=== PATIENT | male | born 1960 | race Caucasian/White ===

== ENCOUNTER 2020-05-08 10:50 | Outpatient (REF) | payer MEDICAID, SELFPAY | END 2020-05-08 10:51 | disposition home or self-care (01) | LOC: HO.LAB 10:50 | PROVIDERS: PCP Internal Medicine; Visit Provider Internal Medicine | DX: Z20.828 Contact with and (suspected) exposure to other viral communicable diseases (principal) | CPT/HCPCS: C9803; U0003 ==

== ENCOUNTER → 2020-11-16 08:55 | Outpatient (REF) | payer MEDICAID, SELFPAY ==
--- NOTE | 2020-11-16 | ECG_ITS ---
Test Reason : QT PROLONG Blood Pressure : / mmHG Vent. Rate : 056 BPM Atrial Rate : 056 BPM P-R Int : 180 ms QRS Dur : 080 ms QT Int : 474 ms P-R-T Axes : -20 -03 027 degrees QTc Int : 457 ms Sinus bradycardia Otherwise normal ECG When compared with ECG of 14-NOV-2015 06:48, No significant change was found Referred By: Steff Rebollar Electronically Signed By:DAVID HOWELL MD
== END ==
LOC: HO.CARD 08:55
PROVIDERS: PCP Internal Medicine; Visit Provider Family Medicine
DX: R94.31 Abnormal electrocardiogram [ECG] [EKG] (principal); Z79.899 Other long term (current) drug therapy
CPT/HCPCS: 93005

== ENCOUNTER 2021-01-09 15:49 | Emergency (ER) | payer MEDICAID, SELFPAY ==
--- NOTE | 2021-01-09 | ECG_ITS ---
Test Reason : CHEST PAIN Blood Pressure : / mmHG Vent. Rate : 064 BPM Atrial Rate : 064 BPM P-R Int : 178 ms QRS Dur : 086 ms QT Int : 418 ms P-R-T Axes : 035 -23 014 degrees QTc Int : 431 ms Normal sinus rhythm Moderate voltage criteria for LVH, may be normal variant Borderline ECG When compared with ECG of 16-NOV-2020 09:18, No significant change was found Referred By: Generic ED Physician Electronically Signed By:Andrea Nina
[2021-01-09 16:26] VITALS: BP 118/77; PULSE 67; RESP 22; TEMP 37.1; O2SAT 94; BMI 38.9
== END 2021-01-09 21:20 | disposition left against medical advice (07) ==
LOC: HO.ED 21:19
PROVIDERS: Emergency Provider Emergency Medicine; PCP Internal Medicine
DX: R07.9 Chest pain, unspecified (principal)
CPT/HCPCS: 93005; 99283

== ENCOUNTER → 2021-04-04 10:28 | Outpatient (REF) | payer MEDICAID, SELFPAY | LOC: HO.CARD 10:28 | PROVIDERS: Visit Provider Internal Medicine | DX: Z13.89 Encounter for screening for other disorder (principal) ==

== ENCOUNTER → 2021-05-09 08:16 | Outpatient (REF) | payer MEDICAID, SELFPAY ==
--- NOTE | 2021-05-09 08:30 | CA_ITS ---
Transthoracic Echocardiogram Patient (Last, First, Middle): Isael Britton A Gender: Male Date of : 1960 Age: 60 Procedure Date: 05/09/2021 Procedure Type: Transthoracic Echocardiogram Location: OP Height: 167.64 cm Weight: 100.7 kg BSA: 2.09 m2 Heart Rate: bpm BP: 145 / 90 mmHg Sr. Merchandise Planner: KARLO Referring MD: Nelly Bach MD Symptoms: E11.66 DM, I27.20 PUL HTN, I50.32 CHRONIC CHF Study Quality: Fair/Contrast ECG Rhythm: Sinus Conclusions: - The left ventricular systolic function is normal. The calculated ejection fraction is 66% by biplane method. - No obvious valvular pathology seen on this study. - The inferior vena cava is mildly dilated and collapses less than 50% with inspiration. Findings Procedure Information Contrast agent, definity, is being given per protocol without apparent complications. Left Ventricle Normal left ventricular cavity size. There is mildly increased left ventricular wall thickness. The left ventricular systolic function is normal. The calculated ejection fraction is 66% by biplane method. There is no evidence of regional wall motion abnormalities. Diastolic function is normal for age. Right Ventricle Normal right ventricular cavity size and systolic function. Atria Both atria are normal in size. Aortic Valve The aortic valve was not well visualized. There is no aortic valve stenosis. There is no aortic valve regurgitation. Mitral Valve The mitral valve appears normal. There is no mitral valve regurgitation. There is no mitral valve stenosis. Pulmonic Valve The pulmonic valve was not well visualized. Tricuspid Valve There is trace tricuspid valve regurgitation. The pulmonary artery systolic pressure is normal. Great Vessels The aortic annulus, sinuses of valsalva, and asc aorta are normal in size. Venous The inferior vena cava is mildly dilated and collapses less than 50% with inspiration. Pericardium/Pleural There is no evidence of pericardial effusion. Prior Study Comparison No significant change compared to prior study dated: 09/05/2014. IVC not described in prior study. Recommendations, Care & Conclusions No obvious valvular pathology seen on this study. Measurements 2D Linear Measurements IVSd: 1.07 0.6-0.9/0.6-1.0 cm LVIDd: 5.16 3.9-5.3/4.2-5.9 cm LVIDd Index: 2.47 2.4-3.2/2.2-3.1 cm/m2 LVIDs: 3.81 2.0-3.6 cm LVPWd: 1.06 0.7-1.1 cm Ao Root: 3.50 2.1-3.5 cm LV Mass: 260.03 67-162/88-224 g LV Mass Index: 124.42 43-95/49-115 g/m2 LVOT Diam: 2.30 3.0+(-)1.3 cm 2D Systolic Function EF 4C: 63.20 >55% EF 2C: 65.50 >55% EF BiP: 65.70 >55% Mitral Valve MV Pk E: 0.72 MV PK A: 1.02 MV Decel Time: 315.00 E/A: 0.70 E'Lateral: 8.70 E'Medial: 6.31 E/E' Med: 11.30 E/E' Lat: 8.20 PHT: 92.00 MVA PHT: 2.39 Decel [place]: 2.27 Aortic Valve AoV Pk Javi: 1.79 AoV Mn Javi: 1.14 AoV VTI: 0.34 AoV Pk Grad: 13.00 Aov Mn Grad: 6.00 FREDRICK Cont.VTI: 2.59 LVOT LVOT Pk Javi: 0.97 LVOT Mn Javi: 0.66 LVOT VTI: 0.21 LVOT Pk Grad: 4.00 LVOT Mn Grad: 2.00 LVOT Diam: 2.30 LVOT Area: 4.15 Diastolic Function MV Pk E: 0.72 MV Pk A: 1.02 E/A: 0.70 E'Medial: 6.31 E/E' Med: 11.30 E' Laterial: 8.70 E/E' Lat: 8.20 Right Ventricle TAPSE (mm): 2.72 TVS' Javi: 19.40 Tricuspid Valve TR Pk Javi: 2.08 TR Pk Grad: 17.00 RA Press: 15.00 RVSP: 32.00 Great Vessels Aorta Ao Root-2D: 3.50 2.0-3.7 cm Ao Asc: 3.20 2.1-3.4 cm Updated in Other Vendor System with Status of Final Camilo Cano MD electronically signed on 05/10/2021 11:30:06 AM with status of Final
== END ==
LOC: HO.CARD 08:16
PROVIDERS: Visit Provider Internal Medicine
DX: I50.32 Chronic diastolic (congestive) heart failure (principal); I27.20 Pulmonary hypertension, unspecified
CPT/HCPCS: 93306; Q9957

== ENCOUNTER 2021-06-18 14:39 | Outpatient (REF) | payer MEDICAID, SELFPAY ==
[2021-06-19 14:29] LABS: H Pylori Breath Test Negative (Negative)
== END 2021-06-18 14:40 | disposition home or self-care (01) ==
LOC: HO.LNP 14:39
PROVIDERS: PCP Internal Medicine; Referring Provider Internal Medicine; Visit Provider Nurse Practitioner Family
DX: K59.04 Chronic idiopathic constipation (principal); R14.0 Abdominal distension (gaseous); K58.1 Irritable bowel syndrome with constipation; K21.9 Gastro-esophageal reflux disease without esophagitis
CPT/HCPCS: 83013; 99202

== ENCOUNTER 2021-06-19 10:32 | Outpatient (REF) | payer MEDICAID, SELFPAY ==
[2021-06-19 11:15] LABS: Hemoglobin 13.3 g/dl (14.0-18.0); Mean Corpuscular HGB Conc 30.9 g/dl (31.0-36.0); Mean Corpuscular Volume 93.9 fL (80.0-98.0); Mean Platelet Volume 9.3 fL (9.4-12.4); Platelet Count 169 X10*3/uL (160-400); Red Blood Count 4.58 X10*6/uL (4.60-5.80); Red Cell Distribution Width 14.6 % (11.0-16.0); White Blood Count 8.9 X10*3/uL (4.8-10.8)
[2021-06-19 11:43] LABS: Alanine Aminotransferase 24 U/L (0-40); Alkaline Phosphatase 122 U/L (39-117); Anion Gap 13 (12-20); Aspartate Amino Transferase 33 U/L (5-37); Bilirubin Total 0.8 mg/dL (0.0-1.0); Blood Urea Nitrogen 21 mg/dL (9-16); Calcium 9.9 mg/dL (8.4-10.2); Carbon Dioxide 30 mmol/L (22-29); Chloride 101 mmol/L (96-108); Estimated Glomerular Filt Rate 54; Glucose Random 141 mg/dL (60-115); Potassium 5.3 mmol/L (3.3-5.1); Sodium 139 mmol/L (135-145); Total Protein 8.2 g/dL (6.5-8.0)
[2021-06-19 12:06] LABS: TSH reflex Free T4 0.72 uIU/mL (0.32-4.0)
[2021-06-19 12:20] LABS: Folate > 20.0 ng/mL (> or = 4.0); Vitamin B12 353 pg/mL (200-900)
[2021-06-22 06:51] LABS: Transglutaminase Ab IgG <1.0 U/mL; Transglutaminase IgA <1.0 U/mL
== END 2021-06-19 10:33 | disposition home or self-care (01) ==
LOC: HO.LAB 10:32
PROVIDERS: PCP Internal Medicine; Visit Provider Nurse Practitioner Family
DX: Z12.11 Encounter for screening for malignant neoplasm of colon (principal); R10.11 Right upper quadrant pain; R19.7 Diarrhea, unspecified; R14.0 Abdominal distension (gaseous)
CPT/HCPCS: 36415; 80053; 82607; 82746; 84443; 85027; 86364

== ENCOUNTER → 2021-07-24 07:52 | Outpatient (BNVA) | payer MEDICAID, SELFPAY | PROVIDERS: PCP Internal Medicine; Referring Provider Internal Medicine; Visit Provider Nurse Practitioner Family | DX: K59.04 Chronic idiopathic constipation (principal); K21.9 Gastro-esophageal reflux disease without esophagitis; K58.1 Irritable bowel syndrome with constipation; R14.0 Abdominal distension (gaseous); R06.02 Shortness of breath; I50.9 Heart failure, unspecified | CPT/HCPCS: 99212 ==

== ENCOUNTER → 2021-08-17 13:36 | Outpatient (BNVA) | payer MEDICAID, SELFPAY | PROVIDERS: PCP Internal Medicine; Visit Provider Hospitalist | DX: G47.33 Obstructive sleep apnea (adult) (pediatric) (principal); R06.00 Dyspnea, unspecified | CPT/HCPCS: 99202 ==

== ENCOUNTER 2021-09-28 11:17 | Inpatient (IN) | payer MEDICAID, SELFPAY ==
[2021-09-28] VITALS (10 sets, daily range): BP systolic 81–123; BP diastolic 47–73; PULSE 47–76; RESP 16–24; TEMP 35.6–38.4; O2SAT 87–95; BMI 41.6
--- NOTE | 2021-09-28 | ECG_ITS ---
Test Reason : Bradycardia Blood Pressure : / mmHG Vent. Rate : 045 BPM Atrial Rate : 045 BPM P-R Int : 236 ms QRS Dur : 094 ms QT Int : 498 ms P-R-T Axes : -21 -04 -04 degrees QTc Int : 430 ms Sinus bradycardia with 1st degree A-V block Otherwise normal ECG When compared to the previous EKG of Vent. rate has decreased Referred By: Gallo Polo Electronically Signed By:DAVID HOWELL MD
--- NOTE | ~2021-09-28 | XR_ITS ---
EXAMINATION: XR CHEST CLINICAL INFORMATION: Severe hypoxemia. Post cardiac arrest. COMPARISON: Previous chest x-ray most recent from yesterday and chest CT 09/28/2021 TECHNIQUE: Frontal view of the chest was obtained. FINDINGS: The endotracheal tube tip is 0.5 cm above the jian and should be pulled back several centimeters. There is a nasogastric tube that projects over the stomach. The tip is not seen. There is a right jugular line with tip projecting over the SVC. Cardiac silhouette is enlarged but stable. The mediastinum appears prominent but stable. When compared with previous CT scan this may be related to lymphadenopathy. The lung volumes are low. There is increasing bilateral airspace disease. There are increasing bilateral pleural effusions. No pneumothorax. XR/XR chest 1V IMPRESSION: Endotracheal tube 0.5 cm above the jian and should be pulled back several centimeters. Nasogastric tube projects over stomach, tip not seen. Low lung volumes. Increasing bilateral airspace disease and bilateral pleural effusions. Findings will be communicated by the [place] work flow room service food server.
--- NOTE | ~2021-09-28 | NM_ITS ---
EXAMINATION: NM LUNG IMAGE PERFUSION CLINICAL INFORMATION: Status post cardiac arrest. Suspected PE. COMPARISON: Chest radiograph done on 09/29/2021. TECHNIQUE: Perfusion only serial gamma scintillation camera images were obtained over the chest in 8 projections, following injecting 4.0 mCi Tc-99m MAA intravenously. The ventilation part of the study could not be obtained (patient was vented in ICU)). FINDINGS: Symmetric radiotracer distribution is noted throughout both lung dubose without evidence of any segmental or large perfusion defect on either side. NM/AR pul perfusion IMPRESSION: Based on the perfusion only modified PIOPED II criteria, pulmonary thromboembolism is considered absent.
--- NOTE | ~2021-09-28 | XR_ITS ---
EXAMINATION: XR CHEST CLINICAL INFORMATION: Respiratory failure COMPARISON: 09/28/2021 TECHNIQUE: Frontal view of the chest was obtained. FINDINGS: The endotracheal tube terminates 0.5 cm above the jian. Enteric tube extends into the stomach. Right internal jugular central venous catheter terminates near the cavoatrial junction. Lung volumes are low. Increased airspace opacity of the right mid to lower lung. Increasing left basilar opacity as well. No pneumothorax. The cardiomediastinal silhouette remains prominent, with a calcified aorta. XR/XR chest 1V IMPRESSION: Endotracheal tube terminates 0.5 cm above the jian. Suggest retraction. Worsening bilateral lung opacities. This critical result was discussed with ADAN Shaw, by telephone at 09/29/2021 3:36 AM and it was ascertained that the content and urgency of the report was understood at the time of direct communication.
--- NOTE | ~2021-09-28 | CT_ITS ---
EXAMINATION: CT CHEST WITHOUT CONTRAST CLINICAL INFORMATION: Cough, shortness of breath, hypoxia. COMPARISON: Chest radiographs dated 09/28/2021 and 11/24/2019. Chest CT scan dated 09/14/2014. TECHNIQUE: Multidetector volumetric CT imaging of the chest was done. Axial MIP volume rendering provided. Sagittal and coronal reformatted images were obtained. This CT examination was performed using dose optimization techniques as appropriate, variously including the following: *Automated exposure control *Adjustment of mA and/or kV according to patient size (this includes techniques or standardized protocols for targeted exams where dose is matched to indication/reason for exam; i.e. extremities or head) *Use of iterative reconstruction technique DLP: 408 mGy-cm FINDINGS: LUNGS/PLEURA/AIRWAYS: Mild respiratory motion artifact limits evaluation. Consolidation is seen posteriorly in the right lower lobe extending to the superior segment with air bronchograms. Linear opacities are seen to a lesser extent in the right middle lobe and left lower lobe. No suspicious pulmonary nodules. No pleural effusions. The airways are patent. MEDIASTINUM: The visualized thyroid gland is unremarkable. Mild atherosclerosis in the thoracic aorta without significant dilatation. Minimal coronary artery calcifications. No pericardial effusion. UPPER ABDOMEN: Hepatic enlargement with surface nodularity as well as upper extremity caudate lobe. Mildly enlarged gastrohepatic and peripancreatic lymph nodes without significant change. Mild interval enlargement of right paratracheal lymph nodes. A inside sales account representative right paratracheal lymph node measures 1.5 cm in short axis (previously 1.2 cm), image 10, series 3. A second nodule measures 1.2 cm (previously 0.9 cm), image 13, series 3). MUSCULOSKELETAL: Unremarkable. SOFT TISSUES: Moderate bilateral gynecomastia. CT/CT chest wo con IMPRESSION: 1. Bilateral consolidation, significantly most pronounced in the right lower lobe suggesting atelectasis and/or infiltrates. This is much more pronounced compared to radiographs from today. Short-term follow-up with PA and lateral views of the chest are recommended as clinically indicated to assess for change. 2. Mild interval enlargement of previously seen enlarged right paratracheal lymph nodes are nonspecific, but may be reactive to this process. 3. Hepatomegaly and cirrhosis with increased caudate lobe hypertrophy. Mildly enlarged gastrohepatic lymph nodes have not significant change. 4. Moderate bilateral gynecomastia was not seen previously.
--- NOTE | ~2021-09-28 | US_ITS ---
EXAMINATION: US VENOUS ULTRASOUND WITH DOPPLER LOWER EXTREMITY, BILATERAL CLINICAL INFORMATION: Evaluate for DVT COMPARISON: Ultrasound August 2014 TECHNIQUE: Ultrasound of the deep veins is performed from the hip to the calf with compression sonography and color and pulse Doppler assessment. Spectral analysis with color-flow imaging is performed. FINDINGS: RIGHT: There is normal venous compression and respiratory variation and augmented flow. The visualized common femoral vein, superficial femoral vein, profunda femoral vein, popliteal vein, and the trifurcation region shows no evidence of deep venous thrombosis. There is no significant popliteal fossa cyst. LEFT: There is normal venous compression and respiratory variation and augmented flow. The visualized common femoral vein, superficial femoral vein, profunda femoral vein, popliteal vein, and the trifurcation region shows no evidence of deep venous thrombosis. There is no significant popliteal fossa cyst. If the patient's symptoms persist, followup ultrasound in 5 days 7 days might be of value to exclude proximal propagation from a non-visualized calf vein. US/US venous duplex LE BI IMPRESSION: No DVT demonstrated in the right and left lower extremity.
--- NOTE | ~2021-09-28 | XR_ITS ---
EXAMINATION: XR CHEST CLINICAL INFORMATION: Hypoxia COMPARISON: Chest 09/26/2021 TECHNIQUE: Frontal view of the chest was obtained. FINDINGS: The lungs are hypoexpanded with bilateral small pleural effusions and bibasilar patchy opacities likely atelectasis and/or consolidation. Heart size enlarged. Pulmonary vascularity is prominent but no congestion seen. Position of right jugular central line and enteric tube are in suspicious for acute position. Tip of endotracheal tube has been advanced and now measures 2.3 cm above the jian XR/XR chest 1V IMPRESSION: Cardiomegaly without congestion. Bilateral pleural effusions with bibasilar atelectasis.
--- NOTE | ~2021-09-28 | CT_ITS ---
EXAMINATION: CT CHEST WITHOUT CONTRAST CLINICAL INFORMATION: Severe hypoxemia after cardiac arrest COMPARISON: Previous chest x-rays most recent from yesterday and chest CT 09/28/2021 TECHNIQUE: Multidetector volumetric CT imaging of the chest was done. Axial MIP volume rendering provided. Sagittal and coronal reformatted images were obtained. This CT examination was performed using dose optimization techniques as appropriate, variously including the following: *Automated exposure control *Adjustment of mA and/or kV according to patient size (this includes techniques or standardized protocols for targeted exams where dose is matched to indication/reason for exam; i.e. extremities or head) *Use of iterative reconstruction technique DLP: 318 mGy-cm FINDINGS: REPLENISHMENT BUYER: LUNGS: There is an endotracheal tube with tip 6 cm above the jian. The lung volumes are low. There is dense bilateral lower lobe consolidation and air bronchograms suggestive of pneumonia. This appears increased from 09/28/2021 exam. There is patchy airspace disease seen in the bilateral upper and right middle lobes that is new and is suggestive of pneumonia as well. MEDIASTINUM: The heart is enlarged. There is no pericardial effusion. There are prominent mediastinal lymph nodes similar to recent exam. There is a nasogastric tube with tip in the stomach. There is a right jugular line with tip in the distal SVC. PLEURA: There are small bilateral pleural effusions. There is no pneumothorax. AXILLA: There is bilateral symmetric gynecomastia. No enlarged axillary lymph nodes. UPPER ABDOMEN: The liver appears cirrhotic. There is no ascites. OSSEOUS STRUCTURES: There are degenerative changes of the spine. No rib or sternal fracture is seen. There are degenerative changes at the sternomanubrial joint. CT/CT chest wo con IMPRESSION: Worsening bilateral multilobar pneumonia greatest in the bilateral lower lobes. Small bilateral pleural effusions. Enlarged heart. Stable mediastinal lymphadenopathy. Cirrhotic-appearing liver. Fleischner guidelines were followed.
--- NOTE | ~2021-09-28 | US_ITS ---
EXAMINATION: US ABDOMEN COMPLETE CLINICAL INFORMATION: Abdominal distention and nausea. Evaluate for hepatomegaly and ascites. COMPARISON: Previous CT of the abdomen and pelvis November [address] from earlier the same day TECHNIQUE: Real-time imaging of the abdominal viscera. FINDINGS: PANCREAS: Not well visualized ABDOMINAL AORTA: Not well visualized INFERIOR VENA CAVA: Not well visualized LIVER: Not well visualized. The liver is echogenic. The liver contour is slightly irregular suggestive of mild cirrhotic change. No biliary duct dilatation or liver lesion is seen. GALLBLADDER: Not visualized. COMMON BILE DUCT: Not visualized.. RIGHT KIDNEY: Normal. The kidney measures 10.3 cm in maximum dimension. LEFT KIDNEY: Normal. The kidney measures 11.5 cm in maximum dimension. SPLEEN: Normal. The spleen measures 9.5 cm in maximum dimension. FREE FLUID: None. US/US abdomen complete IMPRESSION: Very limited exam. No ascites. Echogenic liver and changes of mild cirrhosis.
--- NOTE | ~2021-09-28 | XR_ITS ---
EXAMINATION: XR CHEST CLINICAL INFORMATION: Shortness of breath. Respiratory distress. COMPARISON: Chest radiograph dated from 10/11/2021. TECHNIQUE: AP view of the chest was obtained. FINDINGS: Stable prominence of the cardiomediastinal silhouette. Similar to slightly increased bibasilar airspace opacities and bilateral pleural effusions which are somewhat suboptimally assessed in the setting of low lung volumes. No pneumothorax. No acute osseous abnormalities. XR/XR chest 1V IMPRESSION: Similar to slightly increased bibasilar airspace opacities and bilateral pleural effusions when compared to 10/11/2021.
--- NOTE | ~2021-09-28 | XR_ITS ---
EXAMINATION: XR CHEST CLINICAL INFORMATION: Chest pain. COMPARISON: 11/24/2019 chest radiographs. TECHNIQUE: Frontal view of the chest was obtained. FINDINGS: Pleural thickening is again seen bilaterally most pronounced inferiorly. There is mild prominence of the pulmonary vasculature and cardiac silhouette. The mediastinal structures are unremarkable. XR/XR chest 1V IMPRESSION: Pleural thickening versus small bilateral pleural effusions are similar to the 2019 study likely representing chronic changes. Mild congestion cannot be excluded.
--- NOTE | ~2021-09-28 | XR_ITS ---
EXAMINATION: XR CHEST CLINICAL INFORMATION: Intubated. Previous severe hypoxemia after cardiac arrest. COMPARISON: CT chest 10/01/2021. Chest radiograph 09/30/2021. TECHNIQUE: Frontal view of the chest was obtained. FINDINGS: An endotracheal tube terminates 4 cm superior to the jian. A right internal jugular catheter terminates in the region of the cavoatrial junction. Enteric tube terminates in projection with the stomach. Low lung volumes are present with the fifth anterior rib segments terminating projection with the lung bases. Mild blunting of left right costophrenic sulci. No pneumothoraces. Mild bibasilar airspace type opacities with findings most pronounced the left lung base with obscuration of the left hemidiaphragmatic margin. XR/XR chest 1V IMPRESSION: *Endotracheal tube terminating 4 cm superior to the jian. *Enteric tube terminating within the stomach. *Right internal jugular catheter terminating at the cavoatrial junction. *Small bilateral pleural effusions. *Mild bibasilar atelectasis and/or consolidation. Pulmonary aeration is markedly improved compared with 09/30/2021 9:01 AM chest radiograph.
--- NOTE | ~2021-09-28 | XR_ITS ---
EXAMINATION: XR CHEST CLINICAL INFORMATION: Cough COMPARISON: 10/07/2021 TECHNIQUE: Frontal view of the chest was obtained. FINDINGS: The lungs are hypoinflated. Small bilateral pleural effusions are redemonstrated along with retrocardiac left basilar opacity. No appreciable pneumothorax. Prominent cardiac silhouette is similar to prior. No acute osseous findings are seen. XR/XR chest 1V IMPRESSION: Persistent small pleural effusions and retrocardiac opacity, similar to 10/07/2021.
--- NOTE | ~2021-09-28 | US_ITS ---
EXAMINATION: US VENOUS ULTRASOUND WITH DOPPLER LOWER EXTREMITY, BILATERAL CLINICAL INFORMATION: Fevers COMPARISON: Ultrasound venous Doppler lower extremity bilateral from 09/29/2021 TECHNIQUE: Ultrasound of the deep veins is performed from the hip to the calf with compression sonography and color and pulse Doppler assessment. Spectral analysis with color-flow imaging is performed. Technical limitations secondary to patient intubated in the ICU. FINDINGS: RIGHT: There is normal venous compression and respiratory variation and augmented flow. The visualized common femoral vein, superficial femoral vein, profunda femoral vein, popliteal vein, and the trifurcation region shows no evidence of deep venous thrombosis. There is no significant popliteal fossa cyst. LEFT: There is normal venous compression and respiratory variation and augmented flow. The visualized common femoral vein, superficial femoral vein, profunda femoral vein, popliteal vein, and the trifurcation region shows no evidence of deep venous thrombosis. Left peroneal vein not well visualized. There is no significant popliteal fossa cyst. Left groin lymph node noted measuring 1.0 x 0.6 x 0.8 cm. If the patient's symptoms persist, followup ultrasound in 5 days 7 days might be of value to exclude proximal propagation from a non-visualized calf vein. US/US venous duplex LE BI IMPRESSION: 1. No DVT demonstrated in the bilateral lower extremity. 2. Left peroneal vein not well visualized, limiting evaluation at this level. 3. Left groin lymph node noted measuring 1.0 x 0.6 x 0.8 cm.
--- NOTE | ~2021-09-28 | CT_ITS ---
EXAMINATION: CT HEAD WITHOUT CONTRAST CLINICAL INFORMATION: Coma status post cardiac arrest COMPARISON: Head CT 08/22/2009 TECHNIQUE: Contiguous axial imaging was performed from the skull base to vertex without intravenous administration of contrast. This CT examination was performed using dose optimization techniques as appropriate, variously including the following: *Automated exposure control *Adjustment of mA and/or kV according to patient size (this includes techniques or standardized protocols for targeted exams where dose is matched to indication/reason for exam; i.e. extremities or head) *Use of iterative reconstruction technique DLP: 1016 mGy-cm FINDINGS: There is no evidence of acute intracranial hemorrhage or territorial infarction. No abnormal mass effect or midline shift is appreciated. Menjivar-white differentiation is well preserved. No extra-axial fluid collections. The ventricular system and cortical sulci are normal in size. There are subtle areas of low density in the periventricular and subcortical white matter, most consistent with sequelae of microvascular ischemic change. Bilateral basal ganglia calcifications noted, asymmetrically more prominent on the right. The osseous structures and soft tissues are normal. There are calcifications of the cavernous internal carotid arteries. The visualized paranasal sinuses and mastoid air cells are well aerated. CT/CT head/brain wo con IMPRESSION: Chronic microvascular ischemic changes with no CT evidence of acute intracranial abnormality.
--- NOTE | 2021-09-28 11:33 | ECG_ITS ---
Test Reason : dyspnea Blood Pressure : / mmHG Vent. Rate : 074 BPM Atrial Rate : 074 BPM P-R Int : 224 ms QRS Dur : 082 ms QT Int : 398 ms P-R-T Axes : 007 -10 014 degrees QTc Int : 441 ms Sinus rhythm with 1st degree A-V block Otherwise normal ECG When compared with ECG of 09-JAN-2021 16:37, MI interval has increased Nonspecific T wave abnormality now evident in Lateral leads Referred By: Generic ED Physician Electronically Signed By:DAVID HOWELL MD
--- NOTE | 2021-09-28 11:46 | PC.NURSE ---
Pt comes in via EMS from [facility] with c/o Nausea and cough x 1 week with fevers at home. Pt was covid and flu negative per EMS, on 4L NC and O2 sat in the mid 90's at this time. Pt is NSR on monitor, febrile, lungs diminished in the bases, IV established by EMS. Call castillo within reach, awaiting MD rico, will continue to monitor.
[2021-09-28 11:58] LABS: Hematocrit 35.8 % (42.0-52.0); Hemoglobin 11.7 g/dl (14.0-18.0); Mean Corpuscular HGB Conc 32.7 g/dl (31.0-36.0); Mean Corpuscular Hemoglobin 30.2 pg (27.0-33.0); Mean Corpuscular Volume 92.3 fL (80.0-98.0); Mean Platelet Volume 9.6 fL (9.4-12.4); Platelet Count 201 X10*3/uL (160-400); Red Blood Count 3.88 X10*6/uL (4.60-5.80); Red Cell Distribution Width 14.7 % (11.0-16.0)
[2021-09-28 12:06] LABS: White Blood Count 30.8 X10*3/uL (4.8-10.8)
[2021-09-28 12:08] LABS: Anion Gap 13 (12-20); Blood Urea Nitrogen 31 mg/dL (9-16); Calcium 9.7 mg/dL (8.4-10.2); Carbon Dioxide 29 mmol/L (22-29); Chloride 95 mmol/L (96-108); Creatinine Clr Calc Pharmacy 51.1; Estimated Glomerular Filt Rate 42; Glucose Random 160 mg/dL (60-115); Potassium 4.9 mmol/L (3.3-5.1); Sodium 132 mmol/L (135-145)
[2021-09-28 12:15] LABS: B Type Natriuretic Peptide 1289 pg/mL (<100); Troponin-I High Sensitivity 13.7 ng/L (<3.5-35.0)
[2021-09-28 12:19] LABS: Band Neutrophils Percent 25 % (3-5); Lymphocytes Absolute Manual 0.3 X10*3/uL (1.2-4.9); Lymphocytes Percent Manual 1 % (20-40); Metamyelocytes Absolute 1.2 X10*3/uL; Metamyelocytes Percent 4 %; Monocytes Absolute Manual 1.8 X10*3/uL (0.1-1.2); Monocytes Percent Manual 6 % (2-11); Neutrophils Absolute Manual 27.4 X10*3/uL (2.0-8.3); Neutrophils Percent Manual 64 % (45-73)
[2021-09-28 12:20] LABS: Toxic Vacuolation PRESENT
[2021-09-28 12:21] LABS: Platelet Estimate NORMAL (NORMAL); Platelet Morphology Comment NORMAL; RBC Morphology NORMAL
[2021-09-28] MEDS: Acetaminophen 325 MG TABLET 975 MG PO (12:53)
[2021-09-28] MEDS: cefTRIAXone sodium 1 GM in 0.9 % Sodium Chloride 50 ML IV (12:55)
[2021-09-28 13:04] LABS: Alanine Aminotransferase 18 U/L (0-40); Albumin Level 3.3 g/dL (3.5-5.0); Alkaline Phosphatase 93 U/L (39-117); Aspartate Amino Transferase 21 U/L (5-37); Bilirubin Direct 1.6 mg/dL (0.0-0.5); Bilirubin Total 2.6 mg/dL (0.0-1.0)
[2021-09-28 13:31] LABS: Lactic Acid 2.8 mmol/L (0.5-2.0)
[2021-09-28 13:33] LABS: IDNOW Serial# 55D5AD1C
[2021-09-28 13:34] LABS: COVID-19 Test Negative (Negative)
--- NOTE | 2021-09-28 13:44 | PHA.MEDREC ---
Pharmacy Consult ? Medication Reconciliation Pharmacy has completed the medication reconciliation.
[2021-09-28 13:45] LABS: IDNOW Serial# 16C4AD1C; Influenza A Negative (Negative); Influenza B2 Negative (Negative)
[2021-09-28] MEDS: Albuterol/Iprat 2.5/0.5MG 3 ML AMPUL.NEB INHALE (14:03)
[2021-09-28] MEDS: methylPREDNISolone Sod Succ 125 MG/2 ML VIAL 80 MG IVPUSH (14:12)
--- NOTE | 2021-09-28 15:00 | ED.SOB ---
HPI - SOB/Dyspnea General Chief Complaint: Dyspnea Stated Complaint: nausea Time Seen by Provider: 09/28/21 12:18 Source: patient Mode of arrival: EMS Limitations: language barrier ( Lithuanian-speaking medical insurance clerk utilized) History of Present Illness HPI Narrative: patient presents to the emergency department, from his primary care office at [facility] reporting cough and shortness of breath for 1 week that has become progressively worse. In addition he has been having chest pain for 2 days described as sub sternal, worse with deep inspiration or cough. Associated nausea but no vomiting. Denies known fever, chills, nasal congestion, vomiting, abdominal pain, dysuria, diarrhea, constipation, lower extremity edema, weakness, falls. Upon EMS arrival was noted to be hypoxic with room air saturation in the high 80s, O2 saturation on 4 L between 92 and 94%. Related Data Home Medications Medication Instructions Recorded Confirmed folic acid 1 mg tablet 1 mg PO DAILY 06/18/21 09/28/21 lisinopril 20 mg tablet 20 mg PO DAILY 06/18/21 09/28/21 metformin 850 mg tablet 850 mg PO BIDWM 06/18/21 09/28/21 spironolactone 50 mg tablet 50 mg PO DAILY 06/18/21 09/28/21 thiamine HCl (vitamin B1) 100 mg 100 mg PO DAILY 06/18/21 09/28/21 tablet carvedilol 3.125 mg tablet 1 tab PO BID 09/28/21 09/28/21 furosemide 20 mg tablet 1 tab PO DAILY 09/28/21 09/28/21 omeprazole 40 mg capsule,delayed 40 mg PO DAILY@0630 09/28/21 09/28/21 release prazosin 1 mg capsule 1 cap PO BEDTIME PRN 09/28/21 09/28/21 Previous Rx's Medication Instructions Recorded methylcellulose (laxative) 500 mg 500 mg PO DAILY #30 tab 07/24/21 tablet (Citrucel) sennosides 8.6 mg tablet (Natural 17.2 mg PO BEDTIME #60 tab 07/24/21 Senna Laxative) simethicone 180 mg capsule (Gas 180 mg PO BID PRN #60 cap 07/24/21 Relief (simethicone)) ipratropium 20 mcg-albuterol 100 1 puff INHALATION QID 30 Days #4 g 08/17/21 mcg/actuation mist for inhalation (Combivent Respimat) Allergies Allergy/AdvReac Type Severity Reaction Status Date / Time aspirin [ASPIRIN] Allergy Unknown RASH Unverified 08/17/21 13:44 ibuprofen Allergy Unknown nausea and Verified 08/17/21 13:44 vomiting Review of Systems Review of Systems: Constitutional : Positive fever, No Chills, no weight loss ENT/Mouth : No sore throat, No Rhinorrhea, No Swallowing Difficulty Eyes: No Eye Pain, No Swelling, No Redness Cardiovascular : positive Chest Pain, positive SOB, positive Orthopnea, no Edema Respiratory : positive Cough, positive Sputum, positive Wheezing, positive dyspnea Gastrointestinal : positive Nausea, No Vomiting, No Diarrhea, No abdominal Pain, No Hematochezia, No Melena Genitourinary : No Dysuria, No Urinary Frequency, No Hematuria Musculoskeletal : No joint pain, No Myalgias Skin : No Skin Lesions, No rash Neuro : No Weakness, No Numbness, No Dizziness, No Headache Psych : No Anxiety/Panic, No Depression Heme/Lymph: No Bruising, No Lymphadenopathy Endocrine : No Polyuria, No Polydipsia Yes all other systems are reviewed and are negative FORMERLY [facility], [facility] Past Medical History Attestation statement: The following information was validated with the patient. Source: old records reviewed Medical History (Updated 09/28/21 @ 15:54 by Shania Navarro MD) Chronic kidney disease Congestive heart failure Diabetes DARRIAN (obstructive sleep apnea) Family History Family History Mother Cancer Diabetes Social History Social History Household Members: None Housing: House Do you presently have visiting nurse or other home services: No Patient Tobacco Use Status: Never used Tobacco e-Cigarette/Vaping Use: Never Used Use of substances other than those prescribed or required for medical reasons: No Currently Displaying Signs/Symptoms of Drug Intoxication Withdrawal: No Any prior treatment program specific to substance use: Yes Have you been hit, kicked, punched, or otherwise hurt by someone within the past year? If so, by whom?: No Do you feel safe in your current relationship?: No Is there a partner from a previous relationship who is making you feel unsafe now?: No Are you made to feel afraid or neglected: No Advance Directives: No Advance Directives Information Provided: Yes Advance Directives on File: No Do you have thoughts of harming others: None Do you have a plan to hurt others: No Plan Physical Exam Vital Signs: Vital Signs: Last Vital Signs Temp 98.0 F 09/28/21 19:06 Pulse 57 09/28/21 19:06 Resp 20 09/28/21 19:06 BP 101/59 L 09/28/21 19:06 Pulse Ox 90 L 09/28/21 19:06 Oxygen Flow Rate 4 09/28/21 11:25 BMI result Body Mass Index 41.6 Vital signs have been reviewed and appeared to be correct. Blood pressure low normal 101/60.? Heart rate normal.? tachypnea. initially febrile 101.2? initial hypoxia with O2 saturation high 80s improved on nasal cannula to 92% at 4 L Appearance: Alert.?Oriented to person, place and time. No acute distress.?Normal affect. Eyes: Pupils equal, round and reactive to light.?EOMi ENT: Pharynx normal.?? Neck: Normal inspection.? Neck supple.?? CVS: Heart sounds normal. Normal heart rate and rhythm.? Pulses normal.?? Respiratory: notable increased work of breathing. Congested cough. Right lower lobe with expiratory wheezing, left lower lobe with rales. Upper lobes coarse throughout. Abdomen: Soft, Semi firm, distended. Normoactive bowel sounds. No pulsatile mass.?? Skin: Skin warm and dry.? Normal skin color.? Normal skin turgor.?? Extremities: nonpitting lower extremity edema.? No calf ttp? Neuro: Moves all extremities spontaneously. Sensation intact bilaterally. CN II-XII intact. No focal neuro deficits. Ambulates with normal steady gait. Course Course Course Narrative: 1230: first contact with patient patient is a 61-year-old male with a past medical history of congestive heart failure recent echocardiogram May 2022 1 revealing ejection fraction of 66%, CKD, diabetes managed on metformin, DARRIAN, irritable bowel syndrome, GERD who presents to the emergency department for evaluation cough and shortness of breath. He is ill-appearing, toxic, febrile, with increased work of breathing. Protocol labs obtained imcluding CBC reveals significant leukocytosis with WBC 30.8 with left shift, CMP revealing acute kidney injury BUN 31 creatinine 1.69, with mild hyponatremia 132. EKG reveals sinus rhythm with first-degree AV block no acute concern for ischemia, and troponin 13.7. BNP is elevated 1289. At this time patient meeting sirs criteria, concern for sepsis secondary to respiratory infection, blood cultures and lactic acid ordered at this time, ceftriaxone 1 g IV ordered, normal saline 30 mg/kg fluid bolus ordered at ideal body weight, tylenol for fever, patient to remain on O2 via nasal cannula at this time. Will obtain Chest x-ray to evaluate for consolidation/ infiltrate/ mass/ pulmonary congestion in addition to urinalysis to evaluate for infection. Reevaluation(s) Reevaluation #1: initial lactic acid 2.8. Chest x-ray revealing pleural thickening versus small bilateral pleural effusions similar to prior 2020 study, mild congestion cannot be excluded. Given patient's presentation, persistent increased work of breathing will obtained CT chest to further evaluate. Continue to have high suspicion for pneumonia at this time, will add doxycycline for additional coverage, Solu-Medrol IV ordered, addition to DuoNeb updraft. COVID- 19 and influenza testing were negative. Time: 13:00 Reevaluation #2: CT of the chest reveals bilateral consolidations significantly most pronounced in the right lower lobe. Hepatomegaly and cirrhosis with increased caudate lobe hypertrophy, will obtain ultrasound of the abdomen to further evaluate for ascites. Spoke with Dr Navarro, on hospital service, who accepts patient for admission to medicine, Patient is agreeable with this plan. Time: 14:45 MDM - SOB/Dyspnea Medical Records Attestation: I reviewed the patient's medical records. Lab Data Attestation: I reviewed the patient's lab results. Result diagrams: 09/28/21 11:46 09/28/21 11:46 Labs: Lab Results 09/28/21 09/28/21 09/28/21 Range/Units 11:46 11:46 11:46 WBC 30.8 H* (4.8-10.8) X10*3/uL RBC 3.88 L (4.60-5.80) X10*6/uL Hgb 11.7 L (14.0-18.0) g/dl Hct 35.8 L (42.0-52.0) % MCV 92.3 (80.0-98.0) fL MCH 30.2 (27.0-33.0) pg MCHC 32.7 (31.0-36.0) g/dl RDW 14.7 (11.0-16.0) % Plt Count 201 (160-400) X10*3/uL MPV 9.6 (9.4-12.4) fL Immature Gran % (Auto) Cancelled Neut % (Auto) Cancelled Lymph % (Auto) Cancelled [place] % (Auto) Cancelled Eos % (Auto) Cancelled Baso % (Auto) Cancelled Lymph # (Auto) Cancelled [place] # (Auto) Cancelled Eos # (Auto) Cancelled Baso # (Auto) Cancelled Abs Immat Gran (auto) Cancelled Absolute Neuts (auto) Cancelled Absolute Nucleated RBC 0.000 (0.0-0.012) X10*3/uL Nucleated RBC % (auto) 0.0 (0.0-0.2) /100WBC Neutrophils % (Manual) 64 (45-73) % Band Neutrophils % 25 H (3-5) % Lymphocytes % (Manual) 1 L (20-40) % Monocytes % (Manual) 6 (2-11) % Metamyelocytes % 4 % Abs Neuts (Manual) 27.4 H (2.0-8.3) X10*3/uL Lymphocytes # (Manual) 0.3 L (1.2-4.9) X10*3/uL Monocytes # (Manual) 1.8 H (0.1-1.2) X10*3/uL Metamyelocytes # 1.2 X10*3/uL Toxic Vacuolation PRESENT Platelet Estimate NORMAL (NORMAL) Plt Morphology Comment NORMAL RBC Morphology NORMAL Sodium 132 L (135-145) mmol/L Potassium 4.9 (3.3-5.1) mmol/L Chloride 95 L (96-108) mmol/L Carbon Dioxide 29 (22-29) mmol/L Anion Gap 13 (12-20) BUN 31 H (9-16) mg/dL Creatinine 1.69 H (0.5-1.4) mg/dL Estim Creat Clear Calc 51.1 Estimated GFR 42 Random Glucose 160 H (60-115) mg/dL Lactic Acid (0.5-2.0) mmol/L Calcium 9.7 (8.4-10.2) mg/dL Total Bilirubin 2.6 H (0.0-1.0) mg/dL Direct Bilirubin 1.6 H (0.0-0.5) mg/dL AST 21 (5-37) U/L ALT 18 (0-40) U/L Alkaline Phosphatase 93 D (39-117) U/L Troponin I High Sens 13.7 (<3.5-35.0) ng/L B-Natriuretic Peptide 1289 H (<100) pg/mL Total Protein 7.0 (6.5-8.0) g/dL Albumin 3.3 L (3.5-5.0) g/dL COVID-19 (SHERITA) (Negative) COVID-19 Clin Com Influenza Type A (HIEN) (Negative) Influenza Type B (HIEN) (Negative) Influenza A & B Note 09/28/21 09/28/21 09/28/21 Range/Units 13:00 13:00 13:00 WBC (4.8-10.8) X10*3/uL RBC (4.60-5.80) X10*6/uL Hgb (14.0-18.0) g/dl Hct (42.0-52.0) % MCV (80.0-98.0) fL MCH (27.0-33.0) pg MCHC (31.0-36.0) g/dl RDW (11.0-16.0) % Plt Count (160-400) X10*3/uL MPV (9.4-12.4) fL Immature Gran % (Auto) Neut % (Auto) Lymph % (Auto) [place] % (Auto) Eos % (Auto) Baso % (Auto) Lymph # (Auto) [place] # (Auto) Eos # (Auto) Baso # (Auto) Abs Immat Gran (auto) Absolute Neuts (auto) Absolute Nucleated RBC (0.0-0.012) X10*3/uL Nucleated RBC % (auto) (0.0-0.2) /100WBC Neutrophils % (Manual) (45-73) % Band Neutrophils % (3-5) % Lymphocytes % (Manual) (20-40) % Monocytes % (Manual) (2-11) % Metamyelocytes % % Abs Neuts (Manual) (2.0-8.3) X10*3/uL Lymphocytes # (Manual) (1.2-4.9) X10*3/uL Monocytes # (Manual) (0.1-1.2) X10*3/uL Metamyelocytes # X10*3/uL Toxic Vacuolation Platelet Estimate (NORMAL) Plt Morphology Comment RBC Morphology Sodium (135-145) mmol/L Potassium (3.3-5.1) mmol/L Chloride (96-108) mmol/L Carbon Dioxide (22-29) mmol/L Anion Gap (12-20) BUN (9-16) mg/dL Creatinine (0.5-1.4) mg/dL Estim Creat Clear Calc Estimated GFR Random Glucose (60-115) mg/dL Lactic Acid 2.8 H* (0.5-2.0) mmol/L Calcium (8.4-10.2) mg/dL Total Bilirubin (0.0-1.0) mg/dL Direct Bilirubin (0.0-0.5) mg/dL AST (5-37) U/L ALT (0-40) U/L Alkaline Phosphatase (39-117) U/L Troponin I High Sens (<3.5-35.0) ng/L B-Natriuretic Peptide (<100) pg/mL Total Protein (6.5-8.0) g/dL Albumin (3.5-5.0) g/dL COVID-19 (SHERITA) Negative (Negative) COVID-19 Clin Com See Note Influenza Type A (HIEN) Negative (Negative) Influenza Type B (HIEN) Negative (Negative) Influenza A & B Note See Note Imaging Data CT scan - chest: Radiologist's impression: CT/CT chest wo con IMPRESSION: 1. Bilateral consolidation, significantly most pronounced in the right lower lobe suggesting atelectasis and/or infiltrates. This is much more pronounced compared to radiographs from today. Short-term follow-up with PA and lateral views of the chest are recommended as clinically indicated to assess for change. 2. Mild interval enlargement of previously seen enlarged right paratracheal lymph nodes are nonspecific, but may be reactive to this process. 3. Hepatomegaly and cirrhosis with increased caudate lobe hypertrophy. Mildly enlarged gastrohepatic lymph nodes have not significant change. 4. Moderate bilateral gynecomastia was not seen previously. Chest x-ray: Radiologist's impression: XR/XR chest 1V IMPRESSION: Pleural thickening versus small bilateral pleural effusions are similar to the 2020 study likely representing chronic changes. Mild congestion cannot be excluded. ECG Data Attestation: I personally reviewed and interpreted this ECG as follows: ECG interpretation date: 09/28/21 Prior ECG tracings: available for review Interpretation: Rate: 74 Rhythm:? sinus rhythm with 1st degree AV block [place]:? Normal P waves.? prolonged ABDIRIZAK, 224 Normal QRS complex.?? ST T wave :?? no ST elevation, no ST depression, qTC: 441 prior studies:? January 2021 The study has been interpreted contemporaneously by me. Critical Care Time Critical Care Time Critical Care Time: Yes Total Critical Care Time: 45 Attestation: I personally attest to this time spent taking care of the patient Discharge Plan Discharge Clinical Impression: Community acquired pneumonia, Sepsis Patient Disposition: Admitted As Inpatient Interventions: Admission Worksheet (ED) Last Done: 09/28/21 16:42 Discharge Date/Time: 09/28/21 16:43
[2021-09-28 15:10] LABS: Reflex Lactate? Lactic Acid Added
[2021-09-28] MEDS: Azithromycin 500 MG in 0.9 % Sodium Chloride 250 ML 125 MG IV (15:38)
--- NOTE | 2021-09-28 15:42 | PM.IMHP ---
History of Present Illness Date of Service: 09/28/21 Chief Complaint: abdominal bloating, coughing a 61 years old male with PMH of diabetes, HTN, morbid obesity among others who presents to the hospital with shortness of breath, cough and abdominal bloating for 1 week.His difficulty breathing has been associated with subjective fever, chills, coughing and shortness of breath with exertion. Reported chest tightness specially after coughing episodes. Denies any nausea, vomiting, change in bowel habit, urinary symptoms. The patient reported that he has been having abdominal bloating and discomfort for the last few months that was evaluated by Gastroenterology previously as reported shortness of breath that was also evaluated by pulmonology with a plan to do Pulmonary function test next week. In the emergency he was found septic with a vitals of pneumonia will chest images. Noted to have an evidence of cirrhosis that he reports being unaware of but his medication list suggest he is on some medications for cirrhosis. Admitted for further evaluation and treatment. Review of Systems Review of Systems: No fever, chills or weakness No chest pain, palpitation No shortness of breath or coughing No abdominal pain, nausea or vomiting No urinary symptoms No any rash or wounds [facility] Medical History (Updated 09/28/21 @ 15:54 by Shania Navarro MD) Chronic kidney disease Congestive heart failure Diabetes DARRIAN (obstructive sleep apnea) Family History Mother Cancer Diabetes Social History Patient Tobacco Use Status: Never used Tobacco Advance Directives: No Advance Directives Information Provided: Yes Meds Allergies Allergy/AdvReac Type Severity Reaction Status Date / Time aspirin [ASPIRIN] Allergy Unknown RASH Unverified 08/17/21 13:44 ibuprofen Allergy Unknown nausea and Verified 08/17/21 13:44 vomiting Active Medications: Current Medications Albuterol/Ipratropium (Albuterol/Iprat 2.5/0.5mg 3 Ml Ampul.Neb) 3 ml INHALE RQ6H PRN PRN Reason: Shortness of Breath/Wheezing Carvedilol (Carvedilol 3.125 Mg Tablet) 3.125 mg PO BID THAI; Protocol Folic Acid (Folic Acid 1 Mg Tablet) 1 mg PO DAILY THAI Furosemide (Furosemide 20 Mg Tablet) 20 mg PO DAILY THAI; Protocol Azithromycin 500 mg/ Sodium (Chloride) 250 mls @ 125 mls/hr IV Q24H THAI Last Admin: 09/28/21 15:38 Dose: 125 mls/hr Documented by: Piperacillin Sod/Tazobactam (Sod 3.375 gm/ Sodium Chloride) 50 mls @ 100 mls/hr IV Q6H [facility] Insulin Human Lispro (Insulin Lispro 100 Unit/Ml 3 Ml Vial) 0 unit SUBCUT QIDACHS THAI; Protocol Lactulose (Lactulose 20 Gm/30 Ml Solution) 20 gm PO DAILY [facility] Lisinopril (Lisinopril 20 Mg Tablet) 20 mg PO DAILY THAI; Protocol Omeprazole (Omeprazole 40 Mg Capsule.Dr) 40 mg PO DAILY@0630 [facility] Ondansetron HCl (Ondansetron Hcl 4 Mg/2 Ml Vial) 4 mg IVPUSH Q8H PRN PRN Reason: Nausea and Vomiting Pharmacy Consult (Consult Rx Perform Med Rec) 1 each MISCELLANE ONCE PRN PRN Reason: Consult order Pharmacy Consult (Consult Rx Etoh Phenob Po Dose) 1 each MISCELLANE ONCE PRN; Protocol PRN Reason: Consult order Prazosin HCl (Prazosin Hcl 1 Mg Capsule) 1 mg PO BEDTIME PRN; Protocol PRN Reason: nightmares Senna (Sennosides 8.6 Mg Tablet) 17.2 mg PO BEDTIME [facility] Simethicone (Simethicone 80 Mg Tab.Chew) 80 mg PO QIDWMHS [facility] Sodium Chloride (0.9 % Sodium Chloride Flush 3 Ml Syringe) 3 ml IVFLUSH QSHIFT [facility] Spironolactone (Spironolactone 25 Mg Tablet) 50 mg PO DAILY [facility]; Protocol Thiamine HCl (Thiamine Hcl 100 Mg Tablet) 100 mg PO DAILY [facility] Home Medications Medication Instructions Recorded Confirmed Last Taken Type folic acid 1 mg tablet 1 mg PO DAILY 06/18/21 09/28/21 Unknown History lisinopril 20 mg tablet 20 mg PO DAILY 06/18/21 09/28/21 Unknown History metformin 850 mg tablet 850 mg PO BIDWM 06/18/21 09/28/21 Unknown History spironolactone 50 mg tablet 50 mg PO DAILY 06/18/21 09/28/21 Unknown History thiamine HCl (vitamin B1) 100 mg 100 mg PO DAILY 06/18/21 09/28/21 Unknown History tablet carvedilol 3.125 mg tablet 1 tab PO BID 09/28/21 09/28/21 Unknown History furosemide 20 mg tablet 1 tab PO DAILY 09/28/21 09/28/21 Unknown History omeprazole 40 mg capsule,delayed 40 mg PO DAILY@0630 09/28/21 09/28/21 Unknown History release prazosin 1 mg capsule 1 cap PO BEDTIME PRN 09/28/21 09/28/21 Unknown History Physical Exam Vital Signs and Narrative: Vital Signs: Last Vital Signs Temp 98.6 F 09/28/21 14:13 Pulse 62 09/28/21 14:13 Resp 24 H 09/28/21 14:13 BP 101/60 09/28/21 14:13 Pulse Ox 92 09/28/21 13:27 Oxygen Flow Rate 4 09/28/21 11:25 BMI result Body Mass Index 41.6 Const: Other: Constitutional : Alert, oriented, not in distress Blood looks uncomfortable Neck : Normal inspection, Supple Cardiovascular : RRR, no JVP, Trace bilateral lower extremity edema Respiratory : decreased bilateral air entry mainly in the right-side with associated coarse crackles, no wheezes or rhonchi Gastrointestinal: soft, lax, Normal bowel sounds, Non tender, distended with no clear ascites Skin : Warm, Dry with associated bilateral Gynecomastia Neurological : Alert & oriented to self and place but seems unsure about answers, No focal deficit Results Labs CBC and Chem 7: 09/28/21 11:46 09/28/21 11:46 Labs: Laboratory Results - last 24 hr 09/28/21 09/28/21 09/28/21 11:46 11:46 11:46 MCV 92.3 MCH 30.2 MCHC 32.7 RDW 14.7 Plt Count 201 MPV 9.6 Immature Gran % (Auto) Cancelled Neut % (Auto) Cancelled Lymph % (Auto) Cancelled [place] % (Auto) Cancelled Eos % (Auto) Cancelled Baso % (Auto) Cancelled Lymph # (Auto) Cancelled [place] # (Auto) Cancelled Eos # (Auto) Cancelled Baso # (Auto) Cancelled Abs Immat Gran (auto) Cancelled Absolute Neuts (auto) Cancelled Absolute Nucleated RBC 0.000 Nucleated RBC % (auto) 0.0 Neutrophils % (Manual) 64 Band Neutrophils % 25 H Lymphocytes % (Manual) 1 L Monocytes % (Manual) 6 Metamyelocytes % 4 Abs Neuts (Manual) 27.4 H Lymphocytes # (Manual) 0.3 L Monocytes # (Manual) 1.8 H Metamyelocytes # 1.2 Toxic Vacuolation PRESENT Platelet Estimate NORMAL Plt Morphology Comment NORMAL RBC Morphology NORMAL Anion Gap 13 Estim Creat Clear Calc 51.1 Estimated GFR 42 Random Glucose 160 H Lactic Acid Calcium 9.7 Total Bilirubin 2.6 H Direct Bilirubin 1.6 H AST 21 ALT 18 Alkaline Phosphatase 93 D Troponin I High Sens 13.7 B-Natriuretic Peptide 1289 H Total Protein 7.0 Albumin 3.3 L COVID-19 (SHERITA) COVID-19 Clin Com Influenza Type A (HIEN) Influenza Type B (HIEN) Influenza A & B Note 09/28/21 09/28/21 09/28/21 13:00 13:00 13:00 MCV MCH MCHC RDW Plt Count MPV Immature Gran % (Auto) Neut % (Auto) Lymph % (Auto) [place] % (Auto) Eos % (Auto) Baso % (Auto) Lymph # (Auto) [place] # (Auto) Eos # (Auto) Baso # (Auto) Abs Immat Gran (auto) Absolute Neuts (auto) Absolute Nucleated RBC Nucleated RBC % (auto) Neutrophils % (Manual) Band Neutrophils % Lymphocytes % (Manual) Monocytes % (Manual) Metamyelocytes % Abs Neuts (Manual) Lymphocytes # (Manual) Monocytes # (Manual) Metamyelocytes # Toxic Vacuolation Platelet Estimate Plt Morphology Comment RBC Morphology Anion Gap Estim Creat Clear Calc Estimated GFR Random Glucose Lactic Acid 2.8 H* Calcium Total Bilirubin Direct Bilirubin AST ALT Alkaline Phosphatase Troponin I High Sens B-Natriuretic Peptide Total Protein Albumin COVID-19 (SHERITA) Negative COVID-19 Clin Com See Note Influenza Type A (HIEN) Negative Influenza Type B (HIEN) Negative Influenza A & B Note See Note Imaging Radiologist's Impressions: Impressions Chest X-Ray 09/28/21 12:00 IMPRESSION: Pleural thickening versus small bilateral pleural effusions are similar to the 2019 study likely representing chronic changes. Mild congestion cannot be excluded. Chest CT 09/28/21 13:42 IMPRESSION: 1. Bilateral consolidation, significantly most pronounced in the right lower lobe suggesting atelectasis and/or infiltrates. This is much more pronounced compared to radiographs from today. Short-term follow-up with PA and lateral views of the chest are recommended as clinically indicated to assess for change. 2. Mild interval enlargement of previously seen enlarged right paratracheal lymph nodes are nonspecific, but may be reactive to this process. 3. Hepatomegaly and cirrhosis with increased caudate lobe hypertrophy. Mildly enlarged gastrohepatic lymph nodes have not significant change. 4. Moderate bilateral gynecomastia was not seen previously. Assessment and Plan (1) Community acquired pneumonia: Status: Acute (2) Sepsis: Status: Acute (3) Lactic acidosis: Status: Acute (4) Hyponatremia: Status: Acute (5) Liver cirrhosis: Status: Acute (6) CKD (chronic kidney disease) stage 3, GFR 30-59 ml/min: Status: Acute Plan a 61 years old male with PMH of diabetes, HTN, morbid obesity among others who presents to the hospital with shortness of breath, cough and abdominal bloating for 1 week. sepsis secondary to aspiration pneumonia Seems more on the right side involvement per images Pending cultures Start IV Zosyn and azithromycin Wean oxygen as tolerated Lactic acidosis LA of 2.8, received bolus of fluid To repeat Per protocol worsening CKD stage 3 Creatinine of 1.6 Likely secondary to diabetes, cirrhosis Hold nephrotoxic medications Monitor BMP Liver cirrhosis Patient report being unaware of diagnosis but he is all medications to treated Try to get information from PCP Check hepatitis profile and INR continue Aldactone alcohol abuse High risk for withdrawal Start CIWA Start phenobarbital protocol Continue thiamine and folic acid Type 2 diabetes SSI diabetic diet DVT PPX SCDs for now Quality Stroke Does the patient have a stroke diagnosis?: No VTE Prior VTE?: No VTE Risk Level:: Medical - moderate - high VTE Device Contraindication: N/A - Device Ordered VTE Drug Contraindication: Treatment Not Indicated
--- NOTE | 2021-09-28 16:05 | PC.NURSE ---
Medicated as per MAR orders, CIWA 5 at this time. US at bedside. Will continue to monitor.
[2021-09-28 16:30] LABS: INTERNATIONAL NORM RATIO 1.4 (0.9-1.1)
[2021-09-28 16:39] LABS: ~Lactic Acid-LAB USE ONLY 2.1 mmol/L (0.5-2.0)
[2021-09-28 17:43] LABS: Glucose, Whole Blood 111 mg/dL (60-115)
[2021-09-28 18:21] LABS: Reflex Lactate? 2 Y
[2021-09-28] MEDS: Piperacillin Sodium/Tazobactam 3.375 GM in 0.9 % Sodium Chloride 50 ML IV ×2 (18:22→22:48)
[2021-09-28] MEDS: Simethicone 80 MG TAB.CHEW PO ×2 (18:33→20:32)
[2021-09-28 18:58] LABS: ~Lactic Acid-LAB USE ONLY 2.5 mmol/L (0.5-2.0)
[2021-09-28 20:09] LABS: Glucose, Whole Blood 140 mg/dL (60-115)
--- NOTE | 2021-09-28 20:19 | PM.EVENT ---
Event Note Date of Service: 09/28/21 Event Note: pt has worsening lactic acidosis i am aware of his elevated BNP but has sepsis therefore will start him on fluids and monitor resp status
[2021-09-28] MEDS: Lactated Ringers 1,000 ML 80 ML IVCONT (20:30)
[2021-09-28] MEDS: carvediloL 3.125 MG TABLET PO (20:31)
[2021-09-28] MEDS: 0.9 % Sodium Chloride Flush 3 ML SYRINGE IVFLUSH (20:31)
[2021-09-28] MEDS: Sennosides 8.6 MG TABLET 17.2 MG PO (20:32)
[2021-09-29] VITALS (36 sets, daily range): BP systolic 79–142; BP diastolic 49–88; PULSE 47–92; RESP 18–22; TEMP 33–36.9; O2SAT 87–96; BMI 41.5
--- NOTE | 2021-09-29 | ECG_ITS ---
Test Reason : RHYTHM CHANGE Blood Pressure : / mmHG Vent. Rate : 068 BPM Atrial Rate : 068 BPM P-R Int : 176 ms QRS Dur : 090 ms QT Int : 398 ms P-R-T Axes : 039 -02 068 degrees QTc Int : 423 ms Normal sinus rhythm Normal ECG When compared with ECG of 28-SEP-2021 23:02, ME interval has decreased Vent. rate has increased BY 23 BPM Nonspecific T wave abnormality, worse in Lateral leads Referred By: Wesley Busby Electronically Signed By:DAVID HOWELL MD
[2021-09-29 00:21] LABS: Thyroid Stimulating Hormone 0.82 uIU/mL (0.32-4.0)
[2021-09-29 02:09] LABS: Glucose, Whole Blood 169 mg/dL (60-115)
[2021-09-29] MEDS: propofoL 1,000 MG/100 ML VIAL 19.19 MG IVCONT (02:25)
[2021-09-29] MEDS: Furosemide 40 MG/4 ML VIAL IVPUSH (02:30)
[2021-09-29] MEDS: Rocuronium Bromide 50 MG/5 ML VIAL 30 MG IVPUSH (02:30)
--- NOTE | 2021-09-29 02:33 | PM.EVENT ---
Event Note Date of Service: 09/29/21 Event Note: Benito alvarado was called on the patient around 01:50 after he became bradycardic and went into cardiac arrest. Multiple round of epi, sodium bicarb, as well as calcium gluconate were administered with CPR. Patient was intubated, and Blake was achieved at around 02:10. Throughout the cardiac arrest patient was in asystole. Around 23:00 patient was noted to be bradycardic, an EKG was obtained which showed sinus bradycardia with first-degree AV block. Patient at the time was lethargic but arousable, EKG now shows left bundle branch block. Patient has been transferred to the ICU for further management.
[2021-09-29 02:39] LABS: VBG Base Excess -7.6 mmol/L; VBG HCO3 23 mmol/L (22-26); VBG pCO2 74 mmHg; VBG pO2 58 mmHg
[2021-09-29 02:46] LABS: Hematocrit 41.4 % (42.0-52.0); Hemoglobin 12.6 g/dl (14.0-18.0); Mean Corpuscular HGB Conc 30.4 g/dl (31.0-36.0); Mean Corpuscular Hemoglobin 29.7 pg (27.0-33.0); Mean Corpuscular Volume 97.6 fL (80.0-98.0); Mean Platelet Volume 10.1 fL (9.4-12.4); Platelet Count 215 X10*3/uL (160-400); Red Blood Count 4.24 X10*6/uL (4.60-5.80)
[2021-09-29] MEDS: Heparin Sodium,Porcine/1/2NS 25,000 UNIT/250 ML IV.SOLN 14.92 UNIT IVCONT (02:46)
[2021-09-29 02:47] LABS: White Blood Count 36.6 X10*3/uL (4.8-10.8)
[2021-09-29 03:01] LABS: D Dimer High Sensitivity 10034 NG/ML
[2021-09-29 03:02] LABS: Magnesium 2.7 mg/dL (1.6-2.6)
[2021-09-29 03:07] LABS: B Type Natriuretic Peptide 970 pg/mL (<100)
[2021-09-29] MEDS: Heparin Sodium,Porcine 5,000 UNIT/ML VIAL 8500 UNIT IVPUSH (03:07)
[2021-09-29 03:08] LABS: Alanine Aminotransferase 145 U/L (0-40); Albumin Level 3.1 g/dL (3.5-5.0); Alkaline Phosphatase 95 U/L (39-117); Anion Gap 25 (12-20); Aspartate Amino Transferase 252 U/L (5-37); Bilirubin Total 2.3 mg/dL (0.0-1.0); Blood Urea Nitrogen 57 mg/dL (9-16); Calcium 12.3 mg/dL (8.4-10.2); Carbon Dioxide 20 mmol/L (22-29); Chloride 96 mmol/L (96-108); Creatinine Clr Calc Pharmacy 24.8; Estimated Glomerular Filt Rate 18; Glucose Random 154 mg/dL (60-115); Potassium 5.5 mmol/L (3.3-5.1); Sodium 135 mmol/L (135-145); Total Protein 7.4 g/dL (6.5-8.0)
[2021-09-29 03:09] LABS: Band Neutrophils Percent 7 % (3-5); Lymphocytes Absolute Manual 1.5 X10*3/uL (1.2-4.9); Lymphocytes Percent Manual 4 % (20-40); Macrocytosis 1+ (5-14) /OIF; Monocytes Absolute Manual 0.4 X10*3/uL (0.1-1.2); Monocytes Percent Manual 1 % (2-11); Neutrophils Absolute Manual 34.8 X10*3/uL (2.0-8.3); Neutrophils Percent Manual 88 % (45-73); Platelet Estimate NORMAL (NORMAL); RBC Morphology NOTED
[2021-09-29 03:10] LABS: Dohle Bodies PRESENT; Large Platelet PRESENT; Platelet Morphology Comment NORMAL; Polychromasia 1+ (0-2) /OIF; Toxic Vacuolation PRESENT
[2021-09-29 03:10] LABS: Venous Blood Gas Refer to POC result
--- NOTE | 2021-09-29 03:13 | W.PM.CCCN ---
History of Present Illness Data of Consult Primary Care Provider: Nelly Bach MD [facility] Past Medical History Medical History (Updated 09/28/21 @ 15:54 by Shania Navarro MD) Chronic kidney disease Congestive heart failure Diabetes DARRIAN (obstructive sleep apnea) Family History Family History Mother Cancer Diabetes Social History Social History Household Members: None Housing: House Do you presently have visiting nurse or other home services: No Patient Tobacco Use Status: Never used Tobacco e-Cigarette/Vaping Use: Never Used Use of substances other than those prescribed or required for medical reasons: No Currently Displaying Signs/Symptoms of Drug Intoxication Withdrawal: No Any prior treatment program specific to substance use: Yes Have you been hit, kicked, punched, or otherwise hurt by someone within the past year? If so, by whom?: No Do you feel safe in your current relationship?: No Is there a partner from a previous relationship who is making you feel unsafe now?: No Are you made to feel afraid or neglected: No Advance Directives: No Advance Directives Information Provided: Yes Advance Directives on File: No Do you have thoughts of harming others: None Do you have a plan to hurt others: No Plan Meds Allergies Allergy/AdvReac Type Severity Reaction Status Date / Time aspirin [ASPIRIN] Allergy Unknown RASH Unverified 08/17/21 13:44 ibuprofen Allergy Unknown nausea and Verified 08/17/21 13:44 vomiting Active Medications: Current Medications Albuterol/Ipratropium (Albuterol/Iprat 2.5/0.5mg 3 Ml Ampul.Neb) 3 ml INHALE Q6H PRN PRN Reason: Shortness of Breath/Wheezing Folic Acid (Folic Acid 1 Mg Tablet) 1 mg PO DAILY THAI Heparin Sodium (Porcine) (Heparin Sodium,Porcine 5,000 Unit/Ml Vial) 4,300 unit 40 unit/kg (4300 unit) IVPUSH PROTOCOL BOLUS PRN; Protocol PRN Reason: 40 unit/kg - Heparin Protocol Heparin Sodium (Porcine) (Heparin Sodium,Porcine 5,000 Unit/Ml Vial) 8,500 unit 80 unit/kg (8500 unit) IVPUSH PROTOCOL BOLUS PRN; Protocol PRN Reason: 80 unit/kg - Heparin Protocol Last Admin: 09/29/21 03:07 Dose: 8,500 unit Documented by: Azithromycin 500 mg/ Sodium (Chloride) 250 mls @ 125 mls/hr IV Q24H [facility] Last Infusion: 09/28/21 18:35 Dose: Infused Documented by: Piperacillin Sod/Tazobactam (Sod 3.375 gm/ Sodium Chloride) 50 mls @ 100 mls/hr IV Q6H [facility] Last Infusion: 09/28/21 23:23 Dose: Infused Documented by: Norepinephrine Bitartrate (Levophed) 8 mg in 250 mls @ 0 mls/hr IVCONT .Q0M [facility]; Protocol Last Admin: 09/29/21 03:01 Dose: 0.1 mcg/kg/min, 19.99 mls/hr Documented by: Propofol (Diprivan) 1,000 mg in 100 mls @ 0 mls/hr IVCONT .Q0M [facility]; Protocol Last Titration: 09/29/21 03:04 Dose: 20 mcg/kg/min, 12.79 mls/hr Documented by: Heparin Sodium/Sodium Chloride () 25,000 unit in 250 mls @ 0 mls/hr IVCONT .Q0M [facility]; Protocol Insulin Human Lispro (Insulin Lispro 100 Unit/Ml 3 Ml Vial) 0 unit SUBCUT QIDACHS [facility]; Protocol Last Admin: 09/28/21 20:34 Dose: Not Given Documented by: Omeprazole (Omeprazole 40 Mg Capsule.Dr) 40 mg PO DAILY@0630 THAI Ondansetron HCl (Ondansetron Hcl 4 Mg/2 Ml Vial) 4 mg IVPUSH Q8H PRN PRN Reason: Nausea and Vomiting Pharmacy Consult (Consult Rx Perform Med Rec) 1 each MISCELLANE ONCE PRN PRN Reason: Consult order Pharmacy Consult (Consult Rx Etoh Phenob Po Dose) 1 each MISCELLANE ONCE PRN; Protocol PRN Reason: Consult order Sodium Chloride (0.9 % Sodium Chloride Flush 3 Ml Syringe) 3 ml IVFLUSH QSHIFT [facility] Last Admin: 09/28/21 20:31 Dose: 3 ml Documented by: Thiamine HCl (Thiamine Hcl 100 Mg Tablet) 100 mg OG-TUBE DAILY [facility] Home Medications Medication Instructions Recorded Confirmed Last Taken Type folic acid 1 mg tablet 1 mg PO DAILY 06/18/21 09/28/21 Unknown History lisinopril 20 mg tablet 20 mg PO DAILY 06/18/21 09/28/21 Unknown History metformin 850 mg tablet 850 mg PO BIDWM 06/18/21 09/28/21 Unknown History spironolactone 50 mg tablet 50 mg PO DAILY 06/18/21 09/28/21 Unknown History thiamine HCl (vitamin B1) 100 mg 100 mg PO DAILY 06/18/21 09/28/21 Unknown History tablet carvedilol 3.125 mg tablet 1 tab PO BID 09/28/21 09/28/21 Unknown History furosemide 20 mg tablet 1 tab PO DAILY 09/28/21 09/28/21 Unknown History omeprazole 40 mg capsule,delayed 40 mg PO DAILY@0630 09/28/21 09/28/21 Unknown History release prazosin 1 mg capsule 1 cap PO BEDTIME PRN 09/28/21 09/28/21 Unknown History Physical Exam Vital Signs: Vital Signs: Last Vital Signs Temp 96.0 F L 09/28/21 23:18 Pulse 70 09/29/21 03:02 Resp 22 H 09/29/21 03:02 BP 96/60 09/29/21 03:02 Pulse Ox 93 09/29/21 03:02 Oxygen Flow Rate 4 09/28/21 11:25 BMI result Body Mass Index 41.6 Results Labs CBC & Chem 7: 09/29/21 02:38 09/29/21 02:38 Labs: Short CBC 09/28/21 09/29/21 Range/Units 11:46 02:38 WBC 30.8 H* 36.6 H* (4.8-10.8) X10*3/uL Hgb 11.7 L 12.6 L (14.0-18.0) g/dl Hct 35.8 L 41.4 L (42.0-52.0) % Plt Count 201 215 (160-400) X10*3/uL BMP 09/28/21 09/29/21 11:46 02:38 Sodium 132 L 135 Potassium 4.9 5.5 H Chloride 95 L 96 Carbon Dioxide 29 20 L BUN 31 H 57 H D Creatinine 1.69 H 3.47 H Calcium 9.7 12.3 H D Cardiac Enzymes 09/29/21 Range/Units 02:38 Total Creatine Kinase 86 (38-174) U/L Liver Function 09/28/21 09/29/21 Range/Units 11:46 02:38 Total Bilirubin 2.6 H 2.3 H (0.0-1.0) mg/dL Direct Bilirubin 1.6 H (0.0-0.5) mg/dL AST 21 252 H (5-37) U/L ALT 18 145 H (0-40) U/L Alkaline Phosphatase 93 D 95 (39-117) U/L Albumin 3.3 L 3.1 L (3.5-5.0) g/dL
--- NOTE | 2021-09-29 03:14 | PM.EVENT ---
Event Note Date of Service: 09/29/21 Event Note: Patient who was admitted yesterday afternoon with complaints of abdominal bloating and coughing who has a history of diabetes, hypertension, morbid obesity, obstructive sleep apnea and a alcohol abuse history had been admitted to the floor with a diagnosis of sepsis in the setting of community-acquired pneumonia in treated with Rocephin; Zithromax later switched to Zosyn and Zithromax, at the time he had been given fluids, it was mentioned that nephrotoxins would be removed as he had mild acute kidney injury on chronic kidney disease but Zestril and spironolactone were continued, patient also receive 1 dose of Lasix for was thought the patient may have slight pulmonary congestion. A rapid response was initially called at? 0150 am? it quickly develop into a code blue to which I assisted. ?Reportedly patient had become diaphoretic, bradycardic and subsequently had a cardiac arrest. ?The code was run between the hospitalist and myself; ?on arrival the patient was asystolic and without a pulse; CPR was started, I placed pacer pads and ordered epinephrine, blood sugar was in the 160s, labs were reviewed by me, the patient appeared to have a high white count, acute kidney injury and mild elevation of liver function.? Reportedly patient had gotten phenobarbital due to alcohol withdrawal related symptoms. Code was run affectively, multiple rounds of epinephrine, chest compressions, bicarbonate, calcium gluconate was given until a ROSC was obtained approximately 20 minutes later. ?For a quick period of time, the patient became bradycardic, atropine 1 mg was given, ?An EKG obtained during the code showed a new left bundle branch block but apparently about 30 minutes to an hour before that, the patient had a new Mobitz II on record; with the assistance of emergency physician, the patient was intubated and we transferred the patient to ICU for post Cardiac Arrest Management. Case was discussed in detail with Dr. Busby. He is aware of all the above as well as the plan of care for this patient. Total critical care time during the code and transport 35 minutes ?
[2021-09-29 03:16] LABS: Phosphorus 10.5 mg/dL (2.7-4.5)
[2021-09-29 03:21] LABS: Free T4 (Free Thyroxine) 0.92 ng/dL (0.71-1.85)
[2021-09-29 03:27] LABS: INTERNATIONAL NORM RATIO 1.3 (0.9-1.1); Prothrombin Time 15.3 SEC (9.9-13.0)
--- NOTE | 2021-09-29 03:29 | P.PCNCC_ITS ---
Procedures Date of Service Date of Service: 09/29/21 Central Line Placement A quick time-out was made for clarification and proper patient identification, patient was positioned, landmarks were identified, US used to locate a large compressible IJ. The right neck was widely prepped and draped in a full sterile fashion. Ultrasound was used to locate again the right IJ, the vein was cannulated on the 1st pass with an 18 gauge thin needle, dark nonpulsatile blood return was obtained. The wire was threaded, a small incision was made at its base and dilator inserted. A triple-lumen central venous catheter was advanced into the vein up to the hub without problems, wired was removed. Ports had good blood return and flushed x3. The catheter was secured with 3 sutures at 3 sites, a Biopatch and dry sterile dressing were applied.Post procedure chest x- ray showed the line to be in good position without pneumothorax. No bleeding or complications noted.: Consent for Procedure: Emergent-no informed consent obtained Time out performed: Yes Sterile Technique Used: Yes Patient placed on monitor/pulse ox: Yes prep: mask, gown and gloves Central line prep: Chlorhexidine scrub Ultrasound used for placement: Yes Central line lumen inserted: triple Post procedure: sutured in place, good blood return, all ports aspirated, flushed, capped and sterile dressing applied Post procedure x-ray: tip of catheter in good position and no pneumothorax seen Patient tolerated procedure: well and no complications Complications: none
--- NOTE | 2021-09-29 03:41 | P.CONCC_ITS ---
History of Present Illness Data of Consult Service Date: 09/29/21 Requesting physician: Gerald Martinez Primary Care Provider: Nelly Bach MD HPI Reason for consult: Cardio Pulmonary Arrest HPI:? 61-year-old patient with underlying history of hypertension, hyperlipidemia, diabetes, morbid obesity, obstructive sleep apnea, GERD, constipation, alcohol and cocaine abuse had been admitted to the hospital 09/28/2021 after complaining of abdominal discomfort, of.? Patient was diagnosed with acute sepsis in the setting of community-acquired pneumonia, at the time [place] [address], H&H of 11 and 35 with 25% bandemia.? Electrolytes were normal, renal function showed a creatinine of 1.69 with his baseline is 1.3. ?respectively treated with IV fluids, started on Rocephin and ?Zithromax later switched to Zosyn and Zithromax.? Given the patient started to show signs of withdrawal, the patient was started on phenobarbital. ?At some point last night was communicated to the hospitalist the patient had some bradycardia and an EKG showed Mobitz II. A rapid response was initially called at? 0150 am? it quickly develop into a code blue to which I assisted. ?Reportedly patient had become diaphoretic, bradycardic and subsequently had a cardiac arrest. ?The code was run between the hospitalist and myself; ?on arrival the patient was asystolic and without a pulse; CPR was started, I placed pacer pads and ordered epinephrine, blood sugar was in the 160s, labs were reviewed by me, the patient appeared to have a high white count, acute kidney injury and mild elevation of liver function.? Reportedly patient had gotten phenobarbital due to alcohol withdrawal related symptoms. Code was run affectively, multiple rounds of epinephrine, chest compressions, bicarbonate, calcium gluconate was given until a ROSC was obtained approximately 20 minutes later. ?For a quick period of time the patient became bradycardic, atropine 1 mg was given, ?An EKG obtained during the code showed a new left bundle branch block but apparently about 30 minutes to an hour before that, the patient had a new Mobitz II on record; with the assistance of emergency physician, the patient was intubated and we transferred the patient to ICU for post Cardiac Arrest Management. In the ICU he quickly became hypotensive, was started him on Levophed and kept him sedated with propofol. Watkins catheter was placed shown very little dark urine. ROS:? UNABLE TO OBTAIN PATIENT INTUBATED Past Medical History:? As above Past Surgical History: unknown Family history:? Per chart Mom had Cancer and DM Social History: ?The patient's friend was called Ibis Loza (girlfriend, she lives with him x 5 years). Patient has a son who lives in [place] ([place]) but no contact is known. Also has brothers but will try to get in contact. She is not the HCP and does know who is the HCP. She reports the patient uses cocaine and drinks Rum daily.?? 0425 am Talked to pt's sister Joy Britton who lives in [place] and is aware of the clinical scenario, but she is not the HCP either. Contact number [phone]; a dvises the pts aunt Heavenly Wheeler will come to see the pt. CODE STATUS:? Full code Allergies:? ASA and NSAIDS Home Medications:? see Med Rec PHYSICAL EXAM: VS: blood pressure 79/49? , heart rate ?59 , Temp 96.6 VENT SETTINGS : ?AC 22; 400; 6; 100% ? General:? Sedated on a ventilator ? Skin:? Spider veins; Intact, no lesions, edema, erythema, clubbing or cyanosis.? No ulcers. ? HEENT:? Head is normocephalic, wide neck. ? Cardiac:? Clear S1-S2, no murmurs rubs or gallops. ? Pulmonary:? Coarse lung sounds at the right base with positive rhonchi, fine crackles at the bases. ? Abdomen: ?Large, somewhat hard, positive bowel sounds in all 4 quadrants, unable to determine tenderness.? No caput medusa.? No masses. ? Musculoskeletal: ?No cogwheeling noted on passive range of motion, 1+ pitting edema of the lower extremities L > R to mid tibia ? Neurologic:? As above otherwise unable to assess ? Vascular:? 1+ pulses upper and lower extremities distally. ?3-4 second capillary refill of the fingers and toes bilaterally upper and lower extremities. SIGNIFICANT LABORATORY DATA:? As above, new data will be obtained REVIEW OF IMAGES: ?Chest x-ray shows worsening bilateral infiltrates more on the right base, endotracheal tube appears a little too close to the jian, will pull it back about 1 cm, right central line appears to be in good place as well as the orogastric tube.? Final confirmation from the radiologist's is awaited.? No pneumothorax noted. Abdominal ultrasound IMPRESSION: Very limited exam. No ascites. Echogenic liver and changes of mild cirrhosis. Chest x-ray on admission IMPRESSION: Pleural thickening versus small bilateral pleural effusions are similar to the 2020 study likely representing chronic changes. Mild congestion cannot be excluded. Chest CT without contrast IMPRESSION: 1. Bilateral consolidation, significantly most pronounced in the right lower lobe suggesting atelectasis and/or infiltrates. This is much more pronounced compared to radiographs from today. Short-term follow-up with PA and lateral views of the chest are recommended as clinically indicated to assess for change. 2. Mild interval enlargement of previously seen enlarged right paratracheal lymph nodes are nonspecific, but may be reactive to this process. 3. Hepatomegaly and cirrhosis with increased caudate lobe hypertrophy. Mildly enlarged gastrohepatic lymph nodes have not significant change. 4. Moderate bilateral gynecomastia was not seen previously. EKG REVIEW: ?In comparison to EKG from admission, pulse code EKG shows a new l eft bundle branch block with evidence of right bundle-branch block and wide QRS. ASSESSMENT AND PLAN: 1. Post cardio/respiratory arrest 2. Hypoxic respiratory failure with hypercapnic state 3. Acute Respiratory acidosis 4. Lactic acidosis likely due to above and underlying sepsis 5. Community-acquired pneumonia R lung > left and worsening infiltrates 6. History of alcoholism with evidence of withdrawal on the floor 7. History of cocaine abuse 8. Acute kidney injury 9. Borderline hyperkalemia due to ZANE 10. Elevated D-dimer lightly multifactorial but at this point I cannot rule out the possibility of PE 11. Transaminitis due to alcohol abuse 12. Suspected hepatic encephalopathy with ammonia level of 62 13. Hypoalbuminemia 14. Proteinuria 15. Hyperphosphatemia due to ZANE 16. Leg asymetry and mild edema r/o DVT Patient's transferred to the ICU, I will place a central line, star cooling protocol, aspirin cannot be given for patient has a listed allergy, I will start a heparin drip for it there is suspicion of underlying cardiac insult versus PE, will check full set of laboratories, continue with ventilation with a high respiratory rate, repeat lactic acid, even though the patient got some Lasix initially for there was a concern for pulmonary congestion, I do believe the patient is dry, I will give him fluids 30mg /kg, order sputum cx and gram stain, UA tox, Levophed ; propofol, discontinue nephrotoxins.? Patient would benefit from an echo in the morning as well as a nuclear medicine study to rule out PE.?US lower ext r/o DVT. Lactulose and albumin will be given. ?Will recheck laboratories.? I did speak to patient for friend as described from the social history who will try to contact patient's son or brothers but at this point she does not have their information. GI PROPHYLAXIS:? Omeprazole DVT PROPHYLAXIS:? On heparin drip per ACS protocol Critical care time used for critical evaluation of this patient, diagnosis, treatment and coordination of care, review her records and documentation TOTAL CRITICAL CARE TIME 150 MIN; separate from procedures and any other code assistance. Patient's care was discussed in detail with Dr. Busby.? He is aware of all the above as well as the plan of care for this patient. ? [facility] Past Medical History Medical History (Updated 09/28/21 @ 15:54 by Shania Navarro MD) Chronic kidney disease Congestive heart failure Diabetes DARRIAN (obstructive sleep apnea) Family History Family History Mother Cancer Diabetes Social History Social History Household Members: None Housing: House Do you presently have visiting nurse or other home services: No Patient Tobacco Use Status: Never used Tobacco e-Cigarette/Vaping Use: Never Used Use of substances other than those prescribed or required for medical reasons: No Currently Displaying Signs/Symptoms of Drug Intoxication Withdrawal: No Any prior treatment program specific to substance use: Yes Have you been hit, kicked, punched, or otherwise hurt by someone within the past year? If so, by whom?: No Do you feel safe in your current relationship?: No Is there a partner from a previous relationship who is making you feel unsafe now?: No Are you made to feel afraid or neglected: No Advance Directives: No Advance Directives Information Provided: Yes Advance Directives on File: No Do you have thoughts of harming others: None Do you have a plan to hurt others: No Plan service: No Current occupational status: disabled Meds Allergies Allergy/AdvReac Type Severity Reaction Status Date / Time aspirin [ASPIRIN] Allergy Unknown RASH Unverified 08/17/21 13:44 ibuprofen Allergy Unknown nausea and Verified 08/17/21 13:44 vomiting Active Medications: Current Medications Albuterol/Ipratropium (Albuterol/Iprat 2.5/0.5mg 3 Ml Ampul.Neb) 3 ml INHALE Q6H PRN PRN Reason: Shortness of Breath/Wheezing Folic Acid (Folic Acid 1 Mg Tablet) 1 mg PO DAILY [facility] Heparin Sodium (Porcine) (Heparin Sodium,Porcine 5,000 Unit/Ml Vial) 4,300 unit 40 unit/kg (4300 unit) IVPUSH PROTOCOL BOLUS PRN; Protocol PRN Reason: 40 unit/kg - Heparin Protocol Heparin Sodium (Porcine) (Heparin Sodium,Porcine 5,000 Unit/Ml Vial) 8,500 unit 80 unit/kg (8500 unit) IVPUSH PROTOCOL BOLUS PRN; Protocol PRN Reason: 80 unit/kg - Heparin Protocol Last Admin: 09/29/21 03:07 Dose: 8,500 unit Documented by: Azithromycin 500 mg/ Sodium (Chloride) 250 mls @ 125 mls/hr IV Q24H [facility] Last Infusion: 09/28/21 18:35 Dose: Infused Documented by: Piperacillin Sod/Tazobactam (Sod 3.375 gm/ Sodium Chloride) 50 mls @ 100 mls/hr IV Q6H [facility] Last Infusion: 09/28/21 23:23 Dose: Infused Documented by: Norepinephrine Bitartrate (Levophed) 8 mg in 250 mls @ 0 mls/hr IVCONT .Q0M THAI; Protocol Last Admin: 09/29/21 03:01 Dose: 0.1 mcg/kg/min, 19.99 mls/hr Documented by: Propofol (Diprivan) 1,000 mg in 100 mls @ 0 mls/hr IVCONT .Q0M THAI; Protocol Last Titration: 09/29/21 03:04 Dose: 20 mcg/kg/min, 12.79 mls/hr Documented by: Heparin Sodium/Sodium Chloride () 25,000 unit in 250 mls @ 0 mls/hr IVCONT .Q0M THAI; Protocol Last Admin: 09/29/21 02:46 Dose: 14 units/kg/hr, 14.92 mls/hr Documented by: Insulin Human Lispro (Insulin Lispro 100 Unit/Ml 3 Ml Vial) 0 unit SUBCUT QIDACHS [facility]; Protocol Last Admin: 09/28/21 20:34 Dose: Not Given Documented by: Omeprazole (Omeprazole 40 Mg Capsule.Dr) 40 mg PO DAILY@0630 [facility] Ondansetron HCl (Ondansetron Hcl 4 Mg/2 Ml Vial) 4 mg IVPUSH Q8H PRN PRN Reason: Nausea and Vomiting Pharmacy Consult (Consult Rx Perform Med Rec) 1 each MISCELLANE ONCE PRN PRN Reason: Consult order Pharmacy Consult (Consult Rx Etoh Phenob Po Dose) 1 each MISCELLANE ONCE PRN; Protocol PRN Reason: Consult order Sodium Chloride (0.9 % Sodium Chloride Flush 3 Ml Syringe) [address] [facility] Last Admin: 09/28/21 20:31 Dose: 3 ml Documented by: Thiamine HCl (Thiamine Hcl 100 Mg Tablet) 100 mg OG-TUBE DAILY [facility] Home Medications Medication Instructions Recorded Confirmed Last Taken Type folic acid 1 mg tablet 1 mg PO DAILY 06/18/21 09/28/21 Unknown History lisinopril 20 mg tablet 20 mg PO DAILY 06/18/21 09/28/21 Unknown History metformin 850 mg tablet 850 mg PO BIDWM 06/18/21 09/28/21 Unknown History spironolactone 50 mg tablet 50 mg PO DAILY 06/18/21 09/28/21 Unknown History thiamine HCl (vitamin B1) 100 mg 100 mg PO DAILY 06/18/21 09/28/21 Unknown Histo ry tablet carvedilol 3.125 mg tablet 1 tab PO BID 09/28/21 09/28/21 Unknown History furosemide 20 mg tablet 1 tab PO DAILY 09/28/21 09/28/21 Unknown History omeprazole 40 mg capsule,delayed 40 mg PO DAILY@0630 09/28/21 09/28/21 Unknown History release prazosin 1 mg capsule 1 cap PO BEDTIME PRN 09/28/21 09/28/21 Unknown History Physical Exam Vital Signs: Vital Signs: Last Vital Signs Temp 96.0 F L 09/28/21 23:18 Pulse 70 09/29/21 03:02 Resp 22 H 09/29/21 03:02 BP 96/60 09/29/21 03:02 Pulse Ox 93 09/29/21 03:02 Oxygen Flow Rate 4 09/28/21 11:25 BMI result Body Mass Index 41.6 Results Labs CBC & Chem 7: 09/29/21 05:10 09/29/21 11:50 Labs: Short CBC 09/28/21 09/29/21 Range/Units 11:46 02:38 WBC 30.8 H* 36.6 H* (4.8-10.8) X10*3/uL Hgb 11.7 L 12.6 L (14.0-18.0) g/dl Hct 35.8 L 41.4 L (42.0-52.0) % Plt Count 201 215 (160-400) X10*3/uL BMP 09/28/21 09/29/21 11:46 02:38 Sodium 132 L 135 Potassium 4.9 5.5 H Chloride 95 L 96 Carbon Dioxide 29 20 L BUN 31 H 57 H D Creatinine 1.69 H 3.47 H Calcium 9.7 12.3 H D Cardiac Enzymes 09/29/21 Range/Units 02:38 Total Creatine Kinase 86 (38-174) U/L Liver Function 09/28/21 09/29/21 Range/Units 11:46 02:38 Total Bilirubin 2.6 H 2.3 H (0.0-1.0) mg/dL Direct Bilirubin 1.6 H (0.0-0.5) mg/dL AST 21 252 H (5-37) U/L ALT 18 145 H (0-40) U/L Alkaline Phosphatase 93 D 95 (39-117) U/L Albumin 3.3 L 3.1 L (3.5-5.0) g/dL
[2021-09-29 03:45] LABS: Lactic Acid 9.4 mmol/L (0.5-2.0)
[2021-09-29 03:47] LABS: Ammonia 62 umol/L (13-55)
[2021-09-29 03:54] LABS: Appearance Urine CLEAR; Color Urine ORANGE; Glucose Urine UA NEG (NEG); Leukocyte Esterase Urine NEG (NEG); Nitrite Urine POS (NEG); Specific Gravity - Urine >= 1.030 (1.005-1.025); UACC Culture Trigger YES; Urine Blood NEG (NEG); Urine Ketones 5 MG/DL (NEG); Urine Protein 1+ MG/DL (NEG-TRACE)
[2021-09-29 03:58] LABS: Bacteria Urine 1+ /LPF; Hyaline Casts Urine 0-2 /LPF; Mucus Urine 1+ /LPF; RBC Urine 0 /HPF (0); Squamous Epithelial Cell Urine 1+ /LPF; WBC Urine 0 /HPF (0-4)
[2021-09-29 04:11] LABS: Amphetamine Screen Urine Not Detected (Not Detect); Barbiturates, Urine Not Detected (Not Detect); Benzodiazepines Screen Urine Not Detected (Not Detect); Cannabinoid Screen Urine Not Detected (Not Detect); Cocaine Screen Urine Not Detected (Not Detect); Fentanyl, urine POSITIVE (Not Detect); Opiate Screen Urine POSITIVE (Not Detect); Phencyclidine Screen Urine Not Detected (Not Detect)
[2021-09-29 04:12] LABS: Partial Thromboplastin Time 34.1 SEC (24.1-38.0)
[2021-09-29] MEDS: Piperacillin Sodium/Tazobactam 3.375 GM in 0.9 % Sodium Chloride 50 ML IV ×2 (04:36→10:59)
[2021-09-29 04:44] LABS: Reflex Lactate? Lactic Acid Added
[2021-09-29] MEDS: Albumin Human 25 % 100 ML IV ×2 (05:20→06:29)
[2021-09-29 05:22] LABS: VBG Base Excess -2.5 mmol/L; VBG HCO3 23 mmol/L (22-26); VBG pCO2 46 mmHg; VBG pH 7.31 (7.32-7.43); VBG pO2 51 mmHg
[2021-09-29 05:33] LABS: Hematocrit 34.1 % (42.0-52.0); Hemoglobin 10.8 g/dl (14.0-18.0); Mean Corpuscular HGB Conc 31.7 g/dl (31.0-36.0); Mean Corpuscular Hemoglobin 29.9 pg (27.0-33.0); Mean Corpuscular Volume 94.5 fL (80.0-98.0); Mean Platelet Volume 10.1 fL (9.4-12.4); Platelet Count 189 X10*3/uL (160-400); Red Blood Count 3.61 X10*6/uL (4.60-5.80); Red Cell Distribution Width 14.8 % (11.0-16.0); White Blood Count 26.5 X10*3/uL (4.8-10.8)
[2021-09-29 05:45] LABS: ~Lactic Acid-LAB USE ONLY 4.6 mmol/L (0.5-2.0)
[2021-09-29 05:51] LABS: Anion Gap 18 (12-20); Blood Urea Nitrogen 59 mg/dL (9-16); Calcium 10.3 mg/dL (8.4-10.2); Carbon Dioxide 24 mmol/L (22-29); Chloride 96 mmol/L (96-108); Cholesterol 139 mg/dL; Creatinine Clr Calc Pharmacy 26.7; Estimated Glomerular Filt Rate 20; Glucose Random 180 mg/dL (60-115); HDL Cholesterol 34 mg/dL; LDL Cholesterol Calculated 86 mg/dl; Phosphorus 6.8 mg/dL (2.7-4.5); Potassium 4.6 mmol/L (3.3-5.1); Sodium 133 mmol/L (135-145); Triglycerides 96 mg/dL
--- NOTE | 2021-09-29 05:55 | PC.NURSE ---
RECEIVED FROM [facility] [place] APPROX 02:30 POST CARDIAC ARREST....INTUBATED PRIOR TO TRANSFER.....REMAINS TUBED/VENTED...PROPOFOL DRIP AND RORCURONIUM PER AUG UPON TRANSFER...TLC INSERTED BY ICU PA RIGHT JUGULAR..OG-TUBE INSERTED...CXR DONE AND REVIEWED...#8.0 ETT RETRACTED 2CM TO 25CM AFTER XRAY...MULTIPLE VENT CHANGES BY RT/PA...CURRENTLY AC 18/TV 400/FIO2 80%/PEEP 6CM...SYNCHRONOUS ON VENT..SAO2 92%..REMAINS WITH FROTHY PINK SPUTUM....LR 3197ml PER PA AND ALBUMEN 25 GRAMS X2...LEVOPHED DRIP AND HEPARIN DRIP PER AUG...PTT-HD DUE 9AM...80ml DARK CHARI URINE UPON INSERTION OF HIDALGO DESPITE PRIOR RECEIPT OF LASIX...URINE SLIDE FASTENERS INSPECTOR YELLOW POST IV BOLUS...HYPOTHERMIA PROTOCOL INITIATED...TARGET GOAL 92 DEGREES F PER ICU PA..NSR/S.EFRAIN HR 58-62 BORDERLINE 1ST-DEGREE BLOCK...INCONTINENT BROWN STOOL POST-TRANSFER..COOLING BLANKET MAINTAINED..CURRENT CORE TEMP 93.7 DEGREES AND DECLINING
[2021-09-29 05:56] LABS: Troponin-I High Sensitivity 83.2 ng/L (<3.5-35.0)
[2021-09-29] MEDS: propofoL 1,000 MG/100 ML VIAL 6.4 MG IVCONT ×2 (06:27→17:17)
[2021-09-29 07:29] LABS: Reflex Lactate? 2 Y
[2021-09-29] MEDS: Thiamine HCL 100 MG TABLET OG-TUBE (07:45)
[2021-09-29] MEDS: 0.9 % Sodium Chloride Flush 3 ML SYRINGE IVFLUSH ×2 (07:45→17:09)
[2021-09-29] MEDS: Lactulose 20 GM/30 ML SOLUTION 30 GM PO ×3 (07:45→21:12)
[2021-09-29] MEDS: Folic Acid 1 MG TABLET PO (07:45)
[2021-09-29] MEDS: Atropine Sulfate 1 MG/10 ML SYRINGE IVPUSH (07:50)
[2021-09-29 07:55] LABS: ~Lactic Acid-LAB USE ONLY 2.7 mmol/L (0.5-2.0)
[2021-09-29] MEDS: EPINEPHrine 5 MG in Dextrose 5 % 250 ML 32.59 MG IVCONT (08:20)
[2021-09-29] MEDS: Albuterol/Iprat 2.5/0.5MG 3 ML AMPUL.NEB INHALE ×4 (08:35→20:41)
[2021-09-29] MEDS: Cisatracurium Besylate 20 MG/10 ML VIAL 12 MG IVPUSH (08:45)
[2021-09-29] MEDS: fentaNYL citrate/NS 1,000 MCG/100 ML PLAST..BAG 5 MCG IVCONT (08:50)
--- NOTE | 2021-09-29 09:32 | P.PNCC_ITS ---
Subjective Subjective Date of Service: 09/29/21 Interval History: Mr. Britton was transferred to ICU early this morning after cardiac arrest on IMC. The patient is a 61-year-old male with a past medical history of morbid obesity (5-3?, 106kg), DARRIAN (basline serum bicarb 30), CKD (baseline about 21/1.3), congestive heart failure, diabetes on metformin, irritable bowel syndrome, GERD, alcohol abuse.? Family told me that the patient has also been on methadone maint x 2 years. ECHOCARDIOGRAM 05/09/2021:? Normal LV cavity size w mildly increased wall thickness.? LV systolic function is normal, EF 66% w no RWMA and normal diastolic function.? Normal RV cavity size and systolic function.? No obvious valvular pathology.? IVC was mildly dilated with < 50% insp collapse. The patient lives with his common law of 9 years.? Doesn?t work.? Fully independent, drives.? He?s chronically SOB. The patient was BIBA to the ED yesterday morning from his primary care office at [facility] reporting cough and shortness of breath for one week that had become progressively worse.? In addition he?d been having chest pain for two days described as sub sternal, worse with deep inspiration or cough.? Associated nausea but no vomiting.? Denies fever, chills, nasal congestion, vomiting, abdominal pain, dysuria, diarrhea, constipation, lower extremity edema, weakness, falls.? Upon EMS arrival at the scene, was noted to be hypoxemic with room air Sat high 80s.? On 4 L, SpO2 was 92-94%. In the ED, HR 57, BP 101/59, RR 20, Sat 90% on 4LNC, temp 101.2?.? He was ill appearing and toxic.? Labs notable for white count 30, Hb , BUN/creatinine 31/1.6, sodium 132, K4.9, bicarb 29, gluc 160, tbili 2.6, normal transaminases, alb 3.3 (baseline normal), normal trop, BNP 1289, lactate 2.8. EKG showed sinus rhythm with first-degree AV block with no ischemic changes.? Chest x-ray showed a widened mediastinum and cardiac silhouette, with basilar pleural thickening on both sides.? Noncontrast chest CT showed a right lower lobe consolidation with air bronchograms, and also a small area of consolidation with air bronchograms in the superior left lower lobe.? In the upper abdomen, hepatic enlargement with surface nodularity was noted, suggestive of cirrhosis.? There is also nonspecific right paratracheal lymph node enlargement.? Abdominal ultrasound showed no ascites; the liver was echogenic with changes suggestive of mild cirrhosis. The patient was given ceftriaxone 1 g and 30 cc/kilos of normal saline.? Doxycycline was added after the chest CT.? The patient was admitted to Medicine.? Antibiotics were changed to Zosyn and Zithromax for pneumonia.? The patient was also started on CIWA and phenobarbital protocol because of high risk for ROMARIO.? The lactic acid came down to 2.1, but then at 18:30 was back up to 2 .5.? The patient was seen by Dr. Martinez, and was given more fluids. According to the [employer] vital signs record, in the evening last night, heart rate was 50s-60s, respiratory rate 20, blood pressure 80 1-101 systolic, sat 90% on 4 L nasal cannula. ?At 2318 last night, the patient was noted to be bradycardic, an EKG was obtained which showed sinus bradycardia with first-de gree AV block.? Patient at the time was lethargic but arousable,? sat was recorded as 87% on 4 L nasal cannula. About 0150 this morning, osiris alvarado was called after he became bradycardic and went into cardiac arrest.? First rhythm was asystole.? Had 4 rounds of epinephrine.? ROSC at about 14-16 minutes.? Throughout the cardiac arrest the patient was in asystole.? The patient was transferred to the ICU for further management.? A central line was placed, the patient appeared clinically dry and was given fluids and Levophed.? Therapeutic hypothermia was applied.? There was a new LBBB on EKG.? Heparin was started. On my exam this morning, the patient is unresponsive on propofol at 10ug (given bec the patient was coughing on the ETT and dysynchronus.? He had atropine about half an hour ago for bradycardia, HR 49.? Epinephrine gtt was started at 0.1ug.? HR now 71, BP 140/76.? On AC 18/400/100%/+5, Sat is 94%.? Temp 93.0?.? Pupils are blown after the atropine.? No JVD (he has no neck).? Chest shows diffuse exp wheeze w mildly prolonged exp phase.? Unable to hear heart tones.? Abdomen is obese and fairly firm, but not hard; IAP is 15mm.? No peripheral edema.? Neuro:? No dolls? eyes, no corneals, no gag.? Decorticate posturing to painful stim.? Occ myoclonus. Now making good urine that is water colored. LABORATORY DATA:? Below.? Notably, BUN creatinine this morning were down to 59/3.2 (from 57/3.4 immediately after the cardiac arrest).? Last lactate down to 2.7, from 9.4.? Phosphorus is 6.8.? Troponin was 83.? ABG on the above setting showed 7.33/44/83/-2. IMPRESSION: 1. Morbid obesity with DARRIAN. 2. CKD (baseline about 21/1.3) 3. Reported h/o congestive heart failure, although the echo does not support that. 4. I suspect he has RHF, given his IVC findings. 5. Diabetes on metformin. 6. Admitted with CAP. 7. S/p cardiac arrest, with 14-16 min of asystole w CPR. 8. Anoxic encephalopathy. 9. Deeply comatose at present, with complete loss of cortical fxn, and loss of some brainstem fxn. 10. Acute respiratory failure. 11. ZANE. 12. R/o PE, DVT.? Preliminary looks are negative on both scans. 13. Repeat EKG shows no ischemic changes.? ACS is unlikely.? Most likely cause (statistically) was respiratory. We'll d/c the heparin. I placed an arterial line for hemodynamic and respiratory monitoring (separate procedure). ?Very poor prognosis.? He may well progress to brain .? My suspicion is that a CT scan two days from now will show diffuse cerebral edema. Had multiple discussions with family. I spoke to the family in conference, including the daughter Yoselyn who speaks Albanian, along with the patient's , Ibis and the patient?s Aunt.? I indicated the poor likelihood of survival.? I told Yoselyn that whoever wants to see him before she he dies should come now.? For now we will continue full support.? Yoselyn was not comfortable with ?no CPR? status, therefore the patient will remain a full code.? No need for therapeutic hypothermia.? Will warm him to 96 degrees, and then we will just make sure we keep him normothermic. I wrote Yoselyn a letter to facilitate travel of her family to see the patient. Critical care time (excluding procedures): ?2.5+ hours. Critical Care Time (minutes): 150 Physical Exam Vital Signs: Vital Signs: Last Vital Signs Temp 92.5 F L 09/29/21 09:00 Pulse 74 09/29/21 09:00 Resp 18 09/29/21 09:00 BP 142/71 H 09/29/21 09:13 Pulse Ox 96 09/29/21 09:00 Oxygen Flow Rate 4 09/28/21 11:25 BMI result Body Mass Index 41.5 Objective Data Labs CBC & Chem 7: 09/29/21 05:10 09/29/21 11:50 Labs: Laboratory Results - last 24 hr 09/28/21 09/28/21 09/28/21 11:46 11:46 11:46 WBC 30.8 H* RBC 3.88 L Hgb 11.7 L Hct 35.8 L MCV 92.3 MCH 30.2 MCHC 32.7 RDW 14.7 Plt Count 201 MPV 9.6 Immature Gran % (Auto) Cancelled Neut % (Auto) Cancelled Lymph % (Auto) Cancelled Marion % (Auto) Cancelled Eos % (Auto) Cancelled Baso % (Auto) Cancelled Lymph # (Auto) Cancelled Marion # (Auto) Cancelled Eos # (Auto) Cancelled Baso # (Auto) Cancelled Abs Immat Gran (auto) Cancelled Absolute Neuts (auto) Cancelled Absolute Nucleated RBC 0.000 Nucleated RBC % (auto) 0.0 Neutrophils % (Manual) 64 Band Neutrophils % 25 H Lymphocytes % (Manual) 1 L Monocytes % (Manual) 6 Metamyelocytes % 4 Abs Neuts (Manual) 27.4 H Lymphocytes # (Manual) 0.3 L Monocytes # (Manual) 1.8 H Metamyelocytes # 1.2 Toxic Vacuolation PRESENT Dohle Bodies Platelet Estimate NORMAL Large Platelets Plt Morphology Comment NORMAL RBC Morphology NORMAL Polychromasia Macrocytosis PT INR APTT D-Dimer High Sensitivty VBG pH VBG pCO2 VBG pO2 VBG HCO3 VBG O2 Saturation VBG Base Excess Sodium 132 L Potassium 4.9 Chloride 95 L Carbon Dioxide 29 Anion Gap 13 BUN 31 H Creatinine 1.69 H Estim Creat Clear Calc 51.1 Estimated GFR 42 POC Glucose Random Glucose 160 H Lactic Acid Lactic Acid F/U @ 2Hr Lactic Acid F/U @ 4Hr Calcium 9.7 Phosphorus Magnesium Total Bilirubin 2.6 H Direct Bilirubin 1.6 H AST 21 ALT 18 Alkaline Phosphatase 93 D Ammonia Total Creatine Kinase Troponin I High Sens 13.7 B-Natriuretic Peptide 1289 H Total Protein 7.0 Albumin 3.3 L Triglycerides Cholesterol LDL Cholesterol, Calc HDL Cholesterol TSH Free T4 Urine Color Urine Appearance Urine pH Ur Specific [place] Urine Protein Urine Glucose (UA) Urine Ketones Urine Blood Urine Nitrite Ur Leukocyte Esterase Urine RBC Urine WBC Ur Squamous Epith Cells Urine Bacteria Hyaline Casts Urine Mucus Urine Opiates Screen Urine Fentanyl Screen Ur Barbiturates Screen Ur Phencyclidine Scrn Ur Amphetamines Screen U Benzodiazepines Scrn Urine Cocaine Screen U Marijuana (THC) Screen COVID-19 (SHERITA) COVID-19 Clin Com Influenza Type A (HIEN) Influenza Type B (HIEN) Influenza A & B Note 09/28/21 09/28/21 09/28/21 13:00 13:00 13:00 WBC RBC Hgb Hct MCV MCH MCHC RDW Plt Count MPV Immature Gran % (Auto) Neut % (Auto) Lymph % (Auto) Marion % (Auto) Eos % (Auto) Baso % (Auto) Lymph # (Auto) [place] # (Auto) Eos # (Auto) Baso # (Auto) Abs Immat Gran (auto) Absolute Neuts (auto) Absolute Nucleated RBC Nucleated RBC % (auto) Neutrophils % (Manual) Band Neutrophils % Lymphocytes % (Manual) Monocytes % (Manual) Metamyelocytes % Abs Neuts (Manual) Lymphocytes # (Manual) Monocytes # (Manual) Metamyelocytes # Toxic Vacuolation Dohle Bodies Platelet Estimate Large Platelets Plt Morphology Comment RBC Morphology Polychromasia Macrocytosis PT INR APTT D-Dimer High Sensitivty VBG pH VBG pCO2 VBG pO2 VBG HCO3 VBG O2 Saturation VBG Base Excess Sodium Potassium Chloride Carbon Dioxide Anion Gap BUN Creatinine Estim Creat Clear Calc Estimated GFR POC Glucose Random Glucose Lactic Acid 2.8 H* Lactic Acid F/U @ 2Hr Lactic Acid F/U @ 4Hr Calcium Phosphorus Magnesium Total Bilirubin Direct Bilirubin AST ALT Alkaline Phosphatase Ammonia Total Creatine Kinase Troponin I High Sens B-Natriuretic Peptide Total Protein Albumin Triglycerides Cholesterol LDL Cholesterol, Calc HDL Cholesterol TSH Free T4 Urine Color Urine Appearance Urine pH Ur Specific [place] Urine Protein Urine Glucose (UA) Urine Ketones Urine Blood Urine Nitrite Ur Leukocyte Esterase Urine RBC Urine WBC Ur Squamous Epith Cells Urine Bacteria Hyaline Casts Urine Mucus Urine Opiates Screen Urine Fentanyl Screen Ur Barbiturates Screen Ur Phencyclidine Scrn Ur Amphetamines Screen U Benzodiazepines Scrn Urine Cocaine Screen U Marijuana (THC) Screen COVID-19 (SHERITA) Negative COVID-19 Clin Com See Note Influenza Type A (HIEN) Negative Influenza Type B (HIEN) Negative Influenza A & B Note See Note 09/28/21 09/28/21 09/28/21 16:16 16:16 17:39 WBC RBC Hgb Hct MCV MCH MCHC RDW Plt Count MPV Immature Gran % (Auto) Neut % (Auto) Lymph % (Auto) Marion % (Auto) Eos % (Auto) Baso % (Auto) Lymph # (Auto) Marion # (Auto) Eos # (Auto) Baso # (Auto) Abs Immat Gran (auto) Absolute Neuts (auto) Absolute Nucleated RBC Nucleated RBC % (auto) Neutrophils % (Manual) Band Neutrophils % Lymphocytes % (Manual) Monocytes % (Manual) Metamyelocytes % Abs Neuts (Manual) Lymphocytes # (Manual) Monocytes # (Manual) Metamyelocytes # Toxic Vacuolation Dohle Bodies Platelet Estimate Large Platelets Plt Morphology Comment RBC Morphology Polychromasia Macrocytosis PT 16.0 H INR 1.4 H APTT D-Dimer High Sensitivty VBG pH VBG pCO2 VBG pO2 VBG HCO3 VBG O2 Saturation VBG Base Excess Sodium Potassium Chloride Carbon Dioxide Anion Gap BUN Creatinine Estim Creat Clear Calc Estimated GFR POC Glucose 111 Random Glucose Lactic Acid Lactic Acid F/U @ 2Hr 2.1 H* Lactic Acid F/U @ 4Hr Calcium Phosphorus Magnesium Total Bilirubin Direct Bilirubin AST ALT Alkaline Phosphatase Ammonia Total Creatine Kinase Troponin I High Sens B-Natriuretic Peptide Total Protein Albumin Triglycerides Cholesterol LDL Cholesterol, Calc HDL Cholesterol TSH Free T4 Urine Color Urine Appearance Urine pH Ur Specific [place] Urine Protein Urine Glucose (UA) Urine Ketones Urine Blood Urine Nitrite Ur Leukocyte Esterase Urine RBC Urine WBC Ur Squamous Epith Cells Urine Bacteria Hyaline Casts Urine Mucus Urine Opiates Screen Urine Fentanyl Screen Ur Barbiturates Screen Ur Phencyclidine Scrn Ur Amphetamines Screen U Benzodiazepines Scrn Urine Cocaine Screen U Marijuana (THC) Screen COVID-19 (SHERITA) COVID-19 Clin Com Influenza Type A (HIEN) Influenza Type B (HIEN) Influenza A & B Note 09/28/21 09/28/21 09/28/21 18:30 20:06 23:33 WBC RBC Hgb Hct MCV MCH MCHC RDW Plt Count MPV Immature Gran % (Auto) Neut % (Auto) Lymph % (Auto) Marion % (Auto) Eos % (Auto) Baso % (Auto) Lymph # (Auto) Marion # (Auto) Eos # (Auto) Baso # (Auto) Abs Immat Gran (auto) Absolute Neuts (auto) Absolute Nucleated RBC Nucleated RBC % (auto) Neutrophils % (Manual) Band Neutrophils % Lymphocytes % (Manual) Monocytes % (Manual) Metamyelocytes % Abs Neuts (Manual) Lymphocytes # (Manual) Monocytes # (Manual) Metamyelocytes # Toxic Vacuolation Dohle Bodies Platelet Estimate Large Platelets Plt Morphology Comment RBC Morphology Polychromasia Macrocytosis PT INR APTT D-Dimer High Sensitivty VBG pH VBG pCO2 VBG pO2 VBG HCO3 VBG O2 Saturation VBG Base Excess Sodium Potassium Chloride Carbon Dioxide Anion Gap BUN Creatinine Estim Creat Clear Calc Estimated GFR POC Glucose 140 H Random Glucose Lactic Acid Lactic Acid F/U @ 2Hr Lactic Acid F/U @ 4Hr 2.5 H* Calcium Phosphorus Magnesium Total Bilirubin Direct Bilirubin AST ALT Alkaline Phosphatase Ammonia Total Creatine Kinase Troponin I High Sens B-Natriuretic Peptide Total Protein Albumin Triglycerides Cholesterol LDL Cholesterol, Calc HDL Cholesterol TSH 0.82 Free T4 Urine Color Urine Appearance Urine pH Ur Specific [place] Urine Protein Urine Glucose (UA) Urine Ketones Urine Blood Urine Nitrite Ur Leukocyte Esterase Urine RBC Urine WBC Ur Squamous Epith Cells Urine Bacteria Hyaline Casts Urine Mucus Urine Opiates Screen Urine Fentanyl Screen Ur Barbiturates Screen Ur Phencyclidine Scrn Ur Amphetamines Screen U Benzodiazepines Scrn Urine Cocaine Screen U Marijuana (THC) Screen COVID-19 (SHERITA) COVID-19 Clin Com Influenza Type A (HIEN) Influenza Type B (HIEN) Influenza A & B Note 09/29/21 09/29/21 09/29/21 01:56 02:31 02:38 WBC RBC Hgb Hct MCV MCH MCHC RDW Plt Count MPV Immature Gran % (Auto) Neut % (Auto) Lymph % (Auto) [place] % (Auto) Eos % (Auto) Baso % (Auto) Lymph # (Auto) Marion # (Auto) Eos # (Auto) Baso # (Auto) Abs Immat Gran (auto) Absolute Neuts (auto) Absolute Nucleated RBC Nucleated RBC % (auto) Neutrophils % (Manual) Band Neutrophils % Lymphocytes % (Manual) Monocytes % (Manual) Metamyelocytes % Abs Neuts (Manual) Lymphocytes # (Manual) Monocytes # (Manual) Metamyelocytes # Toxic Vacuolation Dohle Bodies Platelet Estimate Large Platelets Plt Morphology Comment RBC Morphology Polychromasia Macrocytosis PT INR APTT D-Dimer High Sensitivty VBG pH 7.10 L* VBG pCO2 74 VBG pO2 58 VBG HCO3 23 VBG O2 Saturation 70.0 VBG Base Excess -7.6 Sodium Potassium Chloride Carbon Dioxide Anion Gap BUN Creatinine Estim Creat Clear Calc Estimated GFR POC Glucose 169 H Random Glucose Lactic Acid Lactic Acid F/U @ 2Hr Lactic Acid F/U @ 4Hr Calcium Phosphorus Magnesium Total Bilirubin Direct Bilirubin AST ALT Alkaline Phosphatase Ammonia Total Creatine Kinase Troponin I High Sens B-Natriuretic Peptide 970 H Total Protein Albumin Triglycerides Cholesterol LDL Cholesterol, Calc HDL Cholesterol TSH Free T4 Urine Color Urine Appearance Urine pH Ur Specific [place] Urine Protein Urine Glucose (UA) Urine Ketones Urine Blood Urine Nitrite Ur Leukocyte Esterase Urine RBC Urine WBC Ur Squamous Epith Cells Urine Bacteria Hyaline Casts Urine Mucus Urine Opiates Screen Urine Fentanyl Screen Ur Barbiturates Screen Ur Phencyclidine Scrn Ur Amphetamines Screen U Benzodiazepines Scrn Urine Cocaine Screen U Marijuana (THC) Screen COVID-19 (SHERITA) COVID-19 Clin Com Influenza Type A (HIEN) Influenza Type B (HIEN) Influenza A & B Note 09/29/21 09/29/21 09/29/21 02:38 02:38 02:38 WBC 36.6 H* RBC 4.24 L Hgb 12.6 L Hct 41.4 L MCV 97.6 D MCH 29.7 MCHC 30.4 L RDW 15.0 Plt Count 215 MPV 10.1 Immature Gran % (Auto) Cancelled Neut % (Auto) Cancelled Lymph % (Auto) Cancelled [place] % (Auto) Cancelled Eos % (Auto) Cancelled Baso % (Auto) Cancelled Lymph # (Auto) Cancelled [place] # (Auto) Cancelled Eos # (Auto) Cancelled Baso # (Auto) Cancelled Abs Immat Gran (auto) Cancelled Absolute Neuts (auto) Cancelled Absolute Nucleated RBC 0.000 Nucleated RBC % (auto) 0.0 Neutrophils % (Manual) 88 H Band Neutrophils % 7 H Lymphocytes % (Manual) 4 L Monocytes % (Manual) 1 L Metamyelocytes % Abs Neuts (Manual) 34.8 H Lymphocytes # (Manual) 1.5 Monocytes # (Manual) 0.4 Metamyelocytes # Toxic Vacuolation PRESENT Dohle Bodies PRESENT Platelet Estimate NORMAL Large Platelets PRESENT Plt Morphology Comment NORMAL RBC Morphology NOTED Polychromasia 1+ (0-2) Macrocytosis 1+ (5-14) PT INR APTT D-Dimer High Sensitivty VBG pH VBG pCO2 VBG pO2 VBG HCO3 VBG O2 Saturation VBG Base Excess Sodium 135 Potassium 5.5 H Chloride 96 Carbon Dioxide 20 L Anion Gap 25 H BUN 57 H D Creatinine 3.47 H Estim Creat Clear Calc 24.8 Estimated GFR 18 POC Glucose Random Glucose 154 H Lactic Acid Lactic Acid F/U @ 2Hr Lactic Acid F/U @ 4Hr Calcium 12.3 H D Phosphorus Magnesium Total Bilirubin 2.3 H Direct Bilirubin AST 252 H ALT 145 H Alkaline Phosphatase 95 Ammonia Total Creatine Kinase 86 Troponin I High Sens 13.0 B-Natriuretic Peptide Total Protein 7.4 Albumin 3.1 L Triglycerides Cholesterol LDL Cholesterol, Calc HDL Cholesterol TSH Free T4 Urine Color Urine Appearance Urine pH Ur Specific [place] Urine Protein Urine Glucose (UA) Urine Ketones Urine Blood Urine Nitrite Ur Leukocyte Esterase Urine RBC Urine WBC Ur Squamous Epith Cells Urine Bacteria Hyaline Casts Urine Mucus Urine Opiates Screen Urine Fentanyl Screen Ur Barbiturates Screen Ur Phencyclidine Scrn Ur Amphetamines Screen U Benzodiazepines Scrn Urine Cocaine Screen U Marijuana (THC) Screen COVID-19 (SHERITA) COVID-19 Clin Com Influenza Type A (HIEN) Influenza Type B (HIEN) Influenza A & B Note 09/29/21 09/29/21 09/29/21 02:38 02:38 02:39 WBC RBC Hgb Hct MCV MCH MCHC RDW Plt Count MPV Immature Gran % (Auto) Neut % (Auto) Lymph % (Auto) [place] % (Auto) Eos % (Auto) Baso % (Auto) Lymph # (Auto) Marion # (Auto) Eos # (Auto) Baso # (Auto) Abs Immat Gran (auto) Absolute Neuts (auto) Absolute Nucleated RBC Nucleated RBC % (auto) Neutrophils % (Manual) Band Neutrophils % Lymphocytes % (Manual) Monocytes % (Manual) Metamyelocytes % Abs Neuts (Manual) Lymphocytes # (Manual) Monocytes # (Manual) Metamyelocytes # Toxic Vacuolation Dohle Bodies Platelet Estimate Large Platelets Plt Morphology Comment RBC Morphology Polychromasia Macrocytosis PT 15.3 H INR 1.3 H APTT 34.1 D-Dimer High Sensitivty 59381 VBG pH VBG pCO2 VBG pO2 VBG HCO3 VBG O2 Saturation VBG Base Excess Sodium Potassium Chloride Carbon Dioxide Anion Gap BUN Creatinine Estim Creat Clear Calc Estimated GFR POC Glucose Random Glucose Lactic Acid 9.4 H* Lactic Acid F/U @ 2Hr Lactic Acid F/U @ 4Hr Calcium Phosphorus 10.5 H Magnesium 2.7 H Total Bilirubin Direct Bilirubin AST ALT Alkaline Phosphatase Ammonia Total Creatine Kinase Troponin I High Sens B-Natriuretic Peptide Total Protein Albumin Triglycerides Cholesterol LDL Cholesterol, Calc HDL Cholesterol TSH Free T4 0.92 Urine Color Urine Appearance Urine pH Ur Specific [place] Urine Protein Urine Glucose (UA) Urine Ketones Urine Blood Urine Nitrite Ur Leukocyte Esterase Urine RBC Urine WBC Ur Squamous Epith Cells Urine Bacteria Hyaline Casts Urine Mucus Urine Opiates Screen Urine Fentanyl Screen Ur Barbiturates Screen Ur Phencyclidine Scrn Ur Amphetamines Screen U Benzodiazepines Scrn Urine Cocaine Screen U Marijuana (THC) Screen COVID-19 (SHERITA) COVID-19 Clin Com Influenza Type A (HIEN) Influenza Type B (HIEN) Influenza A & B Note 09/29/21 09/29/21 09/29/21 03:24 03:28 03:34 WBC RBC Hgb Hct MCV MCH MCHC RDW Plt Count MPV Immature Gran % (Auto) Neut % (Auto) Lymph % (Auto) [place] % (Auto) Eos % (Auto) Baso % (Auto) Lymph # (Auto) Marion # (Auto) Eos # (Auto) Baso # (Auto) Abs Immat Gran (auto) Absolute Neuts (auto) Absolute Nucleated RBC Nucleated RBC % (auto) Neutrophils % (Manual) Band Neutrophils % Lymphocytes % (Manual) Monocytes % (Manual) Metamyelocytes % Abs Neuts (Manual) Lymphocytes # (Manual) Monocytes # (Manual) Metamyelocytes # Toxic Vacuolation Dohle Bodies Platelet Estimate Large Platelets Plt Morphology Comment RBC Morphology Polychromasia Macrocytosis PT INR APTT D-Dimer High Sensitivty VBG pH VBG pCO2 VBG pO2 VBG HCO3 VBG O2 Saturation VBG Base Excess Sodium Potassium Chloride Carbon Dioxide Anion Gap BUN Creatinine Estim Creat Clear Calc Estimated GFR POC Glucose Random Glucose Lactic Acid Lactic Acid F/U @ 2Hr Lactic Acid F/U @ 4Hr Calcium Phosphorus Magnesium Total Bilirubin Direct Bilirubin AST ALT Alkaline Phosphatase Ammonia 62 H Total Creatine Kinase Troponin I High Sens B-Natriuretic Peptide Total Protein Albumin Triglycerides Cholesterol LDL Cholesterol, Calc HDL Cholesterol TSH Free T4 Urine Color ORANGE A Urine Appearance CLEAR Urine pH 6.0 Ur Specific [place] >= 1.030 H Urine Protein 1+ H Urine Glucose (UA) NEG Urine Ketones 5 Urine Blood NEG Urine Nitrite POS H Ur Leukocyte Esterase NEG Urine RBC 0 Urine WBC 0 Ur Squamous Epith Cells 1+ Urine Bacteria 1+ Hyaline Casts 0-2 Urine Mucus 1+ Urine Opiates Screen POSITIVE H Urine Fentanyl Screen POSITIVE H Ur Barbiturates Screen Not Detected Ur Phencyclidine Scrn Not Detected Ur Amphetamines Screen Not Detected U Benzodiazepines Scrn Not Detected Urine Cocaine Screen Not Detected U Marijuana (THC) Screen Not Detected COVID-19 (SHERITA) COVID-19 Clin Com Influenza Type A (HIEN) Influenza Type B (HIEN) Influenza A & B Note 09/29/21 09/29/21 09/29/21 05:10 05:10 05:10 WBC 26.5 H RBC 3.61 L Hgb 10.8 L Hct 34.1 L MCV 94.5 MCH 29.9 MCHC 31.7 RDW 14.8 Plt Count 189 MPV 10.1 Immature Gran % (Auto) Neut % (Auto) Lymph % (Auto) [place] % (Auto) Eos % (Auto) Baso % (Auto) Lymph # (Auto) [place] # (Auto) Eos # (Auto) Baso # (Auto) Abs Immat Gran (auto) Absolute Neuts (auto) Absolute Nucleated RBC 0.000 Nucleated RBC % (auto) 0.0 Neutrophils % (Manual) Band Neutrophils % Lymphocytes % (Manual) Monocytes % (Manual) Metamyelocytes % Abs Neuts (Manual) Lymphocytes # (Manual) Monocytes # (Manual) Metamyelocytes # Toxic Vacuolation Dohle Bodies Platelet Estimate Large Platelets Plt Morphology Comment RBC Morphology Polychromasia Macrocytosis PT INR APTT D-Dimer High Sensitivty VBG pH VBG pCO2 VBG pO2 VBG HCO3 VBG O2 Saturation VBG Base Excess Sodium 133 L Potassium 4.6 Chloride 96 Carbon Dioxide 24 Anion Gap 18 BUN 59 H Creatinine 3.23 H Estim Creat Clear Calc 26.7 Estimated GFR 20 POC Glucose Random Glucose 180 H Lactic Acid Lactic Acid F/U @ 2Hr Lactic Acid F/U @ 4Hr Calcium 10.3 H D Phosphorus 6.8 H Magnesium Total Bilirubin Direct Bilirubin AST ALT Alkaline Phosphatase Ammonia Total Creatine Kinase Troponin I High Sens 83.2 H D B-Natriuretic Peptide Total Protein Albumin Triglycerides 96 Cholesterol 139 LDL Cholesterol, Calc 86 HDL Cholesterol 34 TSH Free T4 Urine Color Urine Appearance Urine pH Ur Specific [place] Urine Protein Urine Glucose (UA) Urine Ketones Urine Blood Urine Nitrite Ur Leukocyte Esterase Urine RBC Urine WBC Ur Squamous Epith Cells Urine Bacteria Hyaline Casts Urine Mucus Urine Opiates Screen Urine Fentanyl Screen Ur Barbiturates Screen Ur Phencyclidine Scrn Ur Amphetamines Screen U Benzodiazepines Scrn Urine Cocaine Screen U Marijuana (THC) Screen COVID-19 (SHERITA) COVID-19 Clin Com Influenza Type A (HIEN) Influenza Type B (HIEN) Influenza A & B Note 09/29/21 09/29/21 09/29/21 05:10 05:13 07:35 WBC RBC Hgb Hct MCV MCH MCHC RDW Plt Count MPV Immature Gran % (Auto) Neut % (Auto) Lymph % (Auto) [place] % (Auto) Eos % (Auto) Baso % (Auto) Lymph # (Auto) [place] # (Auto) Eos # (Auto) Baso # (Auto) Abs Immat Gran (auto) Absolute Neuts (auto) Absolute Nucleated RBC Nucleated RBC % (auto) Neutrophils % (Manual) Band Neutrophils % Lymphocytes % (Manual) Monocytes % (Manual) Metamyelocytes % Abs Neuts (Manual) Lymphocytes # (Manual) Monocytes # (Manual) Metamyelocytes # Toxic Vacuolation Dohle Bodies Platelet Estimate Large Platelets Plt Morphology Comment RBC Morphology Polychromasia Macrocytosis PT INR APTT D-Dimer High Sensitivty VBG pH 7.31 L VBG pCO2 46 VBG pO2 51 VBG HCO3 23 VBG O2 Saturation 77.0 VBG Base Excess -2.5 Sodium Potassium Chloride Carbon Dioxide Anion Gap BUN Creatinine Estim Creat Clear Calc Estimated GFR POC Glucose Random Glucose Lactic Acid Lactic Acid F/U @ 2Hr 4.6 H* Lactic Acid F/U @ 4Hr 2.7 H* Calcium Phosphorus Magnesium Total Bilirubin Direct Bilirubin AST ALT Alkaline Phosphatase Ammonia Total Creatine Kinase Troponin I High Sens B-Natriuretic Peptide Total Protein Albumin Triglycerides Cholesterol LDL Cholesterol, Calc HDL Cholesterol TSH Free T4 Urine Color Urine Appearance Urine pH Ur Specific [place] Urine Protein Urine Glucose (UA) Urine Ketones Urine Blood Urine Nitrite Ur Leukocyte Esterase Urine RBC Urine WBC Ur Squamous Epith Cells Urine Bacteria Hyaline Casts Urine Mucus Urine Opiates Screen Urine Fentanyl Screen Ur Barbiturates Screen Ur Phencyclidine Scrn Ur Amphetamines Screen U Benzodiazepines Scrn Urine Cocaine Screen U Marijuana (THC) Screen COVID-19 (SHERITA) COVID-19 Clin Com Influenza Type A (HIEN) Influenza Type B (HIEN) Influenza A & B Note Microbiology Microbiology Results: Microbiology 09/29/21 05:10 Sputum - Suctioned Gram Stain - Final Quality Stroke Does the patient have a stroke diagnosis?: No VTE Prior VTE?: No VTE Risk Level:: Medical - moderate - high VTE Device Contraindication: N/A - Device Ordered VTE Drug Contraindication: Treatment Not Indicated Critical Care Time Critical Care Time (minutes): 150
--- NOTE | 2021-09-29 09:32 | W.PM.CCHP ---
Procedures Date of Service Date of Service: 09/29/21 Arterial Line Arterial Line Comments: PROCEDURE:? Insertion right axillary arterial line. Indications:? Cardiac arrest, shock, hypoxemic respiratory failure. Anesthesia:? Local. The right axillary artery was located with vascular ultrasound and marked.? Excellent visualization, about 4-5 mm diameter. The axilla and upper arm were prepped and draped.? The axillary artery was again identified.? Lidocaine local anesth was infiltrated at the needle insertion site.? The artery was cannulated on the first pass under US guidance with the 20 gauge thin wall and the wire advanced without incident.? The Arrow 20g x 5? femoral arterial cannula was inserted via Seldinger technique without complications and sutured in place with 3-0 silk x 2.? There was an excellent wave form.?? A biopatch and dry sterile dressing were applied. The patient tolerated the procedure well with no complications. Consent: Emergent-no informed consent obtained
[2021-09-29 09:34] LABS: ABG Base Excess -2.2 mmol/L; ABG HCO3 23 mmol/L (22-26); ABG pCO2 44 mmHg (32-45); ABG pH 7.33 (7.35-7.45); ABG pO2 83 mmHg (83-108)
[2021-09-29 09:42] LABS: PTT Heparin Drip 154.6 SEC (53-77.9)
[2021-09-29 11:02] LABS: PTT Heparin Drip 103.5 SEC (53-77.9)
--- NOTE | 2021-09-29 11:32 | ECG_ITS ---
Test Reason : cp Blood Pressure : / mmHG Vent. Rate : 091 BPM Atrial Rate : 000 BPM P-R Int : 000 ms QRS Dur : 180 ms QT Int : 418 ms P-R-T Axes : 000 -38 108 degrees QTc Int : 514 ms Artifact in tracing Wide QRS rhythm Left axis deviation Left bundle branch block Abnormal ECG When compared with ECG of 28-SEP-2021 23:02, Wide QRS rhythm has replaced Sinus rhythm Vent. rate has increased BY 46 BPM Referred By: Wesley Busby Electronically Signed By:LOC AMADOR
[2021-09-29] MEDS: Insulin Lispro 100 UNIT/ML 3 ML VIAL SUBCUT ×3 (11:38→21:11)
--- NOTE | 2021-09-29 12:08 | MHC.CM.PN ---
Cm attempted to contact pt's methadone clinic at 12:05pm, [facility] [phone], per recording clinic is only open from 7am-10am on w/e's, this cm will revisit in am.
[2021-09-29 12:09] LABS: VBG Base Excess -2.9 mmol/L; VBG HCO3 24 mmol/L (22-26); VBG pCO2 51 mmHg; VBG pH 7.27 (7.32-7.43); VBG pO2 72 mmHg
[2021-09-29 12:11] LABS: Venous Blood Gas Refer to POC result
[2021-09-29 12:28] LABS: Troponin-I High Sensitivity 110.8 ng/L (<3.5-35.0)
[2021-09-29 12:29] LABS: Alanine Aminotransferase 357 U/L (0-40); Albumin Level 3.4 g/dL (3.5-5.0); Alkaline Phosphatase 78 U/L (39-117); Anion Gap 18 (12-20); Aspartate Amino Transferase 828 U/L (5-37); Bilirubin Total 2.6 mg/dL (0.0-1.0); Blood Urea Nitrogen 63 mg/dL (9-16); Calcium 9.8 mg/dL (8.4-10.2); Carbon Dioxide 25 mmol/L (22-29); Chloride 95 mmol/L (96-108); Creatinine Clr Calc Pharmacy 27.2; Estimated Glomerular Filt Rate 20; Glucose Random 311 mg/dL (60-115); Potassium 3.9 mmol/L (3.3-5.1); Sodium 134 mmol/L (135-145); Total Protein 6.7 g/dL (6.5-8.0)
[2021-09-29 12:49] LABS: Reflex Lactate? No addnl Lactic Acid
[2021-09-29 12:50] LABS: Cancel Lactic Acid Canceled
[2021-09-29 13:10] LABS: ABG Base Excess 0.1 mmol/L; ABG HCO3 26 mmol/L (22-26); ABG pCO2 50 mmHg (32-45); ABG pH 7.32 (7.35-7.45); ABG pO2 65 mmHg (83-108)
--- NOTE | 2021-09-29 14:00 | MHC.CM.PN ---
EMR REVIEWED, PT ADMITTED SEPSIS/CAP AND TRANSFERRED TO ICU AFTER CARDIAC ARREST, CM MET W/PT'S DTR AND SISTER MARIANELA OVER FACETIME W/BRII (PRIMARY CONTACT) PRESENT HOWEVER BRII LEFT WHILE CM WAS ASKING QUESTIONS, PER PT'S DTR PT USES M[facility]ADONE CLINIC ON [facility] IN [place], PT IS INDEPENDENT W/ALL CARE, USES AN ALBUTEROL INHALER AND HAS NO HOME SERVICES, PER FAMILY PT WOULD WANT TO LIVE AND DO WHATEVER HE NEEDED SO FEEL HE WOULD BE AGREEABLE TO LTC OR ANY SERVICES NEEDED. FAMILY ASKING FOR LETTER FOR BROTHER IN [place], CM CONSULTED W/CM DIRECTOR HOWEVER ICU PROVIDER HAS COMPLETED FOR FAMILY. DISPO PENDING AT THIS TIME, CM WILL FOLLOW UP W/PT STATUS TOMORROW 09/30/21. PT DOES NOT HAVE A HCP PER FAMILY.
[2021-09-29 15:53] LABS: ABG Refer to POC result
[2021-09-29 15:58] LABS: ABG Refer to POC result
[2021-09-29] MEDS: Azithromycin 500 MG in 0.9 % Sodium Chloride 250 ML 125 MG IV (17:08)
[2021-09-29] MEDS: Piperacillin Sodium/Tazobactam 2.25 GM in 0.9 % Sodium Chloride 50 ML IV ×2 (17:08→21:14)
[2021-09-29] MEDS: Heparin Sodium,Porcine 5,000 UNIT/ML VIAL 5000 UNIT SUBCUT ×2 (17:09→23:34)
[2021-09-29] MEDS: fentaNYL citrate/NS 1,000 MCG/100 ML PLAST..BAG 7.5 MCG IVCONT (19:26)
[2021-09-29 20:31] LABS: Glucose, Whole Blood 174 mg/dL (60-115)
[2021-09-29 20:31] LABS: Glucose, Whole Blood 241 mg/dL (60-115)
[2021-09-29 20:31] LABS: Glucose, Whole Blood 236 mg/dL (60-115)
[2021-09-29 20:31] LABS: Glucose, Whole Blood 185 mg/dL (60-115)
[2021-09-29] MEDS: EPINEPHrine 5 MG in Dextrose 5 % 250 ML 16.3 MG IVCONT (21:13)
--- NOTE | 2021-09-29 21:37 | W.MHC.ACPN ---
Advanced Care Planning Note Advanced Care Planning Note Discussed with: family member(s) Time spent (in minutes): 60 Narrative: REMAINS FULL CODE UNTIL ALL FAMILY ARE ABLE TO BE HERE IF AT ALL POSSIBLE I had a 1 hour meeting with multiple family members including the patient's daughter, nephews, nieces, uncles and aunts; all who were present in visiting the patient here in the hospital.? In addition in after the meeting with them, a was asked to speak to the patient's sister and brother over the phone via conference to explain the same things in a more concise manner. All family members and the patient's daughter understand the patient's prognosis is poor, unfortunately patient has multiple comorbidities, long history of polysubstance abuse and alcoholism, the fact that he had a cardiorespiratory arrest last night which despite the fact that we were able to get him back, there is already evidence on clinical exam that the patient has a poor prognosis, he does not have told size, no corneal reflex, has shown some decortication signs all of which are concerning for this patient's prognosis. I spoke to them at length about the possibility of him having another cardiac arrest and if so will would be their decision, they insist to continue with full code and would like us to try everything at least until every family member gets here to say their goodbyes. ?They also understand that there is no guarantees that if he was to have another cardiac arrest, we would be able to bring him back, they are aware of the detrimental effect or impact this with having the patient's life. They understand the best next step for the patient may be to be DNR, DNI and eventually maybe even [employer] but they are not ready yet; it is understandable that they want to wait for a may be a little too soon before making any further decisions or at least until all family members are in the area I went over laboratories, images, diagnosis, certain treatments and other things also with the patient's brother who is a physician in [place] and who will also be coming to see the patient in the neck is 24-48 hours. Again the patient remains full code, intermittently, the patient does have a synchrony with the vent, he will need to be paralyzed, will continue with propofol, at this point we have no need to use pressors. Total time spent with all family members and answering questions in a [id number] meeting 60 min Problems Discussed (1) Community acquired pneumonia: (2) Sepsis: (3) Lactic acidosis: (4) Hyponatremia: (5) Liver cirrhosis: (6) CKD (chronic kidney disease) stage 3, GFR 30-59 ml/min:
[2021-09-29] MEDS: propofoL 1,000 MG/100 ML VIAL 12.79 MG IVCONT (23:30)
[2021-09-29] MEDS: Rocuronium Bromide 50 MG/5 ML VIAL IVPUSH (23:46)
[2021-09-30] VITALS (37 sets, daily range): BP systolic 122–159; BP diastolic 63–82; PULSE 61–81; RESP 18–25; TEMP 33–37.7; O2SAT 85–96; BMI 42.0
[2021-09-30] MEDS: Albuterol/Iprat 2.5/0.5MG 3 ML AMPUL.NEB INHALE ×6 (00:09→19:17)
[2021-09-30] MEDS: propofoL 1,000 MG/100 ML VIAL 25.58 MG IVCONT ×5 (01:48→21:26)
--- NOTE | 2021-09-30 03:13 | PC.NURSE ---
CARE ASSUMED 23:15..REMAINS TUBED/VENTED VCV/AC MODE....PROPOFOL 20 MCG/KG/MIN AT HS...PERIODS OF DECORTICATE POSTURING AT HS..NO CORNEAL REFLEX...RAPID DESATURATION WITH POSTURING AND VENT DYSYNCHRONY.....SAO2 60%...PA PRESENT...PROPOFOL TITRATED TO 40 MCG/KG/MIN FOLLOWED BY RORCURONIUM X1 PER AUG WITH RETURN OF VENT SYNCHRONY....MAINTAINED FENTANYL 100 MCG/HR ..EPINEPHRINE DRIP 0.05 MCG/KG/MIN...NSR HR 66-72....RIGHT UPPER ARM A-LINE PRESENT WITH GOOD WAVEFORM
[2021-09-30] MEDS: fentaNYL citrate/NS 1,000 MCG/100 ML PLAST..BAG 10 MCG IVCONT ×2 (04:28→13:44)
[2021-09-30] MEDS: Piperacillin Sodium/Tazobactam 2.25 GM in 0.9 % Sodium Chloride 50 ML IV ×3 (04:41→16:02)
[2021-09-30 05:12] LABS: VBG Base Excess 2.2 mmol/L; VBG HCO3 26 mmol/L (22-26); VBG pCO2 39 mmHg; VBG pH 7.43 (7.32-7.43); VBG pO2 58 mmHg
[2021-09-30 05:22] LABS: Hematocrit 34.4 % (42.0-52.0); Hemoglobin 11.3 g/dl (14.0-18.0); Mean Corpuscular HGB Conc 32.8 g/dl (31.0-36.0); Mean Corpuscular Hemoglobin 29.9 pg (27.0-33.0); Mean Platelet Volume 10.1 fL (9.4-12.4); Platelet Count 245 X10*3/uL (160-400); Red Blood Count 3.78 X10*6/uL (4.60-5.80); Red Cell Distribution Width 14.6 % (11.0-16.0); White Blood Count 28.8 X10*3/uL (4.8-10.8)
[2021-09-30 05:30] LABS: D Dimer High Sensitivity 3194 NG/ML
[2021-09-30 05:34] LABS: Venous Blood Gas Refer to POC result
[2021-09-30 05:35] LABS: Lactic Acid 1.3 mmol/L (0.5-2.0)
[2021-09-30 05:47] LABS: Alanine Aminotransferase 432 U/L (0-40); Albumin Level 3.2 g/dL (3.5-5.0); Alkaline Phosphatase 82 U/L (39-117); Anion Gap 17 (12-20); Aspartate Amino Transferase 548 U/L (5-37); Bilirubin Total 1.9 mg/dL (0.0-1.0); Blood Urea Nitrogen 72 mg/dL (9-16); Calcium 9.3 mg/dL (8.4-10.2); Carbon Dioxide 26 mmol/L (22-29); Chloride 99 mmol/L (96-108); Creatinine Clr Calc Pharmacy 27.4; Estimated Glomerular Filt Rate 20; Glucose Random 237 mg/dL (60-115); Phosphorus 4.2 mg/dL (2.7-4.5); Sodium 138 mmol/L (135-145); Total Protein 6.7 g/dL (6.5-8.0)
[2021-09-30 07:07] LABS: Glucose, Whole Blood 207 mg/dL (60-115)
[2021-09-30] MEDS: Lactulose 20 GM/30 ML SOLUTION 30 GM PO ×2 (07:11→16:01)
[2021-09-30] MEDS: Insulin Lispro 100 UNIT/ML 3 ML VIAL SUBCUT ×3 (07:11→20:56)
[2021-09-30] MEDS: Heparin Sodium,Porcine 5,000 UNIT/ML VIAL 5000 UNIT SUBCUT ×2 (07:11→16:02)
[2021-09-30] MEDS: 0.9 % Sodium Chloride Flush 3 ML SYRINGE IVFLUSH ×2 (07:12→16:02)
[2021-09-30] MEDS: Folic Acid 1 MG TABLET PO (07:12)
[2021-09-30] MEDS: Thiamine HCL 100 MG TABLET OG-TUBE (07:12)
[2021-09-30] MEDS: Chlorhexidine Gluc Oral Rinse 15 ML MOUTHWASH BUCCAL ×3 (08:20→20:57)
[2021-09-30 11:57] LABS: Glucose, Whole Blood 204 mg/dL (60-115)
[2021-09-30] MEDS: propofoL 1,000 MG/100 ML VIAL 19.19 MG IVCONT (12:19)
[2021-09-30] MEDS: fentaNYL citrate/PF 100 MCG/2 ML VIAL IVPUSH (14:28)
[2021-09-30] MEDS: propofoL 1,000 MG/100 ML VIAL 31.98 MG IVCONT (15:16)
[2021-09-30] MEDS: Azithromycin 500 MG in 0.9 % Sodium Chloride 250 ML 125 MG IV (16:02)
[2021-09-30 16:18] LABS: Glucose, Whole Blood 145 mg/dL (60-115)
--- NOTE | 2021-09-30 18:39 | PM.CCPN ---
Subjective Subjective Date of Service: 09/30/21 Interval History: Mr. Britton was transferred to ICU yesterday morning after cardiac arrest on IMC. The patient is a 61-year-old male with a past medical history of morbid obesity (5-3?, 106kg), DARRIAN (basline serum bicarb 30), CKD (baseline about 21/1.3), congestive heart failure, diabetes on metformin, irritable bowel syndrome, GERD, alcohol abuse.? Family told me that the patient has also been on methadone maint x 2 years. ECHOCARDIOGRAM 05/09/2021:? Normal LV cavity size w mildly increased wall thickness.? LV systolic function is normal, EF 66% w no RWMA and normal diastolic function.? Normal RV cavity size and systolic function.? No obvious valvular pathology.? IVC was mildly dilated with < 50% insp collapse. The patient lives with his common law of 9 years.? Doesn?t work.? Fully independent, drives.? He?s chronically SOB. The patient was BIBA to the ED 09/28 from his primary care office at [facility] reporting cough and shortness of breath for one week that had become progressively worse.? In addition he?d been having chest pain for two days described as sub sternal, worse with deep inspiration or cough.? Associated nausea but no vomiting.? Denies fever, chills, nasal congestion, vomiting, abdominal pain, dysuria, diarrhea, constipation, lower extremity edema, weakness, falls.? Upon EMS arrival at the scene, was noted to be hypoxemic with room air Sat high 80s.? On 4 L, SpO2 was 92-94%. In the ED, HR 57, BP 101/59, RR 20, Sat 90% on 4LNC, temp 101.2?.? He was ill appearing and toxic.? Labs notable for white count 30, Hb , BUN/creatinine 31/1.6, sodium 132, K4.9, bicarb 29, gluc 160, tbili 2.6, normal transaminases, alb 3.3 (baseline normal), normal trop, BNP 1289, lactate 2.8. EKG showed no ischemic changes.? Chest x-ray showed a widened mediastinum and cardiac silhouette.? Noncontrast chest CT showed a right lower lobe consolidation with air bronchograms, and also a small area of consolidation with air bronchograms in the superior left lower lobe.? In the upper abdomen, hepatic enlargement with surface nodularity was noted, suggestive of cirrhosis.? Abdominal ultrasound showed no ascites; the liver was echogenic with changes suggestive of mild cirrhosis. The patient was given ceftriaxone and 30 cc/kg NS.? Doxycycline was added after the chest CT.? The patient was admitted to Medicine.? Antibiotics were changed to Zosyn and Zithromax for pneumonia.? The patient was also started on CIWA and phenobarbital protocol because of high risk for ROMARIO. About 0150 the following morning (yesterday morning), osiris alvarado was called after he became bradycardic and went into cardiac arrest.? First rhythm was asystole.? Had 4 rounds of epinephrine.? ROSC at about 14-16 minutes.? Throughout the cardiac arrest the patient was in asystole.? The patient was transferred to the ICU for further management.? The patient was given fluids and stabilized w Levophed and epinephrine.? There was a new LBBB on EKG and heparin was started, but was discontinued after few hours when the EKG normalized.? On exam, he was deeply comatose, with no eye opening, no response to stimulation, no corneals, no doll's eyes, and no gag.? He had decorticate posturing.? He?s been severely hypoxemic with diffuse bilateral airspace disease. On exam today, eyes open to stimulation.? He?s otherwise unresponsive, with no corneals and no doll's eyes, but he does have a gag.? Blood pressure and respiratory rate go up and he decorticates with stimulation. ?He?s on propofol and fentanyl to block the coughing fits.? Levophed is off, Epi @ 0.01ug.? HR now 70, BP 127/68.? On AC 18/400/90%/+12, RR 19, Ve 7.4L, PIP 31cm, Sat is 94%.? Temp 98.8?.? Pupils are about 5mm bilat.? No JVD (he has no neck).? Chest is now clear except for few coarse crackles at the right base.? Expiratory phase is normal.? Soft heart tones; I heard no murmur or gallops.? Abdomen is obese and fairly firm, but not hard; ?IAP yesterday was 15mm.? No peripheral edema.? Neuro:? As above.? I saw no myoclonus today. 24 hr urine output: 2400cc. LABORATORY DATA:? Below.? Notably, white count steady. ?BUN up slightly, creatinine steady.? Bicarb 26, Phosphorus is down to 4.2.? LFTs coming down. MICROBIOLOGY:? Sputum 09/29 showed 2+ polys, no organisms. My bedside ECHOCARDIOGRAM:? Very poor images.? The only thing I can say is that the LV is full, LVEF is probably at least 30%, and the RV is full.? Unable to obtain any images of the IVC. IMPRESSION: 1. Morbid obesity with DARRIAN. 2. CKD (baseline about 29/06.3) 3. Reported h/o congestive heart failure, although the echo does not support that. 4. I suspect he has RHF, given his IVC findings. 5. Diabetes on metformin. 6. Cirrhosis. 7. Admitted with CAP.? Will change the Zosyn to ceftriaxone, and give him 3 more days.? D/C Zithromax. 8. S/p cardiac arrest, with 14-16 min of CPR w asystole.? Most likely cause (statistically) was respiratory.? No DVT on duplex scan, perfusion scan was low probability.? [facility]. ? 9. Anoxic encephalopathy.? EKG and troponins were unremarkable.? ACS is unlikely.? EEG and CT scan scheduled for tomorrow. 10. Deeply comatose at present, with complete loss of cortical fxn, and loss of some brainstem fxn. 11. Severe acute hypoxemic respiratory failure.? CXR shows diffuse bilateral airspace disease of undetermined etiology.? Could be ARDS versus cardiogenic pulmonary edema versus massive bilateral aspiration. I added a chest CT to his brain CT tomorrow. 12. ZANE.? Undoubtedly ischemic ATN.? But not getting worse. 13. Shock liver.? Improving. 14. ?Elevated ammonia level.? On lactulose.? Repeat ammonia level is pending. I spoke with the patient's significant other Ibis and with the patient's brother again today, and updated them on treatment, condition, and prognosis. ADDENDUM:? We turned the propofol off.? After about 10 minutes, the patient opened his eyes, and seemed to turn his head towards the sound of air voices.? He brought both arms up towards his head. ?However, there was no response to confrontation, and the patient remained 100% non interactive. Critical care time: ?75+ min. Critical Care Time (minutes): 75 Physical Exam Vital Signs: Vital Signs: Last Vital Signs Temp 98.8 F 09/30/21 18:00 Pulse 61 09/30/21 18:00 Resp 19 09/30/21 18:00 BP 132/72 09/30/21 18:00 Pulse Ox 94 09/30/21 18:00 Oxygen Flow Rate 4 09/28/21 11:25 BMI result Body Mass Index 42.0 Objective Data Labs CBC & Chem 7: 09/30/21 05:05 09/30/21 05:05 Labs: Laboratory Results - last 24 hr 09/29/21 09/29/21 09/29/21 07:33 11:34 16:51 WBC RBC Hgb Hct MCV MCH MCHC RDW Plt Count MPV Absolute Nucleated RBC Nucleated RBC % (auto) D-Dimer High Sensitivty VBG pH VBG pCO2 VBG pO2 VBG HCO3 VBG O2 Saturation VBG Base Excess Sodium Potassium Chloride Carbon Dioxide Anion Gap BUN Creatinine Estim Creat Clear Calc Estimated GFR POC Glucose 174 H 241 H 236 H Random Glucose Lactic Acid Calcium Phosphorus Magnesium Total Bilirubin AST ALT Alkaline Phosphatase Troponin I High Sens Total Protein Albumin 09/29/21 09/30/21 09/30/21 20:26 05:03 05:05 WBC 28.8 H RBC 3.78 L Hgb 11.3 L Hct 34.4 L MCV 91.0 MCH 29.9 MCHC 32.8 RDW 14.6 Plt Count 245 D MPV 10.1 Absolute Nucleated RBC 0.000 Nucleated RBC % (auto) 0.0 D-Dimer High Sensitivty VBG pH 7.43 VBG pCO2 39 VBG pO2 58 VBG HCO3 26 VBG O2 Saturation 85.0 VBG Base Excess 2.2 Sodium Potassium Chloride Carbon Dioxide Anion Gap BUN Creatinine Estim Creat Clear Calc Estimated GFR POC Glucose 185 H Random Glucose Lactic Acid Calcium Phosphorus Magnesium Total Bilirubin AST ALT Alkaline Phosphatase Troponin I High Sens Total Protein Albumin 09/30/21 09/30/21 09/30/21 05:05 05:05 05:05 WBC RBC Hgb Hct MCV MCH MCHC RDW Plt Count MPV Absolute Nucleated RBC Nucleated RBC % (auto) D-Dimer High Sensitivty 3194 VBG pH VBG pCO2 VBG pO2 VBG HCO3 VBG O2 Saturation VBG Base Excess Sodium 138 Potassium 4.0 Chloride 99 Carbon Dioxide 26 Anion Gap 17 BUN 72 H Creatinine 3.16 H Estim Creat Clear Calc 27.4 Estimated GFR 20 POC Glucose Random Glucose 237 H Lactic Acid 1.3 Calcium 9.3 Phosphorus 4.2 Magnesium 2.0 Total Bilirubin 1.9 H AST 548 H ALT 432 H Alkaline Phosphatase 82 Troponin I High Sens Total Protein 6.7 Albumin 3.2 L 09/30/21 09/30/21 09/30/21 05:05 07:02 11:51 WBC RBC Hgb Hct MCV MCH MCHC RDW Plt Count MPV Absolute Nucleated RBC Nucleated RBC % (auto) D-Dimer High Sensitivty VBG pH VBG pCO2 VBG pO2 VBG HCO3 VBG O2 Saturation VBG Base Excess Sodium Potassium Chloride Carbon Dioxide Anion Gap BUN Creatinine Estim Creat Clear Calc Estimated GFR POC Glucose 207 H 204 H Random Glucose Lactic Acid Calcium Phosphorus Magnesium Total Bilirubin AST ALT Alkaline Phosphatase Troponin I High Sens 85.0 H Total Protein Albumin 09/30/21 16:04 WBC RBC Hgb Hct MCV MCH MCHC RDW Plt Count MPV Absolute Nucleated RBC Nucleated RBC % (auto) D-Dimer High Sensitivty VBG pH VBG pCO2 VBG pO2 VBG HCO3 VBG O2 Saturation VBG Base Excess Sodium Potassium Chloride Carbon Dioxide Anion Gap BUN Creatinine Estim Creat Clear Calc Estimated GFR POC Glucose 145 H Random Glucose Lactic Acid Calcium Phosphorus Magnesium Total Bilirubin AST ALT Alkaline Phosphatase Troponin I High Sens Total Protein Albumin Microbiology Microbiology Results: Microbiology 09/28/21 13:00 Blood - Venous Blood Culture - Preliminary No growth after 48 hours. 09/28/21 13:00 Blood - Venous Blood Culture - Preliminary No growth after 48 hours. 09/29/21 Unknown Urine clean catch - Clean Catch Midstream Urine Culture - Final No growth. 09/29/21 05:10 Sputum - Suctioned Gram Stain - Final Quality Stroke Does the patient have a stroke diagnosis?: No VTE Prior VTE?: No VTE Risk Level:: Medical - moderate - high VTE Device Contraindication: N/A - Device Ordered VTE Drug Contraindication: Treatment Not Indicated Critical Care Time Critical Care Time (minutes): 90
[2021-09-30 18:58] LABS: Ammonia 43 umol/L (13-55)
[2021-09-30 20:49] LABS: Glucose, Whole Blood 169 mg/dL (60-115)
[2021-09-30] MEDS: fentaNYL citrate/NS 1,000 MCG/100 ML PLAST..BAG 12.5 MCG IVCONT (22:53)
[2021-09-30] MEDS: cefTRIAXone sodium 1 GM in 0.9 % Sodium Chloride 50 ML IV (22:55)
[2021-10-01] VITALS (36 sets, daily range): BP systolic 120–174; BP diastolic 64–81; PULSE 44–75; RESP 18–26; TEMP 33.7–38.8; O2SAT 86–99; BMI 41.9
[2021-10-01] MEDS: Heparin Sodium,Porcine 5,000 UNIT/ML VIAL 5000 UNIT SUBCUT ×3 (00:05→15:02)
[2021-10-01] MEDS: fentaNYL citrate/PF 100 MCG/2 ML VIAL IVPUSH ×2 (00:06→02:40)
[2021-10-01] MEDS: Albuterol/Iprat 2.5/0.5MG 3 ML AMPUL.NEB INHALE ×6 (00:12→18:52)
[2021-10-01] MEDS: propofoL 1,000 MG/100 ML VIAL 25.58 MG IVCONT (00:41)
[2021-10-01] MEDS: 0.9 % Sodium Chloride Flush 3 ML SYRINGE IVFLUSH ×4 (00:44→23:41)
--- NOTE | 2021-10-01 02:56 | PC.NURSE ---
Addendum entered by Rogelio Larson RN 10/01/21 06:31: Patient able to tolerate bed bath and repositioning this morning with increased sedation, fentanyl at 150mcg/hr and propofol at 50mcg/kg/hr. Patient desated to 70's during patient care but recovered shortly after. Original Note: Patient sedated on propofol and fentanyl. With pt care pt desats to 50's - 60's and becomes bradycardic to 40s. RT at bedside during each reposition for airway monitoring. Recovers within a few minutes to oxygen >90, but when pt care (repositioning, hygiene, mouth care) attempted again he continues to desat. PRN fentanyl given with care x2 per PA orders with no effect. Gallo ARELLANO made aware of desaturation w/ patient care - order to do minimal repositioning in order to keep O2sat > 90.
[2021-10-01] MEDS: propofoL 1,000 MG/100 ML VIAL 31.98 MG IVCONT ×7 (04:15→21:19)
[2021-10-01 04:48] LABS: HBS Num1 19.67 mIU/mL (0-7.99); HBc Num1 0.08 S/CO (0.00-0.79); HBsAGNum1 0.18 S/CO (0.00-0.99); Hepatitis B Core Antibody Nonreactive (Nonreactive); Hepatitis B Surface Antigen Negative (Negative); ~HepC Num1 0.16 S/CO (0.00-0.79); ~Hepatitis B Surface Antibody REACTIVE (Nonreactive); ~Hepatitis C Antibody Nonreactive (Nonreactive)
[2021-10-01 05:20] LABS: VBG Base Excess 5.2 mmol/L; VBG HCO3 30 mmol/L (22-26); VBG pCO2 46 mmHg; VBG pH 7.41 (7.32-7.43); VBG pO2 57 mmHg
[2021-10-01 05:23] LABS: Venous Blood Gas Refer to POC result
[2021-10-01 05:35] LABS: MANUAL DIFF FLAG NO
[2021-10-01 05:38] LABS: Basophils Percent Auto 0.1 % (0-2); Hematocrit 32.4 % (42.0-52.0); Hemoglobin 10.2 g/dl (14.0-18.0); Imm Gran Abs Auto 0.38 X10*3/uL (0.00-0.03); Imm Gran Pct Auto 2.3 % (0.0-0.4); Lymphocytes Percent Auto 6.4 % (20-40); Mean Corpuscular HGB Conc 31.5 g/dl (31.0-36.0); Mean Corpuscular Hemoglobin 28.9 pg (27.0-33.0); Mean Corpuscular Volume 91.8 fL (80.0-98.0); Monocytes Absolute Auto 1.1 X10*3/uL (0.1-1.2); Monocytes Percent Auto 6.8 % (2-11); Neutrophils Absolute Auto 13.8 x10*3/uL (2.0-8.3); Neutrophils Percent Auto 84.4 % (45-73); Platelet Count 189 X10*3/uL (160-400); Red Blood Count 3.53 X10*6/uL (4.60-5.80); Red Cell Distribution Width 15.1 % (11.0-16.0); White Blood Count 16.4 X10*3/uL (4.8-10.8)
[2021-10-01] MEDS: fentaNYL citrate/NS 1,000 MCG/100 ML PLAST..BAG 15 MCG IVCONT ×3 (05:38→18:56)
[2021-10-01 05:59] LABS: Alanine Aminotransferase 307 U/L (0-40); Albumin Level 2.9 g/dL (3.5-5.0); Alkaline Phosphatase 102 U/L (39-117); Anion Gap 15 (12-20); Aspartate Amino Transferase 204 U/L (5-37); B Type Natriuretic Peptide 610 pg/mL (<100); Bilirubin Total 1.6 mg/dL (0.0-1.0); Blood Urea Nitrogen 64 mg/dL (9-16); Carbon Dioxide 27 mmol/L (22-29); Chloride 106 mmol/L (96-108); Creatinine Clr Calc Pharmacy 35.7; Estimated Glomerular Filt Rate 27; Glucose Random 117 mg/dL (60-115); Magnesium 2.3 mg/dL (1.6-2.6); Phosphorus 3.1 mg/dL (2.7-4.5); Potassium 4.2 mmol/L (3.3-5.1); Sodium 144 mmol/L (135-145); Total Protein 6.1 g/dL (6.5-8.0)
[2021-10-01 06:14] LABS: Procalcitonin 7.19 ng/mL
--- NOTE | 2021-10-01 07:14 | P.PNCC_ITS ---
Subjective Subjective Date of Service: 10/01/21 Interval History: 61-year-old morbidly obese type 2 diabetic hypertensive and hyperlipidemic who presents with hypoxemic respiratory failure has what appears to be community- acquired pneumonia with at least a right lower lobe consolidation and and/or atelectasis possibly also multilobar with some left-sided involvement empirically placed on Zithromax and ceftriaxone on the floor is also known to have obstructive sleep apnea cardiac arrest of unknown origin 20 minute resuscitation with in or along with intubation mental status clearly in question although he does awaken the no with you in a pressure or significant touch but no demonstration of cognitive function just yet and today pending CT scan in EEG and my bedside echo did does demonstrate preserved LV and RV size and function without evidence of segmental wall motion abnormality and no primary valve or pericardial disease ejection fraction at least 55% currently off all pressors and maintaining pressure of 148/70 sinus rhythm rate [address]-T changes oxygen saturation 95% but on FiO2 of 80% and a PEEP of [address] of the chest shows dense bilateral bibasilar consolidations-given the arrest situation quite possibly a nosocomial aspiration so I am switching him from Rocephin to Unasyn Head CT scan is unchanged no acute issues Very slowly repairing renal insufficiency Central venous pressure reading was approximately 10 without evidence of peripheral edema so I do not believe that elevated volume is playing a role any longer Critical Care Time (minutes): 60 Physical Exam Vital Signs: Vital Signs: Last Vital Signs Temp 99.9 F 10/01/21 06:00 Pulse 63 10/01/21 06:00 Resp 18 10/01/21 06:00 BP 132/69 10/01/21 06:00 Pulse Ox 93 10/01/21 06:00 Oxygen Flow Rate 4 09/28/21 11:25 BMI result Body Mass Index 41.9 Somewhat hypertensive with CVP of 10 but he did awaken to the stimulation of doing an echocardiogram Urine output is adequate so he is non oliguric and slowly improving BUN and creatinine Abdomen is soft nontender no organomegaly Skin color normal no livedo Cardiac exam by bedside echo with normal LV and RV might be some hyper hypokin etic in the free wall with good apical kinase this but no primary valve or pericardial disease Objective Data Labs CBC & Chem 7: 10/01/21 05:15 10/01/21 05:15 Labs: Laboratory Results - last 24 hr 09/28/21 09/30/21 09/30/21 16:16 11:51 16:04 WBC RBC Hgb Hct MCV MCH MCHC RDW Plt Count MPV Immature Gran % (Auto) Neut % (Auto) Lymph % (Auto) [place] % (Auto) Eos % (Auto) Baso % (Auto) Lymph # (Auto) [place] # (Auto) Eos # (Auto) Baso # (Auto) Abs Immat Gran (auto) Absolute Neuts (auto) Absolute Nucleated RBC Nucleated RBC % (auto) VBG pH VBG pCO2 VBG pO2 VBG HCO3 VBG O2 Saturation VBG Base Excess Sodium Potassium Chloride Carbon Dioxide Anion Gap BUN Creatinine Estim Creat Clear Calc Estimated GFR POC Glucose 204 H 145 H Random Glucose Lactic Acid Calcium Phosphorus Magnesium Total Bilirubin AST ALT Alkaline Phosphatase Ammonia B-Natriuretic Peptide Total Protein Albumin Procalcitonin Hep Bs Antigen Negative Hep Bs Antibody REACTIVE Hep B Core Total Ab Nonreactive Hepatitis C Ab (EIA) Nonreactive 09/30/21 09/30/21 10/01/21 18:29 20:46 05:12 WBC RBC Hgb Hct MCV MCH MCHC RDW Plt Count MPV Immature Gran % (Auto) Neut % (Auto) Lymph % (Auto) [place] % (Auto) Eos % (Auto) Baso % (Auto) Lymph # (Auto) [place] # (Auto) Eos # (Auto) Baso # (Auto) Abs Immat Gran (auto) Absolute Neuts (auto) Absolute Nucleated RBC Nucleated RBC % (auto) VBG pH 7.41 VBG pCO2 46 VBG pO2 57 VBG HCO3 30 H VBG O2 Saturation 83.0 VBG Base Excess 5.2 Sodium Potassium Chloride Carbon Dioxide Anion Gap BUN Creatinine Estim Creat Clear Calc Estimated GFR POC Glucose 169 H Random Glucose Lactic Acid Calcium Phosphorus Magnesium Total Bilirubin AST ALT Alkaline Phosphatase Ammonia 43 B-Natriuretic Peptide Total Protein Albumin Procalcitonin Hep Bs Antigen Hep Bs Antibody Hep B Core Total Ab Hepatitis C Ab (EIA) 10/01/21 10/01/21 10/01/21 05:15 05:15 05:15 WBC 16.4 H RBC 3.53 L Hgb 10.2 L Hct 32.4 L MCV 91.8 MCH 28.9 MCHC 31.5 RDW 15.1 Plt Count 189 MPV 10.0 Immature Gran % (Auto) 2.3 H Neut % (Auto) 84.4 H Lymph % (Auto) 6.4 L [place] % (Auto) 6.8 Eos % (Auto) 0.0 Baso % (Auto) 0.1 Lymph # (Auto) 1.0 L [place] # (Auto) 1.1 Eos # (Auto) 0.0 Baso # (Auto) 0.0 Abs Immat Gran (auto) 0.38 H Absolute Neuts (auto) 13.8 H Absolute Nucleated RBC 0.000 Nucleated RBC % (auto) 0.0 VBG pH VBG pCO2 VBG pO2 VBG HCO3 VBG O2 Saturation VBG Base Excess Sodium 144 Potassium 4.2 Chloride 106 Carbon Dioxide 27 Anion Gap 15 BUN 64 H Creatinine 2.43 H Estim Creat Clear Calc 35.7 Estimated GFR 27 POC Glucose Random Glucose 117 H D Lactic Acid Calcium 9.0 Phosphorus 3.1 Magnesium 2.3 Total Bilirubin 1.6 H AST 204 H ALT 307 H Alkaline Phosphatase 102 D Ammonia B-Natriuretic Peptide 610 H Total Protein 6.1 L Albumin 2.9 L Procalcitonin Hep Bs Antigen Hep Bs Antibody Hep B Core Total Ab Hepatitis C Ab (EIA) 10/01/21 10/01/21 05:16 05:16 WBC RBC Hgb Hct MCV MCH MCHC RDW Plt Count MPV Immature Gran % (Auto) Neut % (Auto) Lymph % (Auto) [place] % (Auto) Eos % (Auto) Baso % (Auto) Lymph # (Auto) [place] # (Auto) Eos # (Auto) Baso # (Auto) Abs Immat Gran (auto) Absolute Neuts (auto) Absolute Nucleated RBC Nucleated RBC % (auto) VBG pH VBG pCO2 VBG pO2 VBG HCO3 VBG O2 Saturation VBG Base Excess Sodium Potassium Chloride Carbon Dioxide Anion Gap BUN Creatinine Estim Creat Clear Calc Estimated GFR POC Glucose Random Glucose Lactic Acid 1.0 Calcium Phosphorus Magnesium Total Bilirubin AST ALT Alkaline Phosphatase Ammonia B-Natriuretic Peptide Total Protein Albumin Procalcitonin 7.19 Hep Bs Antigen Hep Bs Antibody Hep B Core Total Ab Hepatitis C Ab (EIA) Microbiology Microbiology Results: Microbiology 09/28/21 13:00 Blood - Venous Blood Culture - Preliminary No growth after 48 hours. 09/28/21 13:00 Blood - Venous Blood Culture - Preliminary No growth after 48 hours. 09/29/21 Unknown Urine clean catch - Clean Catch Midstream Urine Culture - Final No growth. 09/29/21 05:10 Sputum - Suctioned Gram Stain - Final Progress Note: A&P Assessment and plan (1) CKD (chronic kidney disease) stage 3, GFR 30-59 ml/min: Status: Acute (2) Liver cirrhosis: Status: Acute (3) Hyponatremia: Status: Acute (4) Lactic acidosis: Status: Acute (5) Community acquired pneumonia: Status: Acute (6) Sepsis: Status: Acute (7) Dyspnea: Status: Acute (8) DARRIAN (obstructive sleep apnea): Status: Acute (9) Acute renal failure: Status: Acute (10) Aspiration pneumonia: Status: Acute (11) Cardiac arrest due to other underlying condition: Status: Acute Plan Will continue to feed via a NG tube and because of nosocomial aspiration will change Rocephin to Unasyn and then watch for fever response and FiO2 to determine need for anti staphylococcal Quality Stroke Does the patient have a stroke diagnosis?: No VTE Prior VTE?: No VTE Risk Level:: Medical - moderate - high VTE Device Contraindication: N/A - Device Ordered VTE Drug Contraindication: Treatment Not Indicated
--- NOTE | 2021-10-01 07:30 | CA_ITS ---
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 The calculated ejection fraction is 61% by biplane method. - No obvious valvular pathology seen on this study. Findings Procedure Information Contrast agent, definity, is being given per protocol without apparent complications. Left Ventricle Normal left ventricular cavity size. There is mildly increased left ventricular wall thickness. The left ventricular systolic function is normal. The calculated ejection fraction is 61% by biplane method. There is no evidence of regional wall motion abnormalities. Diastolic function is indeterminate on the basis of available data. Right Ventricle Normal right ventricular cavity size and systolic function. Atria The left atrium is moderately dilated. The right atrium is normal in size. Aortic Valve The aortic valve was not well visualized. There is no aortic valve stenosis. The mean gradient is 7 mmHg. There is no aortic valve regurgitation. Mitral Valve The mitral valve appears normal. There is no mitral valve regurgitation. There is no mitral valve stenosis. Pulmonic Valve The pulmonic valve is likely normal. Tricuspid Valve There is trace tricuspid valve regurgitation. The pulmonary artery systolic pressure is normal. Great Vessels The asc aorta is normal in size. Venous The inferior vena cava is mildly dilated and collapses less than 50% with inspiration. (Intubated) Pericardium/Pleural There is a trivial pericardial effusion. Prior Study Comparison No significant change compared to prior study dated: 05/09/2021. Recommendations, Care & Conclusions No obvious valvular pathology seen on this study. Measurements 2D Linear Measurements IVSd: 1.25 0.6-0.9/0.6-1.0 cm LVIDd: 4.97 3.9-5.3/4.2-5.9 cm LVIDd Index: 2.40 2.4-3.2/2.2-3.1 cm/m2 LVIDs: 2.98 2.0-3.6 cm LVPWd: 1.20 0.7-1.1 cm Ao Root: 3.50 2.1-3.5 cm LA Diam: 4.00 2.7-3.8/3.0-4.0 cm LAIDs Index: 1.93 1.5-2.3 cm/m2 LV Mass: 297.19 67-162/88-224 g LV Mass Index: 143.57 43-95/49-115 g/m2 LVOT Diam: 2.00 3.0+(-)1.3 cm 2D Systolic Function EF 4C: 56.90 >55% EF 2C: 63.60 >55% EF BiP: 61.30 >55% Mitral Valve MV Pk E: 0.88 MV PK A: 0.99 MV Decel Time: 182.00 E/A: 0.90 E'Lateral: 7.51 E/E' Lat: 11.80 PHT: 53.00 MVA PHT: 4.15 Decel Corson: 4.84 Aortic Valve AoV Pk Javi: 1.90 AoV Mn Javi: 1.19 AoV VTI: 0.38 AoV Pk Grad: 14.00 Aov Mn Grad: 7.00 FREDRICK Cont.VTI: 2.12 LVOT LVOT Pk Javi: 1.20 LVOT Mn Javi: 0.85 LVOT VTI: 0.25 LVOT Pk Grad: 6.00 LVOT Mn Grad: 3.00 LVOT Diam: 2.00 LVOT Area: 3.14 Diastolic Function MV Pk E: 0.88 MV Pk A: 0.99 E/A: 0.90 E' Laterial: 7.51 E/E' Lat: 11.80 Right Ventricle TAPSE (mm): 20.80 TVS' Javi: 17.10 Tricuspid Valve TR Pk Javi: 1.80 TR Pk Grad: 13.00 RA Press: 15.00 RVSP: 28.00 Great Vessels Aorta Ao Root-2D: 3.50 2.0-3.7 cm Sinus of Valsalva: 3.50 2.0-3.5 cm Ao Asc: 3.20 2.1-3.4 cm Pulmonary Valve PV Pk Javi: 1.26 Peak PV Grad: 6.00 Updated in Other Vendor System with Status of Final Camilo Cano MD electronically signed on 10/01/2021 5:12:37 PM with status of Final
[2021-10-01] MEDS: Rocuronium Bromide 50 MG/5 ML VIAL IVPUSH (07:35)
[2021-10-01 08:05] LABS: Glucose, Whole Blood 111 mg/dL (60-115)
[2021-10-01] MEDS: Chlorhexidine Gluc Oral Rinse 15 ML MOUTHWASH BUCCAL ×3 (08:18→20:20)
[2021-10-01] MEDS: Thiamine HCL 100 MG TABLET OG-TUBE (08:18)
[2021-10-01] MEDS: Folic Acid 1 MG TABLET PO (08:18)
--- NOTE | 2021-10-01 09:45 | MHC.CLN ---
RE: CONSULT PT IS INTUBATED AND SEDATED WILL CHANGE DIET RX TO NPO RECOMMEND TF PROMOTE AT MAX GOAL RATE 40ML/HR WITH 30ML PROSOURCE BID VIA OG TUBE TO PROVIDE 960KCALS (1804KCALS WITH SEDATION; 24KCALS/KG), 90G PROTEIN (1.2G/KG), 805ML FREE WATER FROM FORMULA START FORMULA AT 20ML/HR AND INCREASE BY 10ML Q 4 HRS UNTIL MAX GOAL IS ACHIEVED MONITOR TOLERANCE, RESIDUALS AND MICHAEL BAHENA NOTED PROGNOSIS POOR AND FAMILY WITH ONGOING DISCUSSION OF GOALS OF CARE IF [address]RE[address] AND BUILDING STARTED; STOP TF
--- NOTE | 2021-10-01 10:00 | EEG_ITS ---
This is a 16-channel digital portable EEG performed in ICU. The patient is unresponsive, intubated and on propofol. I checked with the nursing and they said the propofol was not stopped for this tracing. Background EEG rhythm is low amplitude, somewhat theta to delta range with no obvious asymmetry, paroxysmal tendency, sharp waves or spikes. IMPRESSION: This EEG revealed severe bilateral slowing. As propofol would not stop, I cannot rule out any epileptic tendency or comment further about neurological status. If these issues are in question, EEG should be repeated and propofol should be stopped during the EEG. MD JOLANTA Khan/DANIELLA / [id number]
[2021-10-01 11:18] LABS: Glucose, Whole Blood 99 mg/dL (60-115)
[2021-10-01] MEDS: Ampicillin Sodium/Sulbactam Na 3 GM in 0.9 % Sodium Chloride 100 ML IV (12:50)
[2021-10-01] MEDS: Ketamine HCl 500 MG/5 ML VIAL 50 MG IVPUSH (14:13)
--- NOTE | 2021-10-01 14:39 | MHC.CM.PN ---
Pt continues care in ICU: presently having an EEG: intubated and on pressor support s/p cardiac arrest: MD notes indicate poor prognonis, family is opting for maximum care efforts. Prior notes indicate no HCP - CM to call PCP and check previous visit hx. At this time, d/c planning is not a priority but will be pursued when his medical condition improves
[2021-10-01] MEDS: Azithromycin 500 MG in 0.9 % Sodium Chloride 250 ML 125 MG IV (15:01)
[2021-10-01 16:13] LABS: Glucose, Whole Blood 87 mg/dL (60-115)
[2021-10-01] MEDS: vancomycin HCL 1,000 MG in 0.9 % Sodium Chloride 250 ML 270 MG IV (18:10)
[2021-10-01 20:14] LABS: Glucose, Whole Blood 108 mg/dL (60-115)
[2021-10-01 20:17] LABS: Anion Gap 10 (12-20); Blood Urea Nitrogen 52 mg/dL (9-16); Carbon Dioxide 31 mmol/L (22-29); Chloride 109 mmol/L (96-108); Estimated Glomerular Filt Rate 35; Glucose Random 100 mg/dL (60-115); Potassium 4.2 mmol/L (3.3-5.1); Sodium 146 mmol/L (135-145)
[2021-10-01] MEDS: LORazepam 2 MG/ML VIAL IVPUSH (22:43)
--- NOTE | 2021-10-01 23:29 | PM.CCN ---
Critical Care Event Note Summary Date of Service: 10/01/21 Code activated: No Narrative: This case had a high probability of a clinically significant, sudden, or life threatening deterioration of this patient's condition which required my full and direct attention, intervention and personal management. Pt bradycardic, with HR into the mid 40's, likely secondary to sedation. We lightened up the sedation, Propofol, from 50 mcg/kg/min to 30 mcg/kg/min. Shortly after, pt was dyssynchrnous with vent, desatted into the 60's, pt's eyes opened, dolls eyes, no response to my voice, no gag reflex with deep suctioning. Adjusted propofol to 35 mg/kg/min. We pushed 2mg IV ativan with good response, pt closed his eyes, became synchronous with the vent and sat's improved. HR also back into the 50's. Will continue to monitor, added prn of ativan for extra sedation to accomodate HR. Critical Care Time (minutes): 30 Critical Care Time Critical Care Time (minutes): 30
[2021-10-02] VITALS (32 sets, daily range): BP systolic 124–192; BP diastolic 57–90; PULSE 53–82; RESP 18–26; TEMP 34–39.1; O2SAT 86–97; BMI 42.9
[2021-10-02] MEDS: Heparin Sodium,Porcine 5,000 UNIT/ML VIAL 5000 UNIT SUBCUT ×3 (00:05→14:52)
[2021-10-02] MEDS: Ampicillin Sodium/Sulbactam Na 3 GM in 0.9 % Sodium Chloride 100 ML IV ×4 (00:09→18:00)
[2021-10-02] MEDS: propofoL 1,000 MG/100 ML VIAL 22.39 MG IVCONT ×3 (00:12→07:36)
[2021-10-02] MEDS: Albuterol/Iprat 2.5/0.5MG 3 ML AMPUL.NEB INHALE ×7 (00:36→23:20)
[2021-10-02] MEDS: fentaNYL citrate/NS 1,000 MCG/100 ML PLAST..BAG 15 MCG IVCONT ×2 (01:06→07:36)
[2021-10-02 02:14] LABS: Glucose, Whole Blood 142 mg/dL (60-115)
[2021-10-02] MEDS: LORazepam 2 MG/ML VIAL IVPUSH ×3 (02:15→19:18)
[2021-10-02 05:15] LABS: VBG Base Excess 4.6 mmol/L; VBG HCO3 28 mmol/L (22-26); VBG pCO2 40 mmHg; VBG pH 7.45 (7.32-7.43); VBG pO2 50 mmHg
[2021-10-02 05:24] LABS: Basophils Percent Auto 0.1 % (0-2); Eosinophils Absolute Auto 0.1 X10*3/uL (0.0-0.4); Eosinophils Percent Auto 0.6 % (0-4); Hematocrit 33.2 % (42.0-52.0); Hemoglobin 10.6 g/dl (14.0-18.0); Imm Gran Abs Auto 0.62 X10*3/uL (0.00-0.03); Imm Gran Pct Auto 5.4 % (0.0-0.4); Lymphocytes Absolute Auto 1.6 X10*3/uL (1.2-4.9); Lymphocytes Percent Auto 13.9 % (20-40); Mean Corpuscular HGB Conc 31.9 g/dl (31.0-36.0); Mean Corpuscular Hemoglobin 29.5 pg (27.0-33.0); Mean Corpuscular Volume 92.5 fL (80.0-98.0); Mean Platelet Volume 9.8 fL (9.4-12.4); Monocytes Percent Auto 8.5 % (2-11); Neutrophils Absolute Auto 8.2 x10*3/uL (2.0-8.3); Neutrophils Percent Auto 71.5 % (45-73); Platelet Count 183 X10*3/uL (160-400); Red Blood Count 3.59 X10*6/uL (4.60-5.80); Red Cell Distribution Width 15.2 % (11.0-16.0); SCAN SMEAR FLAG 1; White Blood Count 11.4 X10*3/uL (4.8-10.8)
[2021-10-02 05:26] LABS: Venous Blood Gas Refer to POC result
[2021-10-02 05:27] LABS: Ammonia 43 umol/L (13-55)
[2021-10-02 05:32] LABS: MANUAL DIFF FLAG SCAN
[2021-10-02 05:33] LABS: D Dimer High Sensitivity 647 NG/ML; SLIDE REVIEW VERIFIED
[2021-10-02 05:37] LABS: Alanine Aminotransferase 207 U/L (0-40); Albumin Level 2.9 g/dL (3.5-5.0); Alkaline Phosphatase 140 U/L (39-117); Anion Gap 9 (12-20); Aspartate Amino Transferase 99 U/L (5-37); Bilirubin Direct 0.9 mg/dL (0.0-0.5); Bilirubin Total 1.2 mg/dL (0.0-1.0); Blood Urea Nitrogen 45 mg/dL (9-16); Calcium 8.8 mg/dL (8.4-10.2); Carbon Dioxide 31 mmol/L (22-29); Chloride 106 mmol/L (96-108); Creatinine Clr Calc Pharmacy 52.6; Estimated Glomerular Filt Rate 42; Glucose Random 128 mg/dL (60-115); Magnesium 2.1 mg/dL (1.6-2.6); Phosphorus 2.5 mg/dL (2.7-4.5); Potassium 4.2 mmol/L (3.3-5.1); Sodium 142 mmol/L (135-145)
[2021-10-02 05:40] LABS: B Type Natriuretic Peptide 824 pg/mL (<100)
--- NOTE | 2021-10-02 05:57 | PC.NURSE ---
CARE ASSUMED 23:15..REMAINS TUBED/VENTED...PROPOFOL 35 MCG/KG/MIN & FENTANYL 150 MCG/HR...SEDATE/VENT SYNCHRONY PRESENT...RECEIVED ATIVAN 2 MG IV PRIOR TO ASSUMPTION OF CARE PER REPORT....SBP REMAINS ELEVATED 160'S-170'S....CVP 13-14...HIDALGO OUTPUT 80-100 CC/HR...TUBE FEEDS TITRATED TO GOAL OF 50 CC/HR...H20 120ml FLUSH Q4H...2AM MARKED VENT DYSYNCHRONY...EYES OPEN NO TRACKING..NO CORNELA REFLEX..PUPILS SLUGGISHLY REACTIVE...ARMS RIGID..MEDICATED WITH PRN ATIVAN WITH RETURN OF VENT SYNCHRONY...SINUS EFRAIN HR 50'S..NO ECTOPY...T-MAX 100.8 CORE...AM LABS REVIEWED WITH ICU PA
[2021-10-02] MEDS: 0.9 % Sodium Chloride Flush 3 ML SYRINGE IVFLUSH ×2 (07:36→14:52)
[2021-10-02] MEDS: Folic Acid 1 MG TABLET PO (07:52)
[2021-10-02] MEDS: Thiamine HCL 100 MG TABLET OG-TUBE (07:52)
[2021-10-02] MEDS: Chlorhexidine Gluc Oral Rinse 15 ML MOUTHWASH BUCCAL ×3 (07:53→20:59)
--- NOTE | 2021-10-02 09:56 | MHC.CLN ---
F/U PT IS INTUBATED AND SEDATED PT RECEIVING TF GLUCERNA AT MAX GOAL RATE 50 ML/HR AND 120ML OF FREE WATER FLUSHES Q 4HRS PROVIDES 1200KCALS, 50G PROTEIN, 1744 ML TOTAL FREE WATER FROM FORMULA AND FLUSHES RECOMMEND ADDING PROSOURCE TID TO PROVIDE AN ADDITIONAL 180KCALS, 45G PROTEIN (95G PROTEIN TOTAL; 1.25G/KG) RECOMMEND INCREASING FREE WATER FLUSHES TO 240ML Q 6 HRS TO PROVIDE 1984ML TOTAL WATER FROM FORMULA AND FLUSHES (26ML/KG) MONITOR TOLERANCE, RESIDUALS AND MICHAEL BAHENA NOTED PROGNOSIS POOR AND FAMILY WITH ONGOING DISCUSSION OF GOALS OF CARE IF DIE BAKER STARTED; STOP TF
[2021-10-02 11:33] LABS: Glucose, Whole Blood 143 mg/dL (60-115)
[2021-10-02] MEDS: Azithromycin 500 MG in 0.9 % Sodium Chloride 250 ML 125 MG IV (14:51)
--- NOTE | 2021-10-02 15:19 | PM.CCPN ---
Subjective Subjective Date of Service: 10/02/21 Interval History: 61-year-old morbidly obese type 2 diabetic hypertensive and hyperlipidemic known chronic alcoholic presents with altered mental status abdominal discomfort and hypoxic respiratory failure with bilateral lung infiltrates being treated for community-acquired pneumonia on the floor was also being given phenobarb and volume loading because of elevated lactate implying that he was also septic as well as pneumonia and there was an at this time 2700 cc later he was noted to become bradycardic and then asystolic and had a 20 minute resuscitation until spontaneous circulation was restored including a difficult airway but they noted pink frothy for his sputum the did not notice vomitus or food Since that time he he is rest slowly repairing his acute on chronic renal failure also decreasing FiO2 and minute ventilation requirements so there is a clinical improvement in his pneumonia for which we changed him to Unasyn in and vancomycin because of the nosocomial nature and and following his CVP which was 10 yesterday up to 13 14 today with positive intake and output so he will be given and a diuretic dose today but the off the sedation at this point now for about 8 hours and no signs of significant cognitive function Critical Care Time (minutes): 60 Physical Exam Vital Signs: Vital Signs: Last Vital Signs Temp 101.8 F H 10/02/21 15:00 Pulse 68 10/02/21 15:00 Resp 18 10/02/21 15:00 BP 144/67 H 10/02/21 15:00 Pulse Ox 93 10/02/21 15:00 Oxygen Flow Rate 4 09/28/21 11:25 BMI result Body Mass Index 42.9 No response to pain or to voice Skin is intact no livedo Bedside echocardiogram showing preserved ejection fraction 60% Chest with the bilateral diminished breath sounds Abdomen soft positive bowel sounds tolerating feedings no organomegaly Objective Data Labs CBC & Chem 7: 10/02/21 05:05 10/02/21 05:05 Labs: Laboratory Results - last 24 hr 10/01/21 10/01/21 10/01/21 16:11 19:55 20:11 WBC RBC Hgb Hct MCV MCH MCHC RDW Plt Count MPV Immature Gran % (Auto) Neut % (Auto) Lymph % (Auto) [place] % (Auto) Eos % (Auto) Baso % (Auto) Lymph # (Auto) [place] # (Auto) Eos # (Auto) Baso # (Auto) Abs Immat Gran (auto) Absolute Neuts (auto) Absolute Nucleated RBC Nucleated RBC % (auto) Smear Tech's Comments D-Dimer High Sensitivty VBG pH VBG pCO2 VBG pO2 VBG HCO3 VBG O2 Saturation VBG Base Excess Sodium 146 H Potassium 4.2 Chloride 109 H Carbon Dioxide 31 H Anion Gap 10 L BUN 52 H Creatinine 1.97 H Estim Creat Clear Calc 44.0 Estimated GFR 35 POC Glucose 87 108 Random Glucose 100 Calcium 9.0 Phosphorus Magnesium Total Bilirubin Direct Bilirubin AST ALT Alkaline Phosphatase Ammonia B-Natriuretic Peptide Total Protein Albumin 10/02/21 10/02/21 10/02/21 02:07 05:05 05:05 WBC 11.4 H RBC 3.59 L Hgb 10.6 L Hct 33.2 L MCV 92.5 MCH 29.5 MCHC 31.9 RDW 15.2 Plt Count 183 MPV 9.8 Immature Gran % (Auto) 5.4 H Neut % (Auto) 71.5 Lymph % (Auto) 13.9 L [place] % (Auto) 8.5 Eos % (Auto) 0.6 Baso % (Auto) 0.1 Lymph # (Auto) 1.6 [place] # (Auto) 1.0 Eos # (Auto) 0.1 Baso # (Auto) 0.0 Abs Immat Gran (auto) 0.62 H Absolute Neuts (auto) 8.2 Absolute Nucleated RBC 0.000 Nucleated RBC % (auto) 0.0 Smear Tech's Comments VERIFIED D-Dimer High Sensitivty 647 VBG pH VBG pCO2 VBG pO2 VBG HCO3 VBG O2 Saturation VBG Base Excess Sodium Potassium Chloride Carbon Dioxide Anion Gap BUN Creatinine Estim Creat Clear Calc Estimated GFR POC Glucose 142 H Random Glucose Calcium Phosphorus Magnesium Total Bilirubin Direct Bilirubin AST ALT Alkaline Phosphatase Ammonia B-Natriuretic Peptide Total Protein Albumin 10/02/21 10/02/21 10/02/21 05:05 05:05 05:05 WBC RBC Hgb Hct MCV MCH MCHC RDW Plt Count MPV Immature Gran % (Auto) Neut % (Auto) Lymph % (Auto) [place] % (Auto) Eos % (Auto) Baso % (Auto) Lymph # (Auto) [place] # (Auto) Eos # (Auto) Baso # (Auto) Abs Immat Gran (auto) Absolute Neuts (auto) Absolute Nucleated RBC Nucleated RBC % (auto) Smear Tech's Comments D-Dimer High Sensitivty VBG pH VBG pCO2 VBG pO2 VBG HCO3 VBG O2 Saturation VBG Base Excess Sodium 142 Potassium 4.2 Chloride 106 Carbon Dioxide 31 H Anion Gap 9 L BUN 45 H Creatinine 1.67 H Estim Creat Clear Calc 52.6 Estimated GFR 42 POC Glucose Random Glucose 128 H Calcium 8.8 Phosphorus 2.5 L Magnesium 2.1 Total Bilirubin 1.2 H Direct Bilirubin 0.9 H AST 99 H ALT 207 H Alkaline Phosphatase 140 H D Ammonia 43 B-Natriuretic Peptide 824 H Total Protein 6.0 L Albumin 2.9 L 10/02/21 10/02/21 05:06 11:28 WBC RBC Hgb Hct MCV MCH MCHC RDW Plt Count MPV Immature Gran % (Auto) Neut % (Auto) Lymph % (Auto) [place] % (Auto) Eos % (Auto) Baso % (Auto) Lymph # (Auto) [place] # (Auto) Eos # (Auto) Baso # (Auto) Abs Immat Gran (auto) Absolute Neuts (auto) Absolute Nucleated RBC Nucleated RBC % (auto) Smear Tech's Comments D-Dimer High Sensitivty VBG pH 7.45 H VBG pCO2 40 VBG pO2 50 VBG HCO3 28 H VBG O2 Saturation 78.0 VBG Base Excess 4.6 Sodium Potassium Chloride Carbon Dioxide Anion Gap BUN Creatinine Estim Creat Clear Calc Estimated GFR POC Glucose 143 H Random Glucose Calcium Phosphorus Magnesium Total Bilirubin Direct Bilirubin AST ALT Alkaline Phosphatase Ammonia B-Natriuretic Peptide Total Protein Albumin Microbiology Microbiology Results: Microbiology 10/01/21 14:44 Sputum - Suctioned Gram Stain - Final 10/01/21 14:44 Sputum - Suctioned Sputum Culture - Preliminary No growth to date. 09/29/21 05:10 Sputum - Suctioned Gram Stain - Final 09/29/21 05:10 Sputum - Suctioned Sputum Culture - Final No growth. 09/28/21 13:00 Blood - Venous Blood Culture - Preliminary No growth after 48 hours. 09/28/21 13:00 Blood - Venous Blood Culture - Preliminary No growth after 48 hours. 09/29/21 Unknown Urine clean catch - Clean Catch Midstream Urine Culture - Final No growth. Progress Note: A&P Assessment and plan (1) Cardiac arrest due to other underlying condition: Status: Acute (2) Aspiration pneumonia: Status: Acute (3) Acute renal failure: Status: Acute (4) CKD (chronic kidney disease) stage 3, GFR 30-59 ml/min: Status: Acute (5) Liver cirrhosis: Status: Acute (6) Hyponatremia: Status: Acute (7) Lactic acidosis: Status: Acute (8) Community acquired pneumonia: Status: Acute (9) Sepsis: Status: Acute (10) Dyspnea: Status: Acute (11) DARRIAN (obstructive sleep apnea): Status: Acute (12) Anoxic encephalopathy: Status: Acute (13) Morbid obesity due to excess calories: Status: Acute Plan The plan is to continue to support both by feeding following his CVP for fluid balance making sure that metabolically he is comfortable keeping him off sedation as we can in and hopefully observe for yazdanism of cognitive function so hopefully will be able to prognosticate in the next 48 hours Quality Stroke Does the patient have a stroke diagnosis?: No VTE Prior VTE?: No VTE Risk Level:: Medical - moderate - high VTE Device Contraindication: N/A - Device Ordered VTE Drug Contraindication: Treatment Not Indicated
[2021-10-02] MEDS: Potassium Chloride Packet 20 MEQ PACKET 40 MEQ PO (15:34)
[2021-10-02] MEDS: Furosemide 40 MG/4 ML VIAL IVPUSH (15:34)
[2021-10-02] MEDS: vancomycin HCL 1,000 MG in 0.9 % Sodium Chloride 250 ML 270 MG IV (17:08)
[2021-10-02 17:28] LABS: Glucose, Whole Blood 166 mg/dL (60-115)
[2021-10-02] MEDS: Insulin Lispro 100 UNIT/ML 3 ML VIAL SUBCUT (17:45)
--- NOTE | 2021-10-02 19:34 | EEG_ITS ---
This is a 16-channel EEG with an EKG lead. The patient is reported intubated and unresponsive during the tracing. Background EEG rhythm is mixed theta to delta, low to medium amplitude with no obvious asymmetry, paroxysmal tendency, or sharp wave activity. Cardiac lead does not reveal any significant abnormality. Hyperventilation and photic stimulation were not performed. IMPRESSION: Moderate to severe diffuse slowing suggestive of bihemispheric dysfunction, probably of metabolic toxic or anoxic type with no evidence of seizure disorder. MD JOLANTA Khan/DANIELLA / [id number]
[2021-10-02 23:49] LABS: Glucose, Whole Blood 129 mg/dL (60-115)
[2021-10-03] VITALS (31 sets, daily range): BP systolic 128–206; BP diastolic 61–108; PULSE 53–95; RESP 8–28; TEMP 34.2–38.8; O2SAT 89–96; BMI 42.9
[2021-10-03] MEDS: Heparin Sodium,Porcine 5,000 UNIT/ML VIAL 5000 UNIT SUBCUT ×4 (00:14→23:32)
[2021-10-03] MEDS: propofoL 1,000 MG/100 ML VIAL 19.19 MG IVCONT (00:16)
[2021-10-03] MEDS: Ampicillin Sodium/Sulbactam Na 3 GM in 0.9 % Sodium Chloride 100 ML IV ×4 (00:19→20:59)
[2021-10-03] MEDS: 0.9 % Sodium Chloride Flush 3 ML SYRINGE IVFLUSH ×3 (00:24→15:08)
--- NOTE | 2021-10-03 03:43 | PC.NURSE ---
Assumed care of patient at 19:00; maintained on Ac vent settings; desats into the 70's with repositioning but recovers quickly within 30 secs back up 90's. Was off sedation but patient was not in-synch with ventilator and propofol started at 30mcg/kg/hr with good effect. Ativan x 1 dose (2mg) given with good effect. patient responsive to name; does not follow command. SBP elevated to 160's prior to sedation restarted, came down to 140's. Right upper arm a-line intact with appropriate wave form. Line zero trimmed and calibrated per policy. CVP 15. monitor shows sinus Roberto [place] 50's since propofol; was 80's prior to propofol. Urine output >50cc/hr. T&R q 2hrs; no skin issues. rectal tube in place with moderate amount of liquid brown stool. Temp up 101.3 core, cool sponge bath given, temp down to 100.2. Seen at bedside by archie Richards PAC EEG order for AM. Plan to turn sedation off in AM.
[2021-10-03 03:58] LABS: Hepatitis A Antibody IgM 0.44 Index (0-0.79); ~Hepatitis A Antibody IgM Nonreactive (Nonreactive)
[2021-10-03] MEDS: Albuterol/Iprat 2.5/0.5MG 3 ML AMPUL.NEB INHALE ×5 (04:58→20:55)
[2021-10-03 05:12] LABS: VBG Base Excess 7.8 mmol/L; VBG HCO3 32 mmol/L (22-26); VBG pCO2 46 mmHg; VBG pH 7.45 (7.32-7.43); VBG pO2 48 mmHg
[2021-10-03 05:32] LABS: Venous Blood Gas Refer to POC result
[2021-10-03 05:35] LABS: Hematocrit 33.2 % (42.0-52.0); Hemoglobin 10.5 g/dl (14.0-18.0); Mean Corpuscular HGB Conc 31.6 g/dl (31.0-36.0); Mean Corpuscular Hemoglobin 29.1 pg (27.0-33.0); Mean Platelet Volume 10.1 fL (9.4-12.4); Platelet Count 193 X10*3/uL (160-400); Red Blood Count 3.61 X10*6/uL (4.60-5.80); Red Cell Distribution Width 15.2 % (11.0-16.0); White Blood Count 10.6 X10*3/uL (4.8-10.8)
[2021-10-03 05:52] LABS: D Dimer High Sensitivity 669 NG/ML
[2021-10-03 05:54] LABS: B Type Natriuretic Peptide 866 pg/mL (<100)
[2021-10-03 05:58] LABS: Alanine Aminotransferase 141 U/L (0-40); Albumin Level 2.8 g/dL (3.5-5.0); Alkaline Phosphatase 171 U/L (39-117); Anion Gap 13 (12-20); Aspartate Amino Transferase 56 U/L (5-37); Bilirubin Direct 0.9 mg/dL (0.0-0.5); Bilirubin Total 1.2 mg/dL (0.0-1.0); Blood Urea Nitrogen 35 mg/dL (9-16); Calcium 8.9 mg/dL (8.4-10.2); Carbon Dioxide 32 mmol/L (22-29); Chloride 102 mmol/L (96-108); Creatinine Clr Calc Pharmacy 60.5; Estimated Glomerular Filt Rate 50; Glucose Random 122 mg/dL (60-115); Magnesium 1.9 mg/dL (1.6-2.6); Phosphorus 3.3 mg/dL (2.7-4.5); Potassium 4.2 mmol/L (3.3-5.1); Sodium 143 mmol/L (135-145)
[2021-10-03 06:14] LABS: Glucose, Whole Blood 125 mg/dL (60-115)
[2021-10-03 06:19] LABS: Band Neutrophils Percent 4 % (3-5); Eosinophils Absolute Manual 0.4 X10*3/uL (0.0-0.4); Eosinophils Percent Manual 4 % (0-4); Lymphocytes Absolute Manual 1.4 X10*3/uL (1.2-4.9); Lymphocytes Percent Manual 13 % (20-40); Macrocytosis 1+ (5-14) /OIF; Microcytosis 1+ (5-14) /OIF; Monocytes Absolute Manual 0.7 X10*3/uL (0.1-1.2); Monocytes Percent Manual 7 % (2-11); Myelocytes Absolute 0.1 X10*/uL; Myelocytes Percent 1 %; Neutrophils Percent Manual 71 % (45-73); Platelet Estimate SLIGHTLY DECREASED (NORMAL); Platelet Morphology Comment NORMAL; Polychromasia 1+ (0-2) /OIF; RBC Morphology NOTED; Smudge Cells PRESENT; Target Cells 1+ (5-14) /OIF; Tear Drop Cells 1+ (0-2) /OIF
[2021-10-03] MEDS: Chlorhexidine Gluc Oral Rinse 15 ML MOUTHWASH BUCCAL ×3 (07:28→20:59)
[2021-10-03] MEDS: Thiamine HCL 100 MG TABLET OG-TUBE (07:29)
[2021-10-03] MEDS: Folic Acid 1 MG TABLET PO (07:29)
--- NOTE | 2021-10-03 08:37 | PHA.PROG ---
Admission Date/Time: September 28, 2021 15:33 Indication: Weight in k.9 kg Adjusted body weight in Kg: [place] body weight in Kg: Obesity Dosing Indication % IBW: OBESE MODEL USED FOR PREDICTIONS Serum Creatinine - Last 168 Hours 09/28/21 09/29/21 09/29/21 11:46 02:38 05:10 Creatinine 1.69 H 3.47 H 3.23 H 09/29/21 09/30/21 10/01/21 11:50 05:05 05:15 Creatinine 3.17 H 3.16 H 2.43 H 10/01/21 10/02/21 10/03/21 19:55 05:05 05:05 Creatinine 1.97 H 1.67 H 1.45 H Estimated CrCl and GFR - Last 168 Hours 09/28/21 09/29/21 09/29/21 11:46 02:38 05:10 Estim Creat Clear Calc 51.1 24.8 26.7 Estimated GFR 42 18 20 09/29/21 09/30/21 10/01/21 11:50 05:05 05:15 Estim Creat Clear Calc 27.2 27.4 35.7 Estimated GFR 20 20 27 10/01/21 10/02/21 10/03/21 19:55 05:05 05:05 Estim Creat Clear Calc 44.0 52.6 60.5 Estimated GFR 35 42 50 Vancomycin Loading Dose: Current Vancomycin Dosing Regimen: 1000 mg Q24h Vancomycin Monitoring using AUC goal of 400 - 600 range with trough as surrogate marker:Predicting a AUC of 423 and a trough of 11.3. Date and Time for next Vancomycin Level to be drawn: 10/03 @ 1600 Pharmacist Comments on Vancomycin Plan: Will continue to monitor renal function and will adjust regimen after first random trough. Vancomycin dosing will take advantage of [employer] as a clinical decision support tool that uses Bayesian modeling to calculate individual patient's pharmacokinetic parameters and forecast the patient's drug concentration time course with the target goal AUC 24 range of 400 - 600 mg/L/hr.
--- NOTE | 2021-10-03 10:13 | MHC.CLN ---
F/U PT REMAINS INTUBATED AND SEDATED PT RECEIVING TF GLUCERNA AT MAX GOAL RATE 50 ML/HR WITH PROSOURCE TID AND 240ML OF FREE WATER FLUSHES Q 6HRS PROVIDES 1380KCALS, 95G TOTAL PROTEIN (1.25G/KG), 1984 ML TOTAL FREE WATER FROM FORMULA AND FLUSHES (26ML/KG) MONITOR TOLERANCE, RESIDUALS AND LYTES
[2021-10-03 12:05] LABS: Glucose, Whole Blood 142 mg/dL (60-115)
--- NOTE | 2021-10-03 14:40 | MHC.CM.PN ---
Per discussion with MD at rounds today: pt remains on ventilatory support following cardiac resuscitation. Sedation holiday for completion of repeat EEG. This will allow for better assessment of neuro function. At this time, pt is not responsive to stimuli- cannot track or follow any command but with some minor reaction noted to pain. Pt's brother from [place] in room visiting - no HCP or any advanced directives on file, with family or PCP. CM to follow for finalization of d/c plan which will depend on pt's progress. Likely, pt will require a Peg/Trach for LTAC should he not regain neuro fx and family opts for continued care. Will await results of studies.
[2021-10-03] MEDS: Azithromycin 500 MG in 0.9 % Sodium Chloride 250 ML 125 MG IV (15:08)
--- NOTE | 2021-10-03 15:30 | P.PNCC_ITS ---
Subjective Subjective Date of Service: 10/03/21 Interval History: 61-year-old morbidly obese individual type 2 diabetic hypertensive chronic alcoholic admitted with hypoxic respiratory failure due to what seem to be community-acquired pneumonia with bibasilar infiltrates and despite the elevated BNP because of what appear to be septic criteria including a mildly elevated lactate of wall of 2.8 patient was fluid overloaded then all of a sudden noted to be bradycardic and then asystolic and required 20 minute resuscitation to restore spontaneous circulation that a course included intubation and they took note of pink foamy sputum not vomitus or food Acute transaminitis is healing the acute renal failure is healing cardiac systolic function is well preserved without segmental wall motion abnormality an EEG still indicating encephalopathy no evidence of nonconvulsive status epilep ticus Critical Care Time (minutes): 45 Physical Exam Vital Signs: Vital Signs: Last Vital Signs Temp 101.5 F H 10/03/21 15:00 Pulse 89 10/03/21 15:00 Resp 23 H 10/03/21 15:00 BP 189/88 H 10/03/21 15:00 Pulse Ox 95 10/03/21 15:00 Oxygen Flow Rate 4 09/28/21 11:25 BMI result Body Mass Index 42.9 Still no cognitive function just eye opening and spontaneous movement of all 4 extremities Cardiac exam by bedside echo as above Lungs with scattered coarse rales but bilaterally no other adventitious sounds Abdomen is soft no organomegaly tolerating feedings Objective Data Labs CBC & Chem 7: 10/03/21 05:05 10/03/21 05:05 Labs: Laboratory Results - last 24 hr 09/28/21 10/02/21 10/02/21 16:16 17:24 23:45 WBC RBC Hgb Hct MCV MCH MCHC RDW Plt Count MPV Immature Gran % (Auto) Neut % (Auto) Lymph % (Auto) [place] % (Auto) Eos % (Auto) Baso % (Auto) Lymph # (Auto) [place] # (Auto) Eos # (Auto) Baso # (Auto) Abs Immat Gran (auto) Absolute Neuts (auto) Absolute Nucleated RBC Nucleated RBC % (auto) Neutrophils % (Manual) Band Neutrophils % Lymphocytes % (Manual) Monocytes % (Manual) Eosinophils % (Manual) Myelocytes % Abs Neuts (Manual) Lymphocytes # (Manual) Monocytes # (Manual) Eosinophils # (Manual) Myelocytes # Smudge Cells Platelet Estimate Plt Morphology Comment RBC Morphology Polychromasia Microcytosis Macrocytosis Target Cells Tear Drop Cells D-Dimer High Sensitivty VBG pH VBG pCO2 VBG pO2 VBG HCO3 VBG O2 Saturation VBG Base Excess Sodium Potassium Chloride Carbon Dioxide Anion Gap BUN Creatinine Estim Creat Clear Calc Estimated GFR POC Glucose 166 H 129 H Random Glucose Calcium Phosphorus Magnesium Total Bilirubin Direct Bilirubin AST ALT Alkaline Phosphatase B-Natriuretic Peptide Total Protein Albumin Hepatitis A IgM Ab Nonreactive 10/03/21 10/03/21 10/03/21 05:03 05:05 05:05 WBC 10.6 RBC 3.61 L Hgb 10.5 L Hct 33.2 L MCV 92.0 MCH 29.1 MCHC 31.6 RDW 15.2 Plt Count 193 MPV 10.1 Immature Gran % (Auto) Cancelled Neut % (Auto) Cancelled Lymph % (Auto) Cancelled [place] % (Auto) Cancelled Eos % (Auto) Cancelled Baso % (Auto) Cancelled Lymph # (Auto) Cancelled [place] # (Auto) Cancelled Eos # (Auto) Cancelled Baso # (Auto) Cancelled Abs Immat Gran (auto) Cancelled Absolute Neuts (auto) Cancelled Absolute Nucleated RBC 0.000 Nucleated RBC % (auto) 0.0 Neutrophils % (Manual) 71 Band Neutrophils % 4 Lymphocytes % (Manual) 13 L Monocytes % (Manual) 7 Eosinophils % (Manual) 4 Myelocytes % 1 Abs Neuts (Manual) 8.0 Lymphocytes # (Manual) 1.4 Monocytes # (Manual) 0.7 Eosinophils # (Manual) 0.4 Myelocytes # 0.1 Smudge Cells PRESENT Platelet Estimate SLIGHTLY DECREASED Plt Morphology Comment NORMAL RBC Morphology NOTED Polychromasia 1+ (0-2) Microcytosis 1+ (5-14) Macrocytosis 1+ (5-14) Target Cells 1+ (5-14) Tear Drop Cells 1+ (0-2) D-Dimer High Sensitivty 669 VBG pH 7.45 H VBG pCO2 46 VBG pO2 48 VBG HCO3 32 H VBG O2 Saturation 74.0 VBG Base Excess 7.8 Sodium Potassium Chloride Carbon Dioxide Anion Gap BUN Creatinine Estim Creat Clear Calc Estimated GFR POC Glucose Random Glucose Calcium Phosphorus Magnesium Total Bilirubin Direct Bilirubin AST ALT Alkaline Phosphatase B-Natriuretic Peptide Total Protein Albumin Hepatitis A IgM Ab 10/03/21 10/03/2110/03/22 05:05 05:05 06:10 WBC RBC Hgb Hct MCV MCH MCHC RDW Plt Count MPV Immature Gran % (Auto) Neut % (Auto) Lymph % (Auto) [place] % (Auto) Eos % (Auto) Baso % (Auto) Lymph # (Auto) [place] # (Auto) Eos # (Auto) Baso # (Auto) Abs Immat Gran (auto) Absolute Neuts (auto) Absolute Nucleated RBC Nucleated RBC % (auto) Neutrophils % (Manual) Band Neutrophils % Lymphocytes % (Manual) Monocytes % (Manual) Eosinophils % (Manual) Myelocytes % Abs Neuts (Manual) Lymphocytes # (Manual) Monocytes # (Manual) Eosinophils # (Manual) Myelocytes # Smudge Cells Platelet Estimate Plt Morphology Comment RBC Morphology Polychromasia Microcytosis Macrocytosis Target Cells Tear Drop Cells D-Dimer High Sensitivty VBG pH VBG pCO2 VBG pO2 VBG HCO3 VBG O2 Saturation VBG Base Excess Sodium 143 Potassium 4.2 Chloride 102 Carbon Dioxide 32 H Anion Gap 13 BUN 35 H Creatinine 1.45 H Estim Creat Clear Calc 60.5 Estimated GFR 50 POC Glucose 125 H Random Glucose 122 H Calcium 8.9 Phosphorus 3.3 Magnesium 1.9 Total Bilirubin 1.2 H Direct Bilirubin 0.9 H AST 56 H ALT 141 H Alkaline Phosphatase 171 H D B-Natriuretic Peptide 866 H Total Protein 6.0 L Albumin 2.8 L Hepatitis A IgM Ab 10/03/21 12:02 WBC RBC Hgb Hct MCV MCH MCHC RDW Plt Count MPV Immature Gran % (Auto) Neut % (Auto) Lymph % (Auto) [place] % (Auto) Eos % (Auto) Baso % (Auto) Lymph # (Auto) [place] # (Auto) Eos # (Auto) Baso # (Auto) Abs Immat Gran (auto) Absolute Neuts (auto) Absolute Nucleated RBC Nucleated RBC % (auto) Neutrophils % (Manual) Band Neutrophils % Lymphocytes % (Manual) Monocytes % (Manual) Eosinophils % (Manual) Myelocytes % Abs Neuts (Manual) Lymphocytes # (Manual) Monocytes # (Manual) Eosinophils # (Manual) Myelocytes # Smudge Cells Platelet Estimate Plt Morphology Comment RBC Morphology Polychromasia Microcytosis Macrocytosis Target Cells Tear Drop Cells D-Dimer High Sensitivty VBG pH VBG pCO2 VBG pO2 VBG HCO3 VBG O2 Saturation VBG Base Excess Sodium Potassium Chloride Carbon Dioxide Anion Gap BUN Creatinine Estim Creat Clear Calc Estimated GFR POC Glucose 142 H Random Glucose Calcium Phosphorus Magnesium Total Bilirubin Direct Bilirubin AST ALT Alkaline Phosphatase B-Natriuretic Peptide Total Protein Albumin Hepatitis A IgM Ab Microbiology Microbiology Results: Microbiology 09/28/21 13:00 Blood - Venous Blood Culture - Final No growth after 5 days. 09/28/21 13:00 Blood - Venous Blood Culture - Final No growth after 5 days. 10/01/21 14:44 Sputum - Suctioned Gram Stain - Final 10/01/21 14:44 Sputum - Suctioned Sputum Culture - Final No growth. 09/29/21 05:10 Sputum - Suctioned Gram Stain - Final 09/29/21 05:10 Sputum - Suctioned Sputum Culture - Final No growth. 09/29/21 Unknown Urine clean catch - Clean Catch Midstream Urine Culture - Final No growth. Progress Note: A&P Assessment and plan (1) Morbid obesity due to excess calories: Status: Acute (2) Anoxic encephalopathy: Status: Acute (3) Cardiac arrest due to other underlying condition: Status: Acute (4) Aspiration pneumonia: Status: Acute (5) Acute renal failure: Status: Acute (6) CKD (chronic kidney disease) stage 3, GFR 30-59 ml/min: Status: Acute (7) Liver cirrhosis: Status: Acute (8) Hyponatremia: Status: Acute (9) Lactic acidosis: Status: Acute (10) Community acquired pneumonia: Status: Acute (11) Sepsis: Status: Acute (12) Dyspnea: Status: Acute (13) DARRIAN (obstructive sleep apnea): Status: Acute Plan The plan is still to support him and and 2 wait and watch him and keep him off sedation as much as we can to be able to assess for cognitive function being res tored Quality Stroke Does the patient have a stroke diagnosis?: No VTE Prior VTE?: No VTE Risk Level:: Medical - moderate - high VTE Device Contraindication: N/A - Device Ordered VTE Drug Contraindication: Treatment Not Indicated
[2021-10-03] MEDS: Potassium Chloride Packet 20 MEQ PACKET 40 MEQ PO (16:29)
[2021-10-03] MEDS: Furosemide 40 MG/4 ML VIAL IVPUSH (16:29)
[2021-10-03 16:44] LABS: Vancomycin Trough 5.6 mcg/mL (10.0-20.0)
[2021-10-03 18:04] LABS: Glucose, Whole Blood 196 mg/dL (60-115)
[2021-10-03] MEDS: Insulin Lispro 100 UNIT/ML 3 ML VIAL SUBCUT ×2 (18:09→23:51)
[2021-10-03] MEDS: vancomycin HCL 750 MG in 0.9 % Sodium Chloride 250 ML 265 MG IV (18:09)
--- NOTE | 2021-10-03 18:42 | PC.NURSE ---
SEDATION HAS REMAINED OFF SINCE 630. EEG PERFORMED. PATIENT ATTEMPTS TO FOLLOW COMMANDS WITH CINDER CRANE OPERATOR. ABLE TO WIGGLE TOES AND ATTEMPTS TO NOD YES OR NO. OCCASIONALLY TURNS HEAD TOWARDS SOUND/NAME CALLED, BUT CONTINUES TO STARE AT THE CEILING. CVP 14 - LASIX 40 NICA IVP ADMINISTERED. TMAX 101.7. MD AWARE OF SBP 160-200.
[2021-10-03] MEDS: LORazepam 2 MG/ML VIAL IVPUSH (20:39)
[2021-10-03 23:47] LABS: Glucose, Whole Blood 182 mg/dL (60-115)
[2021-10-03] MEDS: Furosemide 20 MG/2 ML VIAL IVPUSH (23:51)
[2021-10-04] VITALS (36 sets, daily range): BP systolic 120–183; BP diastolic 62–96; PULSE 70–95; RESP 18–38; TEMP 34.8–39.1; O2SAT 91–98
[2021-10-04] MEDS: Ampicillin Sodium/Sulbactam Na 3 GM in 0.9 % Sodium Chloride 100 ML IV ×2 (00:02→06:03)
[2021-10-04] MEDS: Albuterol/Iprat 2.5/0.5MG 3 ML AMPUL.NEB INHALE ×6 (00:06→20:28)
[2021-10-04] MEDS: fentaNYL citrate/PF 100 MCG/2 ML VIAL IVPUSH (00:31)
[2021-10-04] MEDS: LORazepam 2 MG/ML VIAL IVPUSH ×2 (00:41→17:14)
[2021-10-04 05:21] LABS: VBG Base Excess 8.3 mmol/L; VBG HCO3 32 mmol/L (22-26); VBG pCO2 40 mmHg; VBG pO2 46 mmHg
[2021-10-04 05:24] LABS: Glucose, Whole Blood 183 mg/dL (60-115)
[2021-10-04 05:26] LABS: Hematocrit 35.1 % (42.0-52.0); Hemoglobin 11.3 g/dl (14.0-18.0); Mean Corpuscular HGB Conc 32.2 g/dl (31.0-36.0); Mean Corpuscular Hemoglobin 29.7 pg (27.0-33.0); Mean Corpuscular Volume 92.1 fL (80.0-98.0); Mean Platelet Volume 9.7 fL (9.4-12.4); Platelet Count 232 X10*3/uL (160-400); Red Blood Count 3.81 X10*6/uL (4.60-5.80); White Blood Count 12.4 X10*3/uL (4.8-10.8)
[2021-10-04 05:28] LABS: Venous Blood Gas Refer to POC result
[2021-10-04 05:33] LABS: D Dimer High Sensitivity 911 NG/ML
[2021-10-04] MEDS: Insulin Lispro 100 UNIT/ML 3 ML VIAL SUBCUT ×2 (05:33→17:47)
[2021-10-04] MEDS: vancomycin HCL 750 MG in 0.9 % Sodium Chloride 250 ML 265 MG IV (05:34)
[2021-10-04 05:44] LABS: B Type Natriuretic Peptide 950 pg/mL (<100)
[2021-10-04 05:46] LABS: Alanine Aminotransferase 110 U/L (0-40); Albumin Level 3.2 g/dL (3.5-5.0); Alkaline Phosphatase 211 U/L (39-117); Anion Gap 14 (12-20); Aspartate Amino Transferase 51 U/L (5-37); Bilirubin Total 1.4 mg/dL (0.0-1.0); Blood Urea Nitrogen 34 mg/dL (9-16); Calcium 9.3 mg/dL (8.4-10.2); Carbon Dioxide 32 mmol/L (22-29); Chloride 99 mmol/L (96-108); Creatinine Clr Calc Pharmacy 56.3; Estimated Glomerular Filt Rate 46; Glucose Random 177 mg/dL (60-115); Magnesium 1.9 mg/dL (1.6-2.6); Phosphorus 3.4 mg/dL (2.7-4.5); Potassium 4.2 mmol/L (3.3-5.1); Sodium 141 mmol/L (135-145); Total Protein 6.9 g/dL (6.5-8.0)
[2021-10-04 05:52] LABS: Band Neutrophils Percent 2 % (3-5); Eosinophils Absolute Manual 0.1 X10*3/uL (0.0-0.4); Eosinophils Percent Manual 1 % (0-4); Lymphocytes Absolute Manual 1.4 X10*3/uL (1.2-4.9); Lymphocytes Percent Manual 11 % (20-40); Monocytes Absolute Manual 0.6 X10*3/uL (0.1-1.2); Monocytes Percent Manual 5 % (2-11); Neutrophils Absolute Manual 10.3 X10*3/uL (2.0-8.3); Neutrophils Percent Manual 81 % (45-73)
[2021-10-04 05:53] LABS: Dohle Bodies PRESENT; Large Platelet PRESENT; Macrocytosis 1+ (5-14) /OIF; Platelet Estimate NORMAL (NORMAL); Platelet Morphology Comment NORMAL; Polychromasia 1+ (0-2) /OIF; RBC Morphology NORMAL
[2021-10-04 07:30] LABS: Appearance Urine CLEAR; Color Urine YELLOW; Glucose Urine UA NEG (NEG); Leukocyte Esterase Urine NEG (NEG); Nitrite Urine NEG (NEG); Urine Blood 3+ (NEG); Urine Ketones NEG (NEG); Urine Protein 1+ MG/DL (NEG-TRACE)
[2021-10-04 07:45] LABS: Bacteria Urine TRACE /LPF; Squamous Epithelial Cell Urine 1+ /LPF
[2021-10-04] MEDS: 0.9 % Sodium Chloride Flush 3 ML SYRINGE IVFLUSH ×2 (07:52→15:11)
[2021-10-04] MEDS: Folic Acid 1 MG TABLET PO (07:54)
[2021-10-04] MEDS: Chlorhexidine Gluc Oral Rinse 15 ML MOUTHWASH BUCCAL ×3 (07:54→22:12)
[2021-10-04] MEDS: Thiamine HCL 100 MG TABLET OG-TUBE (07:54)
[2021-10-04] MEDS: Heparin Sodium,Porcine 5,000 UNIT/ML VIAL 5000 UNIT SUBCUT ×2 (07:54→16:09)
[2021-10-04 09:07] LABS: CDiff Gene PCR NEGATIVE (Negative)
[2021-10-04] MEDS: Nystatin Powder 15 GM BOTTLE 1 APPL TOPICAL ×3 (11:31→22:12)
[2021-10-04 12:11] LABS: Glucose, Whole Blood 153 mg/dL (60-115)
--- NOTE | 2021-10-04 15:30 | MHC.CM.PN ---
Met with pt's dtr and brother during the day to discuss assisted plan of care - specifically, pt's d/c care needs. Pt will need extensive medical and rehab care likely in an LTAC setting: In addition, because pt does not have a HCP and cannot make medical decisions for himself at this time, he will need a legal guardian. Both parties agree to serve in this role: pt's remaining siblings will be arriving to [place] today at which time they will review pt's medical condition and agree on a person to serve as guardian. Pt is showing slight signs of neuro fx following discontinuation of sedation meds. He continues on vent support following cardiac resuscitation. CM to follow for initiation of guardianship. Referrals to post acute centers to follow.
--- NOTE | 2021-10-04 15:57 | P.PNCC_ITS ---
Subjective Subjective Date of Service: 10/04/21 Interval History: A 61-year-old morbidly obese type 2 diabetic and hypertensive and hyperlipidemic and chronic alcoholic who came in with what appeared to be community-acquired pneumonia became increasingly hypoxic and then noted to become bradycardic and then asystolic 20 minute resuscitation to restore spontaneous circulation and he developed acute hepatic insufficiency is as well as liver injury all of which seems to be repairing at this point but has persistent fever despite the combination of Unasyn and vancomycin remained on the ventilator but is on an FiO2 of 40% clearing chest x-ray and diminished minute ventilatory requirements of only 7 L and he is beginning to just wake up but still not restored cognitive function so we continue to observe and because he has it continues to have fever we did a peripheral ultrasound which was negative for DVT and a repeat urinalysis and stop the antibiotics at this point in case this is drug fever Critical Care Time (minutes): 45 Physical Exam Vital Signs: Vital Signs: Last Vital Signs Temp 101.7 F H 10/04/21 14:59 Pulse 71 10/04/21 15:22 Resp 19 10/04/21 15:22 BP 140/68 H 10/04/21 14:59 Pulse Ox 94 10/04/21 14:59 Oxygen Flow Rate 4 09/28/21 11:25 BMI result Body Mass Index 42.9 Essentially unresponsive today but capable of moving his 4 extremities No neck vein distension stable CVP of 10 Diminished bilateral breath sounds no adventitious sounds Abdomen soft tolerating diet Skin intact Objective Data Labs CBC & Chem 7: 10/04/21 05:16 10/04/21 05:16 Labs: Laboratory Results - last 24 hr 10/03/21 10/03/21 10/03/21 16:08 18:01 23:38 WBC RBC Hgb Hct MCV MCH MCHC RDW Plt Count MPV Immature Gran % (Auto) Neut % (Auto) Lymph % (Auto) [place] % (Auto) Eos % (Auto) Baso % (Auto) Lymph # (Auto) [place] # (Auto) Eos # (Auto) Baso # (Auto) Abs Immat Gran (auto) Absolute Neuts (auto) Absolute Nucleated RBC Nucleated RBC % (auto) Neutrophils % (Manual) Band Neutrophils % Lymphocytes % (Manual) Monocytes % (Manual) Eosinophils % (Manual) Abs Neuts (Manual) Lymphocytes # (Manual) Monocytes # (Manual) Eosinophils # (Manual) Dohle Bodies Platelet Estimate Large Platelets Plt Morphology Comment RBC Morphology Polychromasia Macrocytosis D-Dimer High Sensitivty VBG pH VBG pCO2 VBG pO2 VBG HCO3 VBG O2 Saturation VBG Base Excess Sodium Potassium Chloride Carbon Dioxide Anion Gap BUN Creatinine Estim Creat Clear Calc Estimated GFR POC Glucose 196 H 182 H Random Glucose Calcium Phosphorus Magnesium Total Bilirubin Direct Bilirubin AST ALT Alkaline Phosphatase B-Natriuretic Peptide Total Protein Albumin Urine Color Urine Appearance Urine pH Ur Specific [place] Urine Protein Urine Glucose (UA) Urine Ketones Urine Blood Urine Nitrite Ur Leukocyte Esterase Urine RBC Urine WBC Ur Squamous Epith Cells Urine Bacteria Vancomycin Trough 5.6 L C. difficile Tox B Gene 10/04/21 10/04/21 10/04/21 05:14 05:16 05:16 WBC 12.4 H RBC 3.81 L Hgb 11.3 L Hct 35.1 L MCV 92.1 MCH 29.7 MCHC 32.2 RDW 15.0 Plt Count 232 MPV 9.7 Immature Gran % (Auto) Cancelled Neut % (Auto) Cancelled Lymph % (Auto) Cancelled [place] % (Auto) Cancelled Eos % (Auto) Cancelled Baso % (Auto) Cancelled Lymph # (Auto) Cancelled [place] # (Auto) Cancelled Eos # (Auto) Cancelled Baso # (Auto) Cancelled Abs Immat Gran (auto) Cancelled Absolute Neuts (auto) Cancelled Absolute Nucleated RBC 0.000 Nucleated RBC % (auto) 0.0 Neutrophils % (Manual) 81 H Band Neutrophils % 2 L Lymphocytes % (Manual) 11 L Monocytes % (Manual) 5 Eosinophils % (Manual) 1 Abs Neuts (Manual) 10.3 H Lymphocytes # (Manual) 1.4 Monocytes # (Manual) 0.6 Eosinophils # (Manual) 0.1 Dohle Bodies PRESENT Platelet Estimate NORMAL Large Platelets PRESENT Plt Morphology Comment NORMAL RBC Morphology NORMAL Polychromasia 1+ (0-2) Macrocytosis 1+ (5-14) D-Dimer High Sensitivty 911 VBG pH 7.50 H VBG pCO2 40 VBG pO2 46 VBG HCO3 32 H VBG O2 Saturation 72.0 VBG Base Excess 8.3 Sodium Potassium Chloride Carbon Dioxide Anion Gap BUN Creatinine Estim Creat Clear Calc Estimated GFR POC Glucose Random Glucose Calcium Phosphorus Magnesium Total Bilirubin Direct Bilirubin AST ALT Alkaline Phosphatase B-Natriuretic Peptide Total Protein Albumin Urine Color Urine Appearance Urine pH Ur Specific [place] Urine Protein Urine Glucose (UA) Urine Ketones Urine Blood Urine Nitrite Ur Leukocyte Esterase Urine RBC Urine WBC Ur Squamous Epith Cells Urine Bacteria Vancomycin Trough C. difficile Tox B Gene 10/04/21 10/04/21 10/04/21 05:16 05:16 05:19 WBC RBC Hgb Hct MCV MCH MCHC RDW Plt Count MPV Immature Gran % (Auto) Neut % (Auto) Lymph % (Auto) [place] % (Auto) Eos % (Auto) Baso % (Auto) Lymph # (Auto) [place] # (Auto) Eos # (Auto) Baso # (Auto) Abs Immat Gran (auto) Absolute Neuts (auto) Absolute Nucleated RBC Nucleated RBC % (auto) Neutrophils % (Manual) Band Neutrophils % Lymphocytes % (Manual) Monocytes % (Manual) Eosinophils % (Manual) Abs Neuts (Manual) Lymphocytes # (Manual) Monocytes # (Manual) Eosinophils # (Manual) Dohle Bodies Platelet Estimate Large Platelets Plt Morphology Comment RBC Morphology Polychromasia Macrocytosis D-Dimer High Sensitivty VBG pH VBG pCO2 VBG pO2 VBG HCO3 VBG O2 Saturation VBG Base Excess Sodium 141 Potassium 4.2 Chloride 99 Carbon Dioxide 32 H Anion Gap 14 BUN 34 H Creatinine 1.56 H Estim Creat Clear Calc 56.3 Estimated GFR 46 POC Glucose 183 H Random Glucose 177 H D Calcium 9.3 Phosphorus 3.4 Magnesium 1.9 Total Bilirubin 1.4 H Direct Bilirubin 1.0 H AST 51 H ALT 110 H Alkaline Phosphatase 211 H D B-Natriuretic Peptide 950 H Total Protein 6.9 Albumin 3.2 L Urine Color Urine Appearance Urine pH Ur Specific [place] Urine Protein Urine Glucose (UA) Urine Ketones Urine Blood Urine Nitrite Ur Leukocyte Esterase Urine RBC Urine WBC Ur Squamous Epith Cells Urine Bacteria Vancomycin Trough C. difficile Tox B Gene 10/04/21 10/04/21 10/04/21 07:13 07:13 12:09 WBC RBC Hgb Hct MCV MCH MCHC RDW Plt Count MPV Immature Gran % (Auto) Neut % (Auto) Lymph % (Auto) [place] % (Auto) Eos % (Auto) Baso % (Auto) Lymph # (Auto) [place] # (Auto) Eos # (Auto) Baso # (Auto) Abs Immat Gran (auto) Absolute Neuts (auto) Absolute Nucleated RBC Nucleated RBC % (auto) Neutrophils % (Manual) Band Neutrophils % Lymphocytes % (Manual) Monocytes % (Manual) Eosinophils % (Manual) Abs Neuts (Manual) Lymphocytes # (Manual) Monocytes # (Manual) Eosinophils # (Manual) Dohle Bodies Platelet Estimate Large Platelets Plt Morphology Comment RBC Morphology Polychromasia Macrocytosis D-Dimer High Sensitivty VBG pH VBG pCO2 VBG pO2 VBG HCO3 VBG O2 Saturation VBG Base Excess Sodium Potassium Chloride Carbon Dioxide Anion Gap BUN Creatinine Estim Creat Clear Calc Estimated GFR POC Glucose 153 H Random Glucose Calcium Phosphorus Magnesium Total Bilirubin Direct Bilirubin AST ALT Alkaline Phosphatase B-Natriuretic Peptide Total Protein Albumin Urine Color YELLOW Urine Appearance CLEAR Urine pH 7.0 Ur Specific [place] 1.020 Urine Protein 1+ H Urine Glucose (UA) NEG Urine Ketones NEG Urine Blood 3+ H Urine Nitrite NEG Ur Leukocyte Esterase NEG Urine RBC 15-29 H Urine WBC 1-4 Ur Squamous Epith Cells 1+ Urine Bacteria TRACE Vancomycin Trough C. difficile Tox B Gene NEGATIVE Microbiology Microbiology Results: Microbiology 09/28/21 13:00 Blood - Venous Blood Culture - Final No growth after 5 days. 09/28/21 13:00 Blood - Venous Blood Culture - Final No growth after 5 days. 10/01/21 14:44 Sputum - Suctioned Gram Stain - Final 10/01/21 14:44 Sputum - Suctioned Sputum Culture - Final No growth. 09/29/21 05:10 Sputum - Suctioned Gram Stain - Final 09/29/21 05:10 Sputum - Suctioned Sputum Culture - Final No growth. 09/29/21 Unknown Urine clean catch - Clean Catch Midstream Urine Culture - Final No growth. Progress Note: A&P Assessment and plan (1) Morbid obesity due to excess calories: Status: Acute (2) Anoxic encephalopathy: Status: Acute (3) Cardiac arrest due to other underlying condition: Status: Acute (4) Aspiration pneumonia: Status: Acute (5) Acute renal failure: Status: Acute (6) CKD (chronic kidney disease) stage 3, GFR 30-59 ml/min: Status: Acute (7) Liver cirrhosis: Status: Acute (8) Hyponatremia: Status: Acute (9) Lactic acidosis: Status: Acute (10) Community acquired pneumonia: Status: Acute (11) Sepsis: Status: Acute (12) Dyspnea: Status: Acute (13) DARRIAN (obstructive sleep apnea): Status: Acute Plan So the anoxic encephalopathy persists no meaningful cognitive function displayed and the only other active issue is the persistence of fever in the face of a improving chest x-ray and the diminishing ventilatory requirements of negative urinalysis no evidence of deep vein thrombosis so were going to follow him off the antibiotics see if the fever resolved spontaneously Quality Stroke Does the patient have a stroke diagnosis?: No VTE Prior VTE?: No VTE Risk Level:: Medical - moderate - high VTE Device Contraindication: N/A - Device Ordered VTE Drug Contraindication: Treatment Not Indicated
[2021-10-04 17:36] LABS: Glucose, Whole Blood 179 mg/dL (60-115)
--- NOTE | 2021-10-04 19:41 | PC.NURSE ---
TMAX 102.2 SAMPLES COLLECTED AND SENT TO LAB. PSV 15/5 AT 40% AT 1124 CHANGED AT 1133 TO 18/8 AT 45% TOLERATED FOR ABOUT 1 HR AND THEN CHANGED BACK TO ORIGINAL SETTINGS.
[2021-10-05] VITALS (37 sets, daily range): BP systolic 121–180; BP diastolic 64–86; PULSE 58–93; RESP 17–28; TEMP 34.7–38.7; O2SAT 90–95; BMI 42.9
[2021-10-05 00:01] LABS: Glucose, Whole Blood 167 mg/dL (60-115)
[2021-10-05] MEDS: Albuterol/Iprat 2.5/0.5MG 3 ML AMPUL.NEB INHALE ×6 (00:18→21:10)
[2021-10-05] MEDS: Insulin Lispro 100 UNIT/ML 3 ML VIAL SUBCUT ×3 (00:26→17:50)
[2021-10-05] MEDS: Heparin Sodium,Porcine 5,000 UNIT/ML VIAL 5000 UNIT SUBCUT ×3 (00:26→15:45)
[2021-10-05] MEDS: 0.9 % Sodium Chloride Flush 3 ML SYRINGE IVFLUSH ×3 (00:32→15:25)
[2021-10-05] MEDS: fentaNYL citrate/PF 100 MCG/2 ML VIAL 50 MCG IVPUSH (03:00)
[2021-10-05] MEDS: LORazepam 2 MG/ML VIAL IVPUSH ×3 (03:43→20:16)
[2021-10-05 05:27] LABS: VBG Base Excess 4.7 mmol/L; VBG HCO3 28 mmol/L (22-26); VBG pCO2 38 mmHg; VBG pH 7.47 (7.32-7.43); VBG pO2 51 mmHg
[2021-10-05 05:29] LABS: Glucose, Whole Blood 153 mg/dL (60-115)
--- NOTE | 2021-10-05 05:29 | PC.NURSE ---
Addendum entered by Vikas Garcia RN 10/05/21 06:06: Tmax was 102.4, Ice was placed on patient at approximately 2200, temperature has trended down to 99.7 as of 0600. CVP of 8 Original Note: initial contact: Pupils are perrl. pt does not follow commands or respond to yes no questions (in ge[place]ian).Pt does open eyes and blink but does not track. Pt occasionally moves ext. LS clear, RLL dim. Intubated with a 8 @ 23cm at the lip. Pt on AC R18 V400 peep 8 40% o2. Pt is maintains NS rhythm. Pt has +2 non-pitting edema in hands. Abd is soft/non-tender. Pt has mushy BMs (x2) through the night, normal color. Pt has robles with clear yellow out put at a rate of approximately 50-60mls an hour. Pt has bruising to the right inner knee and lower abd. Bottom is red/pink but blanchable. Pt is generally weak. At approximately 0230 this morning patient appeared anxious with increased BP and was able to communicate abd pain through yes/no questions. Pt was treated with fentanyl and ativan. pt is not on sedation at this time and has been tolerating the ETT well.
[2021-10-05 05:36] LABS: MANUAL DIFF FLAG NO
[2021-10-05 05:43] LABS: Basophils Percent Auto 0.2 % (0-2); Eosinophils Absolute Auto 0.3 X10*3/uL (0.0-0.4); Eosinophils Percent Auto 2.1 % (0-4); Hemoglobin 10.7 g/dl (14.0-18.0); Imm Gran Abs Auto 0.42 X10*3/uL (0.00-0.03); Imm Gran Pct Auto 2.7 % (0.0-0.4); Lymphocytes Absolute Auto 1.7 X10*3/uL (1.2-4.9); Lymphocytes Percent Auto 11.1 % (20-40); Mean Corpuscular HGB Conc 31.5 g/dl (31.0-36.0); Mean Corpuscular Hemoglobin 29.2 pg (27.0-33.0); Mean Corpuscular Volume 92.6 fL (80.0-98.0); Mean Platelet Volume 10.4 fL (9.4-12.4); Monocytes Percent Auto 6.6 % (2-11); Neutrophils Absolute Auto 12.1 x10*3/uL (2.0-8.3); Neutrophils Percent Auto 77.3 % (45-73); Platelet Count 229 X10*3/uL (160-400); Red Blood Count 3.67 X10*6/uL (4.60-5.80); Red Cell Distribution Width 14.8 % (11.0-16.0); White Blood Count 15.6 X10*3/uL (4.8-10.8)
[2021-10-05 05:48] LABS: Venous Blood Gas Refer to POC result
[2021-10-05 05:51] LABS: D Dimer High Sensitivity 759 NG/ML
[2021-10-05 06:00] LABS: Alanine Aminotransferase 80 U/L (0-40); Albumin Level 2.9 g/dL (3.5-5.0); Alkaline Phosphatase 194 U/L (39-117); Anion Gap 13 (12-20); Aspartate Amino Transferase 58 U/L (5-37); Bilirubin Direct 0.7 mg/dL (0.0-0.5); Bilirubin Total 1.1 mg/dL (0.0-1.0); Blood Urea Nitrogen 34 mg/dL (9-16); Carbon Dioxide 29 mmol/L (22-29); Chloride 104 mmol/L (96-108); Creatinine Clr Calc Pharmacy 65.5; Estimated Glomerular Filt Rate 55; Glucose Random 142 mg/dL (60-115); Magnesium 1.9 mg/dL (1.6-2.6); Phosphorus 3.3 mg/dL (2.7-4.5); Potassium 3.9 mmol/L (3.3-5.1); Sodium 142 mmol/L (135-145); Total Protein 6.5 g/dL (6.5-8.0)
[2021-10-05 06:01] LABS: B Type Natriuretic Peptide 278 pg/mL (<100)
[2021-10-05] MEDS: Thiamine HCL 100 MG TABLET OG-TUBE (08:39)
[2021-10-05] MEDS: Folic Acid 1 MG TABLET PO (08:39)
[2021-10-05] MEDS: Albumin Human 25 % 100 ML IV ×3 (08:39→19:48)
[2021-10-05] MEDS: Chlorhexidine Gluc Oral Rinse 15 ML MOUTHWASH BUCCAL ×3 (08:39→23:17)
[2021-10-05] MEDS: Nystatin Powder 15 GM BOTTLE 1 APPL TOPICAL ×3 (08:43→21:00)
[2021-10-05] MEDS: fentaNYL citrate/NS 1,000 MCG/100 ML PLAST..BAG 2.5 MCG IVCONT (10:17)
--- NOTE | 2021-10-05 11:02 | P.PNCC_ITS ---
Subjective Subjective Date of Service: 10/05/21 Interval History: 61-year-old gentleman with underlying history of obesity, diabetes mellitus, hypertension, chronic alcohol abuse, liver cirrhosis admitted on 09/28/2021 with dyspnea and bloating. Patient was treated for community-acquired pneumonia. Hospital course significant for development of bradycardia and hypoxia with resultant a systolic cardiac arrest on 09/29/2021 with returned spontaneous circulation after 20 minutes of CPR, patient intubated during code and transferred to intensive care unit. In the intensive care unit patient with significant encephalopathy with very slow incremental improvements. No events overnight. Critical Care Time (minutes): 45 Physical Exam Vital Signs: Vital Signs: Last Vital Signs Temp 100.0 F 10/05/21 08:59 Pulse 74 10/05/21 10:00 Resp 19 10/05/21 10:00 BP 154/82 H 10/05/21 10:00 Pulse Ox 94 10/05/21 10:00 Oxygen Flow Rate 4 09/28/21 11:25 BMI result Body Mass Index 42.9 Const: General: no acute distress and other (Some response to Prydeinig with head nodding, not following commands ) Nutritional Appearance: Edematous Eyes: Sclerae: sclerae normal EOM: EOMs intact bilaterally Neck: Neck: Yes no lymphadenopathy, Yes trachea midline and Yes supple Resp: Auscultation: crackles (Bibasilar) Cardio: Rate: regular rate Rhythm: regular rhythm Heart sounds: no gallops, no murmurs and no rubs GI: Palpation (GI): Soft to palpation and Other GI palpation findings present ( Nontender) Auscultation: normal bowel sounds Extrem: General: No clubbing, No cyanosis and Yes pedal edema (Trace bilateral) Objective Data Labs CBC & Chem 7: 10/05/21 05:20 10/05/21 05:20 Labs: Laboratory Results - last 24 hr 10/04/21 10/04/21 10/04/21 12:09 17:32 23:55 WBC RBC Hgb Hct MCV MCH MCHC RDW Plt Count MPV Immature Gran % (Auto) Neut % (Auto) Lymph % (Auto) [place] % (Auto) Eos % (Auto) Baso % (Auto) Lymph # (Auto) [place] # (Auto) Eos # (Auto) Baso # (Auto) Abs Immat Gran (auto) Absolute Neuts (auto) Absolute Nucleated RBC Nucleated RBC % (auto) D-Dimer High Sensitivty VBG pH VBG pCO2 VBG pO2 VBG HCO3 VBG O2 Saturation VBG Base Excess Sodium Potassium Chloride Carbon Dioxide Anion Gap BUN Creatinine Estim Creat Clear Calc Estimated GFR POC Glucose 153 H 179 H 167 H Random Glucose Calcium Phosphorus Magnesium Total Bilirubin Direct Bilirubin AST ALT Alkaline Phosphatase B-Natriuretic Peptide Total Protein Albumin 10/05/21 10/05/21 10/05/21 05:20 05:20 05:20 WBC 15.6 H RBC 3.67 L Hgb 10.7 L Hct 34.0 L MCV 92.6 MCH 29.2 MCHC 31.5 RDW 14.8 Plt Count 229 MPV 10.4 Immature Gran % (Auto) 2.7 H Neut % (Auto) 77.3 H Lymph % (Auto) 11.1 L [place] % (Auto) 6.6 Eos % (Auto) 2.1 Baso % (Auto) 0.2 Lymph # (Auto) 1.7 [place] # (Auto) 1.0 Eos # (Auto) 0.3 Baso # (Auto) 0.0 Abs Immat Gran (auto) 0.42 H Absolute Neuts (auto) 12.1 H Absolute Nucleated RBC 0.000 Nucleated RBC % (auto) 0.0 D-Dimer High Sensitivty 759 VBG pH VBG pCO2 VBG pO2 VBG HCO3 VBG O2 Saturation VBG Base Excess Sodium 142 Potassium 3.9 Chloride 104 Carbon Dioxide 29 Anion Gap 13 BUN 34 H Creatinine 1.34 Estim Creat Clear Calc 65.5 Estimated GFR 55 POC Glucose Random Glucose 142 H Calcium 9.0 Phosphorus 3.3 Magnesium 1.9 Total Bilirubin 1.1 H Direct Bilirubin 0.7 H AST 58 H ALT 80 H Alkaline Phosphatase 194 H B-Natriuretic Peptide Total Protein 6.5 Albumin 2.9 L 10/05/21 10/05/21 10/05/21 05:20 05:20 05:27 WBC RBC Hgb Hct MCV MCH MCHC RDW Plt Count MPV Immature Gran % (Auto) Neut % (Auto) Lymph % (Auto) [place] % (Auto) Eos % (Auto) Baso % (Auto) Lymph # (Auto) [place] # (Auto) Eos # (Auto) Baso # (Auto) Abs Immat Gran (auto) Absolute Neuts (auto) Absolute Nucleated RBC Nucleated RBC % (auto) D-Dimer High Sensitivty VBG pH 7.47 H VBG pCO2 38 VBG pO2 51 VBG HCO3 28 H VBG O2 Saturation 79.0 VBG Base Excess 4.7 Sodium Potassium Chloride Carbon Dioxide Anion Gap BUN Creatinine Estim Creat Clear Calc Estimated GFR POC Glucose 153 H Random Glucose Calcium Phosphorus Magnesium Total Bilirubin Direct Bilirubin AST ALT Alkaline Phosphatase B-Natriuretic Peptide 278 H Total Protein Albumin Microbiology Microbiology Results: Microbiology 10/04/21 17:56 Sputum - Suctioned Gram Stain - Final 10/04/21 17:56 Sputum - Suctioned Sputum Culture - Preliminary No growth to date. 09/28/21 13:00 Blood - Venous Blood Culture - Final No growth after 5 days. 09/28/21 13:00 Blood - Venous Blood Culture - Final No growth after 5 days. 10/01/21 14:44 Sputum - Suctioned Gram Stain - Final 10/01/21 14:44 Sputum - Suctioned Sputum Culture - Final No growth. 09/29/21 05:10 Sputum - Suctioned Gram Stain - Final 09/29/21 05:10 Sputum - Suctioned Sputum Culture - Final No growth. 09/29/21 Unknown Urine clean catch - Clean Catch Midstream Urine Culture - Final No growth. Progress Note: A&P Assessment and plan (1) Morbid obesity due to excess calories: Status: Acute (2) Anoxic encephalopathy: Status: Acute (3) Cardiac arrest due to other underlying condition: Status: Acute (4) Aspiration pneumonia: Status: Acute (5) Acute renal failure: Status: Acute (6) CKD (chronic kidney disease) stage 3, GFR 30-59 ml/min: Status: Acute (7) Liver cirrhosis: Status: Acute (8) Acute respiratory failure: Status: Acute (9) Diabetes: Status: Acute (10) Congestive heart failure: Status: Acute Plan Assessment: 61-year-old gentleman admitted with dyspnea and hypoxemia and treated for community-acquired pneumonia with hospital course complicated by asystolic cardiac arrest, now with prolonged encephalopathy, still requiring ventilatory support. Plan: Neuro: Prolonged encephalopathy post cardiac arrest with slow incremental improvements. Continue to monitor clinically. May consider MRI. Cardiac: No acute issues. Pulmonary: Acute respiratory failure with possible aspiration component in itially, continue to titrate off ventilatory support as tolerated. Renal: Chronic kidney disease, acute kidney injury component improved. Non oliguric. Continue to monitor renal indices and urine output. Endo: No acute issues. Underlying diabetes mellitus. GI: No acute issues. Underlying liver cirrhosis, likely alcohol related. ID: No acute issues Heme/Onc: No acute issues. Psych: No acute issues. Miscellaneous: No acute issues. Prophylaxis: Heparin, famotidine Diet: Tube feeds Critical care time spent: 45 minutes Quality Stroke Does the patient have a stroke diagnosis?: No VTE Prior VTE?: No VTE Risk Level:: Medical - moderate - high VTE Device Contraindication: N/A - Device Ordered VTE Drug Contraindication: Treatment Not Indicated
--- NOTE | 2021-10-05 11:17 | MHC.CLN ---
F/U PT REMAINS INTUBATED PT RECEIVING TF GLUCERNA AT MAX GOAL RATE 50 ML/HR WITH PROSOURCE TID AND 240ML OF FREE WATER FLUSHES Q 6HRS PROVIDES 1380KCALS, 95G TOTAL PROTEIN (1.25G/KG), 1984 ML TOTAL FREE WATER FROM FORMULA AND FLUSHES (26ML/KG) CONTINUE TO MONITOR TOLERANCE, RESIDUALS AND LYTES
[2021-10-05 11:35] LABS: Glucose, Whole Blood 154 mg/dL (60-115)
--- NOTE | 2021-10-05 16:15 | MHC.CM.PN ---
Pt continues on ventilatory support in ICU: Family has not yet appointed a person to serve as pt's legal court appointed guardian. Pt's brother, an MD visiting from [place], will contact to give the name and demographic information of the appointee as soon as a decision has been made. Of note, pt has a son in [place] who is [place] his way [place] [facility] [place] family discussion.
[2021-10-05 17:50] LABS: Glucose, Whole Blood 163 mg/dL (60-115)
[2021-10-05] MEDS: fentaNYL citrate/NS 1,000 MCG/100 ML PLAST..BAG 5 MCG IVCONT (23:21)
[2021-10-06] VITALS (35 sets, daily range): BP systolic 108–171; BP diastolic 57–83; PULSE 58–88; RESP 16–43; TEMP 34.4–38.1; O2SAT 91–96
[2021-10-06] MEDS: Albuterol/Iprat 2.5/0.5MG 3 ML AMPUL.NEB INHALE ×3 (00:23→07:22)
[2021-10-06] MEDS: Heparin Sodium,Porcine 5,000 UNIT/ML VIAL 5000 UNIT SUBCUT ×3 (01:36→14:04)
[2021-10-06] MEDS: Insulin Lispro 100 UNIT/ML 3 ML VIAL SUBCUT (01:44)
[2021-10-06] MEDS: LORazepam 2 MG/ML VIAL IVPUSH (01:44)
[2021-10-06] MEDS: Albumin Human 25 % 100 ML IV (01:48)
[2021-10-06] MEDS: 0.9 % Sodium Chloride Flush 3 ML SYRINGE IVFLUSH ×3 (01:58→20:22)
[2021-10-06] MEDS: propofoL 1,000 MG/100 ML VIAL 13.19 MG IVCONT ×4 (02:15→20:22)
[2021-10-06 05:19] LABS: VBG Base Excess 5.9 mmol/L; VBG HCO3 30 mmol/L (22-26); VBG pCO2 43 mmHg; VBG pH 7.44 (7.32-7.43); VBG pO2 53 mmHg
[2021-10-06 05:26] LABS: Venous Blood Gas Refer to POC result
[2021-10-06 05:28] LABS: MANUAL DIFF FLAG NO
[2021-10-06 05:30] LABS: Basophils Percent Auto 0.2 % (0-2); Eosinophils Absolute Auto 0.3 X10*3/uL (0.0-0.4); Hematocrit 29.6 % (42.0-52.0); Hemoglobin 9.3 g/dl (14.0-18.0); Imm Gran Abs Auto 0.25 X10*3/uL (0.00-0.03); Imm Gran Pct Auto 1.6 % (0.0-0.4); Lymphocytes Absolute Auto 1.8 X10*3/uL (1.2-4.9); Lymphocytes Percent Auto 11.8 % (20-40); Mean Corpuscular HGB Conc 31.4 g/dl (31.0-36.0); Mean Corpuscular Hemoglobin 29.1 pg (27.0-33.0); Mean Corpuscular Volume 92.5 fL (80.0-98.0); Monocytes Percent Auto 6.8 % (2-11); Neutrophils Absolute Auto 11.9 x10*3/uL (2.0-8.3); Neutrophils Percent Auto 77.6 % (45-73); Platelet Count 212 X10*3/uL (160-400); White Blood Count 15.4 X10*3/uL (4.8-10.8)
[2021-10-06 05:48] LABS: Alanine Aminotransferase 56 U/L (0-40); Alkaline Phosphatase 164 U/L (39-117); Anion Gap 13 (12-20); Aspartate Amino Transferase 45 U/L (5-37); Bilirubin Direct 0.8 mg/dL (0.0-0.5); Bilirubin Total 1.4 mg/dL (0.0-1.0); Blood Urea Nitrogen 32 mg/dL (9-16); Calcium 9.6 mg/dL (8.4-10.2); Carbon Dioxide 28 mmol/L (22-29); Chloride 107 mmol/L (96-108); Creatinine Clr Calc Pharmacy 67.5; Estimated Glomerular Filt Rate 57; Glucose Random 110 mg/dL (60-115); Phosphorus 3.8 mg/dL (2.7-4.5); Potassium 4.1 mmol/L (3.3-5.1); Sodium 144 mmol/L (135-145); Total Protein 7.2 g/dL (6.5-8.0)
[2021-10-06 05:49] LABS: B Type Natriuretic Peptide 685 pg/mL (<100)
[2021-10-06 05:50] LABS: D Dimer High Sensitivity 885 NG/ML
[2021-10-06 06:00] LABS: Glucose, Whole Blood 109 mg/dL (60-115)
[2021-10-06] MEDS: Chlorhexidine Gluc Oral Rinse 15 ML MOUTHWASH BUCCAL ×2 (08:03→20:22)
[2021-10-06] MEDS: Thiamine HCL 100 MG TABLET OG-TUBE (08:04)
[2021-10-06] MEDS: Furosemide 40 MG/4 ML VIAL IVPUSH (08:04)
[2021-10-06] MEDS: Folic Acid 1 MG TABLET PO (08:04)
[2021-10-06] MEDS: Nystatin Powder 15 GM BOTTLE 1 APPL TOPICAL ×3 (08:04→20:22)
--- NOTE | 2021-10-06 09:35 | P.PNCC_ITS ---
Subjective Subjective Date of Service: 10/06/21 Interval History: 61-year-old gentleman with underlying history of obesity, diabetes mellitus, hypertension, chronic alcohol abuse, liver cirrhosis admitted on 09/28/2021 with dyspnea and bloating. Patient was treated for community-acquired pneumonia. Hospital course significant for development of bradycardia and hypoxia with resultant a systolic cardiac arrest on 09/29/2021 with returned spontaneous circulation after 20 minutes of CPR, patient intubated during code and transferred to intensive care unit. In the intensive care unit patient with significant encephalopathy with very slow incremental improvements. No events overnight. Poor tolerance of pressure support trial. Critical Care Time (minutes): 45 Physical Exam Vital Signs: Vital Signs: Last Vital Signs Temp 97.7 F 10/06/21 08:00 Pulse 66 10/06/21 09:00 Resp 18 10/06/21 09:00 BP 123/63 10/06/21 09:00 Pulse Ox 94 10/06/21 09:00 Oxygen Flow Rate 4 09/28/21 11:25 BMI result Body Mass Index 42.9 Const: General: no acute distress and other ( Sedated on the vent) Eyes: Sclerae: sclerae normal EOM: EOMs intact bilaterally Neck: Neck: Yes no lymphadenopathy, Yes trachea midline and Yes supple Resp: Effort & Inspection: normal respiratory effort and no respiratory distress Auscultation: clear to auscultation bilaterally Cardio: Rate: regular rate Rhythm: regular rhythm Heart sounds: no gallops, no murmurs and no rubs GI: Palpation (GI): Soft to palpation and Other GI palpation findings present ( Nontender) Auscultation: normal bowel sounds Extrem: General: Yes no pedal edema, No clubbing and No cyanosis Objective Data Labs CBC & Chem 7: 10/06/21 05:14 10/06/21 05:14 Labs: Laboratory Results - last 24 hr 10/05/21 10/05/21 10/06/21 11:15 17:42 05:11 WBC RBC Hgb Hct MCV MCH MCHC RDW Plt Count MPV Immature Gran % (Auto) Neut % (Auto) Lymph % (Auto) [place] % (Auto) Eos % (Auto) Baso % (Auto) Lymph # (Auto) [place] # (Auto) Eos # (Auto) Baso # (Auto) Abs Immat Gran (auto) Absolute Neuts (auto) Absolute Nucleated RBC Nucleated RBC % (auto) D-Dimer High Sensitivty VBG pH 7.44 H VBG pCO2 43 VBG pO2 53 VBG HCO3 30 H VBG O2 Saturation 78.0 VBG Base Excess 5.9 Sodium Potassium Chloride Carbon Dioxide Anion Gap BUN Creatinine Estim Creat Clear Calc Estimated GFR POC Glucose 154 H 163 H Random Glucose Calcium Phosphorus Magnesium Total Bilirubin Direct Bilirubin AST ALT Alkaline Phosphatase B-Natriuretic Peptide Total Protein Albumin 10/06/21 10/06/21 10/06/21 05:14 05:14 05:14 WBC 15.4 H RBC 3.20 L Hgb 9.3 L Hct 29.6 L MCV 92.5 MCH 29.1 MCHC 31.4 RDW 15.0 Plt Count 212 MPV 10.0 Immature Gran % (Auto) 1.6 H Neut % (Auto) 77.6 H Lymph % (Auto) 11.8 L [place] % (Auto) 6.8 Eos % (Auto) 2.0 Baso % (Auto) 0.2 Lymph # (Auto) 1.8 [place] # (Auto) 1.0 Eos # (Auto) 0.3 Baso # (Auto) 0.0 Abs Immat Gran (auto) 0.25 H Absolute Neuts (auto) 11.9 H Absolute Nucleated RBC 0.000 Nucleated RBC % (auto) 0.0 D-Dimer High Sensitivty 885 VBG pH VBG pCO2 VBG pO2 VBG HCO3 VBG O2 Saturation VBG Base Excess Sodium 144 Potassium 4.1 Chloride 107 Carbon Dioxide 28 Anion Gap 13 BUN 32 H Creatinine 1.30 Estim Creat Clear Calc 67.5 Estimated GFR 57 POC Glucose Random Glucose 110 Calcium 9.6 D Phosphorus 3.8 Magnesium 2.0 Total Bilirubin 1.4 H Direct Bilirubin 0.8 H AST 45 H ALT 56 H Alkaline Phosphatase 164 H B-Natriuretic Peptide Total Protein 7.2 Albumin 4.0 D 10/06/21 10/06/21 05:14 05:57 WBC RBC Hgb Hct MCV MCH MCHC RDW Plt Count MPV Immature Gran % (Auto) Neut % (Auto) Lymph % (Auto) [place] % (Auto) Eos % (Auto) Baso % (Auto) Lymph # (Auto) [place] # (Auto) Eos # (Auto) Baso # (Auto) Abs Immat Gran (auto) Absolute Neuts (auto) Absolute Nucleated RBC Nucleated RBC % (auto) D-Dimer High Sensitivty VBG pH VBG pCO2 VBG pO2 VBG HCO3 VBG O2 Saturation VBG Base Excess Sodium Potassium Chloride Carbon Dioxide Anion Gap BUN Creatinine Estim Creat Clear Calc Estimated GFR POC Glucose 109 Random Glucose Calcium Phosphorus Magnesium Total Bilirubin Direct Bilirubin AST ALT Alkaline Phosphatase B-Natriuretic Peptide 685 H Total Protein Albumin Microbiology Microbiology Results: Microbiology 10/04/21 17:56 Sputum - Suctioned Gram Stain - Final 10/04/21 17:56 Sputum - Suctioned Sputum Culture - Final No growth. 10/04/21 18:08 Blood - Venous Blood Culture - Preliminary No growth after 24 hours. 10/04/21 18:08 Blood - Venous Blood Culture - Preliminary No growth after 24 hours. 09/28/21 13:00 Blood - Venous Blood Culture - Final No growth after 5 days. 09/28/21 13:00 Blood - Venous Blood Culture - Final No growth after 5 days. 10/01/21 14:44 Sputum - Suctioned Gram Stain - Final 10/01/21 14:44 Sputum - Suctioned Sputum Culture - Final No growth. 09/29/21 05:10 Sputum - Suctioned Gram Stain - Final 09/29/21 05:10 Sputum - Suctioned Sputum Culture - Final No growth. 09/29/21 Unknown Urine clean catch - Clean Catch Midstream Urine Culture - Final No growth. Progress Note: A&P Assessment and plan (1) Acute respiratory failure: Status: Acute (2) Morbid obesity due to excess calories: Status: Acute (3) Cardiac arrest due to other underlying condition: Status: Acute (4) Aspiration pneumonia: Status: Acute (5) CKD (chronic kidney disease) stage 3, GFR 30-59 ml/min: Status: Acute (6) Liver cirrhosis: Status: Acute (7) Anoxic encephalopathy: Status: Acute (8) Diabetes: Status: Acute Plan Assessment: 61-year-old gentleman admitted with dyspnea and hypoxemia and treated for community-acquired pneumonia with hospital course complicated by asystolic cardiac arrest, now with prolonged encephalopathy, still requiring ventilatory support. Plan: Neuro: Prolonged encephalopathy post cardiac arrest with slow incremental improvements. Continue to monitor clinically. Cardiac: No acute issues. Pulmonary: Acute respiratory failure with possible aspiration component initially, continue to titrate off ventilatory support as tolerated. still with poor tolerance of pressure support trial. Renal: Chronic kidney disease, acute kidney injury component improved. Non oliguric. Continue to monitor renal indices and urine output. Endo: No acute issues. Underlying diabetes mellitus. GI: No acute issues. Underlying liver cirrhosis, likely alcohol related. ID: No acute issues Heme/Onc: No acute issues. Psych: No acute issues. Miscellaneous: No acute issues. Prophylaxis: Heparin, famotidine Diet: Tube feeds Critical care time spent: 45 minutes Quality Stroke Does the patient have a stroke diagnosis?: No VTE Prior VTE?: No VTE Risk Level:: Medical - moderate - high VTE Device Contraindication: N/A - Device Ordered VTE Drug Contraindication: Treatment Not Indicated
[2021-10-06] MEDS: fentaNYL citrate/NS 1,000 MCG/100 ML PLAST..BAG 7.5 MCG IVCONT ×2 (10:00→22:21)
--- NOTE | 2021-10-06 10:58 | MHC.CM.PN ---
Patient remains intubated/vented. No HCP on file. Family is still in the process of gathering in order to determine plan of care. Patient has received 2 Pfizer vaccines but no booster noted. Continue to monitor for d/c needs.
[2021-10-06 11:48] LABS: Glucose, Whole Blood 103 mg/dL (60-115)
--- NOTE | 2021-10-06 13:55 | PC.NURSE ---
Pressure support trailed this AM, only tolerated psupp 22/5, rr ~26, psupp 10/5 RR remained 40br/min Vt ~200 Ve 9.5L/min lasted 40 minutes. During this prop/fent were reduced to 10mcg/kg/min and 25mcg/hr respectively. Pt back on ACVC 16 vt 400 peep 5 FiO2 40%, prop 20mcg/kg/min fentanyl 75mcg/hr, pt resting more comfortably. Put out 1200ml urine s/p 40lasix IV this AM. Bed locked and in lowest position, call castillo in reach.
[2021-10-06 17:43] LABS: Glucose, Whole Blood 106 mg/dL (60-115)
[2021-10-07] VITALS (32 sets, daily range): BP systolic 104–133; BP diastolic 49–71; PULSE 50–69; RESP 12–22; TEMP 34.4–38.6; O2SAT 20–93
[2021-10-07] MEDS: Heparin Sodium,Porcine 5,000 UNIT/ML VIAL 5000 UNIT SUBCUT ×3 (00:16→14:28)
[2021-10-07 00:19] LABS: Glucose, Whole Blood 120 mg/dL (60-115)
[2021-10-07] MEDS: propofoL 1,000 MG/100 ML VIAL 13.19 MG IVCONT ×4 (02:51→20:27)
[2021-10-07 05:34] LABS: VBG Base Excess 5.5 mmol/L; VBG HCO3 29 mmol/L (22-26); VBG pCO2 40 mmHg; VBG pH 7.47 (7.32-7.43); VBG pO2 51 mmHg
[2021-10-07 05:49] LABS: MANUAL DIFF FLAG NO
[2021-10-07 05:53] LABS: Basophils Percent Auto 0.2 % (0-2); Eosinophils Absolute Auto 0.4 X10*3/uL (0.0-0.4); Eosinophils Percent Auto 2.4 % (0-4); Hematocrit 32.5 % (42.0-52.0); Hemoglobin 10.1 g/dl (14.0-18.0); Imm Gran Pct Auto 1.2 % (0.0-0.4); Lymphocytes Absolute Auto 2.1 X10*3/uL (1.2-4.9); Lymphocytes Percent Auto 12.4 % (20-40); Mean Corpuscular HGB Conc 31.1 g/dl (31.0-36.0); Mean Corpuscular Hemoglobin 28.7 pg (27.0-33.0); Mean Corpuscular Volume 92.3 fL (80.0-98.0); Mean Platelet Volume 10.7 fL (9.4-12.4); Monocytes Absolute Auto 1.3 X10*3/uL (0.1-1.2); Monocytes Percent Auto 7.5 % (2-11); Neutrophils Absolute Auto 12.7 x10*3/uL (2.0-8.3); Neutrophils Percent Auto 76.3 % (45-73); Platelet Count 236 X10*3/uL (160-400); Red Blood Count 3.52 X10*6/uL (4.60-5.80); White Blood Count 16.7 X10*3/uL (4.8-10.8)
[2021-10-07 05:55] LABS: Venous Blood Gas Refer to POC result
[2021-10-07 05:56] LABS: Glucose, Whole Blood 123 mg/dL (60-115)
[2021-10-07 06:01] LABS: D Dimer High Sensitivity 1669 NG/ML
[2021-10-07 06:12] LABS: Alanine Aminotransferase 50 U/L (0-40); Albumin Level 3.8 g/dL (3.5-5.0); Alkaline Phosphatase 188 U/L (39-117); Anion Gap 16 (12-20); Aspartate Amino Transferase 51 U/L (5-37); Bilirubin Direct 0.7 mg/dL (0.0-0.5); Bilirubin Total 1.1 mg/dL (0.0-1.0); Blood Urea Nitrogen 35 mg/dL (9-16); Calcium 9.5 mg/dL (8.4-10.2); Carbon Dioxide 24 mmol/L (22-29); Chloride 106 mmol/L (96-108); Creatinine Clr Calc Pharmacy 57.8; Estimated Glomerular Filt Rate 47; Glucose Random 121 mg/dL (60-115); Magnesium 2.2 mg/dL (1.6-2.6); Phosphorus 3.1 mg/dL (2.7-4.5); Potassium 4.1 mmol/L (3.3-5.1); Sodium 142 mmol/L (135-145); Total Protein 7.4 g/dL (6.5-8.0)
[2021-10-07 06:16] LABS: B Type Natriuretic Peptide 266 pg/mL (<100)
[2021-10-07] MEDS: Piperacillin Sodium/Tazobactam 3.375 GM in 0.9 % Sodium Chloride 50 ML IV ×3 (06:34→17:44)
--- NOTE | 2021-10-07 07:33 | P.PNCC_ITS ---
Subjective Subjective Date of Service: 10/07/21 Interval History: 61-year-old gentleman with underlying history of obesity, diabetes mellitus, hypertension, chronic alcohol abuse, liver cirrhosis admitted on 09/28/2021 with dyspnea and bloating. Patient was treated for community-acquired pneumonia. Hospital course significant for development of bradycardia and hypoxia with resultant a systolic cardiac arrest on 09/29/2021 with returned spontaneous circulation after 20 minutes of CPR, patient intubated during code and transferred to intensive care unit. In the intensive care unit patient with significant encephalopathy with very slow incremental improvements. Febrile overnight. Started on empiric Zosyn. Critical Care Time (minutes): 45 Physical Exam Vital Signs: Vital Signs: Last Vital Signs Temp 101.1 F H 10/07/21 06:00 Pulse 57 10/07/21 06:51 Resp 17 10/07/21 06:51 BP 108/57 L 10/07/21 06:51 Pulse Ox 92 10/07/21 06:51 Oxygen Flow Rate 4 09/28/21 11:25 BMI result Body Mass Index 42.9 Const: General: no acute distress and other ( Sedated on the vent) Eyes: Sclerae: sclerae normal EOM: EOMs intact bilaterally Neck: Neck: Yes no lymphadenopathy, Yes trachea midline and Yes supple Resp: Effort & Inspection: normal respiratory effort and no respiratory distress Auscultation: clear to auscultation bilaterally Cardio: Rate: regular rate Rhythm: regular rhythm Heart sounds: no gallops, no murmurs and no rubs GI: Palpation (GI): Soft to palpation and Other GI palpation findings present ( Nontender) Auscultation: normal bowel sounds Extrem: General: No clubbing, No cyanosis and Yes edema ( trace bilateral) Objective Data Labs CBC & Chem 7: 10/07/21 05:26 10/07/21 05:26 Labs: Laboratory Results - last 24 hr 10/06/21 10/06/21 10/07/21 11:45 17:39 00:14 WBC RBC Hgb Hct MCV MCH MCHC RDW Plt Count MPV Immature Gran % (Auto) Neut % (Auto) Lymph % (Auto) [place] % (Auto) Eos % (Auto) Baso % (Auto) Lymph # (Auto) [place] # (Auto) Eos # (Auto) Baso # (Auto) Abs Immat Gran (auto) Absolute Neuts (auto) Absolute Nucleated RBC Nucleated RBC % (auto) D-Dimer High Sensitivty VBG pH VBG pCO2 VBG pO2 VBG HCO3 VBG O2 Saturation VBG Base Excess Sodium Potassium Chloride Carbon Dioxide Anion Gap BUN Creatinine Estim Creat Clear Calc Estimated GFR POC Glucose 103 106 120 H Random Glucose Calcium Phosphorus Magnesium Total Bilirubin Direct Bilirubin AST ALT Alkaline Phosphatase B-Natriuretic Peptide Total Protein Albumin 10/07/21 10/07/21 10/07/21 05:26 05:26 05:26 WBC 16.7 H RBC 3.52 L Hgb 10.1 L Hct 32.5 L MCV 92.3 MCH 28.7 MCHC 31.1 RDW 15.0 Plt Count 236 MPV 10.7 Immature Gran % (Auto) 1.2 H Neut % (Auto) 76.3 H Lymph % (Auto) 12.4 L [place] % (Auto) 7.5 Eos % (Auto) 2.4 Baso % (Auto) 0.2 Lymph # (Auto) 2.1 [place] # (Auto) 1.3 H Eos # (Auto) 0.4 Baso # (Auto) 0.0 Abs Immat Gran (auto) 0.20 H Absolute Neuts (auto) 12.7 H Absolute Nucleated RBC 0.000 Nucleated RBC % (auto) 0.0 D-Dimer High Sensitivty 1669 VBG pH VBG pCO2 VBG pO2 VBG HCO3 VBG O2 Saturation VBG Base Excess Sodium 142 Potassium 4.1 Chloride 106 Carbon Dioxide 24 Anion Gap 16 BUN 35 H Creatinine 1.52 H Estim Creat Clear Calc 57.8 Estimated GFR 47 POC Glucose Random Glucose 121 H Calcium 9.5 Phosphorus 3.1 Magnesium 2.2 Total Bilirubin 1.1 H Direct Bilirubin 0.7 H AST 51 H ALT 50 H Alkaline Phosphatase 188 H B-Natriuretic Peptide Total Protein 7.4 Albumin 3.8 10/07/21 10/07/21 10/07/21 05:26 05:26 05:53 WBC RBC Hgb Hct MCV MCH MCHC RDW Plt Count MPV Immature Gran % (Auto) Neut % (Auto) Lymph % (Auto) [place] % (Auto) Eos % (Auto) Baso % (Auto) Lymph # (Auto) [place] # (Auto) Eos # (Auto) Baso # (Auto) Abs Immat Gran (auto) Absolute Neuts (auto) Absolute Nucleated RBC Nucleated RBC % (auto) D-Dimer High Sensitivty VBG pH 7.47 H VBG pCO2 40 VBG pO2 51 VBG HCO3 29 H VBG O2 Saturation 74.0 VBG Base Excess 5.5 Sodium Potassium Chloride Carbon Dioxide Anion Gap BUN Creatinine Estim Creat Clear Calc Estimated GFR POC Glucose 123 H Random Glucose Calcium Phosphorus Magnesium Total Bilirubin Direct Bilirubin AST ALT Alkaline Phosphatase B-Natriuretic Peptide 266 H Total Protein Albumin Microbiology Microbiology Results: Microbiology 10/04/21 18:08 Blood - Venous Blood Culture - Preliminary No growth after 48 hours. 10/04/21 18:08 Blood - Venous Blood Culture - Preliminary No growth after 48 hours. 10/04/21 17:56 Sputum - Suctioned Gram Stain - Final 10/04/21 17:56 Sputum - Suctioned Sputum Culture - Final No growth. 09/28/21 13:00 Blood - Venous Blood Culture - Final No growth after 5 days. 09/28/21 13:00 Blood - Venous Blood Culture - Final No growth after 5 days. 10/01/21 14:44 Sputum - Suctioned Gram Stain - Final 10/01/21 14:44 Sputum - Suctioned Sputum Culture - Final No growth. 09/29/21 05:10 Sputum - Suctioned Gram Stain - Final 09/29/21 05:10 Sputum - Suctioned Sputum Culture - Final No growth. 09/29/21 Unknown Urine clean catch - Clean Catch Midstream Urine Culture - Final No growth. Progress Note: A&P Assessment and plan (1) Diabetes: Status: Acute (2) Acute respiratory failure: Status: Acute (3) Morbid obesity due to excess calories: Status: Acute (4) Anoxic encephalopathy: Status: Acute (5) Cardiac arrest due to other underlying condition: Status: Acute (6) Aspiration pneumonia: Status: Acute (7) Acute renal failure: Status: Acute (8) CKD (chronic kidney disease) stage 3, GFR 30-59 ml/min: Status: Acute (9) Liver cirrhosis: Status: Acute (10) DARRIAN (obstructive sleep apnea): Status: Acute Plan Assessment: 61-year-old gentleman admitted with dyspnea and hypoxemia and treated for community-acquired pneumonia with hospital course complicated by asystolic cardiac arrest, now with prolonged encephalopathy, still requiring ventilatory support. Plan: Neuro: Prolonged encephalopathy post cardiac arrest with slow incremental improvements. Continue to monitor clinically. Cardiac: No acute issues. Pulmonary: Acute respiratory failure with possible aspiration component initially, continue to titrate off ventilatory support as tolerated. still with poor tolerance of pressure support trial. Renal: Chronic kidney disease, acute kidney injury component improved. Non oliguric. Continue to monitor renal indices and urine output. Endo: No acute issues. Underlying diabetes mellitus. GI: No acute issues. Underlying liver cirrhosis, likely alcohol related. ID: Febrile overnight, started on empiric Zosyn. Heme/Onc: No acute issues. Psych: No acute issues. Miscellaneous: No acute issues. Prophylaxis: Heparin, famotidine Diet: Tube feeds Critical care time spent: 45 minutes Quality Stroke Does the patient have a stroke diagnosis?: No VTE Prior VTE?: No VTE Risk Level:: Medical - moderate - high VTE Device Contraindication: N/A - Device Ordered VTE Drug Contraindication: Treatment Not Indicated
[2021-10-07] MEDS: Thiamine HCL 100 MG TABLET OG-TUBE (08:37)
[2021-10-07] MEDS: Folic Acid 1 MG TABLET PO (08:37)
[2021-10-07] MEDS: Chlorhexidine Gluc Oral Rinse 15 ML MOUTHWASH BUCCAL ×3 (08:37→20:27)
[2021-10-07] MEDS: Nystatin Powder 15 GM BOTTLE 1 APPL TOPICAL ×3 (08:38→20:27)
[2021-10-07 11:43] LABS: Glucose, Whole Blood 118 mg/dL (60-115)
[2021-10-07] MEDS: fentaNYL citrate/NS 1,000 MCG/100 ML PLAST..BAG 2.5 MCG IVCONT (11:45)
--- NOTE | 2021-10-07 14:14 | PC.NURSE ---
Addendum entered by Christian Bowman RN 10/07/21 15:08: AT 1400 pt noted to follow command of hand grasp and moving lower extremities, fentanyl was paused at this time and prop was running at 15mcg/kg/min, pt shook head no in response to the question of are you in pain . I explained the reason of his hospital admission and the events up to this date. Original Note: Pt temp 101.3 this AM, zosyn started, ice emiliano under arms, t down to 99.9, blood cultures drawn, PP when suction needed will be ~43, at rest PP ~26. Bed locked and in lowest position, updated Ibis at bedside with silk worker.
[2021-10-07 17:30] LABS: Glucose, Whole Blood 147 mg/dL (60-115)
[2021-10-07] MEDS: Acetaminophen Oral Liquid 650 MG/20.3 ML SOLUTION PO (21:00)
[2021-10-08] VITALS (32 sets, daily range): BP systolic 100–156; BP diastolic 50–77; PULSE 52–79; RESP 16–27; TEMP 35–38.7; O2SAT 90–95
[2021-10-08] MEDS: Piperacillin Sodium/Tazobactam 3.375 GM in 0.9 % Sodium Chloride 50 ML IV ×4 (00:12→17:48)
[2021-10-08] MEDS: Heparin Sodium,Porcine 5,000 UNIT/ML VIAL 5000 UNIT SUBCUT ×3 (00:13→15:53)
[2021-10-08] MEDS: 0.9 % Sodium Chloride Flush 3 ML SYRINGE IVFLUSH ×2 (00:14→15:53)
[2021-10-08] MEDS: vancomycin HCL 1,000 MG, vancomycin HCL 750 MG in 0.9 % Sodium Chloride 500 ML 267.5 MG IV (00:41)
[2021-10-08 00:52] LABS: Glucose, Whole Blood 132 mg/dL (60-115)
[2021-10-08 01:14] LABS: Glucose, Whole Blood 121 mg/dL (60-115)
[2021-10-08] MEDS: propofoL 1,000 MG/100 ML VIAL 13.19 MG IVCONT ×4 (02:36→23:23)
[2021-10-08 05:20] LABS: VBG Base Excess 3.7 mmol/L; VBG HCO3 27 mmol/L (22-26); VBG pCO2 37 mmHg; VBG pH 7.46 (7.32-7.43); VBG pO2 51 mmHg
[2021-10-08 05:45] LABS: MANUAL DIFF FLAG NO
[2021-10-08 05:49] LABS: Basophils Absolute Auto 0.1 X10*3/uL (0.0-0.2); Basophils Percent Auto 0.4 % (0-2); Eosinophils Absolute Auto 0.4 X10*3/uL (0.0-0.4); Eosinophils Percent Auto 2.7 % (0-4); Hematocrit 32.4 % (42.0-52.0); Hemoglobin 10.3 g/dl (14.0-18.0); Imm Gran Abs Auto 0.13 X10*3/uL (0.00-0.03); Imm Gran Pct Auto 0.8 % (0.0-0.4); Lymphocytes Percent Auto 12.5 % (20-40); Mean Corpuscular HGB Conc 31.8 g/dl (31.0-36.0); Mean Corpuscular Hemoglobin 29.6 pg (27.0-33.0); Mean Corpuscular Volume 93.1 fL (80.0-98.0); Monocytes Absolute Auto 1.3 X10*3/uL (0.1-1.2); Monocytes Percent Auto 8.1 % (2-11); Neutrophils Absolute Auto 11.9 x10*3/uL (2.0-8.3); Neutrophils Percent Auto 75.5 % (45-73); Platelet Count 256 X10*3/uL (160-400); Red Blood Count 3.48 X10*6/uL (4.60-5.80); Red Cell Distribution Width 14.7 % (11.0-16.0); White Blood Count 15.7 X10*3/uL (4.8-10.8)
[2021-10-08 06:01] LABS: D Dimer High Sensitivity 1191 NG/ML
[2021-10-08 06:03] LABS: Albumin Level 3.5 g/dL (3.5-5.0); Anion Gap 15 (12-20); Blood Urea Nitrogen 35 mg/dL (9-16); Calcium 9.3 mg/dL (8.4-10.2); Carbon Dioxide 23 mmol/L (22-29); Chloride 107 mmol/L (96-108); Creatinine Clr Calc Pharmacy 59.3; Estimated Glomerular Filt Rate 49; Glucose Random 161 mg/dL (60-115); Magnesium 2.3 mg/dL (1.6-2.6); Phosphorus 3.4 mg/dL (2.7-4.5); Potassium 3.7 mmol/L (3.3-5.1); Sodium 141 mmol/L (135-145)
[2021-10-08 06:07] LABS: B Type Natriuretic Peptide 172 pg/mL (<100)
[2021-10-08 06:09] LABS: Alanine Aminotransferase 44 U/L (0-40); Alkaline Phosphatase 175 U/L (39-117); Anion Gap 11 (12-20); Aspartate Amino Transferase 44 U/L (5-37); Bilirubin Direct 0.8 mg/dL (0.0-0.5); Bilirubin Total 1.3 mg/dL (0.0-1.0); Blood Urea Nitrogen 31 mg/dL (9-16); Calcium 7.8 mg/dL (8.4-10.2); Carbon Dioxide 22 mmol/L (22-29); Chloride 113 mmol/L (96-108); Creatinine Clr Calc Pharmacy 73.2; Estimated Glomerular Filt Rate > 60; Glucose Random 141 mg/dL (60-115); Magnesium 1.8 mg/dL (1.6-2.6); Phosphorus 2.9 mg/dL (2.7-4.5); Potassium 3.1 mmol/L (3.3-5.1); Sodium 143 mmol/L (135-145); Total Protein 6.1 g/dL (6.5-8.0)
[2021-10-08 06:30] LABS: Glucose, Whole Blood 162 mg/dL (60-115)
[2021-10-08] MEDS: Insulin Lispro 100 UNIT/ML 3 ML VIAL SUBCUT ×3 (06:36→17:49)
--- NOTE | 2021-10-08 08:44 | P.PNCC_ITS ---
Subjective Subjective Date of Service: 10/08/21 Interval History: 61-year-old gentleman with underlying history of obesity, diabetes mellitus, hypertension, chronic alcohol abuse, liver cirrhosis admitted on 09/28/2021 with dyspnea and bloating. Patient was treated for community-acquired pneumonia. Hospital course significant for development of bradycardia and hypoxia with resultant a systolic cardiac arrest on 09/29/2021 with returned spontaneous circulation after 20 minutes of CPR, patient intubated during code and transferred to intensive care unit. In the intensive care unit patient with significant encephalopathy with very slow incremental improvements. Overnight moving all 4 extremities spontaneously. Critical Care Time (minutes): 45 Physical Exam Vital Signs: Vital Signs: Last Vital Signs Temp 100.9 F H 10/08/21 08:00 Pulse 70 10/08/21 08:00 Resp 22 H 10/08/21 08:00 BP 133/66 10/08/21 08:00 Pulse Ox 90 L 10/08/21 08:00 Oxygen Flow Rate 4 09/28/21 11:25 BMI result Body Mass Index 42.9 Const: General: no acute distress and other (Sedated on the vent) Eyes: Sclerae: sclerae normal EOM: EOMs intact bilaterally Neck: Neck: Yes no lymphadenopathy, Yes trachea midline and Yes supple Resp: Auscultation: crackles (Diffuse bilateral) Cardio: Rate: regular rate Rhythm: regular rhythm Heart sounds: no gallops, no murmurs and no rubs GI: Palpation (GI): Soft to palpation and Other GI palpation findings present ( Nontender) Auscultation: normal bowel sounds Extrem: General: No clubbing, No cyanosis and Yes edema (1+ bilateral) Objective Data Labs CBC & Chem 7: 10/08/21 05:16 10/08/21 05:16 Labs: Laboratory Results - last 24 hr 10/07/21 10/07/21 10/08/21 11:37 17:27 00:49 WBC RBC Hgb Hct MCV MCH MCHC RDW Plt Count MPV Immature Gran % (Auto) Neut % (Auto) Lymph % (Auto) [place] % (Auto) Eos % (Auto) Baso % (Auto) Lymph # (Auto) [place] # (Auto) Eos # (Auto) Baso # (Auto) Abs Immat Gran (auto) Absolute Neuts (auto) Absolute Nucleated RBC Nucleated RBC % (auto) D-Dimer High Sensitivty VBG pH VBG pCO2 VBG pO2 VBG HCO3 VBG O2 Saturation VBG Base Excess Sodium Potassium Chloride Carbon Dioxide Anion Gap BUN Creatinine Estim Creat Clear Calc Estimated GFR POC Glucose 118 H 147 H 132 H Random Glucose Calcium Phosphorus Magnesium Total Bilirubin Direct Bilirubin AST ALT Alkaline Phosphatase B-Natriuretic Peptide Total Protein Albumin 10/08/21 10/08/21 10/08/21 01:10 05:12 05:16 WBC 15.7 H RBC 3.48 L Hgb 10.3 L Hct 32.4 L MCV 93.1 MCH 29.6 MCHC 31.8 RDW 14.7 Plt Count 256 MPV 11.0 Immature Gran % (Auto) 0.8 H Neut % (Auto) 75.5 H Lymph % (Auto) 12.5 L [place] % (Auto) 8.1 Eos % (Auto) 2.7 Baso % (Auto) 0.4 Lymph # (Auto) 2.0 [place] # (Auto) 1.3 H Eos # (Auto) 0.4 Baso # (Auto) 0.1 Abs Immat Gran (auto) 0.13 H Absolute Neuts (auto) 11.9 H Absolute Nucleated RBC 0.000 Nucleated RBC % (auto) 0.0 D-Dimer High Sensitivty VBG pH 7.46 H VBG pCO2 37 VBG pO2 51 VBG HCO3 27 H VBG O2 Saturation 77.0 VBG Base Excess 3.7 Sodium Potassium Chloride Carbon Dioxide Anion Gap BUN Creatinine Estim Creat Clear Calc Estimated GFR POC Glucose 121 H Random Glucose Calcium Phosphorus Magnesium Total Bilirubin Direct Bilirubin AST ALT Alkaline Phosphatase B-Natriuretic Peptide Total Protein Albumin 10/08/21 10/08/21 10/08/21 05:16 05:16 05:16 WBC RBC Hgb Hct MCV MCH MCHC RDW Plt Count MPV Immature Gran % (Auto) Neut % (Auto) Lymph % (Auto) [place] % (Auto) Eos % (Auto) Baso % (Auto) Lymph # (Auto) [place] # (Auto) Eos # (Auto) Baso # (Auto) Abs Immat Gran (auto) Absolute Neuts (auto) Absolute Nucleated RBC Nucleated RBC % (auto) D-Dimer High Sensitivty 1191 VBG pH VBG pCO2 VBG pO2 VBG HCO3 VBG O2 Saturation VBG Base Excess Sodium 143 Potassium 3.1 L D Chloride 113 H Carbon Dioxide 22 Anion Gap 11 L BUN 31 H Creatinine 1.20 Estim Creat Clear Calc 73.2 Estimated GFR > 60 POC Glucose Random Glucose 141 H Calcium 7.8 L D Phosphorus 2.9 Magnesium 1.8 Total Bilirubin 1.3 H Direct Bilirubin 0.8 H AST 44 H ALT 44 H Alkaline Phosphatase 175 H B-Natriuretic Peptide 172 H Total Protein 6.1 L Albumin 3.0 L D 10/08/21 10/08/21 05:16 06:26 WBC RBC Hgb Hct MCV MCH MCHC RDW Plt Count MPV Immature Gran % (Auto) Neut % (Auto) Lymph % (Auto) [place] % (Auto) Eos % (Auto) Baso % (Auto) Lymph # (Auto) [place] # (Auto) Eos # (Auto) Baso # (Auto) Abs Immat Gran (auto) Absolute Neuts (auto) Absolute Nucleated RBC Nucleated RBC % (auto) D-Dimer High Sensitivty VBG pH VBG pCO2 VBG pO2 VBG HCO3 VBG O2 Saturation VBG Base Excess Sodium 141 Potassium 3.7 Chloride 107 Carbon Dioxide 23 Anion Gap 15 BUN 35 H Creatinine 1.48 H Estim Creat Clear Calc 59.3 Estimated GFR 49 POC Glucose 162 H Random Glucose 161 H Calcium 9.3 D Phosphorus 3.4 Magnesium 2.3 Total Bilirubin Direct Bilirubin AST ALT Alkaline Phosphatase B-Natriuretic Peptide Total Protein Albumin 3.5 Microbiology Microbiology Results: Microbiology 10/04/21 18:08 Blood - Venous Blood Culture - Preliminary No growth after 48 hours. 10/04/21 18:08 Blood - Venous Blood Culture - Preliminary No growth after 48 hours. 10/04/21 17:56 Sputum - Suctioned Gram Stain - Final 10/04/21 17:56 Sputum - Suctioned Sputum Culture - Final No growth. 09/28/21 13:00 Blood - Venous Blood Culture - Final No growth after 5 days. 09/28/21 13:00 Blood - Venous Blood Culture - Final No growth after 5 days. 10/01/21 14:44 Sputum - Suctioned Gram Stain - Final 10/01/21 14:44 Sputum - Suctioned Sputum Culture - Final No growth. 09/29/21 05:10 Sputum - Suctioned Gram Stain - Final 09/29/21 05:10 Sputum - Suctioned Sputum Culture - Final No growth. 09/29/21 Unknown Urine clean catch - Clean Catch Midstream Urine Culture - Final No growth. Progress Note: A&P Assessment and plan (1) Congestive heart failure: Status: Acute (2) Diabetes: Status: Acute (3) Acute respiratory failure: Status: Acute (4) Morbid obesity due to excess calories: Status: Acute (5) Anoxic encephalopathy: Status: Acute (6) Cardiac arrest due to other underlying condition: Status: Acute (7) Aspiration pneumonia: Status: Acute (8) Acute renal failure: Status: Acute (9) CKD (chronic kidney disease) stage 3, GFR 30-59 ml/min: Status: Acute (10) Liver cirrhosis: Status: Acute Plan Assessment: 61-year-old gentleman admitted with dyspnea and hypoxemia and treated for community-acquired pneumonia with hospital course complicated by asystolic cardiac arrest, now with prolonged encephalopathy, still requiring ventilatory support. Plan: Neuro: Prolonged encephalopathy post cardiac arrest with slow incremental improvements, now moving all 4 extremities spontaneously Continue to monitor clinically. Cardiac: No acute issues. Pulmonary: Acute respiratory failure with possible aspiration component initially, continue to titrate off ventilatory support as tolerated. still with poor tolerance of pressure support trial. Renal: Chronic kidney disease, acute kidney injury component improved. Non oliguric. Continue to monitor renal indices and urine output. Now about 5 L positive, started on Lasix drip. Endo: No acute issues. Underlying diabetes mellitus. GI: No acute issues. Underlying liver cirrhosis, likely alcohol related. ID: On empiric Zosyn, pending cultures. Heme/Onc: No acute issues. Psych: No acute issues. Miscellaneous: No acute issues. Prophylaxis: Heparin, famotidine Diet: Tube feeds Critical care time spent: 45 minutes Quality Stroke Does the patient have a stroke diagnosis?: No VTE Prior VTE?: No VTE Risk Level:: Medical - moderate - high VTE Device Contraindication: N/A - Device Ordered VTE Drug Contraindication: Treatment Not Indicated
--- NOTE | 2021-10-08 10:08 | MHC.CLN ---
F/U PT REMAINS INTUBATED PT RECEIVING TF GLUCERNA AT MAX GOAL RATE 50 ML/HR WITH PROSOURCE TID AND 240ML OF FREE WATER FLUSHES Q 6HRS PROVIDES 1380KCALS (1728KCALS WITH SEDATION; 23KCALS/KG), 95G TOTAL PROTEIN (1.25G/KG), 1984 ML TOTAL FREE WATER FROM FORMULA AND FLUSHES (26ML/KG) PT TOLERATING TF WITH LOW RESIDUALS CONTINUE TO MONITOR TOLERANCE, RESIDUALS AND LYTES
[2021-10-08] MEDS: Potassium Chloride/H20 40 MEQ/100 ML PIGGYBACK 100 MEQ IV (10:09)
[2021-10-08] MEDS: Thiamine HCL 100 MG TABLET OG-TUBE (10:09)
[2021-10-08] MEDS: Folic Acid 1 MG TABLET PO (10:09)
[2021-10-08] MEDS: Chlorhexidine Gluc Oral Rinse 15 ML MOUTHWASH BUCCAL ×3 (10:09→20:27)
[2021-10-08] MEDS: Furosemide 200 MG in 0.9 % Sodium Chloride 80 ML IVCONT (10:09)
[2021-10-08] MEDS: Nystatin Powder 15 GM BOTTLE 1 APPL TOPICAL ×3 (10:10→20:32)
[2021-10-08 11:26] LABS: Venous Blood Gas Refer to POC result
[2021-10-08] MEDS: vancomycin HCL 750 MG in 0.9 % Sodium Chloride 250 ML 265 MG IV (11:35)
[2021-10-08 11:56] LABS: Glucose, Whole Blood 161 mg/dL (60-115)
--- NOTE | 2021-10-08 13:02 | MHC.CM.PN ---
Pt continues in ICU on ventilatory support: some ability to follow simple commands but unable to fully assess neurological functioning. Met with pt's brother to discuss guardianship progression: Per family discussions, the guardians will be pt's long time partner, Ibis Loza and his daughter, Hui at [phone]. Both parties agree to serve as coguardians and verbalize understanding of the need to make care decisions on behalf of the pt until he is able to do so for himself. CM to continue pursuit of guardianship in anticipation of rehab placement. Goals of care today are to continue reduction of sedation and ventilator support.
--- NOTE | 2021-10-08 14:53 | PC.NURSE ---
Pt placed on PSV 15/5 at 1325 FiO2 45%, RR 23-30 Ve 8.6L/min, Vt ~380ml, PP 20, fentanyl at 50mcg/hr and propofol at 20mcg/kg/min, pt opens eyes to voice temporarily tracks, grasps hands on command, SINGH spontaneously. Attempted to pause fentanyl drip and lowered propofol to 10mcg/kg/min, however, pt became too tachypniec RR 45 incessantly coughing despite inline suctioning, currently 10/5 psv w/ RT at bedside.
[2021-10-08 17:41] LABS: Glucose, Whole Blood 159 mg/dL (60-115)
[2021-10-08 18:42] LABS: Anion Gap 12 (12-20); Blood Urea Nitrogen 30 mg/dL (9-16); Calcium 8.7 mg/dL (8.4-10.2); Carbon Dioxide 23 mmol/L (22-29); Chloride 110 mmol/L (96-108); Estimated Glomerular Filt Rate > 60; Glucose Random 166 mg/dL (60-115); Potassium 3.9 mmol/L (3.3-5.1); Sodium 141 mmol/L (135-145)
[2021-10-08] MEDS: Acetaminophen Oral Liquid 650 MG/20.3 ML SOLUTION PO (20:27)
[2021-10-08] MEDS: fentaNYL citrate/NS 1,000 MCG/100 ML PLAST..BAG 5 MCG IVCONT (21:58)
[2021-10-09] VITALS (28 sets, daily range): BP systolic 103–161; BP diastolic 53–82; PULSE 50–88; RESP 11–38; TEMP 34–38.6; O2SAT 91–97
[2021-10-09] MEDS: Piperacillin Sodium/Tazobactam 3.375 GM in 0.9 % Sodium Chloride 50 ML IV ×5 (01:14→23:58)
[2021-10-09] MEDS: vancomycin HCL 750 MG in 0.9 % Sodium Chloride 250 ML 265 MG IV ×3 (01:15→23:59)
[2021-10-09] MEDS: Heparin Sodium,Porcine 5,000 UNIT/ML VIAL 5000 UNIT SUBCUT ×3 (01:17→15:30)
[2021-10-09] MEDS: 0.9 % Sodium Chloride Flush 3 ML SYRINGE IVFLUSH ×3 (01:39→15:23)
[2021-10-09 01:57] LABS: Glucose, Whole Blood 138 mg/dL (60-115)
[2021-10-09 05:22] LABS: VBG Base Excess 2.1 mmol/L; VBG HCO3 25 mmol/L (22-26); VBG pCO2 34 mmHg; VBG pH 7.46 (7.32-7.43); VBG pO2 49 mmHg
[2021-10-09 05:27] LABS: MANUAL DIFF FLAG NO
[2021-10-09 05:33] LABS: Basophils Absolute Auto 0.1 X10*3/uL (0.0-0.2); Basophils Percent Auto 0.3 % (0-2); Eosinophils Absolute Auto 0.4 X10*3/uL (0.0-0.4); Eosinophils Percent Auto 2.6 % (0-4); Hematocrit 33.7 % (42.0-52.0); Hemoglobin 10.6 g/dl (14.0-18.0); Imm Gran Abs Auto 0.14 X10*3/uL (0.00-0.03); Imm Gran Pct Auto 0.9 % (0.0-0.4); Mean Corpuscular HGB Conc 31.5 g/dl (31.0-36.0); Mean Corpuscular Volume 92.3 fL (80.0-98.0); Mean Platelet Volume 10.6 fL (9.4-12.4); Monocytes Absolute Auto 1.4 X10*3/uL (0.1-1.2); Monocytes Percent Auto 8.4 % (2-11); Neutrophils Absolute Auto 12.3 x10*3/uL (2.0-8.3); Neutrophils Percent Auto 75.8 % (45-73); Platelet Count 299 X10*3/uL (160-400); Red Blood Count 3.65 X10*6/uL (4.60-5.80); Red Cell Distribution Width 14.7 % (11.0-16.0); White Blood Count 16.3 X10*3/uL (4.8-10.8)
[2021-10-09] MEDS: propofoL 1,000 MG/100 ML VIAL 13.19 MG IVCONT (05:33)
[2021-10-09 06:08] LABS: Albumin Level 3.6 g/dL (3.5-5.0); Anion Gap 15 (12-20); Blood Urea Nitrogen 32 mg/dL (9-16); Calcium 9.3 mg/dL (8.4-10.2); Carbon Dioxide 23 mmol/L (22-29); Chloride 109 mmol/L (96-108); Creatinine Clr Calc Pharmacy 58.1; Estimated Glomerular Filt Rate 48; Glucose Random 187 mg/dL (60-115); Magnesium 1.9 mg/dL (1.6-2.6); Phosphorus 3.8 mg/dL (2.7-4.5); Potassium 3.7 mmol/L (3.3-5.1); Sodium 143 mmol/L (135-145)
[2021-10-09 06:17] LABS: Glucose, Whole Blood 186 mg/dL (60-115)
[2021-10-09] MEDS: Insulin Lispro 100 UNIT/ML 3 ML VIAL SUBCUT ×3 (06:25→17:34)
[2021-10-09 07:08] LABS: Venous Blood Gas Refer to POC result
[2021-10-09] MEDS: Thiamine HCL 100 MG TABLET OG-TUBE (08:17)
[2021-10-09] MEDS: Folic Acid 1 MG TABLET PO (08:17)
[2021-10-09] MEDS: Furosemide 200 MG in 0.9 % Sodium Chloride 80 ML IVCONT (08:18)
[2021-10-09] MEDS: Chlorhexidine Gluc Oral Rinse 15 ML MOUTHWASH BUCCAL ×2 (08:18→21:27)
[2021-10-09] MEDS: Nystatin Powder 15 GM BOTTLE 1 APPL TOPICAL ×3 (08:20→21:28)
--- NOTE | 2021-10-09 08:31 | P.PNCC_ITS ---
Subjective Subjective Date of Service: 10/09/21 Interval History: 61-year-old gentleman with underlying history of obesity, diabetes mellitus, hypertension, chronic alcohol abuse, liver cirrhosis admitted on 09/28/2021 with dyspnea and bloating. Patient was treated for community-acquired pneumonia. Hospital course significant for development of bradycardia and hypoxia with resultant a systolic cardiac arrest on 09/29/2021 with returned spontaneous circulation after 20 minutes of CPR, patient intubated during code and transferred to intensive care unit. In the intensive care unit patient with significant encephalopathy with very slow incremental improvements. Mental status further improving overnight. Critical Care Time (minutes): 45 Physical Exam Vital Signs: Vital Signs: Last Vital Signs Temp 101.1 F H 10/09/21 08:00 Pulse 75 10/09/21 08:00 Resp 21 H 10/09/21 08:00 BP 141/80 H 10/09/21 08:00 Pulse Ox 91 L 10/09/21 08:00 Oxygen Flow Rate 4 09/28/21 11:25 BMI result Body Mass Index 42.9 Const: General: no acute distress, alert, awake and other ( Arousable with sedation vacation) Eyes: Sclerae: sclerae normal EOM: EOMs intact bilaterally Neck: Neck: Yes no lymphadenopathy, Yes trachea midline and Yes supple Resp: Auscultation: clear to auscultation bilaterally Cardio: Rate: regular rate Rhythm: regular rhythm Heart sounds: no gall ops, no murmurs and no rubs GI: Palpation (GI): Soft to palpation and Other GI palpation findings present ( Nontender) Auscultation: normal bowel sounds Extrem: General: No clubbing, No cyanosis and Yes edema ( trace bilateral) Objective Data Labs CBC & Chem 7: 10/09/21 05:15 10/09/21 05:15 Labs: Laboratory Results - last 24 hr 10/08/21 10/08/21 10/08/21 11:54 17:38 18:16 WBC RBC Hgb Hct MCV MCH MCHC RDW Plt Count MPV Immature Gran % (Auto) Neut % (Auto) Lymph % (Auto) [place] % (Auto) Eos % (Auto) Baso % (Auto) Lymph # (Auto) [place] # (Auto) Eos # (Auto) Baso # (Auto) Abs Immat Gran (auto) Absolute Neuts (auto) Absolute Nucleated RBC Nucleated RBC % (auto) VBG pH VBG pCO2 VBG pO2 VBG HCO3 VBG O2 Saturation VBG Base Excess Sodium 141 Potassium 3.9 Chloride 110 H Carbon Dioxide 23 Anion Gap 12 BUN 30 H Creatinine 1.22 Estim Creat Clear Calc 72.0 Estimated GFR > 60 POC Glucose 161 H 159 H Random Glucose 166 H Calcium 8.7 D Phosphorus Magnesium Albumin 10/09/21 10/09/21 10/09/21 01:20 05:13 05:15 WBC 16.3 H RBC 3.65 L Hgb 10.6 L Hct 33.7 L MCV 92.3 MCH 29.0 MCHC 31.5 RDW 14.7 Plt Count 299 MPV 10.6 Immature Gran % (Auto) 0.9 H Neut % (Auto) 75.8 H Lymph % (Auto) 12.0 L [place] % (Auto) 8.4 Eos % (Auto) 2.6 Baso % (Auto) 0.3 Lymph # (Auto) 2.0 [place] # (Auto) 1.4 H Eos # (Auto) 0.4 Baso # (Auto) 0.1 Abs Immat Gran (auto) 0.14 H Absolute Neuts (auto) 12.3 H Absolute Nucleated RBC 0.000 Nucleated RBC % (auto) 0.0 VBG pH 7.46 H VBG pCO2 34 VBG pO2 49 VBG HCO3 25 VBG O2 Saturation 75.0 VBG Base Excess 2.1 Sodium Potassium Chloride Carbon Dioxide Anion Gap BUN Creatinine Estim Creat Clear Calc Estimated GFR POC Glucose 138 H Random Glucose Calcium Phosphorus Magnesium Albumin 10/09/21 10/09/21 05:15 06:14 WBC RBC Hgb Hct MCV MCH MCHC RDW Plt Count MPV Immature Gran % (Auto) Neut % (Auto) Lymph % (Auto) [place] % (Auto) Eos % (Auto) Baso % (Auto) Lymph # (Auto) [place] # (Auto) Eos # (Auto) Baso # (Auto) Abs Immat Gran (auto) Absolute Neuts (auto) Absolute Nucleated RBC Nucleated RBC % (auto) VBG pH VBG pCO2 VBG pO2 VBG HCO3 VBG O2 Saturation VBG Base Excess Sodium 143 Potassium 3.7 Chloride 109 H Carbon Dioxide 23 Anion Gap 15 BUN 32 H Creatinine 1.51 H Estim Creat Clear Calc 58.1 Estimated GFR 48 POC Glucose 186 H Random Glucose 187 H Calcium 9.3 D Phosphorus 3.8 Magnesium 1.9 Albumin 3.6 Microbiology Microbiology Results: Microbiology 10/07/21 10:30 Blood - Venous Blood Culture - Preliminary No growth after 24 hours. 10/07/21 10:30 Blood - Venous Blood Culture - Preliminary No growth after 24 hours. 10/04/21 18:08 Blood - Venous Blood Culture - Preliminary No growth after 48 hours. 10/04/21 18:08 Blood - Venous Blood Culture - Preliminary No growth after 48 hours. 10/04/21 17:56 Sputum - Suctioned Gram Stain - Final 10/04/21 17:56 Sputum - Suctioned Sputum Culture - Final No growth. 09/28/21 13:00 Blood - Venous Blood Culture - Final No growth after 5 days. 09/28/21 13:00 Blood - Venous Blood Culture - Final No growth after 5 days. 10/01/21 14:44 Sputum - Suctioned Gram Stain - Final 10/01/21 14:44 Sputum - Suctioned Sputum Culture - Final No growth. 09/29/21 05:10 Sputum - Suctioned Gram Stain - Final 09/29/21 05:10 Sputum - Suctioned Sputum Culture - Final No growth. 09/29/21 Unknown Urine clean catch - Clean Catch Midstream Urine Culture - Final No growth. Progress Note: A&P Assessment and plan (1) Congestive heart failure: Status: Acute (2) Diabetes: Status: Acute (3) Acute respiratory failure: Status: Acute (4) Morbid obesity due to excess calories: Status: Acute (5) Anoxic encephalopathy: Status: Acute (6) Cardiac arrest due to other underlying condition: Status: Acute (7) Aspiration pneumonia: Status: Acute (8) Acute renal failure: Status: Acute (9) CKD (chronic kidney disease) stage 3, GFR 30-59 ml/min: Status: Acute (10) Liver cirrhosis: Status: Acute Plan Assessment: 61-year-old gentleman admitted with dyspnea and hypoxemia and treated for community-acquired pneumonia with hospital course complicated by asystolic cardiac arrest, now with prolonged encephalopathy, still requiring ve ntilatory support. Plan: Neuro: Prolonged encephalopathy post cardiac arrest with slow incremental improvements, now moving all 4 extremities spontaneously. Continue to monitor clinically. Cardiac: No acute issues. Pulmonary: Acute respiratory failure with possible aspiration component initial ly, continue to titrate off ventilatory support as tolerated. Still with poor tolerance of pressure support trial. Renal: Chronic kidney disease, acute kidney injury component improved. Non oliguric. Continue to monitor renal indices and urine output. Continues on Lasix drip. Endo: No acute issues. Underlying diabetes mellitus. GI: No acute issues. Underlying liver cirrhosis, likely alcohol related. ID: On empiric vancomycin/Zosyn, pending cultures. Heme/Onc: No acute issues. Psych: No acute issues. Miscellaneous: No acute issues. Prophylaxis: Heparin, famotidine Diet: Tube feeds Critical care time spent: 45 minutes Quality Stroke Does the patient have a stroke diagnosis?: No VTE Prior VTE?: No VTE Risk Level:: Medical - moderate - high VTE Device Contraindication: N/A - Device Ordered VTE Drug Contraindication: Treatment Not Indicated
[2021-10-09 10:56] LABS: Vancomycin Trough 15.6 mcg/mL (10.0-20.0)
--- NOTE | 2021-10-09 11:05 | PHA.PROG ---
Admission Date/Time: September 28, 2021 15:33 Indication: Weight in k.9 kg Adjusted body weight in Kg: [place] body weight in Kg: Obesity Dosing Indication % IBW: Serum Creatinine - Last 168 Hours 10/03/21 10/04/21 10/05/21 05:05 05:16 05:20 Creatinine 1.45 H 1.56 H 1.34 10/06/21 10/07/21 10/08/21 05:14 05:26 05:16 Creatinine 1.30 1.52 H 1.20 10/08/21 10/08/21 10/09/21 05:16 18:16 05:15 Creatinine 1.48 H 1.22 1.51 H Estimated CrCl and GFR - Last 168 Hours 10/03/21 10/04/21 10/05/21 05:05 05:16 05:20 Estim Creat Clear Calc 60.5 56.3 65.5 Estimated GFR 50 46 55 10/06/21 10/07/21 10/08/21 05:14 05:26 05:16 Estim Creat Clear Calc 67.5 57.8 73.2 Estimated GFR 57 47 > 60 10/08/21 10/08/21 10/09/21 05:16 18:16 05:15 Estim Creat Clear Calc 59.3 72.0 58.1 Estimated GFR 49 > 60 48 Vancomycin Loading Dose: 1750 x1 Current Vancomycin Dosing Regimen: 750 q12h Vancomycin Monitoring using AUC goal of 400 - 600 range with trough as surrogate marker: Last trough came back at 15.6. Will continue the current regimen and monitor renal function. Model is predicting a AUC of 452 and a trough of 12.8. Date and Time for next Vancomycin Level to be drawn: 10/10 @ 1030 Vancomycin Trough 15.6 mcg/mL (10.0-20.0) 10/09/21 10:24 Pharmacist Comments on Vancomycin Plan: Vancomycin dosing will take advantage of [facility] as a clinical decision support tool that uses Bayesian modeling to calculate individual patient's pharmacokinetic parameters and forecast the patient's drug concentration time course with the target goal AUC 24 range of 400 - 600 mg/L/hr.
[2021-10-09 11:36] LABS: Glucose, Whole Blood 179 mg/dL (60-115)
--- NOTE | 2021-10-09 16:21 | MHC.CM.PN ---
Pt extubated today and on nasal cannula O2. [facility] referrals sent to start d/c planning process: pt will need PT/OT evals and completion of a HCP (if he is able to do so) or continuation with guardianship pursuant. CM to follow
[2021-10-09 17:27] LABS: Glucose, Whole Blood 168 mg/dL (60-115)
[2021-10-09 18:58] LABS: Anion Gap 16 (12-20); Blood Urea Nitrogen 29 mg/dL (9-16); Calcium 9.8 mg/dL (8.4-10.2); Carbon Dioxide 27 mmol/L (22-29); Chloride 106 mmol/L (96-108); Creatinine Clr Calc Pharmacy 58.9; Estimated Glomerular Filt Rate 48; Glucose Random 164 mg/dL (60-115); Potassium 3.8 mmol/L (3.3-5.1); Sodium 145 mmol/L (135-145)
[2021-10-09 23:31] LABS: Glucose, Whole Blood 162 mg/dL (60-115)
[2021-10-10] VITALS (16 sets, daily range): BP systolic 111–146; BP diastolic 63–76; PULSE 54–68; RESP 14–39; TEMP 37.3–37.6; O2SAT 89–94
[2021-10-10] MEDS: Heparin Sodium,Porcine 5,000 UNIT/ML VIAL 5000 UNIT SUBCUT ×3 (00:05→17:12)
[2021-10-10] MEDS: Insulin Lispro 100 UNIT/ML 3 ML VIAL SUBCUT ×5 (00:07→21:08)
[2021-10-10 05:44] LABS: VBG Base Excess 5.1 mmol/L; VBG HCO3 29 mmol/L (22-26); VBG pCO2 41 mmHg; VBG pH 7.45 (7.32-7.43); VBG pO2 47 mmHg
[2021-10-10 06:00] LABS: MANUAL DIFF FLAG NO
[2021-10-10 06:01] LABS: Basophils Absolute Auto 0.1 X10*3/uL (0.0-0.2); Basophils Percent Auto 0.5 % (0-2); Eosinophils Absolute Auto 0.4 X10*3/uL (0.0-0.4); Eosinophils Percent Auto 2.9 % (0-4); Hematocrit 34.5 % (42.0-52.0); Hemoglobin 10.9 g/dl (14.0-18.0); Imm Gran Abs Auto 0.07 X10*3/uL (0.00-0.03); Imm Gran Pct Auto 0.5 % (0.0-0.4); Lymphocytes Absolute Auto 1.6 X10*3/uL (1.2-4.9); Lymphocytes Percent Auto 10.1 % (20-40); Mean Corpuscular HGB Conc 31.6 g/dl (31.0-36.0); Mean Corpuscular Hemoglobin 29.1 pg (27.0-33.0); Mean Platelet Volume 10.7 fL (9.4-12.4); Monocytes Absolute Auto 1.3 X10*3/uL (0.1-1.2); Monocytes Percent Auto 8.2 % (2-11); Neutrophils Absolute Auto 11.9 x10*3/uL (2.0-8.3); Neutrophils Percent Auto 77.8 % (45-73); Platelet Count 335 X10*3/uL (160-400); Red Blood Count 3.75 X10*6/uL (4.60-5.80); Red Cell Distribution Width 14.8 % (11.0-16.0); White Blood Count 15.3 X10*3/uL (4.8-10.8)
[2021-10-10 06:16] LABS: Glucose, Whole Blood 153 mg/dL (60-115)
[2021-10-10 06:17] LABS: Albumin Level 3.8 g/dL (3.5-5.0); Anion Gap 17 (12-20); Blood Urea Nitrogen 36 mg/dL (9-16); Calcium 10.1 mg/dL (8.4-10.2); Carbon Dioxide 27 mmol/L (22-29); Chloride 105 mmol/L (96-108); Creatinine Clr Calc Pharmacy 55.6; Estimated Glomerular Filt Rate 45; Glucose Random 156 mg/dL (60-115); Magnesium 1.8 mg/dL (1.6-2.6); Potassium 3.9 mmol/L (3.3-5.1); Sodium 145 mmol/L (135-145)
[2021-10-10 06:49] LABS: Venous Blood Gas Refer to POC result
[2021-10-10] MEDS: Piperacillin Sodium/Tazobactam 3.375 GM in 0.9 % Sodium Chloride 50 ML IV ×3 (08:53→18:16)
[2021-10-10] MEDS: 0.9 % Sodium Chloride Flush 3 ML SYRINGE IVFLUSH ×2 (08:53)
[2021-10-10] MEDS: Nystatin Powder 15 GM BOTTLE 1 APPL TOPICAL ×3 (08:54→21:10)
--- NOTE | 2021-10-10 08:59 | PM.CCPN ---
Subjective Subjective Date of Service: 10/10/21 Interval History: 61-year-old gentleman with underlying history of obesity, diabetes mellitus, hypertension, chronic alcohol abuse, liver cirrhosis admitted on 09/28/2021 with dyspnea and bloating. Patient was treated for community-acquired pneumonia. Hospital course significant for development of bradycardia and hypoxia with resultant a systolic cardiac arrest on 09/29/2021 with returned spontaneous circulation after 20 minutes of CPR, patient intubated during code and transferred to intensive care unit. In the intensive care unit patient with significant encephalopathy with very slow incremental improvements. Extubated 10/09/2021. No events overnight. Critical Care Time (minutes): 0 Physical Exam Vital Signs: Vital Signs: Last Vital Signs Temp 99.5 F 10/10/21 08:00 Pulse 63 10/10/21 08:00 Resp 33 H 10/10/21 08:00 BP 132/71 10/10/21 08:00 Pulse Ox 90 L 10/10/21 08:00 Oxygen Flow Rate 4 09/28/21 11:25 BMI result Body Mass Index 42.9 Const: General: no acute distress, alert and awake Eyes: Sclerae: sclerae normal EOM: EOMs intact bilaterally Neck: Neck: Yes no lymphadenopathy, Yes trachea midline and Yes supple Resp: Effort & Inspection: normal respiratory effort and no respiratory distress Auscultation: clear to auscultation bilaterally Cardio: Rate: regular rate Rhythm: regular rhythm Heart sounds: no gallops, no murmurs and no rubs GI: Palpation (GI): Soft to palpation and Other GI palpation findings present ( Nontender) Auscultation: normal bowel sounds Extrem: General: Yes no pedal edema, No clubbing and No cyanosis Objective Data Labs CBC & Chem 7: 10/10/21 05:38 10/10/21 05:38 Labs: Laboratory Results - last 24 hr 10/09/21 10/09/21 10/09/21 10:24 11:28 17:24 WBC RBC Hgb Hct MCV MCH MCHC RDW Plt Count MPV Immature Gran % (Auto) Neut % (Auto) Lymph % (Auto) [place] % (Auto) Eos % (Auto) Baso % (Auto) Lymph # (Auto) [place] # (Auto) Eos # (Auto) Baso # (Auto) Abs Immat Gran (auto) Absolute Neuts (auto) Absolute Nucleated RBC Nucleated RBC % (auto) VBG pH VBG pCO2 VBG pO2 VBG HCO3 VBG O2 Saturation VBG Base Excess Sodium Potassium Chloride Carbon Dioxide Anion Gap BUN Creatinine Estim Creat Clear Calc Estimated GFR POC Glucose 179 H 168 H Random Glucose Calcium Phosphorus Magnesium Albumin Vancomycin Trough 15.6 10/09/21 10/09/21 10/10/21 18:01 23:25 05:37 WBC RBC Hgb Hct MCV MCH MCHC RDW Plt Count MPV Immature Gran % (Auto) Neut % (Auto) Lymph % (Auto) [place] % (Auto) Eos % (Auto) Baso % (Auto) Lymph # (Auto) [place] # (Auto) Eos # (Auto) Baso # (Auto) Abs Immat Gran (auto) Absolute Neuts (auto) Absolute Nucleated RBC Nucleated RBC % (auto) VBG pH 7.45 H VBG pCO2 41 VBG pO2 47 VBG HCO3 29 H VBG O2 Saturation 70.0 VBG Base Excess 5.1 Sodium 145 Potassium 3.8 Chloride 106 Carbon Dioxide 27 Anion Gap 16 BUN 29 H Creatinine 1.49 H Estim Creat Clear Calc 58.9 Estimated GFR 48 POC Glucose 162 H Random Glucose 164 H Calcium 9.8 Phosphorus Magnesium Albumin Vancomycin Trough 10/10/21 10/10/21 10/10/21 05:38 05:38 06:02 WBC 15.3 H RBC 3.75 L Hgb 10.9 L Hct 34.5 L MCV 92.0 MCH 29.1 MCHC 31.6 RDW 14.8 Plt Count 335 MPV 10.7 Immature Gran % (Auto) 0.5 H Neut % (Auto) 77.8 H Lymph % (Auto) 10.1 L [place] % (Auto) 8.2 Eos % (Auto) 2.9 Baso % (Auto) 0.5 Lymph # (Auto) 1.6 [place] # (Auto) 1.3 H Eos # (Auto) 0.4 Baso # (Auto) 0.1 Abs Immat Gran (auto) 0.07 H Absolute Neuts (auto) 11.9 H Absolute Nucleated RBC 0.000 Nucleated RBC % (auto) 0.0 VBG pH VBG pCO2 VBG pO2 VBG HCO3 VBG O2 Saturation VBG Base Excess Sodium 145 Potassium 3.9 Chloride 105 Carbon Dioxide 27 Anion Gap 17 BUN 36 H Creatinine 1.58 H Estim Creat Clear Calc 55.6 Estimated GFR 45 POC Glucose 153 H Random Glucose 156 H Calcium 10.1 Phosphorus 5.0 H Magnesium 1.8 Albumin 3.8 Vancomycin Trough Microbiology Microbiology Results: Microbiology 10/04/21 18:08 Blood - Venous Blood Culture - Final No growth after 5 days. 10/04/21 18:08 Blood - Venous Blood Culture - Final No growth after 5 days. 10/07/21 10:30 Blood - Venous Blood Culture - Preliminary No growth after 48 hours. 10/07/21 10:30 Blood - Venous Blood Culture - Preliminary No growth after 48 hours. 10/04/21 17:56 Sputum - Suctioned Gram Stain - Final 10/04/21 17:56 Sputum - Suctioned Sputum Culture - Final No growth. 09/28/21 13:00 Blood - Venous Blood Culture - Final No growth after 5 days. 09/28/21 13:00 Blood - Venous Blood Culture - Final No growth after 5 days. 10/01/21 14:44 Sputum - Suctioned Gram Stain - Final 10/01/21 14:44 Sputum - Suctioned Sputum Culture - Final No growth. 09/29/21 05:10 Sputum - Suctioned Gram Stain - Final 09/29/21 05:10 Sputum - Suctioned Sputum Culture - Final No growth. 09/29/21 Unknown Urine clean catch - Clean Catch Midstream Urine Culture - Final No growth. Progress Note: A&P Assessment and plan (1) Congestive heart failure: Status: Acute (2) Diabetes: Status: Acute (3) Acute respiratory failure: Status: Acute (4) Morbid obesity due to excess calories: Status: Acute (5) Cardiac arrest due to other underlying condition: Status: Acute (6) Aspiration pneumonia: Status: Acute (7) Acute renal failure: Status: Acute (8) CKD (chronic kidney disease) stage 3, GFR 30-59 ml/min: Status: Acute (9) Liver cirrhosis: Status: Acute (10) DARRIAN (obstructive sleep apnea): Status: Acute Plan Assessment: 61-year-old gentleman admitted with dyspnea and hypoxemia and treated for community-acquired pneumonia with hospital course complicated by asystolic cardiac arrest, initially with prolonged encephalopathy, now significantly improved. Plan: Neuro: Prolonged encephalopathy post cardiac arrest now significantly improved, answers simple questions in [place]er. Cardiac: No acute issues. Pulmonary: Acute respiratory failure with possible aspiration component initially, requiring ventilatory support post CPR. Extubated 10/09/2021. Renal: Chronic kidney disease, acute kidney injury component improved. Non oliguric. Continue to monitor renal indices and urine output. Endo: No acute issues. Underlying diabetes mellitus. GI: No acute issues. Underlying liver cirrhosis, likely alcohol related. ID: On empiric Zosyn, pending cultures. Heme/Onc: No acute issues. Psych: No acute issues. Miscellaneous: No acute issues. Prophylaxis: Heparin Diet: pending swallow evaluation Quality Stroke Does the patient have a stroke diagnosis?: No VTE Prior VTE?: No VTE Risk Level:: Medical - moderate - high VTE Device Contraindication: N/A - Device Ordered VTE Drug Contraindication: Treatment Not Indicated
[2021-10-10] MEDS: Magnesium Sulfate/H2O 2 GM/50 ML PIGGYBACK IV (09:00)
--- NOTE | 2021-10-10 09:50 | MHC.CLN ---
F/U PT EXTUBATED PT IS CURRENTLY NPO AWAITING SWALLOW EVAL WHEN DIET TO ADVANCE, RECOMMEND 1800DM 2GM NA IN ADDITION TO HEEL STAINER RECOMMENDATIONS FOLLOWING
--- NOTE | 2021-10-10 11:03 | MHC.CM.PN ---
Pt extubated and able to answer simple questions in Macedonian. A&O x 3: unsure of date. Using Macedonian interpreting technology, pt able to name Ibis Loza, his significant other as his health care proxy and his daughter, Yoselyn, as his alternate. Ibis in visiting and is agreeing to appointment. HCP signed on behalf of pt with witnesses. Guardianship proceedings no longer needed: Discussed STR needs and options with pt and Ibis: Ibis accepting of broad search - CM to follow.
[2021-10-10 11:16] LABS: Glucose, Whole Blood 161 mg/dL (60-115)
--- NOTE | 2021-10-10 11:22 | MHC.SL.SWA ---
Speech Pathologist Impression: Oropharyngeal dysphagia Risk of Aspiration Due to: History of Pneumonia Hx of Recent Extubation Dysphasia Diet Status: UPGRADE Liquid Consistency and Strategies for Safe Swallow: Liquid Intake Recommendation: Thin Liquid Intake Strategies: Small Sips No Straws Solid Food Consistency: Dietary Recommendations: Chopped/Advanced (NDD3) Additional Modifications to Solid Foods: No clinical signs of aspiration with PO trials. Oral phase was mildly slow, delayed d/t generalized weakness. Recommend upgrade from NPO to CHOPPED/ADVANCED (NDD3) solids with sauces/gravies and THIN liquids (NO STRAWS), pills WHOLE in LIQUID or PUREE. Patient requires 1:1 assistance feeding. Aspiration precautions apply. TERRITORY SALES PROFESSIONAL notified MD, RN, RD of recommendations. TERRITORY SALES PROFESSIONAL will continue to follow to assess tolerance and potential for upgrade. Oral Medication Intake: Whole with Puree Please contact the pharmacy regarding appropriate crushable or liquid drug formulations that are available whenever modified delivery is recommended. Compensatory Strategies and Precautions to be Taken for Safe Swallow: Sitting Upright (90 deg) No Straw Small Bites and Sips Alternate Liquids/Solids Rate of Ingestion Change Oral Check Avoid Specific Foods Supervision While Eating and Drinking for Safe Swallow: Total Assistance (1:1) Foods to Avoid: Tough, difficult to chew solids Swallowing Recommended Treatments: Compens. Strategy Educat. Recommendation for Speech: Inpatient Speech Therapy Frequency/Duration: M-F while inpatient Side Laster Staple Clinican/Clinical Fellow: No Supervisory Statement: I have reviewed and agree with the student/clinical fellow's documentation: N/A Speech Language Pathologist: Isabel Garcias M.A., CCC-TERRITORY SALES PROFESSIONAL
[2021-10-10 16:58] LABS: Glucose, Whole Blood 179 mg/dL (60-115)
[2021-10-10 20:58] LABS: Glucose, Whole Blood 205 mg/dL (60-115)
[2021-10-11] VITALS (8 sets, daily range): BP systolic 131–157; BP diastolic 74–87; PULSE 52–75; RESP 20–48; TEMP 35.8–36.6; O2SAT 90–97
[2021-10-11] MEDS: Heparin Sodium,Porcine 5,000 UNIT/ML VIAL 5000 UNIT SUBCUT ×3 (01:07→15:12)
[2021-10-11] MEDS: Piperacillin Sodium/Tazobactam 3.375 GM in 0.9 % Sodium Chloride 50 ML IV ×4 (01:08→20:02)
[2021-10-11] MEDS: 0.9 % Sodium Chloride Flush 3 ML SYRINGE IVFLUSH ×4 (01:08→20:02)
[2021-10-11] MEDS: Benzonatate 100 MG CAPSULE PO (03:35)
[2021-10-11 05:19] LABS: VBG Base Excess 5.5 mmol/L; VBG HCO3 26 mmol/L (22-26); VBG pCO2 28 mmHg; VBG pH 7.58 (7.32-7.43); VBG pO2 106 mmHg
[2021-10-11 05:58] LABS: Venous Blood Gas Refer to POC result
[2021-10-11 05:59] LABS: MANUAL DIFF FLAG NO
[2021-10-11 06:06] LABS: Basophils Absolute Auto 0.1 X10*3/uL (0.0-0.2); Basophils Percent Auto 0.9 % (0-2); Eosinophils Absolute Auto 0.5 X10*3/uL (0.0-0.4); Eosinophils Percent Auto 3.6 % (0-4); Hemoglobin 10.4 g/dl (14.0-18.0); Imm Gran Abs Auto 0.07 X10*3/uL (0.00-0.03); Imm Gran Pct Auto 0.5 % (0.0-0.4); Lymphocytes Absolute Auto 1.9 X10*3/uL (1.2-4.9); Lymphocytes Percent Auto 13.1 % (20-40); Mean Corpuscular HGB Conc 31.5 g/dl (31.0-36.0); Mean Corpuscular Volume 91.9 fL (80.0-98.0); Mean Platelet Volume 10.7 fL (9.4-12.4); Monocytes Absolute Auto 1.2 X10*3/uL (0.1-1.2); Monocytes Percent Auto 8.1 % (2-11); Neutrophils Absolute Auto 10.9 x10*3/uL (2.0-8.3); Neutrophils Percent Auto 73.8 % (45-73); Platelet Count 353 X10*3/uL (160-400); Red Blood Count 3.59 X10*6/uL (4.60-5.80); Red Cell Distribution Width 14.5 % (11.0-16.0); White Blood Count 14.8 X10*3/uL (4.8-10.8)
[2021-10-11 06:17] LABS: Albumin Level 3.5 g/dL (3.5-5.0); Anion Gap 17 (12-20); Blood Urea Nitrogen 37 mg/dL (9-16); Calcium 9.5 mg/dL (8.4-10.2); Carbon Dioxide 22 mmol/L (22-29); Chloride 101 mmol/L (96-108); Creatinine Clr Calc Pharmacy 62.7; Estimated Glomerular Filt Rate 52; Glucose Random 172 mg/dL (60-115); Phosphorus 3.1 mg/dL (2.7-4.5); Potassium 3.8 mmol/L (3.3-5.1); Sodium 136 mmol/L (135-145)
[2021-10-11 07:17] LABS: Glucose, Whole Blood 183 mg/dL (60-115)
[2021-10-11] MEDS: Insulin Lispro 100 UNIT/ML 3 ML VIAL SUBCUT ×4 (07:51→22:28)
[2021-10-11] MEDS: Nystatin Powder 15 GM BOTTLE 1 APPL TOPICAL ×3 (07:52→22:27)
[2021-10-11 11:24] LABS: Glucose, Whole Blood 206 mg/dL (60-115)
--- NOTE | 2021-10-11 13:08 | MHC.SL.SWA ---
Speech Pathologist Impression: Risk of Aspiration Due to: History of Pneumonia Hx of Recent Extubation Dysphasia Diet Status: Continue Chopped/Advanced (NDD3) w/THIN liquids, Pills WHOLE in PUREE. Pt will continue to need full assist/supervision during all meals, aspiration precautions apply. Liquid Consistency and Strategies for Safe Swallow: Liquid Intake Recommendation: Thin Liquid Intake Strategies: Small Sips No Straws Solid Food Consistency: Dietary Recommendations: Chopped/Advanced (NDD3) Additional Modifications to Solid Foods: No clinical signs of aspiration with PO trials. Oral phase was mildly slow, delayed d/t generalized weakness. Recommend upgrade from NPO to CHOPPED/ADVANCED (NDD3) solids with sauces/gravies and THIN liquids (NO STRAWS), pills WHOLE in LIQUID or PUREE. Patient requires 1:1 assistance feeding. Aspiration precautions apply. PIANO MACHINE OPERATOR notified , RN, RD of recommendations. PIANO MACHINE OPERATOR will continue to follow to assess tolerance and potential for upgrade. Oral Medication Intake: Whole with Puree Please contact the pharmacy regarding appropriate crushable or liquid drug formulations that are available whenever modified delivery is recommended. Compensatory Strategies and Precautions to be Taken for Safe Swallow: Sitting Upright (90 deg) No Straw Small Bites and Sips Alternate Liquids/Solids Rate of Ingestion Change Oral Check Avoid Specific Foods Supervision While Eating and Drinking for Safe Swallow: Total Assistance (1:1) Foods to Avoid: Tough, difficult to chew solids Swallowing Recommended Treatments: Compens. Strategy Educat. Recommendation for Speech: Inpatient Speech Therapy Comment: Pt observed during lunch for toleration of current recommended diet: Chopped/Advanced (NDD3) w/THIN liquids. Pt in a.m. had reported that he had a good breakfast, w/ no difficulties. At lunch he was being fed by , with full assist. Pt was observed taking tsps of mixed liquid consistency (soup w/ small soft vegetable pieces). Pt was managing soup orally well, both w/ swallowing liquid and masticating small pieces of food. Pt had taken a meal of rice, vegetables and beans w/ no difficulty, no clinical signs of aspiration. Pt is tolerating current recommended consistencies of Chopped/Advanced (NDD3) w/THIN liquids, recommend continuation of these diet consistencies, w/ pills Whole in Puree. Frequency/Duration: M-F while inpatient Date Range for Service Req: Timeline to reassess: Welding Machine Operator Submerged Arc Clinican/Clinical Fellow: No Supervisory Statement: I have reviewed and agree with the student/clinical fellow's documentation: N/A Speech Language Pathologist: Nevaeh Seymour M.A., CCC-PIANO MACHINE OPERATOR
--- NOTE | 2021-10-11 15:57 | HO.PM.IMPN ---
Subjective Subjective Date of Service: 10/11/21 Interval History: Downgraded from ICU after extubation Still oxygen supplement Physical deconditioning can be noticed No reported overnight events Review of Systems No fever, chills but reported feeling generalized weakness No chest pain, palpitation No shortness of breath or coughing but having difficulty taking deep breath No abdominal pain, nausea or vomiting No urinary symptoms No any rash or wounds Physical Exam Vital Signs: Vital Signs: Last Vital Signs Temp 96.5 F L 10/11/21 15:48 Pulse 64 10/11/21 15:48 Resp 20 10/11/21 15:48 BP 153/87 H 10/11/21 15:48 Pulse Ox 91 L 10/11/21 15:48 Oxygen Flow Rate 4 09/28/21 11:25 BMI result Body Mass Index 42.9 Const: Other: Constitutional : Alert, oriented, not in distress Neck : Normal inspection, Supple Cardiovascular : RRR, no JVP, no lower extremity edema Respiratory : decreased bilateral air entry mainly in the right-side with associated coarse crackles, no wheezes or rhonchi Gastrointestinal: soft, lax, Normal bowel sounds, Non tender, distended with no clear ascites Skin : Warm, Dry Neurological : Alert & oriented to self and place but looks weak and deconditioned, No focal deficit Objective Data Active Medications Benzonatate (Benzonatate 100 Mg Capsule) 100 mg PO TID PRN PRN Reason: Cough Last Admin: 10/11/21 03:35 Dose: 100 mg Documented by: DALLIN Heparin Sodium (Porcine) (Heparin Sodium,Porcine 5,000 Unit/Ml Vial) 5,000 unit SUBCUT Q8H [facility] Last Admin: 10/11/21 15:12 Dose: 5,000 unit Documented by: BRETT Piperacillin Sod/Tazobactam (Sod 3.375 gm/ Sodium Chloride) 50 mls @ 100 mls/hr IV Q6H [facility] Last Infusion: 10/11/21 12:49 Dose: 0 mls/hr Documented by: BRETT Insulin Human Lispro (Insulin Lispro 100 Unit/Ml 3 Ml Vial) 0 unit SUBCUT QIDACHS [facility]; Protocol Last Admin: 10/11/21 11:40 Dose: 4 unit Documented by: BRETT Nystatin (Nystatin Powder 15 Gm Bottle) 1 appl TOPICAL TID [facility]; Protocol Last Admin: 10/11/21 14:41 Dose: 1 appl Documented by: BRETT Omeprazole (Omeprazole 20 Mg/10 Ml Susp.Recon) 40 mg PO DAILY@0630 [facility] Last Admin: 10/11/21 06:33 Dose: Not Given Documented by: BING Non-Admin Reason: Med Not Available Pharmacy Consult (Consult Rx Perform Med Rec) 1 each MISCELLANE ONCE PRN PRN Reason: Consult order Pharmacy Consult (Consult Rx Etoh Phenob Po Dose) 1 each MISCELLANE ONCE PRN; Protocol PRN Reason: Consult order Sodium Chloride (0.9 % Sodium Chloride Flush 3 Ml Syringe) 3 ml IVFLUSH QSHIFT [facility] Last Admin: 10/11/21 14:41 Dose: 3 ml Documented by: BRETT Labs CBC & Chem 7: 10/11/21 05:18 10/11/21 05:18 Labs: Laboratory Results - last 24 hr 10/10/21 10/10/21 10/11/21 16:53 20:55 05:11 MCV MCH MCHC RDW Plt Count MPV Immature Gran % (Auto) Neut % (Auto) Lymph % (Auto) [place] % (Auto) Eos % (Auto) Baso % (Auto) Lymph # (Auto) [place] # (Auto) Eos # (Auto) Baso # (Auto) Abs Immat Gran (auto) Absolute Neuts (auto) Absolute Nucleated RBC Nucleated RBC % (auto) VBG pH 7.58 H VBG pCO2 28 VBG pO2 106 VBG HCO3 26 VBG O2 Saturation 98.0 VBG Base Excess 5.5 Anion Gap Estim Creat Clear Calc Estimated GFR POC Glucose 179 H 205 H Random Glucose Calcium Phosphorus Magnesium Albumin 10/11/21 10/11/21 10/11/21 05:18 05:18 07:11 MCV 91.9 MCH 29.0 MCHC 31.5 RDW 14.5 Plt Count 353 MPV 10.7 Immature Gran % (Auto) 0.5 H Neut % (Auto) 73.8 H Lymph % (Auto) 13.1 L [place] % (Auto) 8.1 Eos % (Auto) 3.6 Baso % (Auto) 0.9 Lymph # (Auto) 1.9 [place] # (Auto) 1.2 Eos # (Auto) 0.5 H Baso # (Auto) 0.1 Abs Immat Gran (auto) 0.07 H Absolute Neuts (auto) 10.9 H Absolute Nucleated RBC 0.000 Nucleated RBC % (auto) 0.0 VBG pH VBG pCO2 VBG pO2 VBG HCO3 VBG O2 Saturation VBG Base Excess Anion Gap 17 Estim Creat Clear Calc 62.7 Estimated GFR 52 POC Glucose 183 H Random Glucose 172 H Calcium 9.5 Phosphorus 3.1 Magnesium 2.0 Albumin 3.5 10/11/21 11:18 MCV MCH MCHC RDW Plt Count MPV Immature Gran % (Auto) Neut % (Auto) Lymph % (Auto) [place] % (Auto) Eos % (Auto) Baso % (Auto) Lymph # (Auto) [place] # (Auto) Eos # (Auto) Baso # (Auto) Abs Immat Gran (auto) Absolute Neuts (auto) Absolute Nucleated RBC Nucleated RBC % (auto) VBG pH VBG pCO2 VBG pO2 VBG HCO3 VBG O2 Saturation VBG Base Excess Anion Gap Estim Creat Clear Calc Estimated GFR POC Glucose 206 H Random Glucose Calcium Phosphorus Magnesium Albumin Assessment and Plan (1) Acute respiratory failure: Status: Acute (2) Morbid obesity due to excess calories: Status: Acute (3) Aspiration pneumonia: Status: Acute (4) Acute renal failure: Status: Acute Plan Assessment: 61-year-old gentleman admitted with dyspnea and hypoxemia and treated for community-acquired pneumonia with hospital course complicated by asystolic cardiac arrest, initially with prolonged encephalopathy, now significantly improved. Plan: Metabolic encephalopathy post cardiac arrest Improving, answers simple questions in Qatari Recurrent treat erection, avoid medications that might affect his mind Acute hypoxic respiratory failure 2/2 aspiration pneumonia Wean oxygen down as tolerated Negative cultures continue IV Zosyn Cardiac arrest Post second-degree heart block requiring ventilatory support post CPR. Extubated 10/09/2021. [place] CKD stage 3 Creatinine improved Likely secondary to diabetes, cirrhosis, arrest Hold nephrotoxic medications Monitor BMP Liver cirrhosis Patient report being unaware of diagnosis but he is on medications to treat it? to get information from PCP Check hepatitis profile and INR ?continue Aldactone ?alcohol abuse Continue thiamine and folic acid Type 2 diabetes SSI diabetic diet DVT PPX Heparin Patient will need overnight hospital stay to wean him off the oxygen pending safe discharge plan. Quality Stroke Does the patient have a stroke diagnosis?: No VTE Prior VTE?: No VTE Risk Level:: Medical - moderate - high VTE Device Contraindication: N/A - Device Ordered VTE Drug Contraindication: Treatment Not Indicated
[2021-10-11 16:19] LABS: Glucose, Whole Blood 246 mg/dL (60-115)
[2021-10-11] MEDS: Albuterol/Iprat 2.5/0.5MG 3 ML AMPUL.NEB INHALE (18:57)
[2021-10-11] MEDS: Morphine Sulfate 4 MG/ML CARTRIDGE IVPUSH (20:35)
[2021-10-11 21:08] LABS: Glucose, Whole Blood 194 mg/dL (60-115)
[2021-10-12] VITALS (9 sets, daily range): BP systolic 126–155; BP diastolic 76–91; PULSE 63–75; RESP 18–20; TEMP 36.1–36.6; O2SAT 90–95; BMI 39.1
[2021-10-12] MEDS: Heparin Sodium,Porcine 5,000 UNIT/ML VIAL 5000 UNIT SUBCUT ×3 (00:53→17:27)
[2021-10-12] MEDS: Piperacillin Sodium/Tazobactam 3.375 GM in 0.9 % Sodium Chloride 50 ML IV ×2 (00:54→06:16)
[2021-10-12 07:29] LABS: Anion Gap 14 (12-20); Blood Urea Nitrogen 25 mg/dL (9-16); Calcium 9.8 mg/dL (8.4-10.2); Carbon Dioxide 25 mmol/L (22-29); Chloride 103 mmol/L (96-108); Creatinine Clr Calc Pharmacy 75.9; Estimated Glomerular Filt Rate > 60; Glucose Random 147 mg/dL (60-115); Potassium 3.8 mmol/L (3.3-5.1); Sodium 138 mmol/L (135-145)
[2021-10-12] MEDS: Albuterol/Iprat 2.5/0.5MG 3 ML AMPUL.NEB INHALE ×2 (07:41→22:24)
[2021-10-12 07:54] LABS: Glucose, Whole Blood 158 mg/dL (60-115)
[2021-10-12] MEDS: Insulin Lispro 100 UNIT/ML 3 ML VIAL SUBCUT ×4 (08:35→22:02)
[2021-10-12] MEDS: 0.9 % Sodium Chloride Flush 3 ML SYRINGE IVFLUSH ×2 (08:38→17:28)
[2021-10-12] MEDS: Nystatin Powder 15 GM BOTTLE 1 APPL TOPICAL ×3 (08:38→22:03)
--- NOTE | 2021-10-12 09:55 | MHC.CLN ---
F/U PO INTAKE 25-50% DIET RX: 2200DM 2GM NA CHOPPED-APPROPRIATE POLE PEELING MACHINE OPERATOR HELPER FOLLOWING FOR APPROPRIATE DIET CONSISTENCY RECOMMEND ADDING GLUCERNA BID TO INCREASE KCALS R/T POOR PO SUPP TO PROVIDE 474KCALS, 20G PROTEIN MONITOR PO INTAKE CLOSELY
--- NOTE | 2021-10-12 10:52 | MHC.SLORD ---
Speech Language Pathology Order Status: Shortness of breath at bedside. Shallow rapid breathing and wet cough displayed. Tolerating current diet. Asked if he might be DC'd to home today.
[2021-10-12 11:54] LABS: Glucose, Whole Blood 252 mg/dL (60-115)
--- NOTE | 2021-10-12 12:23 | MHC.CM.PN ---
per rounds pt ready for dc bed search in place
--- NOTE | 2021-10-12 13:08 | HO.PM.IMPN ---
Subjective Subjective Date of Service: 10/12/21 Interval History: Seen and evaluated Looks better overall, more interactive Still on oxygen supplement Physical deconditioning can be noticed No reported overnight events Review of Systems No fever, chills but reported feeling generalized weakness No chest pain, palpitation No shortness of breath or coughing but having difficulty taking deep breath No abdominal pain, nausea or vomiting No urinary symptoms No any rash or wounds Physical Exam Vital Signs: Vital Signs: Last Vital Signs Temp 97.7 F 10/12/21 11:34 Pulse 75 10/12/21 11:34 Resp 19 10/12/21 11:34 BP 126/78 10/12/21 11:34 Pulse Ox 93 10/12/21 11:34 Oxygen Flow Rate 4 09/28/21 11:25 BMI result Body Mass Index 39.1 Const: Other: Constitutional : Alert, oriented, not in distress Neck : Normal inspection, Supple Cardiovascular : RRR, no JVP, no lower extremity edema Respiratory : decreased bilateral air entry mainly in the right-side with fine crackles, no wheezes or rhonchi Gastrointestinal: soft, lax, Normal bowel sounds, Non tender, distended with no clear ascites Skin : Warm, Dry Neurological : Alert & oriented to self and place but looks weak and deconditioned, No focal deficit Objective Data Active Medications Albuterol/Ipratropium (Albuterol/Iprat 2.5/0.5mg 3 Ml Ampul.Neb) 3 ml INHALE RQ6H WHILE AWAKE [facility] Last Admin: 10/12/21 07:41 Dose: 3 ml Documented by: SHALINI Benzonatate (Benzonatate 100 Mg Capsule) 100 mg PO TID PRN PRN Reason: Cough Last Admin: 10/11/21 03:35 Dose: 100 mg Documented by: DALLIN Heparin Sodium (Porcine) (Heparin Sodium,Porcine 5,000 Unit/Ml Vial) 5,000 unit SUBCUT Q8H [facility] Last Admin: 10/12/21 08:37 Dose: 5,000 unit Documented by: GRACE Piperacillin Sod/Tazobactam (Sod 3.375 gm/ Sodium Chloride) 50 mls @ 100 mls/hr IV Q6H [facility] Last Infusion: 10/12/21 07:43 Dose: 0 mls/hr Documented by: KELIN Insulin Human Lispro (Insulin Lispro 100 Unit/Ml 3 Ml Vial) 0 unit SUBCUT QIDACHS [facility]; Protocol Last Admin: 10/12/21 12:24 Dose: 6 unit Documented by: GRACE Nystatin (Nystatin Powder 15 Gm Bottle) 1 appl TOPICAL TID [facility]; Protocol Last Admin: 10/12/21 08:38 Dose: 1 appl Documented by: GRACE Omeprazole (Omeprazole 20 Mg/10 Ml Susp.Recon) 40 mg PO DAILY@0630 [facility] Last Admin: 10/12/21 06:19 Dose: 40 mg Documented by: KELIN Pharmacy Consult (Consult Rx Perform Med Rec) 1 each MISCELLANE ONCE PRN PRN Reason: Consult order Pharmacy Consult (Consult Rx Etoh Phenob Po Dose) 1 each MISCELLANE ONCE PRN; Protocol PRN Reason: Consult order Sodium Chloride (0.9 % Sodium Chloride Flush 3 Ml Syringe) 3 ml IVFLUSH QSHIFT [facility] Last Admin: 10/12/21 08:38 Dose: 3 ml Documented by: GRACE Labs CBC & Chem 7: 10/11/21 05:18 10/12/21 06:32 Labs: Laboratory Results - last 24 hr 10/11/21 10/11/21 10/12/21 16:14 21:03 06:32 Anion Gap 14 Estim Creat Clear Calc 75.9 Estimated GFR > 60 POC Glucose 246 H 194 H Random Glucose 147 H Calcium 9.8 10/12/21 10/12/21 07:33 11:37 Anion Gap Estim Creat Clear Calc Estimated GFR POC Glucose 158 H 252 H Random Glucose Calcium Microbiology Microbiology Results: Microbiology 10/07/21 10:30 Blood Culture - Final Blood - Venous No growth after 5 days. 10/07/21 10:30 Blood Culture - Final Blood - Venous No growth after 5 days. Assessment and Plan (1) Cardiac arrest due to other underlying condition: Status: Acute (2) Aspiration pneumonia: Status: Acute (3) Acute respiratory failure: Status: Acute (4) Acute renal failure: Status: Acute Plan A 61-year-old gentleman admitted with dyspnea and hypoxemia and treated for community-acquired pneumonia with hospital course complicated by asystolic cardiac arrest, initially with prolonged encephalopathy, now significantly improved. Metabolic encephalopathy post cardiac arrest Improved, answers simple questions in [place]er Recurrent redirection, avoid medications that might affect his mind Acute hypoxic respiratory failure 2/2 aspiration pneumonia Wean oxygen down as tolerated Negative cultures DC IV Zosyn Start PO Augmentin Cardiac arrest Post second-degree heart block requiring ventilatory support post CPR. Extubated 10/09/2021. [place] on g CKD stage 3 Creatinine improved Likely secondary to diabetes, cirrhosis, arrest Hold nephrotoxic medications Monitor BMP Liver cirrhosis Patient report being unaware of diagnosis but he is on medications to treat it? to get information from PCP Check hepatitis profile and INR Continue Aldactone Alcohol abuse Continue thiamine and folic acid Type 2 diabetes SSI diabetic diet DVT PPX Heparin Patient will need overnight hospital stay to wean him off the oxygen pending safe discharge plan. Quality Stroke Does the patient have a stroke diagnosis?: No VTE Prior VTE?: No VTE Risk Level:: Medical - moderate - high VTE Device Contraindication: N/A - Device Ordered VTE Drug Contraindication: Treatment Not Indicated
[2021-10-12] MEDS: Amoxicillin/Potassium Clav 875 MG TABLET PO ×2 (14:45→22:02)
[2021-10-12 16:27] LABS: Glucose, Whole Blood 163 mg/dL (60-115)
[2021-10-12 20:19] LABS: Glucose, Whole Blood 162 mg/dL (60-115)
[2021-10-13] VITALS (9 sets, daily range): BP systolic 126–148; BP diastolic 69–83; PULSE 64–89; RESP 18–22; TEMP 36.4–37.1; O2SAT 92–98; BMI 39.0
[2021-10-13] MEDS: Heparin Sodium,Porcine 5,000 UNIT/ML VIAL 5000 UNIT SUBCUT ×4 (00:33→21:46)
[2021-10-13] MEDS: 0.9 % Sodium Chloride Flush 3 ML SYRINGE IVFLUSH ×4 (00:35→21:41)
[2021-10-13 07:11] LABS: Magnesium 1.9 mg/dL (1.6-2.6)
[2021-10-13 07:12] LABS: Anion Gap 13 (12-20); Blood Urea Nitrogen 22 mg/dL (9-16); Calcium 9.8 mg/dL (8.4-10.2); Carbon Dioxide 25 mmol/L (22-29); Chloride 104 mmol/L (96-108); Creatinine Clr Calc Pharmacy 88.7; Estimated Glomerular Filt Rate > 60; Glucose Random 157 mg/dL (60-115); Potassium 3.6 mmol/L (3.3-5.1); Sodium 138 mmol/L (135-145)
[2021-10-13 07:42] LABS: Glucose, Whole Blood 141 mg/dL (60-115)
[2021-10-13] MEDS: Albuterol/Iprat 2.5/0.5MG 3 ML AMPUL.NEB INHALE ×3 (07:53→19:24)
[2021-10-13] MEDS: Amoxicillin/Potassium Clav 875 MG TABLET PO ×2 (10:11→21:40)
[2021-10-13] MEDS: Nystatin Powder 15 GM BOTTLE 1 APPL TOPICAL ×3 (10:12→21:41)
[2021-10-13 11:21] LABS: Glucose, Whole Blood 181 mg/dL (60-115)
[2021-10-13] MEDS: Insulin Lispro 100 UNIT/ML 3 ML VIAL SUBCUT ×3 (12:03→21:41)
--- NOTE | 2021-10-13 15:11 | P.PNIM_ITS ---
Subjective Subjective Date of Service: 10/13/21 Interval History: Seen and evaluated Looks better, more interactive, reported he wanted to go back home Still on oxygen supplement Physical deconditioning can be noticed No reported overnight events Review of Systems No fever, chills but reported feeling generalized weakness No chest pain, palpitation No shortness of breath or coughing but having difficulty taking deep breath No abdominal pain, nausea or vomiting No urinary symptoms No any rash or wounds Physical Exam Vital Signs: Vital Signs: Last Vital Signs Temp 97.6 F 10/13/21 11:10 Pulse 82 10/13/21 14:47 Resp 22 H 10/13/21 14:47 BP 135/82 10/13/21 11:10 Pulse Ox 94 10/13/21 11:10 Oxygen Flow Rate 4 09/28/21 11:25 BMI result Body Mass Index 39.0 Const: Other: Constitutional : Alert, oriented, not in distress Neck : Normal inspection, Supple Cardiovascular : RRR, no JVP, no lower extremity edema Respiratory : decreased bilateral air entry mainly in the right-side with fine crackles, no wheezes or rhonchi Gastrointestinal: soft, lax, Normal bowel sounds, Non tender, distended with no clear ascites Skin : Warm, Dry Neurological : Alert & oriented to self and place but looks weak and deconditioned, No focal deficit Objective Data Active Medications Albuterol/Ipratropium (Albuterol/Iprat 2.5/0.5mg 3 Ml Ampul.Neb) 3 ml INHALE RQ6H WHILE AWAKE [facility] Last Admin: 10/13/21 14:47 Dose: 3 ml Documented by: RG Amoxicillin/Clavulanate Potassium (Amoxicillin/Potassium Clav 875 Mg Tablet) 875 mg PO BID [facility] Last Admin: 10/13/21 10:11 Dose: 875 mg Documented by: CAMERON Benzonatate (Benzonatate 100 Mg Capsule) 100 mg PO TID PRN PRN Reason: Cough Last Admin: 10/11/21 03:35 Dose: 100 mg Documented by: DALLIN Heparin Sodium (Porcine) (Heparin Sodium,Porcine 5,000 Unit/Ml Vial) 5,000 unit SUBCUT Q8H [facility] Last Admin: 10/13/21 10:11 Dose: 5,000 unit Documented by: CAMERON Insulin Human Lispro (Insulin Lispro 100 Unit/Ml 3 Ml Vial) 0 unit SUBCUT QIDACHS [facility]; Protocol Last Admin: 10/13/21 12:03 Dose: 2 unit Documented by: CAMERON Nystatin (Nystatin Powder 15 Gm Bottle) 1 appl TOPICAL TID [facility]; Protocol Last Admin: 10/13/21 10:12 Dose: 1 appl Documented by: CAMERON Omeprazole (Omeprazole 20 Mg/10 Ml Susp.Recon) 40 mg PO DAILY@0630 [facility] Last Admin: 10/13/21 06:03 Dose: 40 mg Documented by: SEBASTIÁN Pharmacy Consult (Consult Rx Perform Med Rec) 1 each MISCELLANE ONCE PRN PRN Reason: Consult order Pharmacy Consult (Consult Rx Etoh Phenob Po Dose) 1 each MISCELLANE ONCE PRN; Protocol PRN Reason: Consult order Sodium Chloride (0.9 % Sodium Chloride Flush 3 Ml Syringe) 3 ml IVFLUSH QSHIFT [facility] Last Admin: 10/13/21 10:11 Dose: 3 ml Documented by: CAMERON Labs CBC & Chem 7: 10/11/21 05:18 10/13/21 06:26 Labs: Laboratory Results - last 24 hr 10/12/21 10/12/21 10/13/21 16:02 20:11 06:26 Anion Gap 13 Estim Creat Clear Calc 88.7 Estimated GFR > 60 POC Glucose 163 H 162 H Random Glucose 157 H Calcium 9.8 Magnesium 10/13/21 10/13/21 10/13/21 06:26 07:34 11:12 Anion Gap Estim Creat Clear Calc Estimated GFR POC Glucose 141 H 181 H Random Glucose Calcium Magnesium 1.9 Microbiology Microbiology Results: Microbiology 10/07/21 10:30 Blood Culture - Final Blood - Venous No growth after 5 days. 10/07/21 10:30 Blood Culture - Final Blood - Venous No growth after 5 days. Assessment and Plan (1) Acute respiratory failure: Status: Acute (2) Cardiac arrest due to other underlying condition: Status: Acute (3) Aspiration pneumonia: Status: Acute Plan A 61-year-old gentleman admitted with dyspnea and hypoxemia and treated for community-acquired pneumonia with hospital course complicated by asystolic cardiac arrest, initially with prolonged encephalopathy, now significantly impro rosaura. Metabolic encephalopathy post cardiac arrest Improved, answers simple questions in [place] Recurrent redirection, avoid medications that might affect his mind Acute hypoxic respiratory failure 2/2 aspiration pneumonia Wean oxygen down as tolerated Negative cultures DC IV Zosyn Continue PO Augmentin Cardiac arrest Post second-degree heart block requiring ventilatory support post CPR. Extubated 10/09/2021. Curtis on g CKD stage 3 Creatinine improved Likely secondary to diabetes, cirrhosis, arrest Hold nephrotoxic medications Monitor BMP Liver cirrhosis Patient report being unaware of diagnosis but he is on medications to treat it? Negative hepatitis profile Continue Aldactone Alcohol abuse Continue thiamine and folic acid Type 2 diabetes SSI diabetic diet DVT PPX Heparin Patient will need overnight hospital stay to wean him off the oxygen pending safe discharge plan. Quality Stroke Does the patient have a stroke diagnosis?: No VTE Prior VTE?: No VTE Risk Level:: Medical - moderate - high VTE Device Contraindication: N/A - Device Ordered VTE Drug Contraindication: Treatment Not Indicated
[2021-10-13 15:58] LABS: Glucose, Whole Blood 190 mg/dL (60-115)
[2021-10-13 19:53] LABS: Glucose, Whole Blood 250 mg/dL (60-115)
[2021-10-14] VITALS (9 sets, daily range): BP systolic 130–141; BP diastolic 76–80; PULSE 65–89; RESP 18–24; TEMP 36.3–37.1; O2SAT 91–98; BMI 38.6
[2021-10-14 06:50] LABS: INTERNATIONAL NORM RATIO 1.2 (0.9-1.1); Prothrombin Time 14.1 SEC (9.9-13.0)
[2021-10-14 07:15] LABS: Anion Gap 18 (12-20); Blood Urea Nitrogen 20 mg/dL (9-16); Calcium 9.8 mg/dL (8.4-10.2); Carbon Dioxide 23 mmol/L (22-29); Chloride 102 mmol/L (96-108); Creatinine Clr Calc Pharmacy 79.7; Estimated Glomerular Filt Rate > 60; Glucose Random 162 mg/dL (60-115); Potassium 3.6 mmol/L (3.3-5.1); Sodium 139 mmol/L (135-145)
[2021-10-14] MEDS: Albuterol/Iprat 2.5/0.5MG 3 ML AMPUL.NEB INHALE ×3 (07:30→19:10)
[2021-10-14 07:43] LABS: Glucose, Whole Blood 158 mg/dL (60-115)
[2021-10-14] MEDS: Amoxicillin/Potassium Clav 875 MG TABLET PO ×2 (07:56→21:51)
[2021-10-14] MEDS: Insulin Lispro 100 UNIT/ML 3 ML VIAL SUBCUT ×4 (07:56→21:52)
[2021-10-14] MEDS: Heparin Sodium,Porcine 5,000 UNIT/ML VIAL 5000 UNIT SUBCUT ×3 (07:56→23:17)
[2021-10-14] MEDS: Nystatin Powder 15 GM BOTTLE 1 APPL TOPICAL ×3 (10:23→21:56)
[2021-10-14] MEDS: 0.9 % Sodium Chloride Flush 3 ML SYRINGE IVFLUSH ×4 (10:24→23:21)
[2021-10-14 12:00] LABS: Glucose, Whole Blood 212 mg/dL (60-115)
--- NOTE | 2021-10-14 13:07 | MHC.CM.PN ---
CM MET WITH PT AND FAMILY TO DISCUSS DC PLANNING PT IS AGREEABLE TO STR AND WILL NOT BE RETURNING TO [facility] PT IS HOPING HE CAN GO TO A SNF CLOSE TO HOME AND SOMEWHERE THAT WILL ALLOW HIM TO GO OUTSIDE TO ENJOY THE WEATHER. THEY ARE AWARE MULTIPLE REFERRALS WERE MADE AND PT WILL DC SOON A BED OFFER IS RECEIVED
--- NOTE | 2021-10-14 13:36 | HO.PM.IMPN ---
Subjective Subjective Date of Service: 10/14/21 Interval History: Seen and evaluated Looks better, more interactive, reported he wanted to go back home but spoke with his family about the need of going to rehab facility Still on oxygen supplement Physical deconditioning can be noticed No reported overnight events Review of Systems No fever, chills but reported feeling generalized weakness No chest pain, palpitation No shortness of breath or coughing but having difficulty taking deep breath No abdominal pain, nausea or vomiting No urinary symptoms No any rash or wounds Physical Exam Vital Signs: Vital Signs: Last Vital Signs Temp 98.6 F 10/14/21 12:00 Pulse 78 10/14/21 12:00 Resp 22 H 10/14/21 12:00 BP 141/80 H 10/14/21 12:00 Pulse Ox 94 10/14/21 12:00 Oxygen Flow Rate 4 09/28/21 11:25 BMI result Body Mass Index 38.6 Const: Other: Constitutional : Alert, oriented, not in distress Neck : Normal inspection, Supple Cardiovascular : RRR, no JVP, no lower extremity edema Respiratory : decreased bilateral air entry mainly in the right-side with fine crackles, no wheezes or rhonchi, on oxygen supplement Gastrointestinal: soft, lax, Normal bowel sounds, Non tender, distended with no clear ascites Skin : Warm, Dry Neurological : Alert & oriented to self and place but looks weak and deconditioned, No focal deficit Objective Data Active Medications Albuterol/Ipratropium (Albuterol/Iprat 2.5/0.5mg 3 Ml Ampul.Neb) 3 ml INHALE RQ6H WHILE AWAKE [facility] Last Admin: 10/14/21 07:30 Dose: 3 ml Documented by: RG Amoxicillin/Clavulanate Potassium (Amoxicillin/Potassium Clav 875 Mg Tablet) 875 mg PO BID [facility] Last Admin: 10/14/21 07:56 Dose: 875 mg Documented by: SHAYE Benzonatate (Benzonatate 100 Mg Capsule) 100 mg PO TID PRN PRN Reason: Cough Last Admin: 10/11/21 03:35 Dose: 100 mg Documented by: DALLIN Heparin Sodium (Porcine) (Heparin Sodium,Porcine 5,000 Unit/Ml Vial) 5,000 unit SUBCUT Q8H [facility] Last Admin: 10/14/21 07:56 Dose: 5,000 unit Documented by: SHAYE Insulin Human Lispro (Insulin Lispro 100 Unit/Ml 3 Ml Vial) 0 unit SUBCUT QIDACHS [facility]; Protocol Last Admin: 10/14/21 12:09 Dose: 4 unit Documented by: SHAYE Nystatin (Nystatin Powder 15 Gm Bottle) 1 appl TOPICAL TID [facility]; Protocol Last Admin: 10/14/21 10:23 Dose: 1 appl Documented by: SHAYE Omeprazole (Omeprazole 20 Mg/10 Ml Susp.Recon) 40 mg PO DAILY@0630 [facility] Last Admin: 10/14/21 05:41 Dose: 40 mg Documented by: ANTOIC Pharmacy Consult (Consult Rx Perform Med Rec) 1 each MISCELLANE ONCE PRN PRN Reason: Consult order Pharmacy Consult (Consult Rx Etoh Phenob Po Dose) 1 each MISCELLANE ONCE PRN; Protocol PRN Reason: Consult order Sodium Chloride (0.9 % Sodium Chloride Flush 3 Ml Syringe) 3 ml IVFLUSH QSHIFT [facility] Last Admin: 10/14/21 10:24 Dose: 3 ml Documented by: SHAYE Labs CBC & Chem 7: 10/11/21 05:18 10/14/21 06:13 Labs: Laboratory Results - last 24 hr 10/13/21 10/13/21 10/14/21 15:53 19:22 06:13 PT INR Anion Gap 18 Estim Creat Clear Calc 79.7 Estimated GFR > 60 POC Glucose 190 H 250 H Random Glucose 162 H Calcium 9.8 10/14/21 10/14/21 10/14/21 06:13 07:15 11:54 PT 14.1 H INR 1.2 H Anion Gap Estim Creat Clear Calc Estimated GFR POC Glucose 158 H 212 H Random Glucose Calcium Assessment and Plan (1) Congestive heart failure: Status: Acute (2) Acute respiratory failure: Status: Acute (3) Morbid obesity due to excess calories: Status: Acute (4) Aspiration pneumonia: Status: Acute (5) Liver cirrhosis: Status: Acute Plan A 61-year-old gentleman admitted with dyspnea and hypoxemia and treated for community-acquired pneumonia with hospital course complicated by asystolic cardiac arrest, initially with prolonged encephalopathy, now significantly improved. Metabolic encephalopathy Improved, answers simple questions in French Recurrent redirection, avoid medications that might affect his mind Acute hypoxic respiratory failure 2/2 aspiration pneumonia Wean oxygen down as tolerated Negative cultures DC IV Zosyn Continue PO Augmentin Incentive spirometry Cardiac arrest Post second-degree heart block requiring ventilatory support post CPR. Extubated 10/09/2021. Physical deconditioning PT evaluation recommended extensive the physical therapy at discharge History of DARRIAN To start CPAP at bedtime hoping it will improve his respiratory status Curtis on g CKD stage 3 Creatinine improved Likely secondary to diabetes, cirrhosis, arrest Hold nephrotoxic medications Monitor BMP Liver cirrhosis Patient report being unaware of diagnosis but he is on medications to treat it Negative hepatitis profile Continue Aldactone Alcohol abuse Continue thiamine and folic acid Type 2 diabetes SSI diabetic diet DVT PPX Heparin Patient will need overnight hospital stay the weaning down oxygen and pending safe discharge plan. Quality Stroke Does the patient have a stroke diagnosis?: No VTE Prior VTE?: No VTE Risk Level:: Medical - moderate - high VTE Device Contraindication: N/A - Device Ordered VTE Drug Contraindication: Treatment Not Indicated
[2021-10-14] MEDS: oxyCODONE HCl Immed Release 5 MG TABLET PO ×2 (14:29→23:16)
[2021-10-14 16:07] LABS: Glucose, Whole Blood 236 mg/dL (60-115)
[2021-10-14 19:33] LABS: Glucose, Whole Blood 238 mg/dL (60-115)
[2021-10-15] VITALS (9 sets, daily range): BP systolic 116–182; BP diastolic 74–95; PULSE 54–95; RESP 18–24; TEMP 36.5–36.9; O2SAT 90–94; BMI 38.4
[2021-10-15] MEDS: Albuterol/Iprat 2.5/0.5MG 3 ML AMPUL.NEB INHALE ×3 (07:38→18:50)
[2021-10-15 07:44] LABS: Glucose, Whole Blood 130 mg/dL (60-115)
[2021-10-15] MEDS: Furosemide 40 MG/4 ML VIAL IVPUSH ×2 (09:35→17:49)
[2021-10-15] MEDS: Amoxicillin/Potassium Clav 875 MG TABLET PO ×2 (09:35→22:32)
[2021-10-15] MEDS: Heparin Sodium,Porcine 5,000 UNIT/ML VIAL 5000 UNIT SUBCUT ×3 (09:35→22:42)
[2021-10-15] MEDS: Nystatin Powder 15 GM BOTTLE 1 APPL TOPICAL ×3 (09:48→22:46)
--- NOTE | 2021-10-15 10:13 | MHC.CLN ---
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
--- NOTE | 2021-10-15 11:30 | HO.ADDICT_ITS ---
History of Present Illness Date of Service: 10/15/2021 Chief Complaint: shortness of breath abdominal bloating Reason for Consult: Medically admitted since 09/28--previously on methadone ? restart Requesting physician: Shania Navarro Discussed with referring provider: Yes Sources of Information: patient interviewed and chart reviewed HPI Narrative: Per hospitalist note, patient is A 61-year-old gentleman admitted with dyspnea and hypoxemia and treated for community-acquired pneumonia with hospital course complicated by asystolic cardiac arrest, initially with prolonged encephalopathy, now significantly improved . Consult requested as patient's daughter reported that patient had been on methadone at time of admission. Chart review shows that patient was receiving fentanyl during ICU stay, then received 1-2 doses of morphine whille on medical floor, and most recently PO oxycodone 5mg. Patient seen by this newspaper writer in room 458. present during interview. Patient reports he was on methadone 70mg daily via [facility]. He becomes a bit emotional when stating that he does not wish to restart methadone. He denies any withdrawal sx and does not appear to be experiencing any over sx. Denies loose stools, nausea, chills, irritability, etc. Diagnostics Vital Signs (24Hr): Vital Signs - 24 hr 10/14/21 12:00 10/14/21 14:57 10/14/21 15:47 Temperature 98.6 F 98.7 F Pulse Rate 78 78 89 Respiratory Rate 22 H 20 19 Blood Pressure 141/80 H 139/77 Pulse Oximetry 94 97 10/14/21 19:10 10/14/21 19:22 10/14/21 23:58 Temperature 98.7 F 98 F Pulse Rate 68 65 69 Respiratory Rate 19 20 20 Blood Pressure 132/76 138/78 Pulse Oximetry 97 94 10/15/21 00:07 10/15/21 04:00 10/15/21 07:12 Temperature 98.5 F 98.0 F Pulse Rate 78 68 Respiratory Rate 18 20 20 Blood Pressure 132/80 153/84 H Pulse Oximetry 94 92 10/15/21 07:40 10/15/21 11:04 Temperature 98.0 F Pulse Rate 72 95 Respiratory Rate 24 H 18 Blood Pressure 154/95 H Pulse Oximetry 94 BMI result Body Mass Index 38.4 Labs Results: 10/11/21 05:18 10/14/21 06:13 Labs: Laboratory Results - last 48 hr 10/13/21 10/13/21 10/14/21 15:53 19:22 06:13 PT INR Sodium 139 Potassium 3.6 Chloride 102 Carbon Dioxide 23 Anion Gap 18 BUN 20 H Creatinine 1.04 Estim Creat Clear Calc 79.7 Estimated GFR > 60 POC Glucose 190 H 250 H Random Glucose 162 H Calcium 9.8 10/14/21 10/14/21 10/14/21 06:13 07:15 11:54 PT 14.1 H INR 1.2 H Sodium Potassium Chloride Carbon Dioxide Anion Gap BUN Creatinine Estim Creat Clear Calc Estimated GFR POC Glucose 158 H 212 H Random Glucose Calcium 10/14/21 10/14/21 10/15/21 15:49 19:21 07:11 PT INR Sodium Potassium Chloride Carbon Dioxide Anion Gap BUN Creatinine Estim Creat Clear Calc Estimated GFR POC Glucose 236 H 238 H 130 H Random Glucose Calcium Imaging Radiology Impressions: ITS Impressions Chest X-Ray 09/28/21 12:00 IMPRESSION: Pleural thickening versus small bilateral pleural effusions are similar to the 2019 study likely representing chronic changes. Mild congestion cannot be excluded. Chest CT 09/28/21 13:42 IMPRESSION: 1. Bilateral consolidation, significantly most pronounced in the right lower lobe suggesting atelectasis and/or infiltrates. This is much more pronounced compared to radiographs from today. Short-term follow-up with PA and lateral views of the chest are recommended as clinically indicated to assess for change. 2. Mild interval enlargement of previously seen enlarged right paratracheal lymph nodes are nonspecific, but may be reactive to this process. 3. Hepatomegaly and cirrhosis with increased caudate lobe hypertrophy. Mildly enlarged gastrohepatic lymph nodes have not significant change. 4. Moderate bilateral gynecomastia was not seen previously. Abdomen Ultrasound 09/28/21 15:53 IMPRESSION: Very limited exam. No ascites. Echogenic liver and changes of mild cirrhosis. Chest X-Ray 09/29/21 03:32 IMPRESSION: Endotracheal tube terminates 0.5 cm above the jian. Suggest retraction. Worsening bilateral lung opacities. This critical result was discussed with ADAN Shaw, by telephone at 09/29/2021 3:36 AM and it was ascertained that the content and urgency of the report was understood at the time of direct communication. Venous Duplex 09/29/21 09:04 IMPRESSION: No DVT demonstrated in the right and left lower extremity. Pulmonary Perfusion Imaging 09/29/21 10:15 IMPRESSION: Based on the perfusion only modified PIOPED II criteria, pulmonary thromboembolism is considered absent. Chest X-Ray 09/30/21 09:09 IMPRESSION: Endotracheal tube 0.5 cm above the jian and should be pulled back several centimeters. Nasogastric tube projects over stomach, tip not seen. Low lung volumes. Increasing bilateral airspace disease and bilateral pleural effusions. Findings will be communicated by the [place] work flow scraper meat. Chest CT 10/01/21 08:01 IMPRESSION: Worsening bilateral multilobar pneumonia greatest in the bilateral lower lobes. Small bilateral pleural effusions. Enlarged heart. Stable mediastinal lymphadenopathy. Cirrhotic-appearing liver. Fleischner guidelines were followed. Head CT 10/01/21 08:01 IMPRESSION: Chronic microvascular ischemic changes with no CT evidence of acute intracranial abnormality. Chest X-Ray 10/04/21 06:36 IMPRESSION: *Endotracheal tube terminating 4 cm superior to the jian. *Enteric tube terminating within the stomach. *Right internal jugular catheter terminating at the cavoatrial junction. *Small bilateral pleural effusions. *Mild bibasilar atelectasis and/or consolidation. Pulmonary aeration is markedly improved compared with 09/30/2021 9:01 AM chest radiograph. Venous Duplex 10/04/21 09:27 IMPRESSION: 1. No DVT demonstrated in the bilateral lower extremity. 2. Left peroneal vein not well visualized, limiting evaluation at this level. 3. Left groin lymph node noted measuring 1.0 x 0.6 x 0.8 cm. Chest X-Ray 10/07/21 07:35 IMPRESSION: Cardiomegaly without congestion. Bilateral pleural effusions with bibasilar atelectasis. Chest X-Ray 10/11/21 03:55 IMPRESSION: Persistent small pleural effusions and retrocardiac opacity, similar to 10/07/2021. Chest X-Ray 10/15/21 09:22 IMPRESSION: Similar to slightly increased bibasilar airspace opacities and bilateral pleural effusions when compared to 10/11/2021. Mental Status Exam Mental Status Exam Patient Appearance: Well Grooomed and Appropriate Patient Orientation: Person, Place and Situation Level of Consciousness: Awake and Appropriate Patient Behavior: Appropriate Mood Description: Calm Speech Pattern: Garbled (but understandable ) Judgement: Fair Medications Medications Current Medications Albuterol/Ipratropium (Albuterol/Iprat 2.5/0.5mg 3 Ml Ampul.Neb) 3 ml INHALE RQ6H WHILE AWAKE [facility] Last Admin: 10/15/21 07:38 Dose: 3 ml Documented by: Amoxicillin/Clavulanate Potassium (Amoxicillin/Potassium Clav 875 Mg Tablet) 875 mg PO BID [facility] Last Admin: 10/15/21 09:35 Dose: 875 mg Documented by: Benzonatate (Benzonatate 100 Mg Capsule) 100 mg PO TID PRN PRN Reason: Cough Last Admin: 10/11/21 03:35 Dose: 100 mg Documented by: Furosemide (Furosemide 40 Mg/4 Ml Vial) 40 mg IVPUSH BID@0900,1800 [facility]; Protocol Heparin Sodium (Porcine) (Heparin Sodium,Porcine 5,000 Unit/Ml Vial) 5,000 unit SUBCUT Q8H [facility] Last Admin: 10/15/21 09:35 Dose: 5,000 unit Documented by: Insulin Human Lispro (Insulin Lispro 100 Unit/Ml 3 Ml Vial) 0 unit SUBCUT QIDACHS [facility]; Protocol Last Admin: 10/15/21 07:51 Dose: Not Given Documented by: Nystatin (Nystatin Powder 15 Gm Bottle) 1 appl TOPICAL TID [facility]; Protocol Last Admin: 10/15/21 09:48 Dose: 1 appl Documented by: Omeprazole (Omeprazole 20 Mg/10 Ml Susp.Recon) 40 mg PO DAILY@0630 [facility] Last Admin: 10/15/21 06:06 Dose: 40 mg Documented by: Oxycodone HCl (Oxycodone Hcl Immed Release 5 Mg Tablet) 5 mg PO Q8H PRN PRN Reason: Pain, Severe (Pain Scale 7-10) Last Admin: 10/14/21 23:16 Dose: 5 mg Documented by: Pharmacy Consult (Consult Rx Perform Med Rec) 1 each MISCELLANE ONCE PRN PRN Reason: Consult order Pharmacy Consult (Consult Rx Etoh Phenob Po Dose) 1 each MISCELLANE ONCE PRN; Protocol PRN Reason: Consult order Sodium Chloride (0.9 % Sodium Chloride Flush 3 Ml Syringe) 3 ml IVFLUSH QSHIFT [facility] Last Admin: 10/14/21 23:21 Dose: 3 ml Documented by: Allergies Allergies Allergy/AdvReac Type Severity Reaction Status Date / Time aspirin [ASPIRIN] Allergy Unknown RASH Unverified 08/17/21 13:44 ibuprofen Allergy Unknown nausea and Verified 08/17/21 13:44 vomiting Assessment & Plan Assessment & Plan (1) History of opiate therapy: Status: Acute Code(s): Z92.29 - Personal history of other drug therapy Assessment and Plan: * Patient does not wish to restart methadone. No withdrawal noted or reported * no follow up required I spent _30 minutes with the patient and/or on the patient floor today, greater than?50% of which was spent counseling/coordinating care. PMFSH Past Medical History Medical History (Updated 10/15/21 @ 13:42 by Shania Martino CNP) Chronic kidney disease Congestive heart failure Diabetes DARRIAN (obstructive sleep apnea) Family History Family History Mother Cancer Diabetes Social History Social History Household Members: None Housing: House Do you presently have visiting nurse or other home services: No Patient Tobacco Use Status: Never used Tobacco e-Cigarette/Vaping Use: Never Used service: No Current occupational status: disabled
[2021-10-15 11:32] LABS: Glucose, Whole Blood 218 mg/dL (60-115)
[2021-10-15] MEDS: Insulin Lispro 100 UNIT/ML 3 ML VIAL SUBCUT ×3 (12:47→22:40)
--- NOTE | 2021-10-15 12:49 | MHC.CM.PN ---
per rounds pt have a supoer pubic tube placed may be dc ready tomorrow
[2021-10-15] MEDS: ondansetron HCL 4 MG/2 ML VIAL IVPUSH (14:35)
--- NOTE | 2021-10-15 14:44 | MHC.CM.PN ---
met with pts antonio garcia who wanted an update on pts nhome bed search status
--- NOTE | 2021-10-15 15:05 | P.PNIM_ITS ---
Subjective Subjective Date of Service: 10/15/21 Interval History: Seen and evaluated Feels comfortable but still short of breath CXR showing bilateral pleural effusions Physical deconditioning can be noticed No reported overnight events Review of Systems No fever, chills but reported feeling generalized weakness No chest pain, palpitation No shortness of breath or coughing but having difficulty taking deep breath No abdominal pain, nausea or vomiting No urinary symptoms No any rash or wounds Physical Exam Vital Signs: Vital Signs: Last Vital Signs Temp 98.0 F 10/15/21 11:04 Pulse 64 10/15/21 14:07 Resp 20 10/15/21 14:07 BP 154/95 H 10/15/21 11:04 Pulse Ox 94 10/15/21 11:04 Oxygen Flow Rate 4 09/28/21 11:25 BMI result Body Mass Index 38.4 Const: Other: Constitutional : Alert, oriented, not in distress Neck : Normal inspection, Supple Cardiovascular : RRR, no JVP, no lower extremity edema Respiratory : decreased bilateral air entry mainly in the right-side with fine crackles, no wheezes or rhonchi, on oxygen supplement Gastrointestinal: soft, lax, Normal bowel sounds, Non tender, distended with no clear ascites Skin : Warm, Dry Neurological : Alert & oriented to self and place but looks weak and deconditioned, No focal deficit Objective Data Active Medications Albuterol/Ipratropium (Albuterol/Iprat 2.5/0.5mg 3 Ml Ampul.Neb) 3 ml INHALE RQ6H WHILE AWAKE [facility] Last Admin: 10/15/21 14:05 Dose: 3 ml Documented by: TRACI Amoxicillin/Clavulanate Potassium (Amoxicillin/Potassium Clav 875 Mg Tablet) 875 mg PO BID [facility] Last Admin: 10/15/21 09:35 Dose: 875 mg Documented by: BHANU Benzonatate (Benzonatate 100 Mg Capsule) 100 mg PO TID PRN PRN Reason: Cough Last Admin: 10/11/21 03:35 Dose: 100 mg Documented by: DALLIN Furosemide (Furosemide 40 Mg/4 Ml Vial) 40 mg IVPUSH BID@0900,1800 [facility]; Protocol Heparin Sodium (Porcine) (Heparin Sodium,Porcine 5,000 Unit/Ml Vial) 5,000 unit SUBCUT Q8H [facility] Last Admin: 10/15/21 09:35 Dose: 5,000 unit Documented by: BHANU Insulin Human Lispro (Insulin Lispro 100 Unit/Ml 3 Ml Vial) 0 unit SUBCUT QIDACHS [facility]; Protocol Last Admin: 10/15/21 12:47 Dose: 4 unit Documented by: BHANU Nystatin (Nystatin Powder 15 Gm Bottle) 1 appl TOPICAL TID [facility]; Protocol Last Admin: 10/15/21 09:48 Dose: 1 appl Documented by: BHANU Omeprazole (Omeprazole 20 Mg/10 Ml Susp.Recon) 40 mg PO DAILY@0630 [facility] Last Admin: 10/15/21 06:06 Dose: 40 mg Documented by: CARISA Ondansetron HCl (Ondansetron Hcl 4 Mg/2 Ml Vial) 4 mg IVPUSH Q8H PRN PRN Reason: Nausea Last Admin: 10/15/21 14:35 Dose: 4 mg Documented by: BHANU Oxycodone HCl (Oxycodone Hcl Immed Release 5 Mg Tablet) 5 mg PO Q8H PRN PRN Reason: Pain, Severe (Pain Scale 7-10) Last Admin: 10/14/21 23:16 Dose: 5 mg Documented by: CARISA Pharmacy Consult (Consult Rx Perform Med Rec) 1 each MISCELLANE ONCE PRN PRN Reason: Consult order Pharmacy Consult (Consult Rx Etoh Phenob Po Dose) 1 each MISCELLANE ONCE PRN; Protocol PRN Reason: Consult order Sodium Chloride (0.9 % Sodium Chloride Flush 3 Ml Syringe) 3 ml IVFLUSH QSHIFT [facility] Last Admin: 10/14/21 23:21 Dose: 3 ml Documented by: CARISA Labs CBC & Chem 7: 10/11/21 05:18 10/14/21 06:13 Labs: Laboratory Results - last 24 hr 10/14/21 10/14/21 10/15/21 15:49 19:21 07:11 POC Glucose 236 H 238 H 130 H 10/15/21 11:03 POC Glucose 218 H Assessment and Plan (1) Congestive heart failure: Status: Acute (2) Aspiration pneumonia: Status: Acute (3) Acute respiratory failure with hypoxia: Status: Acute (4) Morbid obesity due to excess calories: Status: Acute Plan A 61-year-old gentleman admitted with dyspnea and hypoxemia and treated for community-acquired pneumonia with hospital course complicated by asystolic cardiac arrest, initially with prolonged encephalopathy, now significantly improved. Metabolic encephalopathy Improved, answers simple questions in Peruvian Recurrent redirection, avoid medications that might affect his mind Acute hypoxic respiratory failure 2/2 aspiration pneumonia and new diastolic CHF Wean oxygen down as tolerated Check BNP Continue PO Augmentin Incentive spirometry Echo showed EF of 60% Fluid restriction Start IV diuresis To get cardiology evaluation Follow intake and output Cardiac arrest Post second-degree heart block requiring ventilatory support post CPR. Extubated 10/09/2021. Physical deconditioning PT evaluation recommended extensive the physical therapy at discharge History of DARRIAN CPAP at bedtime hoping it will improve his respiratory status Curtis on g CKD stage 3 Creatinine improved Likely secondary to diabetes, cirrhosis, arrest Hold nephrotoxic medications Monitor BMP Liver cirrhosis Patient report being unaware of diagnosis but he is on medications to treat it Negative hepatitis profile Continue Aldactone Alcohol abuse Continue thiamine and folic acid Type 2 diabetes SSI diabetic diet DVT PPX Heparin Patient will need overnight hospital stay the weaning down oxygen not further evaluation for his CHF and pending safe discharge plan Given high chance of decompensation Quality Stroke Does the patient have a stroke diagnosis?: No VTE Prior VTE?: No VTE Risk Level:: Medical - moderate - high VTE Device Contraindication: N/A - Device Ordered VTE Drug Contraindication: Treatment Not Indicated
--- NOTE | 2021-10-15 15:42 | MHC.SLORD ---
Speech Language Pathology Order Status: Patient is on CHOPPED/ADVANCED (NDD3) solids and THIN liquids. 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
[2021-10-15 16:17] LABS: Glucose, Whole Blood 193 mg/dL (60-115)
[2021-10-15] MEDS: Losartan Potassium 25 MG TABLET PO (17:47)
[2021-10-15] MEDS: 0.9 % Sodium Chloride Flush 3 ML SYRINGE IVFLUSH ×2 (17:49→22:41)
[2021-10-15 20:48] LABS: Glucose, Whole Blood 164 mg/dL (60-115)
[2021-10-16] VITALS (13 sets, daily range): BP systolic 133–163; BP diastolic 70–100; PULSE 52–115; RESP 16–20; TEMP 36.2–36.9; O2SAT 92–97; BMI 38.3
[2021-10-16 07:24] LABS: Glucose, Whole Blood 139 mg/dL (60-115)
[2021-10-16] MEDS: Albuterol/Iprat 2.5/0.5MG 3 ML AMPUL.NEB INHALE ×3 (07:45→20:55)
[2021-10-16 07:58] LABS: B Type Natriuretic Peptide 183 pg/mL (<100)
[2021-10-16] MEDS: Losartan Potassium 25 MG TABLET PO (10:17)
[2021-10-16] MEDS: Amoxicillin/Potassium Clav 875 MG TABLET PO ×2 (10:17→21:26)
[2021-10-16] MEDS: Heparin Sodium,Porcine 5,000 UNIT/ML VIAL 5000 UNIT SUBCUT ×2 (10:18→17:34)
[2021-10-16] MEDS: Furosemide 40 MG/4 ML VIAL IVPUSH ×2 (10:18→17:45)
[2021-10-16] MEDS: 0.9 % Sodium Chloride Flush 3 ML SYRINGE IVFLUSH ×2 (10:19→17:43)
[2021-10-16 11:14] LABS: Glucose, Whole Blood 182 mg/dL (60-115)
[2021-10-16] MEDS: Insulin Lispro 100 UNIT/ML 3 ML VIAL SUBCUT ×2 (13:12→17:33)
[2021-10-16] MEDS: ondansetron HCL 4 MG/2 ML VIAL IVPUSH (13:20)
--- NOTE | 2021-10-16 15:50 | P.PNIM_ITS ---
Subjective Subjective Date of Service: 10/16/21 Interval History: Seen and evaluated Feels comfortable but still short of breath Physical strength improving with improvement of incentive spirometry No reported overnight events Review of Systems No fever, chills but reported feeling generalized weakness No chest pain, palpitation No shortness of breath or coughing but better in taking deep breath No abdominal pain, nausea or vomiting No urinary symptoms No any rash or wounds Physical Exam Vital Signs: Vital Signs: Last Vital Signs Temp 97.6 F 10/16/21 11:33 Pulse 56 10/16/21 13:41 Resp 20 10/16/21 13:41 BP 154/100 H 10/16/21 11:33 Pulse Ox 97 10/16/21 11:33 Oxygen Flow Rate 4 09/28/21 11:25 BMI result Body Mass Index 38.3 Const: Other: Constitutional : Alert, oriented, not in distress Neck : Normal inspection, Supple Cardiovascular : RRR, no JVP, no lower extremity edema Respiratory : decreased bilateral air entry mainly in the right-side with fine crackles, no wheezes or rhonchi, on oxygen supplement Gastrointestinal: soft, lax, Normal bowel sounds, Non tender, distended with no clear ascites Skin : Warm, Dry Neurological : Alert & oriented to self and place but looks weak and dec onditioned, No focal deficit Objective Data Active Medications Albuterol/Ipratropium (Albuterol/Iprat 2.5/0.5mg 3 Ml Ampul.Neb) 3 ml INHALE RQ6H WHILE AWAKE [facility] Last Admin: 10/16/21 13:39 Dose: 3 ml Documented by: TRACI Amoxicillin/Clavulanate Potassium (Amoxicillin/Potassium Clav 875 Mg Tablet) 875 mg PO BID [facility] Last Admin: 10/16/21 10:17 Dose: 875 mg Documented by: SHE Benzonatate (Benzonatate 100 Mg Capsule) 100 mg PO TID PRN PRN Reason: Cough Last Admin: 10/11/21 03:35 Dose: 100 mg Documented by: DALLIN Furosemide (Furosemide 40 Mg/4 Ml Vial) 40 mg IVPUSH BID@0900,1800 [facility]; Protocol Last Admin: 10/16/21 10:18 Dose: 40 mg Documented by: SHE Heparin Sodium (Porcine) (Heparin Sodium,Porcine 5,000 Unit/Ml Vial) 5,000 unit SUBCUT Q8H [facility] Last Admin: 10/16/21 10:18 Dose: 5,000 unit Documented by: SHE Insulin Human Lispro (Insulin Lispro 100 Unit/Ml 3 Ml Vial) 0 unit SUBCUT QIDACHS [facility]; Protocol Last Admin: 10/16/21 13:12 Dose: 2 unit Documented by: SHE Losartan Potassium (Losartan Potassium 25 Mg Tablet) 25 mg PO DAILY [facility]; Protocol Last Admin: 10/16/21 10:17 Dose: 25 mg Documented by: SHE Nystatin (Nystatin Powder 15 Gm Bottle) 1 appl TOPICAL TID [facility]; Protocol Last Admin: 10/16/21 14:35 Dose: Not Given Documented by: SHE Non-Admin Reason: Med Not Available Omeprazole (Omeprazole 20 Mg/10 Ml Susp.Recon) 40 mg PO DAILY@0630 [facility] Last Admin: 10/16/21 05:41 Dose: Not Given Documented by: RANJIT Non-Admin Reason: PT TAKING PO, WILL GET ORDER PO CAPSULE Ondansetron HCl (Ondansetron Hcl 4 Mg/2 Ml Vial) 4 mg IVPUSH Q8H PRN PRN Reason: Nausea Last Admin: 10/16/21 13:20 Dose: 4 mg Documented by: SHE Oxycodone HCl (Oxycodone Hcl Immed Release 5 Mg Tablet) 5 mg PO Q8H PRN PRN Reason: Pain, Severe (Pain Scale 7-10) Last Admin: 10/14/21 23:16 Dose: 5 mg Documented by: CARISA Pharmacy Consult (Consult Rx Perform Med Rec) 1 each MISCELLANE ONCE PRN PRN Reason: Consult order Pharmacy Consult (Consult Rx Etoh Phenob Po Dose) 1 each MISCELLANE ONCE PRN; Protocol PRN Reason: Consult order Sodium Chloride (0.9 % Sodium Chloride Flush 3 Ml Syringe) 3 ml IVFLUSH QSHIFT [facility] Last Admin: 10/16/21 10:19 Dose: 3 ml Documented by: SHE Labs CBC & Chem 7: 10/11/21 05:18 10/14/21 06:13 Labs: Laboratory Results - last 24 hr 10/15/21 10/15/21 10/16/21 15:35 20:41 07:18 POC Glucose 193 H 164 H 139 H B-Natriuretic Peptide 10/16/21 10/16/21 07:23 11:07 POC Glucose 182 H B-Natriuretic Peptide 183 H Assessment and Plan (1) Acute respiratory failure with hypoxia: Status: Acute (2) Congestive heart failure: Status: Acute (3) Anoxic encephalopathy: Status: Acute (4) Aspiration pneumonia: Status: Acute Plan A 61-year-old gentleman admitted with dyspnea and hypoxemia and treated for community-acquired pneumonia with hospital course complicated by asystolic cardiac arrest, initially with prolonged encephalopathy, now significantly improved. Metabolic encephalopathy Improved, answers simple questions in Serbian Recurrent redirection, avoid medications that might affect his mind Acute hypoxic respiratory failure 2/2 aspiration pneumonia and new diastolic CHF Wean oxygen down as tolerated Follow BNP Continue PO Augmentin day 9 antibiotics Incentive spirometry Echo showed EF of 60% Fluid restriction Continue IV diuresis Follow intake and output Cardiac arrest Post second-degree heart block requiring ventilatory support post CPR. Extubated 10/09/2021. Physical deconditioning PT evaluation recommended extensive the physical therapy at discharge History of DARRIAN CPAP at bedtime hoping it will improve his respiratory status Curtis on g CKD stage 3 Creatinine improved Likely secondary to diabetes, cirrhosis, arrest Hold nephrotoxic medications Monitor BMP Liver cirrhosis Patient report being unaware of diagnosis but he is on medications to treat it Negative hepatitis profile Continue Aldactone Alcohol abuse Continue thiamine and folic acid Type 2 diabetes SSI diabetic diet DVT PPX Heparin Patient will need overnight hospital stay the weaning down oxygen not further evaluation for his CHF and pending safe discharge plan Given high chance of decompensation Quality Stroke Does the patient have a stroke diagnosis?: No VTE Prior VTE?: No VTE Risk Level:: Medical - moderate - high VTE Device Contraindication: N/A - Device Ordered VTE Drug Contraindication: Treatment Not Indicated
[2021-10-16 16:18] LABS: Glucose, Whole Blood 204 mg/dL (60-115)
[2021-10-16 20:44] LABS: Glucose, Whole Blood 139 mg/dL (60-115)
[2021-10-17] VITALS (8 sets, daily range): BP systolic 124–138; BP diastolic 60–72; PULSE 59–122; RESP 16–22; TEMP 36.4–37.1; O2SAT 87–96; BMI 38.7
[2021-10-17 06:51] LABS: Anion Gap 13 (12-20); Blood Urea Nitrogen 21 mg/dL (9-16); Calcium 10.1 mg/dL (8.4-10.2); Carbon Dioxide 28 mmol/L (22-29); Chloride 99 mmol/L (96-108); Estimated Glomerular Filt Rate > 60; Glucose Random 150 mg/dL (60-115); Potassium 4.1 mmol/L (3.3-5.1); Sodium 136 mmol/L (135-145)
[2021-10-17 07:39] LABS: Glucose, Whole Blood 119 mg/dL (60-115)
[2021-10-17] MEDS: Albuterol/Iprat 2.5/0.5MG 3 ML AMPUL.NEB INHALE ×2 (07:41→13:23)
[2021-10-17] MEDS: Amoxicillin/Potassium Clav 875 MG TABLET PO (10:11)
[2021-10-17] MEDS: Heparin Sodium,Porcine 5,000 UNIT/ML VIAL 5000 UNIT SUBCUT (10:11)
[2021-10-17] MEDS: Losartan Potassium 25 MG TABLET PO (10:11)
[2021-10-17] MEDS: Furosemide 40 MG/4 ML VIAL IVPUSH (10:11)
[2021-10-17] MEDS: 0.9 % Sodium Chloride Flush 3 ML SYRINGE IVFLUSH (10:17)
[2021-10-17 10:42] LABS: Glucose, Whole Blood 223 mg/dL (60-115)
--- NOTE | 2021-10-17 11:16 | MHC.CM.PN ---
per rounds pt does not want to go to rehab wants to go home plan is rick e with home pt and home 02 referrals made
[2021-10-17] MEDS: ondansetron HCL 4 MG/2 ML VIAL IVPUSH (12:37)
[2021-10-17] MEDS: Insulin Lispro 100 UNIT/ML 3 ML VIAL SUBCUT (12:38)
--- NOTE | 2021-10-17 14:20 | P.DS_ITS ---
DS: Providers Provider Date of Service: 10/17/21 Date of admission: 09/28/21 15:33 Primary care physician: Nelly Bach MD Consults: 09/28/21 15:49 Consult to Gastroenterology Routine Consulting Provider: Gaby Sanford Reason for consultation: New cirrhosis, Gynecomastia for your kind eval and rec 10/14/21 11:06 Addiction Medicine Routine Consulting Provider: Shania Martino Reason for consultation: Hx of methadone use, on hold for >2 wks, need to restart or hold ? Has provider been notified: Yes DS: Diagnosis Discharge Diagnosis (1) Acute respiratory failure with hypoxia: Status: Acute (2) Congestive heart failure: Status: Acute (3) Anoxic encephalopathy: Status: Acute (4) Aspiration pneumonia: Status: Acute (5) Acute respiratory failure: Status: Acute (6) Morbid obesity due to excess calories: Status: Acute (7) Cardiac arrest due to other underlying condition: Status: Acute (8) Acute renal failure: Status: Acute (9) Liver cirrhosis: Status: Acute (10) Hyponatremia: Status: Acute (11) Lactic acidosis: Status: Acute (12) Sepsis: Status: Acute DS: Summary Hospital Course Hospital Course: The patient has prolonged hospital stay. For full details please returned to EMR. Admission note HPI ?a 61 years old male with PMH of diabetes, HTN, morbid obesity among others who presents to the hospital with shortness of breath, cough and abdominal bloating for 1 week.His difficulty breathing has been associated with subjective fever, chills, coughing and shortness of breath with exertion.? Reported chest tightness specially after coughing episodes.? Denies any nausea, vomiting, change in bowel habit, urinary symptoms. The patient reported that he has been having? abdominal bloating and discomfort for the last few months that was evaluated by Gastroenterology previously as reported shortness of breath that was also evaluated by pulmonology with a plan to do ? Pulmonary function test next week. ? In the emergency he was found septic with a vitals of pneumonia will chest images.? Noted to have an evidence of cirrhosis that he reports being unaware of but his medication list suggest he is on some medications for cirrhosis. Admitted for further evaluation and treatment. Hospital course The patient was admitted primarily to the hospital for evaluation of difficulty breathing and abdominal bloating. On the night of admission he developed second-degree heart block and cardiac arrest requiring CPR of 20 minutes until resuscitation achieved. He was intubated in the ICU between 09/28 and 10/08. 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 Patient was weaned off the pressors during the hospital stay and was extubated by October 08 as his mentation improved significantly. Noticed to developed aspiration pneumonia during intubation and started on IV antibiotic of Zosyn. Blood cultures remain negative as he finished total of 10 days of antibiotics. Continue to require oxygen supplement after extubation which was weaned down during the hospital stay but evaluated for home oxygen therapy at the day of discharge as he will go home to continue weaning down oxygen. Evaluated by physical therapy team who recommended SNF placement. Patient decided to go back home with VNA and PT at home. He has history of DARRIAN and CPAP was used at bedtime. Advised to use his home machine or to get a new sleep study once he is back home. Developed acute kidney injury on CKD stage 3 which was monitored and treated with holding nephrotoxic medications. Improved back to his baseline. Has Liver cirrhosis at baseline. To continue his current medication at time of discharge. He has a history of alcohol abuse. Advised complete abstinence from alcohol. Continue thiamine and folic acid. Increase Lasix to 40 mg daily continue to use incentive spirometry Wean oxygen down as tolerated To follow up with Cardiology Dr. Cano as scheduled Complete abstinence from alcohol Time Spent with Patient Time attestation: Total time spent providing and/or coordinating discharge services: Discharge coordination time: Greater than 30 minutes Quality: Safe Use of Opioids Does Pt have an Active Cancer Diagnosis on the Problem List?: No Quality: Stroke Does the patient have a stroke diagnosis?: No Physical Exam Vital Signs: Vital Signs: Last Vital Signs Temp 98.7 F 10/17/21 11:29 Pulse 93 10/17/21 13:27 Resp 22 H 10/17/21 13:27 BP 136/60 10/17/21 11:29 Pulse Ox 94 10/17/21 11:29 Oxygen Flow Rate 4 09/28/21 11:25 BMI result Body Mass Index 38.7 Const: Other: Constitutional : Alert, oriented, not in distress Neck : Normal inspection, Supple Cardiovascular : RRR, no JVP, no lower extremity edema Respiratory : Improved bilateral air entry but still decreased mainly right- side, no wheezes or rhonchi, on oxygen supplement Gastrointestinal: soft, lax, Normal bowel sounds, Non tender, distended with no clear ascites Skin : Warm, Dry Neurological : Alert & oriented to self and place , No focal deficit DS: Data Data Completed and Pending Labs on day of discharge: Laboratory Results - last 24 hr 10/16/21 10/16/21 10/17/21 16:10 20:34 06:01 Sodium 136 Potassium 4.1 Chloride 99 Carbon Dioxide 28 Anion Gap 13 BUN 21 H Creatinine 1.05 Estim Creat Clear Calc 79.0 Estimated GFR > 60 POC Glucose 204 H 139 H Random Glucose 150 H Calcium 10.1 10/17/21 10/17/21 07:11 10:33 Sodium Potassium Chloride Carbon Dioxide Anion Gap BUN Creatinine Estim Creat Clear Calc Estimated GFR POC Glucose 119 H 223 H Random Glucose Calcium Imaging CT scan - head: Radiologist's impression: ITS Impressions Chest X-Ray 09/28/21 12:00 IMPRESSION: Pleural thickening versus small bilateral pleural effusions are similar to the 2019 study likely representing chronic changes. Mild congestion cannot be excluded. Chest CT 09/28/21 13:42 IMPRESSION: 1. Bilateral consolidation, significantly most pronounced in the right lower lobe suggesting atelectasis and/or infiltrates. This is much more pronounced compared to radiographs from today. Short-term follow-up with PA and lateral views of the chest are recommended as clinically indicated to assess for change. 2. Mild interval enlargement of previously seen enlarged right paratracheal lymph nodes are nonspecific, but may be reactive to this process. 3. Hepatomegaly and cirrhosis with increased caudate lobe hypertrophy. Mildly enlarged gastrohepatic lymph nodes have not significant change. 4. Moderate bilateral gynecomastia was not seen previously. Abdomen Ultrasound 09/28/21 15:53 IMPRESSION: Very limited exam. No ascites. Echogenic liver and changes of mild cirrhosis. Chest X-Ray 09/29/21 03:32 IMPRESSION: Endotracheal tube terminates 0.5 cm above the jian. Suggest retraction. Worsening bilateral lung opacities. This critical result was discussed with ADAN Shaw, by telephone at 09/29/2021 3:36 AM and it was ascertained that the content and urgency of the report was understood at the time of direct communication. Venous Duplex 09/29/21 09:04 IMPRESSION: No DVT demonstrated in the right and left lower extremity. Pulmonary Perfusion Imaging 09/29/21 10:15 IMPRESSION: Based on the perfusion only modified PIOPED II criteria, pulmonary thromboembolism is considered absent. Chest X-Ray 09/30/21 09:09 IMPRESSION: Endotracheal tube 0.5 cm above the jian and should be pulled back several centimeters. Nasogastric tube projects over stomach, tip not seen. Low lung volumes. Increasing bilateral airspace disease and bilateral pleural effusions. 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 Chest CT 10/01/21 08:01 IMPRESSION: Worsening bilateral multilobar pneumonia greatest in the bilateral lower lobes. Small bilateral pleural effusions. Enlarged heart. Stable mediastinal lymphadenopathy. Cirrhotic-appearing liver. Fleischner guidelines were followed. Head CT 10/01/21 08:01 IMPRESSION: Chronic microvascular ischemic changes with no CT evidence of acute intracranial abnormality. Chest X-Ray 10/04/21 06:36 IMPRESSION: *Endotracheal tube terminating 4 cm superior to the jian. *Enteric tube terminating within the stomach. *Right internal jugular catheter terminating at the cavoatrial junction. *Small bilateral pleural effusions. *Mild bibasilar atelectasis and/or consolidation. Pulmonary aeration is markedly improved compared with 09/30/2021 9:01 AM chest radiograph. Venous Duplex 10/04/21 09:27 IMPRESSION: 1. No DVT demonstrated in the bilateral lower extremity. 2. Left peroneal vein not well visualized, limiting evaluation at this level. 3. Left groin lymph node noted measuring 1.0 x 0.6 x 0.8 cm. Chest X-Ray 10/07/21 07:35 IMPRESSION: Cardiomegaly without congestion. Bilateral pleural effusions with bibasilar atelectasis. Chest X-Ray 10/11/21 03:55 IMPRESSION: Persistent small pleural effusions and retrocardiac opacity, similar to 10/07/2021. Chest X-Ray 10/15/21 09:22 IMPRESSION: Similar to slightly increased bibasilar airspace opacities and bilateral pleural effusions when compared to 10/11/2021. Discharge Plan Discharge Patient Disposition: Home Health Service Discharge Diagnosis: Cardiac arrest, heart failure Hypoxia, aspiration pneumonia Referrals: sheldon hansen [Other] - 1 Week Nelly Bach MD [Primary Care Provider] - 1 Week Discharge Medications: New furosemide 40 mg tablet 40 mg PO QAM Qty: 30 0RF Continued simethicone [Gas Relief (simethicone)] 180 mg capsule 180 mg PO BID PRN (Reason: abdominal distention) Qty: 60 3RF sennosides [Natural Senna Laxative] 8.6 mg tablet 17.2 mg PO BEDTIME Qty: 180 2RF prazosin 1 mg capsule 1 cap PO BEDTIME PRN (Reason: nightmares) 0RF carvedilol 3.125 mg tablet 1 tab PO BID 0RF omeprazole 40 mg capsule,delayed release(DR/EC) 40 mg PO DAILY@0630 0RF spironolactone 50 mg tablet 50 mg PO DAILY 0RF folic acid 1 mg tablet 1 mg PO DAILY 0RF thiamine HCl (vitamin B1) 100 mg tablet 100 mg PO DAILY 0RF metformin 850 mg tablet 850 mg PO BIDWM 0RF lisinopril 20 mg tablet 20 mg PO DAILY 0RF Citrucel 500 mg tablet 500 mg PO DAILY Qty: 30 2RF Rx Instructions: take it with full glass of water Combivent Respimat 20-100 mcg/actuation mist 1 puff inhalation QID 30 Days Qty: 4 11RF Rx Instructions: space evenly during waking hours Discontinued furosemide 20 mg tablet 1 tab PO DAILY 0RF Discharge Orders: Discharge Order (Routine); Ordered 10/17/21 Ordered By: Shania Navarro Diet: low salt diet Activity on Discharge: As tolerated Stand Alone Forms: Patient Portal Discharge page Care Plan Goals: Read below Health Concerns: Read below Plan of Treatment: Read below Assessment: You were treated at the hospital for cardiac arrest, heart failure and aspiration pneumonia. Your symptoms improved significantly with a plan to go back home to continue physical therapy and to wean down oxygen to room air. Increase Lasix to 40 mg daily continue to use incentive spirometry Wean oxygen down as tolerated To follow up with Cardiology Dr. Cano as scheduled Complete abstinence from alcohol Discharge Date/Time: 10/17/21 17:31
--- NOTE | 2021-10-17 14:32 | P.F2F_ITS ---
Service Date Service Date: 10/17/21 Encounter Date of encounter: 10/17/21 Reasons for Services Signs and symptoms assessed: Physical deconditioning New heart failure Reason for shelter: medication treatment and teach disease management Reason for physical therapy: home safety and mobility and therapeutic exercises Homebound: Leaving the home is medically contraindicated at this time without the asist of a device and/or another person due th the listed conditions above and below. Reason homebound: unsteady gait / fall risk Certification: Based on the above findings, I certify that this patient is confined to the home and needs intermittent shelter care, physical therapy and/or speech therapy, or continues to need occupational therapy. The patient is under my care, and I have initiated the establishment of the plan of care. The patient will be followed by a physician who will periodically review the plan of care.
== END 2021-10-17 17:31 | disposition home health service (06) | DRG 720 ==
LOC: HO.ED 15:25 → HO.EDOVER 16:01 → HO.IMC 16:18 → HO.ICU 09-29 02:28 → HO.IMC 10-11 05:33
PROVIDERS: Anesthesiology; Internal Medicine; Internal Medicine Cardiovascular Disease; Internal Medicine Pulmonary Disease; Nurse Practitioner Family; Physician Assistant; Physician Assistant Medical; Admitting Provider Student in an Organized Health Care Education/Training Program; Emergency Provider Emergency Medicine Emergency Medical Services; PCP Internal Medicine; Visit Provider Student in an Organized Health Care Education/Training Program
DX: A41.9 Sepsis, unspecified organism (principal); I46.9 Cardiac arrest, cause unspecified; J69.0 Pneumonitis due to inhalation of food and vomit; J96.01 Acute respiratory failure with hypoxia; J96.02 Acute respiratory failure with hypercapnia; N17.0 Acute kidney failure with tubular necrosis; K72.01 Acute and subacute hepatic failure with coma; G93.41 Metabolic encephalopathy; G93.1 Anoxic brain damage, not elsewhere classified; E87.2 Acidosis; I13.0 Hypertensive heart and chronic kidney disease with heart failure and stage 1 through stage 4 chronic kidney disease, or unspecified chronic kidney disease; E11.22 Type 2 diabetes mellitus with diabetic chronic kidney disease; E87.1 Hypo-osmolality and hyponatremia; N18.30 Chronic kidney disease, stage 3 unspecified; K70.30 Alcoholic cirrhosis of liver without ascites; I44.0 Atrioventricular block, first degree; I44.7 Left bundle-branch block, unspecified; F14.10 Cocaine abuse, uncomplicated; F11.20 Opioid dependence, uncomplicated; R65.21 Severe sepsis with septic shock; F10.20 Alcohol dependence, uncomplicated; E66.01 Morbid (severe) obesity due to excess calories; E83.39 Other disorders of phosphorus metabolism; Z68.38 Body mass index [BMI] 38.0-38.9, adult; G47.33 Obstructive sleep apnea (adult) (pediatric); Z20.822 Contact with and (suspected) exposure to COVID-19; Z88.6 Allergy status to analgesic agent; Z79.84 Long term (current) use of oral hypoglycemic drugs; Z79.899 Other long term (current) drug therapy
CPT/HCPCS: 36415; 36600; 70450; 71045; 71250; 76700; 78580; 80048; 80053; 80061; 80076; 80202; 80307; 81001; 82040; 82140; 82550; 82803; 82947; 83605; 83735; 83880; 84100; 84145; 84439; 84443; 84484; 85007; 85025; 85027; 85379; 85610; 85730; 86704; 86706; 86709; 86803; 87040; 87070; 87086; 87205; 87340; 87493; 87502; 87635; 92526; 92610; 92950; 93005; 93306; 93970; 94002; 94003; 94640; 94660; 94799; 95816; 96365; 96375; 97116; 97163; 97530; 99285; 99291; 99498; A9540; C1758; J0171; J0295; J0456; J0461; J0696; J1940; J2060; J2270; J2405; J2543; J2930; J3010; J3370; J3475; P9047

== ENCOUNTER → 2021-10-22 07:57 | Outpatient (BNVA) | payer MEDICAID, SELFPAY | PROVIDERS: PCP Internal Medicine; Referring Provider Internal Medicine; Visit Provider Nurse Practitioner Family | DX: Z13.89 Encounter for screening for other disorder (principal) ==

== ENCOUNTER 2021-10-30 11:10 | Inpatient (IN) | payer MEDICAID, SELFPAY ==
--- NOTE | ~2021-10-30 | CT_ITS ---
EXAMINATION: CT ABDOMEN AND PELVIS WITHOUT CONTRAST CLINICAL INFORMATION: Flank pain.. Upper renal obstruction COMPARISON: CT abdomen and pelvis without contrast 11/14/2015 TECHNIQUE: Multidetector volumetric imaging was performed from the superior aspect of the liver through the pubic symphysis. Sagittal and coronal reformatted images were obtained on the technologist's workstation. This CT examination was performed using dose optimization techniques as appropriate, variously including the following: *Automated exposure control *Adjustment of mA and/or kV according to patient size (this includes techniques or standardized protocols for targeted exams where dose is matched to indication/reason for exam; i.e. extremities or head) *Use of iterative reconstruction technique DLP: 735 mGy-cm FINDINGS: LUNG BASES: The heart size is enlarged the lung bases are clear. There is minimal bilateral posterior pleural thickening or tiny effusion minimally greater on the right. LIVER, GALLBLADDER, AND BILIARY TREE: The liver is normal in size, shape, and attenuation. No focal hepatic lesion or biliary ductal dilatation is present. The gallbladder is unremarkable with no evidence of radiopaque gallstones, gallbladder wall thickening, or obvious pericholecystic inflammatory changes. PANCREAS: Unremarkable. SPLEEN: Unremarkable. ADRENAL GLANDS: Unremarkable. KIDNEYS AND URETERS: The kidneys are normal in size, shape, and attenuation. No hydronephrosis, hydroureter, or calculi seen. No perinephric stranding. BLADDER: Unremarkable. GASTROINTESTINAL TRACT: There is scattered stool and gas seen throughout the colon without any significant distention. The small bowel loops are normal caliber. Appendix is normal. No inflammatory changes seen in abdomen. There is no free air or free fluid. ABDOMINAL WALL: No significant hernia is appreciated. LYMPH NODES: Normal. VASCULAR: Unremarkable. PELVIC VISCERA: The prostate gland is normal. No free fluid. No abnormal pelvic lymph nodes. No inguinal hernia.. OSSEOUS STRUCTURES: No aggressive lytic or sclerotic process seen. There is mild ventral spondylosis L3-L4 and L4-L5 disc levels. CT/CT abdomen pelvis wo con IMPRESSION: No acute intra-abdominal process seen. Especially there is no radiopaque renal calculi or hydronephrosis. There is bibasilar posterior pleural thickening and/or tiny effusions. Heart size is enlarged. Fleischner guidelines were followed.
[2021-10-30 11:53] VITALS: BP 105/63; PULSE 61; RESP 18; TEMP 36.8; O2SAT 96; BMI 35.2
[2021-10-30 12:13] LABS: MANUAL DIFF FLAG NO
[2021-10-30 12:14] LABS: Basophils Absolute Auto 0.1 X10*3/uL (0.0-0.2); Basophils Percent Auto 0.5 % (0-2); Eosinophils Absolute Auto 0.5 X10*3/uL (0.0-0.4); Eosinophils Percent Auto 3.6 % (0-4); Hemoglobin 10.9 g/dl (14.0-18.0); Imm Gran Abs Auto 0.05 X10*3/uL (0.00-0.03); Imm Gran Pct Auto 0.4 % (0.0-0.4); Lymphocytes Absolute Auto 2.2 X10*3/uL (1.2-4.9); Lymphocytes Percent Auto 16.5 % (20-40); Mean Corpuscular HGB Conc 32.1 g/dl (31.0-36.0); Mean Corpuscular Hemoglobin 29.1 pg (27.0-33.0); Mean Corpuscular Volume 90.9 fL (80.0-98.0); Mean Platelet Volume 10.2 fL (9.4-12.4); Monocytes Percent Auto 7.5 % (2-11); Neutrophils Absolute Auto 9.6 x10*3/uL (2.0-8.3); Neutrophils Percent Auto 71.5 % (45-73); Platelet Count 183 X10*3/uL (160-400); Red Blood Count 3.74 X10*6/uL (4.60-5.80); Red Cell Distribution Width 13.9 % (11.0-16.0); White Blood Count 13.4 X10*3/uL (4.8-10.8)
[2021-10-30 12:48] LABS: Alanine Aminotransferase 23 U/L (0-40); Albumin Level 3.6 g/dL (3.5-5.0); Alkaline Phosphatase 198 U/L (39-117); Anion Gap 17 (12-20); Aspartate Amino Transferase 20 U/L (5-37); Bilirubin Total 0.7 mg/dL (0.0-1.0); Blood Urea Nitrogen 65 mg/dL (9-16); Carbon Dioxide 15 mmol/L (22-29); Chloride 105 mmol/L (96-108); Creatinine Clr Calc Pharmacy 18.8; Estimated Glomerular Filt Rate 14; Glucose Random 109 mg/dL (60-115); Potassium 5.6 mmol/L (3.3-5.1); Sodium 131 mmol/L (135-145); Total Protein 7.6 g/dL (6.5-8.0)
[2021-10-30 17:51] VITALS: BP 127/66; PULSE 59; RESP 20; TEMP 36.7; O2SAT 99
--- NOTE | 2021-10-30 18:04 | ED.GENADULT ---
HPI - General Adult General Chief complaint: Recheck/Abnormal Lab/Rx Stated complaint: Kidney issues sent by PCP Time Seen by Provider: 10/30/21 16:35 Source: patient Mode of arrival: ambulatory Limitations: no limitations History of Present Illness HPI narrative: Patient comes emergency room complaining of elevated renal function. Patient states that his primary care physician called him, told him to come to the emergency room because of his elevated creatinine function. Patient states that he is asymptomatic. Related Data Home Medications Medication Instructions Recorded Confirmed folic acid 1 mg tablet 1 mg PO DAILY 06/18/21 10/30/21 lisinopril 20 mg tablet 20 mg PO DAILY 06/18/21 10/30/21 metformin 850 mg tablet 850 mg PO BIDWM 06/18/21 10/30/21 spironolactone 50 mg tablet 50 mg PO DAILY 06/18/21 10/30/21 thiamine HCl (vitamin B1) 100 mg 100 mg PO DAILY 06/18/21 10/30/21 tablet carvedilol 3.125 mg tablet 1 tab PO BID 09/28/21 10/30/21 omeprazole 40 mg capsule,delayed 40 mg PO DAILY@0630 09/28/21 10/30/21 release prazosin 1 mg capsule 1 cap PO BEDTIME PRN 09/28/21 10/30/21 furosemide 20 mg tablet 1 tab PO DAILY 10/30/21 10/30/21 paroxetine HCl 10 mg tablet 1 tab PO BEDTIME 10/30/21 10/30/21 Previous Rx's Medication Instructions Recorded methylcellulose (laxative) 500 mg 500 mg PO DAILY #30 tab 07/24/21 tablet (Citrucel) ipratropium 20 mcg-albuterol 100 1 puff INHALATION QID 30 Days #4 g 08/17/21 mcg/actuation mist for inhalation (Combivent Respimat) sennosides 8.6 mg tablet (Natural 17.2 mg PO BEDTIME #180 tab 10/12/21 Senna Laxative) simethicone 180 mg capsule (Gas 180 mg PO BID PRN #60 cap 10/12/21 Relief (simethicone)) Allergies Allergy/AdvReac Type Severity Reaction Status Date / Time aspirin [ASPIRIN] Allergy Unknown RASH Verified 10/30/21 11:53 ibuprofen Allergy Unknown nausea and Verified 10/30/21 11:53 vomiting Review of Systems Review of Systems: Constitutional : No Weight loss, No Fever, No Chills, No Night Sweats, No Fatigue, No Malaise ENT/Mouth : No Hearing loss, No Ear Pain, No Nasal Congestion, No Sinus Pain, No Hoarseness, No sore throat, No Rhinorrhea, No Swallowing Difficulty Eyes: No Eye Pain, No Swelling, No Redness, No Foreign Body, No Discharge, No Vision Changes Cardiovascular : No Chest Pain, No SOB, No Dyspnea on Exertion, No Orthopnea, No Edema, No Palpitations Respiratory : No Cough, No Sputum, No Wheezing, No Smoke Exposure, No Dyspnea Gastrointestinal : No Nausea, No Vomiting, No Diarrhea, No Constipation, No abdominal Pain, No Hematochezia, No Melena Genitourinary : no irregular bleeding, No Dysuria, No Urinary Frequency, No Hematuria, No Urinary Incontinence, No Urgency, No Flank Pain, No Urinary Flow Changes, No Hesitancy Musculoskeletal : No joint pain, No Myalgias, No Joint Swelling Skin : No Skin Lesions, No rash Neuro : No Weakness, No Numbness, No Paresthesias, No Loss of Consciousness, No Dizziness, No Headache Psych : No Anxiety/Panic, No Depression, No SI/HI/AH/VH, No Social Issues, Heme/Lymph: No Bruising, No Bleeding,No Lymphadenopathy Endocrine : No Polyuria, No Polydipsia, No Temperature Intolerance PMFSH Past Medical History Medical History Chronic kidney disease CKD (chronic kidney disease) stage 3, GFR 30-59 ml/min Congestive heart failure Diabetes History of opiate therapy Liver cirrhosis Morbid obesity due to excess calories DARRIAN (obstructive sleep apnea) Family History Family History Mother Cancer Diabetes Social History Social History Household Members: None Housing: House Do you presently have visiting nurse or other home services: No Patient Tobacco Use Status: Never used Tobacco e-Cigarette/Vaping Use: Never Used Advance Directives: No Advance Directives Information Provided: No service: No Current occupational status: disabled Physical Exam ED Vital Signs: Vital Signs - 24 hr 10/30/21 11:53 10/30/21 17:51 Temperature 98.2 F 98.1 F Pulse Rate 61 59 Respiratory Rate 18 20 Blood Pressure 105/63 127/66 Pulse Oximetry 96 99 BMI result Body Mass Index 35.2 Const Other: Appearance: Alert. Oriented X3. No acute distress. Eyes: Pupils equal, round and reactive to light. ENT: Pharynx normal. Neck: Normal inspection. Neck supple. No lymph nodes noted. No crepitus CVS: Normal heart rate and rhythm. Pulses normal. Normal S1 and S2 Respiratory: No respiratory distress. Breath sounds normal. No Wheezing. No rales Abdomen: Soft and nontender. No rigidity. No distention. Skin: Skin warm and dry. Normal skin color. Normal skin turgor. Extremities: No lower extremity edema. No Lacerations. No Rash Neuro: Oriented X 3. No motor deficit. No sensory deficit. Moving all extremities. No slurred speech. CN 2 through 12 grossly intact Psych: calm, cooperative, normal affect Course Course Course Narrative: After IV fluids, patient's creatinine did not improve much, potassium 1 actually up. Patient receiving my IV fluids, calcium gluconate, D50 and insulin. EKG within normal limits, no peaked T-waves. CT scan of abdomen pelvis to rule out renal obstruction is pending. Patient states that he feels well, patient is asymptomatic. CT scan does not show any renal obstruction. I discussed the patient with Dr. Nuñez, patient being admitted. Medical Decision Making Lab Data Result diagrams: 10/30/21 12:04 10/30/21 19:11 Labs: Lab Results 10/30/21 10/30/21 10/30/21 Range/Units 12:04 12:04 19:11 WBC 13.4 H (4.8-10.8) X10*3/uL RBC 3.74 L (4.60-5.80) X10*6/uL Hgb 10.9 L (14.0-18.0) g/dl Hct 34.0 L (42.0-52.0) % MCV 90.9 (80.0-98.0) fL MCH 29.1 (27.0-33.0) pg MCHC 32.1 (31.0-36.0) g/dl RDW 13.9 (11.0-16.0) % Plt Count 183 D (160-400) X10*3/uL MPV 10.2 (9.4-12.4) fL Immature Gran % (Auto) 0.4 (0.0-0.4) % Neut % (Auto) 71.5 (45-73) % Lymph % (Auto) 16.5 L (20-40) % [place] % (Auto) 7.5 (2-11) % Eos % (Auto) 3.6 (0-4) % Baso % (Auto) 0.5 (0-2) % Lymph # (Auto) 2.2 (1.2-4.9) X10*3/uL [place] # (Auto) 1.0 (0.1-1.2) X10*3/uL Eos # (Auto) 0.5 H (0.0-0.4) X10*3/uL Baso # (Auto) 0.1 (0.0-0.2) X10*3/uL Abs Immat Gran (auto) 0.05 H (0.00-0.03) X10*3/uL Absolute Neuts (auto) 9.6 H (2.0-8.3) x10*3/uL Absolute Nucleated RBC 0.000 (0.0-0.012) X10*3/uL Nucleated RBC % (auto) 0.0 (0.0-0.2) /100WBC Sodium 131 L 134 L (135-145) mmol/L Potassium 5.6 H D 5.7 H (3.3-5.1) mmol/L Chloride 105 104 (96-108) mmol/L Carbon Dioxide 15 L 19 L (22-29) mmol/L Anion Gap 17 17 (12-20) BUN 65 H D 65 H (9-16) mg/dL Creatinine 4.34 H* 4.01 H* (0.5-1.4) mg/dL Estim Creat Clear Calc 18.8 20.3 Estimated GFR 14 15 Random Glucose 109 114 (60-115) mg/dL Calcium 9.0 D 9.4 (8.4-10.2) mg/dL Total Bilirubin 0.7 (0.0-1.0) mg/dL AST 20 D (5-37) U/L ALT 23 (0-40) U/L Alkaline Phosphatase 198 H (39-117) U/L Total Protein 7.6 D (6.5-8.0) g/dL Albumin 3.6 (3.5-5.0) g/dL Imaging Data CT scan - abdomen: Radiologist's impression: 735 mGy-cm FINDINGS: LUNG BASES: The heart size is enlarged the lung bases are clear. There is minimal bilateral posterior pleural thickening or tiny effusion minimally greater on the right.? LIVER, GALLBLADDER, AND BILIARY TREE: The liver is normal in size, shape, and attenuation. No focal hepatic lesion or biliary ductal dilatation is present. The gallbladder is unremarkable with no evidence of radiopaque gallstones, gallbladder wall thickening, or obvious pericholecystic inflammatory changes.? PANCREAS: Unremarkable.? SPLEEN: Unremarkable.? ADRENAL GLANDS: Unremarkable.? KIDNEYS AND URETERS: The kidneys are normal in size, shape, and attenuation. No hydronephrosis, hydroureter, or calculi seen. No perinephric stranding. ? BLADDER: Unremarkable.? GASTROINTESTINAL TRACT: There is scattered stool and gas seen throughout the colon without any significant distention. The small bowel loops are normal caliber. Appendix is normal. No inflammatory changes seen in abdomen. There is no free air or free fluid.? ABDOMINAL WALL: No significant hernia is appreciated.? LYMPH NODES: Normal. VASCULAR: Unremarkable. PELVIC VISCERA: The prostate gland is normal. No free fluid. No abnormal pelvic lymph nodes. No inguinal hernia..? OSSEOUS STRUCTURES: No aggressive lytic or sclerotic process seen. There is mild ventral spondylosis L3-L4 and L4-L5 disc levels. ? CT/CT abdomen pelvis wo con IMPRESSION: No acute intra-abdominal process seen. Especially there is no radiopaque renal calculi or hydronephrosis. ? There is bibasilar posterior pleural thickening and/or tiny effusions. Heart size is enlarged.? ? Fleischner guidelines were followed. Critical Care Time Critical Care Time Critical Care Time: Yes Total Critical Care Time: 60 Attestation: I have personally provided critical care time. Time includes review of lab data, radiology results, discussion with consultants, and monitoring for potential decompensation. Intervention performed as documented. Discharge Plan Discharge Clinical Impression: Acute kidney injury, Acute hyperkalemia Patient Disposition: Admitted As Inpatient
--- NOTE | 2021-10-30 18:10 | ECG_ITS ---
Test Reason : ABNORMAL LABS Blood Pressure : / mmHG Vent. Rate : 056 BPM Atrial Rate : 056 BPM P-R Int : 170 ms QRS Dur : 086 ms QT Int : 424 ms P-R-T Axes : -10 -10 000 degrees QTc Int : 409 ms Sinus bradycardia Minimal voltage criteria for LVH, may be normal variant ( R in aVL ) Borderline ECG When compared with ECG of 29-SEP-2021 11:45, Inverted T waves have replaced nonspecific T wave abnormality in Inferior leads Nonspecific T wave abnormality no longer evident in Lateral leads Referred By: Yoselyn Anna Electronically Signed By:Andrea Nina
[2021-10-30 19:38] LABS: Anion Gap 17 (12-20); Blood Urea Nitrogen 65 mg/dL (9-16); Calcium 9.4 mg/dL (8.4-10.2); Carbon Dioxide 19 mmol/L (22-29); Chloride 104 mmol/L (96-108); Creatinine Clr Calc Pharmacy 20.3; Estimated Glomerular Filt Rate 15; Glucose Random 114 mg/dL (60-115); Potassium 5.7 mmol/L (3.3-5.1); Sodium 134 mmol/L (135-145)
--- NOTE | 2021-10-30 20:37 | PHA.MEDREC ---
Pharmacy Consult ? Medication Reconciliation Pharmacy has completed the medication reconciliation. Per patient, his lasix dose got DECREASED from 40mg to 20mg recently. He was also put on SPS for 2 days for high potassium which he finished two days ago. Per patient, he was not advised to stop or hold lisinopril or spironolactone. I made sure to ask about those medications in particular.. Thanks Edgardo
[2021-10-30] MEDS: 0.9 % Sodium Chloride 1,000 ML 999 ML IVCONT (20:54)
[2021-10-30] MEDS: Insulin Regular, Human 100 UNIT/ML 3 ML VIAL 10 UNIT IVPUSH (20:54)
[2021-10-30] MEDS: Dextrose 50 % 25 GM/50 ML SYRINGE IVPUSH (20:56)
[2021-10-30] MEDS: Calcium Gluconate/NaCl,Iso-Osm 2 GM/100 ML PLAST..BAG IV (20:56)
[2021-10-30 22:19] LABS: COVID-19 Test Negative (Negative)
[2021-10-30 22:53] VITALS: BP 125/72; PULSE 56; RESP 20; TEMP 36.9; O2SAT 100
--- NOTE | 2021-10-30 22:54 | P.HPHOSP_ITS ---
History of Present Illness Date of Service: 10/30/21 Chief Complaint: abnormal labs 61-year-old male with a past medical history of hypertension, hyperlipidemia, diabetes, history of alcohol abuse, liver cirrhosis / ascites on diuretics; recent admission to the hospital for acute hypoxic respiratory failure/cardiac arrest; history of DARRIAN, CKD; presented to the hospital today with a chief complaint of abnormal labs. Patient reports that he had routine visit with his PCP and had labs done and was called in to go to the ER given elevated creatinine on his labs. Patient denies any chest pain palpitations abdominal pain nausea vomiting or diarrhea. Denies any urinary symptoms. Reports he has been complaint with his home medications. Review of all other systems is negative except mentioned above ER course: Per ER team patient's exam was benign; on labs noted to have elevated creatinine of 4.3 from his baseline of 1.0. Also noted to have elevated potassium levels; no EKG changes; given insulin and dextrose; CT abdomen showed no acute findings; admitted to the hospital for further management [facility] Medical History Chronic kidney disease CKD (chronic kidney disease) stage 3, GFR 30-59 ml/min Congestive heart failure Diabetes History of opiate therapy Liver cirrhosis Morbid obesity due to excess calories DARRIAN (obstructive sleep apnea) Family History Mother Cancer Diabetes Social History Household Members: None Housing: House Do you presently have visiting nurse or other home services: No Patient Tobacco Use Status: Never used Tobacco e-Cigarette/Vaping Use: Never Used Advance Directives: No Advance Directives Information Provided: No service: No Current occupational status: disabled Meds Allergies Allergy/AdvReac Type Severity Reaction Status Date / Time aspirin [ASPIRIN] Allergy Unknown RASH Verified 10/30/21 11:53 ibuprofen Allergy Unknown nausea and Verified 10/30/21 11:53 vomiting Active Medications: Current Medications Carvedilol (Carvedilol 3.125 Mg Tablet) 3.125 mg PO BID THAI; Protocol Dextrose (Dextrose 50 % 25 Gm/50 Ml Syringe) 25 gm IVPUSH Q15M PRN; Protocol PRN Reason: per Hypoglycemia Standing Ord. Folic Acid (Folic Acid 1 Mg Tablet) 1 mg PO DAILY THAI Glucose (Glucose Gel 15 Gm Gel..Gram.) 15 gm PO Q15M PRN; Protocol PRN Reason: per Hypoglycemia Standing Ord. Heparin Sodium (Porcine) (Heparin Sodium,Porcine 5,000 Unit/Ml Vial) 5,000 unit SUBCUT Q8H [facility] Sodium Chloride (Ns) 1,000 mls @ 75 mls/hr IVCONT .[id number] [facility] Insulin Human Lispro (Insulin Lispro 100 Unit/Ml 3 Ml Vial) 0 unit SUBCUT QIDACHS [facility]; Protocol Melatonin (Melatonin 3 Mg Tablet) 6 mg PO BEDTIME PRN PRN Reason: Insomnia Non-Formulary Medication (Ipratropium-Albuterol [Combivent Respimat]) 1 puff INHALE QID [facility] Omeprazole (Omeprazole 40 Mg Capsule.Dr) 40 mg PO DAILY@0630 [facility] Paroxetine HCl (Paroxetine Hcl 10 Mg Tablet) 10 mg PO BEDTIME [facility] Pharmacy Consult (Consult Rx Perform Med Rec) 1 each MISCELLANE ONCE PRN PRN Reason: Consult order Prazosin HCl (Prazosin Hcl 1 Mg Capsule) 1 mg PO BEDTIME PRN; Protocol PRN Reason: nightmares Senna (Sennosides 8.6 Mg Tablet) 17.2 mg PO BEDTIME PRN PRN Reason: Constipation Senna (Sennosides 8.6 Mg Tablet) 17.2 mg PO BEDTIME [facility] Sodium Chloride (0.9 % Sodium Chloride Flush 3 Ml Syringe) 3 ml IVFLUSH QSHIFT [facility] Thiamine HCl (Thiamine Hcl 100 Mg Tablet) 100 mg PO DAILY [facility] Home Medications Medication Instructions Recorded Confirmed Last Taken Type folic acid 1 mg tablet 1 mg PO DAILY 06/18/21 10/30/21 10/30/21 History lisinopril 20 mg tablet 20 mg PO DAILY 06/18/21 10/30/21 10/30/21 History metformin 850 mg tablet 850 mg PO BIDWM 06/18/21 10/30/21 10/30/21 History spironolactone 50 mg tablet 50 mg PO DAILY 06/18/21 10/30/21 10/30/21 History thiamine HCl (vitamin B1) 100 mg 100 mg PO DAILY 06/18/21 10/30/21 10/30/21 History tablet carvedilol 3.125 mg tablet 1 tab PO BID 09/28/21 10/30/21 10/30/21 History omeprazole 40 mg capsule,delayed 40 mg PO DAILY@0630 09/28/21 10/30/21 10/30/21 History release prazosin 1 mg capsule 1 cap PO BEDTIME PRN 09/28/21 10/30/21 10/29/21 History furosemide 20 mg tablet 1 tab PO DAILY 10/30/21 10/30/21 10/30/21 History paroxetine HCl 10 mg tablet 1 tab PO BEDTIME 10/30/21 10/30/21 10/29/21 History Physical Exam Vital Signs and Narrative: Vital Signs: Last Vital Signs Temp 98.4 F 10/30/21 22:53 Pulse 56 10/30/21 22:53 Resp 20 10/30/21 22:53 BP 125/72 10/30/21 22:53 Pulse Ox 100 10/30/21 22:53 Oxygen Flow Rate 1 10/30/21 11:53 BMI result Body Mass Index 35.2 Gen: Appears be in no acute distress HEENT: NCAT, Moist mucosa. Pulmonary: Vesicular breath sounds, fair air entry CVS: Normal S1-S2 Abdomen: BS+, Soft, Nontender Extremities: Warm well perfused Neuro: Alert and awake. Results Labs CBC and Chem 7: 10/30/21 12:04 10/30/21 19:11 Labs: Laboratory Results - last 24 hr 10/30/21 10/30/21 10/30/21 12:04 12:04 19:11 MCV 90.9 MCH 29.1 MCHC 32.1 RDW 13.9 Plt Count 183 D MPV 10.2 Immature Gran % (Auto) 0.4 Neut % (Auto) 71.5 Lymph % (Auto) 16.5 L [place] % (Auto) 7.5 Eos % (Auto) 3.6 Baso % (Auto) 0.5 Lymph # (Auto) 2.2 [place] # (Auto) 1.0 Eos # (Auto) 0.5 H Baso # (Auto) 0.1 Abs Immat Gran (auto) 0.05 H Absolute Neuts (auto) 9.6 H Absolute Nucleated RBC 0.000 Nucleated RBC % (auto) 0.0 Anion Gap 17 17 Estim Creat Clear Calc 18.8 20.3 Estimated GFR 14 15 Random Glucose 109 114 Calcium 9.0 D 9.4 Total Bilirubin 0.7 AST 20 D ALT 23 Alkaline Phosphatase 198 H Total Protein 7.6 D Albumin 3.6 COVID-19 ([facility]) COVID-19 Clin Com 10/30/21 21:56 MCV MCH MCHC RDW Plt Count MPV Immature Gran % (Auto) Neut % (Auto) Lymph % (Auto) [place] % (Auto) Eos % (Auto) Baso % (Auto) Lymph # (Auto) [place] # (Auto) Eos # (Auto) Baso # (Auto) Abs Immat Gran (auto) Absolute Neuts (auto) Absolute Nucleated RBC Nucleated RBC % (auto) Anion Gap Estim Creat Clear Calc Estimated GFR Random Glucose Calcium Total Bilirubin AST ALT Alkaline Phosphatase Total Protein Albumin COVID-19 ([facility]) Negative COVID-19 Clin Com See Note Imaging Radiologist's Impressions: Impressions Abdomen/Pelvis CT 10/30/21 20:18 IMPRESSION: No acute intra-abdominal process seen. Especially there is no radiopaque renal calculi or hydronephrosis. There is bibasilar posterior pleural thickening and/or tiny effusions. Heart size is enlarged. Fleischner guidelines were followed. Assessment and Plan (1) Acute kidney injury: Status: Acute (2) Acute hyperkalemia: Status: Acute Plan 61-year-old male with a past medical history of hypertension, hyperlipidemia, diabetes, history of alcohol abuse, liver cirrhosis / ascites on diuretics; recent admission to the hospital for acute hypoxic respiratory failure/cardiac arrest; history of DARRIAN, CKD; presented to the hospital today with a chief complaint of abnormal labs. noted to have ZANE. Admitted for further management. ZANE: Likely prerenal Patient also on Lasix, Aldactone, lisinopril- will hold for now Avoid nephrotoxins Gentle IV fluids Nephrology consult CT abdomen showed no acute intra abdominal process Hyperkalemia: No EKG changes. Received insulin and dextrose. Will repeat BMP. history of diabetes: Insulin sliding scale. Hold home metformin. History of hypertension: Hold home lisinopril. Continue home carvedilol. DVT prophylaxis: Subcu heparin Code status: Full code Quality Stroke Does the patient have a stroke diagnosis?: No VTE Prior VTE?: No VTE Risk Level:: Medical - moderate - high VTE Device Contraindication: Treatment Not Indicated VTE Drug Contraindication: N/A - Med Ordered
[2021-10-30] MEDS: Heparin Sodium,Porcine 5,000 UNIT/ML VIAL 5000 UNIT SUBCUT (23:03)
[2021-10-31] VITALS (9 sets, daily range): BP systolic 95–137; BP diastolic 54–73; PULSE 54–96; RESP 13–22; TEMP 36.4–36.8; O2SAT 93–100
[2021-10-31 00:22] LABS: Appearance Urine CLEAR; Color Urine YELLOW; Glucose Urine UA NEG (NEG); Leukocyte Esterase Urine NEG (NEG); Nitrite Urine NEG (NEG); PH 5.5 (5.0-8.0); Urine Blood NEG (NEG); Urine Ketones NEG (NEG); Urine Protein NEG (NEG-TRACE)
[2021-10-31] MEDS: 0.9 % Sodium Chloride 1,000 ML 75 ML IVCONT ×2 (00:51→15:43)
[2021-10-31 04:55] LABS: MANUAL DIFF FLAG NO
[2021-10-31 04:56] LABS: Basophils Absolute Auto 0.1 X10*3/uL (0.0-0.2); Basophils Percent Auto 0.6 % (0-2); Eosinophils Absolute Auto 0.5 X10*3/uL (0.0-0.4); Eosinophils Percent Auto 4.4 % (0-4); Hematocrit 32.4 % (42.0-52.0); Hemoglobin 10.6 g/dl (14.0-18.0); Imm Gran Abs Auto 0.03 X10*3/uL (0.00-0.03); Imm Gran Pct Auto 0.3 % (0.0-0.4); Lymphocytes Absolute Auto 1.7 X10*3/uL (1.2-4.9); Lymphocytes Percent Auto 15.3 % (20-40); Mean Corpuscular HGB Conc 32.7 g/dl (31.0-36.0); Mean Corpuscular Hemoglobin 29.6 pg (27.0-33.0); Mean Corpuscular Volume 90.5 fL (80.0-98.0); Mean Platelet Volume 10.3 fL (9.4-12.4); Monocytes Percent Auto 8.8 % (2-11); Neutrophils Absolute Auto 7.6 x10*3/uL (2.0-8.3); Neutrophils Percent Auto 70.6 % (45-73); Platelet Count 171 X10*3/uL (160-400); Red Blood Count 3.58 X10*6/uL (4.60-5.80); Red Cell Distribution Width 13.8 % (11.0-16.0); White Blood Count 10.8 X10*3/uL (4.8-10.8)
[2021-10-31 05:19] LABS: Anion Gap 13 (12-20); Blood Urea Nitrogen 56 mg/dL (9-16); Calcium 9.2 mg/dL (8.4-10.2); Carbon Dioxide 20 mmol/L (22-29); Chloride 109 mmol/L (96-108); Creatinine Clr Calc Pharmacy 26.9; Estimated Glomerular Filt Rate 21; Glucose Random 131 mg/dL (60-115); Potassium 5.2 mmol/L (3.3-5.1); Sodium 137 mmol/L (135-145)
[2021-10-31] MEDS: Omeprazole 40 MG CAPSULE.DR PO (06:31)
[2021-10-31 07:40] LABS: Glucose, Whole Blood 91 mg/dL (60-115)
[2021-10-31] MEDS: Albuterol/Iprat 2.5/0.5MG 3 ML AMPUL.NEB INHALE ×4 (08:02→20:04)
[2021-10-31] MEDS: Thiamine HCL 100 MG TABLET PO (08:20)
[2021-10-31] MEDS: Heparin Sodium,Porcine 5,000 UNIT/ML VIAL 5000 UNIT SUBCUT ×2 (08:20→15:43)
[2021-10-31] MEDS: Folic Acid 1 MG TABLET PO (08:20)
[2021-10-31] MEDS: carvediloL 3.125 MG TABLET PO (08:20)
--- NOTE | 2021-10-31 08:57 | HO.PM.IMPN ---
Subjective Subjective Date of Service: 10/31/21 Interval History: zane vs prerenal Review of Systems Patient denies any chest pain or shortness of breath or abdominal pain or fever chills or cough or phlegm. Eating better, encouraged for hydration. Physical Exam Vital Signs: Vital Signs: Last Vital Signs Temp 97.5 F 10/31/21 08:15 Pulse 55 10/31/21 08:15 Resp 20 10/31/21 08:15 BP 99/68 10/31/21 08:15 Pulse Ox 95 10/31/21 08:15 Oxygen Flow Rate 1 10/30/21 11:53 BMI result Body Mass Index 35.2 Gen: aox3,no acute distress HEENT:? NCAT,? Moist mucosa. Pulmonary:? fair air entry, no rales or wheezing CVS:? Normal S1-S2 Abdomen: BS+, Soft, Nontender Extremities:? Warm well perfused Neuro:? Alert and awake. Objective Data Active Medications Albuterol/Ipratropium (Albuterol/Iprat 2.5/0.5mg 3 Ml Ampul.Neb) 3 ml INHALE RQID [facility] Last Admin: 10/31/21 08:02 Dose: 3 ml Documented by: SHALINI Carvedilol (Carvedilol 3.125 Mg Tablet) 3.125 mg PO BID [facility]; Protocol Last Admin: 10/31/21 08:20 Dose: 3.125 mg Documented by: AKSHAT-BENNETTSK Dextrose (Dextrose 50 % 25 Gm/50 Ml Syringe) 25 gm IVPUSH Q15M PRN; Protocol PRN Reason: per Hypoglycemia Standing Ord. Folic Acid (Folic Acid 1 Mg Tablet) 1 mg PO DAILY [facility] Last Admin: 10/31/21 08:20 Dose: 1 mg Documented by: AKSHAT-DAVID Glucose (Glucose Gel 15 Gm Gel..Gram.) 15 gm PO Q15M PRN; Protocol PRN Reason: per Hypoglycemia Standing Ord. Heparin Sodium (Porcine) (Heparin Sodium,Porcine 5,000 Unit/Ml Vial) 5,000 unit SUBCUT Q8H [facility] Last Admin: 10/31/21 08:20 Dose: 5,000 unit Documented by: AKSHAT-DAVID Sodium Chloride (Ns) 1,000 mls @ 75 mls/hr IVCONT .[id number] [facility] Last Admin: 10/31/21 00:51 Dose: 75 mls/hr Documented by: JACKY Albumin Human (Kedbumin 25 %) 100 mls @ 100 mls/hr IV Q6H [facility] Stop: 11/01/21 03:59 Insulin Human Lispro (Insulin Lispro 100 Unit/Ml 3 Ml Vial) 0 unit SUBCUT QIDACHS [facility]; Protocol Last Admin: 10/31/21 08:11 Dose: Not Given Documented by: REMINGTON Non-Admin Reason: No Insulin Coverage Melatonin (Melatonin 3 Mg Tablet) 6 mg PO BEDTIME PRN PRN Reason: Insomnia Omeprazole (Omeprazole 40 Mg Capsule.) 40 mg PO DAILY@0630 [facility] Last Admin: 10/31/21 06:31 Dose: 40 mg Documented by: ANTWAN Paroxetine HCl (Paroxetine Hcl 10 Mg Tablet) 10 mg PO BEDTIME [facility] Pharmacy Consult (Consult Rx Perform Med Rec) 1 each MISCELLANE ONCE PRN PRN Reason: Consult order Prazosin HCl (Prazosin Hcl 1 Mg Capsule) 1 mg PO BEDTIME PRN; Protocol PRN Reason: nightmares Senna (Sennosides 8.6 Mg Tablet) 17.2 mg PO BEDTIME PRN PRN Reason: Constipation Senna (Sennosides 8.6 Mg Tablet) 17.2 mg PO BEDTIME [facility] Sodium Chloride (0.9 % Sodium Chloride Flush 3 Ml Syringe) 3 ml IVFLUSH QSHIFT [facility] Last Admin: 10/31/21 08:11 Dose: Not Given Documented by: REMINGTON Non-Admin Reason: IV Running Thiamine HCl (Thiamine Hcl 100 Mg Tablet) 100 mg PO DAILY [facility] Last Admin: 10/31/21 08:20 Dose: 100 mg Documented by: REMINGTON Labs CBC & Chem 7: 10/31/21 04:49 10/31/21 04:49 Labs: Laboratory Results - last 24 hr 10/30/21 10/30/21 10/30/21 12:04 12:04 19:11 MCV 90.9 MCH 29.1 MCHC 32.1 RDW 13.9 Plt Count 183 D MPV 10.2 Immature Gran % (Auto) 0.4 Neut % (Auto) 71.5 Lymph % (Auto) 16.5 L [place] % (Auto) 7.5 Eos % (Auto) 3.6 Baso % (Auto) 0.5 Lymph # (Auto) 2.2 [place] # (Auto) 1.0 Eos # (Auto) 0.5 H Baso # (Auto) 0.1 Abs Immat Gran (auto) 0.05 H Absolute Neuts (auto) 9.6 H Absolute Nucleated RBC 0.000 Nucleated RBC % (auto) 0.0 Anion Gap 17 17 Estim Creat Clear Calc 18.8 20.3 Estimated GFR 14 15 POC Glucose Random Glucose 109 114 Calcium 9.0 D 9.4 Total Bilirubin 0.7 AST 20 D ALT 23 Alkaline Phosphatase 198 H Total Protein 7.6 D Albumin 3.6 Urine Color Urine Appearance Urine pH Ur Specific [place] Urine Protein Urine Glucose (UA) Urine Ketones Urine Blood Urine Nitrite Ur Leukocyte Esterase COVID-19 (SHERITA) [employer] Com 10/30/21 10/31/21 10/31/21 21:56 00:02 04:49 MCV 90.5 MCH 29.6 MCHC 32.7 RDW 13.8 Plt Count 171 MPV 10.3 Immature Gran % (Auto) 0.3 Neut % (Auto) 70.6 Lymph % (Auto) 15.3 L [place] % (Auto) 8.8 Eos % (Auto) 4.4 H Baso % (Auto) 0.6 Lymph # (Auto) 1.7 [place] # (Auto) 1.0 Eos # (Auto) 0.5 H Baso # (Auto) 0.1 Abs Immat Gran (auto) 0.03 Absolute Neuts (auto) 7.6 Absolute Nucleated RBC 0.000 Nucleated RBC % (auto) 0.0 Anion Gap Estim Creat Clear Calc Estimated GFR POC Glucose Random Glucose Calcium Total Bilirubin AST ALT Alkaline Phosphatase Total Protein Albumin Urine Color YELLOW Urine Appearance CLEAR Urine pH 5.5 Ur Specific [place] 1.010 Urine Protein NEG Urine Glucose (UA) NEG Urine Ketones NEG Urine Blood NEG Urine Nitrite NEG Ur Leukocyte Esterase NEG COVID-19 (SHERITA) Negative COVID-19 [employer] Com See Note 10/31/21 10/31/21 04:49 07:32 MCV MCH MCHC RDW Plt Count MPV Immature Gran % (Auto) Neut % (Auto) Lymph % (Auto) [place] % (Auto) Eos % (Auto) Baso % (Auto) Lymph # (Auto) [place] # (Auto) Eos # (Auto) Baso # (Auto) Abs Immat Gran (auto) Absolute Neuts (auto) Absolute Nucleated RBC Nucleated RBC % (auto) Anion Gap 13 Estim Creat Clear Calc 26.9 Estimated GFR 21 POC Glucose 91 Random Glucose 131 H Calcium 9.2 Total Bilirubin AST ALT Alkaline Phosphatase Total Protein Albumin Urine Color Urine Appearance Urine pH Ur Specific [place] Urine Protein Urine Glucose (UA) Urine Ketones Urine Blood Urine Nitrite Ur Leukocyte Esterase COVID-19 (SHERITA) COVID-19 Clin Com Assessment and Plan (1) Acute kidney injury: Status: Acute (2) Acute hyperkalemia: Status: Acute Plan 61-year-old male with a past medical history of hypertension, hyperlipidemia, diabetes, history of alcohol abuse, liver cirrhosis / ascites on diuretics; recent admission to the hospital for acute hypoxic respiratory failure/cardiac arrest;? history of DARRIAN,? CKD; presented to the hospital today with a chief complaint of abnormal labs. ? noted to have ZANE.? Admitted for further management.? ZANE: Likely prerenal Patient also on Lasix, Aldactone, lisinopril- will hold for now Avoid nephrotoxins Gentle IV fluids- cr slightly improving as well hyperkalemia. Nephrology consult CT abdomen showed no acute intra abdominal process Hyperkalemia:? No EKG changes.? Received insulin and dextrose.? Will repeat BMP.? ?history of diabetes:? Insulin sliding scale.? Hold home metformin. History of hypertension: Hold home lisinopril.? Continue home carvedilol.? History of DARRIAN CPAP at bedtime hoping it will improve his respiratory status Liver cirrhosis Patient report being unaware of diagnosis but he is on medications to treat it Negative hepatitis profile Continue Aldactone Alcohol abuse Continue thiamine and folic acid Type 2 diabetes: fs flactuating 90-154 SSI diabetic diet DVT prophylaxis:? Subcu heparin Quality Stroke Does the patient have a stroke diagnosis?: No VTE Prior VTE?: No VTE Risk Level:: Medical - moderate - high VTE Device Contraindication: Treatment Not Indicated VTE Drug Contraindication: N/A - Med Ordered
[2021-10-31] MEDS: Albumin Human 25 % 100 ML IV ×3 (11:15→20:27)
[2021-10-31 12:16] LABS: Glucose, Whole Blood 119 mg/dL (60-115)
--- NOTE | 2021-10-31 13:33 | PC.NURSE ---
Pt is A&Ox4, tremulous in hands, per this is not new. Pt lungs diminished throughout, SB on monitor, O2 removed due to O2 sat of 100%. Pt offers no complaints of pain, fluids running as per MAR orders, Call castillo within reach. Will continue to monitor.
--- NOTE | 2021-10-31 14:59 | MHC.CM.PN ---
Met with pt and had a phone conversation with his dtr/HCP #2, Yoselyn regarding d/c needs. Pt known to this CM from recent prolonged ICU stay. Pt resides at home with his long time significant other and has services through [facility] - skilled RN, PT and OT. [facility] and uses a walker. Pt requires assistance with all ADL's including meals. HCP on file and verified. D/C is for a return to home with existing supports and [facility]. Vaccinated x3. Family to transport
[2021-10-31 15:53] LABS: Glucose, Whole Blood 154 mg/dL (60-115)
[2021-10-31 19:22] LABS: Glucose, Whole Blood 127 mg/dL (60-115)
[2021-10-31] MEDS: Sennosides 8.6 MG TABLET 17.2 MG PO (20:16)
[2021-10-31] MEDS: PARoxetine HCL 10 MG TABLET PO (20:16)
--- NOTE | 2021-10-31 20:32 | PM.CNNEP ---
History of Present Illness Reason for Consult Consult date: 10/31/21 Reason for consult: ZANE, Hyperkalemia Chief Complaint Chief complaint: Hyperkalemia/ZANE History of Present Illness Narrative: 61-year-old male with a past medical history of hypertension, hyperlipidemia, diabetes, history of alcohol abuse, liver cirrhosis / ascites on diuretics; recent admission to the hospital for acute hypoxic respiratory failure/cardiac arrest; history of DARRIAN, CKD; presented to the hospital for abnormal labs. Patient reports that he had routine visit with his PCP and had labs done and was called in to go to the ER given elevated creatinine on his labs. Review of Systems Review of Systems Yes all other systems are reviewed and are negative Constitutional: Reports as per HPI Eyes: Reports as per HPI PMFSH Past Medical History Medical History Chronic kidney disease CKD (chronic kidney disease) stage 3, GFR 30-59 ml/min Congestive heart failure Diabetes History of opiate therapy Liver cirrhosis Morbid obesity due to excess calories DARRIAN (obstructive sleep apnea) Family History Family History Mother Cancer Diabetes Social History Social History Household Members: None Housing: House Do you presently have visiting nurse or other home services: No Patient Tobacco Use Status: Never used Tobacco e-Cigarette/Vaping Use: Never Used Advance Directives: No Advance Directives Information Provided: No service: No Current occupational status: disabled Meds Allergies Allergy/AdvReac Type Severity Reaction Status Date / Time aspirin [ASPIRIN] Allergy Unknown RASH Verified 10/30/21 11:53 ibuprofen Allergy Unknown nausea and Verified 10/30/21 11:53 vomiting Active Medications: Current Medications Albuterol/Ipratropium (Albuterol/Iprat 2.5/0.5mg 3 Ml Ampul.Neb) 3 ml INHALE RQID [facility] Last Admin: 10/31/21 20:04 Dose: 3 ml Documented by: Carvedilol (Carvedilol 3.125 Mg Tablet) 3.125 mg PO BID [facility]; Protocol Last Admin: 10/31/21 20:21 Dose: Not Given Documented by: Dextrose (Dextrose 50 % 25 Gm/50 Ml Syringe) 25 gm IVPUSH Q15M PRN; Protocol PRN Reason: per Hypoglycemia Standing Ord. Folic Acid (Folic Acid 1 Mg Tablet) 1 mg PO DAILY [facility] Last Admin: 10/31/21 08:20 Dose: 1 mg Documented by: Glucose (Glucose Gel 15 Gm Gel..Gram.) 15 gm PO Q15M PRN; Protocol PRN Reason: per Hypoglycemia Standing Ord. Heparin Sodium (Porcine) (Heparin Sodium,Porcine 5,000 Unit/Ml Vial) 5,000 unit SUBCUT Q8H [facility] Last Admin: 10/31/21 15:43 Dose: 5,000 unit Documented by: Sodium Chloride (Ns) 1,000 mls @ 75 mls/hr IVCONT .[id number] [facility] Last Admin: 10/31/21 15:43 Dose: 75 mls/hr Documented by: Albumin Human (Kedbumin 25 %) 100 mls @ 100 mls/hr IV Q6H [facility] [place] Stop: 11/01/21 03:59 Last Admin: 10/31/21 20:27 Dose: 100 mls/hr Documented by: Insulin Human Lispro (Insulin Lispro 100 Unit/Ml 3 Ml Vial) 0 unit SUBCUT QIDACHS [facility]; Protocol Last Admin: 10/31/21 15:58 Dose: Not Given Documented by: Melatonin (Melatonin 3 Mg Tablet) 6 mg PO BEDTIME PRN PRN Reason: Insomnia Omeprazole (Omeprazole 40 Mg Capsule.Dr) 40 mg PO DAILY@0630 [facility] [place] Last Admin: 10/31/21 06:31 Dose: 40 mg Documented by: Paroxetine HCl (Paroxetine Hcl 10 Mg Tablet) 10 mg PO BEDTIME [facility] [place] Last Admin: 10/31/21 20:16 Dose: 10 mg Documented by: Pharmacy Consult (Consult Rx Perform Med Rec) 1 each MISCELLANE ONCE PRN PRN Reason: Consult order Prazosin HCl (Prazosin Hcl 1 Mg Capsule) 1 mg PO BEDTIME PRN; Protocol PRN Reason: nightmares Senna (Sennosides 8.6 Mg Tablet) 17.2 mg PO BEDTIME PRN PRN Reason: Constipation Senna (Sennosides 8.6 Mg Tablet) 17.2 mg PO BEDTIME [facility] [place] Last Admin: 10/31/21 20:16 Dose: 17.2 mg Documented by: Sodium Chloride (0.9 % Sodium Chloride Flush 3 Ml Syringe) 3 ml IVFLUSH QSHIFT [facility] [place] Last Admin: 10/31/21 15:58 Dose: Not Given Documented by: Thiamine HCl (Thiamine Hcl 100 Mg Tablet) 100 mg PO DAILY [facility] [place] Last Admin: 10/31/21 08:20 Dose: 100 mg Documented by: Home Medications Medication Instructions Recorded Confirmed Last Taken Type folic acid 1 mg tablet 1 mg PO DAILY 06/18/21 10/30/21 10/30/21 History lisinopril 20 mg tablet 20 mg PO DAILY 06/18/21 10/30/21 10/30/21 History metformin 850 mg tablet 850 mg PO BIDWM 06/18/21 10/30/21 10/30/21 History spironolactone 50 mg tablet 50 mg PO DAILY 06/18/21 10/30/21 10/30/21 History thiamine HCl (vitamin B1) 100 mg 100 mg PO DAILY 06/18/21 10/30/21 10/30/21 History tablet carvedilol 3.125 mg tablet 1 tab PO BID 09/28/21 10/30/21 10/30/21 History omeprazole 40 mg capsule,delayed 40 mg PO DAILY@0630 09/28/21 10/30/21 10/30/21 History release prazosin 1 mg capsule 1 cap PO BEDTIME PRN 09/28/21 10/30/21 10/29/21 History furosemide 20 mg tablet 1 tab PO DAILY 10/30/21 10/30/21 10/30/21 History paroxetine HCl 10 mg tablet 1 tab PO BEDTIME 10/30/21 10/30/21 10/29/21 History Physical Exam Vital Signs: Last Vital Signs Temp 98.1 F 10/31/21 20:00 Pulse 54 10/31/21 20:05 Resp 14 10/31/21 20:05 BP 137/73 10/31/21 20:00 Pulse Ox 96 10/31/21 20:00 Oxygen Flow Rate 1 10/30/21 11:53 BMI result Body Mass Index 35.2 Const General: cooperative, comfortable and no acute distress Orientation/consciousness: patient oriented x3 HEENT Head: Yes normal to inspection, Yes normocephalic and Yes atraumatic Neck Neck: Yes no JVD Resp Effort & Inspection: normal respiratory effort Auscultation: clear to auscultation bilaterally Cardio Jugular venous distension: no JVD Rate: regular rate Rhythm: regular rhythm Heart sounds: S1 normal heart sound present and S2 normal heart sound present Neuro General: patient oriented x3 Extrem General: Yes no clubbing, cyanosis or edema Results Lab Results Result Diagrams: 10/31/21 04:49 10/31/21 04:49 Lab results: Chemistry 10/30/21 10/30/21 10/31/21 12:04 19:11 04:49 Sodium 131 L 134 L 137 Potassium 5.6 H D 5.7 H 5.2 H Carbon Dioxide 15 L 19 L 20 L BUN 65 H D 65 H 56 H Creatinine 4.34 H* 4.01 H* 3.04 H Calcium 9.0 D 9.4 9.2 Hematology 10/30/21 10/31/21 12:04 04:49 WBC 13.4 H 10.8 Hgb 10.9 L 10.6 L Plt Count 183 D 171 Urinalysis 10/31/21 00:02 Urine Color YELLOW Urine Appearance CLEAR Urine pH 5.5 Ur Specific [place] 1.010 Urine Protein NEG Urine Glucose (UA) NEG Urine Ketones NEG Urine Blood NEG Urine Nitrite NEG Ur Leukocyte Esterase NEG Assessment and Plan (1) Acute kidney injury: Status: Acute (2) Acute hyperkalemia: Status: Acute Plan 61-year-old male with a past medical history of hypertension, hyperlipidemia, diabetes, history of alcohol abuse, liver cirrhosis / ascites on diuretics; recent admission to the hospital for acute hypoxic respiratory failure/cardiac arrest; history of DARRIAN, CKD; presented to the hospital for abnormal labs. Patient reports that he had routine visit with his PCP and had labs done and was called in to go to the ER given elevated creatinine on his labs. #) ZANE: ZANE due to pre-renal etiology and low flow state from Hepatorenal physiology agree with albumin to defend intravascular space. Gentle ivf's with NS ok to assist with distal sodium delivery and treatment of hyperkalemia. WOuld provide NS after albumin. no need for diuretics at this time Hold acei/aldactone. Midodrine to maintain MAP > 65 no indication for octreotide. Lokelma 10 Gm prn K>5.0 Procedures Date of Service Date of Service: 10/31/21
--- NOTE | 2021-10-31 20:35 | PC.NURSE ---
Addendum entered by Rhonda Nicole 11/01/21 06:53: report given to ERICKA Hendrix Addendum entered by Rhonda Nicole 10/31/21 21:36: pt is alert and oriented. on continuos cardiac monitoring. denies any chest pain or sob. Original Note: report received from ERICKA Reeves
[2021-11-01] VITALS (9 sets, daily range): BP systolic 108–152; BP diastolic 52–95; PULSE 47–98; RESP 16–20; TEMP 36.3–36.6; O2SAT 94–100
[2021-11-01] MEDS: Albumin Human 25 % 100 ML IV ×4 (02:52→20:30)
[2021-11-01 05:16] LABS: Anion Gap 13 (12-20); Blood Urea Nitrogen 42 mg/dL (9-16); Calcium 9.6 mg/dL (8.4-10.2); Carbon Dioxide 21 mmol/L (22-29); Chloride 113 mmol/L (96-108); Creatinine Clr Calc Pharmacy 40.9; Estimated Glomerular Filt Rate 34; Glucose Random 144 mg/dL (60-115); Potassium 5.1 mmol/L (3.3-5.1); Sodium 142 mmol/L (135-145)
[2021-11-01] MEDS: Omeprazole 40 MG CAPSULE.DR PO (06:10)
[2021-11-01] MEDS: Heparin Sodium,Porcine 5,000 UNIT/ML VIAL 5000 UNIT SUBCUT ×3 (06:34→22:27)
[2021-11-01 07:40] LABS: Glucose, Whole Blood 120 mg/dL (60-115)
[2021-11-01] MEDS: 0.9 % Sodium Chloride 1,000 ML 50 ML IVCONT (08:05)
[2021-11-01] MEDS: Thiamine HCL 100 MG TABLET PO (08:06)
[2021-11-01] MEDS: Folic Acid 1 MG TABLET PO (08:06)
[2021-11-01] MEDS: carvediloL 3.125 MG TABLET PO (08:06)
[2021-11-01] MEDS: Albuterol/Iprat 2.5/0.5MG 3 ML AMPUL.NEB INHALE ×3 (08:41→15:24)
--- NOTE | 2021-11-01 08:41 | P.CDIC_ITS ---
CDI Concurrent Query Documentation Clarification: PHYSICIAN'S DOCUMENTATION REQUEST Date of Query: 11/01/21 0842 Patient Name: Isael Britton Admit Date: 10/30/21 Dear Doctor, A review of the medical record indicates additional documentation may be needed. Please review below and update the documentation accordingly. Clinical Indicators: Risk Factors/Clinical Indicators/Treatments PMH: Congestive heart failure Home medication: Furosemide 20 mg Tab Please provide further specificity regarding the most likely type and acuity of CHF you are evaluating, treating, or monitoring. Examples include: Type: * Systolic * Diastolic * Combined Systolic/Diastolic * Other ? please specify * Unable to determine Acuity: * Acute * Chronic * Acute on chronic * Unable to determine Use of terms such as suspected, likely, concern for, or probable (associated with a specific diagnosis that is being evaluated, monitored, or treated as if it exists) are acceptable and can be coded in the inpatient setting, when documented at the time of discharge. Thank you, Leatha Bolanos [facility], CDIS Extension: [phone] Please use your independent medical judgment in providing your response. THIS QUERY IS PART OF THE PERMANENT MEDICAL RECORD Provider Response: Other Other Diagnosis: chf stable -hold lasix due to rafa
[2021-11-01 12:14] LABS: Glucose, Whole Blood 105 mg/dL (60-115)
--- NOTE | 2021-11-01 12:49 | PC.NURSE ---
patient a&ox3, sitting at bedside, family cpr ambulance driver intact, sinus neri 50s, ivf running per order, pt denies pain or discomfort, call castillo within reach,will continue to monitor
--- NOTE | 2021-11-01 14:25 | PC.NURSE ---
pt medicated per order
--- NOTE | 2021-11-01 17:24 | P.PNIM_ITS ---
Subjective Subjective Date of Service: 11/01/21 Interval History: zane vs prerenal Review of Systems Encouraged for hydration, denies any chest pain or shortness of breath or abdominal pain or fever or chills or nausea or vomiting Physical Exam Vital Signs: Vital Signs: Last Vital Signs Temp 97.5 F 11/01/21 14:33 Pulse 47 L 11/01/21 15:24 Resp 20 11/01/21 15:24 BP 130/95 H 11/01/21 14:33 Pulse Ox 97 11/01/21 14:33 Oxygen Flow Rate 1 10/30/21 11:53 BMI result Body Mass Index 35.2 Gen: aox3,no acute distress HEENT:? NCAT,? Moist mucosa. Pulmonary:? fair air entry, no rales or wheezing CVS:? Normal S1-S2 Abdomen: BS+, Soft, Nontender Extremities:? Warm well perfused, no edema ,euvolemic Neuro:? Alert and awake. Objective Data Active Medications Albuterol/Ipratropium (Albuterol/Iprat 2.5/0.5mg 3 Ml Ampul.Neb) 3 ml INHALE RQID [facility] Last Admin: 11/01/21 15:24 Dose: 3 ml Documented by: RG Carvedilol (Carvedilol 3.125 Mg Tablet) 3.125 mg PO BID [facility]; Protocol Last Admin: 11/01/21 08:06 Dose: 3.125 mg Documented by: ADRIAN Dextrose (Dextrose 50 % 25 Gm/50 Ml Syringe) 25 gm IVPUSH Q15M PRN; Protocol PRN Reason: per Hypoglycemia Standing Ord. Folic Acid (Folic Acid 1 Mg Tablet) 1 mg PO DAILY [facility] Last Admin: 11/01/21 08:06 Dose: 1 mg Documented by: ADRIAN Glucose (Glucose Gel 15 Gm Gel..Gram.) 15 gm PO Q15M PRN; Protocol PRN Reason: per Hypoglycemia Standing Ord. Heparin Sodium (Porcine) (Heparin Sodium,Porcine 5,000 Unit/Ml Vial) 5,000 unit SUBCUT Q8H [facility] Last Admin: 11/01/21 14:16 Dose: 5,000 unit Documented by: EDGAR Albumin Human (Kedbumin 25 %) 100 mls @ 100 mls/hr IV Q6H [facility] Stop: 11/02/21 02:59 Last Infusion: 11/01/21 15:19 Dose: 0 mls/hr Documented by: EDGAR Sodium Chloride (Ns) 1,000 mls @ 50 mls/hr IVCONT .Q20H [facility] Last Admin: 11/01/21 08:05 Dose: 50 mls/hr Documented by: ADRIAN Insulin Human Lispro (Insulin Lispro 100 Unit/Ml 3 Ml Vial) 0 unit SUBCUT QIDACHS [facility]; Protocol Last Admin: 11/01/21 14:09 Dose: Not Given Documented by: Melatonin (Melatonin 3 Mg Tablet) 6 mg PO BEDTIME PRN PRN Reason: Insomnia Omeprazole (Omeprazole 40 Mg Capsule.Dr) 40 mg PO DAILY@0630 [facility] Last Admin: 11/01/21 06:10 Dose: 40 mg Documented by: CHIRAG Paroxetine HCl (Paroxetine Hcl 10 Mg Tablet) 10 mg PO BEDTIME [facility] Last Admin: 10/31/21 20:16 Dose: 10 mg Documented by: ANTWAN Pharmacy Consult (Consult Rx Perform Med Rec) 1 each MISCELLANE ONCE PRN PRN Reason: Consult order Prazosin HCl (Prazosin Hcl 1 Mg Capsule) 1 mg PO BEDTIME PRN; Protocol PRN Reason: nightmares Senna (Sennosides 8.6 Mg Tablet) 17.2 mg PO BEDTIME PRN PRN Reason: Constipation Senna (Sennosides 8.6 Mg Tablet) 17.2 mg PO BEDTIME [facility] Last Admin: 10/31/21 20:16 Dose: 17.2 mg Documented by: ANTWAN Sodium Chloride (0.9 % Sodium Chloride Flush 3 Ml Syringe) 3 ml IVFLUSH QSHIFT [facility] Last Admin: 11/01/21 15:24 Dose: Not Given Documented by: EDGAR Non-Admin Reason: IV Running Thiamine HCl (Thiamine Hcl 100 Mg Tablet) 100 mg PO DAILY [facility] Last Admin: 11/01/21 08:06 Dose: 100 mg Documented by: ADRIAN Labs CBC & Chem 7: 10/31/21 04:49 11/01/21 04:29 Labs: Laboratory Results - last 24 hr 10/31/21 11/01/21 11/01/21 19:16 04:29 07:36 Anion Gap 13 Estim Creat Clear Calc 40.9 Estimated GFR 34 POC Glucose 127 H 120 H Random Glucose 144 H Calcium 9.6 11/01/21 11:53 Anion Gap Estim Creat Clear Calc Estimated GFR POC Glucose 105 Random Glucose Calcium Assessment and Plan (1) Acute kidney injury: Status: Acute Plan 61-year-old male with a past medical history of hypertension, hyperlipidemia, diabetes, history of alcohol abuse, liver cirrhosis / ascites on diuretics; recent admission to the hospital for acute hypoxic respiratory failure/cardiac a rrest;? history of DARRIAN,? CKD; presented to the hospital today with a chief complaint of abnormal labs. ? noted to have ZANE.? Admitted for further management.? ZANE: Likely prerenal Patient also on Lasix, Aldactone, lisinopril- will hold for now Avoid nephrotoxins Gentle IV fluids- cr slightly improving slowly. Nephrology consult noted CT abdomen showed no acute intra abdominal process Hyperkalemia:? No EKG changes.? Received insulin and dextrose.? Will repeat BMP.? ?history of diabetes:? Insulin sliding scale.? Hold home metformin. History of hypertension: Hold home lisinopril.? Continue home carvedilol.? History of DARRIAN CPAP at bedtime hoping it will improve his respiratory status Liver cirrhosis/? possible diastolic chf compensated Patient report being unaware of diagnosis but he is on medications to treat it Negative hepatitis profile Continue Aldactone Alcohol abuse Continue thiamine and folic acid Type 2 diabetes: fs flactuating 105-154 SSI diabetic diet DVT prophylaxis:? Subcu heparin Need for inpatient: ZANE Quality Stroke Does the patient have a stroke diagnosis?: No VTE Prior VTE?: No VTE Risk Level:: Medical - moderate - high VTE Device Contraindication: Treatment Not Indicated VTE Drug Contraindication: N/A - Med Ordered
--- NOTE | 2021-11-01 17:35 | PM.PNNEP ---
Subjective Subjective Date of Service: 11/01/21 Interval history: Chart Reviewed. Events noted. Physical Exam Vital Signs: Vital Signs: Last Vital Signs Temp 97.5 F 11/01/21 14:33 Pulse 47 L 11/01/21 15:24 Resp 20 11/01/21 15:24 BP 130/95 H 11/01/21 14:33 Pulse Ox 97 11/01/21 14:33 Oxygen Flow Rate 1 10/30/21 11:53 BMI result Body Mass Index 35.2 Const: General: cooperative and no acute distress Orientation/consciousness: patient oriented x3 HEENT: Head: Yes normocephalic Neck: Neck: Yes no JVD Resp: Auscultation: clear to auscultation bilaterally Cardio: Jugular venous distension: no JVD Rate: regular rate Rhythm: regular rhythm Heart sounds: S1 normal heart sound present and S2 normal heart sound present GI: Auscultation: normal bowel sounds Neuro: General: patient oriented x3 Extrem: General: Yes no clubbing, cyanosis or edema Objective Data Labs CBC & Chem 7: 10/31/21 04:49 11/01/21 04:29 Labs: Laboratory Results - last 24 hr 10/31/21 11/01/21 11/01/21 19:16 04:29 07:36 Sodium 142 Potassium 5.1 Chloride 113 H Carbon Dioxide 21 L Anion Gap 13 BUN 42 H Creatinine 2.00 H Estim Creat Clear Calc 40.9 Estimated GFR 34 POC Glucose 127 H 120 H Random Glucose 144 H Calcium 9.6 11/01/21 11:53 Sodium Potassium Chloride Carbon Dioxide Anion Gap BUN Creatinine Estim Creat Clear Calc Estimated GFR POC Glucose 105 Random Glucose Calcium Procedures Date of Service Date of Service: 11/01/21 Assessment & Plan Assessment and plan (1) Acute kidney injury: Status: Acute Assessment and Plan: 61-year-old male with a past medical history of hypertension, hyperlipidemia, diabetes, history of alcohol abuse, liver cirrhosis / ascites on diuretics; recent admission to the hospital for acute hypoxic respiratory failure/cardiac arrest;? history of DARRIAN,? CKD; presented to the hospital for abnormal labs. Patient reports that he had routine visit with his PCP and had labs done and was called in to go to the ER given elevated creatinine on his labs. #) ZANE: ZANE due to pre-renal etiology and low flow state from Hepatorenal physiology agree with albumin to defend intravascular space. S/P Gentle ivf's with NS. Would hold off on additional IVF's no need for diuretics at this time Hold acei/aldactone. Midodrine to maintain MAP > 65 no indication for octreotide. Lokelma 10 Gm prn K>5.0 S-Cr improving (2) Acute hyperkalemia: Status: Acute Time Spent With Patient Time: Total time spent is greater than 50% in coordination of care (as documented) at patient's floor/unit and/or counseling patient: Progress Note: Quality Stroke Does the patient have a stroke diagnosis?: No
[2021-11-01 18:11] LABS: Glucose, Whole Blood 109 mg/dL (60-115)
[2021-11-01] MEDS: PARoxetine HCL 10 MG TABLET PO (20:31)
[2021-11-01] MEDS: Sennosides 8.6 MG TABLET 17.2 MG PO (20:31)
[2021-11-01] MEDS: Melatonin 3 MG TABLET 6 MG PO (20:32)
[2021-11-01 20:35] LABS: Glucose, Whole Blood 125 mg/dL (60-115)
--- NOTE | 2021-11-01 23:50 | PC.NURSE ---
Assumed care of pt Pt medicated per AUG Pt tolerated well Pt resting on stretcher NAD Will continue to monitor
[2021-11-02] VITALS (11 sets, daily range): BP systolic 128–170; BP diastolic 58–106; PULSE 46–86; RESP 16–25; TEMP 36.2–36.6; O2SAT 93–100
[2021-11-02] MEDS: Albumin Human 25 % 100 ML IV (02:37)
[2021-11-02] MEDS: Omeprazole 40 MG CAPSULE.DR PO (05:59)
[2021-11-02] MEDS: Heparin Sodium,Porcine 5,000 UNIT/ML VIAL 5000 UNIT SUBCUT ×3 (05:59→22:41)
[2021-11-02 07:16] LABS: Glucose, Whole Blood 96 mg/dL (60-115)
[2021-11-02 07:47] LABS: Glucose, Whole Blood 90 mg/dL (60-115)
[2021-11-02] MEDS: Folic Acid 1 MG TABLET PO (08:20)
[2021-11-02] MEDS: Thiamine HCL 100 MG TABLET PO (08:20)
[2021-11-02] MEDS: Albuterol/Iprat 2.5/0.5MG 3 ML AMPUL.NEB INHALE ×4 (08:25→19:01)
--- NOTE | 2021-11-02 09:13 | HO.PM.IMPN ---
Subjective Subjective Date of Service: 11/08/21 Interval History: zane Review of Systems Encouraged for hydration, denies any chest pain or shortness of breath or abdominal pain or fever or chills or nausea or vomiting Physical Exam Vital Signs: Vital Signs: Last Vital Signs Temp 97.9 F 11/02/21 08:18 Pulse 57 11/02/21 08:26 Resp 20 11/02/21 08:26 BP 157/80 H 11/02/21 08:18 Pulse Ox 97 11/02/21 08:18 Oxygen Flow Rate 1 10/30/21 11:53 BMI result Body Mass Index 35.2 Gen: aox3,no acute distress HEENT:? NCAT,? Moist mucosa. Pulmonary:? fair air entry, no rales or wheezing CVS:? Normal S1-S2 Abdomen: BS+, Soft, Nontender Extremities:? Warm well perfused, no edema ,euvolemic Neuro:? Alert and awake. Objective Data Active Medications Albuterol/Ipratropium (Albuterol/Iprat 2.5/0.5mg 3 Ml Ampul.Neb) 3 ml INHALE RQID [facility] Last Admin: 11/02/21 08:25 Dose: 3 ml Documented by: RG Carvedilol (Carvedilol 3.125 Mg Tablet) 3.125 mg PO BID [facility]; Protocol Last Admin: 11/02/21 08:20 Dose: Not Given Documented by: LUC Non-Admin Reason: Decreased Heart Rate Dextrose (Dextrose 50 % 25 Gm/50 Ml Syringe) 25 gm IVPUSH Q15M PRN; Protocol PRN Reason: per Hypoglycemia Standing Ord. Folic Acid (Folic Acid 1 Mg Tablet) 1 mg PO DAILY [facility] Last Admin: 11/02/21 08:20 Dose: 1 mg Documented by: LUC Glucose (Glucose Gel 15 Gm Gel..Gram.) 15 gm PO Q15M PRN; Protocol PRN Reason: per Hypoglycemia Standing Ord. Heparin Sodium (Porcine) (Heparin Sodium,Porcine 5,000 Unit/Ml Vial) 5,000 unit SUBCUT Q8H [facility] Last Admin: 11/02/21 05:59 Dose: 5,000 unit Documented by: ANTWAN Insulin Human Lispro (Insulin Lispro 100 Unit/Ml 3 Ml Vial) 0 unit SUBCUT QIDACHS [facility]; Protocol Last Admin: 11/02/21 07:13 Dose: Not Given Documented by: LUC Non-Admin Reason: No Insulin Coverage Melatonin (Melatonin 3 Mg Tablet) 6 mg PO BEDTIME PRN PRN Reason: Insomnia Last Admin: 11/01/21 20:32 Dose: 6 mg Documented by: ANTWAN Omeprazole (Omeprazole 40 Mg Capsule.Dr) 40 mg PO DAILY@0630 [facility] Last Admin: 11/02/21 05:59 Dose: 40 mg Documented by: ANTWAN Paroxetine HCl (Paroxetine Hcl 10 Mg Tablet) 10 mg PO BEDTIME [facility] Last Admin: 11/01/21 20:31 Dose: 10 mg Documented by: ANTWAN Pharmacy Consult (Consult Rx Perform Med Rec) 1 each MISCELLANE ONCE PRN PRN Reason: Consult order Prazosin HCl (Prazosin Hcl 1 Mg Capsule) 1 mg PO BEDTIME PRN; Protocol PRN Reason: nightmares Senna (Sennosides 8.6 Mg Tablet) 17.2 mg PO BEDTIME PRN PRN Reason: Constipation Senna (Sennosides 8.6 Mg Tablet) 17.2 mg PO BEDTIME [facility] Last Admin: 11/01/21 20:31 Dose: 17.2 mg Documented by: ANTWAN Sodium Chloride (0.9 % Sodium Chloride Flush 3 Ml Syringe) 3 ml IVFLUSH QSHIFT [facility] Last Admin: 11/02/21 07:14 Dose: Not Given Documented by: LUC Non-Admin Reason: IV Running Thiamine HCl (Thiamine Hcl 100 Mg Tablet) 100 mg PO DAILY [facility] Last Admin: 11/02/21 08:20 Dose: 100 mg Documented by: LUC Labs CBC & Chem 7: 10/31/21 04:49 11/03/21 08:06 Labs: Laboratory Results - last 24 hr 10/30/21 10/30/21 10/31/21 12:04 19:11 04:49 Creatinine 4.34 H* 4.01 H* 3.04 H POC Glucose 11/01/21 11/01/21 11/01/21 04:29 11:53 18:03 Creatinine 2.00 H POC Glucose 105 109 11/01/21 11/02/21 11/02/21 20:12 07:11 07:42 Creatinine POC Glucose 125 H 96 90 Assessment and Plan (1) Acute kidney injury: Status: Acute Plan 61-year-old male with a past medical history of hypertension, hyperlipidemia, diabetes, history of alcohol abuse, liver cirrhosis / ascites on diuretics; recent admission to the hospital for acute hypoxic respiratory failure/cardiac arrest;? history of DARRIAN,? CKD; presented to the hospital today with a chief complaint of abnormal labs. ? noted to have ZANE.? Admitted for further management.? ZANE: Likely prerenal Patient also on Lasix, Aldactone, lisinopril- will hold for now Avoid nephrotoxins Gentle IV fluids- cr slightly improving slowly. Nephrology consult noted CT abdomen showed no acute intra abdominal process Hyperkalemia:? No EKG changes.? Received insulin and dextrose.? improved. ?history of diabetes:?fs running in 100;s Insulin sliding scale avoid coverage below 200 mg/dl, Hold home metformin. History of hypertension: Hold home lisinopril.? Continue home carvedilol.? History of DARRIAN CPAP at bedtime hoping it will improve his respiratory status Liver cirrhosis/? possible diastolic chf compensated Patient report being unaware of diagnosis but he is on medications to treat it Negative hepatitis profile Continue Aldactone Alcohol abuse Continue thiamine and folic acid Intermittent bradycardia ,had second-degree heart block(last admission)- hold coreg ,moniter may need cardio eval if persistent DVT prophylaxis:? Subcu heparin Need for inpatient:? ZANE, Quality Stroke Does the patient have a stroke diagnosis?: No VTE Prior VTE?: No VTE Risk Level:: Medical - moderate - high VTE Device Contraindication: Treatment Not Indicated VTE Drug Contraindication: N/A - Med Ordered
[2021-11-02 09:51] LABS: Anion Gap 14 (12-20); Blood Urea Nitrogen 28 mg/dL (9-16); Calcium 9.4 mg/dL (8.4-10.2); Carbon Dioxide 19 mmol/L (22-29); Chloride 113 mmol/L (96-108); Creatinine Clr Calc Pharmacy 46.2; Estimated Glomerular Filt Rate 40; Glucose Random 151 mg/dL (60-115); Sodium 141 mmol/L (135-145)
[2021-11-02] MEDS: Lactated Ringers 1,000 ML 80 ML IVCONT ×2 (10:25→21:48)
[2021-11-02 12:26] LABS: Glucose, Whole Blood 157 mg/dL (60-115)
[2021-11-02] MEDS: Insulin Lispro 100 UNIT/ML 3 ML VIAL SUBCUT (12:26)
--- NOTE | 2021-11-02 15:33 | PM.PNNEP ---
Subjective Subjective Date of Service: 11/02/21 Interval history: Seen and examined, events noted Physical Exam Vital Signs: Vital Signs: Last Vital Signs Temp 97.9 F 11/02/21 08:18 Pulse 48 L 11/02/21 15:16 Resp 24 H 11/02/21 15:16 BP 128/106 H 11/02/21 12:28 Pulse Ox 96 11/02/21 12:28 Oxygen Flow Rate 1 10/30/21 11:53 BMI result Body Mass Index 35.2 BS bilat RRR abd: quews ascites edema Const: General: cooperative, comfortable and no acute distress Orientation/consciousness: patient oriented x3 HEENT: Head: Yes normal to inspection, Yes normocephalic and Yes atraumatic Neck: Neck: Yes no JVD Resp: Effort & Inspection: normal respiratory effort Auscultation: clear to auscultation bilaterally Cardio: Jugular venous distension: no JVD Rate: regular rate Rhythm: regular rhythm Heart sounds: S1 normal heart sound present and S2 normal heart sound present GI: Auscultation: normal bowel sounds Neuro: General: patient oriented x3 Extrem: General: Yes no clubbing, cyanosis or edema Objective Data Labs CBC & Chem 7: 10/31/21 04:49 11/02/21 09:31 Labs: Laboratory Results - last 24 hr 11/01/21 11/01/21 11/02/21 18:03 20:12 07:11 Sodium Potassium Chloride Carbon Dioxide Anion Gap BUN Creatinine Estim Creat Clear Calc Estimated GFR POC Glucose 109 125 H 96 Random Glucose Calcium 11/02/21 11/02/21 11/02/21 07:42 09:31 12:23 Sodium 141 Potassium 5.0 Chloride 113 H Carbon Dioxide 19 L Anion Gap 14 BUN 28 H Creatinine 1.77 H Estim Creat Clear Calc 46.2 Estimated GFR 40 POC Glucose 90 157 H Random Glucose 151 H Calcium 9.4 Procedures Date of Service Date of Service: 11/02/21 Assessment & Plan Assessment and plan (1) Acute kidney injury: Status: Acute Assessment and Plan: 61-year-old male with a past medical history of hypertension, hyperlipidemia, diabetes, history of alcohol abuse, liver cirrhosis / ascites on diuretics; recent admission to the hospital for acute hypoxic respiratory failure/cardiac arrest;? history of DARRIAN,? CKD; presented to the hospital for abnormal labs. Patient reports that he had routine visit with his PCP and had labs done and was called in to go to the ER given elevated creatinine on his labs. 1. Recurrent epsidoes of ZANE: c/w renal hypoperfsuion and intolerance ot RASi ( lisinopril) given rapid decr in SCr past 24 hrs 2. CKD3: d/t recurrent ZANE and liver cirrhoiiss physioloy and ques DN 3. Cirrhosis 4. DM REC: avoid RASi, avoid metformin, hydralazine 10-25 bid for BP cpntrol as needed Ok to d/c home from renal standpint with lose outpt f/u but low HR may need to be evaluated before d/c (2) Acute hyperkalemia: Status: Acute Time Spent With Patient Time: Total time spent is greater than 50% in coordination of care (as documented) at patient's floor/unit and/or counseling patient: Progress Note: Quality Stroke Does the patient have a stroke diagnosis?: No
--- NOTE | 2021-11-02 16:15 | MHC.CM.PN ---
UPDATES SENT TO [facility]. NO PLAN FOR DC TODAY. NEEDS CARDIO CONSULT
[2021-11-02 17:05] LABS: Glucose, Whole Blood 122 mg/dL (60-115)
[2021-11-02 19:51] LABS: Glucose, Whole Blood 153 mg/dL (60-115)
[2021-11-02] MEDS: PARoxetine HCL 10 MG TABLET PO (20:03)
[2021-11-02] MEDS: Melatonin 3 MG TABLET 6 MG PO (20:04)
[2021-11-02] MEDS: hydrALAZINE HCl 10 MG TABLET PO (21:48)
[2021-11-03 04:00] VITALS: BP 177/83; PULSE 53; RESP 18; TEMP 37.1; O2SAT 94
[2021-11-03] MEDS: Omeprazole 40 MG CAPSULE.DR PO (05:51)
[2021-11-03] MEDS: Heparin Sodium,Porcine 5,000 UNIT/ML VIAL 5000 UNIT SUBCUT (05:51)
[2021-11-03 07:22] LABS: Glucose, Whole Blood 97 mg/dL (60-115)
[2021-11-03] MEDS: Albuterol/Iprat 2.5/0.5MG 3 ML AMPUL.NEB INHALE ×2 (07:34→11:10)
[2021-11-03 07:39] VITALS: PULSE 74; RESP 18; O2SAT 93
[2021-11-03 08:00] VITALS: BP 155/75; PULSE 57; RESP 20; TEMP 36.6; O2SAT 92
[2021-11-03] MEDS: Albumin Human 25 % 100 ML IV (08:31)
[2021-11-03] MEDS: 0.9 % Sodium Chloride Flush 3 ML SYRINGE IVFLUSH (08:35)
[2021-11-03] MEDS: hydrALAZINE HCl 10 MG TABLET PO (08:35)
[2021-11-03] MEDS: Thiamine HCL 100 MG TABLET PO (08:35)
[2021-11-03] MEDS: Folic Acid 1 MG TABLET PO (08:36)
[2021-11-03 08:50] LABS: Anion Gap 14 (12-20); Blood Urea Nitrogen 22 mg/dL (9-16); Calcium 10.1 mg/dL (8.4-10.2); Carbon Dioxide 21 mmol/L (22-29); Chloride 112 mmol/L (96-108); Creatinine Clr Calc Pharmacy 58.4; Estimated Glomerular Filt Rate 52; Glucose Random 109 mg/dL (60-115); Potassium 4.7 mmol/L (3.3-5.1); Sodium 142 mmol/L (135-145)
[2021-11-03 11:12] VITALS: PULSE 47; RESP 20; O2SAT 92
[2021-11-03 11:23] LABS: Glucose, Whole Blood 108 mg/dL (60-115)
--- NOTE | 2021-11-03 11:30 | P.DS_ITS ---
DS: Providers Provider Date of Service: 11/03/21 Date of admission: 10/30/21 22:50 Primary care physician: Nelly Bach MD Consults: 10/30/21 22:50 Consult to Nephrology Routine Consulting Provider: Emre Silva Reason for consultation: ZANE 11/02/21 16:45 Consult to Cardiology Routine Consulting Provider: [facility] [place] Cardiovascular Services Reason for consultation: hx of Av block ,bradycardia Has provider been notified: No DS: Diagnosis Discharge Diagnosis (1) Acute kidney injury: Status: Acute (2) Acute hyperkalemia: Status: Acute DS: Summary Hospital Course Hospital Course: Chief Complaint:? abnormal labs ?61-year-old male with a past medical history of hypertension, hyperlipidemia, diabetes, history of alcohol abuse, liver cirrhosis / ascites on diuretics; recent admission to the hospital for acute hypoxic respiratory failure/cardiac arrest;? history of DARRIAN,? CKD; presented to the hospital today with a chief complaint of abnormal labs.? Patient reports that he had routine visit with his PCP and had labs done and was called in to go to the ER given elevated creatinine on his labs.? Patient denies any chest pain palpitations abdominal pain nausea vomiting or diarrhea.? Denies any urinary symptoms.? Reports he has been complaint with his home medications.? Review of all other systems is negative except mentioned above ER course: Per ER team patient's exam was benign; on labs noted to have elevated creatinine of 4.3 from his baseline of 1.0.? Also noted to have? elevated potassium levels; no EKG changes; given insulin and dextrose; CT abdomen showed no acute findings; admitted to the hospital for further management Hospital course 61-year-old male with a past medical history of hypertension, hyperlipidemia, diabetes, history of alcohol abuse, liver cirrhosis / ascites on diuretics; recent admission to the hospital for acute hypoxic respiratory failure/cardiac arrest;? history of DARRIAN,? CKD; presented to the hospital with a chief complaint of abnormal labs. ? noted to have ZANE.? Admitted for further management.? ZANE with hyperkalemia likely pre renal since patient was on Lasix, Aldactone and lisinopril all medications were held patient was treated with IV fluids, renal function and potassium normalized, CT abdomen showed no acute process subsequently patient seen by Dr. Miranda from Nephrology he recommend to discontinue lisinopril and lower dose of Lasix to 20 mg and Aldactone 25 mg, to high blood pressure patient has been started on hydralazine 25 mg twice daily and has been recommended to follow-up with primary care physician and Dr. Miranda in next 1-2 weeks. history of diabetes: Metformin has been discontinued due to acute renal failure, blood sugars are stable recommend to follow diabetic diet History of hypertension: Continue hydralazine 25 mg b.i.d., low-dose Aldactone on Lasix, Coreg discontinued due to bradycardia. History of DARRIAN continue CPAP Liver cirrhosis/? possible diastolic chf no acute exacerbation noted continue low-dose Aldactone and Lasix Alcohol abuse Continue thiamine and folic acid strongly recommended to abstain from alcohol Time Spent with Patient Time attestation: Total time spent providing and/or coordinating discharge services: Discharge coordination time: Greater than 30 minutes Quality: Safe Use of Opioids Does Pt have an Active Cancer Diagnosis on the Problem List?: No Quality: Stroke Does the patient have a stroke diagnosis?: No Physical Exam Vital Signs: Vital Signs: Last Vital Signs Temp 97.8 F 11/03/21 08:00 Pulse 47 L 11/03/21 11:12 Resp 20 11/03/21 11:12 BP 155/75 H 11/03/21 08:00 Pulse Ox 92 11/03/21 08:00 Oxygen Flow Rate 1 10/30/21 11:53 BMI result Body Mass Index 35.2 Const: Other: Gen: Awake alert x3 no distress Neck no JVD Pulmonary:? Clear to auscultation, no wheeze no crackles CVS:? Normal S1-S2 Abdomen: BS+, Soft, Nontender Extremities:? no edema Neuro:? Nonfocal Psych appropriate affect DS: Data Data Completed and Pending Completed studies during hospitalization [Text1]: Procedures Detoxification Services for Substance Abuse Treatment (09/28/21) Insertion of Endotracheal Airway into Trachea, Via Natural or Artificial Opening (09/28/21) Insertion of Infusion Device into Superior Vena Cava, Percutaneous Approach (09/28/21) Insertion of Monitoring Device into Upper Artery, Percutaneous Approach (09/28/21) Introduction of Vasopressor into Peripheral Vein, Percutaneous Approach (09/28/21) Monitoring of Arterial Pressure, Peripheral, Percutaneous Approach (09/28/21) Monitoring of Arterial Pulse, Peripheral, Percutaneous Approach (09/28/21) Performance of Cardiac Output, Single, Manual (09/28/21) Respiratory Ventilation, Greater than 96 Consecutive Hours (09/28/21) Ultrasonography of Superior Vena Cava, Guidance (09/28/21) Labs on day of discharge: Laboratory Results - last 24 hr 11/02/21 11/02/21 11/02/21 12:23 17:02 19:47 Sodium Potassium Chloride Carbon Dioxide Anion Gap BUN Creatinine Estim Creat Clear Calc Estimated GFR POC Glucose 157 H 122 H 153 H Random Glucose Calcium 11/03/21 11/03/21 11/03/21 07:15 08:06 11:09 Sodium 142 Potassium 4.7 Chloride 112 H Carbon Dioxide 21 L Anion Gap 14 BUN 22 H Creatinine 1.40 Estim Creat Clear Calc 58.4 Estimated GFR 52 POC Glucose 97 108 Random Glucose 109 Calcium 10.1 D Discharge Plan Discharge Patient Disposition: Home, Self-Care Discharge Diagnosis: Acute kidney injury Hyperkalemia Referrals: Nelly Bach MD [Primary Care Provider] - 1 Week Discharge Medications: New hydralazine 25 mg Tablet 25 mg PO BID Qty: 60 0RF Protocol: Hold for SBP< HOLD for SBP < : 90 Continued simethicone [Gas Relief (simethicone)] 180 mg capsule 180 mg PO BID PRN (Reason: abdominal distention) Qty: 60 3RF sennosides [Natural Senna Laxative] 8.6 mg tablet 17.2 mg PO BEDTIME Qty: 180 2RF prazosin 1 mg capsule 1 cap PO BEDTIME PRN (Reason: nightmares) 0RF omeprazole 40 mg capsule,delayed release(DR/EC) 40 mg PO DAILY@0630 0RF paroxetine HCl 10 mg tablet 1 tab PO BEDTIME 0RF furosemide 20 mg tablet 1 tab PO DAILY 0RF spironolactone 50 mg tablet 50 mg PO DAILY 0RF folic acid 1 mg tablet 1 mg PO DAILY 0RF thiamine HCl (vitamin B1) 100 mg tablet 100 mg PO DAILY 0RF Citrucel 500 mg tablet 500 mg PO DAILY Qty: 30 2RF Rx Instructions: take it with full glass of water Combivent Respimat 20-100 mcg/actuation mist 1 puff inhalation QID 30 Days Qty: 4 11RF Rx Instructions: space evenly during waking hours Changed spironolactone 50 mg tablet 25 mg PO DAILY Qty: 0 0RF Discontinued carvedilol 3.125 mg tablet 1 tab PO BID 0RF metformin 850 mg tablet 850 mg PO BIDWM 0RF lisinopril 20 mg tablet 20 mg PO DAILY 0RF Discharge Orders: Discharge Order (Routine); Ordered 11/03/21 Ordered By: Abbie Zhao Diet: diabetic diet and low fat, low cholesterol Activity on Discharge: As tolerated Stand Alone Forms: Patient Portal Discharge page Care Plan Goals: Acute renal failure and hyperkalemia resolved stop using Zestril and metformin dose of Aldactone reduced to 25 mg daily, take Lasix 20 mg daily and take hydralazine 25 mg twice daily outpatient follow-up with Nephrology Dr. Miranda Health Concerns: Follow diabetic diet, abstain from alcohol Plan of Treatment: Follow-up with primary care physician and Dr. Miranda from Nephrology in next 1-2 weeks Assessment: As per discharge summary
[2021-11-03 11:57] VITALS: BP 150/80; PULSE 93; RESP 20; TEMP 36.6; O2SAT 94
--- NOTE | 2021-11-03 12:18 | MHC.CM.PN ---
PT TO DC HOME TODAY WITH RESUMPTION OF [facility] NOTIFIED VIA [facility] TO TRANSPORT
--- NOTE | 2021-11-03 12:19 | PM.CNCAR ---
History of Present Illness History of Present Illness Date of Service: 11/03/21 Requesting physician: Abbie Zhao Chief complaint: Bradycardia Narrative: 61-year-old gentleman who we have been asked to review for bradycardia. He has history of hypertension, hyperlipidemia, diabetes, alcohol abuse, liver cirrhosis and recent admission in September when he presented with hypoxic respiratory failure and had cardiac arrest. I reviewed the chart as best as I can and it appears he had ROMAN/asystole as his rhythm. When he had raw ski had wide complex rhythm at that time and was thought to have left bundle-branch block. At some stage there was also concern about 2-1 block noticed. The heart block was documented in the setting of cardiac arrest. There is no EKGs to bleed document that currently. He has been on carvedilol and now got admitted with electrolyte abnormalities. He had acute kidney injury and hyperkalemia. He has been improving. He is denying any shortness of breath, dizziness, lightheadedness or syncope in the past. Overall doing well. Telemetry reviewed. [facility] Past Medical History Medical History Chronic kidney disease CKD (chronic kidney disease) stage 3, GFR 30-59 ml/min Congestive heart failure Diabetes History of opiate therapy Liver cirrhosis Morbid obesity due to excess calories DARRIAN (obstructive sleep apnea) Family History Family History Mother Cancer Diabetes Social History Social History Household Members: Spouse Housing: Apartment Do you presently have visiting nurse or other home services: Yes Patient Tobacco Use Status: Never used Tobacco e-Cigarette/Vaping Use: Never Used service: No Current occupational status: disabled Meds Allergies Allergy/AdvReac Type Severity Reaction Status Date / Time aspirin [ASPIRIN] Allergy Unknown RASH Verified 10/30/21 11:53 ibuprofen Allergy Unknown nausea and Verified 10/30/21 11:53 vomiting Active Medications: Current Medications Albuterol/Ipratropium (Albuterol/Iprat 2.5/0.5mg 3 Ml Ampul.Neb) 3 ml INHALE RQID THAI Last Admin: 11/03/21 11:10 Dose: 3 ml Documented by: Carvedilol (Carvedilol 3.125 Mg Tablet) 3.125 mg PO BID [facility]; Protocol Last Admin: 11/02/21 08:20 Dose: Not Given Documented by: Dextrose (Dextrose 50 % 25 Gm/50 Ml Syringe) 25 gm IVPUSH Q15M PRN; Protocol PRN Reason: per Hypoglycemia Standing Ord. Folic Acid (Folic Acid 1 Mg Tablet) 1 mg PO DAILY [facility] Last Admin: 11/03/21 08:36 Dose: 1 mg Documented by: Glucose (Glucose Gel 15 Gm Gel..Gram.) 15 gm PO Q15M PRN; Protocol PRN Reason: per Hypoglycemia Standing Ord. Heparin Sodium (Porcine) (Heparin Sodium,Porcine 5,000 Unit/Ml Vial) 5,000 unit SUBCUT Q8H [facility] Last Admin: 11/03/21 05:51 Dose: 5,000 unit Documented by: Hydralazine HCl (Hydralazine Hcl 25 Mg Tablet) 25 mg PO BID [facility]; Protocol Insulin Human Lispro (Insulin Lispro 100 Unit/Ml 3 Ml Vial) 0 unit SUBCUT QIDACHS [facility]; Protocol Last Admin: 11/03/21 12:00 Dose: Not Given Documented by: Melatonin (Melatonin 3 Mg Tablet) 6 mg PO BEDTIME PRN PRN Reason: Insomnia Last Admin: 11/02/21 20:04 Dose: 6 mg Documented by: Omeprazole (Omeprazole 40 Mg Capsule.Dr) 40 mg PO DAILY@0630 [facility] Last Admin: 11/03/21 05:51 Dose: 40 mg Documented by: Paroxetine HCl (Paroxetine Hcl 10 Mg Tablet) 10 mg PO BEDTIME [facility] Last Admin: 11/02/21 20:03 Dose: 10 mg Documented by: Pharmacy Consult (Consult Rx Perform Med Rec) 1 each MISCELLANE ONCE PRN PRN Reason: Consult order Prazosin HCl (Prazosin Hcl 1 Mg Capsule) 1 mg PO BEDTIME PRN; Protocol PRN Reason: nightmares Senna (Sennosides 8.6 Mg Tablet) 17.2 mg PO BEDTIME PRN PRN Reason: Constipation Senna (Sennosides 8.6 Mg Tablet) 17.2 mg PO BEDTIME [facility] Last Admin: 11/02/21 20:04 Dose: Not Given Documented by: Sodium Chloride (0.9 % Sodium Chloride Flush 3 Ml Syringe) 3 ml IVFLUSH QSHIFT [facility] Last Admin: 11/03/21 08:35 Dose: 3 ml Documented by: Thiamine HCl (Thiamine Hcl 100 Mg Tablet) 100 mg PO DAILY [facility] Last Admin: 11/03/21 08:35 Dose: 100 mg Documented by: Home Medications Medication Instructions Recorded Confirmed Last Taken Type folic acid 1 mg tablet 1 mg PO DAILY 06/18/21 10/30/21 10/30/21 History thiamine HCl (vitamin B1) 100 mg 100 mg PO DAILY 06/18/21 10/30/21 10/30/21 History tablet omeprazole 40 mg capsule,delayed 40 mg PO DAILY@0630 09/28/21 10/30/21 10/30/21 History release prazosin 1 mg capsule 1 cap PO BEDTIME PRN 09/28/21 10/30/21 10/29/21 History furosemide 20 mg tablet 1 tab PO DAILY 10/30/21 10/30/21 10/30/21 History paroxetine HCl 10 mg tablet 1 tab PO BEDTIME 10/30/21 10/30/21 10/29/21 History Physical Exam Vital Signs: Vital Signs: Last Vital Signs Temp 97.8 F 11/03/21 11:57 Pulse 93 11/03/21 11:57 Resp 20 11/03/21 11:57 BP 150/80 H 11/03/21 11:57 Pulse Ox 94 11/03/21 11:57 Oxygen Flow Rate 1 10/30/21 11:53 BMI result Body Mass Index 35.2 GENERAL APPEARANCE: in no acute distress, pleasant. Obese NECK: no carotid bruit, no obvious jugular venous distention. SKIN: no suspicious lesions, warm and dry. HEART: no murmurs, regular rate and rhythm. Bradycardic. LUNGS: clear to auscultation bilaterally. ABDOMEN: soft, nontender. EXTREMITIES: no edema. PERIPHERAL PULSES: equal. NEUROLOGIC: No gross deficits, AAO X 3 Objective Labs and Meds Result diagrams: 10/31/21 04:49 11/03/21 08:06 Lab results: Laboratory Results - last 24 hr 11/02/21 11/02/21 11/02/21 12:23 17:02 19:47 Sodium Potassium Chloride Carbon Dioxide Anion Gap BUN Creatinine Estim Creat Clear Calc Estimated GFR POC Glucose 157 H 122 H 153 H Random Glucose Calcium 11/03/21 11/03/21 11/03/21 07:15 08:06 11:09 Sodium 142 Potassium 4.7 Chloride 112 H Carbon Dioxide 21 L Anion Gap 14 BUN 22 H Creatinine 1.40 Estim Creat Clear Calc 58.4 Estimated GFR 52 POC Glucose 97 108 Random Glucose 109 Calcium 10.1 D Assessment and Plan (1) Sinus bradycardia: Status: Acute Plan 61-year-old gentleman who is presenting with acute kidney injury and hyperkalemia. He had cardiac arrest in September 2021 when he had asystole/pulseless electrical activity. After ROSC he had some bizarre wide complex rhythm and there was some question raised that does he have 2-1 block at that time. I have not seen any EKGs showing AV block on him other than first-degree AV block. His heart rate is mostly in 50s. He is obese and likely has sleep apnea and high vagal tone when he is sleeping and I would not be surprised if he has more bradycardic when he is sleeping. He has no symptoms to suggest symptomatic bradycardia. If there are concerns about using carvedilol on him then I think an alternative medication can be used for blood pressure control. Does not need any further workup for bradycardia currently as he has asymptomatic sinus bradycardia. Thank you for allowing me to participate in the care of your patient. Please feel free to contact me if you have any questions. Procedures Date of Service Date of Service: 11/03/21
== END 2021-11-03 12:43 | disposition home or self-care (01) | DRG 469 ==
LOC: HO.ED 20:57 → HO.EDOVER 22:55 → HO.S3 11-02 08:58 → HO.EDOVER 11-02 10:41 → HO.IMC 11-02 19:08
PROVIDERS: Internal Medicine; Admitting Provider Hospitalist; Emergency Provider Emergency Medicine; PCP Internal Medicine; Visit Provider Hospitalist
DX: N17.9 Acute kidney failure, unspecified (principal); K76.7 Hepatorenal syndrome; K74.60 Unspecified cirrhosis of liver; I13.0 Hypertensive heart and chronic kidney disease with heart failure and stage 1 through stage 4 chronic kidney disease, or unspecified chronic kidney disease; I50.32 Chronic diastolic (congestive) heart failure; E87.5 Hyperkalemia; E78.5 Hyperlipidemia, unspecified; E66.01 Morbid (severe) obesity due to excess calories; F10.10 Alcohol abuse, uncomplicated; G47.33 Obstructive sleep apnea (adult) (pediatric); R00.1 Bradycardia, unspecified; N18.30 Chronic kidney disease, stage 3 unspecified; Z20.822 Contact with and (suspected) exposure to COVID-19; Z86.74 Personal history of sudden cardiac arrest; Z68.31 Body mass index [BMI] 31.0-31.9, adult; Z88.6 Allergy status to analgesic agent; Z79.84 Long term (current) use of oral hypoglycemic drugs; Z79.899 Other long term (current) drug therapy
CPT/HCPCS: 36415; 74176; 80048; 80053; 81003; 82947; 85025; 87635; 93005; 94640; 96365; 96366; 96375; 99285; 99291; J0610; P9047

== ENCOUNTER → 2021-11-27 14:15 | Outpatient (REF) | payer MEDICAID, SELFPAY | LOC: HO.SL 14:15 | PROVIDERS: PCP Internal Medicine; Visit Provider Hospitalist | DX: G47.33 Obstructive sleep apnea (adult) (pediatric) (principal); R06.00 Dyspnea, unspecified; R06.83 Snoring; R40.0 Somnolence | CPT/HCPCS: 95806 ==

== ENCOUNTER 2021-12-06 14:29 | Emergency (ER) | payer MEDICAID, SELFPAY ==
--- NOTE | ~2021-12-06 | CT_ITS ---
EXAMINATION: CT HEAD WITHOUT CONTRAST CT CERVICAL SPINE WITHOUT CONTRAST CLINICAL INFORMATION: Trauma COMPARISON: CT head dated 10/01/2021 TECHNIQUE: Multidetector CT imaging of the head and cervical spine was performed without the use of intravenous contrast. Multiplanar reformats are reviewed. This CT examination was performed using dose optimization techniques as appropriate, variously including the following: *Automated exposure control *Adjustment of mA and/or kV according to patient size (this includes techniques or standardized protocols for targeted exams where dose is matched to indication/reason for exam; i.e. extremities or head) *Use of iterative reconstruction technique DLP: 1353 mGy-cm. FINDINGS: There is no evidence of acute intracranial hemorrhage or territorial infarction. No abnormal mass effect or midline shift is seen. Menjivar to white matter differentiation is well preserved. No extra-axial fluid collections are identified. The ventricles are normal in size. There is no abnormal attenuation within the brain parenchyma. Subgaleal hematoma, scalp laceration swelling present along the anterior central frontal calvarium, soft tissue swelling extending over the nasal bridge and left periorbital region. There is a small left parietal area of scalp swelling. Chronic nasal bone fractures with leftward deviation of the nasal bridge. Calvarium intact. Paranasal sinuses and mastoid air cells are clear. Atlantooccipital alignment is maintained. The vertebral bodies and posterior elements align normally. No acute fracture or subluxation. Vertebral body heights are maintained. Endplate osteophytes present C5-C6 and C6-C7. The paraspinal soft tissues are unremarkable. Retropharyngeal course of the bilateral common carotid arteries. The imaged lung apices are clear CT/CT cervical spine wo con IMPRESSION: No acute intracranial pathology. No cervical spine fracture or malalignment.
[2021-12-06 14:37] VITALS: BP 173/78; PULSE 84; RESP 24; TEMP 36.6; O2SAT 95; BMI 35.3
[2021-12-06] MEDS: Lidocaine HCl 1 % MPF 5 ML VIAL INFILTRATI (15:38)
--- NOTE | 2021-12-06 15:56 | PC.NURSE ---
at bedside for suture
--- NOTE | 2021-12-06 16:05 | ED.FALL ---
HPI - Fall General Chief Complaint: Fall Stated Complaint: fell in the bathroom hit head on pipes Time Seen by Provider: 12/06/21 15:26 Source: patient Limitations: no limitations History of Present Illness HPI Narrative: THIS IS 61 YEARS OLD MALE WITH HISTORY OF COPD WAS O2 DEPENDENT, HISTORY OF OBESITY PRESENTED TO EMERGENCY ROOM A DAY HE FELL IN THE BATHROOM TAKING A SHOWER , THE FALL WAS CLEARLY MECHANICAL FALL, HE SUSTAINED A LACERATION OF THE FOREHEAD GOING THROUGH THE LEFT ORBIT LEFT EYELID MD complaint: fall Onset (ago): hour(s) (1) Fall witnessed: yes, by family Place fall occurred: home Loss of consciousness: none Related Data Home Medications Medication Instructions Recorded Confirmed folic acid 1 mg tablet 1 mg PO DAILY 06/18/21 10/30/21 thiamine HCl (vitamin B1) 100 mg 100 mg PO DAILY 06/18/21 10/30/21 tablet omeprazole 40 mg capsule,delayed 40 mg PO DAILY@0630 09/28/21 10/30/21 release prazosin 1 mg capsule 1 cap PO BEDTIME PRN nightmares 09/28/21 10/30/21 furosemide 20 mg tablet 1 tab PO DAILY 10/30/21 10/30/21 paroxetine HCl 10 mg tablet 1 tab PO BEDTIME 10/30/21 10/30/21 Previous Rx's Medication Instructions Recorded methylcellulose (laxative) 500 mg 500 mg PO DAILY #30 tabs 07/24/21 tablet (Citrucel) ipratropium 20 mcg-albuterol 100 1 puff inhalation QID 30 days #4 08/17/21 mcg/actuation mist for inhalation grams (Combivent Respimat) sennosides 8.6 mg tablet (Natural 17.2 mg PO BEDTIME constipation 10/12/21 Senna Laxative) #180 tabs simethicone 180 mg capsule (Gas 180 mg PO BID PRN abdominal 10/12/21 Relief (simethicone)) distention #60 caps hydralazine 25 mg tablet 25 mg PO BID #60 tabs 11/03/21 spironolactone 50 mg tablet 25 mg PO DAILY #0 tabs 11/03/21 Allergies Allergy/AdvReac Type Severity Reaction Status Date / Time aspirin [ASPIRIN] Allergy Unknown RASH Verified 10/30/21 11:53 ibuprofen Allergy Unknown nausea and Verified 05/24/22 11:53 vomiting Review of Systems Review of Systems: Yes all other systems are reviewed and are negative Constitutional: Constitutional: Reports no additional constitutional complaints ENT: Reports system reviewed and no additional complaints, except as documented Respiratory: Respiratory: Reports no additional respiratory complaints Musculoskeletal: Musculoskeletal: Reports no additional musculoskeletal complaints Psychiatric: Psychiatric: Reports no additional psychiatric complaints [facility] Past Medical History Medical History Chronic kidney disease CKD (chronic kidney disease) stage 3, GFR 30-59 ml/min Congestive heart failure Diabetes History of opiate therapy Liver cirrhosis Morbid obesity due to excess calories DARRIAN (obstructive sleep apnea) Family History Family History Mother Cancer Diabetes Social History Social History Household Members: Spouse Housing: Apartment Do you presently have visiting nurse or other home services: Yes Patient Tobacco Use Status: Never used Tobacco e-Cigarette/Vaping Use: Never Used Advance Directives: No Advance Directives Information Provided: Yes service: No Current occupational status: disabled Physical Exam Vital Signs: Vital Signs: Last Vital Signs Temp 97.9 F 12/06/21 14:37 Pulse 84 12/06/21 14:37 Resp 24 H 12/06/21 14:37 BP 173/78 H 12/06/21 14:37 Pulse Ox 95 12/06/21 14:37 O2 Del Method 12/06/21 14:37 BMI result Body Mass Index 35.3 Const: General: cooperative, comfortable and no acute distress Nutritional Appearance: average body habitus and well nourished Orientation/consciousness: patient oriented x3 HEENT: Other: EXAMINATION SHOWS A T HAS A COMPLEX LACERATION OF THE LEFT FOR THE GOING THROUGH THE LEFT ORBIT AND LEFT EYELID THE LENGTH IS ABOUT 13 CM, HAS A FULL OCULAR MOVEMENT THE EYE IS NOT INVOLVED THE. Mouth: Normal oral and palatal mucosa present Throat: Yes posterior oropharynx normal Eyes: Other: FULL EXTRAOCULAR MOVEMENT ABOVE A LARGE LACERATION ON THE FOREHEAD General: appearance normal, both eyes and all related structures Visual Young: normal visual young by confrontation Alignment and Position: alignment normal Sclerae: sclerae normal EOM: EOMs intact bilaterally Neck: Neck: Yes normal visual inspection Thyroid: Thyroid normal Carotids: normal carotid upstroke Chest: Chest palpation & inspection: normal inspection of the chest Resp: Effort & Inspection: normal respiratory effort Auscultation: clear to auscultation bilaterally Cardio: Jugular venous distension: no JVD Rate: regular rate Rhythm: regular rhythm GI: Inspection: Yes normal to inspection Palpation (GI): Soft to palpation, not firm, nontender and no guarding Auscultation: normal bowel sounds Skin: General skin exam: no rashes or lesions noted, elasticity normal and turgor normal Rashes: no rashes Wounds: no wounds Neuro: General: patient oriented x3 Course Reevaluation(s) Reevaluation #1: THE WOUND WAS REPAIRED BY ME, I DISCUSSED ALSO THE CASE WITH OPHTHALMOLOGY GIVEN THE INVOLVEMENT OF THE ORBIT OF THE LEFT EYELID HE WILL SEE THE PATIENT FOR FOLLOW-UP Procedures Laceration Laceration 1: Site: other (FOREHEAD AND LEFT ORBIT 13 CM) Description: flap, irregular and clean Depth: simple, single layer Local Anesthetic: lidocaine 1% Pre-repair: wound explored and irrigated extensively Size (cm): 5-0 Number of sutures: 13 Technique: simple, interrupted Technique: simple, interrupted Tendon layer closed with: nylon Technique: simple interrupted MDM - Fall Imaging Data CT scan - head: Radiologist's impression: There is no evidence of acute intracranial hemorrhage or territorial infarction. No abnormal mass effect or midline shift is seen. Menjivar to white matter differentiation is well preserved. No extra-axial fluid collections are identified. The ventricles are normal in size. There is no abnormal attenuation within the brain parenchyma. Subgaleal hematoma, scalp laceration swelling present along the anterior central frontal calvarium, soft tissue swelling extending over the nasal bridge and left periorbital region. There is a small left parietal area of scalp swelling. Chronic nasal bone fractures with leftward deviation of the nasal bridge. Calvarium intact. Paranasal sinuses and mastoid air cells are clear. Atlantooccipital alignment is maintained. The vertebral bodies and posterior elements align normally. No acute fracture or subluxation. Vertebral body heights are maintained. Endplate osteophytes present C5-C6 and C6-C7. The paraspinal soft tissues are unremarkable. Retropharyngeal course of the bilateral common carotid arteries. The imaged lung apices are clear ? CT/CT head/brain wo con IMPRESSION: No acute intracranial pathology. No cervical spine fracture or malalignment. Dictated By: Torsten Lechuga MD Signed By: <Electronically signed by Torsten Lechuga MD in OV> 12/06/21 1702 Discharge Plan Discharge Clinical Impression: Laceration of left orbit, Head injury Patient Disposition: Home, Self-Care Instructions: Laceration (ED), Head Injury (ED) Additional Instructions: Follow-up with the eye doctor Dr Rader in 7 Days Prescriptions: No Action simethicone [Gas Relief (simethicone)] 180 mg capsule 180 mg PO BID PRN (Reason: abdominal distention) Qty: 60 3RF sennosides [Natural Senna Laxative] 8.6 mg tablet 17.2 mg PO BEDTIME Qty: 180 2RF prazosin 1 mg capsule 1 cap PO BEDTIME PRN (Reason: nightmares) omeprazole 40 mg capsule,delayed release(DR/EC) 40 mg PO DAILY@0630 paroxetine HCl 10 mg tablet 1 tab PO BEDTIME furosemide 20 mg tablet 1 tab PO DAILY spironolactone 50 mg tablet 25 mg PO DAILY Qty: 0 0RF hydralazine 25 mg Tablet 25 mg PO BID Qty: 60 0RF Protocol: Hold for SBP< HOLD for SBP < : 90 folic acid 1 mg tablet 1 mg PO DAILY thiamine HCl (vitamin B1) 100 mg tablet 100 mg PO DAILY Citrucel 500 mg tablet 500 mg PO DAILY Qty: 30 2RF Rx Instructions: take it with full glass of water Combivent Respimat 20-100 mcg/actuation mist 1 puff inhalation QID 30 Days Qty: 4 11RF Rx Instructions: space evenly during waking hours Referrals: Levi Hollis [Physician] - (follow up in 7 Days) Interventions: ED Discharge Assessment Last Done: 12/06/21 17:21 Discharge Date/Time: 12/06/21 17:25
== END 2021-12-06 17:25 | disposition home or self-care (01) ==
PROVIDERS: Emergency Provider Emergency Medicine; PCP Internal Medicine
DX: S09.90XA Unspecified injury of head, initial encounter (principal); S01.112A Laceration without foreign body of left eyelid and periocular area, initial encounter; S01.81XA Laceration without foreign body of other part of head, initial encounter; W18.2XXA Fall in (into) shower or empty bathtub, initial encounter; Y93.E1 Activity, personal bathing and showering; Y92.012 Bathroom of single-family (private) house as the place of occurrence of the external cause; Y99.9 Unspecified external cause status; I13.0 Hypertensive heart and chronic kidney disease with heart failure and stage 1 through stage 4 chronic kidney disease, or unspecified chronic kidney disease; E11.22 Type 2 diabetes mellitus with diabetic chronic kidney disease; N18.30 Chronic kidney disease, stage 3 unspecified; I50.9 Heart failure, unspecified
CPT/HCPCS: 12055; 70450; 72125; 99284

== ENCOUNTER → 2021-12-12 09:15 | Outpatient (BNVA) | payer MEDICAID, SELFPAY | PROVIDERS: PCP Internal Medicine; Referring Provider Internal Medicine; Visit Provider Internal Medicine | DX: I47.2 Ventricular tachycardia (principal); R00.1 Bradycardia, unspecified; I10 Essential (primary) hypertension; Z86.74 Personal history of sudden cardiac arrest | CPT/HCPCS: 99212 ==

== ENCOUNTER 2021-12-16 10:36 | Emergency (ER) | payer MEDICAID, SELFPAY ==
[2021-12-16 10:44] VITALS: BP 157/74; PULSE 71; RESP 16; TEMP 36.4; O2SAT 96; BMI 35.6
--- NOTE | 2021-12-16 11:39 | ED.GENADULT ---
HPI - General Adult General Chief complaint: General Medical Stated complaint: SUTURE REMOVAL Time Seen by Provider: 12/16/21 11:01 Source: patient Mode of arrival: ambulatory Limitations: no limitations History of Present Illness HPI narrative: 61-year-old male presents to ED for left forehead through eyebrow suture removal due to trauma. Patient has sutures placed here in the 06 of December. Patient states since then asymptomatic. Patient denies any pus discharge, foul odor, redness, headache, dizziness, nausea, vomiting, or any other concerning complaints. Related Data Home Medications Medication Instructions Recorded Confirmed folic acid 1 mg tablet 1 mg PO DAILY 06/18/21 12/12/21 thiamine HCl (vitamin B1) 100 mg 100 mg PO DAILY 06/18/21 12/12/21 tablet omeprazole 40 mg capsule,delayed 40 mg PO DAILY@0630 09/28/21 12/12/21 release blood sugar diagnostic (FreeStyle #10 ea 12/12/21 12/12/21 Lite Strips) blood-glucose meter (FreeStyle #1 ea 12/12/21 12/12/21 Eldridge Lite) carvedilol 3.125 mg tablet 3.125 mg PO BID 12/12/21 12/12/21 furosemide 20 mg tablet 20 mg PO DAILY 12/12/21 12/12/21 lancets 33 gauge (TRUEplus Lancets) #100 ea 12/12/21 12/12/21 lisinopril 20 mg tablet 20 mg PO DAILY 12/12/21 12/12/21 paroxetine HCl 10 mg tablet 10 mg PO BEDTIME 12/12/21 12/12/21 prazosin 1 mg capsule 1 mg PO BEDTIME PRN nightmares 12/12/21 12/12/21 sodium polystyrene sulfonate 15 60 ml PO DAILY 12/12/21 12/12/21 gram-sorbitol 20 gram/60 mL oral susp (SPS (with sorbitol)) Previous Rx's Medication Instructions Recorded methylcellulose (laxative) 500 mg 500 mg PO DAILY #30 tabs 07/24/21 tablet (Citrucel) ipratropium 20 mcg-albuterol 100 1 puff inhalation QID 30 days #4 08/17/21 mcg/actuation mist for inhalation grams (Combivent Respimat) sennosides 8.6 mg tablet (Natural 17.2 mg PO BEDTIME constipation 10/12/21 Senna Laxative) #180 tabs simethicone 180 mg capsule (Gas 180 mg PO BID PRN abdominal 10/12/21 Relief (simethicone)) distention #60 caps hydralazine 25 mg tablet 25 mg PO BID #60 tabs 11/03/21 spironolactone 50 mg tablet 25 mg PO DAILY #0 tabs 11/03/21 Allergies Allergy/AdvReac Type Severity Reaction Status Date / Time aspirin [ASPIRIN] Allergy Unknown RASH Verified 12/12/21 09:18 ibuprofen Allergy Unknown nausea and Verified 12/12/21 09:18 vomiting Review of Systems Review of Systems: 11:41 Yes all other systems are reviewed and are negative [facility] Past Medical History Medical History Chronic kidney disease CKD (chronic kidney disease) stage 3, GFR 30-59 ml/min Congestive heart failure Diabetes History of opiate therapy Liver cirrhosis Morbid obesity due to excess calories DARRIAN (obstructive sleep apnea) Family History Family History Mother Cancer Diabetes Social History Social History Household Members: Spouse Housing: Apartment Do you presently have visiting nurse or other home services: Yes Patient Tobacco Use Status: Never used Tobacco e-Cigarette/Vaping Use: Never Used Advance Directives: No Advance Directives Information Provided: Yes service: No Current occupational status: disabled Physical Exam ED Vital Signs: Vital Signs - 24 hr 12/16/21 10:44 Temperature 97.5 F Pulse Rate 71 Respiratory Rate 16 Blood Pressure 157/74 H Pulse Oximetry 96 Oxygen Delivery Method Room Air BMI result Body Mass Index 35.6 Const General: cooperative, healthy appearing, comfortable, no acute distress, well developed, alert, awake and Physically active Orientation/consciousness: oriented to place, oriented to time and patient oriented x3 HENMT Head: Yes normal to inspection, Yes No palpable skull fracture present, Yes normocephalic and No atraumatic Head images: 1. Sutures healing. Negative for any erythema, pus discharge, foul odor, or redness. Eyes General: appearance normal, both eyes and all related structures Neck Neck: Yes normal visual inspection, Yes full ROM, Yes no lymphadenopathy, Yes no meningeal signs, Yes trachea midline, Yes supple, No anterior neck swelling and No tender Chest Chest palpation & inspection: normal inspection of the chest and normal palpation of entire chest wall Resp Effort & Inspection: normal respiratory effort and able to speak in complete sentences Auscultation: clear to auscultation bilaterally Cardio Jugular venous distension: no JVD Heart sounds: S1 normal heart sound present and S2 normal heart sound present GI Inspection: Yes normal to inspection and No abdominal wall ecchymosis Palpation (GI): Soft to palpation, not firm, nontender, no guarding and not rigid General: No CVA tenderness and Yes no CVA tenderness Back/Spine/Pelvis Back: no CVA tenderness, No CVA tenderness and No back tenderness Skin General skin exam: no rashes or lesions noted and elasticity normal Neuro General: oriented to place, oriented to time, patient oriented x3, gait normal, tone normal, moves all extremities, Normal light touch and pain sensation, no meningeal signs, no focal motor deficits, CN's II-XI intact bilaterally, normal sensation to monofilament and deep tendon reflexes 2+ bilaterally Cranial nerves: Yes CN's II-XII intact bilaterally Cognition (Neuro): normal cognition Extrem General: Yes normal to inspection and Yes full ROM Psych Appearance: grossly normal, well kempt and not disheveled Course Course Course Narrative: Sutures healing. Reevaluation(s) Reevaluation #1: Wound cleaning with Betadine and alcohol swab. Sutures removed. Patient is safe for discharge. Time: 11:44 Medical Decision Making MDM Narrative Medical decision making narrative: Suture removal Discharge Plan Discharge Clinical Impression: Visit for suture removal Patient Disposition: Home, Self-Care Instructions: Stitches Removal (ED) Additional Instructions: Return to ED for any headache, nausea, vomiting, pus discharge, foul odor, redness, or any other concerning symptoms. Please follow-up with primary care provider Prescriptions: No Action simethicone [Gas Relief (simethicone)] 180 mg capsule 180 mg PO BID PRN (Reason: abdominal distention) Qty: 60 3RF sennosides [Natural Senna Laxative] 8.6 mg tablet 17.2 mg PO BEDTIME Qty: 180 2RF omeprazole 40 mg capsule,delayed release(DR/EC) 40 mg PO DAILY@0630 prazosin 1 mg capsule 1 mg PO BEDTIME PRN (Reason: nightmares) spironolactone 50 mg tablet 25 mg PO DAILY Qty: 0 0RF hydralazine 25 mg Tablet 25 mg PO BID Qty: 60 0RF Protocol: Hold for SBP< HOLD for SBP < : 90 furosemide 20 mg tablet 20 mg PO DAILY paroxetine HCl 10 mg tablet 10 mg PO BEDTIME folic acid 1 mg tablet 1 mg PO DAILY thiamine HCl (vitamin B1) 100 mg tablet 100 mg PO DAILY Citrucel 500 mg tablet 500 mg PO DAILY Qty: 30 2RF Rx Instructions: take it with full glass of water Combivent Respimat 20-100 mcg/actuation mist 1 puff inhalation QID 30 Days Qty: 4 11RF Rx Instructions: space evenly during waking hours lisinopril 20 mg tablet 20 mg PO DAILY carvedilol 3.125 mg tablet 3.125 mg PO BID SPS (with sorbitol) 15-20 gram/60 mL suspension 60 ml PO DAILY (DME) blood-glucose meter [FreeStyle Eldridge Lite] Kit See Rx Instructions Not Applicable BID Qty: 1 Rx Instructions: As directed (DME) FreeStyle Lite Strips Strip See Rx Instructions Not Applicable BID Qty: 10 Rx Instructions: As directed (DME) lancets [TRUEplus Lancets] 33 gauge misc See Rx Instructions Not Applicable BID Qty: 100 Rx Instructions: As directed Interventions: ED Discharge Assessment Last Done: 12/16/21 11:51 Discharge Date/Time: 12/16/21 11:51 Print Language: [place] Islander
== END 2021-12-16 11:51 | disposition home or self-care (01) ==
PROVIDERS: Emergency Provider Emergency Medicine; PCP Internal Medicine
DX: Z48.02 Encounter for removal of sutures (principal); S01.81XD Laceration without foreign body of other part of head, subsequent encounter; X58.XXXD Exposure to other specified factors, subsequent encounter
CPT/HCPCS: 99283

== ENCOUNTER 2021-12-20 07:55 | Outpatient (REF) | payer MEDICAID, SELFPAY ==
--- NOTE | ~2021-12-20 | XR_ITS ---
EXAMINATION: XR CHEST CLINICAL INFORMATION: G47.33 - Obstructive sleep apnea; shortness of breath. COMPARISON: Chest radiographs 10/15/2021, 10/11/2021, CT abdomen 10/30/2021, CT abdomen 10/01/2021. TECHNIQUE: 2 views of the chest were obtained. FINDINGS: Cardiopericardial silhouette is within normal size. The vascularity is normal. There is no lobar or segmental airspace consolidation or groundglass opacity. No hyperinflation. Vascularity is normal. The costophrenic sulci are clear. There is smooth pseudo- pleural thickening along the lateral aspect right and left hemithorax consistent with benign extrapleural areolar tissue as also noted on CT chest 2021. The hilar and mediastinal contours and bony structures are unremarkable. XR/XR chest 2V IMPRESSION: No hyperinflation, infiltrate, or effusion.
--- NOTE | 2021-12-20 09:58 | PFT_ITS ---
Forced vital capacity 54%, FEV1 63%, FEV1/FVC ratio 116, [id number] 135%, and MVV is 67%. Post bronchodilator therapy there is no significant change. Total lung capacity 56%, and residual volume 61%. Diffusion capacity 54% CONCLUSION: Moderately severe restrictive pulmonary disorder. No evidence of obstructive airway disorder. Clinical correlation recommended. MD DRU Kerr/DANIELLA / [id number]
== END 2021-12-20 07:56 | disposition home or self-care (01) ==
LOC: HO.RESP 07:55
PROVIDERS: PCP Internal Medicine; Visit Provider Hospitalist
DX: G47.33 Obstructive sleep apnea (adult) (pediatric) (principal); R06.00 Dyspnea, unspecified
CPT/HCPCS: 71046; 94060; 94727; 94729

== ENCOUNTER → 2021-12-24 10:17 | Outpatient (BNVA) | payer MEDICAID, SELFPAY | PROVIDERS: PCP Internal Medicine; Visit Provider Hospitalist | DX: R06.00 Dyspnea, unspecified (principal); G47.33 Obstructive sleep apnea (adult) (pediatric); J96.11 Chronic respiratory failure with hypoxia | CPT/HCPCS: 94618; 99212 ==

== ENCOUNTER → 2022-02-06 08:27 | Outpatient (REF) | payer MEDICAID, SELFPAY ==
--- NOTE | ~2022-02-06 | NM_ITS ---
Lexiscan Myocardial perfusion study Indication: Cardiac arrest Technique: The patient was brought in for a Lexiscan perfusion study on 02/07/2022 and was injected 0.4 mg of Lexiscan intravenously. Within a minute of this injection 35 mCi of sestamibi was given intravenously. Images were obtained using the SPECT gamma camera interlaced with the gating device. Images were obtained in supine position. Resting perfusion study was performed on 02/06/2022. Patient was administered 35 mCi of sestamibi intravenously at rest. Images were then obtained in supine position. Total DLP 156mGy-cm. Images were processed with the software and compared side to side in short axis, horizontal long axis and vertical long axis views. Findings: Raw acquisition reviewed. Arms by the patient's side. The stress perfusion study showed diminished tracer uptake in the mid anterior septum. Seen in uncorrected as well as CT attenuation corrected images. There is also diminished tracer uptake in the mid inferolateral wall. However, that seems to improve with CT attenuation correction. The gated study shows normal LV systolic function with calculated LVEF of 65%. LV cavity is normal in size. The gated study shows diminished mid anteroseptal wall thickening. Resting study shows reduced tracer uptake in mid to distal lateral wall as well as distal part of anterolateral wall. With CT attenuation correction, there is overall reduced tracer uptake along most of the anterior wall, septum and lateral wall that seems rather technical in nature. Gating at rest reveals normal wall motion with ejection fraction at 46%. The findings are consistent with no clear reversible defects.. Fixed perfusion defect in the mid anteroseptal wall, probably artifactual. Cannot exclude small infarct in that area. Reversible inferolateral defect is likely from diaphragmatic attenuation artifact. NM/NM cardiolite stress test Impression: 1. Myocardial perfusion imaging study shows no clear evidence of ischemia. Likely fixed mid anteroseptal defect could be artifactual or could be from a small infarct. Overall study quality is suboptimal and hence unable to differentiate. 2. Gated LVEF is 62% during stress and 46% during rest. Correlate with echocardiogram. 3. Transient ischemic dilatation not present. EKG component of the test reported separately.
--- NOTE | 2022-02-06 08:29 | CA_ITS ---
Acquisition Time: 2022-02-07 08:49:57 Total Exercise Time: 00:02:00 Test Indications: VTACH, BRADYCARDIA Medications: SEE CHART Protocol: LEXISCAN Max HR: 093 BPM 57% of Pred: 161 BPM Max BP: 144/078 mmHG Max Work Load: 1.0 METS Pharmacological stress test with Lexiscan injection, while sitting and kicking his legs, with report of 7/10 left chest discomfort, without arrythmia, with normotensive response to injection, with nondiagnostic EKG for ischemia. In recovery he continued to have the chest discomfort and was treated with Aminophylline 75mg IVP to reverse Lexiscan with resolution of symptom. Nuclear images pending. Test reviewed with Dr Sampson Referred By: Camilo Cano Overread By: ИРИНА TAYLOR
== END ==
LOC: HO.CARD 08:27
PROVIDERS: PCP Internal Medicine; Visit Provider Internal Medicine
DX: I46.9 Cardiac arrest, cause unspecified (principal)
CPT/HCPCS: 78452; 93017; A9500; J0280; J2785

== ENCOUNTER 2022-02-13 08:56 | Outpatient (RCR) | payer MEDICAID, SELFPAY | END 2022-05-06 13:48 | disposition home or self-care (01) | LOC: HO.PT 08:56 | PROVIDERS: PCP Internal Medicine; Visit Provider Internal Medicine | DX: M54.50 Low back pain, unspecified (principal) ==

== ENCOUNTER → 2022-02-20 13:48 | Outpatient (BNVA) | payer MEDICAID, SELFPAY | PROVIDERS: PCP Internal Medicine; Referring Provider Internal Medicine; Visit Provider Nurse Practitioner Family | DX: R42 Dizziness and giddiness (principal); W19.XXXA Unspecified fall, initial encounter; I46.9 Cardiac arrest, cause unspecified; I47.2 Ventricular tachycardia; R93.1 Abnormal findings on diagnostic imaging of heart and coronary circulation; I10 Essential (primary) hypertension | CPT/HCPCS: 99212 ==

== ENCOUNTER → 2022-02-25 07:12 | Outpatient (REF) | payer MEDICAID, SELFPAY ==
--- NOTE | 2022-02-25 07:15 | HM_ITS ---
Conclusion: 1. Patient was monitored for total period of 4 days. 2. Baseline was normal sinus rhythm with average heart rate of 62 beats per minute 3. Frequent sinus bradycardia noted with heart rate below 60 beats per minute 35% of the time 4. No significant pauses noted 5. Rare PACs noted 6. No patient reported events MTDD
== END ==
LOC: HO.CARD 07:12
PROVIDERS: PCP Internal Medicine; Visit Provider Nurse Practitioner Family
DX: I46.9 Cardiac arrest, cause unspecified (principal); R42 Dizziness and giddiness
CPT/HCPCS: 93242

== ENCOUNTER 2022-03-06 11:00 | Outpatient (RCR) | payer MEDICAID, SELFPAY ==
--- NOTE | 2022-02-19 13:58 | MHC.OT.EP ---
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 Hx of ETOH use/sober 1-2 mo . Today he presents with significant bilateral hand intention tremors on the right dominant hand < on the left . Right hand tremor was improved with wearing a 2 lb wrist cuff to be able to use a spoon to scope dry beans and bring to his mouth with out dropping/spilling. With the wrist cuff on he is able to reach, grasp and place stacking cones, unable to sweet pickled fruit maker small objects. Difficulty donning and doffing clothes also complicated by tight fitting clothes. Pt will benefit from OT for ther ex and ADL training for inc ease with daily activities Frequency and Duration: The patient will be seen 2x wk x 4 wks Short Term Goals: Demo indep with upper body ther ex Report use of wrist cuffs with ADL Demo indep in dressing and self feeding with AD as needed Correction Goals: Report inc ease and inc independence with daily activities with AD as needed Able to demonstrate indep with HEP and simulated ADL with modifications as needed Demo awareness of AD available for safety and inc ease with light home making and leisure activities Treatment Plan: Therapeutic Exercise Therapeutic Activity Home Exercise Program Splinting Patient Education ADL Training Electronically Signed By: Claudia Cummings OT CHT CHT Please Sign and return to therapist. Thank you once again for your referral.
--- NOTE | 2022-03-29 15:56 | MHC.OT.DC ---
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 pt walking without cane with no LOB noted Electronically Signed By: Claudia Cumminsg OT CHT CHT Reviewed/agree with student documentation: N/A Therapist: Please Sign and return to therapist, thank you for your referral.
== END 2022-03-29 15:56 | disposition home or self-care (01) ==
LOC: HO.OT 11:00
PROVIDERS: PCP Internal Medicine; Visit Provider Internal Medicine
DX: R25.1 Tremor, unspecified (principal)
CPT/HCPCS: 97110; 97140; 97165; 97530; 97535

== ENCOUNTER 2022-04-11 14:48 | Emergency (ER) | payer MEDICAID, SELFPAY ==
--- NOTE | ~2022-04-11 | CT_ITS ---
EXAMINATION: NONCONTRAST HEAD CT NONCONTRAST CERVICAL SPINE CT INDICATION INFORMATION: Fall COMPARISON: CT abdomen C-spine 12/06/2021 TECHNIQUE: Separate noncontrast CT examinations of the head and cervical spine were performed. Coronal and sagittal images were created for each examination at the technologist workstation. This CT examination was performed using dose optimization techniques as appropriate, variously including the following: *Automated exposure control *Adjustment of mA and/or kV according to patient size (this includes techniques or standardized protocols for targeted exams where dose is matched to indication/reason for exam; i.e. extremities or head) *Use of iterative reconstruction technique DLP: 1717 mGy-cm FINDINGS: HEAD: No intra or extra-axial fluid collection, hemorrhage, or mass. No ventriculomegaly. No midline shift or herniation. Basal cisterns are patent. Menjivar-white matter differentiation is maintained. No territorial encephalomalacia. Proportional prominence of the ventricles and sulcal spaces is consistent with mild volume loss. There is minimal nonspecific periventricular white matter hypoattenuation. Bilateral basal ganglia calcifications noted. No calvarial fracture or soft tissue abnormality. The mastoid air cells and visualized portions of the paranasal sinuses are well aerated. CERVICAL SPINE: Alignment: Straightening of the normal cervical lordosis. No subluxation. Vertebra: No acute fracture. No prevertebral soft tissue swelling. Degenerative disc disease: Moderate cervical spondylosis at C5-C6 and C6-C7 with disc height loss, endplate sclerosis and proliferative change. Uncovertebral spurring at C6 and C7 with left-sided predominance. Other findings: No cervical lymphadenopathy. Visualized major salivary glands and thyroid gland are unremarkable. Visualized lung apices are clear. CT/CT cervical spine wo IV con IMPRESSION: 1. No intracranial hemorrhage or calvarial fracture. 2. No traumatic subluxation or acute cervical spine fracture.
--- NOTE | ~2022-04-11 | CT_ITS ---
EXAMINATION: CT CHEST WITHOUT CONTRAST CT ABDOMEN AND PELVIS WITHOUT CONTRAST CLINICAL INFORMATION: Fall COMPARISON: 10/01/2021 TECHNIQUE: Multidetector volumetric imaging was performed through the chest, abdomen and pelvis without contrast. Sagittal and coronal reformatted images were obtained on the technologist's workstation. Axial MIP volume rendering provided. This CT examination was performed using dose optimization techniques as appropriate, variously including the following: *Automated exposure control *Adjustment of mA and/or kV according to patient size (this includes techniques or standardized protocols for targeted exams where dose is matched to indication/reason for exam; i.e. extremities or head) *Use of iterative reconstruction technique DLP: 1150 mGy-cm. FINDINGS: CHEST: Lungs: The central airways are patent. Scattered bronchial filling defects distally. No consolidation. Minimal atelectasis. No pneumothorax. No pleural effusion. Mediastinum: The heart is enlarged. There is no pericardial effusion. Central vascular structures are unremarkable. Prominent lymph nodes are seen. For instance there is a right paratracheal node measuring 1 cm in short axis on series 5 image 18. This is fairly similar to prior.. Coronary Artery Calcification: Present. Chest Wall/Axilla: No lymphadenopathy. No chest wall mass. ABDOMEN/PELVIS: Liver, Gallbladder, Biliary Tree: Normal size of the liver with a nodular Contour. Caudate hypertrophy. No focal liver lesion or biliary ductal dilatation. The gallbladder is unremarkable with no evidence of radiopaque gallstones, gallbladder wall thickening, or pericholecystic inflammatory changes. Pancreas: Unremarkable. Spleen: Unremarkable. Adrenal Glands: Unremarkable. Kidneys and Ureters: The kidneys are normal in size, shape, and attenuation. No hydronephrosis, hydroureter or calculi seen. No perinephric stranding. Bladder: Unremarkable. Gastrointestinal Tract: The stomach is unremarkable. Normal caliber of the small bowel. No obstruction. No colonic wall thickening or inflammation. Normal appendix. No free air or free fluid. Abdominal Wall: No hernia is demonstrated. Lymphovascular Structures: Lymph nodes: Normal. Vascular: Normal caliber aorta with mild atherosclerotic calcifications. Pelvic Viscera: The prostate and seminal vesicles are unremarkable. OSSEOUS STRUCTURES: Vertebral body height and alignment maintained. Small endplate osteophytes present throughout. Mild facet arthropathy of the lumbar spine. The sternum is intact. No acute rib fracture. Intact pelvis. CT/CT abdomen pelvis wo IV con IMPRESSION: 1. No acute traumatic finding of the chest, abdomen, or pelvis. 2. Cirrhotic liver.
--- NOTE | ~2022-04-11 | CT_ITS ---
EXAMINATION: CT ELBOW RIGHT WITHOUT CONTRAST CLINICAL INFORMATION: History of fall and swelling. Possible abscess. COMPARISON: None TECHNIQUE: Multidetector CT imaging examination of the right elbow was performed without intravenous contrast. The axial images and multiplanar reformatted images are reviewed. This CT examination was performed using dose optimization techniques as appropriate, variously including the following: *Automated exposure control. *Adjustment of mA and/or kV according to patient size (this includes techniques or standardized protocols for targeted exams where dose is matched to indication/reason for exam, i.e., extremities or head). *Use of iterative reconstruction technique. DLP: 133 mGy-cm FINDINGS: Alignment is normal at the ulnohumeral and radiocapitellar articulations. No radial head or neck fracture. There is osseous fragmentation of the olecranon in the region of triceps tendon attachment. The overlying skin and subcutaneous tissues are edematous. No discrete, measurable fluid collection in this region, although assessment is partially limited by the noncontrast nature of this test. One of the olecranon bone fragments that measures 0.7 cm in length is displaced proximally by 1 cm. No elbow joint effusion. The muscles of the proximal forearm are unremarkable. The neurovascular structures are grossly normal for a noncontrast examination. There is no abnormal thickening of the ulnar nerve as it courses through the region of the cubital tunnel. CT/CT elbow RT wo IV con IMPRESSION: * No noncontrast imaging evidence of soft tissue abscess at the elbow. No elbow joint effusion. * There is a comminuted, displaced fracture of the olecranon corresponding to the region of the triceps tendon attachment. The soft tissues are edematous.
--- NOTE | 2022-04-11 14:49 | ED.GENADULT ---
HPI - General Adult General Chief complaint: ETOH/Substance Use <ADAN Osman - Last Filed: 04/11/22 18:01> Stated complaint: FALL W/R ELBOW DEFORMITY,ETOH USE <ADAN Osman - Last Filed: 04/11/22 18:01> Time Seen by Provider: 04/11/22 14:49 <ADAN Osman - Last Filed: 04/11/22 18:01> Source: patient, EMS and product coordinator <ADAN Osman - Last Filed: 04/11/22 18:01> Mode of arrival: EMS <ADAN Osman - Last Filed: 04/11/22 18:01> Limitations: language barrier <ADAN Osman Last Filed: 04/11/22 18:> History of Present Illness HPI narrative: Patient is a 61 year old assigned male at with a history of alcoholism, IVDU, HTN, and DM presenting to the emergency department today with right elbow pain. Patient states that he fell 3 days ago onto his right side and injured his right elbow. Patient denies any dizziness, lightheadedness, abdominal pain, nausea, vomiting, fever, chills, blurry vision, double vision, loss of vision, chest pain, difficulty breathing, shortness of breath, back pain, night sweats, pain with urination, increased urinary frequency, increased urinary urgency, blood in his urine or stool, syncope or a near syncopal episode, bowel incontinence, bladder incontinence, bowel retention, bladder retention, or any other complaints at this time. Patient states that he has been drinking today. <ADAN Osman - Last Filed: 04/11/22 18:01> Onset (ago): day(s) (3) <ADAN Osman - Last Filed: 04/11/22 18:01> Location: right and upper extremity <ADAN Osman - Last Filed: 04/11/22 18:01> Radiation: non-radiation <ADAN Osman - Last Filed: 04/11/22 18:01> Severity: moderate <ADAN Osman Last Filed: 04/11/22 18:01> Severity scale (1-10): 4 <ADAN Osman - Last Filed: 04/11/22 18:01> Pain Consistency: constant <ADAN Osman - Last Filed: 04/11/22 18:01> Relieving factors: none <ADAN Osman - Last Filed: 04/11/22 18:01> Exacerbating factors: none <ADAN Osman - Last Filed: 04/11/22 18:01> Associated symptoms: denies other symptoms <ADAN Osman - Last Filed: 04/11/22 18:01> Treatments prior to arrival: none <ADAN Osman - Last Filed: 04/11/22 18:01> Related Data Home medications: Home Medications Medication Instructions Recorded Confirmed folic acid 1 mg tablet 1 mg PO DAILY 06/18/21 04/11/22 thiamine HCl (vitamin B1) 100 mg 100 mg PO DAILY 06/18/21 04/11/22 tablet omeprazole 40 mg capsule,delayed 40 mg PO DAILY@0630 09/28/21 04/11/22 release blood sugar diagnostic (FreeStyle #10 ea 12/12/21 02/20/22 Lite Strips) blood-glucose meter (FreeStyle #1 ea 12/12/21 02/20/22 Sheldon Lite kit) carvedilol 3.125 mg tablet 3.125 mg PO BID 12/12/21 04/11/22 furosemide 20 mg tablet 20 mg PO DAILY 12/12/21 04/11/22 lancets 33 gauge (TRUEplus Lancets) #100 ea 12/12/21 02/20/22 prazosin 1 mg capsule 1 mg PO BEDTIME PRN nightmares 12/12/21 04/11/22 methadone 10 mg/mL oral concentrate 30 mg PO DAILY 02/20/22 02/20/22 empagliflozin 10 mg tablet 1 tab PO QAM 04/11/22 04/11/22 (Jardiance) paroxetine HCl 20 mg tablet 1 tab PO BEDTIME 04/11/22 04/11/22 spironolactone 25 mg tablet 1 tab PO BEDTIME 04/11/22 04/11/22 Previous Rx's Medication Instructions Recorded methylcellulose (laxative) 500 mg 500 mg PO DAILY #30 tabs 07/24/21 tablet (Citrucel) ipratropium 20 mcg-albuterol 100 1 puff inhalation QID 30 days #4 08/17/21 mcg/actuation mist for inhalation grams (Combivent Respimat) sennosides 8.6 mg tablet (Natural 17.2 mg PO BEDTIME constipation 10/12/21 Senna Laxative) #180 tabs simethicone 180 mg capsule (Gas 180 mg PO BID PRN abdominal 10/12/21 Relief (simethicone)) distention #60 caps hydralazine 25 mg tablet 25 mg PO BID #60 tabs 11/03/21 cephalexin 500 mg capsule 500 mg PO Q8H 10 days #30 caps 04/11/22 doxycycline monohydrate 100 mg 100 mg PO BID 10 days #20 caps 04/11/22 capsule <ADAN Osman Last Filed: 04/11/22 18:01> Allergies/adverse reactions: Allergies Allergy/AdvReac Type Severity Reaction Status Date / Time aspirin [ASPIRIN] Allergy Unknown RASH Verified 02/20/22 14:41 ibuprofen Allergy Unknown nausea and Verified 02/20/22 14:41 vomiting <ADAN Osman Last Filed: 04/11/22 18:01> Review of Systems Constitutional: Constitutional: Reports no additional constitutional complaints, Denies chills, Denies fever(s) and Denies night sweats <ADAN Osman Last Filed: 04/11/22 18:01> Eyes: Eyes: Reports no additional eye complaints, Denies blurry vision, Denies change in vision, Denies diplopia, Denies eye discharge, Denies loss of vision and Denies eye pain <ADAN Osman Last Filed: 04/11/22 18:01> ENT: Denies dizziness <ADAN Osman Last Filed: 04/11/22 18:01> Cardiovascular: Cardiovascular: Reports no additional cardiovascular complaints, Denies chest pain, Denies lightheadedness, Denies Loss of Consciousness and Denies dyspnea <ADAN Osman Last Filed: 04/11/22 18:01> Respiratory: Respiratory: Reports no additional respiratory complaints and Denies dyspnea <ADAN Osman Last Filed: 04/11/22 18:01> Gastrointestinal: Gastrointestinal: Reports no additional gastrointestinal complaints, Denies abdominal pain, Denies melena, Denies hematochezia, Denies change in bowel habits and Denies change in stool character <ADAN Osman - Last Filed: 04/11/22 18:01> Genitourinary: Genitourinary: Reports no additional male genitourinary complaints, Denies hematuria, Denies oliguria, Denies difficulty urinating, Denies dysuria, Denies urinary frequency, Denies urinary hesitancy, Denies urinary incontinence and Denies urinary urgency <ADAN Osman - Last Filed: 04/11/22 18:01> Musculoskeletal: Musculoskeletal: Reports no additional musculoskeletal complaints, Denies numbness and Denies tingling <ADAN Osman - Last Filed: 04/11/22 18:01> Comments: right elbow pain <ADAN Osman - Last Filed: 04/11/22 18:01> Neurologic: Denies dizziness, Denies loss of vision, Denies numbness and Denies tingling <ADAN Osman - Last Filed: 04/11/22 18:01> Psychiatric: Psychiatric: Reports no additional psychiatric complaints <ADAN Osman - Last Filed: 04/11/22 18:01> Endocrine: Endocrine: Reports no additional endocrine complaints <ADAN Osman - Last Filed: 04/11/22 18:01> Hematologic/Lymphatic: Hematologic/Lymphatic: Reports no additional hematologic/lymphatic complaints <ADAN Osman - Last Filed: 04/11/22 18:01> Allergic/Immunologic: Allergic/Immunologic: Reports no additional allergic/immunologic complaints <ADAN Osman - Last Filed: 04/11/22 18:01> [facility] Past Medical History Attestation statement: The following information was validated with the patient. <ADAN Osman - Last Filed: 04/11/22 18:01> Source: old records reviewed <ADAN Osman - Last Filed: 04/11/22 18:01> Medical History: Medical History Chronic kidney disease Chronic respiratory failure CKD (chronic kidney disease) stage 3, GFR 30-59 ml/min Congestive heart failure Diabetes History of opiate therapy Liver cirrhosis Morbid obesity due to excess calories DARRIAN (obstructive sleep apnea) <ADAN Osman - Last Filed: 04/11/22 18:01> Family History Family History: Family History Mother Cancer Diabetes <ADAN Osman - Last Filed: 04/11/22 18:01> Social History Social History: Social History Household Members: Spouse Housing: Apartment Do you presently have visiting nurse or other home services: Yes Alcohol intake: current Alcohol intake frequency: 3 or more drinks per day Alcohol type: beer Patient Tobacco Use Status: Never used Tobacco Smoked in Last 30 Days: No e-Cigarette/Vaping Use: Never Used Use of substances other than those prescribed or required for medical reasons: No Substance Use Type: Heroin Advance Directives: No Advance Directives Information Provided: No service: No Current occupational status: disabled <ADAN Osman - Last Filed: 04/11/22 18:01> Physical Exam ED Vital Signs: Vital Signs - 24 hr 04/11/22 14:57 04/11/22 16:42 04/11/22 17:12 Temperature 98.3 F 97.9 F Pulse Rate 72 66 64 Respiratory Rate 16 16 16 Blood Pressure 156/89 H 125/82 119/73 Pulse Oximetry 93 99 98 Oxygen Delivery Method Room Air Nasal Cannula Nasal Cannula Oxygen Flow Rate 2 2 04/11/22 20:00 Temperature 97.4 F Pulse Rate 80 Respiratory Rate 16 Blood Pressure 136/79 Pulse Oximetry 98 Oxygen Delivery Method Room Air Oxygen Flow Rate BMI result Body Mass Index 35.0 <ADAN Osman - Last Filed: 04/11/22 18:01> Vital Signs - 24 hr 04/11/22 14:57 04/11/22 16:42 04/11/22 17:12 Temperature 98.3 F 97.9 F Pulse Rate 72 66 64 Respiratory Rate 16 16 16 Blood Pressure 156/89 H 125/82 119/73 Pulse Oximetry 93 99 98 Oxygen Delivery Method Room Air Nasal Cannula Nasal Cannula Oxygen Flow Rate 2 2 04/11/22 20:00 Temperature 97.4 F Pulse Rate 80 Respiratory Rate 16 Blood Pressure 136/79 Pulse Oximetry 98 Oxygen Delivery Method Room Air Oxygen Flow Rate BMI result Body Mass Index 35.0 <Winter Nugent NP - Last Filed: 04/11/22 22:08> Const General: cooperative, no acute distress, alert and awake <Rosa M Olmedo PA - Last Filed: 04/11/22 18:01> Nutritional Appearance: well nourished <Rosa M Olmedo PA - Last Filed: 04/11/22 18:01> Orientation/consciousness: patient oriented x3 <Rosa M Olmedo PA - Last Filed: 04/11/22 18:01> Limitations: no limitations <Rosa M Olmedo PA - Last Filed: 04/11/22 18:01> HENMT Head: Yes normal to inspection and Yes atraumatic <Rosa M Olmedo PA - Last Filed: 04/11/22 18:01> Ears: hearing grossly normal bilaterally and external ears normal <Rosa M Olmedo PA - Last Filed: 04/11/22 18:01> General nose exam: Normal external nose present, no nasal discharge noted and no epistaxis <ADAN Osman - Last Filed: 04/11/22 18:01> Face and sinus: Yes normal facial exam, No abrasion and No laceration <Rosa M Olmedo PA - Last Filed: 04/11/22 18:01> Mouth: Normal oral and palatal mucosa present, no drooling and no muffled voice <Rosa M Olmedo PA - Last Filed: 04/11/22 18:01> Eyes General: appearance normal, both eyes and all related structures <Rosa M Olmedo PA - Last Filed: 04/11/22 18:01> Periorbital: periorbital findings normal <Rosa M Olmedo PA - Last Filed: 04/11/22 18:01> Eyelids: Yes eyelids normal <Rosa M Olmedo PA - Last Filed: 04/11/22 18:01> Conjunctivae: conjunctivae normal <ADAN Osman - Last Filed: 04/11/22 18:01> Pupils: Equal, round and reactive pupils present <Rosa M Olmedo PA - Last Filed: 04/11/22 18:01> EOM: EOMs intact bilaterally <ADAN Osman - Last Filed: 04/11/22 18:01> Neck Neck: Yes normal visual inspection, Yes full ROM and Yes no lymphadenopathy <ADAN Osman - Last Filed: 04/11/22 18:01> Chest Chest palpation & inspection: normal inspection of the chest <Rosa M OlmedoADAN - Last Filed: 04/11/22 18:01> Resp Effort & Inspection: normal respiratory effort and able to speak in complete sentences <Rosa M Olmedo PA - Last Filed: 04/11/22 18:01> Auscultation: clear to auscultation bilaterally <Rosa M Olmedo PA - Last Filed: 04/11/22 18:01> Cardio Rate: regular rate <Rosa M Olmedo PA - Last Filed: 04/11/22 18:01> Rhythm: regular rhythm <Rosa M OlmedoADAN - Last Filed: 04/11/22 18:01> GI Inspection: Yes normal to inspection <Rosa M OlmedoADAN - Last Filed: 04/11/22 18:01> Neuro General: patient oriented x3 and moves all extremities <Rosa M MartinezADAN barnett - Last Filed: 04/11/22 18:01> Cranial nerves: Yes Equal, round and reactive pupils present <Rosa M Olmedo PA - Last Filed: 04/11/22 18:01> Cognition (Neuro): normal cognition <Rosa M Olmedo PA - Last Filed: 04/11/22 18:01> Motor exam (neuro): 5/5 motor strength present throughout <Rosa M Olmedo PA - Last Filed: 04/11/22 18:01> Sensory Exam: Normal double simultaneous stimulation for sensation <Rosa M MartinezADAN barnett - Last Filed: 04/11/22 18:01> Coordination: [id number] test normal <Rosa M Martinezericka PA - Last Filed: 04/11/22 18:01> Extrem Other: <Rosa M OlmedoADAN - Last Filed: 04/11/22 18:01> General: Yes full ROM and Yes capillary refill normal <Rosa M MartinezADAN barnett - Last Filed: 04/11/22 18:01> Psych Appearance: grossly normal <Rosa M MartinezADAN barnett - Last Filed: 04/11/22 18:01> Mental Status: mental status grossly normal <Rosa Merica MartinezADAN barnett - Last Filed: 04/11/22 18:01> Affect: normal affect <ADAN Osman - Last Filed: 04/11/22 18:01> Attitude: cooperative <ADAN Osman - Last Filed: 04/11/22 18:01> Thought process: Normal thought process present <ADAN Osman - Last Filed: 04/11/22 18:01> Thought content: Normal thought content present <ADAN Osman - Last Filed: 04/11/22 18:01> Insight: Good insight present (Psych) <ADAN Osman - Last Filed: 04/11/22 18:01> Course Course Course Narrative: 20:46 hospitalist updated this GLASS CLEANER that patient did not want to be admitted. Patient would be discharged against medical advice. I did have a discussion with this patient regarding plan for discharge against medical advice. Patient is alert oriented x4, answering questions appropriately, patient verbalized understanding that he could have detrimental effects for leaving against medical advice. He understands if symptoms worsen, that he must return to the emergency department for evaluation. Discussion with Dr. Gates via tiger text, I did refer patient to Dr. Gates for ortho consult, patient placed in double sugar-tong and sling. microsoft net developer utilized for all correspondence. Google translate utilized for discharge instructions, AMA <Winter Nugent NP - Last Filed: 04/11/22 22:08> Procedures Orthopedic Splinting/Casting Injury #1: Side: right <ADAN Osman - Last Filed: 04/11/22 18:01> Upper Extremity Injury Location: elbow <ADAN Osman - Last Filed: 04/11/22 18:01> Upper Extremity Immobilizer: sling/shoulder immobilizer <ADAN Osman - Last Filed: 04/11/22 18:01> Medical Decision Making MDM Narrative Medical decision making narrative: Patient is a 61 year old assigned male at with a history of IVDU, alcoholism, DM, and HTN presenting to the emergency department today with left elbow pain. Patient's physical exam was as documented with an erythematous, swollen, and warm right elbow. Patient's blood work showed an elevated WBC count, ESR, and CRP consistent with a cellulitis of the right elbow. Patient was not tachycardic, a fever, and did not have an elevated lactic acid. Patient's chest, head, C-Spine, and abdomen/pelvis CT showed no acute process. Patient's right elbow CT showed a comminuted olecrenon fracture but no evidence of abscess. I do not believe this patient to be septic at this time as his clinical presentation is most consistent with a right elbow cellulitis. I spoke to the orthopedic provider vocational placement specialist who recommended the patient be placed in a sling and they will follow up on the case. I spoke to the hospitalist team who agreed to admission. I explained my physical exam findings as well as all test results to the patient. I answered all questions asked by the patient. Patient was given IV antibiotics. Patient verbalized agreement and understanding with this treatment plan and admission. <ADAN Osman - Last Filed: 04/11/22 18:01> Medical Records Medical records reviewed: Yes I reviewed the patient's medical records. <ADAN Osman - Last Filed: 04/11/22 18:01> Lab Data Lab results reviewed: Yes I reviewed the patient's lab results. <ADAN Osman - Last Filed: 04/11/22 18:01> Result diagrams: : 04/11/22 15:18 04/11/22 15:18 <ADAN Osman - Last Filed: 04/11/22 18:01> Labs: Lab Results 04/11/22 04/11/22 04/11/22 Range/Units 15:18 15:18 15:18 WBC 15.6 H (4.8-10.8) X10*3/uL RBC 4.52 L D (4.60-5.80) X10*6/uL Hgb 12.5 L (14.0-18.0) g/dl Hct 38.8 L (42.0-52.0) % MCV 85.8 (80.0-98.0) fL MCH 27.7 (27.0-33.0) pg MCHC 32.2 (31.0-36.0) g/dl RDW 14.3 (11.0-16.0) % Plt Count 386 D (160-400) X10*3/uL MPV 8.9 L (9.4-12.4) fL Immature Gran % (Auto) 0.4 (0.0-0.4) % Neut % (Auto) 77.4 H (45-73) % Lymph % (Auto) 15.1 L (20-40) % [place]y % (Auto) 5.8 (2-11) % Eos % (Auto) 0.9 (0-4) % Baso % (Auto) 0.4 (0-2) % Lymph # (Auto) 2.4 (1.2-4.9) X10*3/uL [place] # (Auto) 0.9 (0.1-1.2) X10*3/uL Eos # (Auto) 0.1 (0.0-0.4) X10*3/uL Baso # (Auto) 0.1 (0.0-0.2) X10*3/uL Abs Immat Gran (auto) 0.06 H (0.00-0.03) X10*3/uL Absolute Neuts (auto) 12.1 H (2.0-8.3) x10*3/uL Absolute Nucleated RBC 0.000 (0.0-0.012) X10*3/uL Nucleated RBC % (auto) 0.0 (0.0-0.2) /100WBC ESR (0-15) MM/HR Sodium 134 L (135-145) mmol/L Potassium 4.1 (3.3-5.1) mmol/L Chloride 95 L (96-108) mmol/L Carbon Dioxide 26 (22-29) mmol/L Anion Gap 17 (12-20) BUN 24 H (9-16) mg/dL Creatinine 1.67 H (0.5-1.4) mg/dL Estim Creat Clear Calc 48.9 Estimated GFR 42 Random Glucose 133 H (60-115) mg/dL Lactic Acid (0.5-2.0) mmol/L Calcium 8.9 D (8.4-10.2) mg/dL Magnesium 1.9 (1.6-2.6) mg/dL Total Bilirubin 0.6 (0.0-1.0) mg/dL AST 21 (5-37) U/L ALT 17 (0-40) U/L Alkaline Phosphatase 248 H D (39-117) U/L C-Reactive Protein 10.73 H (< or = 0.50) mg/dL Total Protein 9.7 H D (6.5-8.0) g/dL Albumin 3.4 L (3.5-5.0) g/dL Urine Color Urine Appearance Urine pH (5.0-9.0) Ur Specific [place] (1.005-1.025) Urine Protein (Neg-Trace) mg/dL Urine Glucose (UA) (Negative) mg/dL Urine Ketones (Negative) mg/dL Urine Blood (Negative) Urine Nitrite (Negative) Ur Leukocyte Esterase (Negative) Urine Opiates Screen (Not Detect) Urine Fentanyl Screen (Not Detect) Ur Barbiturates Screen (Not Detect) Ur Phencyclidine Scrn (Not Detect) Ur Amphetamines Screen (Not Detect) U Benzodiazepines Scrn (Not Detect) Urine Cocaine Screen (Not Detect) U Marijuana (THC) Screen (Not Detect) Ethyl Alcohol mg/dL COVID-19 ([facility]) Negative (Negative) COVID-19 Clin Com See Note 04/11/22 04/11/22 04/11/22 Range/Units 15:18 15:18 15:18 WBC (4.8-10.8) X10*3/uL RBC (4.60-5.80) X10*6/uL Hgb (14.0-18.0) g/dl Hct (42.0-52.0) % MCV (80.0-98.0) fL MCH (27.0-33.0) pg MCHC (31.0-36.0) g/dl RDW (11.0-16.0) % Plt Count (160-400) X10*3/uL MPV (9.4-12.4) fL Immature Gran % (Auto) (0.0-0.4) % Neut % (Auto) (45-73) % Lymph % (Auto) (20-40) % Emery % (Auto) (2-11) % Eos % (Auto) (0-4) % Baso % (Auto) (0-2) % Lymph # (Auto) (1.2-4.9) X10*3/uL [place] # (Auto) (0.1-1.2) X10*3/uL Eos # (Auto) (0.0-0.4) X10*3/uL Baso # (Auto) (0.0-0.2) X10*3/uL Abs Immat Gran (auto) (0.00-0.03) X10*3/uL Absolute Neuts (auto) (2.0-8.3) x10*3/uL Absolute Nucleated RBC (0.0-0.012) X10*3/uL Nucleated RBC % (auto) (0.0-0.2) /100WBC ESR 83 H (0-15) MM/HR Sodium (135-145) mmol/L Potassium (3.3-5.1) mmol/L Chloride (96-108) mmol/L Carbon Dioxide (22-29) mmol/L Anion Gap (12-20) BUN (9-16) mg/dL Creatinine (0.5-1.4) mg/dL Estim Creat Clear Calc Estimated GFR Random Glucose (60-115) mg/dL Lactic Acid 1.1 (0.5-2.0) mmol/L Calcium (8.4-10.2) mg/dL Magnesium (1.6-2.6) mg/dL Total Bilirubin (0.0-1.0) mg/dL AST (5-37) U/L ALT (0-40) U/L Alkaline Phosphatase (39-117) U/L C-Reactive Protein (< or = 0.50) mg/dL Total Protein (6.5-8.0) g/dL Albumin (3.5-5.0) g/dL Urine Color Urine Appearance Urine pH (5.0-9.0) Ur Specific [place] (1.005-1.025) Urine Protein (Neg-Trace) mg/dL Urine Glucose (UA) (Negative) mg/dL Urine Ketones (Negative) mg/dL Urine Blood (Negative) Urine Nitrite (Negative) Ur Leukocyte Esterase (Negative) Urine Opiates Screen (Not Detect) Urine Fentanyl Screen (Not Detect) Ur Barbiturates Screen (Not Detect) Ur Phencyclidine Scrn (Not Detect) Ur Amphetamines Screen (Not Detect) U Benzodiazepines Scrn (Not Detect) Urine Cocaine Screen (Not Detect) U Marijuana (THC) Screen (Not Detect) Ethyl Alcohol 119 mg/dL COVID-19 ([facility]) (Negative) COVID-19 Clin Com 04/11/22 04/11/22 Range/Units 20:50 20:50 WBC (4.8-10.8) X10*3/uL RBC (4.60-5.80) X10*6/uL Hgb (14.0-18.0) g/dl Hct (42.0-52.0) % MCV (80.0-98.0) fL MCH (27.0-33.0) pg MCHC (31.0-36.0) g/dl RDW (11.0-16.0) % Plt Count (160-400) X10*3/uL MPV (9.4-12.4) fL Immature Gran % (Auto) (0.0-0.4) % Neut % (Auto) (45-73) % Lymph % (Auto) (20-40) % Emery % (Auto) (2-11) % Eos % (Auto) (0-4) % Baso % (Auto) (0-2) % Lymph # (Auto) (1.2-4.9) X10*3/uL [place] # (Auto) (0.1-1.2) X10*3/uL Eos # (Auto) (0.0-0.4) X10*3/uL Baso # (Auto) (0.0-0.2) X10*3/uL Abs Immat Gran (auto) (0.00-0.03) X10*3/uL Absolute Neuts (auto) (2.0-8.3) x10*3/uL Absolute Nucleated RBC (0.0-0.012) X10*3/uL Nucleated RBC % (auto) (0.0-0.2) /100WBC ESR (0-15) MM/HR Sodium (135-145) mmol/L Potassium (3.3-5.1) mmol/L Chloride (96-108) mmol/L Carbon Dioxide (22-29) mmol/L Anion Gap (12-20) BUN (9-16) mg/dL Creatinine (0.5-1.4) mg/dL Estim Creat Clear Calc Estimated GFR Random Glucose (60-115) mg/dL Lactic Acid (0.5-2.0) mmol/L Calcium (8.4-10.2) mg/dL Magnesium (1.6-2.6) mg/dL Total Bilirubin (0.0-1.0) mg/dL AST (5-37) U/L ALT (0-40) U/L Alkaline Phosphatase (39-117) U/L C-Reactive Protein (< or = 0.50) mg/dL Total Protein (6.5-8.0) g/dL Albumin (3.5-5.0) g/dL Urine Color Yellow Urine Appearance Clear Urine pH 7.0 (5.0-9.0) Ur Specific [place] 1.010 (1.005-1.025) Urine Protein Negative (Neg-Trace) mg/dL Urine Glucose (UA) 500 H (Negative) mg/dL Urine Ketones Negative (Negative) mg/dL Urine Blood Negative (Negative) Urine Nitrite Negative (Negative) Ur Leukocyte Esterase Negative (Negative) Urine Opiates Screen POSITIVE H (Not Detect) Urine Fentanyl Screen POSITIVE H (Not Detect) Ur Barbiturates Screen Not Detected (Not Detect) Ur Phencyclidine Scrn Not Detected (Not Detect) Ur Amphetamines Screen Not Detected (Not Detect) U Benzodiazepines Scrn Not Detected (Not Detect) Urine Cocaine Screen Not Detected (Not Detect) U Marijuana (THC) Screen Not Detected (Not Detect) Ethyl Alcohol mg/dL COVID-19 ([facility]) (Negative) COVID-19 Clin Com <ADAN Osman - Last Filed: 04/11/22 18:01> Lab Results 04/11/22 04/11/22 04/11/22 Range/Units 15:18 15:18 15:18 WBC 15.6 H (4.8-10.8) X10*3/uL RBC 4.52 L D (4.60-5.80) X10*6/uL Hgb 12.5 L (14.0-18.0) g/dl Hct 38.8 L (42.0-52.0) % MCV 85.8 (80.0-98.0) fL MCH 27.7 (27.0-33.0) pg MCHC 32.2 (31.0-36.0) g/dl RDW 14.3 (11.0-16.0) % Plt Count 386 D (160-400) X10*3/uL MPV 8.9 L (9.4-12.4) fL Immature Gran % (Auto) 0.4 (0.0-0.4) % Neut % (Auto) 77.4 H (45-73) % Lymph % (Auto) 15.1 L (20-40) % [place] % (Auto) 5.8 (2-11) % Eos % (Auto) 0.9 (0-4) % Baso % (Auto) 0.4 (0-2) % Lymph # (Auto) 2.4 (1.2-4.9) X10*3/uL [place] # (Auto) 0.9 (0.1-1.2) X10*3/uL Eos # (Auto) 0.1 (0.0-0.4) X10*3/uL Baso # (Auto) 0.1 (0.0-0.2) X10*3/uL Abs Immat Gran (auto) 0.06 H (0.00-0.03) X10*3/uL Absolute Neuts (auto) 12.1 H (2.0-8.3) x10*3/uL Absolute Nucleated RBC 0.000 (0.0-0.012) X10*3/uL Nucleated RBC % (auto) 0.0 (0.0-0.2) /100WBC ESR (0-15) MM/HR Sodium 134 L (135-145) mmol/L Potassium 4.1 (3.3-5.1) mmol/L Chloride 95 L (96-108) mmol/L Carbon Dioxide 26 (22-29) mmol/L Anion Gap 17 (12-20) BUN 24 H (9-16) mg/dL Creatinine 1.67 H (0.5-1.4) mg/dL Estim Creat Clear Calc 48.9 Estimated GFR 42 Random Glucose 133 H (60-115) mg/dL Lactic Acid (0.5-2.0) mmol/L Calcium 8.9 D (8.4-10.2) mg/dL Magnesium 1.9 (1.6-2.6) mg/dL Total Bilirubin 0.6 (0.0-1.0) mg/dL AST 21 (5-37) U/L ALT 17 (0-40) U/L Alkaline Phosphatase 248 H D (39-117) U/L C-Reactive Protein 10.73 H (< or = 0.50) mg/dL Total Protein 9.7 H D (6.5-8.0) g/dL Albumin 3.4 L (3.5-5.0) g/dL Urine Color Urine Appearance Urine pH (5.0-9.0) Ur Specific [place] (1.005-1.025) Urine Protein (Neg-Trace) mg/dL Urine Glucose (UA) (Negative) mg/dL Urine Ketones (Negative) mg/dL Urine Blood (Negative) Urine Nitrite (Negative) Ur Leukocyte Esterase (Negative) Urine Opiates Screen (Not Detect) Urine Fentanyl Screen (Not Detect) Ur Barbiturates Screen (Not Detect) Ur Phencyclidine Scrn (Not Detect) Ur Amphetamines Screen (Not Detect) U Benzodiazepines Scrn (Not Detect) Urine Cocaine Screen (Not Detect) U Marijuana (THC) Screen (Not Detect) Ethyl Alcohol mg/dL COVID-19 ([facility]) Negative (Negative) COVID-19 Clin Com See Note 04/11/22 04/11/22 04/11/22 Range/Units 15:18 15:18 15:18 WBC (4.8-10.8) X10*3/uL RBC (4.60-5.80) X10*6/uL Hgb (14.0-18.0) g/dl Hct (42.0-52.0) % MCV (80.0-98.0) fL MCH (27.0-33.0) pg MCHC (31.0-36.0) g/dl RDW (11.0-16.0) % Plt Count (160-400) X10*3/uL MPV (9.4-12.4) fL Immature Gran % (Auto) (0.0-0.4) % Neut % (Auto) (45-73) % Lymph % (Auto) (20-40) % Emery % (Auto) (2-11) % Eos % (Auto) (0-4) % Baso % (Auto) (0-2) % Lymph # (Auto) (1.2-4.9) X10*3/uL Emery # (Auto) (0.1-1.2) X10*3/uL Eos # (Auto) (0.0-0.4) X10*3/uL Baso # (Auto) (0.0-0.2) X10*3/uL Abs Immat Gran (auto) (0.00-0.03) X10*3/uL Absolute Neuts (auto) (2.0-8.3) x10*3/uL Absolute Nucleated RBC (0.0-0.012) X10*3/uL Nucleated RBC % (auto) (0.0-0.2) /100WBC ESR 83 H (0-15) MM/HR Sodium (135-145) mmol/L Potassium (3.3-5.1) mmol/L Chloride (96-108) mmol/L Carbon Dioxide (22-29) mmol/L Anion Gap (12-20) BUN (9-16) mg/dL Creatinine (0.5-1.4) mg/dL Estim Creat Clear Calc Estimated GFR Random Glucose (60-115) mg/dL Lactic Acid 1.1 (0.5-2.0) mmol/L Calcium (8.4-10.2) mg/dL Magnesium (1.6-2.6) mg/dL Total Bilirubin (0.0-1.0) mg/dL AST (5-37) U/L ALT (0-40) U/L Alkaline Phosphatase (39-117) U/L C-Reactive Protein (< or = 0.50) mg/dL Total Protein (6.5-8.0) g/dL Albumin (3.5-5.0) g/dL Urine Color Urine Appearance Urine pH (5.0-9.0) Ur Specific [place] (1.005-1.025) Urine Protein (Neg-Trace) mg/dL Urine Glucose (UA) (Negative) mg/dL Urine Ketones (Negative) mg/dL Urine Blood (Negative) Urine Nitrite (Negative) Ur Leukocyte Esterase (Negative) Urine Opiates Screen (Not Detect) Urine Fentanyl Screen (Not Detect) Ur Barbiturates Screen (Not Detect) Ur Phencyclidine Scrn (Not Detect) Ur Amphetamines Screen (Not Detect) U Benzodiazepines Scrn (Not Detect) Urine Cocaine Screen (Not Detect) U Marijuana (THC) Screen (Not Detect) Ethyl Alcohol 119 mg/dL COVID-19 ([facility]) (Negative) COVID-19 Clin Com 04/11/22 04/11/22 Range/Units 20:50 20:50 WBC (4.8-10.8) X10*3/uL RBC (4.60-5.80) X10*6/uL Hgb (14.0-18.0) g/dl Hct (42.0-52.0) % MCV (80.0-98.0) fL MCH (27.0-33.0) pg MCHC (31.0-36.0) g/dl RDW (11.0-16.0) % Plt Count (160-400) X10*3/uL MPV (9.4-12.4) fL Immature Gran % (Auto) (0.0-0.4) % Neut % (Auto) (45-73) % Lymph % (Auto) (20-40) % [place] % (Auto) (2-11) % Eos % (Auto) (0-4) % Baso % (Auto) (0-2) % Lymph # (Auto) (1.2-4.9) X10*3/uL [place] # (Auto) (0.1-1.2) X10*3/uL Eos # (Auto) (0.0-0.4) X10*3/uL Baso # (Auto) (0.0-0.2) X10*3/uL Abs Immat Gran (auto) (0.00-0.03) X10*3/uL Absolute Neuts (auto) (2.0-8.3) x10*3/uL Absolute Nucleated RBC (0.0-0.012) X10*3/uL Nucleated RBC % (auto) (0.0-0.2) /100WBC ESR (0-15) MM/HR Sodium (135-145) mmol/L Potassium (3.3-5.1) mmol/L Chloride (96-108) mmol/L Carbon Dioxide (22-29) mmol/L Anion Gap (12-20) BUN (9-16) mg/dL Creatinine (0.5-1.4) mg/dL Estim Creat Clear Calc Estimated GFR Random Glucose (60-115) mg/dL Lactic Acid (0.5-2.0) mmol/L Calcium (8.4-10.2) mg/dL Magnesium (1.6-2.6) mg/dL Total Bilirubin (0.0-1.0) mg/dL AST (5-37) U/L ALT (0-40) U/L Alkaline Phosphatase (39-117) U/L C-Reactive Protein (< or = 0.50) mg/dL Total Protein (6.5-8.0) g/dL Albumin (3.5-5.0) g/dL Urine Color Yellow Urine Appearance Clear Urine pH 7.0 (5.0-9.0) Ur Specific [place] 1.010 (1.005-1.025) Urine Protein Negative (Neg-Trace) mg/dL Urine Glucose (UA) 500 H (Negative) mg/dL Urine Ketones Negative (Negative) mg/dL Urine Blood Negative (Negative) Urine Nitrite Negative (Negative) Ur Leukocyte Esterase Negative (Negative) Urine Opiates Screen POSITIVE H (Not Detect) Urine Fentanyl Screen POSITIVE H (Not Detect) Ur Barbiturates Screen Not Detected (Not Detect) Ur Phencyclidine Scrn Not Detected (Not Detect) Ur Amphetamines Screen Not Detected (Not Detect) U Benzodiazepines Scrn Not Detected (Not Detect) Urine Cocaine Screen Not Detected (Not Detect) U Marijuana (THC) Screen Not Detected (Not Detect) Ethyl Alcohol mg/dL COVID-19 ([facility]) (Negative) COVID-19 Clin Com <Winter Nugent NP - Last Filed: 04/11/22 22:08> Imaging Data CT abdomen, pelvis, chest: Attestation: I personally reviewed and interpreted this imaging study as follows: <ADAN Osman - Last Filed: 04/11/22 18:01> My impression: No acute process. <ADAN Osman - Last Filed: 04/11/22 18:01> Radiologist's impression: EXAMINATION: CT CHEST WITHOUT CONTRAST CT ABDOMEN AND PELVIS WITHOUT CONTRAST CLINICAL INFORMATION: Fall COMPARISON: 10/01/2021 TECHNIQUE: Multidetector volumetric imaging was performed through the chest, abdomen and pelvis without contrast. Sagittal and coronal reformatted images were obtained on the technologist's workstation. Axial MIP volume rendering provided. This CT examination was performed using dose optimization techniques as appropriate, variously including the following: *Automated exposure control *Adjustment of mA and/or kV according to patient size (this includes techniques or standardized protocols for targeted exams where dose is matched to indication/reason for exam; i.e. extremities or head) *Use of iterative reconstruction technique DLP: 1150 mGy-cm. FINDINGS: CHEST: Lungs: The central airways are patent. Scattered bronchial filling defects distally. No consolidation. Minimal atelectasis. No pneumothorax. No pleural effusion.? Mediastinum: The heart is enlarged. There is no pericardial effusion. Central vascular structures are unremarkable. Prominent lymph nodes are seen. For instance there is a right paratracheal node measuring 1 cm in short axis on series 5 image 18. This is fairly similar to prior.. ? Coronary Artery Calcification: Present. Chest Wall/Axilla: No lymphadenopathy. No chest wall mass.? ABDOMEN/PELVIS: Liver, Gallbladder, Biliary Tree: Normal size of the liver with a nodular Contour. Caudate hypertrophy. No focal liver lesion or biliary ductal dilatation. The gallbladder is unremarkable with no evidence of radiopaque gallstones, gallbladder wall thickening, or pericholecystic inflammatory changes.? Pancreas: Unremarkable.? Spleen: Unremarkable.? Adrenal Glands: Unremarkable.? Kidneys and Ureters: The kidneys are normal in size, shape, and attenuation. No hydronephrosis, hydroureter or calculi seen. No perinephric stranding.? Bladder: Unremarkable.? Gastrointestinal Tract: The stomach is unremarkable. Normal caliber of the small bowel. No obstruction. No colonic wall thickening or inflammation. Normal appendix. No free air or free fluid.? Abdominal Wall: No hernia is demonstrated.? Lymphovascular Structures:? Lymph nodes: Normal. Vascular: Normal caliber aorta with mild atherosclerotic calcifications. Pelvic Viscera: The prostate and seminal vesicles are unremarkable.? OSSEOUS STRUCTURES: Vertebral body height and alignment maintained. Small endplate osteophytes present throughout. Mild facet arthropathy of the lumbar spine. The sternum is intact. No acute rib fracture. Intact pelvis. CT/CT chest wo IV con IMPRESSION: 1.? No acute traumatic finding of the chest, abdomen, or pelvis. 2.? Cirrhotic liver. Dictated By: Dalton Decker MD Signed By: Electronically signed by Dalton Decker MD 04/11/22 2018 <ADAN Osman - Last Filed: 04/11/22 18:01> CT right elbow : Attestation: I personally reviewed and interpreted this imaging study as follows: <ADAN Osman - Last Filed: 04/11/22 18:01> My impression: Acute fracture. <ADAN Osman - Last Filed: 04/11/22 18:01> Radiologist's impression: EXAMINATION: CT ELBOW RIGHT WITHOUT CONTRAST CLINICAL INFORMATION: History of fall and swelling. Possible abscess.? COMPARISON: None? TECHNIQUE: Multidetector CT imaging examination of the right elbow was performed without intravenous contrast. The axial images and multiplanar reformatted images are reviewed. This CT examination was performed using dose optimization techniques as appropriate, variously including the following: *Automated exposure control. *Adjustment of mA and/or kV according to patient size (this includes techniques or standardized protocols for targeted exams where dose is matched to indication/reason for exam, i.e., extremities or head). *Use of iterative reconstruction technique. DLP: 133 mGy-cm FINDINGS: Alignment is normal at the ulnohumeral and radiocapitellar articulations. No radial head or neck fracture. There is osseous fragmentation of the olecranon in the region of triceps tendon attachment. The overlying skin and subcutaneous tissues are edematous. No discrete, measurable fluid collection in this region, although assessment is partially limited by the noncontrast nature of this test. One of the olecranon bone fragments that measures 0.7 cm in length is displaced proximally by 1 cm. No elbow joint effusion. The muscles of the proximal forearm are unremarkable. The neurovascular structures are grossly normal for a noncontrast examination. There is no abnormal thickening of the ulnar nerve as it courses through the region of the cubital tunnel.? CT/CT elbow RT wo IV con IMPRESSION: *? No noncontrast imaging evidence of soft tissue abscess at the elbow. No elbow joint effusion. *? There is a comminuted, displaced fracture of the olecranon corresponding to the region of the triceps tendon attachment. The soft tissues are edematous.? Dictated By: Sedrick Goins MD Signed By: Electronically signed by Sedrick Goins MD 04/11/22 [id number] <ADAN Osman - Last Filed: 04/11/22 18:01> CT head and c-spine: Attestation: I personally reviewed and interpreted this imaging study as follows: <ADAN Osman - Last Filed: 04/11/22 18:01> My impression: No acute process. <ADAN Osman - Last Filed: 04/11/22 18:01> Radiologist's impression: EXAMINATION: NONCONTRAST HEAD CT NONCONTRAST CERVICAL SPINE CT INDICATION INFORMATION: Fall COMPARISON: CT abdomen C-spine 12/06/2021 TECHNIQUE: Separate noncontrast CT examinations of the head and cervical spine were performed. Coronal and sagittal images were created for each examination at the technologist workstation. This CT examination was performed using dose optimization techniques as appropriate, variously including the following: *Automated exposure control *Adjustment of mA and/or kV according to patient size (this includes techniques or standardized protocols for targeted exams where dose is matched to indication/reason for exam; i.e. extremities or head) *Use of iterative reconstruction technique DLP: 1717 mGy-cm FINDINGS: HEAD: No intra or extra-axial fluid collection, hemorrhage, or mass. No ventriculomegaly. No midline shift or herniation. Basal cisterns are patent. Menjivar-white matter differentiation is maintained. No territorial encephalomalacia. ?Proportional prominence of the ventricles and sulcal spaces is consistent with mild volume loss. There is minimal nonspecific periventricular white matter hypoattenuation. Bilateral basal ganglia calcifications noted. No calvarial fracture or soft tissue abnormality. ?The mastoid air cells and visualized portions of the paranasal sinuses are well aerated. CERVICAL SPINE: Alignment: Straightening of the normal cervical lordosis. No subluxation. Vertebra: No acute fracture. No prevertebral soft tissue swelling. Degenerative disc disease: Moderate cervical spondylosis at C5-C6 and C6-C7 with disc height loss, endplate sclerosis and proliferative change. Uncovertebral spurring at C6 and C7 with left-sided predominance. Other findings: No cervical lymphadenopathy. Visualized major salivary glands and thyroid gland are unremarkable. Visualized lung apices are clear. CT/CT head/brain wo IV con IMPRESSION: 1.? No intracranial hemorrhage or calvarial fracture. 2.? No traumatic subluxation or acute cervical spine fracture. Dictated By: Edilberto Minaya Signed By: Electronically signed by Edilberto?Rei 04/11/22 1654 <ADAN Osman - Last Filed: 04/11/22 18:01> Critical Care Time Critical Care Time Critical Care Time: Yes <ADAN Osman - Last Filed: 04/11/22 18:01> Total Critical Care Time: 45 <ADAN Osman - Last Filed: 04/11/22 18:01> Attestation: I spent 45 minutes of Critical Care Time with this patient. This does not include time spent on separately reported billable procedures. <ADAN Osman - Last Filed: 04/11/22 18:01> Discharge Plan Discharge Clinical Impression: Cellulitis, Elbow fracture, Fall <ADAN Osman - Last Filed: 04/11/22 18:01> Patient Disposition: Home, Self-Care <ADAN Osman - Last Filed: 04/11/22 18:01> Instructions: Elbow Fracture (ED), Cellulitis (ED), Fall Prevention (ED) <ADAN Osman - Last Filed: 04/11/22 18:01> Additional Instructions: Considera la desintoxicaci?n. Te vas en contra del consejo m?dico. [place] doxiciclina 100 mg dos veces al d?a yesi los pr?ximos 10 d?as y Keflex 500 mg cada 8 horas yesi los pr?ximos 10 d?as. Le invitamos a regresar en cualquier momento para completar bonilla atenci?n. Te vas en contra del consejo m?dico. Seguimiento con ortopedia. Lo he referido al Dr. Gates. Por favor llame y solicite adrián tamy. Leighann por elegir rafi departamento de emergencias para bonilla evaluaci?n. Por favor, steve un seguimiento con el m?dico de atenci?n primaria seg?n sea necesario. Regrese al departamento de emergencias por cualquier s?ntoma nuevo, preocupante o que empeore. Consider detox. You are leaving against medical advice. Please take doxycycline 100 mg twice a day for the next 10 days and Keflex 500 mg every 8 hours that for the next 10 days. You more than welcome to return at any time to complete your care. You are leaving against medical advice. Follow-up with orthopedics. I have referred you Dr. Gates. Please call and request an appointment. Thank you for choosing this emergency department for evaluation. Please follow-up with primary care physician as needed. Return to the emergency department for any new, concerning, or worsening symptoms. <ADAN Osman - Last Filed: 04/11/22 18:01> Prescriptions: New doxycycline monohydrate 100 mg capsule 100 mg PO BID 10 Days Qty: 20 0RF cephalexin 500 mg capsule 500 mg PO Q8H 10 Days Qty: 30 0RF No Action simethicone [Gas Relief (simethicone)] 180 mg capsule 180 mg PO BID PRN (Reason: abdominal distention) Qty: 60 3RF sennosides [Natural Senna Laxative] 8.6 mg tablet 17.2 mg PO BEDTIME Qty: 180 2RF spironolactone 25 mg tablet 1 tab PO BEDTIME paroxetine HCl 20 mg tablet 1 tab PO BEDTIME Jardiance 10 mg tablet 1 tab PO QAM omeprazole 40 mg capsule,delayed release(DR/EC) 40 mg PO DAILY@0630 prazosin 1 mg capsule 1 mg PO BEDTIME PRN (Reason: nightmares) hydralazine 25 mg Tablet 25 mg PO BID Qty: 60 0RF Protocol: Hold for SBP< HOLD for SBP < : 90 furosemide 20 mg tablet 20 mg PO DAILY folic acid 1 mg tablet 1 mg PO DAILY thiamine HCl (vitamin B1) 100 mg tablet 100 mg PO DAILY Citrucel 500 mg tablet 500 mg PO DAILY Qty: 30 2RF Rx Instructions: take it with full glass of water Combivent Respimat 20-100 mcg/actuation mist 1 puff inhalation QID 30 Days Qty: 4 11RF Rx Instructions: space evenly during waking hours carvedilol 3.125 mg tablet 3.125 mg PO BID (DME) blood-glucose meter [FreeStyle [place] Lite] Kit See Rx Instructions Not Applicable BID Qty: 1 Rx Instructions: As directed (DME) FreeStyle Lite Strips Strip See Rx Instructions Not Applicable BID Qty: 10 Rx Instructions: As directed (DME) lancets [TRUEplus Lancets] 33 gauge misc See Rx Instructions Not Applicable BID Qty: 100 Rx Instructions: As directed methadone 10 mg/mL concentrate 30 mg PO DAILY <ADAN Osman - Last Filed: 04/11/22 18:01> Referrals: Dinesh Gates MD [Physician] - 3 days (Elbow fracture, cellulitis) <ADAN Osman - Last Filed: 04/11/22 18:01> Stand Alone Forms: Against Medical Advice <ADAN Osman - Last Filed: 04/11/22 18:01> Interventions: ED Discharge Assessment Last Done: 04/11/22 21:30 <ADAN Osman - Last Filed: 04/11/22 18:01>
[2022-04-11 14:57] VITALS: BP 156/89; BP 163/90; PULSE 72; RESP 16; TEMP 36.8; O2SAT 93; O2SAT 95; BMI 35.0
[2022-04-11 15:25] LABS: MANUAL DIFF FLAG NO
[2022-04-11 15:28] LABS: Basophils Absolute Auto 0.1 X10*3/uL (0.0-0.2); Basophils Percent Auto 0.4 % (0-2); Eosinophils Absolute Auto 0.1 X10*3/uL (0.0-0.4); Eosinophils Percent Auto 0.9 % (0-4); Hematocrit 38.8 % (42.0-52.0); Hemoglobin 12.5 g/dl (14.0-18.0); Imm Gran Abs Auto 0.06 X10*3/uL (0.00-0.03); Imm Gran Pct Auto 0.4 % (0.0-0.4); Lymphocytes Absolute Auto 2.4 X10*3/uL (1.2-4.9); Lymphocytes Percent Auto 15.1 % (20-40); Mean Corpuscular HGB Conc 32.2 g/dl (31.0-36.0); Mean Corpuscular Hemoglobin 27.7 pg (27.0-33.0); Mean Corpuscular Volume 85.8 fL (80.0-98.0); Mean Platelet Volume 8.9 fL (9.4-12.4); Monocytes Absolute Auto 0.9 X10*3/uL (0.1-1.2); Monocytes Percent Auto 5.8 % (2-11); Neutrophils Absolute Auto 12.1 x10*3/uL (2.0-8.3); Neutrophils Percent Auto 77.4 % (45-73); Platelet Count 386 X10*3/uL (160-400); Red Blood Count 4.52 X10*6/uL (4.60-5.80); Red Cell Distribution Width 14.3 % (11.0-16.0); White Blood Count 15.6 X10*3/uL (4.8-10.8)
[2022-04-11] MEDS: Piperacillin Sodium/Tazobactam 3.375 GM in 0.9 % Sodium Chloride 50 ML IV (15:39)
[2022-04-11 15:40] LABS: COVID-19 Test Negative (Negative)
[2022-04-11 15:42] LABS: Lactic Acid 1.1 mmol/L (0.5-2.0)
[2022-04-11 15:44] LABS: Ethanol 119 mg/dL
[2022-04-11 15:46] LABS: Alanine Aminotransferase 17 U/L (0-40); Albumin Level 3.4 g/dL (3.5-5.0); Alkaline Phosphatase 248 U/L (39-117); Anion Gap 17 (12-20); Aspartate Amino Transferase 21 U/L (5-37); Bilirubin Total 0.6 mg/dL (0.0-1.0); Blood Urea Nitrogen 24 mg/dL (9-16); C Reactive Protein 10.73 mg/dL (< or = 0.50); Calcium 8.9 mg/dL (8.4-10.2); Carbon Dioxide 26 mmol/L (22-29); Chloride 95 mmol/L (96-108); Creatinine Clr Calc Pharmacy 48.9; Estimated Glomerular Filt Rate 42; Glucose Random 133 mg/dL (60-115); Magnesium 1.9 mg/dL (1.6-2.6); Potassium 4.1 mmol/L (3.3-5.1); Sodium 134 mmol/L (135-145); Total Protein 9.7 g/dL (6.5-8.0)
[2022-04-11 16:06] LABS: Erythrocyte Sedimentation Rate 83 MM/HR (0-15)
[2022-04-11 16:42] VITALS: BP 125/82; PULSE 66; RESP 16; O2SAT 99
--- NOTE | 2022-04-11 16:46 | MHC.RECOVSUP ---
? Reason for consult Recovery Support o Current location: ED4 o Identified substance use concern: Alcohol - Support ? Intervention: o Community resources provided o Harm reduction discussion ? Plan: <del>o</del> <del>Referral</del> <del>to</del> <del>[facility]</del> <del>o</del> <del>Bed</del> <del>search</del> <del>in</del> <del>progress</del> <del>to</del> <del>o</del> <del>Follow</del> <del>up</del> <del>tomorrow</del> <del>o</del> <del>Patient</del> <del>awaiting</del> <del>crisis</del> <del>evaluation</del> o Patient to follow up with [facility] after discharge ? Additional information: Met with [place] speaking Patient.. Patient stated that he had a heart attack resent.. and that he has feii a couple of time since... He stated that he did have a beer after.. Recourses was given to Patient
[2022-04-11 17:12] VITALS: BP 119/73; PULSE 64; RESP 16; TEMP 36.6; O2SAT 98
--- NOTE | 2022-04-11 19:09 | PHA.MEDREC ---
Pharmacy Consult ? Medication Reconciliation Pharmacy has completed the medication reconciliation. CLINIC CLOSED0 UNABLE TO VERIFY METHADONE DOSE. LOOKS LIKE PATIENT IS SUPPOSED TO BE TAKING CARVEDILOL BUT HAS NOT FILLED AT PHARMACY SINCE THE BEGINNING OF THE YEAR. .
[2022-04-11 20:00] VITALS: BP 136/79; PULSE 80; RESP 16; TEMP 36.3; O2SAT 98
--- NOTE | 2022-04-11 20:15 | P.HPHOSP_ITS ---
History of Present Illness Date of Service: 04/11/22 Attending physician on admission: Gerald Martinez Chief Complaint: fall, elbow pain 61 year old male with history of htn, congestive heart failure, non insulin dependent type 2 diabetes, h/o cardiac arrest with wide-complex tachcyardia, IV DA, opioid dependence on methadone, chronic PMFSH Medical History Chronic kidney disease Chronic respiratory failure CKD (chronic kidney disease) stage 3, GFR 30-59 ml/min Congestive heart failure Diabetes History of opiate therapy Liver cirrhosis Morbid obesity due to excess calories DARRIAN (obstructive sleep apnea) Family History Mother Cancer Diabetes Social History Household Members: Spouse Housing: Apartment Do you presently have visiting nurse or other home services: Yes Alcohol intake: current Alcohol intake frequency: 3 or more drinks per day Alcohol type: beer Patient Tobacco Use Status: Never used Tobacco Smoked in Last 30 Days: No e-Cigarette/Vaping Use: Never Used Use of substances other than those prescribed or required for medical reasons: No Substance Use Type: Heroin Advance Directives: No Advance Directives Information Provided: No service: No Current occupational status: disabled Meds Allergies Allergy/AdvReac Type Severity Reaction Status Date / Time aspirin [ASPIRIN] Allergy Unknown RASH Verified 02/20/22 14:41 ibuprofen Allergy Unknown nausea and Verified 02/20/22 14:41 vomiting Active Medications: Current Medications Pharmacy Consult (Consult Rx Vancomycin Dosing) 1 each MISCELLANE DAILY PRN PRN Reason: Consult order Home Medications Medication Instructions Recorded Confirmed Last Taken Type folic acid 1 mg tablet 1 mg PO DAILY 06/18/21 04/11/22 10/30/21 History thiamine HCl (vitamin B1) 100 mg 100 mg PO DAILY 06/18/21 04/11/22 10/30/21 History tablet omeprazole 40 mg capsule,delayed 40 mg PO DAILY@0630 09/28/21 04/11/22 10/30/21 History release blood sugar diagnostic (FreeStyle #10 ea 12/12/21 02/20/22 Unknown History Lite Strips) blood-glucose meter (FreeStyle #1 ea 12/12/21 02/20/22 Unknown History [place] Lite kit) carvedilol 3.125 mg tablet 3.125 mg PO BID 12/12/21 04/11/22 Unknown History furosemide 20 mg tablet 20 mg PO DAILY 12/12/21 04/11/22 Unknown History lancets 33 gauge (TRUEplus Lancets) #100 ea 12/12/21 02/20/22 Unknown History prazosin 1 mg capsule 1 mg PO BEDTIME PRN nightmares 12/12/21 04/11/22 Unknown History methadone 10 mg/mL oral concentrate 30 mg PO DAILY 02/20/22 02/20/22 Unknown H istory empagliflozin 10 mg tablet 1 tab PO QAM 04/11/22 04/11/22 Unknown History (Jardiance) paroxetine HCl 20 mg tablet 1 tab PO BEDTIME 04/11/22 04/11/22 Unknown History spironolactone 25 mg tablet 1 tab PO BEDTIME 04/11/22 04/11/22 Unknown History Physical Exam Vital Signs and Narrative: Vital Signs: Last Vital Signs Temp 97.9 F 04/11/22 17:12 Pulse 64 04/11/22 17:12 Resp 16 04/11/22 17:12 BP 119/73 04/11/22 17:12 Pulse Ox 98 04/11/22 17:12 O2 Del Method 04/11/22 17:12 O2 Flow Rate 2 04/11/22 17:12 BMI result Body Mass Index 35.0 Results Labs CBC and Chem 7: 04/11/22 15:18 04/11/22 15:18 Labs: Laboratory Results - last 24 hr 04/11/22 04/11/22 04/11/22 15:18 15:18 15:18 MCV 85.8 MCH 27.7 MCHC 32.2 RDW 14.3 Plt Count 386 D MPV 8.9 L Immature Gran % (Auto) 0.4 Neut % (Auto) 77.4 H Lymph % (Auto) 15.1 L [place] % (Auto) 5.8 Eos % (Auto) 0.9 Baso % (Auto) 0.4 Lymph # (Auto) 2.4 [place] # (Auto) 0.9 Eos # (Auto) 0.1 Baso # (Auto) 0.1 Abs Immat Gran (auto) 0.06 H Absolute Neuts (auto) 12.1 H Absolute Nucleated RBC 0.000 Nucleated RBC % (auto) 0.0 ESR Anion Gap 17 Estim Creat Clear Calc 48.9 Estimated GFR 42 Random Glucose 133 H Lactic Acid Calcium 8.9 D Magnesium 1.9 Total Bilirubin 0.6 AST 21 ALT 17 Alkaline Phosphatase 248 H D C-Reactive Protein 10.73 H Total Protein 9.7 H D Albumin 3.4 L Ethyl Alcohol COVID-19 ([facility]) Negative COVID-19 Clin Com See Note 04/11/22 04/11/22 04/11/22 15:18 15:18 15:18 MCV MCH MCHC RDW Plt Count MPV Immature Gran % (Auto) Neut % (Auto) Lymph % (Auto) [place] % (Auto) Eos % (Auto) Baso % (Auto) Lymph # (Auto) [place] # (Auto) Eos # (Auto) Baso # (Auto) Abs Immat Gran (auto) Absolute Neuts (auto) Absolute Nucleated RBC Nucleated RBC % (auto) ESR 83 H Anion Gap Estim Creat Clear Calc Estimated GFR Random Glucose Lactic Acid 1.1 Calcium Magnesium Total Bilirubin AST ALT Alkaline Phosphatase C-Reactive Protein Total Protein Albumin Ethyl Alcohol 119 COVID-19 ([facility]ERITA) COVID-19 Clin Com Imaging Radiologist's Impressions: Impressions Cervical Spine CT 04/11/22 16:22 IMPRESSION: 1. No intracranial hemorrhage or calvarial fracture. 2. No traumatic subluxation or acute cervical spine fracture. Head CT 04/11/22 16:22 IMPRESSION: 1. No intracranial hemorrhage or calvarial fracture. 2. No traumatic subluxation or acute cervical spine fracture. Elbow CT 04/11/22 16:24 IMPRESSION: * No noncontrast imaging evidence of soft tissue abscess at the elbow. No elbow joint effusion. * There is a comminuted, displaced fracture of the olecranon corresponding to the region of the triceps tendon attachment. The soft tissues are edematous. Abdomen/Pelvis CT 04/11/22 16:26 IMPRESSION: 1. No acute traumatic finding of the chest, abdomen, or pelvis. 2. Cirrhotic liver. Chest CT 04/11/22 16:26
[2022-04-11 20:56] LABS: Appearance Urine Clear; Color Urine Yellow; Glucose Urine UA 500 mg/dL (Negative); Leukocyte Esterase Urine Negative (Negative); Nitrite Urine Negative (Negative); Urine Blood Negative (Negative); Urine Ketones Negative (Negative); Urine Protein Negative (Neg-Trace)
--- NOTE | 2022-04-11 20:58 | P.EN_ITS ---
Event Note Date of Service: 04/11/22 Event Note: Pt seen at bedside with [place] Island[place] interpretor for admission to the hospital for cellulitis of the right elbow with comminuted right olecranon fracture following accidental fall 3 days ago. The patient was advised by his methadone clinic to present to the ED for evaluation. On arrival to the ED, ETOH level was 0.11 six hours ago and is alert and oriented x3 at this time. Patient is tearful stating his brother is possibly dying and he does not wish to be admitted though would like treatment. Discussed with the patient reasons admission is recommended. At this time will discuss with ED provider regarding patient declining admission and desire to leave AMA with outpatient ortho follow-up and possible oral antibiotics. He is advised to return to the hospital if symptoms worsen including development of fever.
[2022-04-11 21:14] LABS: Amphetamine Screen Urine Not Detected (Not Detect); Barbiturates, Urine Not Detected (Not Detect); Benzodiazepines Screen Urine Not Detected (Not Detect); Cannabinoid Screen Urine Not Detected (Not Detect); Cocaine Screen Urine Not Detected (Not Detect); Fentanyl, urine POSITIVE (Not Detect); Opiate Screen Urine POSITIVE (Not Detect); Phencyclidine Screen Urine Not Detected (Not Detect)
== END 2022-04-11 21:20 | disposition left against medical advice (07) ==
PROVIDERS: Physician Assistant Medical; Emergency Provider Emergency Medicine
DX: L03.113 Cellulitis of right upper limb (principal); S52.021A Displaced fracture of olecranon process without intraarticular extension of right ulna, initial encounter for closed fracture; W19.XXXA Unspecified fall, initial encounter; F10.20 Alcohol dependence, uncomplicated; Y90.5 Blood alcohol level of 100-119 mg/100 ml; F11.20 Opioid dependence, uncomplicated; E11.22 Type 2 diabetes mellitus with diabetic chronic kidney disease; I13.0 Hypertensive heart and chronic kidney disease with heart failure and stage 1 through stage 4 chronic kidney disease, or unspecified chronic kidney disease; N18.30 Chronic kidney disease, stage 3 unspecified; I50.9 Heart failure, unspecified; E66.9 Obesity, unspecified; Z68.35 Body mass index [BMI] 35.0-35.9, adult; Z91.81 History of falling; Y93.9 Activity, unspecified; Y92.019 Unspecified place in single-family (private) house as the place of occurrence of the external cause; Y99.9 Unspecified external cause status; Z20.822 Contact with and (suspected) exposure to COVID-19
CPT/HCPCS: 29105; 36415; 70450; 71250; 72125; 73200; 74176; 80053; 80307; 81003; 82077; 83605; 83735; 85025; 85652; 86140; 87040; 87070; 87147; 87205; 87635; 96365; 96367; 99284; 99285; J2543; J3370

== ENCOUNTER → 2022-04-22 10:53 | Outpatient (BNVA) | payer MEDICAID, SELFPAY | PROVIDERS: PCP Internal Medicine; Visit Provider Hospitalist | DX: G47.33 Obstructive sleep apnea (adult) (pediatric) (principal); R06.00 Dyspnea, unspecified; J96.11 Chronic respiratory failure with hypoxia | CPT/HCPCS: 99212 ==

== ENCOUNTER 2022-04-29 06:21 | Outpatient (REF) | payer MEDICAID, SELFPAY ==
--- NOTE | ~2022-04-29 | XR_ITS ---
EXAMINATION: XR ELBOW, RIGHT CLINICAL INFORMATION: Pain COMPARISON: Previous elbow CT April 2022 and previous x-ray December 2021 TECHNIQUE: AP, lateral, and oblique views of the right elbow. FINDINGS: There is a comminuted displaced fracture of the olecranon. There is increasing focal osteopenia or bone loss involving the olecranon and adjacent posterior distal humerus. There is diffuse soft tissue swelling that is increased. There is a joint effusion. Possible infection/osteomyelitis or septic arthritis should be considered. XR/XR elbow RT min 3V IMPRESSION: Comminuted displaced fracture of the olecranon with increasing bone loss, soft tissue swelling and large joint effusion. Possible infection should be considered. Findings will be communicated by the [facility] work flow lift electrician
== END 2022-04-29 06:22 | disposition home or self-care (01) ==
LOC: HO.HOSX 06:21
PROVIDERS: Visit Provider Physician Assistant
DX: M25.521 Pain in right elbow (principal); M25.621 Stiffness of right elbow, not elsewhere classified
CPT/HCPCS: 73080; 99202

== ENCOUNTER 2022-05-23 15:20 | Emergency (ER) | payer MEDICAID, SELFPAY ==
--- NOTE | ~2022-05-23 | XR_ITS ---
EXAMINATION: XR CHEST CLINICAL INFORMATION: Chest pain and shortness breath, recent drug usage COMPARISON: Chest x-ray 12/20/2021 TECHNIQUE: 2 views of the chest were obtained. FINDINGS: The lungs are clear. No airspace consolidation. No pleural effusion or pneumothorax. Cardiomediastinal silhouette is unchanged and within normal limits no evidence of pulmonary edema. Extrapleural fat deposition along the lateral lower chest wall noted, unchanged. No acute osseous injury. XR/XR chest 2V IMPRESSION: No acute pulmonary process.
[2022-05-23 15:26] VITALS: BP 158/68; PULSE 74; RESP 18; TEMP 36.7; O2SAT 96; BMI 32.5
--- NOTE | 2022-05-23 15:26 | ECG_ITS ---
Test Reason : CHEST PAIN Blood Pressure : / mmHG Vent. Rate : 070 BPM Atrial Rate : 070 BPM P-R Int : 178 ms QRS Dur : 078 ms QT Int : 412 ms P-R-T Axes : 006 -21 012 degrees QTc Int : 444 ms Sinus rhythm with Premature atrial complexes Minimal voltage criteria for LVH, may be normal variant ( R in aVL ) Borderline ECG When compared with ECG of 30-OCT-2021 18:28, Premature atrial complexes are now Present Referred By: Angle Guerra Electronically Signed By:LOC AMADOR
--- NOTE | 2022-05-23 15:26 | ED.CHESTPAIN ---
HPI - Chest Pain General Chief Complaint: Chest Pain <ADAN Lujan - Last Filed: 05/23/22 15:30> Stated Complaint: Chest Pain <ADAN Lujan - Last Filed: 05/23/22 15:30> Time Seen by Provider: 05/23/22 18:20 <ADAN Lujan - Last Filed: 05/23/22 15:30> Source: patient <Evan Lewis MD - Last Filed: 05/23/22 22:51> Mode of arrival: ambulatory <Evan Lewis MD - Last Filed: 05/23/22 22:51> History of Present Illness HPI narrative: Patient presented to emergency department complaining of left-sided chest pain, since yesterday, he has history of chronic respiratory failure congestive heart failure, essential hypertension, cardiac arrest, sinus bradycardia,pain is worse with movement left arm <Evan Leiws MD - Last Filed: 05/23/22 22:51> MD complaint: chest pain <Evan Lewis MD - Last Filed: 05/23/22 22:51> Pertinent past history: other (cardia arrest) <Evan Lewis MD - Last Filed: 05/23/22 22:51> Onset (ago): day(s) (1) <Evan Lewis MD - Last Filed: 05/23/22 22:51> Timing of current episode: constant <Evan Lewis MD - Last Filed: 05/23/22 22:51> Pain location: substernal <Evan Lewis MD - Last Filed: 05/23/22 22:51> Pain radiation: left arm <Evan Lewis MD - Last Filed: 05/23/22 22:51> Quality: aching <Evan Lewis MD - Last Filed: 05/23/22 22:51> Relieving factors: nothing <Evan Lewis MD - Last Filed: 05/23/22 22:51> Exacerbating factors: movement <Evan Lewis MD - Last Filed: 05/23/22 22:51> Related Data Home Medications: Home Medications Medication Instructions Recorded Confirmed folic acid 1 mg tablet 1 mg PO DAILY 06/18/21 04/11/22 thiamine HCl (vitamin B1) 100 mg 100 mg PO DAILY 06/18/21 04/11/22 tablet omeprazole 40 mg capsule,delayed 40 mg PO DAILY@0630 09/28/21 04/11/22 release blood sugar diagnostic (FreeStyle #10 ea 12/12/21 02/20/22 Lite Strips) blood-glucose meter (FreeStyle #1 ea 12/12/21 02/20/22 [place] Lite kit) carvedilol 3.125 mg tablet 3.125 mg PO BID 12/12/21 04/11/22 furosemide 20 mg tablet 20 mg PO DAILY 12/12/21 04/11/22 lancets 33 gauge (TRUEplus Lancets) #100 ea 12/12/21 02/20/22 prazosin 1 mg capsule 1 mg PO BEDTIME PRN nightmares 12/12/21 04/11/22 methadone 10 mg/mL oral concentrate 30 mg PO DAILY 02/20/22 02/20/22 empagliflozin 10 mg tablet 1 tab PO QAM 04/11/22 04/11/22 (Jardiance) paroxetine HCl 20 mg tablet 1 tab PO BEDTIME 04/11/22 04/11/22 spironolactone 25 mg tablet 1 tab PO BEDTIME 04/11/22 04/11/22 Oxygen Home Use 04/22/22 Previous Rx's Medication Instructions Recorded methylcellulose (laxative) 500 mg 500 mg PO DAILY #30 tabs 07/24/21 tablet (Citrucel) ipratropium 20 mcg-albuterol 100 1 puff inhalation QID 30 days #4 08/17/21 mcg/actuation mist for inhalation grams (Combivent Respimat) sennosides 8.6 mg tablet (Natural 17.2 mg PO BEDTIME constipation 10/12/21 Senna Laxative) #180 tabs simethicone 180 mg capsule (Gas 180 mg PO BID PRN abdominal 10/12/21 Relief (simethicone)) distention #60 caps hydralazine 25 mg tablet 25 mg PO BID #60 tabs 11/03/21 cephalexin 500 mg capsule 500 mg PO Q8H 10 days #30 caps 04/11/22 doxycycline monohydrate 100 mg 100 mg PO BID 10 days #20 caps 04/11/22 capsule <ADAN Lujan - Last Filed: 05/23/22 15:30> Allergies/Adverse Reactions: Allergies Allergy/AdvReac Type Severity Reaction Status Date / Time aspirin [ASPIRIN] Allergy Unknown RASH Verified 04/29/22 13:21 ibuprofen Allergy Unknown nausea and Verified 04/29/22 13:21 vomiting <ADAN Lujan - Last Filed: 05/23/22 15:30> Review of Systems Constitutional: Constitutional: Reports no additional constitutional complaints <Evan Lewis MD - Last Filed: 05/23/22 22:51> ENT: Reports system reviewed and no additional complaints, except as documented <Evan Lewis MD - Last Filed: 05/23/22 22:51> Cardiovascular: Cardiovascular: Reports no additional cardiovascular complaints <Evan Lewis MD - Last Filed: 05/23/22 22:51> PMFSH Past Medical History Medical History: Medical History Chronic kidney disease Chronic respiratory failure CKD (chronic kidney disease) stage 3, GFR 30-59 ml/min Congestive heart failure Diabetes History of opiate therapy Liver cirrhosis Morbid obesity due to excess calories DARRIAN (obstructive sleep apnea) <ADAN Lujan - Last Filed: 05/23/22 15:30> Family History Family History: Family History Mother Cancer Diabetes <ADAN Lujan - Last Filed: 05/23/22 15:30> Social History Social History: Social History Household Members: Spouse Housing: Apartment Do you presently have visiting nurse or other home services: Yes Alcohol intake: never Patient Tobacco Use Status: Never used Tobacco Smoked in Last 30 Days: No e-Cigarette/Vaping Use: Never Used Use of substances other than those prescribed or required for medical reasons: No Substance Use Type: Heroin Advance Directives: No Advance Directives Information Provided: No service: No Current occupational status: disabled <ADAN Lujan - Last Filed: 05/23/22 15:30> Physical Exam Vital Signs: Vital Signs: Last Vital Signs Temp 98.8 F 05/23/22 19:17 Pulse 65 05/23/22 19:17 Resp 23 H 05/23/22 19:17 BP 140/79 H 05/23/22 19:17 Pulse Ox 97 05/23/22 19:17 O2 Del Method 05/23/22 19:17 Oxygen Flow Rate 3 05/23/22 15:26 BMI result Body Mass Index 32.5 <ADAN Lujan - Last Filed: 05/23/22 15:30> Vital Signs: Last Vital Signs Temp 98.8 F 05/23/22 19:17 Pulse 65 05/23/22 19:17 Resp 23 H 05/23/22 19:17 BP 140/79 H 05/23/22 19:17 Pulse Ox 97 05/23/22 19:17 O2 Del Method 05/23/22 19:17 Oxygen Flow Rate 3 05/23/22 15:26 BMI result Body Mass Index 32.5 <Evan Lewis MD - Last Filed: 05/23/22 22:51> Const: General: cooperative <Evan Lewis MD - Last Filed: 05/23/22 22:51> Nutritional Appearance: obese <Evan Lewis MD - Last Filed: 05/23/22 22:51> Orientation/consciousness: patient oriented x3 <Evan Lewis MD - Last Filed: 05/23/22 22:51> Limitations: no limitations <Evan Lewis MD - Last Filed: 05/23/22 22:51> HEENT: Head: Yes normal to inspection <Evan Lewis MD - Last Filed: 05/23/22 22:51> General nose exam: Normal external nose present <Evan Lewis MD - Last Filed: 05/23/22 22:51> Face and sinus: Yes normal facial exam <Evan Lewis MD - Last Filed: 05/23/22 22:51> Mouth: Normal oral and palatal mucosa present <Evan Lewis MD - Last Filed: 05/23/22 22:51> Throat: Yes posterior oropharynx normal <Evan Lewis MD - Last Filed: 05/23/22 22:51> Neck: Neck: Yes normal visual inspection and Yes full ROM <Evan Lewis MD - Last Filed: 05/23/22 22:51> Chest: Chest palpation & inspection: normal inspection of the chest <Evan Lewis MD - Last Filed: 05/23/22 22:51> Resp: Effort & Inspection: normal respiratory effort <Evan Lewis MD - Last Filed: 05/23/22 22:51> Auscultation: clear to auscultation bilaterally <Evan Lewis MD - Last Filed: 05/23/22 22:51> Cardio: Palpation: normal PMI <Evan Lewis MD - Last Filed: 05/23/22 22:51> Rate: regular rate <Evan Lewis MD - Last Filed: 05/23/22 22:51> Rhythm: regular rhythm <Evan Lewis MD - Last Filed: 05/23/22 22:51> GI: Inspection: Yes normal to inspection <Evan Lewis MD - Last Filed: 05/23/22 22:51> Palpation (GI): Soft to palpation, not firm and nontender <Evan Lewis MD - Last Filed: 05/23/22 22:51> Auscultation: normal bowel sounds <Evan Lewis MD - Last Filed: 05/23/22 22:51> : General: Yes no CVA tenderness <Evan Lewis MD - Last Filed: 05/23/22 22:51> Back/Spine/Pelvis: Back: no CVA tenderness <Evan Lewis MD - Last Filed: 05/23/22 22:51> Skin: General skin exam: no rashes or lesions noted <Evan Lewis MD - Last Filed: 05/23/22 22:51> Lesions: no lesions <Evan Lewis MD - Last Filed: 05/23/22 22:51> Rashes: no rashes <Evan Lewis MD - Last Filed: 05/23/22 22:51> Hair: normal <Evan Lewis MD - Last Filed: 05/23/22 22:51> Neuro: General: patient oriented x3 <Evan Lewis MD - Last Filed: 05/23/22 22:51> Course Course Course Narrative: 15:30pm - 61yoM alcoholism, IV drug use reports he used today after the chest pain started, HTN, DM Who is on 2L of [place] oxygen [place]-speaking male presenting to the ER with complaints of left-sided chest pain that started since 09: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 Reports associated shortness of breath. Denies any dizziness, paresthesias, nausea vomiting, abdominal pain or any other symptoms complaints or concerns at this time. Plan: Labs, EKG, chest x-ray. Patient will be sent to the ER for further evaluation and treatment. <ADAN Lujan - Last Filed: 05/23/22 15:30> Reevaluation(s) Reevaluation #1: I re-examined the patient at 19:42 with the inspector returned materials Indra, he tells me that the pain is worse when he moves his arm he tells me that he he has pain in since he was trying to open his car today and strained the muscle.. Delta troponin is negative. He feels well now he wants to be discharge home <Evan Lewis MD - Last Filed: 05/23/22 22:51> Time: 19:43 <Evan Lewis MD - Last Filed: 05/23/22 22:51> Medications Administered Discontinued Medications Generic Name Dose Route Start Last Admin Trade Name Freq PRN Reason Stop Dose Admin Acetaminophen 975 mg 05/23/22 18:51 05/23/22 19:13 Acetaminophen 325 Mg Tablet PO 05/23/22 18:52 975 mg ONCE ONE Administration <ADAN Lujan - Last Filed: 05/23/22 15:30> Medications Administered Discontinued Medications Generic Name Dose Route Start Last Admin Trade Name Freq PRN Reason Stop Dose Admin Acetaminophen 975 mg 05/23/22 18:51 05/23/22 19:13 Acetaminophen 325 Mg Tablet PO 05/23/22 18:52 975 mg ONCE ONE Administration <Evan Lewis MD - Last Filed: 05/23/22 22:51> Medical Decision Making Differential Diagnosis Differential Diagnoses: The differential diagnosis associated with the presentation includes <Evan Lewis MD - Last Filed: 05/23/22 22:51> ACS/pnx/muscular strain <Evan Lewis MD - Last Filed: 05/23/22 22:51> Admission/Observation Consideration of admission/observation: Escalation of care including admission/observation considered <Evan Lewis MD - Last Filed: 05/23/22 22:51> Lab Data MDM Lab Attestation statement: I reviewed the patient's lab results. <Evan Lewis MD - Last Filed: 05/23/22 22:51> Result Diagrams: : 05/23/22 15:45 05/23/22 15:45 <ADAN Lujan - Last Filed: 05/23/22 15:30> Labs: Lab Results 05/23/22 05/23/22 05/23/22 Range/Units 15:45 15:45 15:45 WBC 11.4 H (4.8-10.8) X10*3/uL RBC 4.95 (4.60-5.80) X10*6/uL Hgb 13.8 L (14.0-18.0) g/dl Hct 44.1 (42.0-52.0) % MCV 89.1 (80.0-98.0) fL MCH 27.9 (27.0-33.0) pg MCHC 31.3 (31.0-36.0) g/dl RDW 15.9 (11.0-16.0) % Plt Count 248 D (160-400) X10*3/uL MPV 9.0 L (9.4-12.4) fL Immature Gran % (Auto) 0.4 (0.0-0.4) % Neut % (Auto) 69.6 (45-73) % Lymph % (Auto) 20.1 (20-40) % [place] % (Auto) 7.7 (2-11) % Eos % (Auto) 1.5 (0-4) % Baso % (Auto) 0.7 (0-2) % Lymph # (Auto) 2.3 (1.2-4.9) X10*3/uL [place] # (Auto) 0.9 (0.1-1.2) X10*3/uL Eos # (Auto) 0.2 (0.0-0.4) X10*3/uL Baso # (Auto) 0.1 (0.0-0.2) X10*3/uL Abs Immat Gran (auto) 0.05 H (0.00-0.03) X10*3/uL Absolute Neuts (auto) 7.9 (2.0-8.3) x10*3/uL Absolute Nucleated RBC 0.000 (0.0-0.012) X10*3/uL Nucleated RBC % (auto) 0.0 (0.0-0.2) /100WBC PT (10.0-13.1) SEC INR (0.9-1.1) Sodium 137 (135-145) mmol/L Potassium 4.8 (3.3-5.1) mmol/L Chloride 98 (96-108) mmol/L Carbon Dioxide 28 (22-29) mmol/L Anion Gap 16 (12-20) BUN 24 H (9-16) mg/dL Creatinine 1.46 H (0.5-1.4) mg/dL Estim Creat Clear Calc 53.9 Estimated GFR 49 Random Glucose 125 H (60-115) mg/dL Calcium 9.4 (8.4-10.2) mg/dL Magnesium 2.0 (1.6-2.6) mg/dL Total Bilirubin 0.7 (0.0-1.0) mg/dL AST 27 (5-37) U/L ALT 18 (0-40) U/L Alkaline Phosphatase 207 H (39-117) U/L Troponin I High Sens 8.7 (<3.5-35.0) ng/L Total Protein 8.9 H (6.5-8.0) g/dL Albumin 4.2 (3.5-5.0) g/dL 05/23/22 05/23/22 Range/Units 15:46 18:40 WBC (4.8-10.8) X10*3/uL RBC (4.60-5.80) X10*6/uL Hgb (14.0-18.0) g/dl Hct (42.0-52.0) % MCV (80.0-98.0) fL MCH (27.0-33.0) pg MCHC (31.0-36.0) g/dl RDW (11.0-16.0) % Plt Count (160-400) X10*3/uL MPV (9.4-12.4) fL Immature Gran % (Auto) (0.0-0.4) % Neut % (Auto) (45-73) % Lymph % (Auto) (20-40) % [place] % (Auto) (2-11) % Eos % (Auto) (0-4) % Baso % (Auto) (0-2) % Lymph # (Auto) (1.2-4.9) X10*3/uL [place] # (Auto) (0.1-1.2) X10*3/uL Eos # (Auto) (0.0-0.4) X10*3/uL Baso # (Auto) (0.0-0.2) X10*3/uL Abs Immat Gran (auto) (0.00-0.03) X10*3/uL Absolute Neuts (auto) (2.0-8.3) x10*3/uL Absolute Nucleated RBC (0.0-0.012) X10*3/uL Nucleated RBC % (auto) (0.0-0.2) /100WBC PT 11.5 (10.0-13.1) SEC INR 1.0 (0.9-1.1) Sodium (135-145) mmol/L Potassium (3.3-5.1) mmol/L Chloride (96-108) mmol/L Carbon Dioxide (22-29) mmol/L Anion Gap (12-20) BUN (9-16) mg/dL Creatinine (0.5-1.4) mg/dL Estim Creat Clear Calc Estimated GFR Random Glucose (60-115) mg/dL Calcium (8.4-10.2) mg/dL Magnesium (1.6-2.6) mg/dL Total Bilirubin (0.0-1.0) mg/dL AST (5-37) U/L ALT (0-40) U/L Alkaline Phosphatase (39-117) U/L Troponin I High Sens 8.9 (<3.5-35.0) ng/L Total Protein (6.5-8.0) g/dL Albumin (3.5-5.0) g/dL <ADAN Lujan - Last Filed: 05/23/22 15:30> Lab Results 05/23/22 05/23/22 05/23/22 Range/Units 15:45 15:45 15:45 WBC 11.4 H (4.8-10.8) X10*3/uL RBC 4.95 (4.60-5.80) X10*6/uL Hgb 13.8 L (14.0-18.0) g/dl Hct 44.1 (42.0-52.0) % MCV 89.1 (80.0-98.0) fL MCH 27.9 (27.0-33.0) pg MCHC 31.3 (31.0-36.0) g/dl RDW 15.9 (11.0-16.0) % Plt Count 248 D (160-400) X10*3/uL MPV 9.0 L (9.4-12.4) fL Immature Gran % (Auto) 0.4 (0.0-0.4) % Neut % (Auto) 69.6 (45-73) % Lymph % (Auto) 20.1 (20-40) % [place] % (Auto) 7.7 (2-11) % Eos % (Auto) 1.5 (0-4) % Baso % (Auto) 0.7 (0-2) % Lymph # (Auto) 2.3 (1.2-4.9) X10*3/uL [place] # (Auto) 0.9 (0.1-1.2) X10*3/uL Eos # (Auto) 0.2 (0.0-0.4) X10*3/uL Baso # (Auto) 0.1 (0.0-0.2) X10*3/uL Abs Immat Gran (auto) 0.05 H (0.00-0.03) X10*3/uL Absolute Neuts (auto) 7.9 (2.0-8.3) x10*3/uL Absolute Nucleated RBC 0.000 (0.0-0.012) X10*3/uL Nucleated RBC % (auto) 0.0 (0.0-0.2) /100WBC PT (10.0-13.1) SEC INR (0.9-1.1) Sodium 137 (135-145) mmol/L Potassium 4.8 (3.3-5.1) mmol/L Chloride 98 (96-108) mmol/L Carbon Dioxide 28 (22-29) mmol/L Anion Gap 16 (12-20) BUN 24 H (9-16) mg/dL Creatinine 1.46 H (0.5-1.4) mg/dL Estim Creat Clear Calc 53.9 Estimated GFR 49 Random Glucose 125 H (60-115) mg/dL Calcium 9.4 (8.4-10.2) mg/dL Magnesium 2.0 (1.6-2.6) mg/dL Total Bilirubin 0.7 (0.0-1.0) mg/dL AST 27 (5-37) U/L ALT 18 (0-40) U/L Alkaline Phosphatase 207 H (39-117) U/L Troponin I High Sens 8.7 (<3.5-35.0) ng/L Total Protein 8.9 H (6.5-8.0) g/dL Albumin 4.2 (3.5-5.0) g/dL 05/23/22 05/23/22 Range/Units 15:46 18:40 WBC (4.8-10.8) X10*3/uL RBC (4.60-5.80) X10*6/uL Hgb (14.0-18.0) g/dl Hct (42.0-52.0) % MCV (80.0-98.0) fL MCH (27.0-33.0) pg MCHC (31.0-36.0) g/dl RDW (11.0-16.0) % Plt Count (160-400) X10*3/uL MPV (9.4-12.4) fL Immature Gran % (Auto) (0.0-0.4) % Neut % (Auto) (45-73) % Lymph % (Auto) (20-40) % [place] % (Auto) (2-11) % Eos % (Auto) (0-4) % Baso % (Auto) (0-2) % Lymph # (Auto) (1.2-4.9) X10*3/uL [place] # (Auto) (0.1-1.2) X10*3/uL Eos # (Auto) (0.0-0.4) X10*3/uL Baso # (Auto) (0.0-0.2) X10*3/uL Abs Immat Gran (auto) (0.00-0.03) X10*3/uL Absolute Neuts (auto) (2.0-8.3) x10*3/uL Absolute Nucleated RBC (0.0-0.012) X10*3/uL Nucleated RBC % (auto) (0.0-0.2) /100WBC PT 11.5 (10.0-13.1) SEC INR 1.0 (0.9-1.1) Sodium (135-145) mmol/L Potassium (3.3-5.1) mmol/L Chloride (96-108) mmol/L Carbon Dioxide (22-29) mmol/L Anion Gap (12-20) BUN (9-16) mg/dL Creatinine (0.5-1.4) mg/dL Estim Creat Clear Calc Estimated GFR Random Glucose (60-115) mg/dL Calcium (8.4-10.2) mg/dL Magnesium (1.6-2.6) mg/dL Total Bilirubin (0.0-1.0) mg/dL AST (5-37) U/L ALT (0-40) U/L Alkaline Phosphatase (39-117) U/L Troponin I High Sens 8.9 (<3.5-35.0) ng/L Total Protein (6.5-8.0) g/dL Albumin (3.5-5.0) g/dL <Evan Lewis MD - Last Filed: 05/23/22 22:51> Independent Interpretation I performed an independent interpretation of an: EKG <Evan Lewis MD - Last Filed: 05/23/22 22:51> Interpretation: Normal sinus rhythm rate [address]-T changes <Evan Lewis MD - Last Filed: 05/23/22 22:51> External Record Review External record reviewed: Inpatient record <Evan Lewis MD - Last Filed: 05/23/22 22:51> Discharge Plan Discharge Clinical Impression: Chest pain <ADAN Lujan - Last Filed: 05/23/22 15:30> Patient Disposition: Home, Self-Care <ADAN Lujan - Last Filed: 05/23/22 15:30> Instructions: Chest Pain (DC) <ADAN Lujan - Last Filed: 05/23/22 15:30> Additional Instructions: Follow-up with your primary care physician tomorrow return to emergency room if you worse any concern <ADAN Lujan - Last Filed: 05/23/22 15:30> Prescriptions: No Action simethicone [Gas Relief (simethicone)] 180 mg capsule 180 mg PO BID PRN (Reason: abdominal distention) Qty: 60 3RF sennosides [Natural Senna Laxative] 8.6 mg tablet 17.2 mg PO BEDTIME Qty: 180 2RF spironolactone 25 mg tablet 1 tab PO BEDTIME paroxetine HCl 20 mg tablet 1 tab PO BEDTIME Jardiance 10 mg tablet 1 tab PO QAM doxycycline monohydrate 100 mg capsule 100 mg PO BID 10 Days Qty: 20 0RF cephalexin 500 mg capsule 500 mg PO Q8H 10 Days Qty: 30 0RF omeprazole 40 mg capsule,delayed release(DR/EC) 40 mg PO DAILY@0630 prazosin 1 mg capsule 1 mg PO BEDTIME PRN (Reason: nightmares) hydralazine 25 mg Tablet 25 mg PO BID Qty: 60 0RF Protocol: Hold for SBP< HOLD for SBP < : 90 furosemide 20 mg tablet 20 mg PO DAILY folic acid 1 mg tablet 1 mg PO DAILY thiamine HCl (vitamin B1) 100 mg tablet 100 mg PO DAILY Citrucel 500 mg tablet 500 mg PO DAILY Qty: 30 2RF Rx Instructions: take it with full glass of water (DME) Oxygen Home Use Kit See Rx Instructions .ROUTE Rx Instructions: As directed Combivent Respimat 20-100 mcg/actuation mist 1 puff inhalation QID 30 Days Qty: 4 11RF Rx Instructions: space evenly during waking hours carvedilol 3.125 mg tablet 3.125 mg PO BID (DME) blood-glucose meter [FreeStyle [place] Lite] Kit See Rx Instructions Not Applicable BID Qty: 1 Rx Instructions: As directed (DME) FreeStyle Lite Strips Strip See Rx Instructions Not Applicable BID Qty: 10 Rx Instructions: As directed (DME) lancets [TRUEplus Lancets] 33 gauge misc See Rx Instructions Not Applicable BID Qty: 100 Rx Instructions: As directed methadone 10 mg/mL concentrate 30 mg PO DAILY <ADAN Lujan - Last Filed: 05/23/22 15:30> Referrals: Nelly Bach MD [Primary Care Provider] - 1 day <ADAN Lujan - Last Filed: 05/23/22 15:30> Discharge Date/Time: 05/23/22 20:35 <ADAN Lujan - Last Filed: 05/23/22 15:30>
[2022-05-23 15:52] LABS: MANUAL DIFF FLAG NO
[2022-05-23 15:54] LABS: Basophils Absolute Auto 0.1 X10*3/uL (0.0-0.2); Basophils Percent Auto 0.7 % (0-2); Eosinophils Absolute Auto 0.2 X10*3/uL (0.0-0.4); Eosinophils Percent Auto 1.5 % (0-4); Hematocrit 44.1 % (42.0-52.0); Hemoglobin 13.8 g/dl (14.0-18.0); Imm Gran Abs Auto 0.05 X10*3/uL (0.00-0.03); Imm Gran Pct Auto 0.4 % (0.0-0.4); Lymphocytes Absolute Auto 2.3 X10*3/uL (1.2-4.9); Lymphocytes Percent Auto 20.1 % (20-40); Mean Corpuscular HGB Conc 31.3 g/dl (31.0-36.0); Mean Corpuscular Hemoglobin 27.9 pg (27.0-33.0); Mean Corpuscular Volume 89.1 fL (80.0-98.0); Monocytes Absolute Auto 0.9 X10*3/uL (0.1-1.2); Monocytes Percent Auto 7.7 % (2-11); Neutrophils Absolute Auto 7.9 x10*3/uL (2.0-8.3); Neutrophils Percent Auto 69.6 % (45-73); Platelet Count 248 X10*3/uL (160-400); Red Blood Count 4.95 X10*6/uL (4.60-5.80); Red Cell Distribution Width 15.9 % (11.0-16.0); White Blood Count 11.4 X10*3/uL (4.8-10.8)
[2022-05-23 16:00] LABS: Prothrombin Time 11.5 SEC (10.0-13.1)
[2022-05-23 16:09] LABS: Alanine Aminotransferase 18 U/L (0-40); Albumin Level 4.2 g/dL (3.5-5.0); Alkaline Phosphatase 207 U/L (39-117); Anion Gap 16 (12-20); Aspartate Amino Transferase 27 U/L (5-37); Bilirubin Total 0.7 mg/dL (0.0-1.0); Blood Urea Nitrogen 24 mg/dL (9-16); Calcium 9.4 mg/dL (8.4-10.2); Carbon Dioxide 28 mmol/L (22-29); Chloride 98 mmol/L (96-108); Creatinine Clr Calc Pharmacy 53.9; Estimated Glomerular Filt Rate 49; Glucose Random 125 mg/dL (60-115); Potassium 4.8 mmol/L (3.3-5.1); Sodium 137 mmol/L (135-145); Total Protein 8.9 g/dL (6.5-8.0)
[2022-05-23 16:16] LABS: Troponin-I High Sensitivity 8.7 ng/L (<3.5-35.0)
[2022-05-23] MEDS: Acetaminophen 325 MG TABLET 975 MG PO (19:13)
[2022-05-23 19:17] VITALS: BP 140/79; PULSE 65; RESP 23; TEMP 37.1; O2SAT 97
[2022-05-23 19:20] LABS: Troponin-I High Sensitivity 8.9 ng/L (<3.5-35.0)
--- NOTE | 2022-05-23 19:24 | PC.NURSE ---
Assumed care of patient. Patient alert and oriented. No apparent distress.
== END 2022-05-23 20:35 | disposition home or self-care (01) ==
PROVIDERS: Physician Assistant Medical; Emergency Provider Emergency Medicine; PCP Internal Medicine
DX: R07.89 Other chest pain (principal); Z79.899 Other long term (current) drug therapy
CPT/HCPCS: 36415; 71046; 80053; 83735; 84484; 85025; 85610; 93005; 99282; 99283; 99284

== ENCOUNTER → 2022-06-05 10:10 | Outpatient (BNVA) | payer MEDICAID, SELFPAY | PROVIDERS: PCP Internal Medicine; Visit Provider Internal Medicine Cardiovascular Disease | DX: I50.9 Heart failure, unspecified (principal); R42 Dizziness and giddiness; R00.1 Bradycardia, unspecified | CPT/HCPCS: 99212 ==

== ENCOUNTER → 2022-07-25 22:39 | Outpatient (REF) | payer MEDICAID, SELFPAY | LOC: HO.SL 22:39 | PROVIDERS: Visit Provider Hospitalist | DX: G47.33 Obstructive sleep apnea (adult) (pediatric) (principal) | CPT/HCPCS: 95811 ==

== ENCOUNTER → 2022-08-23 10:45 | Outpatient (BNVA) | payer MEDICAID, SELFPAY | PROVIDERS: PCP Internal Medicine; Visit Provider Hospitalist | DX: G47.33 Obstructive sleep apnea (adult) (pediatric) (principal); R06.00 Dyspnea, unspecified; J96.11 Chronic respiratory failure with hypoxia | CPT/HCPCS: 99212 ==

== ENCOUNTER 2022-11-22 16:36 | Inpatient (IN) | payer MEDICAID, SELFPAY ==
--- NOTE | ~2022-11-22 | CT_ITS ---
EXAMINATION: CT ANGIOGRAM OF THE CHEST WITH AND WITHOUT CONTRAST (CT PULMONARY ANGIOGRAM FOR PE) CLINICAL INFORMATION: Hypoxia. COMPARISON: CT chest 04/11/2022. TECHNIQUE: Prior to contrast administration, noncontrast localization images were obtained. Subsequently, multidetector volumetric imaging was performed from the thoracic inlet to below the diaphragms following the administration of 65 mL Omnipaque 350 intravenous contrast. No contrast reaction reported Sagittal, coronal, and MIP oblique sagittal reformatted images were obtained on the CT workstation, uploaded to PACS, and reviewed. This CT examination was performed using dose optimization techniques as appropriate, variously including the following: *Automated exposure control *Adjustment of mA and/or kV according to patient size (this includes techniques or standardized protocols for targeted exams where dose is matched to indication/reason for exam; i.e. extremities or head) *Use of iterative reconstruction technique Total exam dose-length product 320 mGy-cm FINDINGS: QUALITY OF STUDY/CONTRAST BOLUS: Suboptimal. PULMONARY ARTERIES: No central pulmonary emboli. Evaluation of segmental branches is very limited due to motion. THORACIC AORTA: No aneurysm. LUNG: Low lung volumes with mild diffuse bronchial wall thickening and minimal mosaic attenuation of lung parenchyma. No consolidation or significant groundglass disease. Central airways are patent. Evaluation of pulmonary nodules is very limited due to motion. PLEURA: No pleural effusion or pneumothorax. MEDIASTINUM: Enlarged heart. No pericardial effusion. No evidence of septal bowing or right heart strain. Right paratracheal mediastinal lymphadenopathy is unchanged. Normal appearance of the thyroid gland. CORONARY ARTERY CALCIFICATION: Coronary artery calcifications are visualized. CHEST WALL/AXILLA: Symmetric gynecomastia. No axillary lymphadenopathy. OSSEOUS STRUCTURES: Left-sided anterior third and fourth rib fractures with signs of healing. UPPER ABDOMEN: Enlarged cirrhotic and steatotic liver. No reflux of contrast into the hepatic veins to suggest elevated right heart pressures. CT/CT angio chest PE protocol IMPRESSION: 1. No central pulmonary emboli. Evaluation of segmental branches is very limited due to motion. 2. Low lung volumes with bronchial wall thickening and mosaic attenuation of the lung parenchyma which could be associated with an infectious or inflammatory process of the small airways. No focal consolidation. 3. Enlarged heart. 4. Enlarged cirrhotic and steatotic liver. VTE: negative
--- NOTE | ~2022-11-22 | XR_ITS ---
EXAMINATION: XR CHEST CLINICAL INFORMATION: Chest pain. COMPARISON: Chest radiograph 05/23/2022. TECHNIQUE: Frontal view of the chest was obtained. FINDINGS: Stable prominence of the cardiomediastinal silhouette. No focal airspace opacity, pleural effusion or pneumothorax. Redemonstration of subpleural thickening bilaterally in the lateral lungs, in keeping with prominent subpleural fat when correlated with CT chest from 04/11/2022. No acute osseous abnormalities. XR/XR chest 1V IMPRESSION: No acute cardiopulmonary findings.
--- NOTE | ~2022-11-22 | US_ITS ---
EXAMINATION: US VENOUS ULTRASOUND WITH DOPPLER LOWER EXTREMITY, BILATERAL CLINICAL INFORMATION: Bilateral lower extremity edema COMPARISON: Bilateral lower extremity venous duplex Doppler exam 10/04/2021 TECHNIQUE: Ultrasound of the deep veins is performed from the hip to the calf with compression sonography and color and pulse Doppler assessment. Spectral analysis with color-flow imaging is performed. FINDINGS: Exam limited by pitting edema. Neither the right nor the left peroneal vein in the calf are visualized. Posterior tibial veins below are patent bilaterally. RIGHT: There is normal venous compression and respiratory variation and augmented flow. The visualized common femoral vein, superficial femoral vein, profunda femoral vein, popliteal vein, and the trifurcation region shows no evidence of deep venous thrombosis. There is no significant popliteal fossa cyst. LEFT: There is normal venous compression and respiratory variation and augmented flow. The visualized common femoral vein, superficial femoral vein, profunda femoral vein, popliteal vein, and the trifurcation region shows no evidence of deep venous thrombosis. There is no significant popliteal fossa cyst. If the patient's symptoms persist, followup ultrasound in 5 days 7 days might be of value to exclude proximal propagation from a non-visualized calf vein. US/US venous duplex LE BI IMPRESSION: No DVT demonstrated in the bilateral lower extremity.
[2022-11-22 16:46] VITALS: BP 144/84; PULSE 78; RESP 20; TEMP 37.4; O2SAT 84; O2SAT 88; BMI 46.4
--- NOTE | 2022-11-22 17:06 | ECG_ITS ---
Test Reason : chest pain Blood Pressure : / mmHG Vent. Rate : 069 BPM Atrial Rate : 069 BPM P-R Int : 186 ms QRS Dur : 086 ms QT Int : 404 ms P-R-T Axes : 073 -15 024 degrees QTc Int : 432 ms Normal sinus rhythm Minimal voltage criteria for LVH, may be normal variant ( R in aVL ) Borderline ECG When compared with ECG of 23-MAY-2022 15:32, Premature atrial complexes are no longer Present Referred By: Pura Barros Electronically Signed By:DAVID HOWELL MD
--- NOTE | 2022-11-22 17:06 | ED.GENADULT ---
HPI - General Adult General Chief complaint: General Medical Stated complaint: right flank pain, warm to touch body pain, per ems Time Seen by Provider: 11/22/22 16:40 Source: patient and RN notes reviewed Mode of arrival: ambulatory Limitations: no limitations History of Present Illness HPI narrative: This is a 62-year-old male, with past medical history of hypertension, hyperlipidemia, diabetes, history of alcohol abuse, liver cirrhosis and ascites on diuretics, DARRIAN on CPAP at home, CKD, and chronic respiratory failure, presenting to the emergency department for worsening shortness of breaths over 3 weeks - worsening with ambulation, productive cough with white-colored sputum x3 weeks, lower extremity swelling and redness x4 days, and urinary problems for the last 2 days. Patient describes his current chest pain as a tightness, noted to have yesterday as a pressure-like left-sided chest pain that is intermittent and resolves after hitting his chest with his hand multiple times. He has had several episodes of this chest pain, this does not occur with ambulation and occurs at random. He denies any fevers, chills, headaches, visual changes, sore throat, palpitations, abdominal pain, nausea, vomiting, diarrhea, dysuria, hematuria, urinary frequency or urgency. He states that he is only urinating small amounts does not feel like he is fully emptying his bladder. He has been taking all his medications at home including his diuretics however this swelling in his legs is not improved. He states that he drinks alcohol every day typically drinks at least 6 nips per day reports that he last drink earlier today. History of alcohol withdrawal. MD complaint: Chest pain, shortness of breath, lower extremity edema Onset (ago): day(s) Location: lower extremity Radiation: non-radiation Quality: aching Pain Consistency: constant Relieving factors: none Exacerbating factors: none Associated symptoms: denies other symptoms Treatments prior to arrival: none Related Data Home Medications Medication Instructions Recorded Confirmed folic acid 1 mg tablet 1 mg PO DAILY 06/18/21 06/05/22 thiamine HCl (vitamin B1) 100 mg 100 mg PO DAILY 06/18/21 06/05/22 tablet blood sugar diagnostic (FreeStyle #10 ea 12/12/21 06/05/22 Lite Strips) blood-glucose meter (FreeStyle #1 ea 12/12/21 06/05/22 [place] Lite kit) carvedilol 3.125 mg tablet 3.125 mg PO BID 12/12/21 06/05/22 furosemide 20 mg tablet 20 mg PO DAILY 12/12/21 06/05/22 lancets 33 gauge (TRUEplus Lancets) #100 ea 12/12/21 06/05/22 prazosin 1 mg capsule 1 mg PO BEDTIME PRN nightmares 12/12/21 06/05/22 methadone 10 mg/mL oral concentrate 30 mg PO DAILY 02/20/22 06/05/22 empagliflozin 10 mg tablet 1 tab PO QAM 04/11/22 06/05/22 (Jardiance) paroxetine HCl 20 mg tablet 1 tab PO BEDTIME 04/11/22 06/05/22 spironolactone 25 mg tablet 1 tab PO BEDTIME 04/11/22 06/05/22 Oxygen Home Use 04/22/22 06/05/22 Previous Rx's Medication Instructions Recorded methylcellulose (laxative) 500 mg 500 mg PO DAILY #30 tabs 07/24/21 tablet (Citrucel) ipratropium 20 mcg-albuterol 100 1 puff inhalation QID 30 days #4 08/17/21 mcg/actuation mist for inhalation grams (Combivent Respimat) simethicone 180 mg capsule (Gas 180 mg PO BID PRN abdominal 10/12/21 Relief (simethicone)) distention #60 caps omeprazole 40 mg capsule,delayed 40 mg PO QAM #90 caps 07/29/22 release sennosides 8.6 mg tablet (Natural 17.2 mg PO BEDTIME constipation 08/14/22 Senna Laxative) #180 tabs Allergies Allergy/AdvReac Type Severity Reaction Status Date / Time aspirin [ASPIRIN] Allergy Unknown RASH Verified 08/23/22 10:57 ibuprofen Allergy Unknown nausea and Verified 08/23/22 10:57 vomiting Review of Systems Review of Systems: Constitutional: No Weight loss, No Fever, No Chills, No Night Sweats, No Fatigue, No Malaise ENT/Mouth: No Hearing loss, No Ear Pain, No Nasal Congestion, No Sinus Pain, No Hoarseness, No sore throat, No Rhinorrhea, No Swallowing Difficulty Eyes: No Eye Pain, No Swelling, No Redness, No Foreign Body, No Discharge, No Vision Changes Cardiovascular: + Chest Pain, + SOB, + Dyspnea on Exertion, + Orthopnea, + Edema, No Palpitations Respiratory: +Cough, + Sputum, No Wheezing, No Smoke Exposure, + Dyspnea Gastrointestinal: No Nausea, No Vomiting, No Diarrhea, No Constipation, No Abdominal pain, No Hematochezia, No Melena Genitourinary: No irregular bleeding, No Dysuria, No Urinary Frequency, No Hematuria, No Urinary Incontinence/retention, No Urgency, No Flank Pain, No Urinary Flow Changes, No Hesitancy Musculoskeletal: No joint pain, No Myalgias, No Joint Swelling Skin: No Skin Lesions, No rash Neuro: No Weakness, No Numbness, No Paresthesias, No Loss of Consciousness, No Dizziness, No Headache Psych: No Anxiety/Panic, No Depression, No SI/HI/AH/VH, No Social Issues, Heme/Lymph: No Bruising, No Bleeding,No Lymphadenopathy Endocrine: No Polyuria, No Polydipsia, No Temperature Intolerance Yes all other systems are reviewed and are negative Constitutional: Constitutional: Reports as per [facility] Past Medical History Attestation statement: The following information was validated with the patient. Medical History Chronic kidney disease Chronic respiratory failure CKD (chronic kidney disease) stage 3, GFR 30-59 ml/min Congestive heart failure Diabetes History of opiate therapy Liver cirrhosis Morbid obesity due to excess calories DARRIAN (obstructive sleep apnea) Family History Family History Mother Cancer Diabetes Social History Social History Household Members: Spouse Housing: Apartment Do you presently have visiting nurse or other home services: Yes Alcohol intake: current Alcohol intake frequency: 3 or more drinks per day Alcohol type: beer Patient Tobacco Use Status: Never used Tobacco Smoked in Last 30 Days: No e-Cigarette/Vaping Use: Never Used Substance Use Type: Heroin Advance Directives: No Advance Directives Information Provided: Yes service: No Current occupational status: disabled Physical Exam ED Vital Signs: Vital Signs - 24 hr 11/22/22 16:46 11/22/22 17:49 11/22/22 18:29 Temperature 99.3 F Pulse Rate 78 69 67 Respiratory Rate 20 20 19 Blood Pressure 144/84 H 124/68 128/74 Pulse Oximetry 84 L 95 94 Oxygen Delivery Method Room Air Nasal Cannula Nasal Cannula Oxygen Flow Rate 2 2 11/22/22 19:37 11/22/22 22:14 11/22/22 22:39 Temperature 98.9 F Pulse Rate 62 66 66 Respiratory Rate 19 18 19 Blood Pressure 159/66 H 153/80 H Pulse Oximetry 95 95 Oxygen Delivery Method Room Air Nasal Cannula Oxygen Flow Rate 2 11/22/22 22:39 Temperature Pulse Rate Respiratory Rate 18 Blood Pressure Pulse Oximetry Oxygen Delivery Method Oxygen Flow Rate BMI result Body Mass Index 46.4 Const General: cooperative, comfortable and no acute distress Orientation/consciousness: patient oriented x3 Limitations: no limitations HENMT Head: Yes normal to inspection, Yes normocephalic and Yes atraumatic Ears: hearing grossly normal bilaterally General nose exam: Normal external nose present Face and sinus: Yes normal facial exam Mouth: Normal oral and palatal mucosa present, oropharynx normal and moist mucous membranes Throat: Yes posterior oropharynx normal Eyes General: appearance normal, both eyes and all related structures Eyelids: Yes eyelids normal Conjunctivae: conjunctivae normal Sclerae: sclerae normal Pupils: Equal, round and reactive pupils present EOM: EOMs intact bilaterally Neck Neck: Yes normal visual inspection, Yes full ROM and Yes no lymphadenopathy Lymphatic: no lymphadenopathy noted Chest Chest palpation & inspection: normal inspection of the chest Resp Other: Diminished breath sounds noted in the bilateral bases, no wheezes, rales, or rhonchi appreciated Effort & Inspection: normal respiratory effort and able to speak in complete sentences Cardio Rate: regular rate Rhythm: regular rhythm Heart sounds: S1 normal heart sound present and S2 normal heart sound present GI Inspection: Yes normal to inspection Skin General skin exam: no rashes or lesions noted Trauma: no lacerations or abrasions Wounds: no wounds Neuro General: patient oriented x3 and moves all extremities Cranial nerves: Yes Equal, round and reactive pupils present Extrem Other: Bilateral lower extremities with circumferential erythema extending from bilateral malleoli extending just inferior to the bilateral knees. 2+ pitting edema noted. No open wounds or drainage. Patient has tenderness to palpation in bilateral calfs. DP pulses 2+, distal sensation circulation intact General: Yes normal to inspection Right upper extremity: normal to inspection Left upper extremity: normal to inspection Right lower extremity: normal to inspection Left lower extremity: normal to inspection Course Reevaluation(s) Reevaluation #1: BNP 183, alk-phos mildly elevated at 167, AST 43 BUN 19, patient has no leukocytosis, normocytic anemia with an H&H of 12.9 and 41, this appears to be chronic. Urine, ethyl alcohol in 39, patient medicated with Ativan 2 mg IV given patient was shaky. First troponin 16.3. CTA pending. Time: 21:01 Reevaluation #2: CTA returns revealing no pulmonary emboli, low lung volumes with bronchial wall thickening and mosaic attenuation of the lung parenchyma which could be associated with infectious or inflammatory process of the small airways. No focal consolidation, enlarged heart, enlarged cirrhotic and steatotic liver. Patient re-evaluated with Dr. Valladares at bedside, patient is audible wheezing, and was sleeping. Appears that he needs to be put on BiPAP. Given wheezing throughout lung dubose patient would benefit with Solu-Medrol 125, and duo nebulizer. VBG and repeat troponin ordered. Called respiratory therapy and are administering medications at this time. Time: 22:18 Reevaluation #3: Second troponin 14.5, negative delta. Patient appearing more comfortable after receiving up drive, Solu-Medrol, weaned off BiPAP to CPAP. Discussed case with hospitalist Dr. Martinez, who accepts transfer of care for COPD exacerbation Time: 00:13 Medications Administered Discontinued Medications Generic Name Dose Route Start Last Admin Trade Name Freq PRN Reason Stop Dose Admin Albuterol Sulfate 10 mg 11/22/22 22:23 11/23/22 00:06 Albuterol Sulfate (0.083%) 2.5 Mg/3 Ml Vial.Neb INHALE 11/22/22 22:24 Not Given ONCE ONE Albuterol Sulfate 7.5 mg/ 0 mg 11/22/22 22:24 11/22/22 22:38 Albuterol/Ipratropium 3 ml INHALE 11/22/22 22:25 1 each ONCE ONE Administration Furosemide 40 mg 11/22/22 19:25 11/22/22 19:35 Furosemide 40 Mg/4 Ml Vial IVPUSH 11/22/22 19:26 40 mg STAT STA Administration Protocol Iohexol 100 ml 11/22/22 20:07 11/22/22 20:08 Iohexol 350 Mg/Ml 100 Ml Infus..Btl IV 11/22/22 20:08 65 ml ONCE ONE Administration Lorazepam 2 mg 11/22/22 19:59 11/22/22 20:12 Lorazepam 2 Mg/Ml Vial IVPUSH 11/22/22 20:00 2 mg ONCE ONE Administration Lorazepam 2 mg 11/22/22 22:49 11/23/22 00:02 Lorazepam 1 Mg Tablet PO 11/22/22 22:50 2 mg ONCE ONE Administration Methylprednisolone Sodium Succinate 125 mg 11/22/22 22:24 11/22/22 22:30 Methylprednisolone Sod Succ 125 Mg/2 Ml Vial IVPUSH 11/22/22 22:25 125 mg ONCE ONE Administration Medical Decision Making Medical Decision Making MDM Narrative: 62-year-old male, with a past medical history of chronic kidney disease stage 4, congestive heart failure, diabetes, liver cirrhosis, DARRIAN, asthma, presenting to the emergency department for evaluation of bilateral lower extremity edema, shortness of breath, chest pain, and urinary retention. On arrival patient was satting at 84% on room air, patient placed on 1.5 L and now saturating at 94%. Blood pressure 144/84. Patient has notable bilateral lower extremity edema with overlying erythema - ? Peripheral edema secondary to acute exacerbation of congestive heart failure versus cellulitis. Patient is in no acute distress at this time. Plan: Chest x-ray, EKG, labs, phototypesetting equipment monitor, bladder scan Differential Diagnosis Differential Diagnoses: The differential diagnosis associated with the presentation includes Decompensated congestive heart failure, pneumonia, cellulitis, ACS, PE, COPD, respiratory failure Admission/Observation Consideration of admission/observation: Escalation of care including admission/observation considered Lab Data [facility] Lab Attestation statement: I reviewed the patient's lab results. 11/22/22 17:12 11/22/22 17:12 Labs: Lab Results 11/22/22 11/22/22 11/22/22 Range/Units 17:12 17:12 17:12 WBC 9.6 (4.8-10.8) X10*3/uL RBC 4.37 L (4.60-5.80) X10*6/uL Hgb 12.9 L (14.0-18.0) g/dl Hct 41.0 L (42.0-52.0) % MCV 93.8 (80.0-98.0) fL MCH 29.5 (27.0-33.0) pg MCHC 31.5 (31.0-36.0) g/dl RDW 15.5 (11.0-16.0) % Plt Count 188 (160-400) X10*3/uL MPV 9.4 (9.4-12.4) fL Immature Gran % (Auto) 0.4 (0.0-0.4) % Neut % (Auto) 68.9 (45-73) % Lymph % (Auto) 17.6 L (20-40) % [place] % (Auto) 9.9 (2-11) % Eos % (Auto) 2.6 (0-4) % Baso % (Auto) 0.6 (0-2) % Lymph # (Auto) 1.7 (1.2-4.9) X10*3/uL [place] # (Auto) 1.0 (0.1-1.2) X10*3/uL Eos # (Auto) 0.3 (0.0-0.4) X10*3/uL Baso # (Auto) 0.1 (0.0-0.2) X10*3/uL Abs Immat Gran (auto) 0.04 H (0.00-0.03) X10*3/uL Absolute Neuts (auto) 6.6 (2.0-8.3) x10*3/uL Absolute Nucleated RBC 0.000 (0.0-0.012) X10*3/uL Nucleated RBC % (auto) 0.0 (0.0-0.2) /100WBC PT (10.0-13.1) SEC INR (0.9-1.1) APTT (26.0-36.4) SEC VBG pH (7.32-7.43) VBG pCO2 mmHg VBG pO2 mmHg VBG HCO3 (22-26) mmol/L VBG O2 Saturation % VBG Base Excess mmol/L Sodium 137 (135-145) mmol/L Potassium 4.6 (3.3-5.1) mmol/L Chloride 98 (96-108) mmol/L Carbon Dioxide 27 (22-29) mmol/L Anion Gap 17 (12-20) BUN 19 H (9-16) mg/dL Creatinine 1.35 (0.5-1.4) mg/dL Estim Creat Clear Calc 64.8 Estimated GFR 54 Random Glucose 221 H (60-115) mg/dL Lactic Acid (0.5-2.0) mmol/L Calcium 9.6 (8.4-10.2) mg/dL Magnesium 2.0 (1.6-2.6) mg/dL Total Bilirubin 0.8 (0.0-1.0) mg/dL Direct Bilirubin 0.3 (0.0-0.5) mg/dL AST 43 H (5-37) U/L ALT 37 (0-40) U/L Alkaline Phosphatase 167 H (39-117) U/L Troponin I High Sens 16.3 D (<3.5-35.0) ng/L B-Natriuretic Peptide (<100) pg/mL Total Protein 8.4 H (6.5-8.0) g/dL Albumin 3.7 (3.5-5.0) g/dL Lipase 28 (8-78) U/L Urine Color Urine Appearance Urine pH (5.0-9.0) Ur Specific [place] (1.005-1.025) Urine Protein (Neg-Trace) mg/dL Urine Glucose (UA) (Negative) mg/dL Urine Ketones (Negative) mg/dL Urine Blood (Negative) Urine Nitrite (Negative) Ur Leukocyte Esterase (Negative) Ethyl Alcohol mg/dL Influenza Type A (PCR) (Negative) Influenza Type B (PCR) (Negative) RSV RNA Qual (PCR) (Negative) SARS-CoV-2 RNA (RT-PCR) (Negative) 11/22/22 11/22/22 11/22/22 Range/Units 17:12 17:12 17:12 WBC (4.8-10.8) X10*3/uL RBC (4.60-5.80) X10*6/uL Hgb (14.0-18.0) g/dl Hct (42.0-52.0) % MCV (80.0-98.0) fL MCH (27.0-33.0) pg MCHC (31.0-36.0) g/dl RDW (11.0-16.0) % Plt Count (160-400) X10*3/uL MPV (9.4-12.4) fL Immature Gran % (Auto) (0.0-0.4) % Neut % (Auto) (45-73) % Lymph % (Auto) (20-40) % [place] % (Auto) (2-11) % Eos % (Auto) (0-4) % Baso % (Auto) (0-2) % Lymph # (Auto) (1.2-4.9) X10*3/uL [place] # (Auto) (0.1-1.2) X10*3/uL Eos # (Auto) (0.0-0.4) X10*3/uL Baso # (Auto) (0.0-0.2) X10*3/uL Abs Immat Gran (auto) (0.00-0.03) X10*3/uL Absolute Neuts (auto) (2.0-8.3) x10*3/uL Absolute Nucleated RBC (0.0-0.012) X10*3/uL Nucleated RBC % (auto) (0.0-0.2) /100WBC PT 10.5 (10.0-13.1) SEC INR 0.9 (0.9-1.1) APTT 28.5 (26.0-36.4) SEC VBG pH (7.32-7.43) VBG pCO2 mmHg VBG pO2 mmHg VBG HCO3 (22-26) mmol/L VBG O2 Saturation % VBG Base Excess mmol/L Sodium (135-145) mmol/L Potassium (3.3-5.1) mmol/L Chloride (96-108) mmol/L Carbon Dioxide (22-29) mmol/L Anion Gap (12-20) BUN (9-16) mg/dL Creatinine (0.5-1.4) mg/dL Estim Creat Clear Calc Estimated GFR Random Glucose (60-115) mg/dL Lactic Acid 2.0 (0.5-2.0) mmol/L Calcium (8.4-10.2) mg/dL Magnesium (1.6-2.6) mg/dL Total Bilirubin (0.0-1.0) mg/dL Direct Bilirubin (0.0-0.5) mg/dL AST (5-37) U/L ALT (0-40) U/L Alkaline Phosphatase (39-117) U/L Troponin I High Sens (<3.5-35.0) ng/L B-Natriuretic Peptide 183 H (<100) pg/mL Total Protein (6.5-8.0) g/dL Albumin (3.5-5.0) g/dL Lipase (8-78) U/L Urine Color Urine Appearance Urine pH (5.0-9.0) Ur Specific [place] (1.005-1.025) Urine Protein (Neg-Trace) mg/dL Urine Glucose (UA) (Negative) mg/dL Urine Ketones (Negative) mg/dL Urine Blood (Negative) Urine Nitrite (Negative) Ur Leukocyte Esterase (Negative) Ethyl Alcohol mg/dL Influenza Type A (PCR) (Negative) Influenza Type B (PCR) (Negative) RSV RNA Qual (PCR) (Negative) SARS-CoV-2 RNA (RT-PCR) (Negative) 11/22/22 11/22/22 11/22/22 Range/Units 17:12 17:12 20:15 WBC (4.8-10.8) X10*3/uL RBC (4.60-5.80) X10*6/uL Hgb (14.0-18.0) g/dl Hct (42.0-52.0) % MCV (80.0-98.0) fL MCH (27.0-33.0) pg MCHC (31.0-36.0) g/dl RDW (11.0-16.0) % Plt Count (160-400) X10*3/uL MPV (9.4-12.4) fL Immature Gran % (Auto) (0.0-0.4) % Neut % (Auto) (45-73) % Lymph % (Auto) (20-40) % [place] % (Auto) (2-11) % Eos % (Auto) (0-4) % Baso % (Auto) (0-2) % Lymph # (Auto) (1.2-4.9) X10*3/uL [place] # (Auto) (0.1-1.2) X10*3/uL Eos # (Auto) (0.0-0.4) X10*3/uL Baso # (Auto) (0.0-0.2) X10*3/uL Abs Immat Gran (auto) (0.00-0.03) X10*3/uL Absolute Neuts (auto) (2.0-8.3) x10*3/uL Absolute Nucleated RBC (0.0-0.012) X10*3/uL Nucleated RBC % (auto) (0.0-0.2) /100WBC PT (10.0-13.1) SEC INR (0.9-1.1) APTT (26.0-36.4) SEC VBG pH (7.32-7.43) VBG pCO2 mmHg VBG pO2 mmHg VBG HCO3 (22-26) mmol/L VBG O2 Saturation % VBG Base Excess mmol/L Sodium (135-145) mmol/L Potassium (3.3-5.1) mmol/L Chloride (96-108) mmol/L Carbon Dioxide (22-29) mmol/L Anion Gap (12-20) BUN (9-16) mg/dL Creatinine (0.5-1.4) mg/dL Estim Creat Clear Calc Estimated GFR Random Glucose (60-115) mg/dL Lactic Acid (0.5-2.0) mmol/L Calcium (8.4-10.2) mg/dL Magnesium (1.6-2.6) mg/dL Total Bilirubin (0.0-1.0) mg/dL Direct Bilirubin (0.0-0.5) mg/dL AST (5-37) U/L ALT (0-40) U/L Alkaline Phosphatase (39-117) U/L Troponin I High Sens (<3.5-35.0) ng/L B-Natriuretic Peptide (<100) pg/mL Total Protein (6.5-8.0) g/dL Albumin (3.5-5.0) g/dL Lipase (8-78) U/L Urine Color Yellow Urine Appearance Clear Urine pH 6.0 (5.0-9.0) Ur Specific [place] 1.010 (1.005-1.025) Urine Protein Negative (Neg-Trace) mg/dL Urine Glucose (UA) Negative (Negative) mg/dL Urine Ketones Negative (Negative) mg/dL Urine Blood Negative (Negative) Urine Nitrite Negative (Negative) Ur Leukocyte Esterase Negative (Negative) Ethyl Alcohol 139 mg/dL Influenza Type A (PCR) NEGATIVE (Negative) Influenza Type B (PCR) NEGATIVE (Negative) RSV RNA Qual (PCR) NEGATIVE (Negative) SARS-CoV-2 RNA (RT-PCR) NEGATIVE (Negative) 11/22/22 11/22/22 Range/Units 22:26 22:28 WBC (4.8-10.8) X10*3/uL RBC (4.60-5.80) X10*6/uL Hgb (14.0-18.0) g/dl Hct (42.0-52.0) % MCV (80.0-98.0) fL MCH (27.0-33.0) pg MCHC (31.0-36.0) g/dl RDW (11.0-16.0) % Plt Count (160-400) X10*3/uL MPV (9.4-12.4) fL Immature Gran % (Auto) (0.0-0.4) % Neut % (Auto) (45-73) % Lymph % (Auto) (20-40) % [place] % (Auto) (2-11) % Eos % (Auto) (0-4) % Baso % (Auto) (0-2) % Lymph # (Auto) (1.2-4.9) X10*3/uL [place] # (Auto) (0.1-1.2) X10*3/uL Eos # (Auto) (0.0-0.4) X10*3/uL Baso # (Auto) (0.0-0.2) X10*3/uL Abs Immat Gran (auto) (0.00-0.03) X10*3/uL Absolute Neuts (auto) (2.0-8.3) x10*3/uL Absolute Nucleated RBC (0.0-0.012) X10*3/uL Nucleated RBC % (auto) (0.0-0.2) /100WBC PT (10.0-13.1) SEC INR (0.9-1.1) APTT (26.0-36.4) SEC VBG pH 7.42 (7.32-7.43) VBG pCO2 56 mmHg VBG pO2 82 mmHg VBG HCO3 37 H (22-26) mmol/L VBG O2 Saturation 96.0 % VBG Base Excess 10.6 mmol/L Sodium (135-145) mmol/L Potassium (3.3-5.1) mmol/L Chloride (96-108) mmol/L Carbon Dioxide (22-29) mmol/L Anion Gap (12-20) BUN (9-16) mg/dL Creatinine (0.5-1.4) mg/dL Estim Creat Clear Calc Estimated GFR Random Glucose (60-115) mg/dL Lactic Acid (0.5-2.0) mmol/L Calcium (8.4-10.2) mg/dL Magnesium (1.6-2.6) mg/dL Total Bilirubin (0.0-1.0) mg/dL Direct Bilirubin (0.0-0.5) mg/dL AST (5-37) U/L ALT (0-40) U/L Alkaline Phosphatase (39-117) U/L Troponin I High Sens 14.5 (<3.5-35.0) ng/L B-Natriuretic Peptide (<100) pg/mL Total Protein (6.5-8.0) g/dL Albumin (3.5-5.0) g/dL Lipase (8-78) U/L Urine Color Urine Appearance Urine pH (5.0-9.0) Ur Specific [place] (1.005-1.025) Urine Protein (Neg-Trace) mg/dL Urine Glucose (UA) (Negative) mg/dL Urine Ketones (Negative) mg/dL Urine Blood (Negative) Urine Nitrite (Negative) Ur Leukocyte Esterase (Negative) Ethyl Alcohol mg/dL Influenza Type A (PCR) (Negative) Influenza Type B (PCR) (Negative) RSV RNA Qual (PCR) (Negative) SARS-CoV-2 RNA (RT-PCR) (Negative) Independent Interpretation I performed an independent interpretation of an: EKG Interpretation: Vent. Rate : 069 BPM ? ? Atrial Rate : 069 BPM ?? P-R Int : 186 ms? QRS Dur : 086 ms ? ? QT Int : 404 ms ? ? ? P-R-T Axes : 073 -15 024 degrees ?? QTc Int : 432 ms ? Normal sinus rhythm Minimal voltage criteria for LVH, may be normal variant ( R in aVL ) Borderline ECG When compared with ECG of 23-MAY-2022 15:32, Premature atrial complexes are no longer Present Radiology Impression Discussion of test interpretation with radiology: I have reviewed the radiologist's reading. Radiologist Impression: CLINICAL INFORMATION: Hypoxia. COMPARISON: CT chest 04/11/2022.? ? TECHNIQUE: Prior to contrast administration, noncontrast localization images were obtained. Subsequently, multidetector volumetric imaging was performed from the thoracic inlet to below the diaphragms following the administration of 65 mL Omnipaque 350 intravenous contrast. No contrast reaction reported Sagittal, coronal, and MIP oblique sagittal reformatted images were obtained on the CT workstation, uploaded to PACS, and reviewed. This CT examination was performed using dose optimization techniques as appropriate, variously including the following: *Automated exposure control *Adjustment of mA and/or kV according to patient size (this includes techniques or standardized protocols for targeted exams where dose is matched to indication/reason for exam; i.e. extremities or head) *Use of iterative reconstruction technique Total exam dose-length product 320 mGy-cm FINDINGS: QUALITY OF STUDY/CONTRAST BOLUS: Suboptimal. PULMONARY ARTERIES: No central pulmonary emboli. Evaluation of segmental branches is very limited due to motion.? THORACIC AORTA: No aneurysm. LUNG: Low lung volumes with mild diffuse bronchial wall thickening and minimal mosaic attenuation of lung parenchyma. No consolidation or significant groundglass disease. Central airways are patent. Evaluation of pulmonary nodules is very limited due to motion. PLEURA: No pleural effusion or pneumothorax. MEDIASTINUM: Enlarged heart. No pericardial effusion.? No evidence of septal bowing or right heart strain. Right paratracheal mediastinal lymphadenopathy is unchanged. Normal appearance of the thyroid gland. CORONARY ARTERY CALCIFICATION: Coronary artery calcifications are visualized. CHEST WALL/AXILLA: Symmetric gynecomastia. No axillary lymphadenopathy. OSSEOUS STRUCTURES: Left-sided anterior third and fourth rib fractures with signs of healing.? UPPER ABDOMEN: Enlarged cirrhotic and steatotic liver.? No reflux of contrast into the hepatic veins to suggest elevated right heart pressures. CT/CT angio chest PE protocol IMPRESSION: 1.? No central pulmonary emboli. Evaluation of segmental branches is very limited due to motion. 2.? Low lung volumes with bronchial wall thickening and mosaic attenuation of the lung parenchyma which could be associated with an infectious or inflammatory process of the small airways. No focal consolidation. 3.? Enlarged heart. 4.? Enlarged cirrhotic and steatotic liver. ? VTE: negative Dictated By: Antonia Chino Signed By: <Electronically signed by Antonia? [place] in [place]> 11/22/222053 DD/ 04 TD/TT:? 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 US VENOUS ULTRASOUND WITH DOPPLER LOWER EXTREMITY, BILATERAL CLINICAL INFORMATION:? Bilateral lower extremity edema COMPARISON:? Bilateral lower extremity venous duplex Doppler exam 10/04/2021 TECHNIQUE: Ultrasound of the deep veins is performed from the hip to the calf with compression sonography and color and pulse Doppler assessment. Spectral analysis with color-flow imaging is performed. FINDINGS: Exam limited by pitting edema. Neither the right nor the left peroneal vein in the calf are visualized. Posterior tibial veins below are patent bilaterally. RIGHT: There is normal venous compression and respiratory variation and augmented flow. The visualized common femoral vein, superficial femoral vein, profunda femoral vein, popliteal vein, and the trifurcation region shows no evidence of deep venous thrombosis. ? There is no significant popliteal fossa cyst. LEFT: There is normal venous compression and respiratory variation and augmented flow. The visualized common femoral vein, superficial femoral vein, profunda femoral vein, popliteal vein, and the trifurcation region shows no evidence of deep venous thrombosis. ? There is no significant popliteal fossa cyst. If the patient's symptoms persist, followup ultrasound in 5 days 7 days might be of value to exclude proximal propagation from a non-visualized calf vein. US/US venous duplex LE BI IMPRESSION: No DVT demonstrated in the bilateral lower extremity. Dictated By: Neeraj Tao MD Signed By: <Electronically signed by Neeraj Tao MD in [place]> 11/22/221756 DD/ 37 TD/TT:? Senior Principal Software Engineer: BA EXAMINATION: XR CHEST CLINICAL INFORMATION: Chest pain. COMPARISON: Chest radiograph 05/23/2022. TECHNIQUE: Frontal view of the chest was obtained. FINDINGS: Stable prominence of the cardiomediastinal silhouette. No focal airspace opacity, pleural effusion or pneumothorax. Redemonstration of subpleural thickening bilaterally in the lateral lungs, in keeping with prominent subpleural fat when correlated with CT chest from 04/11/2022. No acute osseous abnormalities. XR/XR chest 1V IMPRESSION: No acute cardiopulmonary findings. Dictated By: Antonia Chino Signed By: <Electronically signed by Shilpa Chino in [place]> 11/22/221728 DD/ 21 TD/TT:? Senior Principal Software Engineer: Independent Historian Clinical information obtained from an independent historian. History obtained from or confirmed by: EMS External Record Review External record reviewed: Inpatient record, Office record, Outpatient record, Prior outpatient labs, Prior outpatient radiology, Primary care record and Outside ED record Chronic Conditions Patient?s care impacted by: Diabetes and Hypertension Scores Heart Score History: -0- slightly suspicious Risk factory: -2- 3 or more risk factors or treated atherosclerosis Critical Care Time Critical Care Time Critical Care Time: Yes Total Critical Care Time: 60 Attestation: I have personally provided critical care time exclusive of time spent on separately billable procedures. Time includes review of lab data, radiology results, discussion with consultants, and monitoring for potential decompensation. Intervention performed as documented. Discharge Plan Discharge Clinical Impression: COPD exacerbation Patient Disposition: Admitted As Inpatient
[2022-11-22 17:21] LABS: MANUAL DIFF FLAG NO
[2022-11-22 17:25] LABS: Basophils Absolute Auto 0.1 X10*3/uL (0.0-0.2); Basophils Percent Auto 0.6 % (0-2); Eosinophils Absolute Auto 0.3 X10*3/uL (0.0-0.4); Eosinophils Percent Auto 2.6 % (0-4); Hemoglobin 12.9 g/dl (14.0-18.0); Imm Gran Abs Auto 0.04 X10*3/uL (0.00-0.03); Imm Gran Pct Auto 0.4 % (0.0-0.4); Lymphocytes Absolute Auto 1.7 X10*3/uL (1.2-4.9); Lymphocytes Percent Auto 17.6 % (20-40); Mean Corpuscular HGB Conc 31.5 g/dl (31.0-36.0); Mean Corpuscular Hemoglobin 29.5 pg (27.0-33.0); Mean Corpuscular Volume 93.8 fL (80.0-98.0); Mean Platelet Volume 9.4 fL (9.4-12.4); Monocytes Percent Auto 9.9 % (2-11); Neutrophils Absolute Auto 6.6 x10*3/uL (2.0-8.3); Neutrophils Percent Auto 68.9 % (45-73); Platelet Count 188 X10*3/uL (160-400); Red Blood Count 4.37 X10*6/uL (4.60-5.80); Red Cell Distribution Width 15.5 % (11.0-16.0); White Blood Count 9.6 X10*3/uL (4.8-10.8)
[2022-11-22 17:27] LABS: INTERNATIONAL NORM RATIO 0.9 (0.9-1.1); Prothrombin Time 10.5 SEC (10.0-13.1)
[2022-11-22 17:30] LABS: Partial Thromboplastin Time 28.5 SEC (26.0-36.4)
[2022-11-22 17:46] LABS: Ethanol 139 mg/dL
[2022-11-22 17:48] LABS: Alanine Aminotransferase 37 U/L (0-40); Albumin Level 3.7 g/dL (3.5-5.0); Alkaline Phosphatase 167 U/L (39-117); Anion Gap 17 (12-20); Aspartate Amino Transferase 43 U/L (5-37); Bilirubin Direct 0.3 mg/dL (0.0-0.5); Bilirubin Total 0.8 mg/dL (0.0-1.0); Blood Urea Nitrogen 19 mg/dL (9-16); Calcium 9.6 mg/dL (8.4-10.2); Carbon Dioxide 27 mmol/L (22-29); Chloride 98 mmol/L (96-108); Creatinine Clr Calc Pharmacy 64.8; Estimated Glomerular Filt Rate 54; Glucose Random 221 mg/dL (60-115); Lipase 28 U/L (8-78); Potassium 4.6 mmol/L (3.3-5.1); Sodium 137 mmol/L (135-145); Total Protein 8.4 g/dL (6.5-8.0)
[2022-11-22 17:49] VITALS: BP 124/68; PULSE 69; RESP 20; O2SAT 95
[2022-11-22 17:52] LABS: B Type Natriuretic Peptide 183 pg/mL (<100)
[2022-11-22 17:58] LABS: Troponin-I High Sensitivity 16.3 ng/L (<3.5-35.0)
[2022-11-22 18:29] VITALS: BP 128/74; PULSE 67; RESP 19; O2SAT 94
[2022-11-22 18:40] LABS: Influenza A PCR NEGATIVE (Negative); Influenza B PCR NEGATIVE (Negative); Resp Syncy Virus RNA Qual PCR NEGATIVE (Negative); SARS COV2 PCR INHOUSE NEGATIVE (Negative)
[2022-11-22] MEDS: Furosemide 40 MG/4 ML VIAL IVPUSH (19:35)
[2022-11-22 19:37] VITALS: BP 159/66; PULSE 62; RESP 19; O2SAT 95
[2022-11-22] MEDS: iohexoL 350 MG/ML 100 ML INFUS..BTL IV (20:08)
[2022-11-22] MEDS: LORazepam 2 MG/ML VIAL IVPUSH (20:12)
[2022-11-22 20:21] LABS: Appearance Urine Clear; Color Urine Yellow; Glucose Urine UA Negative (Negative); Leukocyte Esterase Urine Negative (Negative); Nitrite Urine Negative (Negative); Urine Blood Negative (Negative); Urine Ketones Negative (Negative); Urine Protein Negative (Neg-Trace)
[2022-11-22 22:14] VITALS: BP 153/80; PULSE 66; RESP 18; TEMP 37.2; O2SAT 95
[2022-11-22] MEDS: methylPREDNISolone Sod Succ 125 MG/2 ML VIAL IVPUSH (22:30)
[2022-11-22 22:36] LABS: VBG Base Excess 10.6 mmol/L; VBG HCO3 37 mmol/L (22-26); VBG pCO2 56 mmHg; VBG pH 7.42 (7.32-7.43); VBG pO2 82 mmHg
[2022-11-22 22:37] LABS: Venous Blood Gas Refer to POC result
[2022-11-22 22:39] VITALS: PULSE 65; PULSE 66; RESP 18; RESP 19; O2SAT 94; O2SAT 96
[2022-11-22 22:53] LABS: Troponin-I High Sensitivity 14.5 ng/L (<3.5-35.0)
--- NOTE | 2022-11-22 23:54 | PM.IMHP ---
History of Present Illness Date of Service: 11/22/22 Chief Complaint: shortness of breath this is a 62-year-old male past medical history of hypertension, HLD, diabetes, history of alcohol abuse, liver cirrhosis complicated by ascites on diuretics, with SA on CPAP, CKD, and chronic respiratory failure, comes into the hospital with complaints of shortness of breath. Patient is on BiPAP, somnolent after receiving Ativan for respiratory distress, on therefore not a good historian. She is obtained from ED provider. Patient reports that shortness of breath been going on for 3 weeks, worse on ambulation, has increased cough, and increased sputum production. Patient also has lower extremity redness with swelling. Unable to get review of system. on arrival to the ED patient found to be hypoxic satting 84% on room air. Patient initially placed on nasal cannula, but was then switched to BiPAP and is now on CPAP satting in the 90s. His vitals otherwise stable Labs are significant for WBC count of 9.6, hemoglobin of 12.9, hematocrit 41, pH of 7.42, CO2 56, bicarb of 27, creatinine of 1.35 which is around his baseline, BNP of 183, troponin of 16.3 that decreased, UA negative, influenza, COVID, and RSV negative chest CT angiogram negative for acute PE, low lung volumes with bronchial wall thickening and mosaic attenuation of the lung parenchyma which could be associated with infection or inflammatory process of small airways, no focal consolidation. patient treated for COPD exacerbation will be admitted for further management Review of Systems Review of Systems: Yes all other systems are reviewed and are negative [facility] Medical History (Updated 11/23/22 @ 06:44 by Gerald Martinez MD) Acute respiratory failure with hypoxia Chronic kidney disease Chronic respiratory failure CKD (chronic kidney disease) stage 3, GFR 30-59 ml/min Congestive heart failure Diabetes History of opiate therapy Liver cirrhosis Morbid obesity due to excess calories DARRIAN (obstructive sleep apnea) Family History Mother Cancer Diabetes Social History Household Members: Spouse Housing: Apartment Do you presently have visiting nurse or other home services: Yes Alcohol intake: current Alcohol intake frequency: 3 or more drinks per day Alcohol type: beer Patient Tobacco Use Status: Never used Tobacco Smoked in Last 30 Days: No e-Cigarette/Vaping Use: Never Used Substance Use Type: Heroin Advance Directives: No Advance Directives Information Provided: Yes service: No Current occupational status: disabled Meds Allergies Allergy/AdvReac Type Severity Reaction Status Date / Time aspirin [ASPIRIN] Allergy Unknown RASH Verified 08/23/22 10:57 ibuprofen Allergy Unknown nausea and Verified 08/23/22 10:57 vomiting Active Medications: Current Medications Lorazepam (Lorazepam 1 Mg Tablet) 1 mg PO Q4H PRN PRN Reason: Breakthrough alcohol withdrawa Stop: 11/26/22 22:48 Lorazepam (Lorazepam 1 Mg Tablet) 1 mg PO Q4H THAI; Taper Stop: 11/27/22 00:59 Home Medications Medication Instructions Recorded Confirmed Last Taken Type folic acid 1 mg tablet 1 mg PO DAILY 06/18/21 06/05/22 10/30/21 History thiamine HCl (vitamin B1) 100 mg 100 mg PO DAILY 06/18/21 06/05/22 10/30/21 History tablet blood sugar diagnostic (FreeStyle #10 ea 12/12/21 06/05/22 Unknown History Lite Strips) blood-glucose meter (FreeStyle #1 ea 12/12/21 06/05/22 Unknown History [place] Lite kit) carvedilol 3.125 mg tablet 3.125 mg PO BID 12/12/21 06/05/22 Unknown History furosemide 20 mg tablet 20 mg PO DAILY 12/12/21 06/05/22 Unknown History lancets 33 gauge (TRUEplus Lancets) #100 ea 12/12/21 06/05/22 Unknown History prazosin 1 mg capsule 1 mg PO BEDTIME PRN nightmares 12/12/21 06/05/22 Unknown History methadone 10 mg/mL oral concentrate 30 mg PO DAILY 02/20/22 06/05/22 Unknown History empagliflozin 10 mg tablet 1 tab PO QAM 04/11/22 06/05/22 Unknown History (Jardiance) paroxetine HCl 20 mg tablet 1 tab PO BEDTIME 04/11/22 06/05/22 Unknown History spironolactone 25 mg tablet 1 tab PO BEDTIME 04/11/22 06/05/22 Unknown History Oxygen Home Use 04/22/22 06/05/22 Unknown History Physical Exam Vital Signs and Narrative: Vital Signs: Last Vital Signs Temp 98.9 F 11/22/22 22:14 Pulse 66 11/22/22 22:39 Resp 18 11/22/22 22:39 BP 153/80 H 11/22/22 22:14 Pulse Ox 95 11/22/22 22:14 O2 Del Method Nasal Cannula 11/22/22 22:14 O2 Flow Rate 2 11/22/22 22:14 BMI result Body Mass Index 46.4 Const: Other: Patient is somnolent but arousable, on CPAP, tolerating it well General: cooperative and no acute distress Eyes: General: appearance normal, both eyes and all related structures Resp: Other: on BIAPA, being swtiched to CPAP. normal respiratory effort, no longer in respiratory distress Cardio: Rate: regular rate Rhythm: regular rhythm GI: Palpation (GI): Soft to palpation Auscultation: normal bowel sounds Skin: Other: erythema both extremities, no warmth, no tenderness, edema General skin exam: no rashes or lesions noted Neuro: Cognition (Neuro): normal cognition Extrem: Other: lower extremity edema, 2+, erythema Results Labs 11/22/22 17:12 11/22/22 17:12 Labs: Laboratory Results - last 24 hr 11/22/22 11/22/22 11/22/22 17:12 17:12 17:12 MCV 93.8 MCH 29.5 MCHC 31.5 RDW 15.5 Plt Count 188 MPV 9.4 Immature Gran % (Auto) 0.4 Neut % (Auto) 68.9 Lymph % (Auto) 17.6 L [place] % (Auto) 9.9 Eos % (Auto) 2.6 Baso % (Auto) 0.6 Lymph # (Auto) 1.7 [place] # (Auto) 1.0 Eos # (Auto) 0.3 Baso # (Auto) 0.1 Abs Immat Gran (auto) 0.04 H Absolute Neuts (auto) 6.6 Absolute Nucleated RBC 0.000 Nucleated RBC % (auto) 0.0 PT INR APTT VBG pH VBG pCO2 VBG pO2 VBG HCO3 VBG O2 Saturation VBG Base Excess Anion Gap 17 Estim Creat Clear Calc 64.8 Estimated GFR 54 Random Glucose 221 H Lactic Acid Calcium 9.6 Magnesium 2.0 Total Bilirubin 0.8 Direct Bilirubin 0.3 AST 43 H ALT 37 Alkaline Phosphatase 167 H Troponin I High Sens 16.3 D B-Natriuretic Peptide Total Protein 8.4 H Albumin 3.7 Lipase 28 Urine Color Urine Appearance Urine pH Ur Specific Turner Urine Protein Urine Glucose (UA) Urine Ketones Urine Blood Urine Nitrite Ur Leukocyte Esterase Ethyl Alcohol Influenza Type A (PCR) Influenza Type B (PCR) RSV RNA Qual (PCR) SARS-CoV-2 RNA (RT-PCR) 11/22/22 11/22/22 11/22/22 17:12 17:12 17:12 MCV MCH MCHC RDW Plt Count MPV Immature Gran % (Auto) Neut % (Auto) Lymph % (Auto) [place] % (Auto) Eos % (Auto) Baso % (Auto) Lymph # (Auto) [place] # (Auto) Eos # (Auto) Baso # (Auto) Abs Immat Gran (auto) Absolute Neuts (auto) Absolute Nucleated RBC Nucleated RBC % (auto) PT 10.5 INR 0.9 APTT 28.5 VBG pH VBG pCO2 VBG pO2 VBG HCO3 VBG O2 Saturation VBG Base Excess Anion Gap Estim Creat Clear Calc Estimated GFR Random Glucose Lactic Acid 2.0 Calcium Magnesium Total Bilirubin Direct Bilirubin AST ALT Alkaline Phosphatase Troponin I High Sens B-Natriuretic Peptide 183 H Total Protein Albumin Lipase Urine Color Urine Appearance Urine pH Ur Specific Turner Urine Protein Urine Glucose (UA) Urine Ketones Urine Blood Urine Nitrite Ur Leukocyte Esterase Ethyl Alcohol Influenza Type A (PCR) Influenza Type B (PCR) RSV RNA Qual (PCR) SARS-CoV-2 RNA (RT-PCR) 11/22/22 11/22/22 11/22/22 17:12 17:12 20:15 MCV MCH MCHC RDW Plt Count MPV Immature Gran % (Auto) Neut % (Auto) Lymph % (Auto) [place] % (Auto) Eos % (Auto) Baso % (Auto) Lymph # (Auto) [place] # (Auto) Eos # (Auto) Baso # (Auto) Abs Immat Gran (auto) Absolute Neuts (auto) Absolute Nucleated RBC Nucleated RBC % (auto) PT INR APTT VBG pH VBG pCO2 VBG pO2 VBG HCO3 VBG O2 Saturation VBG Base Excess Anion Gap Estim Creat Clear Calc Estimated GFR Random Glucose Lactic Acid Calcium Magnesium Total Bilirubin Direct Bilirubin AST ALT Alkaline Phosphatase Troponin I High Sens B-Natriuretic Peptide Total Protein Albumin Lipase Urine Color Yellow Urine Appearance Clear Urine pH 6.0 Ur Specific Turner 1.010 Urine Protein Negative Urine Glucose (UA) Negative Urine Ketones Negative Urine Blood Negative Urine Nitrite Negative Ur Leukocyte Esterase Negative Ethyl Alcohol 139 Influenza Type A (PCR) NEGATIVE Influenza Type B (PCR) NEGATIVE RSV RNA Qual (PCR) NEGATIVE SARS-CoV-2 RNA (RT-PCR) NEGATIVE 11/22/22 11/22/22 22:26 22:28 MCV MCH MCHC RDW Plt Count MPV Immature Gran % (Auto) Neut % (Auto) Lymph % (Auto) [place] % (Auto) Eos % (Auto) Baso % (Auto) Lymph # (Auto) [place] # (Auto) Eos # (Auto) Baso # (Auto) Abs Immat Gran (auto) Absolute Neuts (auto) Absolute Nucleated RBC Nucleated RBC % (auto) PT INR APTT VBG pH 7.42 VBG pCO2 56 VBG pO2 82 VBG HCO3 37 H VBG O2 Saturation 96.0 VBG Base Excess 10.6 Anion Gap Estim Creat Clear Calc Estimated GFR Random Glucose Lactic Acid Calcium Magnesium Total Bilirubin Direct Bilirubin AST ALT Alkaline Phosphatase Troponin I High Sens 14.5 B-Natriuretic Peptide Total Protein Albumin Lipase Urine Color Urine Appearance Urine pH Ur Specific Turner Urine Protein Urine Glucose (UA) Urine Ketones Urine Blood Urine Nitrite Ur Leukocyte Esterase Ethyl Alcohol Influenza Type A (PCR) Influenza Type B (PCR) RSV RNA Qual (PCR) SARS-CoV-2 RNA (RT-PCR) Imaging Radiologist's Impressions: Impressions Chest X-Ray 11/22/22 17:22 IMPRESSION: No acute cardiopulmonary findings. Venous Duplex 11/22/22 17:38 IMPRESSION: No DVT demonstrated in the bilateral lower extremity. Chest CTA 11/22/22 20:05 IMPRESSION: 1. No central pulmonary emboli. Evaluation of segmental branches is very limited due to motion. 2. Low lung volumes with bronchial wall thickening and mosaic attenuation of the lung parenchyma which could be associated with an infectious or inflammatory process of the small airways. No focal consolidation. 3. Enlarged heart. 4. Enlarged cirrhotic and steatotic liver. VTE: negative Assessment and Plan (1) Acute respiratory failure with hypoxia: Status: Resolved (2) COPD with acute exacerbation: Status: Acute Plan 62-year-old male past medical history of COPD, DARRIAN, as well as alcohol abuse who presents to the hospital will complaints of shortness of breath found to have acute hypoxic respiratory failure # acute hypoxic respiratory failure - likely multifactorial in the setting of DARRIAN, as well as COPD, as well as possible pneumonia as seen on imaging - patient will be treated with O2/CPAP at bedtime - monitor respiratory status, monitor oxygen requirements, wean off oxygen as tolerated # acute COPD exacerbation - dyspnea, cough, increased sputum production - will treat with DuoNeb p.r.n., scheduled, Solu-Medrol - monitor respiratory status - no evidence of acute retention at this time, pH within normal # pneumonia? has evidence of possible small airway disease on imaging - will treat with IV antibiotics - follow cultures # lower extremity edema - no evidence of CHF exacerbation - venous duplex negative - although has erythema, edema, this is bilateral making cellulitis less likely - begin antibiotics for above which will cover cellulitis - follow cultures DVT prophylaxis: Lovenox Given need for acute oxygen, patient require minimum 2 nights inpatient hospital stay for further management and monitoring Time Spent With Patient Time: Total time managing care of this patient today ____ minutes. Quality Stroke Does the patient have a stroke diagnosis?: No VTE Prior VTE?: No VTE Risk Level:: Medical - moderate - high VTE Device Contraindication: Treatment Not Indicated VTE Drug Contraindication: N/A - Med Ordered
[2022-11-23] VITALS (10 sets, daily range): BP systolic 132–165; BP diastolic 84–98; PULSE 56–71; RESP 15–25; TEMP 36.1–37; O2SAT 92–96; BMI 45.1
[2022-11-23] MEDS: LORazepam 1 MG TABLET 2 MG PO (00:02)
[2022-11-23 00:13] LABS: Venous Blood Gas Refer to POC result
[2022-11-23 00:16] LABS: VBG HCO3 34 mmol/L (22-26); VBG pCO2 56 mmHg; VBG pH 7.39 (7.32-7.43); VBG pO2 67 mmHg
[2022-11-23 00:29] LABS: Troponin-I High Sensitivity 15.5 ng/L (<3.5-35.0)
[2022-11-23] MEDS: 0.9 % Sodium Chloride Flush 3 ML SYRINGE IVFLUSH ×4 (00:43→21:36)
[2022-11-23] MEDS: levoFLOXacin/D5W 500 MG/100 ML PIGGYBACK 100 MG IV (00:54)
--- NOTE | 2022-11-23 01:57 | PC.NURSE ---
RT contacted at this time to evaluate CPAP alarms, RT not concerned with pt status at this time. Pulse ox WNL. Will continue to monitor at this time.
--- NOTE | 2022-11-23 04:05 | PC.NURSE ---
Pt placed in hospital bed for comfort at this time
[2022-11-23] MEDS: Acetaminophen 325 MG TABLET 650 MG PO (04:12)
[2022-11-23] MEDS: LORazepam 1 MG TABLET PO ×2 (04:12→08:02)
[2022-11-23 06:35] LABS: Basophils Percent Auto 0.3 % (0-2); Hematocrit 41.9 % (42.0-52.0); Hemoglobin 13.2 g/dl (14.0-18.0); Imm Gran Abs Auto 0.02 X10*3/uL (0.00-0.03); Imm Gran Pct Auto 0.3 % (0.0-0.4); Lymphocytes Absolute Auto 0.4 X10*3/uL (1.2-4.9); Lymphocytes Percent Auto 4.6 % (20-40); MANUAL DIFF FLAG SCAN; Mean Corpuscular HGB Conc 31.5 g/dl (31.0-36.0); Mean Corpuscular Hemoglobin 29.5 pg (27.0-33.0); Mean Corpuscular Volume 93.7 fL (80.0-98.0); Mean Platelet Volume 9.7 fL (9.4-12.4); Monocytes Absolute Auto 0.1 X10*3/uL (0.1-1.2); Monocytes Percent Auto 0.8 % (2-11); Neutrophils Absolute Auto 7.2 x10*3/uL (2.0-8.3); Platelet Count 172 X10*3/uL (160-400); Red Blood Count 4.47 X10*6/uL (4.60-5.80); Red Cell Distribution Width 15.6 % (11.0-16.0); SCAN SMEAR FLAG 1; White Blood Count 7.6 X10*3/uL (4.8-10.8)
[2022-11-23 06:51] LABS: Anion Gap 16 (12-20); Blood Urea Nitrogen 25 mg/dL (9-16); Calcium 9.6 mg/dL (8.4-10.2); Carbon Dioxide 27 mmol/L (22-29); Chloride 98 mmol/L (96-108); Creatinine Clr Calc Pharmacy 61.6; Estimated Glomerular Filt Rate 51; Glucose Random 275 mg/dL (60-115); Potassium 5.1 mmol/L (3.3-5.1); Sodium 136 mmol/L (135-145)
[2022-11-23 07:08] LABS: SLIDE REVIEW VERIFIED
[2022-11-23] MEDS: Azithromycin 500 MG TABLET PO (07:21)
[2022-11-23] MEDS: cefTRIAXone sodium 1 GM in 0.9 % Sodium Chloride 50 ML IV (07:21)
--- NOTE | 2022-11-23 07:25 | PC.NURSE ---
patient sleeping, wakes to verbal stimulus a&o, wincher intact nsr 60s, vss, pt medicated per order, lungs diminished throughout, phlebotomy nitza labs, call castillo within reach, will continue to monitor.
[2022-11-23 07:36] LABS: Venous Blood Gas Refer to POC result
[2022-11-23 07:36] LABS: VBG Base Excess 8.1 mmol/L; VBG HCO3 34 mmol/L (22-26); VBG pCO2 55 mmHg; VBG pO2 246 mmHg
[2022-11-23] MEDS: Folic Acid 1 MG TABLET PO (09:20)
[2022-11-23] MEDS: Thiamine HCL 100 MG TABLET PO (09:21)
--- NOTE | 2022-11-23 09:25 | PC.NURSE ---
pt admitted to [facility] from the ED , Haydee from [employer] assisted with admission . pt is a poor historian , presented to ED with complaints of SOB and swelling to BLE. pt oriented to room and call castillo system bed alarm in use pt with hx of etoh use and withdrawl MD Morrell notified
--- NOTE | 2022-11-23 11:41 | HO.PM.IMPN ---
Subjective Subjective Date of Service: 11/24/22 Interval History: copd excerebation ,? pneumonia Review of Systems sob seems somewhat improving than yesterday denies any cough or chest pain Physical Exam Vital Signs: Vital Signs: Last Vital Signs Temp 96.9 F 11/23/22 08:00 Pulse 61 11/23/22 08:00 Resp 22 H 11/23/22 08:00 BP 163/89 H 11/23/22 08:00 Pulse Ox 96 11/23/22 08:00 O2 Del Method Aerosol Mask 11/23/22 08:00 O2 Flow Rate 6 11/23/22 08:00 BMI result Body Mass Index 45.1 Appearance: Alert.? Oriented X3.? sob with mnimum excersion cvs: rrr, [id number] , no murmur res: clear to auscultation ,no rhonchii or wheezing abd: no rebound or guarding ,nt, bs present. ext pulses present , no cyanosis . neuro: axo3 , nonfocal. Objective Data Active Medications Acetaminophen (Acetaminophen 325 Mg Tablet) 650 mg PO Q6H PRN PRN Reason: Pain, Mild (Pain Scale 1-3) Last Admin: 11/23/22 04:12 Dose: 650 mg Documented By: HEATH Albuterol/Ipratropium (Albuterol/Iprat 2.5/0.5mg 3 Ml Ampul.Neb) 3 ml INHALE RQ4H PRN PRN Reason: Shortness of Breath/Wheezing Albuterol/Ipratropium (Albuterol/Iprat 2.5/0.5mg 3 Ml Ampul.Neb) 3 ml INHALE RQ4H WHILE AWAKE [facility] Last Admin: 11/23/22 07:56 Dose: Not Given Documented By: ANTOINE Non-Admin Reason: Not In Room Azithromycin (Azithromycin 500 Mg Tablet) 500 mg PO Q24H [facility] Last Admin: 11/23/22 07:21 Dose: 500 mg Documented By: EDGAR Docusate Sodium (Docusate Sodium 100 Mg Capsule) 100 mg PO DAILY PRN PRN Reason: Constipation Enoxaparin Sodium (Enoxaparin Sodium 40 Mg/0.4 Ml Syringe) 40 mg SUBCUT Q24H [facility] Last Admin: 11/23/22 00:43 Dose: Not Given Documented By: HEATH Non-Admin Reason: PT REFUSED Ceftriaxone Sodium 1 gm/ (Sodium Chloride) 50 mls @ 100 mls/hr IV Q24H [facility] Last Infusion: 11/23/22 07:51 Dose: 0 mls/hr Documented By: EDGAR Methylprednisolone Sodium Succinate (Methylprednisolone Sod Succ 40 Mg/Ml Vial) 40 mg IVPUSH Q12H [facility] Last Admin: 11/23/22 10:30 Dose: Not Given Documented By: MARCOS Non-Admin Reason: Med Not Available Ondansetron HCl (Ondansetron Hcl 4 Mg/2 Ml Vial) 4 mg IVPUSH Q8H PRN PRN Reason: Nausea and Vomiting Pharmacy Consult (Consult Rx Etoh Phenob Po Only) 1 each MISCELLANE ONCE PRN; Protocol PRN Reason: Consult order Phenobarbital (Phenobarbital 15 Mg Tablet) 45 mg PO BID [facility] Stop: 11/25/22 09:01 Phenobarbital (Phenobarbital 30 Mg Tablet) 30 mg PO BID [facility] Stop: 11/27/22 09:01 Phenobarbital (Phenobarbital 30 Mg Tablet) 30 mg PO DAILY [facility] Stop: 11/29/22 09:01 Phenobarbital (Phenobarbital 200 Mg Po Once) 100 mg PO Q3H [facility] Stop: 11/23/22 16:01 Sodium Chloride (0.9 % Sodium Chloride Flush 3 Ml Syringe) 3 ml IVFLUSH QSHIFT [facility] Last Admin: 11/23/22 08:02 Dose: 3 ml Documented By: EDGAR Thiamine HCl (Thiamine Hcl 100 Mg Tablet) 100 mg PO DAILY [facility] Last Admin: 11/23/22 09:21 Dose: 100 mg Documented By: MARCOS Labs 11/23/22 06:17 11/23/22 06:17 Labs: Laboratory Results - last 24 hr 11/22/22 11/22/22 11/22/22 17:12 17:12 17:12 MCV 93.8 MCH 29.5 MCHC 31.5 RDW 15.5 Plt Count 188 MPV 9.4 Immature Gran % (Auto) 0.4 Neut % (Auto) 68.9 Lymph % (Auto) 17.6 L [place] % (Auto) 9.9 Eos % (Auto) 2.6 Baso % (Auto) 0.6 Lymph # (Auto) 1.7 [place] # (Auto) 1.0 Eos # (Auto) 0.3 Baso # (Auto) 0.1 Abs Immat Gran (auto) 0.04 H Absolute Neuts (auto) 6.6 Absolute Nucleated RBC 0.000 Nucleated RBC % (auto) 0.0 Smear Tech's Comments PT INR APTT VBG pH VBG pCO2 VBG pO2 VBG HCO3 VBG O2 Saturation VBG Base Excess Anion Gap 17 Estim Creat Clear Calc 64.8 Estimated GFR 54 Random Glucose 221 H Lactic Acid Calcium 9.6 Magnesium 2.0 Total Bilirubin 0.8 Direct Bilirubin 0.3 AST 43 H ALT 37 Alkaline Phosphatase 167 H Troponin I High Sens 16.3 D B-Natriuretic Peptide Total Protein 8.4 H Albumin 3.7 Lipase 28 Urine Color Urine Appearance Urine pH Ur Specific [place] Urine Protein Urine Glucose (UA) Urine Ketones Urine Blood Urine Nitrite Ur Leukocyte Esterase Ethyl Alcohol Influenza Type A (PCR) Influenza Type B (PCR) RSV RNA Qual (PCR) SARS-CoV-2 RNA (RT-PCR) 11/22/22 11/22/22 11/22/22 17:12 17:12 17:12 MCV MCH MCHC RDW Plt Count MPV Immature Gran % (Auto) Neut % (Auto) Lymph % (Auto) [place] % (Auto) Eos % (Auto) Baso % (Auto) Lymph # (Auto) [place] # (Auto) Eos # (Auto) Baso # (Auto) Abs Immat Gran (auto) Absolute Neuts (auto) Absolute Nucleated RBC Nucleated RBC % (auto) Smear Tech's Comments PT 10.5 INR 0.9 APTT 28.5 VBG pH VBG pCO2 VBG pO2 VBG HCO3 VBG O2 Saturation VBG Base Excess Anion Gap Estim Creat Clear Calc Estimated GFR Random Glucose Lactic Acid 2.0 Calcium Magnesium Total Bilirubin Direct Bilirubin AST ALT Alkaline Phosphatase Troponin I High Sens B-Natriuretic Peptide 183 H Total Protein Albumin Lipase Urine Color Urine Appearance Urine pH Ur Specific [place] Urine Protein Urine Glucose (UA) Urine Ketones Urine Blood Urine Nitrite Ur Leukocyte Esterase Ethyl Alcohol Influenza Type A (PCR) Influenza Type B (PCR) RSV RNA Qual (PCR) SARS-CoV-2 RNA (RT-PCR) 11/22/22 11/22/22 11/22/22 17:12 17:12 20:15 MCV MCH MCHC RDW Plt Count MPV Immature Gran % (Auto) Neut % (Auto) Lymph % (Auto) [place] % (Auto) Eos % (Auto) Baso % (Auto) Lymph # (Auto) [place] # (Auto) Eos # (Auto) Baso # (Auto) Abs Immat Gran (auto) Absolute Neuts (auto) Absolute Nucleated RBC Nucleated RBC % (auto) Smear Tech's Comments PT INR APTT VBG pH VBG pCO2 VBG pO2 VBG HCO3 VBG O2 Saturation VBG Base Excess Anion Gap Estim Creat Clear Calc Estimated GFR Random Glucose Lactic Acid Calcium Magnesium Total Bilirubin Direct Bilirubin AST ALT Alkaline Phosphatase Troponin I High Sens B-Natriuretic Peptide Total Protein Albumin Lipase Urine Color Yellow Urine Appearance Clear Urine pH 6.0 Ur Specific [place] 1.010 Urine Protein Negative Urine Glucose (UA) Negative Urine Ketones Negative Urine Blood Negative Urine Nitrite Negative Ur Leukocyte Esterase Negative Ethyl Alcohol 139 Influenza Type A (PCR) NEGATIVE Influenza Type B (PCR) NEGATIVE RSV RNA Qual (PCR) NEGATIVE SARS-CoV-2 RNA (RT-PCR) NEGATIVE 11/22/22 11/22/22 11/23/22 22:26 22:28 00:03 MCV MCH MCHC RDW Plt Count MPV Immature Gran % (Auto) Neut % (Auto) Lymph % (Auto) [place] % (Auto) Eos % (Auto) Baso % (Auto) Lymph # (Auto) [place] # (Auto) Eos # (Auto) Baso # (Auto) Abs Immat Gran (auto) Absolute Neuts (auto) Absolute Nucleated RBC Nucleated RBC % (auto) Smear Tech's Comments PT INR APTT VBG pH 7.42 VBG pCO2 56 VBG pO2 82 VBG HCO3 37 H VBG O2 Saturation 96.0 VBG Base Excess 10.6 Anion Gap Estim Creat Clear Calc Estimated GFR Random Glucose Lactic Acid Calcium Magnesium Total Bilirubin Direct Bilirubin AST ALT Alkaline Phosphatase Troponin I High Sens 14.5 15.5 B-Natriuretic Peptide Total Protein Albumin Lipase Urine Color Urine Appearance Urine pH Ur Specific [place] Urine Protein Urine Glucose (UA) Urine Ketones Urine Blood Urine Nitrite Ur Leukocyte Esterase Ethyl Alcohol Influenza Type A (PCR) Influenza Type B (PCR) RSV RNA Qual (PCR) SARS-CoV-2 RNA (RT-PCR) 11/23/22 11/23/22 11/23/22 00:07 06:17 06:17 MCV 93.7 MCH 29.5 MCHC 31.5 RDW 15.6 Plt Count 172 MPV 9.7 Immature Gran % (Auto) 0.3 Neut % (Auto) 94.0 H Lymph % (Auto) 4.6 L [place] % (Auto) 0.8 L Eos % (Auto) 0.0 Baso % (Auto) 0.3 Lymph # (Auto) 0.4 L [place] # (Auto) 0.1 Eos # (Auto) 0.0 Baso # (Auto) 0.0 Abs Immat Gran (auto) 0.02 Absolute Neuts (auto) 7.2 Absolute Nucleated RBC 0.000 Nucleated RBC % (auto) 0.0 Smear Tech's Comments VERIFIED PT INR APTT VBG pH 7.39 VBG pCO2 56 VBG pO2 67 VBG HCO3 34 H VBG O2 Saturation 90.0 VBG Base Excess 8.0 Anion Gap 16 Estim Creat Clear Calc 61.6 Estimated GFR 51 Random Glucose 275 H Lactic Acid Calcium 9.6 Magnesium Total Bilirubin Direct Bilirubin AST ALT Alkaline Phosphatase Troponin I High Sens B-Natriuretic Peptide Total Protein Albumin Lipase Urine Color Urine Appearance Urine pH Ur Specific [place] Urine Protein Urine Glucose (UA) Urine Ketones Urine Blood Urine Nitrite Ur Leukocyte Esterase Ethyl Alcohol Influenza Type A (PCR) Influenza Type B (PCR) RSV RNA Qual (PCR) SARS-CoV-2 RNA (RT-PCR) 11/23/22 07:29 MCV MCH MCHC RDW Plt Count MPV Immature Gran % (Auto) Neut % (Auto) Lymph % (Auto) [place] % (Auto) Eos % (Auto) Baso % (Auto) Lymph # (Auto) [place] # (Auto) Eos # (Auto) Baso # (Auto) Abs Immat Gran (auto) Absolute Neuts (auto) Absolute Nucleated RBC Nucleated RBC % (auto) Smear Tech's Comments PT INR APTT VBG pH 7.40 VBG pCO2 55 VBG pO2 246 VBG HCO3 34 H VBG O2 Saturation 99.0 VBG Base Excess 8.1 Anion Gap Estim Creat Clear Calc Estimated GFR Random Glucose Lactic Acid Calcium Magnesium Total Bilirubin Direct Bilirubin AST ALT Alkaline Phosphatase Troponin I High Sens B-Natriuretic Peptide Total Protein Albumin Lipase Urine Color Urine Appearance Urine pH Ur Specific [place] Urine Protein Urine Glucose (UA) Urine Ketones Urine Blood Urine Nitrite Ur Leukocyte Esterase Ethyl Alcohol Influenza Type A (PCR) Influenza Type B (PCR) RSV RNA Qual (PCR) SARS-CoV-2 RNA (RT-PCR) Assessment and Plan (1) Restrictive lung disease: Status: Acute (2) Obesity hypoventilation syndrome: Status: Acute (3) COPD with acute exacerbation: Status: Acute Plan 62-year-old male past medical history of COPD, DARRIAN, as well as alcohol abuse who presents to the hospital will complaints of shortness of breath found to have acute hypoxic respiratory failure acute hypoxic respiratory failure-? likely multifactorial in the setting of DARRIAN, as well as COPD, as well as possible pneumonia as seen on imaging -? patient will be treated with O2/CPAP at bedtime -? monitor respiratory status, monitor oxygen requirements, wean off oxygen as tolerated ? acute COPD exacerbation-? dyspnea, cough, increased sputum production -? will treat with DuoNeb p.r.n., scheduled, Solu-Medrol -? monitor respiratory status,? no evidence of? acute retention at this time, pH within normal ? pneumonia??has evidence of possible small airway disease on imaging -? will treat with IV antibiotics -? follow cultures ? lower extremity edema-? no evidence of CHF exacerbation - ? venous duplex negative -? although has erythema, edema, this is bilateral making cellulitis less likely -? begin antibiotics for above which will cover cellulitis -? follow cultures Morbid obesity: encouraged to loose weight. ?DVT prophylaxis:? Lovenox inpatient need: acute hypoxic respiratory failure sec to copd and possible pneumonia : needs nebs,steriods ,antibiotics ,blood cultures pending Time Spent With Patient Time: Total time managing care of this patient today ____ minutes. Quality Stroke Does the patient have a stroke diagnosis?: No VTE Prior VTE?: No VTE Risk Level:: Medical - moderate - high VTE Device Contraindication: Treatment Not Indicated VTE Drug Contraindication: N/A - Med Ordered
--- NOTE | 2022-11-23 12:01 | MHC.CM.PN ---
CM MET WITH PT AND HIS WITH THE ASSISTANCE OF A [employer] PTS REPORTS THE PT RESIDES WITH HER AND HER BROTHER SHE SAYS HE HAS [employer] [facility] [employer] PT HAS OXYGEN AND A CPAP, SHE WILL BRING THE CPAP IN SHE SAYS SHE IS PTS HCP, SHE WILL BRING A COPY TOMORROW PCP: MAT TORRES DCP: HOME, [facility] [employer] TO TRANSPORT
--- NOTE | 2022-11-23 14:08 | PHA.MEDREC ---
Pharmacy Consult ? Medication Reconciliation Pharmacy has completed the medication reconciliation. Spoke to patient's daughter ([phone] - Radhajosh) to confirm meds. Patient's daughter states that patient gets medbox from [facility]. Per patient's daughter, patient takes 45mg of methadone and gets it from [facility]. Called patient's nurse to relay information and to follow up in the morning, because clinic is already closed at time of note.
[2022-11-23] MEDS: PHENobarbitaL 200 MG PO ONCE 100 MG PO ×2 (14:27→17:07)
--- NOTE | 2022-11-23 14:32 | P.CONPL_ITS ---
History of Present Illness History of Present Illness Consult date: 11/23/22 Requesting physician: Bogdan Morrell Chief complaint: Acute COPD exacerbation Narrative: PULMONARY CONSULTATION: I have seen this 62 years old gentleman for pulmonary consultation and discuss the case with Dr. Morrell. He has been admitted because of increased shortness of breath for unknown period, and marked generalized weakness. On presentation to the emergency room his O2 sat was low in the 80s. He denied any fever chills or chest pain. This gentleman has multiple comorbidities including, hypertension, hyperlipidemia, diabetes mellitus, history of alcohol abuse and chronic liver disease, chronic kidney disease. He also has morbid obesity and is diagnosed to have severe obstructive sleep apnea, with respiratory failure. He has had the sleep study in the sleep lab, baseline sleep study showing moderately severe obstructive sleep apnea, followed by CPAP titration, in which he required bilevel pressures , 19/5 cm with O2 1 L/minute to get optimal results. Patient has been prescribed the BiPAP , for him to use at night. Normally he follows up with Dr. Noman Ridley, for his pulmonary issues and sleep apnea. But since after a visit in August of this year there has been no follow-up visit. It seems that he obtained his BiPAP after that visit, and least he did not come to our pulmonary office for follow-up for compliance. I suspect that he has not been using this regularly, The patient is not conversing much at this time and not able to give any more details.? Most of the information I have collected from the hospital medical records. ? ? Review of Systems Review of Systems: Yes unobtainable due to endotracheal tube PMFSH Past Medical History Medical History (Updated 11/23/22 @ 14:46 by Camille Ponce MD) Acute respiratory failure with hypoxia Chronic kidney disease Chronic respiratory failure CKD (chronic kidney disease) stage 3, GFR 30-59 ml/min Congestive heart failure Diabetes History of opiate therapy Liver cirrhosis Morbid obesity Morbid obesity due to excess calories Obesity hypoventilation syndrome DARRIAN (obstructive sleep apnea) DARRIAN treated with BiPAP Restrictive lung disease Family History Family History Mother Cancer Diabetes Social History Social History Household Members: Family Housing: House Do you presently have visiting nurse or other home services: No Alcohol intake: current Alcohol intake frequency: 3 or more drinks per day Alcohol type: beer Patient Tobacco Use Status: Never used Tobacco e-Cigarette/Vaping Use: Never Used Substance Use Type: Heroin service: No Current occupational status: disabled Meds Allergies Allergy/AdvReac Type Severity Reaction Status Date / Time aspirin [ASPIRIN] Allergy Unknown RASH Verified 08/23/22 10:57 ibuprofen Allergy Unknown nausea and Verified 08/23/22 10:57 vomiting Active Medications: Current Medications Acetaminophen (Acetaminophen 325 Mg Tablet) 650 mg PO Q6H PRN PRN Reason: Pain, Mild (Pain Scale 1-3) Last Admin: 11/23/22 04:12 Dose: 650 mg Albuterol/Ipratropium (Albuterol/Iprat 2.5/0.5mg 3 Ml Ampul.Neb) 3 ml INHALE RQ4H PRN PRN Reason: Shortness of Breath/Wheezing Albuterol/Ipratropium (Albuterol/Iprat 2.5/0.5mg 3 Ml Ampul.Neb) 3 ml INHALE RQ4H WHILE AWAKE [facility] Last Admin: 11/23/22 12:20 Dose: Not Given Azithromycin (Azithromycin 500 Mg Tablet) 500 mg PO Q24H [facility] Last Admin: 11/23/22 07:21 Dose: 500 mg Docusate Sodium (Docusate Sodium 100 Mg Capsule) 100 mg PO DAILY PRN PRN Reason: Constipation Empagliflozin (Empagliflozin 10 Mg Tablet) 10 mg PO DAILY [facility] Enoxaparin Sodium (Enoxaparin Sodium 40 Mg/0.4 Ml Syringe) 40 mg SUBCUT Q24H [facility] Last Admin: 11/23/22 00:43 Dose: Not Given Folic Acid (Folic Acid 1 Mg Tablet) 1 mg PO DAILY THAI Furosemide (Furosemide 20 Mg Tablet) 20 mg PO DAILY [facility]; Protocol Ceftriaxone Sodium 1 gm/ (Sodium Chloride) 50 mls @ 100 mls/hr IV Q24H [facility] Last Infusion: 11/23/22 07:51 Dose: Infused Methylprednisolone Sodium Succinate (Methylprednisolone Sod Succ 40 Mg/Ml Vial) 40 mg IVPUSH Q12H [facility] Last Admin: 11/23/22 10:30 Dose: Not Given Non-Formulary Medication (Ipratropium-Albuterol [Combivent Respimat]) 1 puff INHALE QID [facility] Non-Formulary Medication (Simethicone [Gas Relief (Simethicone)]) 180 mg PO BID PRN PRN Reason: abdominal distention Omeprazole (Omeprazole 40 Mg Capsule.Dr) 40 mg PO DAILY@0630 [facility] Ondansetron HCl (Ondansetron Hcl 4 Mg/2 Ml Vial) 4 mg IVPUSH Q8H PRN PRN Reason: Nausea and Vomiting Paroxetine HCl (Paroxetine Hcl 20 Mg Tablet) 20 mg PO BEDTIME [facility] Pharmacy Consult (Consult Rx Etoh Phenob Po Only) 1 each MISCELLANE ONCE PRN; Protocol PRN Reason: Consult order Phenobarbital (Phenobarbital 15 Mg Tablet) 45 mg PO BID [facility] Stop: 11/25/22 09:01 Phenobarbital (Phenobarbital 30 Mg Tablet) 30 mg PO BID [facility] Stop: 11/27/22 09:01 Phenobarbital (Phenobarbital 30 Mg Tablet) 30 mg PO DAILY [facility] Stop: 11/29/22 09:01 Phenobarbital (Phenobarbital 200 Mg Po Once) 100 mg PO Q3H [facility] Stop: 11/23/22 16:01 Last Admin: 11/23/22 14:27 Dose: 100 mg Senna (Sennosides 8.6 Mg Tablet) 17.2 mg PO BEDTIME [facility] Sodium Chloride (0.9 % Sodium Chloride Flush 3 Ml Syringe) 3 ml IVFLUSH QSHIFT [facility] Last Admin: 11/23/22 08:02 Dose: 3 ml Spironolactone (Spironolactone 25 Mg Tablet) 25 mg PO BEDTIME [facility]; Protocol Thiamine HCl (Thiamine Hcl 100 Mg Tablet) 100 mg PO DAILY [facility] Last Admin: 11/23/22 09:21 Dose: 100 mg Thiamine HCl (Thiamine Hcl 100 Mg Tablet) 100 mg PO DAILY [facility] Home Medications Medication Instructions Recorded Confirmed Last Taken Type folic acid 1 mg tablet 1 mg PO DAILY 06/18/21 11/23/22 11/22/22 History thiamine HCl (vitamin B1) 100 mg 100 mg PO DAILY 06/18/21 11/23/22 11/22/22 History tablet blood sugar diagnostic (FreeStyle #10 ea 12/12/21 06/05/22 11/22/22 History Lite Strips) blood-glucose meter (FreeStyle #1 ea 12/12/21 06/05/22 11/22/[address] Lite kit) furosemide 20 mg tablet 20 mg PO DAILY 12/12/21 11/23/22 11/22/22 History lancets 33 gauge (TRUEplus Lancets) #100 ea 12/12/21 06/05/22 11/22/22 History prazosin 1 mg capsule 1 mg PO BEDTIME PRN nightmares 12/12/21 11/23/22 Unknown History methadone 10 mg/mL oral concentrate 45 mg PO DAILY 02/20/22 06/05/22 Unknown History empagliflozin 10 mg tablet 1 tab PO DAILY 04/11/22 11/23/22 11/22/22 History (Jardiance) paroxetine HCl 20 mg tablet 1 tab PO BEDTIME 04/11/22 11/23/22 11/21/22 History spironolactone 25 mg tablet 1 tab PO BEDTIME 04/11/22 11/23/22 11/21/22 History Oxygen Home Use 04/22/22 06/05/22 11/22/22 History omeprazole 40 mg capsule,delayed 40 mg PO DAILY@0630 11/23/22 11/23/22 11/22/22 History release Physical Exam Vital Signs: Vital Signs: Last Vital Signs Temp 96.9 F 11/23/22 08:00 Pulse 61 11/23/22 08:00 Resp 18 11/23/22 12:10 BP 163/89 H 11/23/22 08:00 Pulse Ox 96 11/23/22 12:10 O2 Del Method Oxymask 11/23/22 12:10 O2 Flow Rate 3 11/23/22 12:10 BMI result Body Mass Index 45.1 The patient is obviously obese with a very round face short neck, He is not able to do any conversation at this time. Const: General: comfortable (But short of breath), no acute distress, alert and awake Orientation/consciousness: patient oriented x3 HEENT: Head: Yes normal to inspection General nose exam: No nasal polyps present and No nasal discharge present Face and sinus: Yes sinuses nontender Mouth: oropharynx abnormals (Difficult to examine his oropharynx as he does not open his mouth widely. ) Throat: Yes posterior oropharynx normal Eyes: General: appearance normal, both eyes and all related structures Neck: Other: Neck is short and obese Neck: Yes normal visual inspection, Yes no lymphadenopathy, Yes trachea midl ine and Yes no JVD Thyroid: Thyroid normal Chest: Chest palpation & inspection: normal inspection of the chest, normal palpation of entire chest wall and no tenderness Resp: Other: Percussion note is resonant except over the basilar areas. Breath sounds are diminished over the lower lobes especially over the basilar areas. No wheezes or rhonchi are heard and also no crepitations are heard. Cardio: Palpation: PMI not normal (Not palpable) Rate: regular rate Rhythm: regular rhythm Heart sounds: no gallops and no murmurs GI: Palpation (GI): Soft to palpation, nontender, No hepatosplenomegaly present, no masses and Other GI palpation findings present (Abdomen is obese and protuberant) Auscultation: normal bowel sounds Back/Spine/Pelvis: Other: Not examine Skin: General skin exam: no rashes or lesions noted Neuro: General: patient oriented x3 and no focal motor deficits Cranial nerves: Yes CN's II-XII intact bilaterally Extrem: General: Yes normal to inspection, Yes no clubbing, cyanosis or edema, Yes no calf tenderness and Yes venous stasis dermatitis Psych: Appearance: grossly normal Results Laboratory Findings 11/23/22 06:17 11/23/22 06:17 ABG, PT/INR, D-dimer: PT/INR, D-dimer PT 10.5 SEC (10.0-13.1) 11/22/22 17:12 INR 0.9 (0.9-1.1) 11/22/22 17:12 Abnormal lab findings: Abnormal Labs 11/22/22 11/22/22 11/22/22 17:12 17:12 17:12 RBC 4.37 L Hgb 12.9 L Hct 41.0 L Neut % (Auto) Lymph % (Auto) 17.6 L [place] % (Auto) Lymph # (Auto) Abs Immat Gran (auto) 0.04 H VBG HCO3 BUN 19 H Creatinine Random Glucose 221 H AST 43 H Alkaline Phosphatase 167 H B-Natriuretic Peptide 183 H Total Protein 8.4 H 11/22/22 11/23/22 11/23/22 22:28 00:07 06:17 RBC 4.47 L Hgb 13.2 L Hct 41.9 L Neut % (Auto) 94.0 H Lymph % (Auto) 4.6 L [place] % (Auto) 0.8 L Lymph # (Auto) 0.4 L Abs Immat Gran (auto) VBG HCO3 37 H 34 H BUN Creatinine Random Glucose AST Alkaline Phosphatase B-Natriuretic Peptide Total Protein 11/23/22 11/23/22 06:17 07:29 RBC Hgb Hct Neut % (Auto) Lymph % (Auto) [place] % (Auto) Lymph # (Auto) Abs Immat Gran (auto) VBG HCO3 34 H BUN 25 H Creatinine 1.42 H Random Glucose 275 H AST Alkaline Phosphatase B-Natriuretic Peptide Total Protein Diagnostic Findings Chest x-ray: report reviewed and image reviewed CT scan - chest: report reviewed and image reviewed Assessment and Plan (1) Morbid obesity: Status: Acute (2) DARRIAN treated with BiPAP: Status: Acute (3) Obesity hypoventilation syndrome: Status: Acute (4) Restrictive lung disease: Status: Acute (5) COPD with acute exacerbation: Status: Acute (6) Chronic respiratory failure: Qualifiers: Respiratory failure complication: hypoxia Qualified Code(s): J96.11 - Chronic respiratory failure with hypoxia Status: Acute Plan This gentleman's main problem is morbid obesity, restrictive pulmonary disease, DARRIAN/hypoventilation syndrome, probably not being treated appropriately. I suspect that he has not been using his BiPAP regularly. He has chronic respiratory failure( hypoxemic/CO2 retention ) , which should have been treated with the proper use of BiPAP. Due to small lung volumes, the bronchovascular markings in the lower lobes are crowded. I doubt he has any pneumonia. He may have associated obstructive airway disorder, but his main respiratory problem is restrictive lung disease. Recc . A agree with the current outlined management. He should use BiPAP at night at least for 8 hours, per night he is supposed to be on bilevel pressure of 19/5 cm as per his CPAP titration study. He is supposed to be on O2 supplementation 1 or 2 L/minute along with the BiPAP, the goal should be to keep his O2 sat above 90%. O2 supplementation during the daytime with nasal cannula or face mask, adjust the flow to keep O2 sat. 90-92% DuoNeb updrafts Q. 6 hours while awake Incentive spirometry. I see that patient has been started on IV Solu-Medrol and also on antibiotic coverage for possibility of acute exacerbation of COPD. This can be continued for 1 or 2 more days and then, wean off the steroids, And may discontinue antibiotics. Thank you very much for asthma to see this patient. Time Spent With Patient Time: Total time managing care of this patient today ____ minutes. Procedures Date of Service Date of Service: 11/23/22
[2022-11-23] MEDS: Albuterol/Iprat 2.5/0.5MG 3 ML AMPUL.NEB INHALE ×2 (16:16→19:55)
[2022-11-23] MEDS: PHENobarbitaL 15 MG TABLET 45 MG PO (19:55)
[2022-11-23] MEDS: Sennosides 8.6 MG TABLET 17.2 MG PO (19:55)
[2022-11-23] MEDS: Spironolactone 25 MG TABLET PO (19:55)
[2022-11-23] MEDS: PARoxetine HCL 20 MG TABLET PO (19:55)
[2022-11-23] MEDS: methylPREDNISolone Sod Succ 125 MG/2 ML VIAL 40 MG IVPUSH (21:35)
[2022-11-24] VITALS (7 sets, daily range): BP systolic 137–168; BP diastolic 74–99; PULSE 63–72; RESP 18–20; TEMP 36–36.7; O2SAT 91–97
[2022-11-24] MEDS: Enoxaparin Sodium 40 MG/0.4 ML SYRINGE SUBCUT (00:17)
[2022-11-24] MEDS: Azithromycin 500 MG TABLET PO (06:08)
[2022-11-24] MEDS: Omeprazole 40 MG CAPSULE.DR PO (06:08)
[2022-11-24] MEDS: cefTRIAXone sodium 1 GM in 0.9 % Sodium Chloride 50 ML IV (06:08)
[2022-11-24 06:58] LABS: Glucose, Whole Blood 281 mg/dL (60-115)
[2022-11-24] MEDS: Folic Acid 1 MG TABLET PO (07:48)
[2022-11-24] MEDS: Furosemide 20 MG TABLET PO (07:48)
[2022-11-24] MEDS: Thiamine HCL 100 MG TABLET PO (07:48)
[2022-11-24] MEDS: Empagliflozin 10 MG TABLET PO (07:49)
[2022-11-24] MEDS: PHENobarbitaL 15 MG TABLET 45 MG PO ×2 (07:49→20:34)
[2022-11-24] MEDS: Insulin Lispro 100 UNIT/ML 3 ML VIAL SUBCUT ×4 (07:49→20:34)
[2022-11-24 07:54] LABS: Glucose, Whole Blood 280 mg/dL (60-115)
[2022-11-24] MEDS: 0.9 % Sodium Chloride Flush 3 ML SYRINGE IVFLUSH ×3 (07:54→20:35)
[2022-11-24] MEDS: Albuterol/Iprat 2.5/0.5MG 3 ML AMPUL.NEB INHALE ×3 (08:29→18:56)
[2022-11-24] MEDS: methylPREDNISolone Sod Succ 125 MG/2 ML VIAL 40 MG IVPUSH ×2 (10:07→20:35)
--- NOTE | 2022-11-24 10:52 | PC.NURSE ---
Attempted to obtain pts methadone dosing history from [facility] in [place] @ [phone] called at [phone] , left a call back message requesting for a return call . Clinic is now closed had limited hours today. will need to contact them again tomorrow, will pass on to the oncoming shift .
[2022-11-24 11:29] LABS: Glucose, Whole Blood 273 mg/dL (60-115)
--- NOTE | 2022-11-24 11:48 | HO.PM.IMPN ---
Subjective Subjective Date of Service: 11/24/22 Interval History: COPD exacerbation Review of Systems Patient has shortness of breath with minimal exertion, dry cough Denies any chest pain or nausea vomiting or fever. Physical Exam Vital Signs: Vital Signs: Last Vital Signs Temp 97.1 F 11/24/22 07:31 Pulse 67 11/24/22 08:30 Resp 20 11/24/22 08:30 BP 139/75 11/24/22 07:31 Pulse Ox 94 11/24/22 07:31 O2 Del Method Oxymask 11/24/22 07:31 O2 Flow Rate 3 11/24/22 07:31 BMI result Body Mass Index 45.1 Appearance: Alert.? Oriented X3.? sob with mnimum excersion cvs: rrr, [id number] , no murmur res: air entry diminshed ,has b/l wheezin abd: no rebound or guarding ,nt, bs present. ext pulses present , no cyanosis . neuro: axo3 , nonfocal. Objective Data Active Medications Acetaminophen (Acetaminophen 325 Mg Tablet) 650 mg PO Q6H PRN PRN Reason: Pain, Mild (Pain Scale 1-3) Last Admin: 11/23/22 04:12 Dose: 650 mg Documented By: HEATH Albuterol/Ipratropium (Albuterol/Iprat 2.5/0.5mg 3 Ml Ampul.Neb) 3 ml INHALE RQ4H PRN PRN Reason: Shortness of Breath/Wheezing Albuterol/Ipratropium (Albuterol/Iprat 2.5/0.5mg 3 Ml Ampul.Neb) 3 ml INHALE RQ4H WHILE AWAKE [facility] Last Admin: 11/24/22 08:29 Dose: 3 ml Documented By: JARRELL Albuterol/Ipratropium (Albuterol/Iprat 2.5/0.5mg 3 Ml Ampul.Neb) 1 ml INHALE RQ6H [facility] Last Admin: 11/24/22 08:30 Dose: Not Given Documented By: JARRELL Non-Admin Reason: Duplicate Order Azithromycin (Azithromycin 500 Mg Tablet) 500 mg PO Q24H [facility] Last Admin: 11/24/22 06:08 Dose: 500 mg Documented By: ANTONIO Dextrose (Dextrose 50 % 25 Gm/50 Ml Syringe) 25 gm IVPUSH Q15M PRN; Protocol PRN Reason: per Hypoglycemia Standing Ord. Docusate Sodium (Docusate Sodium 100 Mg Capsule) 100 mg PO DAILY PRN PRN Reason: Constipation Empagliflozin (Empagliflozin 10 Mg Tablet) 10 mg PO DAILY [facility] Last Admin: 11/24/22 07:49 Dose: 10 mg Documented By: MARCOS Enoxaparin Sodium (Enoxaparin Sodium 40 Mg/0.4 Ml Syringe) 40 mg SUBCUT Q24H [facility] Last Admin: 11/24/22 00:17 Dose: 40 mg Documented By: ANTONIO Folic Acid (Folic Acid 1 Mg Tablet) 1 mg PO DAILY [facility] Last Admin: 11/24/22 07:48 Dose: 1 mg Documented By: MARCOS Furosemide (Furosemide 20 Mg Tablet) 20 mg PO DAILY [facility]; Protocol Last Admin: 11/24/22 07:48 Dose: 20 mg Documented By: MARCOS Glucose (Glucose Gel 15 Gm Gel..Gram.) 15 gm PO Q15M PRN; Protocol PRN Reason: per Hypoglycemia Standing Ord. Ceftriaxone Sodium 1 gm/ (Sodium Chloride) 50 mls @ 100 mls/hr IV Q24H [facility] Last Infusion: 11/24/22 06:42 Dose: 0 mls/hr Documented By: ANTONIO Insulin Human Lispro (Insulin Lispro 100 Unit/Ml 3 Ml Vial) 0 unit SUBCUT QIDACHS [facility]; Protocol Last Admin: 11/24/22 11:43 Dose: 6 unit Documented By: MARCOS Methylprednisolone Sodium Succinate (Methylprednisolone Sod Succ 125 Mg/2 Ml Vial) 40 mg IVPUSH Q12H [facility] Last Admin: 11/24/22 10:07 Dose: 40 mg Documented By: MARCOS Omeprazole (Omeprazole 40 Mg Capsule.Dr) 40 mg PO DAILY@0630 [facility] Last Admin: 11/24/22 06:08 Dose: 40 mg Documented By: ANTONIO Ondansetron HCl (Ondansetron Hcl 4 Mg/2 Ml Vial) 4 mg IVPUSH Q8H PRN PRN Reason: Nausea and Vomiting Paroxetine HCl (Paroxetine Hcl 20 Mg Tablet) 20 mg PO BEDTIME [facility] Last Admin: 11/23/22 19:55 Dose: 20 mg Documented By: ANTONIO Pharmacy Consult (Consult Rx Etoh Phenob Po Only) 1 each MISCELLANE ONCE PRN; Protocol PRN Reason: Consult order Phenobarbital (Phenobarbital 15 Mg Tablet) 45 mg PO BID [facility] Stop: 11/25/22 09:01 Last Admin: 11/24/22 07:49 Dose: 45 mg Documented By: MARCOS Phenobarbital (Phenobarbital 30 Mg Tablet) 30 mg PO BID [facility] Stop: 11/27/22 09:01 Phenobarbital (Phenobarbital 30 Mg Tablet) 30 mg PO DAILY [facility] Stop: 11/29/22 09:01 Senna (Sennosides 8.6 Mg Tablet) 17.2 mg PO BEDTIME [facility] Last Admin: 11/23/22 19:55 Dose: 17.2 mg Documented By: ANTONIO Simethicone (Simethicone 80 Mg Tab.Chew) 160 mg PO BID PRN PRN Reason: abdominal distention Sodium Chloride (0.9 % Sodium Chloride Flush 3 Ml Syringe) 3 ml IVFLUSH QSHIFT [facility] Last Admin: 11/24/22 07:54 Dose: 3 ml Documented By: MARCOS Spironolactone (Spironolactone 25 Mg Tablet) 25 mg PO BEDTIME [facility]; Protocol Last Admin: 11/23/22 19:55 Dose: 25 mg Documented By: ANTONIO Thiamine HCl (Thiamine Hcl 100 Mg Tablet) 100 mg PO DAILY [facility] Last Admin: 11/24/22 07:48 Dose: 100 mg Documented By: MARCOS Thiamine HCl (Thiamine Hcl 100 Mg Tablet) 100 mg PO DAILY [facility] Last Admin: 11/24/22 07:53 Dose: Not Given Documented By: MARCOS Non-Admin Reason: Duplicate Order Labs 11/23/22 06:17 11/23/22 06:17 Labs: Laboratory Results - last 24 hr 11/24/22 11/24/22 11/24/22 06:53 07:36 11:20 POC Glucose 281 H 280 H 273 H Microbiology Microbiology Results: Microbiology 11/22/22 17:12 Blood Culture - Preliminary Blood - Venous No growth after 24 hours. 11/22/22 17:12 Blood Culture - Preliminary Blood - Venous No growth after 24 hours. Assessment and Plan (1) Restrictive lung disease: Status: Acute (2) Obesity hypoventilation syndrome: Status: Acute (3) COPD with acute exacerbation: Status: Acute Plan 62-year-old male past medical history of COPD, DARRIAN, as well as alcohol abuse who presents to the hospital will complaints of shortness of breath found to have acute hypoxic respiratory failure acute hypoxic respiratory failure-? likely multifactorial in the setting of DARRIAN, as well as COPD, as well as possible pneumonia as seen on imaging -? patient will be treated with O2/CPAP at bedtime -? monitor respiratory status, monitor oxygen requirements, wean off oxygen as tolerated ? acute COPD exacerbation-? dyspnea, cough, increased sputum production -? will treat with DuoNeb p.r.n., scheduled, Solu-Medrol -? monitor respiratory status,? no evidence of? acute retention at this time, pH within normal ? pneumonia??has evidence of possible small airway disease on imaging -? will treat with IV antibiotics -? follow cultures ? lower extremity edema-? no evidence of CHF exacerbation - ? venous duplex negative -? although has erythema, edema, this is bilateral making cellulitis less likely ? follow cultures Morbid obesity: encouraged to loose weight. ?DVT prophylaxis:? Lovenox inpatient need: acute hypoxic respiratory failure sec to copd and possible pneumonia : needs nebs,steriods ,antibiotics ,blood cultures pending Time Spent With Patient Time: Total time managing care of this patient today ____ minutes. Quality Stroke Does the patient have a stroke diagnosis?: No VTE Prior VTE?: No VTE Risk Level:: Medical - moderate - high VTE Device Contraindication: Treatment Not Indicated VTE Drug Contraindication: N/A - Med Ordered
[2022-11-24 16:06] LABS: Glucose, Whole Blood 290 mg/dL (60-115)
[2022-11-24 20:26] LABS: Glucose, Whole Blood 311 mg/dL (60-115)
[2022-11-24] MEDS: Spironolactone 25 MG TABLET PO (20:34)
[2022-11-24] MEDS: Sennosides 8.6 MG TABLET 17.2 MG PO (20:34)
[2022-11-24] MEDS: PARoxetine HCL 20 MG TABLET PO (20:34)
[2022-11-25] VITALS (11 sets, daily range): BP systolic 146–187; BP diastolic 52–92; PULSE 56–72; RESP 16–20; TEMP 35.9–36.4; O2SAT 93–97
[2022-11-25] MEDS: Enoxaparin Sodium 40 MG/0.4 ML SYRINGE SUBCUT (00:37)
[2022-11-25] MEDS: Omeprazole 40 MG CAPSULE.DR PO (06:00)
[2022-11-25] MEDS: Azithromycin 500 MG TABLET PO (06:00)
[2022-11-25] MEDS: cefTRIAXone sodium 1 GM in 0.9 % Sodium Chloride 50 ML IV (06:04)
[2022-11-25 07:46] LABS: Glucose, Whole Blood 240 mg/dL (60-115)
[2022-11-25] MEDS: Albuterol/Iprat 2.5/0.5MG 3 ML AMPUL.NEB INHALE ×4 (08:00→18:53)
[2022-11-25] MEDS: 0.9 % Sodium Chloride Flush 3 ML SYRINGE IVFLUSH ×3 (08:27→21:14)
[2022-11-25] MEDS: Insulin Lispro 100 UNIT/ML 3 ML VIAL SUBCUT ×4 (08:27→21:12)
[2022-11-25] MEDS: Furosemide 20 MG TABLET PO (08:27)
[2022-11-25] MEDS: PHENobarbitaL 15 MG TABLET 45 MG PO (08:28)
[2022-11-25] MEDS: Empagliflozin 10 MG TABLET PO (08:28)
[2022-11-25] MEDS: hydrALAZINE HCl 25 MG TABLET PO ×2 (08:28→16:52)
[2022-11-25] MEDS: Thiamine HCL 100 MG TABLET PO (08:28)
[2022-11-25] MEDS: Folic Acid 1 MG TABLET PO (08:30)
[2022-11-25] MEDS: methylPREDNISolone Sod Succ 125 MG/2 ML VIAL 40 MG IVPUSH ×2 (10:48→21:14)
[2022-11-25 11:19] LABS: Glucose, Whole Blood 259 mg/dL (60-115)
--- NOTE | 2022-11-25 11:30 | HO.PM.IMPN ---
Subjective Subjective Date of Service: 11/25/22 Interval History: COPD exacerbation,alcohol withdrawal Review of Systems sob seems similar to yesterday has tremer ,seems anxious denies any cough or chest pain Physical Exam Vital Signs: Vital Signs: Last Vital Signs Temp 97.5 F 11/25/22 07:25 Pulse 61 11/25/22 11:25 Resp 18 11/25/22 11:25 BP 187/86 H 11/25/22 07:25 Pulse Ox 97 11/25/22 07:25 O2 Del Method Nasal Cannula 11/25/22 07:25 O2 Flow Rate 2 11/25/22 07:25 BMI result Body Mass Index 45.1 Appearance: Alert.? Oriented X3.? sob with mnimum excersion cvs: rrr, [id number] , no murmur res: clear to auscultation ,no rhonchii or wheezing abd: no rebound or guarding ,nt, bs present. ext pulses present , no cyanosis . neuro: axo3 , nonfocal. tramulous and anxious Objective Data Active Medications Acetaminophen (Acetaminophen 325 Mg Tablet) 650 mg PO Q6H PRN PRN Reason: Pain, Mild (Pain Scale 1-3) Last Admin: 11/23/22 04:12 Dose: 650 mg Documented By: HEATH Albuterol/Ipratropium (Albuterol/Iprat 2.5/0.5mg 3 Ml Ampul.Neb) 3 ml INHALE RQ4H PRN PRN Reason: Shortness of Breath/Wheezing Albuterol/Ipratropium (Albuterol/Iprat 2.5/0.5mg 3 Ml Ampul.Neb) 3 ml INHALE RQ4H WHILE AWAKE [facility] Last Admin: 11/25/22 11:23 Dose: 3 ml Documented By: MARYURI Albuterol/Ipratropium (Albuterol/Iprat 2.5/0.5mg 3 Ml Ampul.Neb) 1 ml INHALE RQ6H [facility] Last Admin: 11/25/22 06:28 Dose: Not Given Documented By: MIESHA Non-Admin Reason: Duplicate Order Azithromycin (Azithromycin 500 Mg Tablet) 500 mg PO Q24H [facility] Last Admin: 11/25/22 06:00 Dose: 500 mg Documented By: MIESHA Dextrose (Dextrose 50 % 25 Gm/50 Ml Syringe) 25 gm IVPUSH Q15M PRN; Protocol PRN Reason: per Hypoglycemia Standing Ord. Docusate Sodium (Docusate Sodium 100 Mg Capsule) 100 mg PO DAILY PRN PRN Reason: Constipation Empagliflozin (Empagliflozin 10 Mg Tablet) 10 mg PO DAILY [facility] Last Admin: 11/25/22 08:28 Dose: 10 mg Documented By: SULMA Enoxaparin Sodium (Enoxaparin Sodium 40 Mg/0.4 Ml Syringe) 40 mg SUBCUT Q24H [facility] Last Admin: 11/25/22 00:37 Dose: 40 mg Documented By: MIESHA Folic Acid (Folic Acid 1 Mg Tablet) 1 mg PO DAILY [facility] Last Admin: 11/25/22 08:30 Dose: 1 mg Documented By: SULMA Furosemide (Furosemide 20 Mg Tablet) 20 mg PO DAILY [facility]; Protocol Last Admin: 11/25/22 08:27 Dose: 20 mg Documented By: SULMA Glucose (Glucose Gel 15 Gm Gel..Gram.) 15 gm PO Q15M PRN; Protocol PRN Reason: per Hypoglycemia Standing Ord. Hydralazine HCl (Hydralazine Hcl 25 Mg Tablet) 25 mg PO BIDWM [facility]; Protocol Last Admin: 11/25/22 08:28 Dose: 25 mg Documented By: SULMA Ceftriaxone Sodium 1 gm/ (Sodium Chloride) 50 mls @ 100 mls/hr IV Q24H [facility] Last Infusion: 11/25/22 06:37 Dose: 0 mls/hr Documented By: MIESHA Insulin Human Lispro (Insulin Lispro 100 Unit/Ml 3 Ml Vial) 0 unit SUBCUT QIDACHS [facility]; Protocol Last Admin: 11/25/22 08:27 Dose: 4 unit Documented By: SULMA Methylprednisolone Sodium Succinate (Methylprednisolone Sod Succ 125 Mg/2 Ml Vial) 40 mg IVPUSH Q12H [facility] Last Admin: 11/25/22 10:48 Dose: 40 mg Documented By: SULMA Omeprazole (Omeprazole 40 Mg Capsule.) 40 mg PO DAILY@0630 [facility] Last Admin: 11/25/22 06:00 Dose: 40 mg Documented By: MIESHA Ondansetron HCl (Ondansetron Hcl 4 Mg/2 Ml Vial) 4 mg IVPUSH Q8H PRN PRN Reason: Nausea and Vomiting Paroxetine HCl (Paroxetine Hcl 20 Mg Tablet) 20 mg PO BEDTIME [facility] Last Admin: 11/24/22 20:34 Dose: 20 mg Documented By: BING Pharmacy Consult (Consult Rx Etoh Phenob Po Only) 1 each MISCELLANE ONCE PRN; Protocol PRN Reason: Consult order Phenobarbital (Phenobarbital 30 Mg Tablet) 30 mg PO BID [facility] Stop: 11/27/22 09:01 Phenobarbital (Phenobarbital 30 Mg Tablet) 30 mg PO DAILY [facility] Stop: 11/29/22 09:01 Senna (Sennosides 8.6 Mg Tablet) 17.2 mg PO BEDTIME [facility] Last Admin: 11/24/22 20:34 Dose: 17.2 mg Documented By: BING Simethicone (Simethicone 80 Mg Tab.Chew) 160 mg PO BID PRN PRN Reason: abdominal distention Sodium Chloride (0.9 % Sodium Chloride Flush 3 Ml Syringe) 3 ml IVFLUSH QSHIFT [facility] Last Admin: 11/25/22 08:27 Dose: 3 ml Documented By: SULMA Spironolactone (Spironolactone 25 Mg Tablet) 25 mg PO BEDTIME [facility]; Protocol Last Admin: 11/24/22 20:34 Dose: 25 mg Documented By: BING Thiamine HCl (Thiamine Hcl 100 Mg Tablet) 100 mg PO DAILY [facility] Last Admin: 11/25/22 08:28 Dose: 100 mg Documented By: SULMA Labs 11/23/22 06:17 11/23/22 06:17 Labs: Laboratory Results - last 24 hr 11/24/22 11/24/22 11/25/22 16:00 19:47 07:24 POC Glucose 290 H 311 H 240 H 11/25/22 11:05 POC Glucose 259 H Microbiology Microbiology Results: Microbiology 11/22/22 17:12 Blood Culture - Preliminary Blood - Venous No growth after 48 hours. 11/22/22 17:12 Blood Culture - Preliminary Blood - Venous No growth after 48 hours. Assessment and Plan (1) Restrictive lung disease: Status: Acute (2) Obesity hypoventilation syndrome: Status: Acute (3) COPD with acute exacerbation: Status: Acute Plan 62-year-old male past medical history of COPD, DARRIAN, as well as alcohol abuse who presents to the hospital will complaints of shortness of breath found to have acute hypoxic respiratory failure acute hypoxic respiratory failure-? likely multifactorial in the setting of DARRIAN, as well as COPD, as well as possible pneumonia as seen on imaging -? patient will be treated with O2/CPAP at bedtime -? monitor respiratory status, monitor oxygen requirements, wean off oxygen as tolerated ? acute COPD exacerbation-? dyspnea, cough, increased sputum production -? will treat with DuoNeb p.r.n., scheduled, Solu-Medrol -? monitor respiratory status,? no evidence of? acute retention at this time, pH within normal ? pneumonia??has evidence of possible small airway disease on imaging -? will treat with IV antibiotics,blood cultures neg@48 cultures consider switch to po antibiotics by tomorrow ? lower extremity edema-? no evidence of CHF exacerbation - ? venous duplex negative -? although has erythema, edema, this is bilateral making cellulitis less likely ? 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 Morbid obesity: encouraged to loose weight. ?DVT prophylaxis:? Lovenox inpatient need: acute hypoxic respiratory failure sec to copd and possible pneumonia : needs nebs,steriods ,antibiotics,taper oxygen. alcohol withdrwal-on ciwa ,phenobarbital. Time Spent With Patient Time: Total time managing care of this patient today ____ minutes. Quality Stroke Does the patient have a stroke diagnosis?: No VTE Prior VTE?: No VTE Risk Level:: Medical - moderate - high VTE Device Contraindication: Treatment Not Indicated VTE Drug Contraindication: N/A - Med Ordered
[2022-11-25] MEDS: methADONE HCl 20 MG/2 ML ORAL.CONC 30 MG PO (11:37)
--- NOTE | 2022-11-25 14:17 | MHC.CM.PN ---
Per MD rounds no dc today. Patient continues on IV ABX. He still has ss of withdrawal. DP to home tomorrow with resumption of [employer] services. Patients will provide transport home.
[2022-11-25 15:56] LABS: Glucose, Whole Blood 286 mg/dL (60-115)
--- NOTE | 2022-11-25 17:20 | HO.ADDICTCON ---
History of Present Illness Date of Service: 11/25/2022 Chief Complaint: Acute COPD exacerbation Reason for Consult: ? Methadone dosing HPI Narrative: Patient is a 62-year-old Albanian-speaking male currently medically admitted with COPD exacerbation and alcohol withdrawal. Consult requested as patient was admitted over the weekend and methadone had not yet been verified--with patient reporting being on 45 mg daily. Prior to seeing patient attending provider had ordered methadone 30 mg 1 time dose. Patient seen in room 369, awake alert pleasant and engaged in interview. Denies any withdrawal symptoms, reports 30 mg of methadone addressed any discomfort he was experiencing. States that he is prescribed methadone 45 mg daily via [facility] on [facility] in [place]. In terms of alcohol use disorder, patient reports drinking 3-4 nips daily. When asked regarding goals in terms of either cutting down or stopping alcohol use patient reported that he is just going to stop. Was not interested in hearing about additional recovery supports or medications for alcohol use disorder. He states that he does not want take any more pills. Review of Systems Constitutional: Reports as per HPI Diagnostics Vital Signs (24Hr): Vital Signs - 24 hr 11/24/22 18:58 11/24/22 19:42 11/24/22 20:00 Temperature 98.1 F Pulse Rate 65 72 Respiratory Rate 18 20 Blood Pressure 137/74 Pulse Oximetry 97 Oxygen Delivery Method Nasal Cannula Nasal Cannula Oxygen Flow Rate 2 11/25/22 04:00 11/25/22 04:27 11/25/22 04:44 Temperature 96.7 F L 96.7 F L 96.7 F L Pulse Rate 60 60 60 Respiratory Rate 17 17 17 Blood Pressure 164/92 H 164/92 H Pulse Oximetry 94 94 96 Oxygen Delivery Method Room Air Room Air CPAP Oxygen Flow Rate 11/25/22 07:25 11/25/22 08:01 11/25/22 11:25 Temperature 97.5 F Pulse Rate 59 70 61 Respiratory Rate 16 18 18 Blood Pressure 187/86 H Pulse Oximetry 97 Oxygen Delivery Method Nasal Cannula Oxygen Flow Rate 2 11/25/22 13:42 11/25/22 15:20 11/25/22 15:45 Temperature 97.1 F Pulse Rate 72 56 Respiratory Rate 18 20 Blood Pressure 166/78 H 168/88 H Pulse Oximetry 95 Oxygen Delivery Method Room Air Oxygen Flow Rate BMI result Body Mass Index 45.1 Labs 11/23/22 06:17 06/17/23 06:17 Labs: Laboratory Results - last 48 hr 11/24/22 11/24/22 11/24/22 06:53 07:36 11:20 POC Glucose 281 H 280 H 273 H 11/24/22 11/24/22 11/25/22 16:00 19:47 07:24 POC Glucose 290 H 311 H 240 H 11/25/22 11/25/22 11:05 15:50 POC Glucose 259 H 286 H Imaging Radiology Impressions: ITS Impressions Chest X-Ray 11/22/22 17:22 IMPRESSION: No acute cardiopulmonary findings. Venous Duplex 11/22/22 17:38 IMPRESSION: No DVT demonstrated in the bilateral lower extremity. Chest CTA 11/22/22 20:05 IMPRESSION: 1. No central pulmonary emboli. Evaluation of segmental branches is very limited due to motion. 2. Low lung volumes with bronchial wall thickening and mosaic attenuation of the lung parenchyma which could be associated with an infectious or inflammatory process of the small airways. No focal consolidation. 3. Enlarged heart. 4. Enlarged cirrhotic and steatotic liver. VTE: negative Mental Status Exam Mental Status Exam Patient Appearance: Appropriate Level of Consciousness: Awake and Appropriate Patient Behavior: Appropriate and Talkative Medications Medications Current Medications Acetaminophen (Acetaminophen 325 Mg Tablet) 650 mg PO Q6H PRN PRN Reason: Pain, Mild (Pain Scale 1-3) Last Admin: 11/23/22 04:12 Dose: 650 mg Albuterol/Ipratropium (Albuterol/Iprat 2.5/0.5mg 3 Ml Ampul.Neb) 3 ml INHALE RQ4H PRN PRN Reason: Shortness of Breath/Wheezing Albuterol/Ipratropium (Albuterol/Iprat 2.5/0.5mg 3 Ml Ampul.Neb) 3 ml INHALE RQ4H WHILE AWAKE [facility] Last Admin: 11/25/22 15:19 Dose: 3 ml Albuterol/Ipratropium (Albuterol/Iprat 2.5/0.5mg 3 Ml Ampul.Neb) 1 ml INHALE RQ6H [facility] Last Admin: 11/25/22 15:15 Dose: Not Given Azithromycin (Azithromycin 500 Mg Tablet) 500 mg PO Q24H [facility] Last Admin: 11/25/22 06:00 Dose: 500 mg Dextrose (Dextrose 50 % 25 Gm/50 Ml Syringe) 25 gm IVPUSH Q15M PRN; Protocol PRN Reason: per Hypoglycemia Standing Ord. Docusate Sodium (Docusate Sodium 100 Mg Capsule) 100 mg PO DAILY PRN PRN Reason: Constipation Empagliflozin (Empagliflozin 10 Mg Tablet) 10 mg PO DAILY [facility] Last Admin: 11/25/22 08:28 Dose: 10 mg Enoxaparin Sodium (Enoxaparin Sodium 40 Mg/0.4 Ml Syringe) 40 mg SUBCUT Q24H [facility] Last Admin: 11/25/22 00:37 Dose: 40 mg Folic Acid (Folic Acid 1 Mg Tablet) 1 mg PO DAILY [facility] Last Admin: 11/25/22 08:30 Dose: 1 mg Furosemide (Furosemide 20 Mg Tablet) 20 mg PO DAILY [facility]; Protocol Last Admin: 11/25/22 08:27 Dose: 20 mg Glucose (Glucose Gel 15 Gm Gel..Gram.) 15 gm PO Q15M PRN; Protocol PRN Reason: per Hypoglycemia Standing Ord. Hydralazine HCl (Hydralazine Hcl 25 Mg Tablet) 25 mg PO BIDWM [facility]; Protocol Last Admin: 11/25/22 16:52 Dose: 25 mg Ceftriaxone Sodium 1 gm/ (Sodium Chloride) 50 mls @ 100 mls/hr IV Q24H [facility] Last Infusion: 11/25/22 06:37 Dose: Infused Insulin Human Lispro (Insulin Lispro 100 Unit/Ml 3 Ml Vial) 0 unit SUBCUT QIDACHS [facility]; Protocol Last Admin: 11/25/22 16:51 Dose: 6 unit Methylprednisolone Sodium Succinate (Methylprednisolone Sod Succ 125 Mg/2 Ml Vial) 40 mg IVPUSH Q12H [facility] Last Admin: 11/25/22 10:48 Dose: 40 mg Omeprazole (Omeprazole 40 Mg Capsule.Dr) 40 mg PO DAILY@0630 [facility] Last Admin: 11/25/22 06:00 Dose: 40 mg Ondansetron HCl (Ondansetron Hcl 4 Mg/2 Ml Vial) 4 mg IVPUSH Q8H PRN PRN Reason: Nausea and Vomiting Paroxetine HCl (Paroxetine Hcl 20 Mg Tablet) 20 mg PO BEDTIME [facility] Last Admin: 11/24/22 20:34 Dose: 20 mg Pharmacy Consult (Consult Rx Etoh Phenob Po Only) 1 each MISCELLANE ONCE PRN; Protocol PRN Reason: Consult order Phenobarbital (Phenobarbital 30 Mg Tablet) 30 mg PO BID [facility] Stop: 11/27/22 09:01 Phenobarbital (Phenobarbital 30 Mg Tablet) 30 mg PO DAILY [facility] Stop: 11/29/22 09:01 Senna (Sennosides 8.6 Mg Tablet) 17.2 mg PO BEDTIME [facility] Last Admin: 11/24/22 20:34 Dose: 17.2 mg Simethicone (Simethicone 80 Mg Tab.Chew) 160 mg PO BID PRN PRN Reason: abdominal distention Sodium Chloride (0.9 % Sodium Chloride Flush 3 Ml Syringe) 3 ml IVFLUSH QSHIFT [facility] Last Admin: 11/25/22 16:52 Dose: 3 ml Spironolactone (Spironolactone 25 Mg Tablet) 25 mg PO BEDTIME [facility]; Protocol Last Admin: 11/24/22 20:34 Dose: 25 mg Thiamine HCl (Thiamine Hcl 100 Mg Tablet) 100 mg PO DAILY [facility] Last Admin: 11/25/22 08:28 Dose: 100 mg Allergies Allergies Allergy/AdvReac Type Severity Reaction Status Date / Time aspirin [ASPIRIN] Allergy Unknown RASH Verified 08/23/22 10:57 ibuprofen Allergy Unknown nausea and Verified 08/23/22 10:57 vomiting Assessment & Plan Assessment & Plan (1) Opioid use disorder: Status: Acute Code(s): F11.90 - Opioid use, unspecified, uncomplicated Assessment and Plan: No withdrawal symptoms present when seen by this pattern chart writer Methadone dose to be verified in the morning by floor RN and then ordered by attending provider Patient declining any supports were resources regarding alcohol use No additional follow-up needed at this time Total time managing care of this patient today _25___ minutes. [facility] Past Medical History Medical History (Updated 11/25/22 @ 17:25 by Shania Martino CNP) Acute respiratory failure with hypoxia Chronic kidney disease Chronic respiratory failure CKD (chronic kidney disease) stage 3, GFR 30-59 ml/min Congestive heart failure Diabetes History of opiate therapy Liver cirrhosis Morbid obesity Morbid obesity due to excess calories Obesity hypoventilation syndrome DARRIAN (obstructive sleep apnea) DARRIAN treated with BiPAP Restrictive lung disease Family History Family History Mother Cancer Diabetes Social History Social History Household Members: Family Housing: House Do you presently have visiting nurse or other home services: No Alcohol intake: current Alcohol intake frequency: 3 or more drinks per day Alcohol type: beer Patient Tobacco Use Status: Never used Tobacco e-Cigarette/Vaping Use: Never Used Substance Use Type: Heroin service: No Current occupational status: disabled
[2022-11-25 20:44] LABS: Glucose, Whole Blood 380 mg/dL (60-115)
[2022-11-25] MEDS: Spironolactone 25 MG TABLET PO (21:08)
[2022-11-25] MEDS: Sennosides 8.6 MG TABLET 17.2 MG PO (21:08)
[2022-11-25] MEDS: PARoxetine HCL 20 MG TABLET PO (21:09)
[2022-11-25] MEDS: PHENobarbitaL 30 MG TABLET PO (21:09)
[2022-11-26] MEDS: Enoxaparin Sodium 40 MG/0.4 ML SYRINGE SUBCUT (00:30)
[2022-11-26] MEDS: Azithromycin 500 MG TABLET PO (06:31)
[2022-11-26] MEDS: Omeprazole 40 MG CAPSULE.DR PO (06:32)
[2022-11-26 06:34] LABS: Anion Gap 14 (12-20); Blood Urea Nitrogen 41 mg/dL (9-16); Calcium 9.7 mg/dL (8.4-10.2); Carbon Dioxide 27 mmol/L (22-29); Chloride 99 mmol/L (96-108); Creatinine Clr Calc Pharmacy 72.3; Estimated Glomerular Filt Rate > 60; Glucose Random 233 mg/dL (60-115); Potassium 4.8 mmol/L (3.3-5.1); Sodium 135 mmol/L (135-145)
[2022-11-26] MEDS: cefTRIAXone sodium 1 GM in 0.9 % Sodium Chloride 50 ML IV (06:36)
[2022-11-26] MEDS: Albuterol/Iprat 2.5/0.5MG 3 ML AMPUL.NEB INHALE (07:09)
[2022-11-26 07:12] VITALS: PULSE 58; RESP 18; O2SAT 98
[2022-11-26 07:14] VITALS: BP 170/88; PULSE 58; RESP 20; TEMP 36.6; O2SAT 98
[2022-11-26 07:16] LABS: Glucose, Whole Blood 264 mg/dL (60-115)
[2022-11-26] MEDS: Insulin Lispro 100 UNIT/ML 3 ML VIAL SUBCUT (07:45)
[2022-11-26] MEDS: PHENobarbitaL 30 MG TABLET PO (07:46)
[2022-11-26] MEDS: Folic Acid 1 MG TABLET PO (07:46)
[2022-11-26] MEDS: Furosemide 20 MG TABLET PO (07:46)
[2022-11-26] MEDS: hydrALAZINE HCl 25 MG TABLET PO (07:47)
[2022-11-26] MEDS: Empagliflozin 10 MG TABLET PO (07:47)
[2022-11-26] MEDS: Thiamine HCL 100 MG TABLET PO (07:47)
[2022-11-26] MEDS: 0.9 % Sodium Chloride Flush 3 ML SYRINGE IVFLUSH (07:47)
--- NOTE | 2022-11-26 08:10 | P.DS_ITS ---
DS: Providers Provider Date of Service: 11/26/22 Date of admission: 11/22/22 23:52 Primary care physician: Nelly Bach MD Consults: 11/23/22 11:30 Consult to Pulmonology Routine Consulting Provider: [facility] Pulmonology Services Reason for consultation: copd excerebation /pmeumonia Has provider been notified: No 11/25/22 11:24 Addiction Medicine Routine Consulting Provider: Addiction Covering Reason for consultation: on methadone? need titrattion Has provider been notified: No DS: Diagnosis Discharge Diagnosis (1) Opioid use disorder: Status: Acute DS: Summary Hospital Course Hospital Course: Chief Complaint:? shortness of breath ?this is a 62-year-old male past medical history of hypertension, HLD, diabetes, history of alcohol abuse, liver cirrhosis complicated by ascites on diuretics, with SA on CPAP, CKD, and chronic respiratory failure, comes into the hospital with complaints of shortness of breath. Patient is on BiPAP, somnolent after receiving Ativan for respiratory distress, on therefore not a good historian.? She is obtained from ED provider. Patient reports that shortness of breath been going on for 3 weeks, worse on ambulation, has increased cough, and increased sputum production.? Patient also has lower extremity redness? with swelling.? ? Unable to get review of system.? ?on arrival to the ED patient found to be hypoxic satting 84% on room air.? Patient initially placed on nasal cannula, but was then switched to BiPAP and is now on CPAP satting in the 90s.? His vitals otherwise stable Labs are significant for WBC count of 9.6, hemoglobin of 12.9, hematocrit 41, pH of 7.42, CO2 56, bicarb of 27, creatinine of 1.35 which is around his baseline, BNP of 183, troponin of 16.3 that decreased, UA negative, influenza, COVID, and RSV negative ?chest CT angiogram negative for acute PE, low lung volumes with bronchial wall thickening and mosaic attenuation of the lung parenchyma which could be associated with infection or inflammatory process of small airways, no focal consolidation. ?patient treated for COPD exacerbation will be admitted for further management Hospital course: Patient with obesity hypoventilation syndrome, copd and presented with sob and found to have acute exacerbation of copd, initial cxr ? PNA however a CT of chest show no consolitiation. He has been treated with bronchodilators by Neb, corticosteroid and antibioitcs. He is improved, with normal O2 of 98, will discontinue antibiotics given no pneumonia and he will complete 5 day course of steroid. Advise to exercise, watch diet and loose pedro luis ght. Final diagnossis: Acute on chronic respriatory failure due to codp acute exacerbation of copd morbid obesity obesity hypoventilation syndrome Time Spent with Patient Time attestation: Total time managing care of this patient today ____ minutes. Discharge coordination time: Greater than 30 minutes Quality: Safe Use of Opioids Does Pt have an Active Cancer Diagnosis on the Problem List?: No Quality: Stroke Does the patient have a stroke diagnosis?: No Physical Exam Vital Signs: Vital Signs: Last Vital Signs Temp 97.8 F 11/26/22 07:14 Pulse 58 11/26/22 07:14 Resp 20 11/26/22 07:14 BP 170/88 H 11/26/22 07:14 Pulse Ox 98 11/26/22 07:14 O2 Del Method Room Air 11/26/22 07:14 O2 Flow Rate 2 11/25/22 23:00 BMI result Body Mass Index 45.1 DS: Data Data Completed and Pending Completed studies during hospitalization [Text1]: Procedures Detoxification Services for Substance Abuse Treatment (09/28/21) Insertion of Endotracheal Airway into Trachea, Via Natural or Artificial Opening (09/28/21) Insertion of Infusion Device into Superior Vena Cava, Percutaneous Approach (09/28/21) Insertion of Monitoring Device into Upper Artery, Percutaneous Approach (09/28/21) Introduction of Vasopressor into Peripheral Vein, Percutaneous Approach (09/28/21) Monitoring of Arterial Pressure, Peripheral, Percutaneous Approach (09/28/21) Monitoring of Arterial Pulse, Peripheral, Percutaneous Approach (09/28/21) Performance of Cardiac Output, Single, Manual (09/28/21) Respiratory Ventilation, Greater than 96 Consecutive Hours (09/28/21) Ultrasonography of Superior Vena Cava, Guidance (09/28/21) Labs on day of discharge: Laboratory Results - last 24 hr 11/25/22 11/25/22 11/25/22 11:05 15:50 20:40 Sodium Potassium Chloride Carbon Dioxide Anion Gap BUN Creatinine Estim Creat Clear Calc Estimated GFR POC Glucose 259 H 286 H 380 H* Random Glucose Calcium 11/26/22 11/26/22 05:50 07:00 Sodium 135 Potassium 4.8 Chloride 99 Carbon Dioxide 27 Anion Gap 14 BUN 41 H Creatinine 1.19 Estim Creat Clear Calc 72.3 Estimated GFR > 60 POC Glucose 264 H Random Glucose 233 H Calcium 9.7 Preliminary micro results at discharge 11/22/22 17:12 Blood Culture - Preliminary Blood - Venous No growth after 48 hours. 11/22/22 17:12 Blood Culture - Preliminary Blood - Venous No growth after 48 hours. Discharge Plan Discharge Anticipated Discharge Date/Time: 11/26/22 08:05 Patient Disposition: Home, Self-Care Discharge Diagnosis: COPD exacerbation Referrals: Nelly Bach MD [Primary Care Provider] - 1 Week Discharge Medications: New prednisone 20 mg tablet 40 mg PO DAILY Qty: 4 0RF Continued simethicone [Gas Relief (simethicone)] 180 mg capsule 180 mg PO BID PRN (Reason: abdominal distention) Qty: 60 3RF sennosides [Natural Senna Laxative] 8.6 mg tablet 17.2 mg PO BEDTIME Qty: 180 2RF spironolactone 25 mg tablet 1 tab PO BEDTIME paroxetine HCl 20 mg tablet 1 tab PO BEDTIME Jardiance 10 mg tablet 1 tab PO DAILY prazosin 1 mg capsule 1 mg PO BEDTIME PRN (Reason: nightmares) furosemide 20 mg tablet 20 mg PO DAILY omeprazole 40 mg capsule,delayed release(DR/EC) 40 mg PO DAILY@0630 hydralazine 25 mg tablet 25 mg PO BIDWM folic acid 1 mg tablet 1 mg PO DAILY thiamine HCl (vitamin B1) 100 mg tablet 100 mg PO DAILY (DME) Oxygen Home Use Kit See Rx Instructions .Route Rx Instructions: As directed Combivent Respimat 20-100 mcg/actuation mist 1 puff inhalation QID 30 Days Qty: 4 11RF Rx Instructions: space evenly during waking hours (DME) blood-glucose meter [FreeStyle Wildrose Lite] Kit See Rx Instructions Not Applicable BID Qty: 1 Rx Instructions: As directed (DME) FreeStyle Lite Strips Strip See Rx Instructions Not Applicable BID Qty: 10 Rx Instructions: As directed (DME) lancets [TRUEplus Lancets] 33 gauge misc See Rx Instructions Not Applicable BID Qty: 100 Rx Instructions: As directed methadone 10 mg/mL concentrate 45 mg PO DAILY Rx Instructions: Per PT's Daughter - fills at [facility] Diet: Advance to usual diet Activity on Discharge: As tolerated Stand Alone Forms: Patient Portal Discharge page Care Plan Goals: full recovery Health Concerns: copd with exacerbation, obesity Plan of Treatment: take prednisone as recommended for copd, use inhalers as before, follow up with your docotor in a week, exercise, watch diet to loose weight Assessment: as above
--- NOTE | 2022-11-26 10:02 | HE.PHANOTE ---
RE METHADONE [facility] VELASCO 40MG ON 11/21/22, TAKE HOME BOTTLES THROUGH 11/27/22 ROVERTO
--- NOTE | 2022-11-26 10:42 | MHC.CM.PN ---
DP: PT HAS BEEN MEDICALLY CLEARED FOR DC HOME, NO SERVICES. WILL TRANSPORT
--- NOTE | 2022-11-26 11:07 | PC.NURSE ---
reviewed discharge instructions with pt and pts via [employer]ter services by janeen Rubi
== END 2022-11-26 11:14 | disposition home or self-care (01) | DRG 140 ==
LOC: HO.ED 11-23 00:17 → HO.EDOVER 11-23 00:27 → HO.S3 11-23 07:49
PROVIDERS: Internal Medicine; Physician Assistant Medical; Admitting Provider Internal Medicine; Emergency Provider Student in an Organized Health Care Education/Training Program; PCP Internal Medicine; Visit Provider Internal Medicine
DX: J44.0 Chronic obstructive pulmonary disease with (acute) lower respiratory infection (principal); J96.21 Acute and chronic respiratory failure with hypoxia; J18.9 Pneumonia, unspecified organism; E66.2 Morbid (severe) obesity with alveolar hypoventilation; Z99.81 Dependence on supplemental oxygen; J44.1 Chronic obstructive pulmonary disease with (acute) exacerbation; F10.139 Alcohol abuse with withdrawal, unspecified; E78.5 Hyperlipidemia, unspecified; I12.9 Hypertensive chronic kidney disease with stage 1 through stage 4 chronic kidney disease, or unspecified chronic kidney disease; N18.9 Chronic kidney disease, unspecified; E11.22 Type 2 diabetes mellitus with diabetic chronic kidney disease; Z68.42 Body mass index [BMI] 45.0-49.9, adult; F11.20 Opioid dependence, uncomplicated; Y90.6 Blood alcohol level of 120-199 mg/100 ml; Z20.822 Contact with and (suspected) exposure to COVID-19; Z79.899 Other long term (current) drug therapy
CPT/HCPCS: 0241U; 36415; 71045; 71275; 80048; 80076; 80307; 81003; 82803; 82947; 83605; 83690; 83735; 83880; 84484; 85025; 85610; 85730; 87040; 93005; 93970; 94640; 94660; 99285; J0696; J1650; J1940; J1956; J2060; J2930; Q9967

== ENCOUNTER → 2022-12-11 10:07 | Outpatient (BNVA) | payer MEDICAID, SELFPAY | PROVIDERS: PCP Internal Medicine; Visit Provider Internal Medicine Cardiovascular Disease | DX: I10 Essential (primary) hypertension (principal); R60.9 Edema, unspecified | CPT/HCPCS: 99212 ==

== ENCOUNTER 2022-12-20 10:18 | Outpatient (AMB) | payer MEDICAID, SELFPAY ==
--- NOTE | 2022-12-20 10:59 | MHC.OFFVIS ---
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 He has been noticing his breathing has been getting worse now for several months. it is mainly with activity. He denies any shortness of breath while lying flat. The patient has gained weight. He has also noticed lower extremity edema. He has been on diuretics. He does have significant daytime drowsiness. Patient has an [employer] score of 12/24. He naps in the afternoon every day. Patient also gets headaches in the morning. Apparently he was approved for sleep study but he failed to get the equipment due to the pandemic. At this point will really or the sleep study in view of his cardiovascular risk factors in his significant symptoms and findings. In addition to that the patient will have to get a pulmonary function study and chest x-ray to further address the shortness of breath. Will provide with a short-acting beta agonist as a trial to see if he gets any relief after using it. The patient is also plan to undergo a colonoscopy. Will have him undergo pulmonary function studies and follow-up with me 1st and then will give him the likely okay to wait for with the colonoscopy. 12/24/2021 the patient is here for a pulmonary follow-up visit. the patient ended up admitted to the hospital with acute respiratory failure, pneumonia. His course complicated by cardiac arrest needing ACLS. The patient is admitted to the ICU intubated. He was treated for severe community-acquired pneumonia. The patient also developed renal failure. He was able to be liberated from the ventilator. He required oxygen upon discharge. Since we last spoke the patient did undergo his sleep study. The patient does have significant sleep apnea. Therefore, in view of his increased cardiac vascular comorbidities and persistent daytime drowsiness with an elevated [employer] score of 12/24 the patient needs to start APAP therapy as well as possible. I will make arrangements for him to start once available. In the meantime he is carrying heavy tank to his appointments using 2 L with activity. During the office visit we did do a brief walking oximetry the patient actually qualify for a conserving device with activity which would be a lot better for him. Therefore I will submit a prescription for a conserving device to be provided by his oxygen DME company. 04/22/2022 the patient is here for a pulmonary follow-up visit. Since we last spoke the patient had a bad fall and fractures his elbow. Now he has a sling. He still needs to be evaluated by orthopedics to see he will require surgery. In the meantime he has been using the oxygen with activity and also using the oxygen at nighttime. The oxygen therapy has been affecting beneficial. He still has daytime drowsiness with elevated EPWORTH 11/24. Patient will benefit from going back on CPAP although difficult for him to undergo this intervention while trying to deal with the fractured elbow. Therefore will allow him to follow-up with his orthopedic doctor and recover from the elbow. The patient will return in 3 months time. At that point we will likely have him undergo an in-lab sleep study to assess his CPAP requirements and also his oxygen needs. From a respiratory status the patient has also been using inhalers with good response. He has not had to use the nebulized therapy. 08/23/2022 the patient is here for pulmonary follow-up visit. He still has not gotten his CPAP. He did have his cast off for the I will fracture. Does feel better although he is having hard time extending his arm. He is concerned about it. Needs to follow up with surgeon. In the meantime the patient has been struggling with sleep. He does have the oxygen at home. He does have increased daytime drowsiness with an [employer] score elevated at 11 over 24. He is eager to get back on CPAP since he is very effective for him. He did have an in-lab study which I personally reviewed with him. It appears that he has moderate sleep apnea with significant tachycardia and hypoxia during the study. He was then placed on CPAP titration and subsequently said waiting to BiPAP. He had significant limb movements and he actually fell out of bed. Thank Goodness he did not hurt his right elbow. The patient had a difficult study since she was moving so much. Still, it appears that BiPAP along with oxygen will be the proper therapy. The will start him on BiPAP 20/10 with 1 L and will wait for the final read on the sleep study for further recommendations. The patient is to call the office if he has not heard from the [employer] in about 2-3 weeks. In addition to that he is to bring the machine in when he comes in for his follow-up visit. 12/20/2022 the patient is here for a pulmonary follow-up visit. He was recently hospitalized. The patient was started on BiPAP based on his acute on chronic hypercarbic respiratory failure. He is responding well to it. Although he feels like he needs oxygen. The prescription was for 1 L oxygen with the BiPAP. In the urine he is not using it that way. Therefore out did call the [employer] in order for him to get the adapter in order to at the 1 L oxygen. Then we can always check his overnight testing to make sure that he is getting adequate oxygenation as we can always increase it to 2 L. The patient also use oxygen with activity during the daytime. He was ambulated during the visit and the desaturate on room air. The patient did qualify for 3 L pulse with activity. This will provide better portability for him using a conserving device. She continues uses respiratory therapy in continue to use his diuresis as prescribed. During that recent hospitalization in November the patient did undergo a CTA that ruled out any PE or any parenchymal lung disease. 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 The family was concerned about that. I did give him the information for them to follow-up with primary care. [facility] Medical History (Updated 12/11/22 @ 11:00 by Andrea Nina MD) Acute respiratory failure with hypoxia Chronic kidney disease Chronic respiratory failure CKD (chronic kidney disease) stage 3, GFR 30-59 ml/min Congestive heart failure Diabetes History of opiate therapy Liver cirrhosis Morbid obesity Morbid obesity due to excess calories Obesity hypoventilation syndrome DARRIAN (obstructive sleep apnea) DARRIAN treated with BiPAP Restrictive lung disease Surgical History (Updated 12/11/22 @ 10:12 by VALE Alvarez) No pertinent past surgical history Family History Mother Cancer Diabetes Social History Household Members: Family Housing: House Do you presently have visiting nurse or other home services: No Alcohol intake: current Alcohol intake frequency: 3 or more drinks per day Alcohol type: beer Patient Tobacco Use Status: Never used Tobacco e-Cigarette/Vaping Use: Never Used Substance Use Type: Heroin service: No Current occupational status: disabled Review of Systems Const Reports daytime sleepiness, Reports difficulty sleeping and Denies weakness ENT Denies dizziness Card Denies chest pain, Denies chest pain with activity, Denies syncope, Denies rapid heart rate, Denies pedal edema, Denies edema, Denies leg edema, Denies lightheadedness, Denies palpitations, Denies dyspnea, Denies dyspnea on exertion and Denies orthopnea Resp Denies cough, Denies dyspnea and Denies dyspnea on exertion GI Denies hematochezia and Denies change in stool character Musc Reports abnormal gait, Reports myalgias, Reports deformity, Reports arthralgias and Reports tingling Neuro Reports abnormal gait, Denies dizziness, Denies syncope, Reports tingling and Denies weakness Endo Denies palpitations Physical Exam Vital Signs: Last Vital Signs Pulse 71 12/20/22 11:00 Pulse Ox 93 12/20/22 11:00 Oxygen Delivery Method Room Air 12/20/22 11:00 BMI result Body Mass Index 43.9 Const General: cooperative, comfortable and no acute distress Nutritional Appearance: well nourished Orientation/consciousness: patient oriented x3 HEENT Head: Yes normal to inspection, Yes normocephalic and Yes atraumatic Eyes General: appearance normal, both eyes and all related structures Neck Neck: Yes normal visual inspection and Yes no JVD Thyroid: Thyroid normal Chest Chest palpation & inspection: normal inspection of the chest Resp Effort & Inspection: normal respiratory effort Auscultation: no crackles, no rales, no rhonchi, no wheezes and diminished lung sounds Cardio Jugular venous distension: no JVD Rate: regular rate Rhythm: regular rhythm Heart sounds: S1 normal heart sound present, S2 normal heart sound present, no gallops, no murmurs and no rubs Peripheral pulses: radial pulses present, dorsalis pedis present and other (1+ nonpitting bilateral lower extremity edema) GI Inspection: Yes normal to inspection, No distended and Yes obesity Auscultation: normal bowel sounds Skin General skin exam: elasticity normal, turgor normal and dry skin Neuro General: patient oriented x3 Extrem General: Yes normal to inspection and Yes other (cast) Right lower extremity: edema Left lower extremity: edema Psych Appearance: grossly normal Mental Status: mental status grossly normal Speech and movement: Normal speech and movement present Affect: normal affect Attitude: cooperative Thought process: Normal thought process present Thought content: Normal thought content present Insight: Good insight present (Psych) Judgement: Good judgement present (Psych) Office Procedures 6 Minute Walk Time:: 09:10 SPO2 % at rest: 93 Pulse at rest: 87 SPO2 % during excercise: 88 Pulse during excercise: 96 Distance in yards walked: 150 Gregory Score: 6 Supplemental Oxygen: The patient was ambulated on room air. He did desaturate down to 88% and quickly will place him on portable oxygen concentrator at 2 L pulse. His oxygen pulse ox took some time to recover. But with activity on the 2 L pulse was only 90%. Therefore placement on 3L pulse maintain a pulse ox of 94% with activity. We will request a conserving device ideally with the cylinders and her forearm to have better portability. [id number] - 6 Minute Walk Assessment & Plan Assessment & Plan (1) DARRIAN (obstructive sleep apnea): Code(s): G47.33 - Obstructive sleep apnea (adult) (pediatric) (2) Dyspnea: Code(s): R06.00 - Dyspnea, unspecified Qualifiers: Dyspnea type: dyspnea on exertion Qualified Code(s): R06.00 - Dyspnea, unspecified (3) Chronic respiratory failure: Code(s): J96.10 - Chronic respiratory failure, unspecified whether with hypoxia or hypercapnia Qualifiers: Respiratory failure complication: hypoxia Qualified Code(s): J96.11 - Chronic respiratory failure with hypoxia Plan continue BIPAP continue oxygen supplementation with sleep while on BIPAP Continue with diuresis as tolerated follow-up in 3-4 months with the BIPAP Medications: Discontinued omeprazole 40 mg PO QAM 90 caps 3RF Coding Level of Care Code Est Pt Level 4 (93869) Diagnoses DARRIAN (obstructive sleep apnea) G47.33 Dyspnea R06.00 Dyspnea type: dyspnea on exertion Chronic respiratory failure J96.11 Respiratory failure complication: hypoxia CPT Codes Coding ([id number]) Time Spent (min) 20
[2022-12-20 11:00] VITALS: PULSE 71; O2SAT 93; BMI 43.9
[2022-12-23 09:12] VITALS: PULSE 87; O2SAT 93
== END 2022-12-20 11:35 | disposition home or self-care (01) ==
PROVIDERS: PCP Internal Medicine; Visit Provider Hospitalist
DX: G47.33 Obstructive sleep apnea (adult) (pediatric) (principal); J96.11 Chronic respiratory failure with hypoxia
CPT/HCPCS: 94618; 99214

== ENCOUNTER → 2022-12-20 10:18 | Outpatient (BNVA) | payer MEDICAID, SELFPAY | PROVIDERS: Visit Provider Hospitalist | DX: G47.33 Obstructive sleep apnea (adult) (pediatric) (principal); J96.11 Chronic respiratory failure with hypoxia; R06.00 Dyspnea, unspecified | CPT/HCPCS: 94618; 99212 ==

== ENCOUNTER 2023-02-20 10:41 | Outpatient (REF) | payer MEDICAID, SELFPAY ==
[2023-02-20 11:34] LABS: Anion Gap 14 (12-20); Blood Urea Nitrogen 17 mg/dL (9-16); Calcium 9.8 mg/dL (8.4-10.2); Carbon Dioxide 30 mmol/L (22-29); Chloride 97 mmol/L (96-108); Estimated Glomerular Filt Rate > 60; Glucose Random 148 mg/dL (60-115); Potassium 4.5 mmol/L (3.3-5.1); Sodium 136 mmol/L (135-145)
[2023-02-20 11:41] LABS: B Type Natriuretic Peptide 146 pg/mL (<100)
== END 2023-02-20 10:42 | disposition home or self-care (01) ==
LOC: HO.LAB 10:41
PROVIDERS: PCP Internal Medicine; Visit Provider Internal Medicine
DX: I50.32 Chronic diastolic (congestive) heart failure (principal)
CPT/HCPCS: 36415; 80048; 83880

== ENCOUNTER 2023-04-22 09:55 | Outpatient (AMB) | payer MEDICAID, SELFPAY ==
[2023-04-22 09:57] VITALS: BP 120/72; PULSE 67; BMI 44.3
--- NOTE | 2023-04-22 09:57 | A.OFFVIS_ITS ---
Intake Vital Signs 04/22/23 09:57 Height 5 ft 2 in Weight 242 lb 1.081 oz BMI 44.3 BP 120/72 Blood Pressure Location Lt brachial Position Sitting Pulse 67 Pulse Source Pulse Oximeter Intake Visit Reasons: 4 mth f/up KM Nursing Secretary Required: Yes Nursing Secretary Name: hanny carroll [id number] Type Bar And Segment Assembler: Type Bar And Segment Assembler Present Accompanied by: Significant Other Allergies aspirin [ASPIRIN] Allergy (Unknown, Verified 04/22/23 10:00) RASH ibuprofen Allergy (Unknown, Verified 04/22/23 10:00) nausea and vomiting Medication List - Last Reconciled 04/22/23 by JUDY Licona blood sugar diagnostic (FreeStyle Lite Strips) As directed blood-glucose meter (FreeStyle [place] Lite kit) As directed empagliflozin (Jardiance) 1 tab PO DAILY furosemide 20 mg PO DAILY hydralazine 25 mg PO BIDWM ipratropium-albuterol 20-100 mcg/actuation (Combivent Respimat) 1 puff inhalation QID 30 days lancets (TRUEplus Lancets) As directed methadone 40 mg PO DAILY omeprazole 40 mg PO DAILY@0630 Oxygen Home Use As directed paroxetine HCl 1 tab PO BEDTIME prazosin 1 mg PO BEDTIME PRN sennosides (Natural Senna Laxative) 17.2 mg (2 x 8.6 mg) PO BEDTIME spironolactone 1 tab PO BEDTIME thiamine HCl (vitamin B1) 100 mg PO DAILY HPI 4 mth f/up KM HPI Details Jesus is a 62-year-old male with past medical history of diabetes, morbidly obese, CKD, bradycardia, diastolic heart failure who presents for follow-up. Today he reports he has been feeling good since his last visit in December. He denies having any shortness of breath though he visibly has increased work of breathing in the office. He will get short of breath with ambulation. He wears oxygen as needed at home and wear CPAP at night. No chest discomfort at rest or with activity, palpitations, presyncope, syncope, PND, orthopnea. He does have mild lower leg edema which he reports as being less than prior reports. His friend is present. Certified sports equipment repairer was used. [facility] Medical History (Updated 12/11/22 @ 11:00 by Andrea Nina MD) Restrictive lung disease Obesity hypoventilation syndrome DARRIAN treated with BiPAP Morbid obesity Chronic respiratory failure Acute respiratory failure with hypoxia History of opiate therapy Morbid obesity due to excess calories CKD (chronic kidney disease) stage 3, GFR 30-59 ml/min Liver cirrhosis DARRIAN (obstructive sleep apnea) Chronic kidney disease Congestive heart failure Diabetes Surgical History No pertinent past surgical history Family History Mother Cancer Diabetes Social History Household Members: Family Housing: House Do you presently have visiting nurse or other home services: No Alcohol intake: current Alcohol intake frequency: 3 or more drinks per day Alcohol type: beer Patient Tobacco Use Status: Never used Tobacco e-Cigarette/Vaping Use: Never Used Substance Use Type: Heroin service: No Current occupational status: disabled Review of Systems Const All systems reviewed & are unremarkable except as noted in HPI and below ENT Denies dizziness Card Denies chest pain, Denies chest pain at rest, Denies chest pain with activity, Denies rapid heart rate, Denies pedal edema, Denies edema, Denies leg edema, Denies lightheadedness, Denies palpitations, Reports dyspnea, Denies dyspnea on exertion and Denies orthopnea Resp Denies cough, Reports dyspnea and Denies dyspnea on exertion GI Denies hematochezia and Denies change in stool character Musc Details: leg edema improving Denies abnormal gait, Reports limited range of motion, Reports muscle cramps, Denies muscle weakness, Denies numbness, Denies radiating pain into limb, Denies stiffness and Denies tingling Neuro Denies abnormal gait, Denies dizziness, Denies numbness and Denies tingling Endo Denies palpitations Physical Exam Vital Signs: Last Vital Signs Pulse 67 04/22/23 09:57 BP 120/72 04/22/23 09:57 BMI result Body Mass Index 44.3 Const Other: morbidly obese, speech difficult to understand General: cooperative, healthy appearing, comfortable and no acute distress Orientation/consciousness: patient oriented x3 Neck Neck: Yes normal visual inspection Resp Other: increased work of breathing noted however pt denies feeling any sob Auscultation: clear to auscultation bilaterally, no crackles, no rales, no rhonchi and no wheezes Cardio Jugular venous distension: no JVD Rate: regular rate Rhythm: regular rhythm Heart sounds: S1 normal heart sound present, S2 normal heart sound present, no murmurs and no rubs Neuro General: patient oriented x3 Extrem Other: tight mildly pitting edema in lower legs bilaterally Psych Appearance: grossly normal Mental Status: mental status grossly normal Speech and movement: Normal speech and movement present Assessment & Plan Assessment & Plan (1) Congestive heart failure: Code(s): I50.9 - Heart failure, unspecified Plan: History of diastolic heart failure. Last echocardiogram done 10/01/2021 showing EF 61%, no valve abnormalities, unable to determine diastolic function. He has chronic shortness of breath and follows with Dr. Ridley for chronic respiratory failure. He wears oxygen in the daytime as needed at home and wears CPAP during night time. His increased work of breathing today even when sitting but tells me that his breathing is fine. He does report shortness of breath with ambulation. On exam he does not have rales, JVD is difficult to assess due to his size. He has mild, nonpitting edema of his lower extremities. Overall he tells me swelling has improved. He is currently on Lasix and Aldactone. Labs done 02/20/2023 showed potassium 4.5, creatinine 1.09, BNP 146. No medication changes made at this time. Spent time reviewing signs and symptoms of heart failure. Discussed low-salt diet, leg elevation. Emergency care if ever needed for symptoms. Cardiology follow-up in 4 months, sooner if needed to evaluate for any increase in fluid retention. (2) Sinus bradycardia: Code(s): R00.1 - Bradycardia, unspecified Plan: History of sinus bradycardia. Currently not on any rate slowing agents. Holter monitor was done on 02/25/2022 for 4 days showed sinus rhythm with average heart rate 62, heart rate below 60 35% of the time. Today his heart rate is 67. He denies any presyncope, syncope, falls. Would continue to avoid rate slowing agents. (3) DARRIAN (obstructive sleep apnea): Code(s): G47.33 - Obstructive sleep apnea (adult) (pediatric) Plan: He reports compliance with his mask each night (4) Peripheral edema: Code(s): R60.9 - Edema, unspecified Plan: Mild lower leg edema. He says this is improved from his prior visit. Continues on to diuretic agents. No indication for change at this time Coding Level of Care Code Est Pt Level 4 (36862) Diagnoses Congestive heart failure I50.9 Sinus bradycardia R00.1 DARRIAN (obstructive sleep apnea) G47.33 Peripheral edema R60.9 Time Spent (min) 28
== END 2023-04-22 10:23 | disposition home or self-care (01) ==
PROVIDERS: PCP Internal Medicine; Visit Provider Nurse Practitioner Family
DX: I50.9 Heart failure, unspecified (principal); R00.1 Bradycardia, unspecified; G47.33 Obstructive sleep apnea (adult) (pediatric); R60.9 Edema, unspecified
CPT/HCPCS: 99214

== ENCOUNTER → 2023-04-22 09:55 | Outpatient (BNVA) | payer MEDICAID, SELFPAY | PROVIDERS: PCP Internal Medicine; Visit Provider Nurse Practitioner Family | DX: I50.9 Heart failure, unspecified (principal); R00.1 Bradycardia, unspecified; R60.9 Edema, unspecified; G47.33 Obstructive sleep apnea (adult) (pediatric) | CPT/HCPCS: 99212 ==

== ENCOUNTER 2023-04-25 11:04 | Outpatient (AMB) | payer MEDICAID, SELFPAY ==
[2023-04-25 11:10] VITALS: PULSE 61; O2SAT 91; BMI 43.9
--- NOTE | 2023-04-25 11:10 | A.OFFVIS_ITS ---
Intake Vital Signs 04/25/23 11:10 Height 5 ft 2 in Weight 240 lb BMI 43.9 Pulse 61 Pulse Source Pulse Oximeter Pulse Oximetry (%) 91 L Oxygen Delivery Method Room Air Intake Visit Reasons: darrian Filler Shredder Machine Required: No Allergies aspirin [ASPIRIN] Allergy (Unknown, Verified 04/25/23 11:13) RASH ibuprofen Allergy (Unknown, Verified 04/25/23 11:13) nausea and vomiting HPI HPI Comments History of Present Illness Details The patient is a 62 a [id number] gentleman with multiple julienne rbidities in cardiovascular risk factors who presents with worsening dyspnea on exertion. He has been noticing his breathing has been getting worse now for several months. it is mainly with activity. He denies any shortness of breath while lying flat. The patient has gained weight. He has also noticed lower extremity edema. He has been on diuretics. He does have significant daytime drowsiness. Patient has an Valliant score of 12/24. He naps in the afternoon every day. Patient also gets headaches in the morning. Apparently he was approved for sleep study but he failed to get the equipment due to the pandemic. At this point will really or the sleep study in view of his cardiovascular risk factors in his significant symptoms and findings. In addition to that the patient will have to get a pulmonary function study and chest x-ray to further address the shortness of breath. Will provide with a short-acting beta agonist as a trial to see if he gets any relief after using it. The patient is also plan to undergo a colonoscopy. Will have him undergo pulmonary function studies and follow-up with me 1st and then will give him the likely okay to wait for with the colonoscopy. 12/24/2021 the patient is here for a pulmonary follow-up visit. the patient ended up admitted to the hospital with acute respiratory failure, pneumonia. His course complicated by cardiac arrest needing ACLS. The patient is admitted to the ICU intubated. He was treated for severe community-acquired pneumonia. The patient also developed renal failure. He was able to be liberated from the ventilator. He required oxygen upon discharge. Since we last spoke the patient did undergo his sleep study. The patient does have significant sleep apnea. Therefore, in view of his increased cardiac vascular comorbidities and persistent daytime drowsiness with an elevated Valliant score of 12/24 the patient needs to start APAP therapy as well as possible. I will make arrangements for him to start once available. In the meantime he is carrying heavy tank to his appointments using 2 L with activity. During the office visit we did do a brief walking oximetry the patient actually qualify for a c onserving device with activity which would be a lot better for him. Therefore I will submit a prescription for a conserving device to be provided by his oxygen DME company. 04/22/2022 the patient is here for a pulmonary follow-up visit. Since we last spoke the patient had a bad fall and fractures his elbow. Now he has a sling. He still needs to be evaluated by orthopedics to see he will require surgery. In the meantime he has been using the oxygen with activity and also using the oxygen at nighttime. The oxygen therapy has been affecting beneficial. He still has daytime drowsiness with elevated EPWORTH 11/24. Patient will benefit from going back on CPAP although difficult for him to undergo this intervention while trying to deal with the fractured elbow. Therefore will allow him to follow-up with his orthopedic doctor and recover from the elbow. The patient will return in 3 months time. At that point we will likely have him undergo an in-lab sleep study to assess his CPAP requirements and also his oxygen needs. From a respiratory status the patient has also been using inhalers with good response. He has not had to use the nebulized therapy. 08/23/2022 the patient is here for pulmon ventura follow-up visit. He still has not gotten his CPAP. He did have his cast off for the I will fracture. Does feel better although he is having hard time extending his arm. He is concerned about it. Needs to follow up with surgeon. In the meantime the patient has been struggling with sleep. He does have the oxygen at home. He does have increased daytime drowsiness with an Valliant score elevated at 11 over 24. He is eager to get back on CPAP since he is very effective for him. He did have an in-lab study which I personally reviewed with him. It appears that he has moderate sleep apnea with significant tachycardia and hypoxia during the study. He was then placed on CPAP titration and subsequently said waiting to BiPAP. He had significant limb movements and he actually fell out of bed. Thank Goodness he did not hurt his right elbow. The patient had a difficult study since she was moving so much. Still, it appears that BiPAP along with oxygen will be the p marina therapy. The will start him on BiPAP 20/10 with 1 L and will wait for the final read on the sleep study for further recommendations. The patient is to call the office if he has not heard from the [employer] in about 2-3 weeks. In addition to that he is to bring the machine in when he comes in for his follow- up visit. 12/20/2022 the patient is here for a pulm onary follow-up visit. He was recently hospitalized. The patient was started on BiPAP based on his acute on chronic hypercarbic respiratory failure. He is responding well to it. Although he feels like he needs oxygen. The prescription was for 1 L oxygen with the BiPAP. In the urine he is not using it that way. Therefore out did call the [employer] in order for him to get the adapter in order to at the 1 L oxygen. Then we can always check his overnight testing to make sure that he is getting adequate oxygenation as we can always increase it to 2 L. The patient also use oxygen with activity during the daytime. He was ambulated during the visit and the desaturate on room air. The patient did qualify for 3 L pulse with activity. This will provide better portability for him using a conserving device. She continues uses respiratory therapy in continue to use his diuresis as prescribed. During that recent hospitalization in November the patient did undergo a CTA that ruled out any PE or any parenchymal lung disease. 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 The family was concerned about that. I did give him the information for them to follow-up with primary care. 04/25/2023 the patient is here for a pulmonary follow-up visit. The patient otherwise has been doing better. Has been using the BiPAP at night with the oxygen with good effect. He does use it for more than 4 hours a night. Unfortunately though he has not been getting any supplies. I did reach out to the [employer] to see the status of supplies for him. in the meantime the patient is carrying a large oxygen tank. His continuous flow. We did taken for 6 minute walk test with a conserving device trial any actually did well on 2 L pulse maintaining a pulse ox of 90 2%. Therefore, I do believe that based on his mental delay, difficulty handling the oxygen tanks along with the knee of better portability outside of the home I do believe that he portable oxygen concentrator will be the ideal for the patient in order to improve his portability and not have any complications from the oxygen tanks. While in the room the patient in his infertility medical assistant will having some issues with a lose oxygen tank valve therefore it will be very important thing to switch him over to a portable oxygen concentrator where be a lot easier for him to use it outside of the home. In the home he already has a concentrator which she does very well with and is able to switch it over to BiPAP with the help of his infertility medical assistant. [facility] Medical History (Updated 04/27/23 @ 22:02 by Noman Ridley MD) Chronic hypoxic respiratory failure Restrictive lung disease Obesity hypoventilation syndrome DARRIAN treated with BiPAP Morbid obesity Chronic respiratory failure Acute respiratory failure with hypoxia History of opiate therapy Morbid obesity due to excess calories CKD (chronic kidney disease) stage 3, GFR 30-59 ml/min Liver cirrhosis DARRIAN (obstructive sleep apnea) Chronic kidney disease Congestive heart failure Diabetes Surgical History No pertinent past surgical history Family History Mother Cancer Diabetes Social History Household Members: Family Housing: House Do you presently have visiting nurse or other home services: No Alcohol intake: current Alcohol intake frequency: 3 or more drinks per day Alcohol type: beer Patient Tobacco Use Status: Never used Tobacco e-Cigarette/Vaping Use: Never Used Substance Use Type: Heroin service: No Current occupational status: disabled Review of Systems Const Reports daytime sleepiness, Reports difficulty sleeping and Denies weakness ENT Denies dizziness Card Denies chest pain, Denies chest pain with activity, Denies syncope, Denies rapid heart rate, Denies pedal edema, Denies edema, Denies leg edema, Denies lightheadedness, Denies palpitations, Denies dyspnea, Denies dyspnea on exertion and Denies orthopnea Resp Denies cough, Denies dyspnea and Denies dyspnea on exertion GI Denies hematochezia and Denies change in stool character Musc Reports abnormal gait, Reports myalgias, Reports deformity, Reports arthralgias and Reports tingling Neuro Reports abnormal gait, Denies dizziness, Denies syncope, Reports tingling and Denies weakness Endo Denies palpitations Physical Exam Vital Signs: Last Vital Signs Pulse 61 04/25/23 11:10 Pulse Ox 91 L 04/25/23 11:10 Oxygen Delivery Method Room Air 04/25/23 11:10 BMI result Body Mass Index 43.9 Const Other: morbidly obese, speech difficult to understand General: cooperative, healthy appearing, comfortable and no acute distress Orientation/consciousness: patient oriented x3 Neck Neck: Yes normal visual inspection Resp Other: increased work of breathing noted however pt denies feeling any sob Auscultation: no crackles, no rales, no rhonchi, no wheezes and diminished lung sounds Cardio Jugular venous distension: no JVD Rate: regular rate Rhythm: regular rhythm Heart sounds: S1 normal heart sound present, S2 normal heart sound present, no murmurs and no rubs Neuro General: patient oriented x3 Extrem Other: tight mildly pitting edema in lower legs bilaterally Psych Appearance: grossly normal Mental Status: mental status grossly normal Speech and movement: Normal speech and movement present Office Procedures 6 Minute Walk Time:: 22:05 SPO2 % at rest: 93 Pulse at rest: 78 SPO2 % during excercise: 88 Pulse during excercise: 90 Distance in yards walked: 150 Gregory Score: 7 Supplemental Oxygen: desaturated on RA with activity to 88%, then placed on 2L/pulse and maintained pox 92% with acitivity. [id number] - 6 Minute Walk Assessment & Plan Assessment & Plan (1) DARRIAN (obstructive sleep apnea): Code(s): G47.33 - Obstructive sleep apnea (adult) (pediatric) (2) Dyspnea: Code(s): R06.00 - Dyspnea, unspecified Qualifiers: Dyspnea type: dyspnea on exertion Qualified Code(s): R06.00 - Dyspnea, unspecified (3) Chronic respiratory failure: Code(s): J96.10 - Chronic respiratory failure, unspecified whether with hypoxia or hypercapnia Qualifiers: Respiratory failure complication: hypoxia Qualified Code(s): J96.11 - Chronic respiratory failure with hypoxia (4) Chronic hypoxic respiratory failure: Code(s): J96.11 - Chronic respiratory failure with hypoxia (5) Congestive heart failure: Code(s): I50.9 - Heart failure, unspecified Qualifiers: Heart failure type: systolic Heart failure chronicity: chronic Qualified Code(s): I50.22 - Chronic systolic (congestive) heart failure Plan continue BIPAP, needs supplies (APRIA) continue oxygen supplementation with sleep while on BIPAP Continue with diuresis as tolerated Oxygen revision: please provide POC 2L/pulse with activity to provide better portability and avoid complaications with mis-handling of the oxygen tanks follow-up in 4 months with the BIPAP Coding Level of Care Code Est Pt Level 4 (82120) Diagnoses DARRIAN (obstructive sleep apnea) G47.33 Dyspnea on exertion R06.00 Dyspnea type: dyspnea on exertion Chronic respiratory failure with hypoxia J96.11 Respiratory failure complication: hypoxia Chronic hypoxic respiratory failure J96.11 Chronic systolic congestive heart failure I50.22 Heart failure type: systolic Heart failure chronicity: chronic CPT Codes Coding ([id number]) Time Spent (min) 18
[2023-04-27 22:05] VITALS: PULSE 78; O2SAT 93
== END 2023-04-25 11:30 | disposition home or self-care (01) ==
PROVIDERS: PCP Internal Medicine; Visit Provider Hospitalist
DX: G47.33 Obstructive sleep apnea (adult) (pediatric) (principal); J96.11 Chronic respiratory failure with hypoxia; I50.22 Chronic systolic (congestive) heart failure
CPT/HCPCS: 94618; 99214

== ENCOUNTER → 2023-04-25 11:04 | Outpatient (BNVA) | payer MEDICAID, SELFPAY | PROVIDERS: PCP Internal Medicine; Visit Provider Hospitalist | DX: G47.33 Obstructive sleep apnea (adult) (pediatric) (principal); J96.11 Chronic respiratory failure with hypoxia; R06.00 Dyspnea, unspecified; I50.22 Chronic systolic (congestive) heart failure | CPT/HCPCS: 94618; 99212 ==

== ENCOUNTER 2023-05-07 13:00 | Outpatient (RCR) | payer MEDICAID, SELFPAY ==
[2023-04-14 13:12] VITALS: BP 121/63; PULSE 66; O2SAT 87
--- NOTE | 2023-04-14 15:00 | MHC.PT.EP ---
[facility] [place] Office [place] Office [place] Office [address] Clark Bajwa [address] [phone] F: [phone] F: [phone] F: [phone] F: [phone] Physical Therapy Plan of Care Date of Evaluation: 04/14/23 Date of Surgery: Diagnosis: gait disturbance, balance concerns, bilateral knee osteoarthritis Assessment: Isael is a 62 y.o. 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 who is referred to PT by Dr. Nelly Bach MD, with Dx of gait disturbance, balance concerns, bilateral knee osteoarthritis. Patient impairments include reduced oxygen, poor posture and use of AD, poor balance, weakness and impaired coordination post stroke. Patient current functional limitations are standing, walking, bending, turning, stair use (1 flight), unable to bathe or dress without assist. Patient will benefit from skilled PT to to preserve current capabilities and prevent deterioration of symptoms, as well at prevent future falls and improve overall mobility. Frequency and Duration: The patient will be seen 2x/week for 4 weeks Short Term Goals: 2 weeks Patient demonstrates consistency and independence with HEP to self manage symptoms. Supervisor Of Officials Goals: 4 weeks Patient is able to perfom sit to stand with SPV to RW and ambulate 20 ft with good form and without cues to walk between rooms. Patient is able to perform step to pattern up/down stairs with CGA with use of railings for safety at home. Treatment Plan: Modalities to reduce pain, spasms and effusion. Manual therapy to restore motion and function. Therapeutic exercise to improve strength and flexibility. Neuromuscular re-education for posture and balance. Therapeutic activities to return to functional activities of daily living. Electronically signed by: Lita Betancourt, PT, DPT Please sign and return to therapist. Thank you for your referral.
--- NOTE | 2023-07-15 14:19 | MHC.PT.DC ---
[facility] [place] Office [place] Office [place] Office [address] Clark Bajwa [address] [phone] F: [phone] F: [phone] F: [phone] F: [phone] Physical Therapy Discharge Report Diagnosis: gait disturbance, balance concerns, bilateral knee osteoarthritis Date of Surgery: Date of Evaluation: 04/14/23 Date of Discharge: 07/15/23 Treatments to Date: 6 Cancellations to Date: 1 No Shows to Date: 1 Discharge Status: Improved Function Patient Elected to Stop Discharge Summary: Isael did well with PT interventions, improved gait utilizing RW with 2 wheels to help offload painful knee as well which bothered him the most during his sessions. We also discuss changes in oxygen with mobility to accommodate oxygen needs. He did not show to his last scheduled PT session. His last treatment was on 05/07/23 and the assesment read, This session I increased his oxygen to 3L with standing and ambulation due to he began to desaturate below 90 with 2L. I tried gait with cane today, but he tends to only use it for balance rather than to offload painful L knee. He did better with RW. He is discharged from PT at this time as he ceased attending PT on his own accord. Electronically signed by: Lita Betancourt, PT, DPT Please sign and return to therapist. Thank you for your referral.
== END 2023-07-15 14:19 | disposition home or self-care (01) ==
LOC: HO.PT 13:00
PROVIDERS: PCP Internal Medicine; Visit Provider Internal Medicine
DX: R26.9 Unspecified abnormalities of gait and mobility (principal); M17.0 Bilateral primary osteoarthritis of knee
CPT/HCPCS: 97110; 97116; 97163; 97535

== ENCOUNTER 2023-08-08 10:21 | Inpatient (IN) | payer MEDICAID, SELFPAY ==
[2023-08-08] VITALS (16 sets, daily range): BP systolic 112–180; BP diastolic 54–111; PULSE 47–84; RESP 13–25; TEMP 36–37.2; O2SAT 88–99; BMI 39.1; BMI 39.0; BMI 38.4
--- NOTE | ~2023-08-08 | XR_ITS ---
EXAMINATION: XR CHEST CLINICAL INFORMATION: Chest pain COMPARISON: November 1622 TECHNIQUE: Frontal view of the chest was obtained. FINDINGS: There is prominence of cardiomediastinal silhouette due to cardiomegaly. There is mild vascular redistribution suggestive for early CHF. No pleural effusions seen. XR/XR chest 1V IMPRESSION: Cardiomegaly and vascular redistribution
--- NOTE | ~2023-08-08 | CT_ITS ---
EXAMINATION: CT HEAD WITHOUT CONTRAST CT CERVICAL SPINE WITHOUT CONTRAST CLINICAL INFORMATION: 63-year-old male status post fall COMPARISON: 04/11/2022 TECHNIQUE: CT of the head and cervical spine were performed without intravenous contrast. Multiplanar reformats were rendered and reviewed. This CT examination was performed using dose optimization techniques as appropriate, variously including the following: *Automated exposure control *Adjustment of mA and/or kV according to patient size (this includes techniques or standardized protocols for targeted exams where dose is matched to indication/reason for exam; i.e. extremities or head) *Use of iterative reconstruction technique DLP: 784.11 mGy-cm. FINDINGS: CT head: No intracranial hemorrhage, large infarction, or mass lesion is seen. No extra-axial collection is appreciated. The ventricles are normal in size and configuration without evidence of hydrocephalus. The visualized paranasal sinuses are clear. There is partial opacification of mastoids air cells. CT cervical spine: Examination is suboptimal due to motion The cervical alignment is normal. There is straightening of cervical lordosis most likely due to muscle spasm The craniocervical junction is normal. The vertebral body heights are maintained. No cervical spine fracture is seen. There are mild multilevel degenerative changes with narrowing cough C4-C5, C5-C6 and C6-C7 intervertebral disc spaces with marginal spurring The paraspinal soft tissues are within normal limits. The partially imaged lung apices are clear. CT/CT cervical spine wo IV con IMPRESSION: CT HEAD: No acute intracranial finding. CT CERVICAL SPINE: No cervical spine fracture or traumatic malalignment identified. Straightening of cervical lordosis due to muscle spasm. Multilevel degenerative changes.
--- NOTE | ~2023-08-08 | CT_ITS ---
EXAMINATION: CT abdomen pelvis w IV con, CT angio chest PE protocol INDICATION: Male of 63 years with history of shortness of breath and abdominal pain COMPARISON: Most recent chest CT/A: 06/24/2022. Most recent abdominal/pelvis CT: 04/11/2022. TECHNIQUE: Prior to contrast administration, noncontrast localization images were obtained. Subsequently, multidetector volumetric imaging was performed from the thoracic inlet to below the pubis symphysis following the administration of 85 mL Omnipaque 350 intravenous contrast. No contrast reaction reported Sagittal, coronal, and MIP oblique sagittal reformatted images were obtained on the CT workstation, uploaded to PACS, and reviewed. This CT examination was performed using dose optimization techniques as appropriate, variously including the following: *Automated exposure control. *Adjustment of mA and/or kV according to patient size (this includes techniques or standardized protocols for targeted exams where dose is matched to indication/reason for exam, i.e., extremities or head). *Use of iterative reconstruction technique. Total exam dose-length product 498.29 mGy-cm FINDINGS: QUALITY OF STUDY/CONTRAST BOLUS: Satisfactory. PULMONARY ARTERIES: There are no filling defects in the main, lobar, or segmental pulmonary arteries to suggest pulmonary embolism. The central pulmonary arteries are normal. THORACIC AORTA:There is a normal left-sided three-vessel aortic arch. No dissection. The aorta is normal in caliber. LUNG: Low lung volume bilaterally with mild vascular congestion but no evidence of malignancy is consolidation or pleural effusion. MEDIASTINUM: No evidence of septal bowing or right heart strain. The cardiomediastinal structures are unremarkable. There is no pericardial effusion. No pathologically enlarged mediastinal lymph nodes. CHEST WALL/AXILLA: There is bilateral gynecomastia LIVER, GALLBLADDER, AND BILIARY TREE: There is low-attenuation liver was cirrhotic architecture. There is no obvious pulmonary hypertension. There is caudate lobe hypertrophy. No evidence of ascites. There is mild cholelithiasis but no evidence of cholecystitis no evidence of choledocholithiasis. PANCREAS: Normal size. No definite mass, surrounding fluid, or inflammatory changes. There is mild haziness of mesentery adjacent to the pancreatic body possibly due to sclerosing mesenteritis more than pancreatitis. Correlate clinically SPLEEN: Normal size. No focal lesion. No perisplenic ascites. ADRENAL GLANDS: Normal in size; no mass. KIDNEYS AND URETERS: The kidneys are normal in size, shape, and attenuation. No hydronephrosis or hydroureter. No renal calculi. GASTROINTESTINAL TRACT: No evidence of free fluid or free air within the abdomen. The stomach is non-distended there is linear metallic object in the body of stomach questionably foreign body versus metallic clip, correlate clinically. Non-distended loops of small bowel are identified. No evidence of colonic wall thickening or surrounding inflammatory changes. The appendix is unremarkable; no fat stranding is noted in the expected location of the appendix. ABDOMINAL WALL: Subcutaneous varicosity present. LYMPHOVASCULAR STRUCTURES: There are scattered mesenteric lymph nodes such as elongated lymph node seen in the retroperitoneum adjacent to the right kidney, measured 1.4 cm. There is no aortic dissection or dilatation. BLADDER: Urinary bladder is nondistended with Watkins catheter present PELVIC VISCERA: Unremarkable. OSSEOUS STRUCTURES: No acute or suspicious osseous abnormality. Mild multilevel degenerative changes of the visualized spine. CT/CT abdomen pelvis w IV con IMPRESSION: 1. No evidence of pulmonary embolism. No evidence of aortic dissection. 2. Low lung volume bilaterally with mild vascular congestion. 3. Cirrhotic liver with caudate lobe hypertrophy. 4. Cholelithiasis without evidence of cholecystitis. 5. Mild haziness of mesentery adjacent to the pancreatic body possibly due to sclerosing mesenteritis more than pancreatitis, correlate clinically. 6. Scattered mesenteric lymph nodes. VTE: Negative.
--- NOTE | ~2023-08-08 | CT_ITS ---
EXAMINATION: CT HEAD WITHOUT CONTRAST CT CERVICAL SPINE WITHOUT CONTRAST CLINICAL INFORMATION: 63-year-old male status post fall COMPARISON: 04/11/2022 TECHNIQUE: CT of the head and cervical spine were performed without intravenous contrast. Multiplanar reformats were rendered and reviewed. This CT examination was performed using dose optimization techniques as appropriate, variously including the following: *Automated exposure control *Adjustment of mA and/or kV according to patient size (this includes techniques or standardized protocols for targeted exams where dose is matched to indication/reason for exam; i.e. extremities or head) *Use of iterative reconstruction technique DLP: 784.11 mGy-cm. FINDINGS: CT head: No intracranial hemorrhage, large infarction, or mass lesion is seen. No extra-axial collection is appreciated. The ventricles are normal in size and configuration without evidence of hydrocephalus. The visualized paranasal sinuses are clear. There is partial opacification of mastoids air cells. CT cervical spine: Examination is suboptimal due to motion The cervical alignment is normal. There is straightening of cervical lordosis most likely due to muscle spasm The craniocervical junction is normal. The vertebral body heights are maintained. No cervical spine fracture is seen. There are mild multilevel degenerative changes with narrowing cough C4-C5, C5-C6 and C6-C7 intervertebral disc spaces with marginal spurring The paraspinal soft tissues are within normal limits. The partially imaged lung apices are clear. CT/CT head/brain wo IV con IMPRESSION: CT HEAD: No acute intracranial finding. CT CERVICAL SPINE: No cervical spine fracture or traumatic malalignment identified. Straightening of cervical lordosis due to muscle spasm. Multilevel degenerative changes.
--- NOTE | 2023-08-08 11:25 | PC.NURSE ---
Pt arousal with light touch and and name, timber packer utilized who stated she is very familiar with patient and his speech is baseline from previous stroke. Pt reported he got mad yesterday d/t this twitching that started a month ago and he reported snorting 8 bags of heroin which helped with some of his twitching. EMS reported that family called for AMS and new incon, pt reported his family does not know he used heroin yesterday. Pt also stating he fell this morning, reporting he hit his head denies LOC.
--- NOTE | 2023-08-08 11:46 | ECG_ITS ---
Test Reason : Altered Mental Status Blood Pressure : / mmHG Vent. Rate : 062 BPM Atrial Rate : 062 BPM P-R Int : 188 ms QRS Dur : 084 ms QT Int : 428 ms P-R-T Axes : -23 -15 010 degrees QTc Int : 434 ms Artifact in tracing Normal sinus rhythm Normal ECG When compared with ECG of 22-NOV-2022 17:43, No significant change was found Referred By: Yuliet Levine Electronically Signed By:LOC AMADOR
--- NOTE | 2023-08-08 11:54 | ED_ITS ---
HPI - Altered Mental Status General Chief Complaint: Altered Mental Status Stated Complaint: ams Time Seen by Provider: 08/08/23 11:05 History of Present Illness HPI narrative: Patient is a 63-year-old male with a history of diabetes history of alcohol abuse history of narcotic abuse baseline is on methadone history of liver cirrhosis baseline has ascites history of COPD respiratory failure baseline on oxygen unsure the exact amount history of being on CPAP patient presented today after using additional heroin was found to be very lethargic by the visiting nurse. Patient normally gets a visiting nurse on a daily basis to get his methadone. Patient's family states he drinks alcohol on a regular basis. Today patient is more lethargic more weak not quite right unable to ambulate after using 6 bags of heroin on top of the methadone. Patient states his normal method of use is snorting. Related Data Home Medications Medication Instructions Recorded Confirmed thiamine HCl (vitamin B1) 100 mg 100 mg PO DAILY 06/18/21 04/22/23 tablet blood sugar diagnostic (FreeStyle #10 ea 12/12/21 12/11/22 Lite Strips) blood-glucose meter (FreeStyle #1 ea 12/12/21 12/11/22 Benton Lite kit) furosemide 20 mg tablet 20 mg PO DAILY 12/12/21 04/22/23 lancets 33 gauge (TRUEplus Lancets) #100 ea 12/12/21 12/11/22 prazosin 1 mg capsule 1 mg PO BEDTIME PRN nightmares 12/12/21 04/22/23 methadone 10 mg/mL oral concentrate 40 mg PO DAILY 02/20/22 04/22/23 empagliflozin 10 mg tablet 1 tab PO DAILY 04/11/22 04/22/23 (Jardiance) paroxetine HCl 20 mg tablet 1 tab PO BEDTIME 04/11/22 04/22/23 spironolactone 25 mg tablet 1 tab PO BEDTIME 04/11/22 04/22/23 Oxygen Home Use 04/22/22 12/11/22 omeprazole 40 mg capsule,delayed 40 mg PO DAILY@0630 11/23/22 04/22/23 release hydralazine 25 mg tablet 25 mg PO BIDWM 11/25/22 04/22/23 CPAP (CPAP Machine/Device) 04/25/23 Previous Rx's Medication Instructions Recorded ipratropium 20 mcg-albuterol 100 1 puff inhalation QID 30 days #4 08/17/21 mcg/actuation mist for inhalation grams (Combivent Respimat) sennosides 8.6 mg tablet (Natural 17.2 mg (2 x 8.6 mg) PO BEDTIME 08/14/22 Senna Laxative) constipation #180 tabs Allergies Allergy/AdvReac Type Severity Reaction Status Date / Time aspirin [ASPIRIN] Allergy Unknown RASH Verified 08/08/23 10:52 ibuprofen Allergy Unknown nausea and Verified 08/08/23 10:52 vomiting Review of Systems 2 Review of Systems: Unable to obtain full review of systems secondary to patient's condition [facility] Past Medical History Attestation statement: The following information was validated with the patient. Medical History Chronic hypoxic respiratory failure Restrictive lung disease Obesity hypoventilation syndrome DARRIAN treated with BiPAP Morbid obesity Chronic respiratory failure Acute respiratory failure with hypoxia History of opiate therapy Morbid obesity due to excess calories CKD (chronic kidney disease) stage 3, GFR 30-59 ml/min Liver cirrhosis DARRIAN (obstructive sleep apnea) Chronic kidney disease Congestive heart failure Diabetes Surgical History No pertinent past surgical history Family History Family History Mother Cancer Diabetes Social History Social History Household Members: Family Housing: House Do you presently have visiting nurse or other home services: No Alcohol intake: current Alcohol intake frequency: 3 or more drinks per day Alcohol type: beer Comment: restraints Patient Tobacco Use Status: Never used Tobacco e-Cigarette/Vaping Use: Never Used Use of substances other than those prescribed or required for medical reasons: Yes Substance Use Type: Heroin Substance Use Frequency: Occasionally Substance Use Frequency Other:: 1 Last Used Substance: Days (ago) Advance Directives: No Advance Directives Information Provided: No service: No Current occupational status: disabled Physical Exam ED Vital Signs: Vital Signs - 24 hr 08/08/23 10:47 08/08/23 14:04 08/08/23 14:06 Temperature 98.8 F 99 F Pulse Rate 67 63 Respiratory Rate 14 19 16 Blood Pressure 138/82 143/63 H Pulse Oximetry 90 L 99 Oxygen Delivery Method Nasal Cannula BiPAP Fraction of Inspired Oxygen 50 BMI result Body Mass Index 39.1 Appearance: Alert. Lethargic oriented to self. No acute distress. Eyes: Pupils equal, round and reactive to light. ENT: Pharynx normal. Neck: Normal inspection. Neck supple. No lymph nodes noted. No crepitus CVS: Normal heart rate and rhythm. Pulses normal. Normal S1 and S2 Respiratory: Diminished breath sounds bilaterally Abdomen: Soft and nontender. No rigidity. No distention. good BS x4 Skin: Skin warm and dry. Normal skin color. Normal skin turgor. Extremities: 2+ pitting edema bilateral lower extremity Neuro: Extremely lethargic arousable with painful stimuli. moving all extremities to simple commands afterwards. Has jerking motions that comes every 10 seconds or so. Medications Administered Discontinued Medications Generic Name Dose Route Start Last Admin Trade Name Freq PRN Reason Stop Dose Admin Iohexol 100 ml 08/08/23 14:39 08/08/23 14:40 Iohexol 350 Mg/Ml 100 Ml Infus..Btl IV 08/08/23 14:40 85 ml ONCE ONE Administration Medical Decision Making Medical Decision Making MDM Narrative: Patient's old record was reviewed. History of cardiac arrest. Multitude of issues including alcohol abuse, liver cirrhosis, polysubstance abuse on methadone. Currently using heroin. Found very lethargic. Glucose and blood gas ordered. Patient to get additional labs CT scan. 13:00 Patient's sugar was 100. There has no evidence for hypoglycemia. Alcohol was 66. This is approximately baseline for patient. An ABG was done. The ABG showed a pH 7.28 with a pCO2 62. PaO2 86 on 2 L. This shows acute CO2 retention respiratory acidosis. Will start patient on BiPAP. CT scan of the head was done. There was no evidence for acute intracranial bleeding by my interpretation. Patient's troponin is elevated at about 100. My interpretation of patient's EKG showed a sinus rhythm heart rate is 70 MS QRS QTC within normal limits is no changes when compared to previous however the elevated troponin is concerning. We will get serial troponin to trend for possible ischemia. Will also contact Cardiology. Patient's lactate is 2.1 question secondary related to liver failure. Patient's potassium is 5.7. In the setting of normal BUN and creatinine. Will repeat the electrolytes. CT scan of the C- spine CTA of the chest and CT of the abdomen pelvis is still pending. A repeat ABG was done after 2 hours of being on BiPAP. Patient's ABG showed a pH of 7.3 with a pCO2 of 62 PaO2 in the same range. Differential Diagnosis Differential Diagnoses: The differential diagnosis associated with the presentation includes CO2 retention, narcotic overdose, liver cirrhosis, EtOH, pneumonia, COPD, Admission/Observation Consideration of admission/observation: Escalation of care including admission/observation considered Consult Healthcare Provider Management of the patient was discussed with: River Guide (Yarding Engineer) Lab Data MDM Lab Attestation statement: I reviewed the patient's lab results. 08/08/23 12:04 08/08/23 13:38 Labs: Lab Results 08/08/23 08/08/23 08/08/23 Range/Units 12:04 12:25 12:55 WBC 11.0 H (4.8-10.8) X10*3/uL RBC 4.71 (4.60-5.80) X10*6/uL Hgb 13.0 L (14.0-18.0) g/dl Hct 43.0 (42.0-52.0) % MCV 91.3 (80.0-98.0) fL MCH 27.6 (27.0-33.0) pg MCHC 30.2 L (31.0-36.0) g/dl RDW 16.4 H (11.0-16.0) % Plt Count 195 (160-400) X10*3/uL MPV 8.7 L (9.4-12.4) fL Immature Gran % (Auto) 0.4 (0.0-0.4) % Neut % (Auto) 82.5 H (45-73) % Lymph % (Auto) 9.7 L (20-40) % Mclennan % (Auto) 6.9 (2-11) % Eos % (Auto) 0.0 (0-4) % Baso % (Auto) 0.5 (0-2) % Lymph # (Auto) 1.1 L (1.2-4.9) X10*3/uL Mclennan # (Auto) 0.8 (0.1-1.2) X10*3/uL Eos # (Auto) 0.0 (0.0-0.4) X10*3/uL Baso # (Auto) 0.1 (0.0-0.2) X10*3/uL Abs Immat Gran (auto) 0.04 H (0.00-0.03) X10*3/uL Absolute Neuts (auto) 9.1 H (2.0-8.3) x10*3/uL Absolute Nucleated RBC 0.000 (0.0-0.012) X10*3/uL Nucleated RBC % (auto) 0.0 (0.0-0.2) /100WBC O2 Saturation 94.0 % ABG pH at Pt Temp 7.28 L (7.35-7.45) ABG pCO2 at Pt Temp 62 H* (32-45) mmHg ABG pO2 at Pt Temp 86 (83-108) mmHg ABG HCO3 30 H (22-26) mmol/L ABG Base Excess (Actual) 1.9 mmol/L Sodium 134 L (135-145) mmol/L Potassium 5.7 H (3.3-5.1) mmol/L Chloride 102 (96-108) mmol/L Carbon Dioxide 24 (22-29) mmol/L Anion Gap 14 (12-20) BUN 28 H (9-16) mg/dL Creatinine 1.40 (0.5-1.4) mg/dL Estim Creat Clear Calc 64.4 Estimated GFR 52 POC Glucose 107 (60-115) mg/dL Random Glucose 104 (60-115) mg/dL Lactic Acid 2.1 H* (0.5-2.0) mmol/L Lactic Acid F/U @ 2Hr (0.5-2.0) mmol/L Calcium 9.0 D (8.4-10.2) mg/dL Magnesium 2.4 (1.6-2.6) mg/dL Total Bilirubin 0.4 (0.0-1.0) mg/dL Direct Bilirubin 0.1 (0.0-0.5) mg/dL AST 42 H (5-37) U/L ALT 24 (0-40) U/L Alkaline Phosphatase 188 H (39-117) U/L Ammonia 44 (13-55) umol/L Troponin I High Sens 110.3 H* D (<3.5-35.0) ng/L B-Natriuretic Peptide 1219 H (<100) pg/mL Total Protein 8.5 H (6.5-8.0) g/dL Albumin 3.7 (3.5-5.0) g/dL Lipase 22 (8-78) U/L Urine Opiates Screen (Not Detect) Urine Fentanyl Screen (Not Detect) Ur Barbiturates Screen (Not Detect) Ur Phencyclidine Scrn (Not Detect) Ur Amphetamines Screen (Not Detect) U Benzodiazepines Scrn (Not Detect) Urine Cocaine Screen (Not Detect) U Marijuana (THC) Screen (Not Detect) Ethyl Alcohol 66 mg/dL Influenza Type A (PCR) (Negative) Influenza Type B (PCR) (Negative) RSV RNA Qual (PCR) (Negative) SARS-CoV-2 RNA (RT-PCR) (Negative) 08/08/23 08/08/23 08/08/23 Range/Units 13:38 14:28 15:05 WBC (4.8-10.8) X10*3/uL RBC (4.60-5.80) X10*6/uL Hgb (14.0-18.0) g/dl Hct (42.0-52.0) % MCV (80.0-98.0) fL MCH (27.0-33.0) pg MCHC (31.0-36.0) g/dl RDW (11.0-16.0) % Plt Count (160-400) X10*3/uL MPV (9.4-12.4) fL Immature Gran % (Auto) (0.0-0.4) % Neut % (Auto) (45-73) % Lymph % (Auto) (20-40) % Mclennan % (Auto) (2-11) % Eos % (Auto) (0-4) % Baso % (Auto) (0-2) % Lymph # (Auto) (1.2-4.9) X10*3/uL Mclennan # (Auto) (0.1-1.2) X10*3/uL Eos # (Auto) (0.0-0.4) X10*3/uL Baso # (Auto) (0.0-0.2) X10*3/uL Abs Immat Gran (auto) (0.00-0.03) X10*3/uL Absolute Neuts (auto) (2.0-8.3) x10*3/uL Absolute Nucleated RBC (0.0-0.012) X10*3/uL Nucleated RBC % (auto) (0.0-0.2) /100WBC O2 Saturation 94.0 % ABG pH at Pt Temp 7.30 L (7.35-7.45) ABG pCO2 at Pt Temp 62 H* (32-45) mmHg ABG pO2 at Pt Temp 82 L (83-108) mmHg ABG HCO3 31 H (22-26) mmol/L ABG Base Excess (Actual) 3.3 mmol/L Sodium 139 (135-145) mmol/L Potassium 5.7 H (3.3-5.1) mmol/L Chloride 99 (96-108) mmol/L Carbon Dioxide 30 H (22-29) mmol/L Anion Gap 16 (12-20) BUN 29 H (9-16) mg/dL Creatinine 1.33 (0.5-1.4) mg/dL Estim Creat Clear Calc 67.8 Estimated GFR 55 POC Glucose (60-115) mg/dL Random Glucose 92 (60-115) mg/dL Lactic Acid (0.5-2.0) mmol/L Lactic Acid F/U @ 2Hr 1.3 (0.5-2.0) mmol/L Calcium 9.1 (8.4-10.2) mg/dL Magnesium (1.6-2.6) mg/dL Total Bilirubin (0.0-1.0) mg/dL Direct Bilirubin (0.0-0.5) mg/dL AST (5-37) U/L ALT (0-40) U/L Alkaline Phosphatase (39-117) U/L Ammonia (13-55) umol/L Troponin I High Sens 92.8 H (<3.5-35.0) ng/L B-Natriuretic Peptide (<100) pg/mL Total Protein (6.5-8.0) g/dL Albumin (3.5-5.0) g/dL Lipase (8-78) U/L Urine Opiates Screen POSITIVE H (Not Detect) Urine Fentanyl Screen POSITIVE H (Not Detect) Ur Barbiturates Screen Not Detected (Not Detect) Ur Phencyclidine Scrn Not Detected (Not Detect) Ur Amphetamines Screen Not Detected (Not Detect) U Benzodiazepines Scrn Not Detected (Not Detect) Urine Cocaine Screen Not Detected (Not Detect) U Marijuana (THC) Screen Not Detected (Not Detect) Ethyl Alcohol mg/dL Influenza Type A (PCR) NEGATIVE (Negative) Influenza Type B (PCR) NEGATIVE (Negative) RSV RNA Qual (PCR) NEGATIVE (Negative) SARS-CoV-2 RNA (RT-PCR) NEGATIVE (Negative) Independent Interpretation I performed an independent interpretation of an: EKG (Sinus heart rate is 60 MS QRS QTC within normal limits is no acute ST segment elevation noted.) and CT Scan (I reviewed patient's CT scan of the head which was grossly negative. I reviewed the CT scan of the C-spine showed no gross fracture no gross malalignment noted. CT scan of the abdomen pelvis showed no gross obstruction) Radiology Impression Discussion of test interpretation with radiology: I have reviewed the radiologist's reading. Radiologist Impression: I reviewed radiology's reading of the CT scan head C-spine chest abdomen pelvis Independent Historian Clinical information obtained from an independent historian. History obtained from or confirmed by: EMS Additional history obtained through patient's daughter External Record Review External record reviewed: Inpatient record Critical Care Time Critical Care Time Critical Care Time: Yes Total Critical Care Time: 90 Attestation: I have personally provided 90 minutes of critical care time exclusive of time spent on separately billable procedures. ?Time includes review of lab data, radiology results, discussion with consultants, and monitoring for potential decompensation. ?Interventions were performed as documented above Discharge Plan Discharge Clinical Impression: Respiratory failure Patient Disposition: Admitted As Inpatient Prescriptions: No Action sennosides [Natural Senna Laxative] 8.6 mg tablet 17.2 mg PO BEDTIME Qty: 180 2RF spironolactone 25 mg tablet 1 tab PO BEDTIME paroxetine HCl 20 mg tablet 1 tab PO BEDTIME Jardiance 10 mg tablet 1 tab PO DAILY prazosin 1 mg capsule 1 mg PO BEDTIME PRN (Reason: nightmares) furosemide 20 mg tablet 20 mg PO DAILY omeprazole 40 mg capsule,delayed release(DR/EC) 40 mg PO DAILY@0630 hydralazine 25 mg tablet 25 mg PO BIDWM thiamine HCl (vitamin B1) 100 mg tablet 100 mg PO DAILY (DME) Oxygen Home Use Kit See Rx Instructions .Route Rx Instructions: As directed Combivent Respimat 20-100 mcg/actuation mist 1 puff inhalation QID 30 Days Qty: 4 11RF Rx Instructions: space evenly during waking hours (DME) blood-glucose meter [FreeStyle Benton Lite] Kit See Rx Instructions Not Applicable BID Qty: 1 Rx Instructions: As directed (DME) FreeStyle Lite Strips Strip See Rx Instructions Not Applicable BID Qty: 10 Rx Instructions: As directed (DME) lancets [TRUEplus Lancets] 33 gauge misc See Rx Instructions Not Applicable BID Qty: 100 Rx Instructions: As directed methadone 10 mg/mL concentrate 40 mg PO DAILY Rx Instructions: Per PT's Daughter - fills at [facility] (DME) CPAP Machine/Device Device See Rx Instructions .ROUTE Rx Instructions: As directed
[2023-08-08 12:19] LABS: MANUAL DIFF FLAG NO
[2023-08-08 12:24] LABS: Basophils Absolute Auto 0.1 X10*3/uL (0.0-0.2); Basophils Percent Auto 0.5 % (0-2); Imm Gran Abs Auto 0.04 X10*3/uL (0.00-0.03); Imm Gran Pct Auto 0.4 % (0.0-0.4); Lymphocytes Absolute Auto 1.1 X10*3/uL (1.2-4.9); Lymphocytes Percent Auto 9.7 % (20-40); Mean Corpuscular HGB Conc 30.2 g/dl (31.0-36.0); Mean Corpuscular Hemoglobin 27.6 pg (27.0-33.0); Mean Corpuscular Volume 91.3 fL (80.0-98.0); Mean Platelet Volume 8.7 fL (9.4-12.4); Monocytes Absolute Auto 0.8 X10*3/uL (0.1-1.2); Monocytes Percent Auto 6.9 % (2-11); Neutrophils Absolute Auto 9.1 x10*3/uL (2.0-8.3); Neutrophils Percent Auto 82.5 % (45-73); Platelet Count 195 X10*3/uL (160-400); Red Blood Count 4.71 X10*6/uL (4.60-5.80); Red Cell Distribution Width 16.4 % (11.0-16.0)
[2023-08-08 12:30] LABS: Ammonia 44 umol/L (13-55)
[2023-08-08 12:33] LABS: Glucose, Whole Blood 107 mg/dL (60-115)
[2023-08-08 12:35] LABS: Ethanol 66 mg/dL
[2023-08-08 12:40] LABS: Lactic Acid 2.1 mmol/L (0.5-2.0)
[2023-08-08 12:42] LABS: Alanine Aminotransferase 24 U/L (0-40); Albumin Level 3.7 g/dL (3.5-5.0); Alkaline Phosphatase 188 U/L (39-117); Anion Gap 14 (12-20); Aspartate Amino Transferase 42 U/L (5-37); Bilirubin Direct 0.1 mg/dL (0.0-0.5); Bilirubin Total 0.4 mg/dL (0.0-1.0); Blood Urea Nitrogen 28 mg/dL (9-16); Carbon Dioxide 24 mmol/L (22-29); Chloride 102 mmol/L (96-108); Creatinine Clr Calc Pharmacy 64.4; Estimated Glomerular Filt Rate 52; Glucose Random 104 mg/dL (60-115); Lipase 22 U/L (8-78); Magnesium 2.4 mg/dL (1.6-2.6); Potassium 5.7 mmol/L (3.3-5.1); Sodium 134 mmol/L (135-145); Total Protein 8.5 g/dL (6.5-8.0)
[2023-08-08 12:44] LABS: B Type Natriuretic Peptide 1219 pg/mL (<100)
[2023-08-08 12:49] LABS: Troponin-I High Sensitivity 110.3 ng/L (<3.5-35.0)
[2023-08-08 13:03] LABS: ABG Base Excess 1.9 mmol/L; ABG HCO3 30 mmol/L (22-26); ABG pCO2 62 mmHg (32-45); ABG pH 7.28 (7.35-7.45); ABG pO2 86 mmHg (83-108)
[2023-08-08 14:02] LABS: Amphetamine Screen Urine Not Detected (Not Detect); Barbiturates, Urine Not Detected (Not Detect); Benzodiazepines Screen Urine Not Detected (Not Detect); Cannabinoid Screen Urine Not Detected (Not Detect); Cocaine Screen Urine Not Detected (Not Detect); Fentanyl, urine POSITIVE (Not Detect); Opiate Screen Urine POSITIVE (Not Detect); Phencyclidine Screen Urine Not Detected (Not Detect)
--- NOTE | 2023-08-08 14:08 | PC.NURSE ---
Pt move to ED4, placed on monitors post CT scans, placed on BiPAP.
[2023-08-08 14:11] LABS: Anion Gap 16 (12-20); Blood Urea Nitrogen 29 mg/dL (9-16); Calcium 9.1 mg/dL (8.4-10.2); Carbon Dioxide 30 mmol/L (22-29); Chloride 99 mmol/L (96-108); Creatinine Clr Calc Pharmacy 67.8; Estimated Glomerular Filt Rate 55; Glucose Random 92 mg/dL (60-115); Potassium 5.7 mmol/L (3.3-5.1); Sodium 139 mmol/L (135-145)
[2023-08-08 14:18] LABS: Reflex Lactate? Lactic Acid Added
[2023-08-08 14:32] LABS: Influenza A PCR NEGATIVE (Negative); Influenza B PCR NEGATIVE (Negative); Resp Syncy Virus RNA Qual PCR NEGATIVE (Negative); SARS COV2 PCR INHOUSE NEGATIVE (Negative)
[2023-08-08] MEDS: iohexoL 350 MG/ML 100 ML INFUS..BTL IV (14:40)
[2023-08-08 14:44] LABS: ~Lactic Acid-LAB USE ONLY 1.3 mmol/L (0.5-2.0)
[2023-08-08 14:56] LABS: Troponin-I High Sensitivity 92.8 ng/L (<3.5-35.0)
[2023-08-08 15:13] LABS: ABG Base Excess 3.3 mmol/L; ABG HCO3 31 mmol/L (22-26); ABG pCO2 62 mmHg (32-45); ABG pO2 82 mmHg (83-108)
[2023-08-08 15:33] LABS: ABG Refer to POC result
[2023-08-08] MEDS: Heparin Sodium,Porcine 5,000 UNIT/ML VIAL 5000 UNIT SUBCUT (15:50)
[2023-08-08] MEDS: Furosemide 40 MG/4 ML VIAL IVPUSH (15:50)
--- NOTE | 2023-08-08 15:53 | P.HPCC_ITS ---
History of Present Illness Date of Service: 08/08/23 Chief Complaint: Alteration of mental status 63-year-old gentleman with underlying history of obesity, diabetes mellitus, hypertension, polysubstance abuse including alcohol and heroin, liver cirrhosis in admitted with acute on chronic hypoxic and hypercapnic respiratory failure requiring BiPAP support after ingestion earlier on the day of admission further complicated by exacerbation of underlying chronic congestive heart failure. Review of Systems 2 Review of Systems: Yes Unobtainable due to mental status Neurologic: Reports confusion Psychiatric: Psychiatric: Reports confusion [facility] Past Medical History Medical History (Updated 08/08/23 @ 16:01 by Xavier Delarosa MD) Morbid obesity Chronic hypoxic respiratory failure Restrictive lung disease Obesity hypoventilation syndrome DARRIAN treated with BiPAP Chronic respiratory failure Acute respiratory failure with hypoxia History of opiate therapy Morbid obesity due to excess calories CKD (chronic kidney disease) stage 3, GFR 30-59 ml/min Liver cirrhosis DARRIAN (obstructive sleep apnea) Chronic kidney disease Congestive heart failure Diabetes Family History Family History Mother Cancer Diabetes Surgical History Surgical History No pertinent past surgical history Social History Social History Household Members: Family Housing: House Do you presently have visiting nurse or other home services: No Alcohol intake: current Alcohol intake frequency: 3 or more drinks per day Alcohol type: beer Comment: restraints Patient Tobacco Use Status: Never used Tobacco e-Cigarette/Vaping Use: Never Used Substance Use Type: Heroin service: No Current occupational status: disabled Meds Allergies Allergy/AdvReac Type Severity Reaction Status Date / Time aspirin [ASPIRIN] Allergy Unknown RASH Verified 08/08/23 10:52 ibuprofen Allergy Unknown nausea and Verified 08/08/23 10:52 vomiting Active Medications: Current Medications Heparin Sodium (Porcine) (Heparin Sodium,Porcine 5,000 Unit/Ml Vial) 5,000 unit SUBCUT Q8H THAI Last Admin: 08/08/23 15:50 Dose: 5,000 unit Insulin Human Lispro (Insulin Lispro 100 Unit/Ml 3 Ml Vial) 0 unit SUBCUT QIDACHS [facility]; Protocol Home Medications Medication Instructions Recorded Confirmed Last Taken Type thiamine HCl (vitamin B1) 100 mg 100 mg PO DAILY 06/18/21 04/22/23 11/22/22 History tablet blood sugar diagnostic (FreeStyle #10 ea 12/12/21 12/11/22 11/22/22 History Lite Strips) blood-glucose meter (FreeStyle #1 ea 12/12/21 12/11/22 11/22/22 History [place] Lite kit) furosemide 20 mg tablet 20 mg PO DAILY 12/12/21 04/22/23 11/22/22 History lancets 33 gauge (TRUEplus Lancets) #100 ea 12/12/21 12/11/22 11/22/22 History prazosin 1 mg capsule 1 mg PO BEDTIME PRN nightmares 12/12/21 04/22/23 Unknown History methadone 10 mg/mL oral concentrate 40 mg PO DAILY 02/20/22 04/22/23 Unknown History empagliflozin 10 mg tablet 1 tab PO DAILY 04/11/22 04/22/23 11/22/22 History (Jardiance) paroxetine HCl 20 mg tablet 1 tab PO BEDTIME 04/11/22 04/22/23 11/21/22 History spironolactone 25 mg tablet 1 tab PO BEDTIME 04/11/22 04/22/23 11/21/22 History Oxygen Home Use 04/22/22 12/11/22 11/22/22 History omeprazole 40 mg capsule,delayed 40 mg PO DAILY@0630 11/23/22 04/22/23 11/22/22 History release hydralazine 25 mg tablet 25 mg PO BIDWM 11/25/22 04/22/23 Unknown History CPAP (CPAP Machine/Device) 04/25/23 Unknown History Physical Exam 2 Vital Signs: Vital Signs: Last Vital Signs Temp 99 F 08/08/23 14:06 Pulse 63 08/08/23 14:06 Resp 16 08/08/23 14:06 BP 143/63 H 08/08/23 14:06 Pulse Ox 99 08/08/23 14:06 O2 Del Method BiPAP 08/08/23 14:06 FiO2 50 08/08/23 14:06 Oxygen Flow Rate 3 08/08/23 10:47 BMI result Body Mass Index 39.1 Const: General: no acute distress, awake and confusion Nutritional Appearance: obese Orientation/consciousness: confusion Eyes: Sclerae: sclerae normal EOM: EOMs intact bilaterally Neck: Neck: Yes no lymphadenopathy, Yes trachea midline and Yes supple Resp: Effort & Inspection: normal respiratory effort and no respiratory distress Auscultation: clear to auscultation bilaterally Cardio: Rate: regular rate Rhythm: regular rhythm Heart sounds: no gallops, no murmurs and no rubs GI: Palpation (GI): Soft to palpation and Other GI palpation findings present ( Nontender) Auscultation: normal bowel sounds Neuro: General: confusion Extrem: General: No clubbing, No cyanosis and Yes edema (1+ bilateral) Results Labs 08/08/23 12:04 08/08/23 13:38 Labs: Laboratory Results - last 24 hr 08/08/23 08/08/23 08/08/23 12:04 12:25 12:55 MCV 91.3 MCH 27.6 MCHC 30.2 L RDW 16.4 H Plt Count 195 MPV 8.7 L Immature Gran % (Auto) 0.4 Neut % (Auto) 82.5 H Lymph % (Auto) 9.7 L Crenshaw % (Auto) 6.9 Eos % (Auto) 0.0 Baso % (Auto) 0.5 Lymph # (Auto) 1.1 L [place] # (Auto) 0.8 Eos # (Auto) 0.0 Baso # (Auto) 0.1 Abs Immat Gran (auto) 0.04 H Absolute Neuts (auto) 9.1 H Absolute Nucleated RBC 0.000 Nucleated RBC % (auto) 0.0 O2 Saturation 94.0 ABG pH at Pt Temp 7.28 L ABG pCO2 at Pt Temp 62 H* ABG pO2 at Pt Temp 86 ABG HCO3 30 H ABG Base Excess (Actual) 1.9 Anion Gap 14 Estim Creat Clear Calc 64.4 Estimated GFR 52 POC Glucose 107 Random Glucose 104 Lactic Acid 2.1 H* Lactic Acid F/U @ 2Hr Calcium 9.0 D Magnesium 2.4 Total Bilirubin 0.4 Direct Bilirubin 0.1 AST 42 H ALT 24 Alkaline Phosphatase 188 H Ammonia 44 Troponin I High Sens 110.3 H* D B-Natriuretic Peptide 1219 H Total Protein 8.5 H Albumin 3.7 Lipase 22 Urine Opiates Screen Urine Fentanyl Screen Ur Barbiturates Screen Ur Phencyclidine Scrn Ur Amphetamines Screen U Benzodiazepines Scrn Urine Cocaine Screen U Marijuana (THC) Screen Ethyl Alcohol 66 Influenza Type A (PCR) Influenza Type B (PCR) RSV RNA Qual (PCR) SARS-CoV-2 RNA (RT-PCR) 08/08/23 08/08/23 08/08/23 13:38 14:28 15:05 MCV MCH MCHC RDW Plt Count MPV Immature Gran % (Auto) Neut % (Auto) Lymph % (Auto) Crenshaw % (Auto) Eos % (Auto) Baso % (Auto) Lymph # (Auto) Crenshaw # (Auto) Eos # (Auto) Baso # (Auto) Abs Immat Gran (auto) Absolute Neuts (auto) Absolute Nucleated RBC Nucleated RBC % (auto) O2 Saturation 94.0 ABG pH at Pt Temp 7.30 L ABG pCO2 at Pt Temp 62 H* ABG pO2 at Pt Temp 82 L ABG HCO3 31 H ABG Base Excess (Actual) 3.3 Anion Gap 16 Estim Creat Clear Calc 67.8 Estimated GFR 55 POC Glucose Random Glucose 92 Lactic Acid Lactic Acid F/U @ 2Hr 1.3 Calcium 9.1 Magnesium Total Bilirubin Direct Bilirubin AST ALT Alkaline Phosphatase Ammonia Troponin I High Sens 92.8 H B-Natriuretic Peptide Total Protein Albumin Lipase Urine Opiates Screen POSITIVE H Urine Fentanyl Screen POSITIVE H Ur Barbiturates Screen Not Detected Ur Phencyclidine Scrn Not Detected Ur Amphetamines Screen Not Detected U Benzodiazepines Scrn Not Detected Urine Cocaine Screen Not Detected U Marijuana (THC) Screen Not Detected Ethyl Alcohol Influenza Type A (PCR) NEGATIVE Influenza Type B (PCR) NEGATIVE RSV RNA Qual (PCR) NEGATIVE SARS-CoV-2 RNA (RT-PCR) NEGATIVE Imaging Radiologist's Impressions: Impressions Cervical Spine CT 08/08/23 12:33 IMPRESSION: CT HEAD: No acute intracranial finding. CT CERVICAL SPINE: No cervical spine fracture or traumatic malalignment identified. Straightening of cervical lordosis due to muscle spasm. Multilevel degenerative changes. Head CT 08/08/23 12:33 IMPRESSION: CT HEAD: No acute intracranial finding. CT CERVICAL SPINE: No cervical spine fracture or traumatic malalignment identified. Straightening of cervical lordosis due to muscle spasm. Multilevel degenerative changes. Chest X-Ray 08/08/23 12:42 IMPRESSION: Cardiomegaly and vascular redistribution Abdomen/Pelvis CT 08/08/23 14:30 IMPRESSION: 1. No evidence of pulmonary embolism. No evidence of aortic dissection. 2. Low lung volume bilaterally with mild vascular congestion. 3. Cirrhotic liver with caudate lobe hypertrophy. 4. Cholelithiasis without evidence of cholecystitis. 5. Mild haziness of mesentery adjacent to the pancreatic body possibly due to sclerosing mesenteritis more than pancreatitis, correlate clinically. 6. Scattered mesenteric lymph nodes. VTE: Negative. Chest CTA 08/08/23 14:30 IMPRESSION: 1. No evidence of pulmonary embolism. No evidence of aortic dissection. 2. Low lung volume bilaterally with mild vascular congestion. 3. Cirrhotic liver with caudate lobe hypertrophy. 4. Cholelithiasis without evidence of cholecystitis. 5. Mild haziness of mesentery adjacent to the pancreatic body possibly due to sclerosing mesenteritis more than pancreatitis, correlate clinically. 6. Scattered mesenteric lymph nodes. VTE: Negative. Assessment and Plan (1) Respiratory failure: Status: Acute (2) Congestive heart failure: Qualifiers: Heart failure type: systolic Heart failure chronicity: chronic Qualified Code(s): I50.22 - Chronic systolic (congestive) heart failure Status: Acute (3) Liver cirrhosis: Status: Acute (4) Polysubstance abuse: Status: Acute (5) DARRIAN (obstructive sleep apnea): Status: Acute (6) Morbid obesity: Status: Acute Plan Assessment: 63-year-old gentleman with underlying alcoholic liver cirrhosis polysubstance abuse, COPD, diabetes mellitus admitted with acute on chronic hypoxic and hypercapnic respiratory failure now requiring BiPAP support Plan: Neuro: Metabolic encephalopathy secondary to CO2 narcosis, improving slowly with BiPAP. Cardiac: Acute on chronic diastolic congestive heart failure. Start IV diuresis. Pulmonary: Acute on chronic hypoxic and hypercapnic respiratory failure secondary to opioid abuse and exacerbation of underlying congestive heart failure now requiring BiPAP support, continue to titrate off as tolerated. Renal: No acute issues. Endo: No acute issues. Underlying diabetes mellitus, continue on sliding scale insulin protocol. GI: No acute issues. ID: No acute issues Heme/Onc: No acute issues. Psych: No acute issues. Miscellaneous: No acute issues. Prophylaxis: Heparin Diet: Diabetic Critical care time spent: 60 minutes
[2023-08-08 16:33] LABS: Glucose, Whole Blood 94 mg/dL (60-115)
--- NOTE | 2023-08-08 16:36 | PHA.MEDREC ---
Addendum entered by Viviana Chamorro RPh 08/08/23 16:55: Patient get methadone at [facility], dose will need to be verified by RN Original Note: Pharmacy Consult ? Medication Reconciliation Pharmacy has completed the medication reconciliation. Confirmed Medication with patient (through glue sprayer) with a list brought by patient, and fax from [facility] (medbox)
[2023-08-08 20:03] LABS: Glucose, Whole Blood 89 mg/dL (60-115)
[2023-08-08 20:10] LABS: Anion Gap 13 (12-20); Blood Urea Nitrogen 29 mg/dL (9-16); Calcium 9.5 mg/dL (8.4-10.2); Carbon Dioxide 34 mmol/L (22-29); Chloride 99 mmol/L (96-108); Creatinine Clr Calc Pharmacy 67.7; Estimated Glomerular Filt Rate 55; Glucose Random 81 mg/dL (60-115); Potassium 4.7 mmol/L (3.3-5.1); Sodium 141 mmol/L (135-145)
[2023-08-08] MEDS: PHENobarbitaL sodium 130 MG/ML IM ONCE 255 MG IM (21:12)
[2023-08-09] VITALS (21 sets, daily range): BP systolic 121–180; BP diastolic 42–86; PULSE 50–61; RESP 13–21; TEMP 36–36.6; O2SAT 91–99; BMI 38.5
[2023-08-09] MEDS: Heparin Sodium,Porcine 5,000 UNIT/ML VIAL 5000 UNIT SUBCUT ×3 (00:25→16:26)
[2023-08-09] MEDS: PHENobarbitaL sodium 130 MG/ML VIAL IM Q3Hx2 191 MG IM ×2 (00:25→04:01)
[2023-08-09 04:51] LABS: VBG Base Excess 10.2 mmol/L; VBG HCO3 37 mmol/L (22-26); VBG pCO2 61 mmHg; VBG pH 7.39 (7.32-7.43); VBG pO2 77 mmHg
[2023-08-09 04:52] LABS: MANUAL DIFF FLAG NO
[2023-08-09 04:52] LABS: Venous Blood Gas Refer to POC result
[2023-08-09 04:53] LABS: Basophils Absolute Auto 0.1 X10*3/uL (0.0-0.2); Basophils Percent Auto 0.6 % (0-2); Eosinophils Absolute Auto 0.2 X10*3/uL (0.0-0.4); Eosinophils Percent Auto 2.2 % (0-4); Hematocrit 40.8 % (42.0-52.0); Hemoglobin 12.5 g/dl (14.0-18.0); Imm Gran Abs Auto 0.02 X10*3/uL (0.00-0.03); Imm Gran Pct Auto 0.3 % (0.0-0.4); Lymphocytes Absolute Auto 1.2 X10*3/uL (1.2-4.9); Lymphocytes Percent Auto 14.8 % (20-40); Mean Corpuscular HGB Conc 30.6 g/dl (31.0-36.0); Mean Corpuscular Volume 91.5 fL (80.0-98.0); Mean Platelet Volume 9.4 fL (9.4-12.4); Monocytes Absolute Auto 0.8 X10*3/uL (0.1-1.2); Monocytes Percent Auto 10.2 % (2-11); Neutrophils Absolute Auto 5.6 x10*3/uL (2.0-8.3); Neutrophils Percent Auto 71.9 % (45-73); Platelet Count 162 X10*3/uL (160-400); Red Blood Count 4.46 X10*6/uL (4.60-5.80); Red Cell Distribution Width 16.4 % (11.0-16.0); White Blood Count 7.8 X10*3/uL (4.8-10.8)
[2023-08-09 05:12] LABS: Alanine Aminotransferase 20 U/L (0-40); Albumin Level 3.4 g/dL (3.5-5.0); Alkaline Phosphatase 156 U/L (39-117); Anion Gap 11 (12-20); Aspartate Amino Transferase 28 U/L (5-37); Bilirubin Total 0.7 mg/dL (0.0-1.0); Blood Urea Nitrogen 28 mg/dL (9-16); Calcium 9.2 mg/dL (8.4-10.2); Carbon Dioxide 33 mmol/L (22-29); Chloride 101 mmol/L (96-108); Creatinine Clr Calc Pharmacy 77.1; Estimated Glomerular Filt Rate > 60; Glucose Random 81 mg/dL (60-115); Magnesium 2.2 mg/dL (1.6-2.6); Phosphorus 3.1 mg/dL (2.7-4.5); Potassium 4.3 mmol/L (3.3-5.1); Sodium 141 mmol/L (135-145); Total Protein 7.2 g/dL (6.5-8.0)
[2023-08-09 07:37] LABS: Glucose, Whole Blood 84 mg/dL (60-115)
[2023-08-09] MEDS: PHENobarbitaL 15 MG TABLET 45 MG PO ×2 (08:01→21:36)
[2023-08-09] MEDS: cefTRIAXone sodium 1 GM in 0.9 % Sodium Chloride 50 ML IV (09:38)
--- NOTE | 2023-08-09 10:27 | PC.RT ---
Pt taken off bipap and trialed on RA. Pt jon well, SATs 93%.
--- NOTE | 2023-08-09 10:57 | P.PNCC_ITS ---
Subjective Subjective Date of Service: 08/09/23 Interval History: 63-year-old gentleman with underlying history of obesity, diabetes mellitus, hypertension, polysubstance abuse including alcohol and heroin, liver cirrhosis in admitted with acute on chronic hypoxic and hypercapnic respiratory failure requiring BiPAP support after ingestion earlier on the day of admission further complicated by exacerbation of underlying chronic congestive heart failure. Overnight diuresed 3 L and titrated off BiPAP. Patient also with increasing alcohol withdrawal, started on phenobarbital protocol with good control of his symptoms. Critical Care Time (minutes): 0 Physical Exam 2 Vital Signs: Vital Signs: Last Vital Signs Temp 97.4 F 08/09/23 08:00 Pulse 52 08/09/23 10:00 Resp 16 08/09/23 10:00 BP 148/57 H 08/09/23 10:00 Pulse Ox 96 08/09/23 10:00 O2 Del Method BiPAP 08/09/23 10:00 O2 Flow Rate 30 08/08/23 15:57 FiO2 30 08/09/23 09:00 Oxygen Flow Rate 3 08/08/23 10:47 BMI result Body Mass Index 38.5 Const: General: no acute distress, alert and awake Eyes: Sclerae: sclerae normal EOM: EOMs intact bilaterally Neck: Neck: Yes no lymphadenopathy, Yes trachea midline and Yes supple Resp: Effort & Inspection: normal respiratory effort and no respiratory distress Auscultation: clear to auscultation bilaterally Cardio: Rate: regular rate Rhythm: regular rhythm Heart sounds: no gallops, no murmurs and no rubs GI: Palpation (GI): Soft to palpation and Other GI palpation findings present ( Nontender) Auscultation: normal bowel sounds Extrem: General: Yes no pedal edema, No clubbing and No cyanosis Objective Data Labs 08/09/23 04:35 08/09/23 04:35 Labs: Laboratory Results - last 24 hr 08/08/23 08/08/23 08/08/23 12:04 12:25 12:55 WBC 11.0 H RBC 4.71 Hgb 13.0 L Hct 43.0 MCV 91.3 MCH 27.6 MCHC 30.2 L RDW 16.4 H Plt Count 195 MPV 8.7 L Immature Gran % (Auto) 0.4 Neut % (Auto) 82.5 H Lymph % (Auto) 9.7 L [place] % (Auto) 6.9 Eos % (Auto) 0.0 Baso % (Auto) 0.5 Lymph # (Auto) 1.1 L [place] # (Auto) 0.8 Eos # (Auto) 0.0 Baso # (Auto) 0.1 Abs Immat Gran (auto) 0.04 H Absolute Neuts (auto) 9.1 H Absolute Nucleated RBC 0.000 Nucleated RBC % (auto) 0.0 O2 Saturation 94.0 ABG pH at Pt Temp 7.28 L ABG pCO2 at Pt Temp 62 H* ABG pO2 at Pt Temp 86 ABG HCO3 30 H ABG Base Excess (Actual) 1.9 VBG pH VBG pCO2 VBG pO2 VBG HCO3 VBG O2 Saturation VBG Base Excess Sodium 134 L Potassium 5.7 H Chloride 102 Carbon Dioxide 24 Anion Gap 14 BUN 28 H Creatinine 1.40 Estim Creat Clear Calc 64.4 Estimated GFR 52 POC Glucose 107 Random Glucose 104 Lactic Acid 2.1 H* Lactic Acid F/U @ 2Hr Calcium 9.0 D Phosphorus Magnesium 2.4 Total Bilirubin 0.4 Direct Bilirubin 0.1 AST 42 H ALT 24 Alkaline Phosphatase 188 H Ammonia 44 Troponin I High Sens 110.3 H* D B-Natriuretic Peptide 1219 H Total Protein 8.5 H Albumin 3.7 Lipase 22 Urine Opiates Screen Urine Fentanyl Screen Ur Barbiturates Screen Ur Phencyclidine Scrn Ur Amphetamines Screen U Benzodiazepines Scrn Urine Cocaine Screen U Marijuana (THC) Screen Ethyl Alcohol 66 Influenza Type A (PCR) Influenza Type B (PCR) RSV RNA Qual (PCR) SARS-CoV-2 RNA (RT-PCR) 08/08/23 08/08/23 08/08/23 13:38 14:28 15:05 WBC RBC Hgb Hct MCV MCH MCHC RDW Plt Count MPV Immature Gran % (Auto) Neut % (Auto) Lymph % (Auto) [place] % (Auto) Eos % (Auto) Baso % (Auto) Lymph # (Auto) [place] # (Auto) Eos # (Auto) Baso # (Auto) Abs Immat Gran (auto) Absolute Neuts (auto) Absolute Nucleated RBC Nucleated RBC % (auto) O2 Saturation 94.0 ABG pH at Pt Temp 7.30 L ABG pCO2 at Pt Temp 62 H* ABG pO2 at Pt Temp 82 L ABG HCO3 31 H ABG Base Excess (Actual) 3.3 VBG pH VBG pCO2 VBG pO2 VBG HCO3 VBG O2 Saturation VBG Base Excess Sodium 139 Potassium 5.7 H Chloride 99 Carbon Dioxide 30 H Anion Gap 16 BUN 29 H Creatinine 1.33 Estim Creat Clear Calc 67.8 Estimated GFR 55 POC Glucose Random Glucose 92 Lactic Acid Lactic Acid F/U @ 2Hr 1.3 Calcium 9.1 Phosphorus Magnesium Total Bilirubin Direct Bilirubin AST ALT Alkaline Phosphatase Ammonia Troponin I High Sens 92.8 H B-Natriuretic Peptide Total Protein Albumin Lipase Urine Opiates Screen POSITIVE H Urine Fentanyl Screen POSITIVE H Ur Barbiturates Screen Not Detected Ur Phencyclidine Scrn Not Detected Ur Amphetamines Screen Not Detected U Benzodiazepines Scrn Not Detected Urine Cocaine Screen Not Detected U Marijuana (THC) Screen Not Detected Ethyl Alcohol Influenza Type A (PCR) NEGATIVE Influenza Type B (PCR) NEGATIVE RSV RNA Qual (PCR) NEGATIVE SARS-CoV-2 RNA (RT-PCR) NEGATIVE 08/08/23 08/08/23 08/08/23 16:29 19:53 20:00 WBC RBC Hgb Hct MCV MCH MCHC RDW Plt Count MPV Immature Gran % (Auto) Neut % (Auto) Lymph % (Auto) [place] % (Auto) Eos % (Auto) Baso % (Auto) Lymph # (Auto) [place] # (Auto) Eos # (Auto) Baso # (Auto) Abs Immat Gran (auto) Absolute Neuts (auto) Absolute Nucleated RBC Nucleated RBC % (auto) O2 Saturation ABG pH at Pt Temp ABG pCO2 at Pt Temp ABG pO2 at Pt Temp ABG HCO3 ABG Base Excess (Actual) VBG pH VBG pCO2 VBG pO2 VBG HCO3 VBG O2 Saturation VBG Base Excess Sodium 141 Potassium 4.7 Chloride 99 Carbon Dioxide 34 H Anion Gap 13 BUN 29 H Creatinine 1.33 Estim Creat Clear Calc 67.7 Estimated GFR 55 POC Glucose 94 89 Random Glucose 81 Lactic Acid Lactic Acid F/U @ 2Hr Calcium 9.5 Phosphorus Magnesium Total Bilirubin Direct Bilirubin AST ALT Alkaline Phosphatase Ammonia Troponin I High Sens B-Natriuretic Peptide Total Protein Albumin Lipase Urine Opiates Screen Urine Fentanyl Screen Ur Barbiturates Screen Ur Phencyclidine Scrn Ur Amphetamines Screen U Benzodiazepines Scrn Urine Cocaine Screen U Marijuana (THC) Screen Ethyl Alcohol Influenza Type A (PCR) Influenza Type B (PCR) RSV RNA Qual (PCR) SARS-CoV-2 RNA (RT-PCR) 08/09/23 08/09/23 08/09/23 04:35 04:44 07:29 WBC 7.8 RBC 4.46 L Hgb 12.5 L Hct 40.8 L MCV 91.5 MCH 28.0 MCHC 30.6 L RDW 16.4 H Plt Count 162 MPV 9.4 Immature Gran % (Auto) 0.3 Neut % (Auto) 71.9 Lymph % (Auto) 14.8 L [place] % (Auto) 10.2 Eos % (Auto) 2.2 Baso % (Auto) 0.6 Lymph # (Auto) 1.2 [place] # (Auto) 0.8 Eos # (Auto) 0.2 Baso # (Auto) 0.1 Abs Immat Gran (auto) 0.02 Absolute Neuts (auto) 5.6 Absolute Nucleated RBC 0.000 Nucleated RBC % (auto) 0.0 O2 Saturation ABG pH at Pt Temp ABG pCO2 at Pt Temp ABG pO2 at Pt Temp ABG HCO3 ABG Base Excess (Actual) VBG pH 7.39 VBG pCO2 61 VBG pO2 77 VBG HCO3 37 H VBG O2 Saturation 93.0 VBG Base Excess 10.2 Sodium 141 Potassium 4.3 Chloride 101 Carbon Dioxide 33 H Anion Gap 11 L BUN 28 H Creatinine 1.16 Estim Creat Clear Calc 77.1 Estimated GFR > 60 POC Glucose 84 Random Glucose 81 Lactic Acid Lactic Acid F/U @ 2Hr Calcium 9.2 Phosphorus 3.1 Magnesium 2.2 Total Bilirubin 0.7 Direct Bilirubin AST 28 ALT 20 Alkaline Phosphatase 156 H Ammonia Troponin I High Sens B-Natriuretic Peptide Total Protein 7.2 Albumin 3.4 L Lipase Urine Opiates Screen Urine Fentanyl Screen Ur Barbiturates Screen Ur Phencyclidine Scrn Ur Amphetamines Screen U Benzodiazepines Scrn Urine Cocaine Screen U Marijuana (THC) Screen Ethyl Alcohol Influenza Type A (PCR) Influenza Type B (PCR) RSV RNA Qual (PCR) SARS-CoV-2 RNA (RT-PCR) Microbiology Microbiology Results: Microbiology 08/08/23 12:04 Blood - Venous Blood Culture - Preliminary Prelim: GPC Gram Stain only Progress Note: A&P Assessment and plan (1) Morbid obesity: Status: Acute (2) Polysubstance abuse: Status: Acute (3) Liver cirrhosis: Status: Acute (4) Chronic hypoxic respiratory failure: Status: Acute (5) Alcohol withdrawal: Status: Acute (6) DARRIAN (obstructive sleep apnea): Status: Acute Plan Assessment: 63-year-old gentleman with underlying alcoholic liver cirrhosis polysubstance abuse, COPD, diabetes mellitus admitted with acute on chronic hypoxic and hypercapnic respiratory failure now requiring BiPAP support Plan: Neuro: Metabolic encephalopathy secondary to CO2 narcosis, resolved. Alcohol withdrawal, controlled on phenobarbital protocol. Cardiac: Acute on chronic diastolic congestive heart failure. Continue IV diuresis. Pulmonary: Acute on chronic hypoxic and hypercapnic respiratory failure secondary to opioid abuse and exacerbation of underlying congestive heart failure initially requiring BiPAP support, now titrate off. Renal: No acute issues. Endo: No acute issues. Underlying diabetes mellitus, continue on sliding scale insulin protocol. GI: No acute issues. ID: No acute issues Heme/Onc: No acute issues. Psych: No acute issues. Miscellaneous: No acute issues. Prophylaxis: Heparin Diet: Diabetic Quality Stroke Does the patient have a stroke diagnosis?: No VTE Prior VTE?: No VTE Risk Level:: Medical - moderate - high VTE Device Contraindication: N/A - Device Ordered VTE Drug Contraindication: N/A - Med Ordered
--- NOTE | 2023-08-09 11:29 | PM.EVENT ---
Event Note Date of Service: 08/10/23 Event Note: pt seen and examined, transition of care discussed with Dr. Delarosa, he was admitted through ICU for acute hypercarbic respiratory failure related to heroin/fentanyl and required bipap. He is now in alcohol withdrawal as well and is on phenobarbital. He has 1/2 GPCC bacteremia likely contamination but on ceftriaxone. Med rec completed. Will get addiction med consult, o/w A/P per ICU note from today Time Spent With Patient Time: Total time managing care of this patient today ____ minutes.
[2023-08-09 11:38] LABS: Glucose, Whole Blood 86 mg/dL (60-115)
[2023-08-09] MEDS: Omeprazole 40 MG CAPSULE.DR PO (12:38)
[2023-08-09] MEDS: Thiamine HCL 100 MG TABLET PO (12:38)
[2023-08-09] MEDS: Empagliflozin 25 MG TABLET PO (12:39)
[2023-08-09] MEDS: Folic Acid 1 MG TABLET PO (12:39)
--- NOTE | 2023-08-09 12:39 | MHC.CM.PN ---
Met w/pt to review d/c planning needs: Pt states he lives w/[facility] and has no services or DME. He gets Methadone administered daily by an RN from [facility] in [place] per pt. He states he is independent with all care needs and family can provide transportation. Pt w/+ Tox screen on admission: would benefit from Care team consult prior to d/c. Declined HCP completion. CM to follow for d/c needs.
[2023-08-09] MEDS: PARoxetine HCL 20 MG TABLET PO (14:10)
[2023-08-09] MEDS: Albuterol/Iprat 2.5/0.5MG 3 ML AMPUL.NEB 1 ML INHALE (15:17)
[2023-08-09 16:13] LABS: Glucose, Whole Blood 110 mg/dL (60-115)
--- NOTE | 2023-08-09 17:30 | HE.PHANOTE ---
PT RECEIVES METHADONE 55MG FROM [facility], LAST DOSED @0947. NOTE PT WAS GIVEN 7 TAKE HOME BOTTLES ROVERTO
[2023-08-09] MEDS: methADONE HCl 20 MG/2 ML ORAL.CONC 55 MG PO (18:16)
[2023-08-09] MEDS: Albuterol/Iprat 2.5/0.5MG 3 ML AMPUL.NEB INHALE (18:55)
[2023-08-09] MEDS: Prazosin HCL 1 MG CAPSULE 2 MG PO (21:35)
[2023-08-09] MEDS: Sennosides 8.6 MG TABLET 17.2 MG PO (21:35)
[2023-08-09] MEDS: Spironolactone 25 MG TABLET PO (21:36)
[2023-08-09 21:47] LABS: Glucose, Whole Blood 116 mg/dL (60-115)
[2023-08-10] VITALS (12 sets, daily range): BP systolic 132–169; BP diastolic 66–89; PULSE 55–63; RESP 18–24; TEMP 35.6–36.6; O2SAT 88–98; BMI 39.0
[2023-08-10] MEDS: Heparin Sodium,Porcine 5,000 UNIT/ML VIAL 5000 UNIT SUBCUT ×4 (00:01→23:56)
[2023-08-10 06:14] LABS: MANUAL DIFF FLAG NO
[2023-08-10 06:17] LABS: VBG Base Excess 11.2 mmol/L; VBG HCO3 37 mmol/L (22-26); VBG pCO2 53 mmHg; VBG pH 7.45 (7.32-7.43); VBG pO2 47 mmHg
[2023-08-10] MEDS: Omeprazole 40 MG CAPSULE.DR PO (06:30)
[2023-08-10 06:37] LABS: Basophils Percent Auto 0.5 % (0-2); Eosinophils Absolute Auto 0.2 X10*3/uL (0.0-0.4); Eosinophils Percent Auto 2.1 % (0-4); Hematocrit 41.6 % (42.0-52.0); Hemoglobin 12.7 g/dl (14.0-18.0); Imm Gran Abs Auto 0.02 X10*3/uL (0.00-0.03); Imm Gran Pct Auto 0.2 % (0.0-0.4); Lymphocytes Absolute Auto 1.7 X10*3/uL (1.2-4.9); Lymphocytes Percent Auto 20.5 % (20-40); Mean Corpuscular HGB Conc 30.5 g/dl (31.0-36.0); Mean Corpuscular Hemoglobin 27.5 pg (27.0-33.0); Mean Platelet Volume 9.2 fL (9.4-12.4); Monocytes Absolute Auto 0.9 X10*3/uL (0.1-1.2); Neutrophils Absolute Auto 5.4 x10*3/uL (2.0-8.3); Neutrophils Percent Auto 65.7 % (45-73); Platelet Count 164 X10*3/uL (160-400); Red Blood Count 4.62 X10*6/uL (4.60-5.80); Red Cell Distribution Width 15.9 % (11.0-16.0); White Blood Count 8.2 X10*3/uL (4.8-10.8)
[2023-08-10 06:49] LABS: Albumin Level 3.4 g/dL (3.5-5.0); Anion Gap 11 (12-20); Blood Urea Nitrogen 24 mg/dL (9-16); Calcium 9.1 mg/dL (8.4-10.2); Carbon Dioxide 33 mmol/L (22-29); Chloride 95 mmol/L (96-108); Creatinine Clr Calc Pharmacy 81.9; Estimated Glomerular Filt Rate > 60; Glucose Random 87 mg/dL (60-115); Magnesium 2.1 mg/dL (1.6-2.6); Phosphorus 2.5 mg/dL (2.7-4.5); Potassium 4.2 mmol/L (3.3-5.1); Sodium 135 mmol/L (135-145)
[2023-08-10 06:54] LABS: Venous Blood Gas Refer to POC result
[2023-08-10 07:29] LABS: Glucose, Whole Blood 88 mg/dL (60-115)
[2023-08-10] MEDS: Albuterol/Iprat 2.5/0.5MG 3 ML AMPUL.NEB INHALE ×4 (07:29→19:46)
[2023-08-10] MEDS: methADONE HCl 20 MG/2 ML ORAL.CONC 55 MG PO (08:37)
[2023-08-10] MEDS: Thiamine HCL 100 MG TABLET PO (08:39)
[2023-08-10] MEDS: Folic Acid 1 MG TABLET PO (08:39)
[2023-08-10] MEDS: Empagliflozin 25 MG TABLET PO (08:39)
[2023-08-10] MEDS: PHENobarbitaL 15 MG TABLET 45 MG PO ×2 (08:39→22:16)
[2023-08-10] MEDS: PARoxetine HCL 20 MG TABLET PO (08:39)
--- NOTE | 2023-08-10 10:49 | MHC.RECOVRN ---
Attempted to meet with pt in [phone] after consult placed to Addiction Medicine for OUD. Pt had presented to the ED with AMS and subsquently admitted to ICU for acute hypercarbic respiratory failure requiring bipap. Pt also began experiencing alcohol withdrawal. Transferred to [facility] on 08/08. Pt currently on 55 mg methadone. Pt on the phone, tremulous. Will return later.
--- NOTE | 2023-08-10 11:09 | PM.DS ---
DS: Providers Provider Date of Service: 08/11/23 Date of admission: 08/08/23 15:42 Primary care physician: Unknown Physician Consults: 08/09/23 11:34 Addiction Medicine Routine Consulting Provider: Addiction Covering Reason for consultation: opioid use desorder Has provider been notified: No 08/10/23 08:06 Consult to Infectious Diseases Stat Consulting Provider: [facility] Infectious Disease Reason for consultation: restricted abx DS: Diagnosis Discharge Diagnosis (1) Morbid obesity: Status: Acute (2) Polysubstance abuse: Status: Acute (3) Liver cirrhosis: Status: Acute (4) Alcohol withdrawal: Status: Resolved DS: Summary Hospital Course Hospital Course: Admission HPI Chief Complaint: Alteration of mental status 63-year-old gentleman with underlying history of obesity, diabetes mellitus, hypertension, polysubstance abuse including alcohol and heroin, liver cirrhosis in admitted with acute on chronic hypoxic and hypercapnic respiratory failure requiring BiPAP support after ingestion earlier on the day of admission further complicated by exacerbation of underlying chronic congestive heart failure. Hospital course: Patient was admitted through the ICU following substance use causing acute hypoxic respiratory failure and required BiPAP use, hospital stay further complicated by congestive heart failure, alcohol withdrawal and bacteremia and that ended up being coag-negative staph. He was treated overnight in the ICU and transferred the next day, he was given phenobarbital to prevent full blown alcohol withdrawal. He is been back his baseline, breathing comfortably, there no sings of alcohol withdrawal--He was seen by addiction med Time Attestation Discharge coordination time: Greater than 30 minutes Quality: Safe Use of Opioids Does Pt have an Active Cancer Diagnosis on the Problem List?: No Quality: Stroke Does the patient have a stroke diagnosis?: No Physical Exam Vital Signs: Vital Signs: Last Vital Signs Temp 97.6 F 08/10/23 07:08 Pulse 59 08/10/23 08:50 Resp 18 08/10/23 07:29 BP 132/66 08/10/23 08:50 Pulse Ox 94 08/10/23 07:08 O2 Del Method Nasal Cannula 08/10/23 07:08 O2 Flow Rate 1 08/10/23 07:08 FiO2 30 08/09/23 09:00 Oxygen Flow Rate 3 08/08/23 10:47 BMI result Body Mass Index 39.0 DS: Data Data Completed and Pending Completed studies during hospitalization [Text1]: Procedures Labs on day of discharge: Laboratory Results - last 24 hr 08/09/23 08/09/23 08/09/23 11:33 15:59 21:23 WBC RBC Hgb Hct MCV MCH MCHC RDW Plt Count MPV Immature Gran % (Auto) Neut % (Auto) Lymph % (Auto) [place] % (Auto) Eos % (Auto) Baso % (Auto) Lymph # (Auto) [place] # (Auto) Eos # (Auto) Baso # (Auto) Abs Immat Gran (auto) Absolute Neuts (auto) Absolute Nucleated RBC Nucleated RBC % (auto) VBG pH VBG pCO2 VBG pO2 VBG HCO3 VBG O2 Saturation VBG Base Excess Sodium Potassium Chloride Carbon Dioxide Anion Gap BUN Creatinine Estim Creat Clear Calc Estimated GFR POC Glucose 86 110 116 H Random Glucose Calcium Phosphorus Magnesium Albumin 08/10/23 08/10/23 08/10/23 06:01 06:09 07:12 WBC 8.2 RBC 4.62 Hgb 12.7 L Hct 41.6 L MCV 90.0 MCH 27.5 MCHC 30.5 L RDW 15.9 Plt Count 164 MPV 9.2 L Immature Gran % (Auto) 0.2 Neut % (Auto) 65.7 Lymph % (Auto) 20.5 [place] % (Auto) 11.0 Eos % (Auto) 2.1 Baso % (Auto) 0.5 Lymph # (Auto) 1.7 [place] # (Auto) 0.9 Eos # (Auto) 0.2 Baso # (Auto) 0.0 Abs Immat Gran (auto) 0.02 Absolute Neuts (auto) 5.4 Absolute Nucleated RBC 0.000 Nucleated RBC % (auto) 0.0 VBG pH 7.45 H VBG pCO2 53 VBG pO2 47 VBG HCO3 37 H VBG O2 Saturation 77.0 VBG Base Excess 11.2 Sodium 135 Potassium 4.2 Chloride 95 L Carbon Dioxide 33 H Anion Gap 11 L BUN 24 H Creatinine 1.10 Estim Creat Clear Calc 81.9 Estimated GFR > 60 POC Glucose 88 Random Glucose 87 Calcium 9.1 Phosphorus 2.5 L Magnesium 2.1 Albumin 3.4 L Preliminary micro results at discharge 08/08/23 13:38 Blood Culture - Preliminary Blood - Venous No growth after 24 hours. Discharge Plan Discharge Anticipated Discharge Date/Time: 03/03/24 11:08 Patient Disposition: Home, Self-Care Discharge Diagnosis: Acute on chronic hypoxic hypoxic respiratory failure, alcohol withdrawal, Referrals: Physician,Unknown J [Primary Care Provider] - 1 Week Discharge Medications: Continued sennosides [Natural Senna Laxative] 8.6 mg tablet 17.2 mg PO BEDTIME Qty: 180 2RF spironolactone 25 mg tablet 1 tab PO BEDTIME paroxetine HCl 20 mg tablet 1 tab PO DAILY furosemide 20 mg tablet 20 mg PO DAILY prazosin 2 mg capsule 2 mg PO BEDTIME Combivent Respimat 20-100 mcg/actuation mist 1 puff INHALATION QID Rx Instructions: WHILE AWAKE folic acid 1 mg Tablet 1 mg PO DAILY Jardiance 25 mg tablet 25 mg PO DAILY thiamine HCl (vitamin B1) 100 mg tablet 100 mg PO DAILY (DME) Oxygen Home Use Kit See Rx Instructions .Route Rx Instructions: As directed (DME) blood-glucose meter [FreeStyle [place] Lite] Kit See Rx Instructions Not Applicable BID Qty: 1 Rx Instructions: As directed (DME) FreeStyle Lite Strips Strip See Rx Instructions Not Applicable BID Qty: 10 Rx Instructions: As directed (DME) lancets [TRUEplus Lancets] 33 gauge misc See Rx Instructions Not Applicable BID Qty: 100 Rx Instructions: As directed methadone 10 mg/mL concentrate 55 mg PO DAILY Rx Instructions: Per PT's Daughter - fills at [facility] (DME) CPAP Machine/Device Device See Rx Instructions .ROUTE Rx Instructions: As directed No Action omeprazole 40 mg capsule,delayed release(DR/EC) 40 mg PO QAM Qty: 90 3RF Discharge Orders: Discharge Order (Routine); Ordered 08/11/23 Ordered By: Christian Enamorado Diet: Diabetic diet Activity on Discharge: As tolerated Stand Alone Forms: Patient Portal Discharge page Print Language: Albanian Care Plan Goals: full recovery from acute hypoxic respiratory failure, alcohol withdrawal and heart failure Health Concerns: opioid use desorder, obesity, DARRIAN, alcohol ise desorder Plan of Treatment: Avoid using ilicit substance use oxygen, cpap as directed Assessment: see above Discharge Date/Time: 08/11/23 18:16
--- NOTE | 2023-08-10 11:14 | P.PNIM_ITS ---
Subjective Subjective Date of Service: 08/10/23 Interval History: f/u acute on chronic hypoxic respiratory failure. Overall seems better. He seems a bit shaky. Physical Exam 2 Vital Signs: Vital Signs: Last Vital Signs Temp 97.6 F 08/10/23 07:08 Pulse 59 08/10/23 11:10 Resp 18 08/10/23 11:10 BP 132/66 08/10/23 08:50 Pulse Ox 94 08/10/23 07:08 O2 Del Method Nasal Cannula 08/10/23 07:08 O2 Flow Rate 1 08/10/23 07:08 FiO2 30 08/09/23 09:00 Oxygen Flow Rate 3 08/08/23 10:47 BMI result Body Mass Index 39.0 General: AO X 3, no acute distress Resp: CTA bilateral CVS: S1,S2,RRR GI: +BS, NT, no distention Skin: No rash Neuro: motor grossly intact Psych: appropriate affect Objective Data Active Medications Albuterol/Ipratropium (Albuterol/Iprat 2.5/0.5mg 3 Ml Ampul.Neb) 3 ml INHALE RQID [facility] Last Admin: 08/10/23 11:09 Dose: 3 ml Documented By: JARRELL Empagliflozin (Empagliflozin 25 Mg Tablet) 25 mg PO DAILY [facility] Last Admin: 08/10/23 08:39 Dose: 25 mg Documented By: MAGDA Folic Acid (Folic Acid 1 Mg Tablet) 1 mg PO DAILY [facility] Last Admin: 08/10/23 08:39 Dose: 1 mg Documented By: MAGDA Heparin Sodium (Porcine) (Heparin Sodium,Porcine 5,000 Unit/Ml Vial) 5,000 unit SUBCUT Q8H [facility] Last Admin: 08/10/23 08:38 Dose: 5,000 unit Documented By: MAGDA Insulin Human Lispro (Insulin Lispro 100 Unit/Ml 3 Ml Vial) 0 unit SUBCUT QIDACHS [facility]; Protocol Last Admin: 08/10/23 07:30 Dose: Not Given Documented By: MAGDA Non-Admin Reason: No Insulin Coverage Methadone HCl (Methadone Hcl 20 Mg/2 Ml Oral.Conc) 55 mg PO DAILY [facility] Last Admin: 08/10/23 08:37 Dose: 55 mg Documented By: MAGDA Omeprazole (Omeprazole 40 Mg Capsule.Dr) 40 mg PO DAILY@0630 [facility] Last Admin: 08/10/23 06:30 Dose: 40 mg Documented By: TIA Paroxetine HCl (Paroxetine Hcl 20 Mg Tablet) 20 mg PO DAILY [facility] Last Admin: 08/10/23 08:39 Dose: 20 mg Documented By: MAGDA Pharmacy Consult (Consult Rx Etoh Phenob Im/Po) 1 each MISCELLANE ONCE PRN; Protocol PRN Reason: Consult order Phenobarbital (Phenobarbital 15 Mg Tablet) 45 mg PO BID [facility] Stop: 08/10/23 21:01 Last Admin: 08/10/23 08:39 Dose: 45 mg Documented By: MAGDA Phenobarbital (Phenobarbital 30 Mg Tablet) 30 mg PO BID [facility] Stop: 08/12/23 21:01 Phenobarbital (Phenobarbital 15 Mg Tablet) 15 mg PO DAILY [facility] Stop: 08/14/23 09:01 Prazosin HCl (Prazosin Hcl 1 Mg Capsule) 2 mg PO BEDTIME [facility]; Protocol Last Admin: 08/09/23 21:35 Dose: 2 mg Documented By: TIA Senna (Sennosides 8.6 Mg Tablet) 17.2 mg PO BEDTIME [facility] Last Admin: 08/09/23 21:35 Dose: 17.2 mg Documented By: TIA Spironolactone (Spironolactone 25 Mg Tablet) 25 mg PO BEDTIME [facility]; Protocol Last Admin: 08/09/23 21:36 Dose: 25 mg Documented By: TIA Thiamine HCl (Thiamine Hcl 100 Mg Tablet) 100 mg PO DAILY [facility] Last Admin: 08/10/23 08:39 Dose: 100 mg Documented By: MAGDA Labs 08/10/23 06:01 08/10/23 06:01 Labs: Laboratory Results - last 24 hr 08/09/23 08/09/23 08/09/23 11:33 15:59 21:23 MCV MCH MCHC RDW Plt Count MPV Immature Gran % (Auto) Neut % (Auto) Lymph % (Auto) [place] % (Auto) Eos % (Auto) Baso % (Auto) Lymph # (Auto) [place] # (Auto) Eos # (Auto) Baso # (Auto) Abs Immat Gran (auto) Absolute Neuts (auto) Absolute Nucleated RBC Nucleated RBC % (auto) VBG pH VBG pCO2 VBG pO2 VBG HCO3 VBG O2 Saturation VBG Base Excess Anion Gap Estim Creat Clear Calc Estimated GFR POC Glucose 86 110 116 H Random Glucose Calcium Phosphorus Magnesium Albumin 08/10/23 08/10/23 08/10/23 06:01 06:09 07:12 MCV 90.0 MCH 27.5 MCHC 30.5 L RDW 15.9 Plt Count 164 MPV 9.2 L Immature Gran % (Auto) 0.2 Neut % (Auto) 65.7 Lymph % (Auto) 20.5 [place] % (Auto) 11.0 Eos % (Auto) 2.1 Baso % (Auto) 0.5 Lymph # (Auto) 1.7 [place] # (Auto) 0.9 Eos # (Auto) 0.2 Baso # (Auto) 0.0 Abs Immat Gran (auto) 0.02 Absolute Neuts (auto) 5.4 Absolute Nucleated RBC 0.000 Nucleated RBC % (auto) 0.0 VBG pH 7.45 H VBG pCO2 53 VBG pO2 47 VBG HCO3 37 H VBG O2 Saturation 77.0 VBG Base Excess 11.2 Anion Gap 11 L Estim Creat Clear Calc 81.9 Estimated GFR > 60 POC Glucose 88 Random Glucose 87 Calcium 9.1 Phosphorus 2.5 L Magnesium 2.1 Albumin 3.4 L Microbiology Microbiology Results: Microbiology 08/08/23 12:04 Blood Culture - Final Blood - Venous Coag negative Staphylococcus 08/08/23 13:38 Blood Culture - Preliminary Blood - Venous No growth after 24 hours. Assessment and Plan (1) Polysubstance abuse: Status: Acute (2) Morbid obesity: Status: Acute (3) Alcohol withdrawal: Status: Acute (4) Chronic hypoxic respiratory failure: Status: Acute Plan 63-year-old gentleman with underlying history of obesity, diabetes mellitus, hypertension, polysubstance abuse including alcohol and heroin, liver cirrhosis in admitted with acute on chronic hypoxic and hypercapnic respiratory failure requiring BiPAP support after ingestion earlier on the day of admission further complicated by exacerbation of underlying chronic congestive heart failure. Acute hypoxic resp failure d/t opioid use complicated by underlying hypoventilation, copd and possible heart failure. He required bipap in icu and is now better -continue O2, goal of 88 to 92 alcohol withdrawal --Phenobarbital OUD--addiction med consult -continue methaone morbid obesity--weight loss advised HFrEF--appear compensated -continue jardiance, aldactone need for inpatient: alcohol withdrawal on phenobarb Quality Stroke Does the patient have a stroke diagnosis?: No VTE Prior VTE?: No VTE Risk Level:: Medical - moderate - high VTE Device Contraindication: N/A - Device Ordered VTE Drug Contraindication: N/A - Med Ordered
[2023-08-10 11:25] LABS: Glucose, Whole Blood 129 mg/dL (60-115)
--- NOTE | 2023-08-10 15:57 | PC.NURSE ---
This RN pulled pt robles @ 1440. Urine output before pull in bag was 900cc. Awaiting void. Voiding trial till 2039, will continue to monitor.
[2023-08-10 16:16] LABS: Glucose, Whole Blood 136 mg/dL (60-115)
[2023-08-10 20:24] LABS: Glucose, Whole Blood 151 mg/dL (60-115)
[2023-08-10] MEDS: Spironolactone 25 MG TABLET PO (22:15)
[2023-08-10] MEDS: Sennosides 8.6 MG TABLET 17.2 MG PO (22:15)
[2023-08-10] MEDS: Prazosin HCL 1 MG CAPSULE 2 MG PO (22:15)
[2023-08-10] MEDS: Insulin Lispro 100 UNIT/ML 3 ML VIAL SUBCUT (22:16)
[2023-08-11] VITALS (12 sets, daily range): BP systolic 122–164; BP diastolic 68–97; PULSE 45–78; RESP 17–23; TEMP 36.3–37.2; O2SAT 86–97; BMI 38.9
[2023-08-11] MEDS: PHENobarbitaL sodium 130 MG/ML VIAL IM (01:48)
[2023-08-11] MEDS: Omeprazole 40 MG CAPSULE.DR PO (06:11)
[2023-08-11] MEDS: Albuterol/Iprat 2.5/0.5MG 3 ML AMPUL.NEB INHALE ×3 (07:42→15:15)
[2023-08-11 07:50] LABS: Glucose, Whole Blood 88 mg/dL (60-115)
[2023-08-11] MEDS: PHENobarbitaL 30 MG TABLET PO (10:12)
[2023-08-11] MEDS: Empagliflozin 25 MG TABLET PO (10:12)
[2023-08-11] MEDS: Folic Acid 1 MG TABLET PO (10:12)
[2023-08-11] MEDS: Thiamine HCL 100 MG TABLET PO (10:12)
[2023-08-11] MEDS: PARoxetine HCL 20 MG TABLET PO (10:12)
[2023-08-11] MEDS: Heparin Sodium,Porcine 5,000 UNIT/ML VIAL 5000 UNIT SUBCUT ×2 (10:12→16:03)
[2023-08-11] MEDS: methADONE HCl 20 MG/2 ML ORAL.CONC 55 MG PO (10:13)
[2023-08-11 11:29] LABS: Glucose, Whole Blood 163 mg/dL (60-115)
[2023-08-11] MEDS: Insulin Lispro 100 UNIT/ML 3 ML VIAL SUBCUT (11:34)
--- NOTE | 2023-08-11 12:08 | HO.ADDICT_ITS ---
History of Present Illness Date of Service: 08/10/22 Chief Complaint: Dyspnea Reason for Consult: JUSTIN Sources of Information: patient interviewed (attempted to interview patient ) and chart reviewed HPI Narrative: Patient is a 63 year old [place] speaking male, with OUD and AUD, medically admitted with respirator failure --thought to be secondary to [place] fentanyl use and alcohol withdrawal. All information gathered from EMR as patient was unable to wake long enough to engage in interview. Per ER note, patient was found to be quite lethargic at home when visited by [facility]-who reportedly administers methadone and brought to ED. Family reports that patient also drinks daily. Medical Evaluation Reviewed: Yes Review of Systems Review of Systems Yes Unobtainable due to mental status Diagnostics Vital Signs (24Hr): Vital Signs - 24 hr 08/10/23 15:02 08/10/23 15:34 08/10/23 19:46 Temperature 97.6 F Pulse Rate 63 55 55 Respiratory Rate 18 18 18 Blood Pressure 146/89 H Pulse Oximetry 92 Oxygen Delivery Method Nasal Cannula Oxygen Flow Rate 1 Fraction of Inspired Oxygen 08/10/23 20:00 08/10/23 22:34 08/10/23 23:39 Temperature 97.5 F 96.0 F L Pulse Rate 59 58 Respiratory Rate 19 24 H 20 Blood Pressure 169/76 H 137/88 Pulse Oximetry 90 L 88 L Oxygen Delivery Method Nasal Cannula High Flow Nasal Cannula Oxygen Flow Rate 1 Fraction of Inspired Oxygen 08/11/23 01:53 08/11/23 03:37 08/11/23 03:52 Temperature 98.2 F Pulse Rate 57 59 Respiratory Rate 19 20 20 Blood Pressure 158/75 H 146/97 H Pulse Oximetry 97 86 L Oxygen Delivery Method High Flow Nasal Cannula High Flow Nasal Cannula Oxygen Flow Rate Fraction of Inspired Oxygen 30 30 08/11/23 04:15 08/11/23 07:16 08/11/23 07:42 Temperature 98.9 F Pulse Rate 56 50 Respiratory Rate 20 20 22 H Blood Pressure 164/79 H Pulse Oximetry 94 94 Oxygen Delivery Method BiPAP CPAP Oxygen Flow Rate Fraction of Inspired Oxygen 30 08/11/23 07:47 08/11/23 11:06 08/11/23 11:16 Temperature 98.9 F Pulse Rate 53 49 L 50 Respiratory Rate 23 H 20 17 Blood Pressure 122/78 Pulse Oximetry 97 Oxygen Delivery Method Nasal Cannula Oxygen Flow Rate 2 Fraction of Inspired Oxygen 08/11/23 11:20 Temperature Pulse Rate Respiratory Rate 17 Blood Pressure Pulse Oximetry Oxygen Delivery Method Oxygen Flow Rate Fraction of Inspired Oxygen BMI result Body Mass Index 38.9 Labs 08/10/23 06:01 08/10/23 06:01 Labs: Laboratory Results - last 48 hr 08/09/23 08/09/23 08/10/23 15:59 21:23 06:01 WBC 8.2 RBC 4.62 Hgb 12.7 L Hct 41.6 L MCV 90.0 MCH 27.5 MCHC 30.5 L RDW 15.9 Plt Count 164 MPV 9.2 L Immature Gran % (Auto) 0.2 Neut % (Auto) 65.7 Lymph % (Auto) 20.5 Ransom % (Auto) 11.0 Eos % (Auto) 2.1 Baso % (Auto) 0.5 Lymph # (Auto) 1.7 Ransom # (Auto) 0.9 Eos # (Auto) 0.2 Baso # (Auto) 0.0 Abs Immat Gran (auto) 0.02 Absolute Neuts (auto) 5.4 Absolute Nucleated RBC 0.000 Nucleated RBC % (auto) 0.0 VBG pH VBG pCO2 VBG pO2 VBG HCO3 VBG O2 Saturation VBG Base Excess Sodium 135 Potassium 4.2 Chloride 95 L Carbon Dioxide 33 H Anion Gap 11 L BUN 24 H Creatinine 1.10 Estim Creat Clear Calc 81.9 Estimated GFR > 60 POC Glucose 110 116 H Random Glucose 87 Calcium 9.1 Phosphorus 2.5 L Magnesium 2.1 Albumin 3.4 L 08/10/23 08/10/23 08/10/23 06:09 07:12 11:12 WBC RBC Hgb Hct MCV MCH MCHC RDW Plt Count MPV Immature Gran % (Auto) Neut % (Auto) Lymph % (Auto) Ransom % (Auto) Eos % (Auto) Baso % (Auto) Lymph # (Auto) Ransom # (Auto) Eos # (Auto) Baso # (Auto) Abs Immat Gran (auto) Absolute Neuts (auto) Absolute Nucleated RBC Nucleated RBC % (auto) VBG pH 7.45 H VBG pCO2 53 VBG pO2 47 VBG HCO3 37 H VBG O2 Saturation 77.0 VBG Base Excess 11.2 Sodium Potassium Chloride Carbon Dioxide Anion Gap BUN Creatinine Estim Creat Clear Calc Estimated GFR POC Glucose 88 129 H Random Glucose Calcium Phosphorus Magnesium Albumin 08/10/23 08/10/23 08/11/23 16:12 19:20 07:18 WBC RBC Hgb Hct MCV MCH MCHC RDW Plt Count MPV Immature Gran % (Auto) Neut % (Auto) Lymph % (Auto) Ransom % (Auto) Eos % (Auto) Baso % (Auto) Lymph # (Auto) Ransom # (Auto) Eos # (Auto) Baso # (Auto) Abs Immat Gran (auto) Absolute Neuts (auto) Absolute Nucleated RBC Nucleated RBC % (auto) VBG pH VBG pCO2 VBG pO2 VBG HCO3 VBG O2 Saturation VBG Base Excess Sodium Potassium Chloride Carbon Dioxide Anion Gap BUN Creatinine Estim Creat Clear Calc Estimated GFR POC Glucose 136 H 151 H 88 Random Glucose Calcium Phosphorus Magnesium Albumin 08/11/23 11:11 WBC RBC Hgb Hct MCV MCH MCHC RDW Plt Count MPV Immature Gran % (Auto) Neut % (Auto) Lymph % (Auto) Ransom % (Auto) Eos % (Auto) Baso % (Auto) Lymph # (Auto) Ransom # (Auto) Eos # (Auto) Baso # (Auto) Abs Immat Gran (auto) Absolute Neuts (auto) Absolute Nucleated RBC Nucleated RBC % (auto) VBG pH VBG pCO2 VBG pO2 VBG HCO3 VBG O2 Saturation VBG Base Excess Sodium Potassium Chloride Carbon Dioxide Anion Gap BUN Creatinine Estim Creat Clear Calc Estimated GFR POC Glucose 163 H Random Glucose Calcium Phosphorus Magnesium Albumin Imaging Radiology Impressions: ITS Impressions Cervical Spine CT 08/08/23 12:33 IMPRESSION: CT HEAD: No acute intracranial finding. CT CERVICAL SPINE: No cervical spine fracture or traumatic malalignment identified. Straightening of cervical lordosis due to muscle spasm. Multilevel degenerative changes. Head CT 08/08/23 12:33 IMPRESSION: CT HEAD: No acute intracranial finding. CT CERVICAL SPINE: No cervical spine fracture or traumatic malalignment identified. Straightening of cervical lordosis due to muscle spasm. Multilevel degenerative changes. Chest X-Ray 08/08/23 12:42 IMPRESSION: Cardiomegaly and vascular redistribution Abdomen/Pelvis CT 08/08/23 14:30 IMPRESSION: 1. No evidence of pulmonary embolism. No evidence of aortic dissection. 2. Low lung volume bilaterally with mild vascular congestion. 3. Cirrhotic liver with caudate lobe hypertrophy. 4. Cholelithiasis without evidence of cholecystitis. 5. Mild haziness of mesentery adjacent to the pancreatic body possibly due to sclerosing mesenteritis more than pancreatitis, correlate clinically. 6. Scattered mesenteric lymph nodes. VTE: Negative. Chest CTA 08/08/23 14:30 IMPRESSION: 1. No evidence of pulmonary embolism. No evidence of aortic dissection. 2. Low lung volume bilaterally with mild vascular congestion. 3. Cirrhotic liver with caudate lobe hypertrophy. 4. Cholelithiasis without evidence of cholecystitis. 5. Mild haziness of mesentery adjacent to the pancreatic body possibly due to sclerosing mesenteritis more than pancreatitis, correlate clinically. 6. Scattered mesenteric lymph nodes. VTE: Negative. Mental Status Exam Mental Status Exam Level of Consciousness: Drowsy Medications Medications Current Medications Albuterol/Ipratropium (Albuterol/Iprat 2.5/0.5mg 3 Ml Ampul.Neb) 3 ml INHALE RQID [facility] Last Admin: 08/11/23 11:16 Dose: 3 ml Empagliflozin (Empagliflozin 25 Mg Tablet) 25 mg PO DAILY [facility] Last Admin: 08/11/23 10:12 Dose: 25 mg Folic Acid (Folic Acid 1 Mg Tablet) 1 mg PO DAILY [facility] Last Admin: 08/11/23 10:12 Dose: 1 mg Heparin Sodium (Porcine) (Heparin Sodium,Porcine 5,000 Unit/Ml Vial) 5,000 unit SUBCUT Q8H [facility] Last Admin: 08/11/23 10:12 Dose: 5,000 unit Insulin Human Lispro (Insulin Lispro 100 Unit/Ml 3 Ml Vial) 0 unit SUBCUT QIDACHS [facility]; Protocol Last Admin: 08/11/23 11:34 Dose: 2 unit Methadone HCl (Methadone Hcl 20 Mg/2 Ml Oral.Conc) 55 mg PO DAILY [facility] Last Admin: 08/11/23 10:13 Dose: 55 mg Omeprazole (Omeprazole 40 Mg Capsule.Dr) 40 mg PO DAILY@0630 [facility] Last Admin: 08/11/23 06:11 Dose: 40 mg Paroxetine HCl (Paroxetine Hcl 20 Mg Tablet) 20 mg PO DAILY [facility] Last Admin: 08/11/23 10:12 Dose: 20 mg Pharmacy Consult (Consult Rx Etoh Phenob Im/Po) 1 each MISCELLANE ONCE PRN; Protocol PRN Reason: Consult order Phenobarbital (Phenobarbital 30 Mg Tablet) 30 mg PO BID [facility] Stop: 08/12/23 21:01 Last Admin: 08/11/23 10:12 Dose: 30 mg Phenobarbital (Phenobarbital 15 Mg Tablet) 15 mg PO DAILY [facility] Stop: 08/14/23 09:01 Prazosin HCl (Prazosin Hcl 1 Mg Capsule) 2 mg PO BEDTIME [facility]; Protocol Last Admin: 08/10/23 22:15 Dose: 2 mg Senna (Sennosides 8.6 Mg Tablet) 17.2 mg PO BEDTIME [facility] Last Admin: 08/10/23 22:15 Dose: 17.2 mg Spironolactone (Spironolactone 25 Mg Tablet) 25 mg PO BEDTIME [facility]; Protocol Last Admin: 08/10/23 22:15 Dose: 25 mg Thiamine HCl (Thiamine Hcl 100 Mg Tablet) 100 mg PO DAILY [facility] Last Admin: 08/11/23 10:12 Dose: 100 mg Allergies Allergies Allergy/AdvReac Type Severity Reaction Status Date / Time aspirin [ASPIRIN] Allergy Unknown RASH Verified 08/08/23 10:52 ibuprofen Allergy Unknown nausea and Verified 08/08/23 10:52 vomiting Assessment & Plan Assessment & Plan (1) Opioid use disorder: Status: Acute Code(s): F11.90 - Opioid use, unspecified, uncomplicated Assessment and Plan: * engaged with OTP * would benefit from risk reduction discussion related to ongoing fentanyl use and alcohol use --will check in tmrw 08/11 (2) Alcohol use disorder, severe, dependence: Status: Acute Code(s): F10.20 - Alcohol dependence, uncomplicated Assessment and Plan: * phenobarbital withdrawal management Total time managing care of this patient today __15__ minutes. [facility] Past Medical History Medical History (Updated 08/11/23 @ 12:20 by Shania Martino CNP) Morbid obesity Chronic hypoxic respiratory failure Restrictive lung disease Obesity hypoventilation syndrome DARRIAN treated with BiPAP Chronic respiratory failure Acute respiratory failure with hypoxia History of opiate therapy Morbid obesity due to excess calories CKD (chronic kidney disease) stage 3, GFR 30-59 ml/min Liver cirrhosis DARRIAN (obstructive sleep apnea) Chronic kidney disease Congestive heart failure Diabetes Family History Family History Mother Cancer Diabetes Surgical History Surgical History No pertinent past surgical history Social History Social History Household Members: Spouse Housing: House Do you presently have visiting nurse or other home services: Yes (comes in everyday to administer Methadone) Alcohol intake: current Alcohol intake frequency: 3 or more drinks per day Alcohol type: beer Comment: restraints Patient Tobacco Use Status: Never used Tobacco e-Cigarette/Vaping Use: Never Used Substance Use Type: Heroin service: No Current occupational status: disabled
[2023-08-11 15:52] LABS: Glucose, Whole Blood 103 mg/dL (60-115)
--- NOTE | 2023-08-11 15:56 | W.PM.IDCN ---
History of Present Illness Data of Consult Service Date: 08/11/23 Requesting physician: Christian Ac Primary Care Provider: Unknown Physician HPI Reason for consult: shortness of breath He presents with weakness and cough and shortness of breath. He is on oxygen. He has no current complaints. Review of Systems Review of Systems: Yes Unobtainable due to mental condition PMFSH Past Medical History Medical History Morbid obesity Chronic hypoxic respiratory failure Restrictive lung disease Obesity hypoventilation syndrome DARRIAN treated with BiPAP Chronic respiratory failure Acute respiratory failure with hypoxia History of opiate therapy Morbid obesity due to excess calories CKD (chronic kidney disease) stage 3, GFR 30-59 ml/min Liver cirrhosis DARRIAN (obstructive sleep apnea) Chronic kidney disease Congestive heart failure Diabetes Family History Family History Mother Cancer Diabetes Family history: reviewed and not pertinent Surgical History Surgical History No pertinent past surgical history Social History Social History Household Members: Spouse Housing: House Do you presently have visiting nurse or other home services: Yes (comes in everyday to administer Methadone) Alcohol intake: current Alcohol intake frequency: 3 or more drinks per day Alcohol type: beer Comment: restraints Patient Tobacco Use Status: Never used Tobacco e-Cigarette/Vaping Use: Never Used Substance Use Type: Heroin service: No Current occupational status: disabled Meds Allergies Allergy/AdvReac Type Severity Reaction Status Date / Time aspirin [ASPIRIN] Allergy Unknown RASH Verified 08/08/23 10:52 ibuprofen Allergy Unknown nausea and Verified 08/08/23 10:52 vomiting Active Medications: Current Medications Albuterol/Ipratropium (Albuterol/Iprat 2.5/0.5mg 3 Ml Ampul.Neb) 3 ml INHALE RQID [facility] Last Admin: 08/11/23 15:15 Dose: 3 ml Empagliflozin (Empagliflozin 25 Mg Tablet) 25 mg PO DAILY [facility] Last Admin: 08/11/23 10:12 Dose: 25 mg Folic Acid (Folic Acid 1 Mg Tablet) 1 mg PO DAILY [facility] Last Admin: 08/11/23 10:12 Dose: 1 mg Heparin Sodium (Porcine) (Heparin Sodium,Porcine 5,000 Unit/Ml Vial) 5,000 unit SUBCUT Q8H [facility] Last Admin: 08/11/23 10:12 Dose: 5,000 unit Insulin Human Lispro (Insulin Lispro 100 Unit/Ml 3 Ml Vial) 0 unit SUBCUT QIDACHS [facility]; Protocol Last Admin: 08/11/23 11:34 Dose: 2 unit Methadone HCl (Methadone Hcl 20 Mg/2 Ml Oral.Conc) 55 mg PO DAILY [facility] Last Admin: 08/11/23 10:13 Dose: 55 mg Omeprazole (Omeprazole 40 Mg Capsule.Dr) 40 mg PO DAILY@0630 [facility] Last Admin: 08/11/23 06:11 Dose: 40 mg Paroxetine HCl (Paroxetine Hcl 20 Mg Tablet) 20 mg PO DAILY [facility] Last Admin: 08/11/23 10:12 Dose: 20 mg Pharmacy Consult (Consult Rx Etoh Phenob Im/Po) 1 each MISCELLANE ONCE PRN; Protocol PRN Reason: Consult order Phenobarbital (Phenobarbital 30 Mg Tablet) 30 mg PO BID [facility] Stop: 08/12/23 21:01 Last Admin: 08/11/23 10:12 Dose: 30 mg Phenobarbital (Phenobarbital 15 Mg Tablet) 15 mg PO DAILY [facility] Stop: 08/14/23 09:01 Prazosin HCl (Prazosin Hcl 1 Mg Capsule) 2 mg PO BEDTIME [facility]; Protocol Last Admin: 08/10/23 22:15 Dose: 2 mg Senna (Sennosides 8.6 Mg Tablet) 17.2 mg PO BEDTIME [facility] Last Admin: 08/10/23 22:15 Dose: 17.2 mg Spironolactone (Spironolactone 25 Mg Tablet) 25 mg PO BEDTIME [facility]; Protocol Last Admin: 08/10/23 22:15 Dose: 25 mg Thiamine HCl (Thiamine Hcl 100 Mg Tablet) 100 mg PO DAILY [facility] Last Admin: 08/11/23 10:12 Dose: 100 mg Home Medications Medication Instructions Recorded Confirmed Last Taken Type thiamine HCl (vitamin B1) 100 mg 100 mg PO DAILY 06/18/21 08/08/23 08/08/23 History tablet blood sugar diagnostic (FreeStyle #10 ea 12/12/21 12/11/22 11/22/22 History Lite Strips) blood-glucose meter (FreeStyle #1 ea 12/12/21 12/11/22 11/22/22 History [place] Lite kit) furosemide 20 mg tablet 20 mg PO DAILY 12/12/21 08/08/23 08/08/23 History lancets 33 gauge (TRUEplus Lancets) #100 ea 12/12/21 12/11/22 11/22/22 History methadone 10 mg/mL oral concentrate 55 mg PO DAILY 02/20/22 08/09/23 Unknown History paroxetine HCl 20 mg tablet 1 tab PO DAILY 04/11/22 08/08/23 08/08/23 History spironolactone 25 mg tablet 1 tab PO BEDTIME 04/11/22 08/08/23 11/21/22 History Oxygen Home Use 04/22/22 12/11/22 11/22/22 History omeprazole 40 mg capsule,delayed 40 mg PO DAILY@0630 11/23/22 08/08/23 08/08/23 History release CPAP (CPAP Machine/Device) 04/25/23 Unknown History empagliflozin 25 mg tablet 25 mg PO DAILY 08/08/23 08/08/23 08/08/23 History (Jardiance) folic acid 1 mg tablet 1 mg PO DAILY 08/08/23 08/08/23 08/08/23 History ipratropium 20 mcg-albuterol 100 1 puff inhalation QID 08/08/23 08/08/23 08/08/23 History mcg/actuation mist for inhalation (Combivent Respimat) prazosin 2 mg capsule 2 mg PO BEDTIME 08/08/23 08/08/23 Unknown History Physical Exam Vital Signs: Vital Signs: Last Vital Signs Temp 97.3 F 08/11/23 14:50 Pulse 78 08/11/23 15:16 Resp 20 08/11/23 15:16 BP 158/68 H 08/11/23 14:50 Pulse Ox 96 08/11/23 14:50 O2 Del Method Nasal Cannula 08/11/23 14:50 O2 Flow Rate 2 08/11/23 14:50 FiO2 30 08/11/23 04:15 Oxygen Flow Rate 3 08/08/23 10:47 BMI result Body Mass Index 38.9 Const: General: cooperative HEENT: Head: Yes normal to inspection Face and sinus: Yes normal facial exam Mouth: Normal oral and palatal mucosa present Teeth and gingiva: dentition normal Eyes: General: appearance normal, both eyes and all related structures Pupils: Equal, round and reactive pupils present Resp: Effort & Inspection: normal respiratory effort Cardio: Rate: regular rate Rhythm: regular rhythm GI: Palpation (GI): Soft to palpation and nontender : General: Yes no CVA tenderness Back/Spine/Pelvis: Back: no CVA tenderness Skin: General skin exam: no rashes or lesions noted Neuro: General: moves all extremities Cranial nerves: Yes Equal, round and reactive pupils present Extrem: General: Yes normal to inspection Psych: Appearance: grossly normal Results Labs 08/10/23 06:01 08/10/23 06:01 Microbiology Microbiology Results: Microbiology 08/08/23 13:38 Blood - Venous Blood Culture - Preliminary No growth after 48 hours. 08/08/23 12:04 Blood - Venous Blood Culture - Final Coag negative Staphylococcus Assessment and Plan (1) Respiratory failure: Status: Acute Plan There is no definite pneumonic infiltrate or fever He has alcohol withdrawal apparently. Agree no antibiotics at this time.
[2023-08-11 16:30] LABS: ABG Base Excess 7.3 mmol/L; ABG HCO3 34 mmol/L (22-26); ABG pCO2 61 mmHg (32-45); ABG pH 7.36 (7.35-7.45); ABG pO2 90 mmHg (83-108)
== END 2023-08-11 18:16 | disposition home or self-care (01) | DRG 133 ==
LOC: HO.ED 15:29 → HO.EDOVER 15:48 → HO.ICU 15:49 → HO.IMC 08-09 11:18
PROVIDERS: Admitting Provider Internal Medicine Pulmonary Disease; Emergency Provider Emergency Medicine Emergency Medical Services; Referring Provider Internal Medicine; Visit Provider Internal Medicine
DX: J96.21 Acute and chronic respiratory failure with hypoxia (principal); G93.41 Metabolic encephalopathy; I50.22 Chronic systolic (congestive) heart failure; E11.22 Type 2 diabetes mellitus with diabetic chronic kidney disease; E66.01 Morbid (severe) obesity due to excess calories; G47.33 Obstructive sleep apnea (adult) (pediatric); F19.10 Other psychoactive substance abuse, uncomplicated; F10.139 Alcohol abuse with withdrawal, unspecified; K70.30 Alcoholic cirrhosis of liver without ascites; N18.30 Chronic kidney disease, stage 3 unspecified; J96.22 Acute and chronic respiratory failure with hypercapnia; F11.20 Opioid dependence, uncomplicated; Y90.3 Blood alcohol level of 60-79 mg/100 ml; Z20.822 Contact with and (suspected) exposure to COVID-19; Z68.38 Body mass index [BMI] 38.0-38.9, adult; Z79.84 Long term (current) use of oral hypoglycemic drugs; Z79.899 Other long term (current) drug therapy
CPT/HCPCS: 0241U; 36415; 70450; 71045; 71275; 72125; 74177; 80048; 80053; 80076; 80307; 82040; 82140; 82803; 82947; 83605; 83690; 83735; 83880; 84100; 84484; 85025; 87040; 87147; 87205; 93005; 94640; 94660; 94799; 99285; C1758; J0696; J1644; J1940; J2185; J2560; Q9967

== ENCOUNTER → 2023-08-08 11:46 | Outpatient (BNV) | payer MEDICAID, SELFPAY | PROVIDERS: Emergency Provider Emergency Medicine Emergency Medical Services; Visit Provider Internal Medicine | DX: R41.82 Altered mental status, unspecified (principal) | CPT/HCPCS: 93010 ==

== ENCOUNTER → 2023-08-08 15:42 | Outpatient (BNV) | payer MEDICAID, SELFPAY | PROVIDERS: Admitting Provider Internal Medicine Pulmonary Disease; Emergency Provider Emergency Medicine Emergency Medical Services; Visit Provider Internal Medicine | DX: E66.01 Morbid (severe) obesity due to excess calories (principal); F19.10 Other psychoactive substance abuse, uncomplicated; K74.60 Unspecified cirrhosis of liver; F10.939 Alcohol use, unspecified with withdrawal, unspecified | CPT/HCPCS: 99232; 99239; 99499 ==

== ENCOUNTER → 2023-08-08 15:42 | Outpatient (BNV) | payer MEDICAID, SELFPAY | PROVIDERS: Admitting Provider Internal Medicine Pulmonary Disease; Emergency Provider Emergency Medicine Emergency Medical Services; Visit Provider Internal Medicine Pulmonary Disease | DX: J96.90 Respiratory failure, unspecified, unspecified whether with hypoxia or hypercapnia (principal); F19.10 Other psychoactive substance abuse, uncomplicated; K74.60 Unspecified cirrhosis of liver; I50.22 Chronic systolic (congestive) heart failure; G47.33 Obstructive sleep apnea (adult) (pediatric) | CPT/HCPCS: 99223; 99233 ==

== ENCOUNTER → 2023-08-08 15:42 | Outpatient (BNV) | payer OTHER, SELFPAY | PROVIDERS: Admitting Provider Internal Medicine Pulmonary Disease; Emergency Provider Emergency Medicine Emergency Medical Services; Visit Provider Nurse Practitioner Psychiatric/Mental Health | DX: F10.20 Alcohol dependence, uncomplicated (principal); F11.90 Opioid use, unspecified, uncomplicated | CPT/HCPCS: 99231 ==

== ENCOUNTER → 2023-08-08 15:42 | Outpatient (BNV) | payer MEDICAID, SELFPAY | PROVIDERS: Admitting Provider Internal Medicine Pulmonary Disease; Emergency Provider Emergency Medicine Emergency Medical Services; Visit Provider Internal Medicine | DX: J96.90 Respiratory failure, unspecified, unspecified whether with hypoxia or hypercapnia (principal) | CPT/HCPCS: 99222 ==

== ENCOUNTER 2023-09-01 10:28 | Outpatient (AMB) | payer MEDICAID, SELFPAY ==
[2023-09-01 10:49] VITALS: PULSE 67; O2SAT 94; BMI 39.0
--- NOTE | 2023-09-01 10:49 | A.OFFVIS_ITS ---
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 He has been noticing his breathing has been getting worse now for several months. it is mainly with activity. He denies any shortness of breath while lying flat. The patient has gained weight. He has also noticed lower extremity edema. He has been on diuretics. He does have significant daytime drowsiness. Patient has an Rye score of 12/24. He naps in the afternoon every day. Patient also gets headaches in the morning. Apparently he was approved for sleep study but he failed to get the equipment due to the pandemic. At this point will really or the sleep study in view of his cardiovascular risk factors in his significant symptoms and findings. In addition to that the patient will have to get a pulmonary function study and chest x-ray to further address the shortness of breath. Will provide with a short-acting beta agonist as a trial to see if he gets any relief after using it. The patient is also plan to undergo a colonoscopy. Will have him undergo pulmonary function studies and follow-up with me 1st and then will give him the likely okay to wait for with the colonoscopy. 09/01/2023 the patient is here for a pulm onary follow-up visit. The patient overall has been doing fair. She continues use the oxygen with good effect. He has been on 2 L. He did try the pulse and does not seem to keep his oxygen within the normal ranges. Therefore will go ahead and keep him on the continues oxygen for now. He does have a small trial and is easy for him to carry the oxygen with. The patient currently is sleeping with oxygen. He did have a blood gas done back in beginning of August demonstrating a chronic hypercarbic respiratory failure with a pCO2 of 61 mmHg. He had been on BiPAP but the BiPAP was difficult for him to using it not seem to be effective for him. Therefore I am going to talk to the [employer] company to see about getting him a noninvasive ventilator. The patient does have a poor prognosis with this chronic hypercarbic respiratory failure and has a high risk for admissions to the hospital. Therefore, a noninvasive ventilator would allow him to have better gas exchange improve his prognosis and decrease hospitalizations. Will work with a local [employer] company in order to get him started on a astral noninvasive ventilator this time. The patient will continue to use his respiratory therapy for his obstructive airway disease. He also continues on his diuretics and his volume status is stable at this time. [facility] Medical History (Updated 09/01/23 @ 12:59 by Noman Ridley MD) Asthma-COPD overlap syndrome Morbid obesity Chronic hypoxic respiratory failure Restrictive lung disease Obesity hypoventilation syndrome DARRIAN treated with BiPAP Chronic respiratory failure Acute respiratory failure with hypoxia History of opiate therapy Morbid obesity due to excess calories CKD (chronic kidney disease) stage 3, GFR 30-59 ml/min Liver cirrhosis DARRIAN (obstructive sleep apnea) Chronic kidney disease Congestive heart failure Diabetes Surgical History No pertinent past surgical history Family History Mother Cancer Diabetes Social History Household Members: Spouse Housing: House Do you presently have visiting nurse or other home services: Yes (comes in everyday to administer Methadone) Alcohol intake: current Alcohol intake frequency: 3 or more drinks per day Alcohol type: beer Comment: restraints Patient Tobacco Use Status: Never used Tobacco e-Cigarette/Vaping Use: Never Used Substance Use Type: Heroin service: No Current occupational status: disabled Review of Systems Const Reports daytime sleepiness, Reports difficulty sleeping and Denies weakness ENT Denies dizziness Card Denies chest pain, Denies chest pain with activity, Denies syncope, Denies rapid heart rate, Denies pedal edema, Denies edema, Denies leg edema, Denies lig htheadedness, Denies palpitations, Denies dyspnea, Denies dyspnea on exertion and Denies orthopnea Resp Denies cough, Denies dyspnea and Denies dyspnea on exertion GI Denies hematochezia and Denies change in stool character Musc Reports abnormal gait, Reports myalgias, Reports deformity, Reports arthralgias and Reports tingling Neuro Reports abnormal gait, Denies dizziness, Denies syncope, Reports tingling and Denies weakness Endo Denies palpitations Physical Exam Vital Signs: Last Vital Signs Pulse 67 09/01/23 10:49 Pulse Ox 94 09/01/23 10:49 Oxygen Delivery Method Room Air 09/01/23 10:49 BMI result Body Mass Index 39.0 Const Other: morbidly obese, speech difficult to understand General: cooperative, healthy appearing, comfortable and no acute distress Orientation/consciousness: patient oriented x3 Neck Neck: Yes normal visual inspection Resp Other: increased work of breathing noted however pt denies feeling any sob Auscultation: no crackles, no rales, no rhonchi, no wheezes and diminished lung sounds Cardio Jugular venous distension: no JVD Rate: regular rate Rhythm: regular rhythm Heart sounds: S1 normal heart sound present, S2 normal heart sound present, no murmurs and no rubs Neuro General: patient oriented x3 Extrem Other: tight mildly pitting edema in lower legs bilaterally Psych Appearance: grossly normal Mental Status: mental status grossly normal Speech and movement: Normal speech and movement present Results Reviewed Results Reviewed: RUN: 09/02/2327 PAGE 1 [facility] [address] [place] [id number] Tube And Manifold Builder: Sae Akers M.D. Specimen Inquiry Name: Isael Britton Age/Sex: 63/M : 1960 Unit#: [id number] Attend Dr: Christian Enamorado MD Re08/08/23 Status: DIS IN Location: [facility] 452-1 Disch: 08/11/23 SPEC : [id number] KEVAN: 08/11/23 STATUS: COMP REQ : [id number] RECD: 08/11/[address]: Christian Enamorado MD COMP: 08/11/23 ENTERED: 08/11/[address]: Physician,Unknown ORDERED: ABG - POC Test Result Flag Reference ABG pH 7.36 7.35-7.45 METER #: [id number] additional_comment: Jose gomezbb mlapaht ABG pCO2 61 *H 32-45 mmHg METER #: [id number] additional_comment: Jose mcknight ctrbb mlapaht ABG pO2 90 83-108 mmHg METER #: [id number] additional_comment: Jose mcknight ctrbb mlapaht ABG BE 7.3 mmol/L METER #: [id number] additional_comment: Jose mcknight ctrbb mlapaht ABG HCO3- 34 H 22-26 mmol/L METER #: [id number] additional_comment: Jose gomezbb mlapaht ABG O2 % Sat. 96.0 % METER #: [id number] additional_comment: Jose mcknight ctrbb mlapaht END OF REPORT Assessment & Plan Assessment & Plan (1) Dyspnea: Code(s): R06.00 - Dyspnea, unspecified Qualifiers: Dyspnea type: dyspnea on exertion Qualified Code(s): R06.00 - Dyspnea, unspecified (2) Chronic respiratory failure: Code(s): J96.10 - Chronic respiratory failure, unspecified whether with hypoxia or hypercapnia Qualifiers: Respiratory failure complication: hypoxia Qualified Code(s): J96.11 - Chronic respiratory failure with hypoxia (3) Chronic hypoxic respiratory failure: Code(s): J96.11 - Chronic respiratory failure with hypoxia (4) Congestive heart failure: Code(s): I50.9 - Heart failure, unspecified Qualifiers: Heart failure chronicity: chronic Heart failure type: systolic Qualified Code(s): I50.22 - Chronic systolic (congestive) heart failure (5) Asthma-COPD overlap syndrome: Code(s): J44.89 - Other specified chronic obstructive pulmonary disease Plan failed BIPAP, the patient continues to have hypercarbic respiratory failure with an elevated CO2 due to his underlying obstructive airway disease. The patient carries a poor prognosis and high risk for hospitalizations. He needs to starting noninvasive ventilator to improve his gas exchange improves prognosis and decrease risk of hospitalizations. continue oxygen supplementation with sleep while on NIV Continue with diuresis as tolerated Continue oxygen 2 L continues. The patient does not qualify for a conserving device at this time. follow-up in 4 months Coding Level of Care Code Est Pt Level 4 (12786) Diagnoses Dyspnea on exertion R06.00 Dyspnea type: dyspnea on exertion Chronic respiratory failure with hypoxia J96.11 Respiratory failure complication: hypoxia Chronic hypoxic respiratory failure J96.11 Chronic systolic congestive heart failure I50.22 Heart failure chronicity: chronic Heart failure type: systolic Asthma-COPD overlap syndrome J44.89 Time Spent (min) 18
== END 2023-09-01 11:12 | disposition home or self-care (01) ==
PROVIDERS: PCP Internal Medicine; Visit Provider Hospitalist
DX: J96.11 Chronic respiratory failure with hypoxia (principal); J44.89 Other specified chronic obstructive pulmonary disease; I50.22 Chronic systolic (congestive) heart failure
CPT/HCPCS: 99214

== ENCOUNTER → 2023-09-01 10:28 | Outpatient (BNVA) | payer MEDICAID, SELFPAY | PROVIDERS: PCP Internal Medicine; Visit Provider Hospitalist | DX: J96.11 Chronic respiratory failure with hypoxia (principal); R06.00 Dyspnea, unspecified; I50.22 Chronic systolic (congestive) heart failure; J44.89 Other specified chronic obstructive pulmonary disease | CPT/HCPCS: 99212 ==

== ENCOUNTER 2023-10-03 11:17 | Outpatient (REF) | payer MEDICAID, SELFPAY ==
[2023-10-03 14:08] LABS: B Type Natriuretic Peptide 142 pg/mL (<100)
[2023-10-03 14:44] LABS: Anion Gap 14 (12-20); Blood Urea Nitrogen 26 mg/dL (9-16); Calcium 9.6 mg/dL (8.4-10.2); Carbon Dioxide 30 mmol/L (22-29); Chloride 95 mmol/L (96-108); Estimated Glomerular Filt Rate > 60; Glucose Random 177 mg/dL (60-115); Sodium 135 mmol/L (135-145)
== END 2023-10-03 11:18 | disposition home or self-care (01) ==
LOC: HO.HHCL 11:17
PROVIDERS: Visit Provider Internal Medicine
DX: I50.32 Chronic diastolic (congestive) heart failure (principal)
CPT/HCPCS: 36415; 80048; 83880

== ENCOUNTER 2023-11-12 09:40 | Outpatient (AMB) | payer MEDICAID, SELFPAY ==
--- NOTE | 2023-11-12 10:22 | MHC.OFFVIS ---
Vital Signs 11/12/23 10:23 Height 5 ft 3 in Weight 220 lb 0.341 oz BMI 39.0 BP 140/70 H Blood Pressure Location Rt brachial Position Sitting Pulse 89 Pulse Source Pulse Oximeter Intake Visit Reasons: r/s 09/08/23 4 mos followup Vice President Of News Required: Yes Vice President Of News Name: [id number]/[email or web address]/turkish Accompanied by: Self / Same As Patient Allergies aspirin [ASPIRIN] Allergy (Unknown, Verified 09/01/23 10:50) RASH ibuprofen Allergy (Unknown, Verified 09/01/23 10:50) nausea and vomiting Medication List - Last Reconciled 11/12/23 by Andrea Nina MD blood sugar diagnostic (FreeStyle Lite Strips) As directed blood-glucose meter (FreeStyle [place] Lite kit) As directed CPAP (CPAP Machine/Device) As directed empagliflozin (Jardiance) 25 mg PO DAILY folic acid 1 mg PO DAILY furosemide 20 mg PO DAILY ipratropium-albuterol 20-100 mcg/actuation (Combivent Respimat) 1 puff inhalation QID lancets (TRUEplus Lancets) As directed methadone 55 mg PO DAILY omeprazole 40 mg PO QAM Oxygen Home Use As directed paroxetine HCl 1 tab PO DAILY prazosin 2 mg PO BEDTIME sennosides (Natural Senna Laxative) 17.2 mg (2 x 8.6 mg) PO BEDTIME spironolactone 1 tab PO BEDTIME thiamine HCl (vitamin B1) 100 mg PO DAILY HPI Comments Details: 63-year-old gentleman who is here for follow-up. 06/05/22: He was seen the hospital for asymptomatic sinus bradycardia. He was on carvedilol 3.125 mg twice a day which he was advised to continue given the lack of symptoms. He also had cardiac arrest previously in the setting of hyperkalemia. Overall he has been doing well. He had stroke before and has some speech issues. He is taking his medications regularly. He has been experiencing lightheadedness and dizziness at nighttime. These episodes happen when he stands up and he feels lightheaded. He is describing that these symptoms are quite frequently. Denying any chest pain or shortness of breath otherwise. He is saying he drinks a lot of water. Given his postural dizziness he was advised to stop the hydralazine. 12/11/22: He returns for follow-up. Blood pressure is good 120/70. Previously complained of dizziness and he was advised to stop the hydralazine but it appears he is still taking the hydralazine. He is drinking 3 beers per day. He is saying that he was in the hospital with leg infection and was given antibiotics. He has bilateral lower extremity edema at this point. He is due to sees primary care physician tomorrow and also seeing nephrology next week. He is denying any orthopnea or PND. He is saying he is using his CPAP any sleeping. Blood pressure control is good. 11/12/23: He is here for follow-up. Blood pressure he is mildly elevated. He has visiting nurse who checks his blood pressure daily and he has saying that the blood pressure has been fine. Denying significant shortness of breath or chest pain. He has sleep apnea and wears a mask at night. [facility] Medical History (Updated 09/04/23 @ 05:32 by Yadi Mckeon) Asthma-COPD overlap syndrome Morbid obesity Chronic hypoxic respiratory failure Restrictive lung disease Obesity hypoventilation syndrome DARRIAN treated with BiPAP Chronic respiratory failure Acute respiratory failure with hypoxia History of opiate therapy Morbid obesity due to excess calories CKD (chronic kidney disease) stage 3, GFR 30-59 ml/min Liver cirrhosis DARRIAN (obstructive sleep apnea) Chronic kidney disease Congestive heart failure Diabetes Surgical History No pertinent past surgical history Family History Mother Cancer Diabetes Social History Household Members: Spouse Housing: House Do you presently have visiting nurse or other home services: Yes (comes in everyday to administer Methadone) Alcohol intake: current Alcohol intake frequency: 3 or more drinks per day Alcohol type: beer Comment: restraints Patient Tobacco Use Status: Never used Tobacco e-Cigarette/Vaping Use: Never Used Substance Use Type: Heroin service: No Current occupational status: disabled Review of Systems Const Denies chills, Denies fatigue, Denies fever(s), Denies frequent falls, Denies weakness, Denies weight gain and Denies weight loss ENT Denies dizziness Card Denies chest pain, Denies leg edema, Denies lightheadedness, Denies palpitations, Denies dyspnea and Denies dyspnea on exertion Resp Denies cough, Denies dyspnea and Denies dyspnea on exertion GI Denies hematochezia Musc Denies abnormal gait, Denies muscle weakness, Denies numbness, Denies radiating pain into limb and Denies tingling Neuro Denies abnormal gait, Denies dizziness, Denies frequent falls, Denies numbness, Denies tingling and Denies weakness Endo Denies fatigue and Denies palpitations Physical Exam Vital Signs: Last Vital Signs Pulse 89 11/12/23 10:23 BP 140/70 H 11/12/23 10:23 BMI result Body Mass Index 39.0 GENERAL APPEARANCE: in no acute distress, pleasant. NECK: no carotid bruit, no jugular venous distention. SKIN: no suspicious lesions, warm and dry. HEART: no murmurs, regular rate and rhythm. LUNGS: clear to auscultation bilaterally. ABDOMEN: soft, nontender. EXTREMITIES: 1 to 2+ edema. PERIPHERAL PULSES: equal. NEUROLOGIC: No gross deficits, AAO X 3. Expressive aphasia. Assessment & Plan Assessment & Plan (1) Essential hypertension: Code(s): I10 - Essential (primary) hypertension Category: Medical Plan 63-year-old gentleman who is here for follow-up. He was seen in the hospital in 10/26/2021 when he had asystole /pulseless electrical activity in the setting of kidney injury and hyperkalemia. His bradycardia and conduction issues improved after potassium improved. He has not had any further bradycardic episodes. He closely follows with Nephrology. His blood pressure is mildly elevated with us but his home blood pressure readings have been fine. He is also following with Nephrology in couple of weeks and we can get further blood pressure readings there and adjust blood pressure. He is diabetic. I think we should have fasting lipid panel done on him. I will arrange fasting lipid panel and accordingly we will start him on appropriate statin dose. Follow-up with us in 6 months. Thank you for allowing me to participate in the care of your patient. Please feel free to contact me if you have any questions. Orders: Orders Lipid Panel Today I10 - Essential (primary) hypertension Coding Level of Care Code Est Pt Level 4 (12426) Diagnoses Essential hypertension I10
[2023-11-12 10:23] VITALS: BP 140/70; PULSE 89; BMI 39.0
== END 2023-11-12 10:48 | disposition home or self-care (01) ==
PROVIDERS: PCP Internal Medicine; Referring Provider Internal Medicine; Visit Provider Internal Medicine Cardiovascular Disease
DX: I10 Essential (primary) hypertension (principal)
CPT/HCPCS: 99214

== ENCOUNTER → 2023-11-12 09:40 | Outpatient (BNVA) | payer MEDICAID, SELFPAY | PROVIDERS: PCP Internal Medicine; Visit Provider Internal Medicine Cardiovascular Disease | DX: I10 Essential (primary) hypertension (principal) | CPT/HCPCS: 99212 ==

== ENCOUNTER 2023-12-02 07:35 | Outpatient (REF) | payer MEDICAID, SELFPAY ==
[2023-12-02 08:35] LABS: Cholesterol 236 mg/dL (<200); HDL Cholesterol 71 mg/dL (>40); LDL Cholesterol Calculated 144 mg/dL (<100); Triglycerides 108 mg/dL (<150)
== END 2023-12-02 07:36 | disposition home or self-care (01) ==
LOC: HO.LAB 07:35
PROVIDERS: PCP Internal Medicine; Visit Provider Internal Medicine Cardiovascular Disease
DX: I10 Essential (primary) hypertension (principal)
CPT/HCPCS: 36415; 80061

== ENCOUNTER 2024-02-05 09:53 | Outpatient (AMB) | payer MEDICAID, SELFPAY ==
--- NOTE | 2024-02-05 10:04 | A.OFFVIS_ITS ---
Vital Signs 02/05/24 10:05 Height 5 ft 3 in Weight 222 lb BMI 39.3 Pulse 79 Pulse Source Pulse Oximeter Pulse Oximetry (%) 97 Oxygen Delivery Method Room Air Intake Visit Reasons: Discuss PAP Therapy Mri Manager Required: No Allergies aspirin [ASPIRIN] Allergy (Unknown, Verified 02/05/24 10:06) RASH ibuprofen Allergy (Unknown, Verified 02/05/24 10:06) nausea and vomiting HPI Comments Details: The patient is a 63 year-old gentleman with multiple comorbidities in cardiovascular risk factors who presents with worsening dyspnea on exertion. He has been noticing his breathing has been getting worse now for several months. it is mainly with activity. He denies any shortness of breath while lying flat. The patient has gained weight. He has also noticed lower extremity edema. He has been on diuretics. He does have significant daytime drowsiness. Patient has an Dows score of 12/24. He naps in the afternoon every day. Patient also gets headaches in the morning. Apparently he was approved for sleep study but he failed to get the equipment due to the pandemic. At this point will really or the sleep study in view of his cardiovascular risk factors in his sig nificant symptoms and findings. In addition to that the patient will have to get a pulmonary function study and chest x-ray to further address the shortness of breath. Will provide with a short-acting beta agonist as a trial to see if he gets any relief after using it. The patient is also plan to undergo a colonoscopy. Will have him undergo pulmonary function studies and follow-up with me 1st and then will give him the likely okay to wait for with the colonoscopy. 09/01/2023 the patient is here for a pulmonary follow-up visit. The patient overall has been doing fair. She continues use the oxygen with good effect. He has been on 2 L. He did try the pulse and does not seem to keep his oxygen within the normal ranges. Therefore will go ahead and keep him on the continues oxygen for now. He does have a small trial and is easy for him to carry the oxygen with. The patient currently is sleeping with oxygen. He did have a blood gas done back in beginning of August demonstrating a chronic hypercarbic respiratory failure with a pCO2 of 61 mmHg. He had been on BiPAP but the BiPAP was difficult for him to using it not seem to be effective for him. Therefore I am going to talk to the DME company to see about getting him a noninvasive ventilator. The patient does have a poor prognosis with this chronic hypercarbic respiratory failure and has a high risk [facility]. Therefore, a noninvasive ventilator would allow him to have better gas exchange improve his prognosis and decrease hospitalizations. Will work with a local [employer] company in order to get him started on a astral noninvasive ventilator this time. The patient will continue to use his respiratory therapy for his obstructive airway disease. He also continues on his diuretics and his volume status is stable at this time. 02/05/2024 the patient is here for a pulmonary follow-up visit. The patient is feeling fairly well from a respiratory status. Does feel weak. He does have a wheelchair right now. The patient has been using noninvasive ventilator every night. The astral NIV has been very affecting beneficial for him. He does use it every night. He does have some myoclonus today some difficulty walking. Therefore will recheck his blood gas to make sure that his CO2 is within normal range. The patient also will continue with his nocturnal oxygen. The oxygen has been affecting beneficial. He is to continue every night. Patient also continue with cardioprotective medications. He does have some lower extremity edema and needs to continue diuresis as tolerated. [facility] Medical History (Updated 11/20/23 @ 00:03 by Yadi Mckeon) Opioid use disorder Asthma-COPD overlap syndrome Morbid obesity Chronic hypoxic respiratory failure Restrictive lung disease Obesity hypoventilation syndrome DARRIAN treated with BiPAP Chronic respiratory failure Acute respiratory failure with hypoxia History of opiate therapy Morbid obesity due to excess calories CKD (chronic kidney disease) stage 3, GFR 30-59 ml/min Liver cirrhosis DARRIAN (obstructive sleep apnea) Chronic kidney disease Congestive heart failure Diabetes Surgical History No pertinent past surgical history Family History Mother Cancer Diabetes Social History Household Members: Spouse Housing: House Do you presently have visiting nurse or other home services: Yes (comes in everyday to administer Methadone) Alcohol intake: current Alcohol intake frequency: 3 or more drinks per day Alcohol type: beer Comment: restraints Patient Tobacco Use Status: Never used Tobacco e-Cigarette/Vaping Use: Never Used Substance Use Type: Heroin service: No Current occupational status: disabled Review of Systems Const Reports difficulty sleeping and Denies weakness ENT Denies dizziness Card Denies chest pain, Denies chest pain with activity, Denies syncope, Denies rapid heart rate, Denies pedal edema, Denies edema, Denies leg edema, Denies lightheadedness, Denies palpitations, Denies dyspnea, Denies dyspnea on exertion and Denies orthopnea Resp Denies cough, Denies dyspnea and Denies dyspnea on exertion GI Denies hematochezia and Denies change in stool character Musc Reports abnormal gait, Reports myalgias, Reports deformity, Reports arthralgias and Reports tingling Neuro Reports abnormal gait, Denies dizziness, Denies syncope, Reports tingling and Denies weakness Endo Denies palpitations Physical Exam Vital Signs: Last Vital Signs Pulse 79 02/05/24 10:05 Pulse Ox 97 02/05/24 10:05 Oxygen Delivery Method Room Air 02/05/24 10:05 BMI result Body Mass Index 39.3 Const General: cooperative, healthy appearing, comfortable and no acute distress Orientation/consciousness: patient oriented x3 Neck Neck: Yes normal visual inspection Resp Auscultation: no crackles, no rales, no rhonchi, no wheezes and diminished lung sounds Cardio Jugular venous distension: no JVD Rate: regular rate Rhythm: regular rhythm Heart sounds: S1 normal heart sound present, S2 normal heart sound present, no murmurs and no rubs Neuro General: patient oriented x3 Extrem Other: tight mildly pitting edema in lower legs bilaterally Psych Appearance: grossly normal Mental Status: mental status grossly normal Speech and movement: Normal speech and movement present Assessment & Plan Assessment & Plan (1) Dyspnea: Code(s): R06.00 - Dyspnea, unspecified Category: Medical Qualifiers: Dyspnea type: dyspnea on exertion Qualified Code(s): R06.00 - Dyspnea, unspecified (2) Chronic respiratory failure: Code(s): J96.10 - Chronic respiratory failure, unspecified whether with hypoxia or hypercapnia Category: Medical Qualifiers: Respiratory failure complication: hypoxia Qualified Code(s): J96.11 - Chronic respiratory failure with hypoxia (3) Chronic hypoxic respiratory failure: Code(s): J96.11 - Chronic respiratory failure with hypoxia Category: Medical (4) Congestive heart failure: Code(s): I50.9 - Heart failure, unspecified Category: Medical Qualifiers: Heart failure chronicity: chronic Heart failure type: systolic Qualified Code(s): I50.22 - Chronic systolic (congestive) heart failure (5) Asthma-COPD overlap syndrome: Code(s): J44.89 - Other specified chronic obstructive pulmonary disease Category: Medical Plan continue NIV while sleeping. We will request a bloodgas to adjust settings continue oxygen supplementation with sleep while on NIV Continue with diuresis as tolerated Continue oxygen 2 L continues. bloodwork follow-up in 6 months Orders: Orders Magnesium Today J44.89 - Other specified chronic obstructive pulmonary disease Venous Blood Gas Today J44.89 - Other specified chronic obstructive pulmonary disease Phosphorus Today J44.89 - Other specified chronic obstructive pulmonary disease Basic Metabolic Panel Today J44.89 - Other specified chronic obstructive pulmonary disease Coding Level of Care Code Tele Est Pt Level 4 (80949) Diagnoses Dyspnea on exertion R06.00 Dyspnea type: dyspnea on exertion Chronic respiratory failure with hypoxia J96.11 Respiratory failure complication: hypoxia Chronic hypoxic respiratory failure J96.11 Chronic systolic congestive heart failure I50.22 Heart failure chronicity: chronic Heart failure type: systolic Asthma-COPD overlap syndrome J44.89 Time Spent (min) 16
[2024-02-05 10:05] VITALS: PULSE 79; O2SAT 97; BMI 39.3
== END 2024-02-05 10:20 | disposition home or self-care (01) ==
PROVIDERS: PCP Internal Medicine; Visit Provider Hospitalist
DX: J96.11 Chronic respiratory failure with hypoxia (principal); I50.22 Chronic systolic (congestive) heart failure; J44.89 Other specified chronic obstructive pulmonary disease
CPT/HCPCS: 99214

== ENCOUNTER → 2024-02-05 09:53 | Outpatient (BNVA) | payer MEDICAID, SELFPAY | PROVIDERS: PCP Internal Medicine; Visit Provider Hospitalist | DX: R06.00 Dyspnea, unspecified (principal); J96.11 Chronic respiratory failure with hypoxia; J44.89 Other specified chronic obstructive pulmonary disease; I50.22 Chronic systolic (congestive) heart failure | CPT/HCPCS: 99212 ==

== ENCOUNTER 2024-02-12 10:45 | Outpatient (REF) | payer MEDICAID, SELFPAY ==
[2024-02-12 11:13] LABS: Venous Blood Gas Refer to POC result
[2024-02-12 11:16] LABS: VBG pH 7.32 (7.32-7.43)
[2024-02-12 11:17] LABS: VBG Base Excess 1.3 mmol/L; VBG HCO3 28 mmol/L (22-26); VBG pCO2 53 mmHg; VBG pO2 29 mmHg
[2024-02-12 11:27] LABS: Anion Gap 14 (12-20); Blood Urea Nitrogen 20 mg/dL (9-16); Calcium 9.8 mg/dL (8.4-10.2); Carbon Dioxide 28 mmol/L (22-29); Chloride 101 mmol/L (96-108); Estimated Glomerular Filt Rate 53; Glucose Random 112 mg/dL (60-115); Potassium 5.1 mmol/L (3.3-5.1); Sodium 138 mmol/L (135-145)
[2024-02-12 11:28] LABS: Alanine Aminotransferase 44 U/L (0-40); Albumin Level 4.1 g/dL (3.5-5.0); Alkaline Phosphatase 224 U/L (39-117); Anion Gap 13 (12-20); Aspartate Amino Transferase 47 U/L (5-37); Bilirubin Direct 0.3 mg/dL (0.0-0.5); Bilirubin Total 0.6 mg/dL (0.0-1.0); Blood Urea Nitrogen 20 mg/dL (9-16); Calcium 9.8 mg/dL (8.4-10.2); Carbon Dioxide 28 mmol/L (22-29); Chloride 101 mmol/L (96-108); Estimated Glomerular Filt Rate 55; Gamma Glutamyl Transpeptidase 1196 U/L (11-51); Glucose Random 111 mg/dL (60-115); Magnesium 2.2 mg/dL (1.6-2.6); Phosphorus 3.1 mg/dL (2.7-4.5); Sodium 137 mmol/L (135-145); Total Protein 8.3 g/dL (6.5-8.0)
[2024-02-12 11:48] LABS: HIV AB/AG Nonreactive (Nonreactive); HIV Num 1 0.07 S/CO (0.00-0.99)
[2024-02-16 14:13] LABS: HCV Log PCR <1.18 NOT DETECTED Log IU/mL (NOT DETECTED); HepC Viral Load <15 NOT DETECTED IU/mL (NOT DETECTED)
== END 2024-02-12 10:46 | disposition home or self-care (01) ==
LOC: HO.LAB 10:45
PROVIDERS: Absent Provider Hospitalist; PCP Internal Medicine; Visit Provider Internal Medicine
DX: I50.32 Chronic diastolic (congestive) heart failure (principal); K70.30 Alcoholic cirrhosis of liver without ascites; J44.89 Other specified chronic obstructive pulmonary disease
CPT/HCPCS: 36415; 80048; 80076; 82803; 82977; 83735; 84100; 87389; 87522

== ENCOUNTER 2024-03-05 09:31 | Outpatient (AMB) | payer MEDICAID, SELFPAY ==
[2024-03-05 09:36] VITALS: BP 118/60; PULSE 68; O2SAT 97; BMI 39.0
--- NOTE | 2024-03-05 09:36 | A.OFFVIS_ITS ---
Vital Signs 03/05/24 09:36 Height 5 ft 3 in Weight 220 lb BMI 39.0 BP 118/60 Blood Pressure Location Lt brachial Position Sitting Pulse 68 Pulse Source Pulse Oximeter Pulse Oximetry (%) 97 Oxygen Delivery Method Room Air Intake Visit Reasons: Obstructive sleep apnea Medical Assisting Program Director Required: No Allergies aspirin [ASPIRIN] Allergy (Unknown, Verified 03/05/24 09:39) RASH ibuprofen Allergy (Unknown, Verified 03/05/24 09:39) nausea and vomiting HPI Comments Details: The patient is a 63 year-old gentleman with multiple comorbidities in cardiovascular risk factors who presents with worsening dyspnea on exertion. He has been noticing his breathing has been getting worse now for several months. it is mainly with activity. He denies any shortness of breath while lying flat. The patient has gained weight. He has also noticed lower extremity edema. He has been on diuretics. He does have significant daytime drowsiness. Patient has an [place] score of 12/24. He naps in the afternoon every day. Patient also gets headaches in the morning. Apparently he was approved for sleep study but he failed to get the equipment due to the pandemic. At this point will really or the sleep study in view of his cardiovascular risk factors in his significant symptoms and findings. In addition to that the patient will have to get a pulmonary function study and chest x-ray to further address the shortness of breath. Will provide with a short-acting beta agonist as a trial to see if he gets any relief after using it. The patient is also plan to undergo a colonoscopy. Will have him undergo pulmonary function studies and follow-up with me 1st and then will give him the likely okay to wait for with the colonoscopy. 09/01/2023 the patient is here for a pulmonary follow-up visit. The patient overall has been doing fair. She continues use the oxygen with good effect. He has been on 2 L. He did try the pulse and does not seem to keep his oxygen within the normal ranges. Therefore will go ahead and keep him on the continues oxygen for now. He does have a small trial and is easy for him to carry the oxygen with. The patient currently is sleeping with oxygen. He did have a blood gas done back in beginning of August demonstrating a chronic hypercarbic respiratory failure with a pCO2 of 61 mmHg. He had been on BiPAP but the BiPAP was difficult for him to using it not seem to be effective for him. Therefore I am going to talk to the [employer] company to see about getting him a noninvasive ventilator. The patient does have a poor prognosis with this chronic hypercarbic respiratory failure and has a high risk for admissions to the hospital. Therefore, a noninvasive ventilator would allow him to have better gas exchange improve his prognosis and decrease hospitalizations. Will work with a local [employer] company in order to get him started on a astral noninvasive ventilator this time. The patient will continue to use his respiratory therapy for his obstructive airway disease. He also continues on his diuretics and his volume status is stable at this time. 02/05/2024 the patient is here for a pulmonary follow-up visit. The patient is feeling fairly well from a respiratory status. Does feel weak. He does have a wheelchair right now. The patient has been using noninvasive ventilator every night. The astral NIV has been very affecting beneficial for him. He does use it every night. He does have some myoclonus today some difficulty walking. Therefore will recheck his blood gas to make sure that his CO2 is within normal range. The patient also will continue with his nocturnal oxygen. The oxygen has been affecting beneficial. He is to continue every night. Patient also continue with cardioprotective medications. He does have some lower extremity edema and needs to continue diuresis as tolerated. 03/05/2024 the patient is here for a pulmonary follow-up visit. Overall he is doing okay. He continues use the noninvasive ventilator with good effect. The astral has been very affecting beneficial. He does use it every night. Does use a fullface mask. He is complaining about the oxygen concentrator. They Jaylen coming out warm and is bothering him. For now going to have him stop the oxygen altogether and just continue with the noninvasive ventilator. Will request [employer] to perform an overnight oximetry to see if he still needs the oxygen. He would like to streamline to 1 company. He rather use [employer]. Therefore will have him return the oxygen that he has [facility] this time. Will perform the overnight oximetry. If he does need oxygen will go ahead and request additional therapy. During the visit we did have go for 6 minute walk test the patient did not need oxygen supplementation with activity which is reassuring. We can reassess that further when he comes back in the next several months. The patient is to follow-up in 4-6 months at this time. [facility] Medical History (Updated 11/20/23 @ 00:03 by Yadi Mckeon) Opioid use disorder Asthma-COPD overlap syndrome Morbid obesity Chronic hypoxic respiratory failure Restrictive lung disease Obesity hypoventilation syndrome DARRIAN treated with BiPAP Chronic respiratory failure Acute respiratory failure with hypoxia History of opiate therapy Morbid obesity due to excess calories CKD (chronic kidney disease) stage 3, GFR 30-59 ml/min Liver cirrhosis DARRIAN (obstructive sleep apnea) Chronic kidney disease Congestive heart failure Diabetes Surgical History No pertinent past surgical history Family History Mother Cancer Diabetes Social History Household Members: Spouse Housing: House Do you presently have visiting nurse or other home services: Yes (comes in everyday to administer Methadone) Alcohol intake: current Alcohol intake frequency: 3 or more drinks per day Alcohol type: beer Comment: restraints Patient Tobacco Use Status: Never used Tobacco e-Cigarette/Vaping Use: Never Used Substance Use Type: Heroin service: No Current occupational status: disabled Review of Systems Const Reports difficulty sleeping and Denies weakness ENT Denies dizziness Card Denies chest pain, Denies chest pain with activity, Denies syncope, Denies rapid heart rate, Denies pedal edema, Denies edema, Denies leg edema, Denies ligh theadedness, Denies palpitations, Denies dyspnea, Denies dyspnea on exertion and Denies orthopnea Resp Denies cough, Denies dyspnea and Denies dyspnea on exertion GI Denies hematochezia and Denies change in stool character Musc Reports abnormal gait, Reports myalgias, Reports deformity, Reports arthralgias and Reports tingling Neuro Reports abnormal gait, Denies dizziness, Denies syncope, Reports tingling and Denies weakness Endo Denies palpitations Physical Exam Vital Signs: Last Vital Signs Pulse 68 03/05/24 09:36 BP 118/60 03/05/24 09:36 Pulse Ox 97 03/05/24 09:36 Oxygen Delivery Method Room Air 03/05/24 09:36 BMI result Body Mass Index 39.0 Const General: cooperative, healthy appearing, comfortable and no acute distress Orientation/consciousness: patient oriented x3 Neck Neck: Yes normal visual inspection Chest Chest palpation & inspection: normal inspection of the chest Resp Auscultation: no crackles, no rales, no rhonchi, no wheezes and diminished lung sounds Cardio Jugular venous distension: no JVD Rate: regular rate Rhythm: regular rhythm Heart sounds: S1 normal heart sound present, S2 normal heart sound present, no murmurs and no rubs Neuro General: patient oriented x3 Extrem Other: tight mildly pitting edema in lower legs bilaterally Psych Appearance: grossly normal Mental Status: mental status grossly normal Speech and movement: Normal speech and movement present Office Procedures 6 Minute Walk Time:: 09:50 SPO2 % at rest: 97 Pulse at rest: 67 SPO2 % during excercise: 92 Pulse during excercise: 86 SPO2 % after excercise: 94 Pulse after excercise: 76 Distance in yards walked: 150 Gregory Score: 2 Performance Observations:: Isael walked on level ground with the assistance of a cane, he walked on room air for the entire walk. He maintained his SPO2 92-94% w ith no need for supplemental O2. [id number] - 6 Minute Walk Assessment & Plan Assessment & Plan (1) Dyspnea: Code(s): R06.00 - Dyspnea, unspecified Category: Medical Qualifiers: Dyspnea type: dyspnea on exertion Qualified Code(s): R06.00 - Dyspnea, unspecified (2) Asthma-COPD overlap syndrome: Code(s): J44.89 - Other specified chronic obstructive pulmonary disease Category: Medical Plan continue NIV while sleeping. We will request a bloodgas to adjust settings overnight oximetry on NIV on RA Continue with diuresis as tolerated No need for portable oxygen at this time follow-up in 6 months Orders: Orders Overnight Pulse Oximetry 03/05/24 J44.89 - Other specified chronic obstructive pulmonary disease AMB 6 minute walk 03/05/24 J44.89 - Other specified chronic obstructive pulmonary disease Coding Level of Care Code Est Pt Level 4 (14219) Diagnoses Dyspnea on exertion R06.00 Dyspnea type: dyspnea on exertion Asthma-COPD overlap syndrome J44.89 CPT Codes Coding ([id number]) Time Spent (min) 17
[2024-03-05 10:01] VITALS: PULSE 67; O2SAT 97
== END 2024-03-05 10:34 | disposition home or self-care (01) ==
PROVIDERS: PCP Internal Medicine; Visit Provider Hospitalist
DX: J44.89 Other specified chronic obstructive pulmonary disease (principal)
CPT/HCPCS: 94618; 99214

== ENCOUNTER → 2024-03-05 09:31 | Outpatient (BNVA) | payer MEDICAID, SELFPAY | PROVIDERS: PCP Internal Medicine; Visit Provider Hospitalist | DX: J44.89 Other specified chronic obstructive pulmonary disease (principal); R06.00 Dyspnea, unspecified | CPT/HCPCS: 94618; 99212 ==

== ENCOUNTER 2024-05-28 12:28 | Outpatient (REF) | payer MEDICAID, SELFPAY ==
[2024-05-28 14:29] LABS: Hematocrit 42.5 % (42.0-52.0); Hemoglobin 13.4 g/dl (14.0-18.0); Mean Corpuscular HGB Conc 31.5 g/dl (31.0-36.0); Mean Corpuscular Hemoglobin 29.3 pg (27.0-33.0); Mean Corpuscular Volume 92.8 fL (80.0-98.0); Platelet Count 179 X10*3/uL (160-400); Red Blood Count 4.58 X10*6/uL (4.60-5.80); Red Cell Distribution Width 15.6 % (11.0-16.0); White Blood Count 9.6 X10*3/uL (4.8-10.8)
[2024-05-28 15:08] LABS: Erythrocyte Sedimentation Rate 28 MM/HR (0-15)
[2024-05-28 15:32] LABS: Folate 18.3 ng/mL (> or = 4.0); Vitamin B12 438 pg/mL (200-900)
[2024-05-28 19:46] LABS: Alanine Aminotransferase 37 U/L (0-40); Alkaline Phosphatase 148 U/L (39-117); Anion Gap 15 (12-20); Aspartate Amino Transferase 36 U/L (5-37); Bilirubin Direct 0.3 mg/dL (0.0-0.5); Bilirubin Total 0.7 mg/dL (0.0-1.0); Blood Urea Nitrogen 19 mg/dL (9-16); C Reactive Protein 3.34 mg/dL (< or = 0.50); Calcium 9.5 mg/dL (8.4-10.2); Carbon Dioxide 27 mmol/L (22-29); Chloride 103 mmol/L (96-108); Cholesterol 262 mg/dL (<200); Estimated Glomerular Filt Rate 47; Glucose Random 160 mg/dL (60-115); HDL Cholesterol 86 mg/dL (>40); Iron 46 mcg/dL (45-160); LDL Cholesterol Calculated 141 mg/dL (<100); Magnesium 2.1 mg/dL (1.6-2.6); Percent Iron Saturation 16 % (15-50); Potassium 4.8 mmol/L (3.3-5.1); Sodium 140 mmol/L (135-145); Total Iron Binding Capacity 291 mcg/dL (228-428); Total Protein 8.4 g/dL (6.5-8.0); Triglycerides 175 mg/dL (<150); Unsaturated Iron Binding 245 ug/dL
[2024-05-28 19:51] LABS: Gamma Glutamyl Transpeptidase 1005 U/L (11-51); Lipase 24 U/L (8-78)
[2024-05-28 20:01] LABS: Ferritin 175 ng/mL (20-250); TSH reflex Free T4 1.21 uIU/mL (0.32-4.0)
[2024-05-31 02:49] LABS: Ceruloplasmin 28 mg/dL (14-30)
[2024-05-31 13:19] LABS: Alpha Fetoprotein 4.3 ng/mL (<6.1)
[2024-05-31 20:12] LABS: Transglutaminase IgA 2.2 U/mL
[2024-05-31 20:23] LABS: HCV Log PCR <1.18 NOT DETECTED Log IU/mL (NOT DETECTED); HepC Viral Load <15 NOT DETECTED IU/mL (NOT DETECTED)
[2024-06-01 11:13] LABS: Mitochondrial Antibodies NEGATIVE (NEGATIVE)
[2024-06-02 13:38] LABS: Liver Kidney Microsomal Ab <=20.0 U (<=20.0)
[2024-06-04 13:38] LABS: Smooth Muscle Antibody <20 U (<20); Vitamin D 25-OH, D2 4 ng/mL; Vitamin D 25-OH, D3 9 ng/mL; Vitamin D 25-OH, Total 13 ng/mL (30-100)
[2024-06-07 14:33] LABS: FIB-ALT 24 U/L (9-46); FIB-Alpha-2-Macroglobulin 165 mg/dL (106-279); FIB-Apolipoprotein A1 243 mg/dL (94-176); FIB-GGT 805 U/L (3-70); FIB-Haptoglobin 154 mg/dL (43-212); FIB-Total Bilirubin 0.6 mg/dL (0.2-1.2); Liver Fibrosis Score 0.28; Liver Fibrosis Stage F1; Nec Inflam Act Grade A0; Reference ID 5267121
== END 2024-05-28 12:29 | disposition home or self-care (01) ==
LOC: HO.LAB 12:28
PROVIDERS: PCP Internal Medicine; Visit Provider Nurse Practitioner Family
DX: R79.89 Other specified abnormal findings of blood chemistry (principal); R74.8 Abnormal levels of other serum enzymes; E55.9 Vitamin D deficiency, unspecified; I25.10 Atherosclerotic heart disease of native coronary artery without angina pectoris; R10.9 Unspecified abdominal pain; R19.7 Diarrhea, unspecified; Z86.19 Personal history of other infectious and parasitic diseases; D64.9 Anemia, unspecified; K76.0 Fatty (change of) liver, not elsewhere classified; N18.9 Chronic kidney disease, unspecified; R74.01 Elevation of levels of liver transaminase levels; K58.9 Irritable bowel syndrome, unspecified; K21.9 Gastro-esophageal reflux disease without esophagitis; K59.00 Constipation, unspecified
CPT/HCPCS: 36415; 80053; 80061; 81596; 82105; 82248; 82306; 82390; 82607; 82728; 82746; 82977; 83540; 83690; 83735; 84443; 85027; 85652; 86015; 86140; 86364; 86376; 86381; 87522; 99212

== ENCOUNTER 2024-05-28 12:28 | Outpatient (AMB) | payer MEDICAID, SELFPAY ==
[2024-05-28 13:05] VITALS: BP 102/64; PULSE 66; O2SAT 88; BMI 41.7
--- NOTE | 2024-05-28 13:05 | MHC.OFFVIS ---
Vital Signs 05/28/24 13:05 Height 5 ft 3 in Weight 235 lb 7.259 oz BMI 41.7 BP 102/64 Blood Pressure Location Lt brachial Position Sitting Pulse 66 Pulse Source Pulse Oximeter Pulse Oximetry (%) 88 L Oxygen Delivery Method Room Air Intake Visit Reasons: Cirrhosis of liver Intake Note: ESTABLISHED PATIENT Isael presents in office today for a scheduled FUV to re-establish Meds and Allergies reviewed? Y No recent or relevant surgeries? N Any significant concerns or new changes? Abd distention and swelling. Epigastric Pharmacy verified? [facility] Pharmacy Supervisor International Reservations Required: Yes Supervisor International Reservations Services: Supervisor International Reservations Present Supervisor International Reservations Name: Isael [id number] Information Interpreted: non-clinical & clinical Accompanied by: Family/Other Allergies aspirin [ASPIRIN] Allergy (Unknown, Verified 05/28/24 13:06) RASH ibuprofen Allergy (Unknown, Verified 05/28/24 13:06) nausea and vomiting HPI HPI Cirrhosis of liver: Details: LAST VISIT GERD (gastroesophageal reflux disease) Acid reflux symptoms suppressed by omeprazole. Discussed with patient avoiding dietary triggers and late night snacking. Importance of staying upright for minimal 3 hours after meals. Patient is diabetic. His H pylori testing was negative. Patient should go for upper endoscopy. IBS (irritable bowel syndrome) Occasional postprandial bloating now subsided that he started taking Senokot. Patient is moving his bowels much better. Discussed with him avoiding dietary triggers. Patient denies any abdominal pain or discomfort. Abdominal bloating Postprandial abdominal bloating better. Patient is moving his bowels better in his symptoms are improving. He also is using simethicone on as needed basis with food. Continue avoiding dietary triggers, continue taking Senokot Constipation Patient reports that he is moving his bowels better now that he started taking Senokot 2 tablets. Patient can continue the same. He will be due to go for colorectal screening. We will need to get the Cardiology and pulmonology risk stratification before the procedures. Patient denies melena, hematochezia, unintentional weight loss or ribbon like stools. SOBOE (shortness of breath on exertion) Reports to have increased shortness of breath on exertion. Patient does report that he is taking all his medications. List shows furosemide 40 mg and spironolactone. Unknown dose of spironolactone. Patient was encouraged to bring his medications to the next visit. Congestive heart failure History of congestive heart failure, seen by grain mill products inspector at [facility]. Patient would like to see different grain mill products inspector. I will send him to cardiology group at [facility]. Patient reports to have worsening shortness of breath and bilateral lower extremity edema. Patient will need a risk stratification before going for colonoscopy and upper endoscopy. I will see him in 2 months, patient was encouraged to call me sooner if his symptoms will get worse or if he will experience any additional GI concerning symptoms. He is agreeable to this plan and verbalizes understanding of instructions. He was given the opportunity to ask questions and all questions answered. ? Thank you for allowing me to participate in his care Plan Orders Referrals Cardiology Referral Z01.810 Pulmonary Medicine Referral R06.02 Medications Refilled methylcellulose (laxative) (Citrucel) take it with full glass of water 500 mg PO DAILY 30 tabs 2RF K59.00 sennosides (Natural Senna Laxative) 17.2 mg (2 x 8.6 mg) PO BEDTIME 60 tabs 1RF constipation K59.00 simethicone (Gas Relief (simethicone)) 180 mg PO BID PRN 60 caps 1RF abdominal distention TODAY'S VISIT Patient is here today as he was sent by his PCP for evaluation of cirrhosis of his liver. Patient was previously seen by me last visit in July of 2021. Patient has never followed up in this office. Patient was referred to Cardiology and pulmonology which he follows up every few months. Currently patient has been drinking alcohol every day. Last drink was yesterday. Patient states that he drank 1 L of Bacardi rum all by himself. Today he presents complaining of abdominal bloating and distention. Reports abdominal pain, describes herself abdomen hurts and is hard to touch. Patient denies any nausea or vomiting. Denies any melena, hematochezia, unintentional weight loss or ribbon like stools. Patient reports that he gained weight in the past few months. Last workup was Laboratory Tests 07/29/18 02/12/24 09:25 11:07 GGT 1196 H AST 47 H ALT 44 H Alkaline Phosphatase 224 H Liver Fibrosis Stage F1-F2 Patient had CT scan back in August of 2023 that showed cirrhotic liver no ascites, mesenteric congestion, no hernias in abdominal wall. Patient reports that he is taking senna, however he is not moving his bowels well. Patient denies any dizziness, occasional shortness of breath he feels like his abdomen is so large that he can not even bend over to tie his shoes. Patient thinks that he has hernia in his abdomen just above his umbilical area. Denies any pain or tenderness. States that his whole abdomen feels very hard. Patient denies any jaundice, pruritus [facility] Medical History (Updated 05/28/24 @ 14:27 by Taryn Jerez, [facility]) Chronic idiopathic constipation GERD (gastroesophageal reflux disease) Opioid use disorder Asthma-COPD overlap syndrome Morbid obesity Chronic hypoxic respiratory failure Restrictive lung disease Obesity hypoventilation syndrome DARRIAN treated with BiPAP Chronic respiratory failure Acute respiratory failure with hypoxia History of opiate therapy Morbid obesity due to excess calories CKD (chronic kidney disease) stage 3, GFR 30-59 ml/min Liver cirrhosis DARRIAN (obstructive sleep apnea) Chronic kidney disease Congestive heart failure Diabetes Surgical History No pertinent past surgical history Family History Mother Cancer Diabetes Social History Household Members: Spouse Housing: House Do you presently have visiting nurse or other home services: Yes (comes in everyday to administer Methadone) Alcohol intake: current Alcohol intake frequency: 3 or more drinks per day Alcohol type: beer Comment: restraints Patient Tobacco Use Status: Never used Tobacco e-Cigarette/Vaping Use: Never Used Substance Use Type: Heroin service: No Current occupational status: disabled Review of Systems Const Denies weight gain and Denies weight loss ENT Reports no additional complaints, Denies dysphagia and Denies odynophagia Card Reports no additional complaints Resp Reports no additional complaints GI Reports abdominal pain, Denies belching, Denies melena, Reports bloating, Denies change in bowel habits, Reports constipation, Denies dysphagia, Denies excessive flatus, Reports early satiety, Denies dyspepsia, Reports heartburn, Denies diarrhea, Denies loose stools, Denies nausea, Denies odynophagia and Denies vomiting Reports no additional complaints Musc Reports no additional complaints Neuro Reports no additional complaints Psych Reports no additional complaints Endo Reports no additional complaints Physical Exam Const General: no acute distress Nutritional Appearance: obese Orientation/consciousness: patient oriented x3 Resp Effort & Inspection: normal respiratory effort, able to speak in complete sentences, no tracheal deviation and symmetric chest movement Auscultation: clear to auscultation bilaterally Cardio Rate: regular rate GI Inspection: Yes normal to inspection and Yes distended Palpation (GI): Soft to palpation, Firmness to palpation present (GI), nontender and No hepatosplenomegaly present Auscultation: normal bowel sounds General: Yes no CVA tenderness Back/Spine/Pelvis Back: no CVA tenderness Skin General skin exam: elasticity normal, turgor normal and dry skin Neuro General: patient oriented x3 Psych Appearance: grossly normal Mental Status: mental status grossly normal Results Reviewed Results Reviewed: CT SCAN OF ABDOMEN AND PELVIS 08/08/2023 FINDINGS: QUALITY OF STUDY/CONTRAST BOLUS: Satisfactory. PULMONARY ARTERIES: There are no filling defects in the main, lobar, or segmental pulmonary arteries to suggest pulmonary embolism. The central pulmonary arteries are normal. THORACIC AORTA:There is a normal left-sided three-vessel aortic arch. No dissection. The aorta is normal in caliber. LUNG: Low lung volume bilaterally with mild vascular congestion but no evidence of malignancy is consolidation or pleural effusion. MEDIASTINUM: No evidence of septal bowing or right heart strain. The cardiomediastinal structures are unremarkable. There is no pericardial effusion. No pathologically enlarged mediastinal lymph nodes. CHEST WALL/AXILLA: There is bilateral gynecomastia LIVER, GALLBLADDER, AND BILIARY TREE: There is low-attenuation liver was cirrhotic architecture. There is no obvious pulmonary hypertension. There is caudate lobe hypertrophy. No evidence of ascites. There is mild cholelithiasis but no evidence of cholecystitis no evidence of choledocholithiasis. PANCREAS: Normal size. No definite mass, surrounding fluid, or inflammatory changes. There is mild haziness of mesentery adjacent to the pancreatic body possibly due to sclerosing mesenteritis more than pancreatitis. Correlate clinically SPLEEN: Normal size. No focal lesion. No perisplenic ascites. ADRENAL GLANDS: Normal in size; no mass. KIDNEYS AND URETERS: The kidneys are normal in size, shape, and attenuation. No hydronephrosis or hydroureter. No renal calculi. GASTROINTESTINAL TRACT: No evidence of free fluid or free air within the abdomen. The stomach is non-distended there is linear metallic object in the body of stomach questionably foreign body versus metallic clip, correlate clinically. Non-distended loops of small bowel are identified. No evidence of colonic wall thickening or surrounding inflammatory changes. The appendix is unremarkable; no fat stranding is noted in the expected location of the appendix. ABDOMINAL WALL: Subcutaneous varicosity present. LYMPHOVASCULAR STRUCTURES: There are scattered mesenteric lymph nodes such as elongated lymph node seen in the retroperitoneum adjacent to the right kidney, measured 1.4 cm. There is no aortic dissection or dilatation. BLADDER: Urinary bladder is nondistended with Watkins catheter present PELVIC VISCERA: Unremarkable. OSSEOUS STRUCTURES: No acute or suspicious osseous abnormality. Mild multilevel degenerative changes of the visualized spine. CT/CT abdomen pelvis w IV con IMPRESSION: 1. No evidence of pulmonary embolism. No evidence of aortic dissection. 2. Low lung volume bilaterally with mild vascular congestion. 3. Cirrhotic liver with caudate lobe hypertrophy. 4. Cholelithiasis without evidence of cholecystitis. 5. Mild haziness of mesentery adjacent to the pancreatic body possibly due to sclerosing mesenteritis more than pancreatitis, correlate clinically. 6. Scattered mesenteric lymph nodes. VTE: Negative. Assessment & Plan Assessment & Plan (1) Alcohol use disorder, severe, dependence: Code(s): F10.20 - Alcohol dependence, uncomplicated Category: Medical (2) Polysubstance abuse: Code(s): F19.10 - Other psychoactive substance abuse, uncomplicated Category: Medical (3) Liver cirrhosis: Code(s): K74.60 - Unspecified cirrhosis of liver Category: Medical Qualifiers: Hepatic cirrhosis type: alcoholic cirrhosis Ascites presence: without ascites Qualified Code(s): K70.30 - Alcoholic cirrhosis of liver without ascites (4) GERD (gastroesophageal reflux disease): Code(s): K21.9 - Gastro-esophageal reflux disease without esophagitis Category: Medical Qualifiers: Esophagitis presence: esophagitis presence not specified Qualified Code(s): K21.9 - Gastro-esophageal reflux disease without esophagitis (5) Chronic idiopathic constipation: Code(s): K59.04 - Chronic idiopathic constipation Category: Medical (6) Postprandial abdominal bloating: Code(s): R14.0 - Abdominal distension (gaseous) Plan CT scan to check for any abdominal hernia. On exam unable to distinguish if there is a hernia or not as patient's abdomen is very tight and large. No tenderness on exam. Decreased bowel sounds. Script for lactulose to be taken twice a day continue with senna. Patient is on methadone and is more constipated than usual. Workup for any autoimmune disorders that might be causing transaminitis although patient does admit that he has been drinking every day. Last night he had a hole L of Bacardi rum. Will check hep C viral load. Patient admits to using drugs last year, however patient denies injecting. Patient states that he was snorting heroin. Long discussion with patient and his significant other about stopping alcohol and following up with provider at addiction medicine. He used to see Shania Martino and has not followed up with her for some time. He will follow-up in our office in 4 weeks. Patient was encouraged to go to ED if he will become short of breath, increased edema in his feet, chest pain, upper or lower GI bleed symptoms for becomes jaundice. Both patient and his significant other are agreeable to plan of care and verbalizes understanding of instructions. They were given the opportunity to ask questions and all questions answered. Thank you for allowing me to participate in his care Orders: Orders Ceruloplasmin Today R79.89 - Other specified abnormal findings of blood chemistry Hepatitis C Viral Load Today Z86.19 - Personal history of other infectious and parasitic diseases Smooth Muscle Antibody Today R79.89 - Other specified abnormal findings of blood chemistry IRON PROFILE Today D64.9 - Anemia, unspecified Liver Fibrosis Pnl Today K76.0 - Fatty (change of) liver, not elsewhere classified Erythrocyte Sedimentation Rate Today R79.89 - Other specified abnormal findings of blood chemistry Liver Kidney Microsomal Ab Today Z86.19 - Personal history of other infectious and parasitic diseases Mitochondrial Antibody Today R79.89 - Other specified abnormal findings of blood chemistry Ferritin Today R74.8 - Abnormal levels of other serum enzymes Vitamin D 25-OH (D2 and D3) Today E55.9 - Vitamin D deficiency, unspecified Magnesium Today N18.9 - Chronic kidney disease, unspecified Lipid Panel Today I25.10 - Atherosclerotic heart disease of [place] coronary artery without angina pectoris Liver Panel Today R74.01 - Elevation of levels of liver transaminase levels Alpha Fetoprotein Today R79.89 - Other specified abnormal findings of blood chemistry C Reactive Protein Today K58.9 - Irritable bowel syndrome, unspecified Transglutaminase IgA Today R10.9 - Unspecified abdominal pain Complete Blood Count no Diff Today K21.9 - Gastro-esophageal reflux disease without esophagitis Comprehensive Met. Panel Today K21.9 - Gastro-esophageal reflux disease without esophagitis Lipase Today R10.9 - Unspecified abdominal pain TSH reflex Free T4 Today K59.00 - Constipation, unspecified Vitamin B12 and Folate Today R19.7 - Diarrhea, unspecified Gamma Glutamyl Transpeptidase Today R74.8 - Abnormal levels of other serum enzymes CT abdomen pelvis w IV con Today K43.9 - Ventral hernia without obstruction or gangrene, K74.60 - Unspecified cirrhosis of liver, M62.08 - Separation of muscle (nontraumatic), other site, R10.9 - Unspecified abdominal pain Medications: New lactulose 20 grams (30 mL) PO BID 473 mL 2RF K59.09 - Other constipation Coding Level of Care Code Est Pt Level 5 (14933) Complex EM visit Add On G2211 Diagnoses Alcohol use disorder, severe, dependence F10.20 Polysubstance abuse F19.10 Alcoholic cirrhosis of liver without ascites K70.30 Hepatic cirrhosis type: alcoholic cirrhosis Ascites presence: without ascites Gastroesophageal reflux disease, unspecified whether esophagitis present K21.9 Esophagitis presence: esophagitis presence not specified Chronic idiopathic constipation K59.04 Postprandial abdominal bloating R14.0 Time Spent (min) 45 Comment 30 minutes spent with patient and additional 15 minutes spent reviewing his records
== END 2024-05-28 13:46 | disposition home or self-care (01) ==
PROVIDERS: PCP Internal Medicine; Visit Provider Nurse Practitioner Family
DX: F10.20 Alcohol dependence, uncomplicated (principal); F19.10 Other psychoactive substance abuse, uncomplicated; K70.30 Alcoholic cirrhosis of liver without ascites; K21.9 Gastro-esophageal reflux disease without esophagitis; K59.04 Chronic idiopathic constipation; R14.0 Abdominal distension (gaseous)
CPT/HCPCS: 99215

== ENCOUNTER 2024-06-10 13:05 | Outpatient (REF) | payer MEDICAID, SELFPAY ==
--- NOTE | ~2024-06-10 | CT_ITS ---
CLINICAL HISTORY: R10.9 - Unspecified abdominal pain CT abdomen and pelvis with IV contrast. COMPARISON: CT abdomen and pelvis dated 08/08/23 at 13:45 EST FINDINGS: Cardiomegaly. Aortic annular calcifications. Hepatic steatosis. Nodular hepatic contour. Cholelithiasis present. Noncontrast appearance of the spleen, pancreas and adrenal glands are unremarkable. Small splenule present. No renal or ureteral calculus. No hydronephrosis. Oral contrast has progressed into the proximal transverse colon. No bowel obstruction. Normal appendix. No mesenteric or retroperitoneal lymphadenopathy. Mild aortoiliac atherosclerotic vascular calcifications. Normal appearance of the urinary bladder. No inguinal lymphadenopathy. Small fat containing umbilical hernia. Mild spondylosis. No acute fracture or suspicious bone lesion. IMPRESSION: 1. No cause for patient's symptoms identified. No evidence of appendicitis. No bowel obstruction. No evidence of renal obstruction. 2. Cirrhotic hepatic morphology with hepatic steatosis. This document has been electronically signed by: Sergo Ortiz MD on 06/10/2024 17:35:02
[2024-06-10] MEDS: Barium Sulfate Oral (Mocha) 450 ML ORAL.SUSP 900 ML PO (16:53)
== END 2024-06-10 13:06 | disposition home or self-care (01) ==
LOC: HO.CT 13:05
PROVIDERS: PCP Internal Medicine; Visit Provider Nurse Practitioner Family
DX: R10.9 Unspecified abdominal pain (principal); K43.9 Ventral hernia without obstruction or gangrene; M62.08 Separation of muscle (nontraumatic), other site
CPT/HCPCS: 74176

== ENCOUNTER → 2024-06-10 13:11 | Outpatient (BNV) | payer MEDICAID, SELFPAY | PROVIDERS: PCP Internal Medicine; Visit Provider Radiology Diagnostic Radiology | DX: K74.60 Unspecified cirrhosis of liver (principal) | CPT/HCPCS: 74176 ==

== ENCOUNTER 2024-07-16 21:20 | Inpatient (IN) | payer MEDICAID, SELFPAY ==
--- NOTE | 2024-07-16 | ECG_ITS ---
Test Reason : CHEST PAIN Blood Pressure : */* mmHG Vent. Rate : 72 BPM Atrial Rate : * BPM P-R Int : * ms QRS Dur : 82 ms QT Int : 388 ms P-R-T Axes : * -14 5 degrees QTcB Int : 424 ms Normal sinus rhythm Abnormal ECG When compared to the previous EKG of No significant changes seen Referred By: Generic ED Physician Electronically Signed By: Andrea Nina
--- NOTE | ~2024-07-16 | XR_ITS ---
CLINICAL HISTORY: cp sob 1 view chest x-ray Comparison: CR/SR - XR CHEST 1V - 08/08/23 12:45 EST Findings: No consolidation or effusion. Heart size is normal. No acute fracture. IMPRESSION: 1. No acute findings. This document has been electronically signed by: Chris Ordoñez MD on 07/16/2024 22:49:33
--- NOTE | ~2024-07-16 | US_ITS ---
CLINICAL HISTORY: ascites check Exam: Ultrasound of the abdomen limited. Comparison: Noncontrast CT of the abdomen and pelvis June 10, 2024. Findings: Limited abdominal ultrasound was performed for the evaluation of ascites. Images were obtained of the midline and within all 4 quadrants. No free fluid identified. Impression: No ascites. This document has been electronically signed by: Wei Anders MD on 07/17/2024 09:21:31
[2024-07-16 21:31] VITALS: BP 148/85; PULSE 76; O2SAT 98
[2024-07-16 21:33] VITALS: BP 174/63; PULSE 72; RESP 20; TEMP 36.8; O2SAT 96; BMI 39.0
[2024-07-16 21:49] LABS: MANUAL DIFF FLAG NO
--- NOTE | 2024-07-16 21:49 | ED_ITS ---
HPI - Chest Pain General Chief Complaint: Chest Pain Stated Complaint: CHEST PAIN, DIFFICULT BREATHING, HARD ABD Time Seen by Provider: 07/16/24 21:49 Source: patient Mode of arrival: EMS Limitations: no limitations History of Present Illness ED Provider: HPI narrative: Patient's history of asthma-COPD overlap syndrome, sleep apnea using CPAP at night, obesity, hypertension, alcohol use disorder uses oxygen 2 L on ambulation as needed comes here as been feeling increased shortness a breath for last 3 days unable to speak full sentences patient has ran out of his spironolactone for more than 3 months drinking alcohol 4 or 5 drinks a day does have a dry cough no chest pain or palpitation does have significant leg swelling and abdominal distention saturating 96% at room air Related Data Home Medications ?Medication ?Instructions ?Recorded ?Confirmed thiamine HCl (vitamin B1) 100 mg 100 mg PO DAILY 06/18/21 11/12/23 tablet blood sugar diagnostic (FreeStyle #10 ea 12/12/21 12/11/22 Lite Strips) blood-glucose meter (FreeStyle #1 ea 12/12/21 12/11/22 [place] Lite kit) furosemide 20 mg tablet 20 mg PO DAILY 12/12/21 11/12/23 lancets 33 gauge (TRUEplus Lancets) #100 ea 12/12/21 12/11/22 methadone 10 mg/mL oral concentrate 55 mg PO DAILY 02/20/22 11/12/23 paroxetine HCl 20 mg tablet 1 tab PO DAILY 04/11/22 11/12/23 spironolactone 25 mg tablet 1 tab PO BEDTIME 04/11/22 11/12/23 Oxygen Home Use 04/22/22 12/11/22 CPAP (CPAP Machine/Device) 04/25/23 empagliflozin 25 mg tablet 25 mg PO DAILY 08/08/23 11/12/23 (Jardiance) folic acid 1 mg tablet 1 mg PO DAILY 08/08/23 11/12/23 ipratropium 20 mcg-albuterol 100 1 puff inhalation QID 08/08/23 11/12/23 mcg/actuation mist for inhalation (Combivent Respimat) prazosin 2 mg capsule 2 mg PO BEDTIME 08/08/23 11/12/23 losartan 25 mg tablet 25 mg PO QAM 05/28/24 Previous Rx's ?Medication ?Instructions ?Recorded sennosides 8.6 mg tablet (Natural 17.2 mg (2 x 8.6 mg) PO BEDTIME 08/14/22 Senna Laxative) constipation #180 tabs omeprazole 40 mg capsule,delayed 40 mg PO QAM #90 caps 08/20/23 release lactulose 10 gram/15 mL oral 20 g (30 mL) PO BID #473 mL 05/28/24 solution cholecalciferol (vitamin D3) 50 100 mcg (2 x 50 mcg (2,000 unit)) 06/04/24 mcg (2,000 unit) capsule PO DAILY #180 caps Allergies Allergy/AdvReac Type Severity Reaction Status Date / Time aspirin [ASPIRIN] Allergy Unknown RASH Verified 07/16/24 21:39 ibuprofen Allergy Unknown nausea and Verified 07/16/24 21:39 vomiting Review of Systems 2 Review of Systems: Yes all other systems are reviewed and are negative [facility] Past Medical History Medical History Chronic idiopathic constipation GERD (gastroesophageal reflux disease) Opioid use disorder Asthma-COPD overlap syndrome Morbid obesity Chronic hypoxic respiratory failure Restrictive lung disease Obesity hypoventilation syndrome DARRIAN treated with BiPAP Chronic respiratory failure Acute respiratory failure with hypoxia History of opiate therapy Morbid obesity due to excess calories CKD (chronic kidney disease) stage 3, GFR 30-59 ml/min Liver cirrhosis DARRIAN (obstructive sleep apnea) Chronic kidney disease Congestive heart failure Diabetes Surgical History No pertinent past surgical history Family History Family History Mother Cancer Diabetes Social History Social History Household Members: Spouse Housing: House Do you presently have visiting nurse or other home services: Yes (comes in everyday to administer Methadone) Alcohol intake: current Alcohol intake frequency: 3 or more drinks per day Alcohol type: hard liquor Comment: restraints Patient Tobacco Use Status: Never used Tobacco Smoked in Last 30 Days: No e-Cigarette/Vaping Use: Never Used Use of substances other than those prescribed or required for medical reasons: No Substance Use Type: Heroin Advance Directives: No Advance Directives Information Provided: No service: No Current occupational status: disabled Physical Exam 2 Vital Signs: Vital Signs: Last Vital Signs Temp 97.5 F 07/17/24 06:46 Pulse 79 07/17/24 06:46 Resp 16 07/17/24 06:46 BP 174/83 H 07/17/24 06:46 Pulse Ox 95 07/17/24 06:46 O2 Del Method Room Air 07/17/24 06:46 O2 Flow Rate 4 07/16/24 23:37 Oxygen Flow Rate 4 07/16/24 21:33 BMI result Body Mass Index 39.0 Appearance: Alert. Oriented X3. No acute distress. Eyes: No pallor or icterus ENT: Pharynx normal. Oral Mucosa moist Neck: Normal inspection. Neck supple. CVS: Normal heart rate and rhythm. Pulses normal. Respiratory: No respiratory distress. Equal air entry bilateral, bilateral wheezing Abdomen: Distended negative fluid thrill and nontender. Bowel sounds are present, no mass palpable, no CVA tenderness Skin: Skin warm and dry. Normal skin color. Normal skin turgor. Extremities: 2 + lower extremity edema. No calf tenderness Neuro: Oriented X 3. No motor deficit. Medications Administered Generic Name Dose Route Start Last Admin Trade Name Freq PRN Reason Stop Dose Admin Methylprednisolone Sodium Succinate 40 mg 07/17/24 07:00 07/17/24 07:23 Methylprednisolone Sod Succ 40 Mg/Ml Vial IVPUSH 40 mg Q12H THAI Administration Sodium Chloride 3 ml 07/17/24 08:00 07/17/24 07:23 0.9 % Sodium Chloride Flush 3 Ml Syringe IVFLUSH 3 ml QSHIFT THAI Administration Discontinued Medications Generic Name Dose Route Start Last Admin Trade Name Freq PRN Reason Stop Dose Admin Albuterol Sulfate 2.5 mg/ 0 mg 07/16/24 22:02 07/16/24 22:04 Albuterol/Ipratropium 3 ml INHALE 07/16/24 22:03 5 dose ONCE ONE Administration Furosemide 40 mg 07/16/24 22:06 07/16/24 22:14 Furosemide 40 Mg/4 Ml Vial IVPUSH 07/16/24 22:07 40 mg ONCE ONE Administration Protocol Methylprednisolone Sodium Succinate 125 mg 07/17/24 00:11 07/17/24 00:25 Methylprednisolone Sod Succ 125 Mg/2 Ml Vial IVPUSH 07/17/24 00:12 125 mg ONCE ONE Administration Medical Decision Making Medical Decision Making [facility] Narrative: Patient's history of asthma-COPD overlap syndrome, sleep apnea using CPAP at night, obesity, hypertension, alcohol use disorder uses oxygen 2 L on ambulation as needed comes here as been feeling increased shortness a breath for last 3 days unable to speak full sentences patient has ran out of his spironolactone for more than 3 months drinking alcohol 4 or 5 drinks a day does have a dry cough no chest pain or palpitation does have significant leg swelling and abdominal distention saturating 96% at room air workup showed respiratory hypoxia with hypercapnia BiPAP was placed IV diuresis was given will admit to the hospitalist service for fluid overload and COPD/asthma overlap syndrome Differential Diagnosis Differential Diagnoses: The differential diagnosis associated with the presentation includes As above Admission/Observation Consideration of admission/observation: Escalation of care including admission/observation considered Consult Healthcare Provider Management of the patient was discussed with: Hospitalist Lab Data [facility] Lab Attestation statement: I reviewed the patient's lab results. 07/17/24 06:09 07/17/24 06:09 Labs: Lab Results 07/16/24 07/16/24 07/16/24 Range/Units 21:43 21:47 23:41 WBC 7.6 (4.8-10.8) X10*3/uL RBC 4.09 L (4.60-5.80) X10*6/uL Hgb 12.2 L (14.0-18.0) g/dl Hct 38.3 L (42.0-52.0) % MCV 93.6 (80.0-98.0) fL MCH 29.8 (27.0-33.0) pg MCHC 31.9 (31.0-36.0) g/dl RDW 15.8 (11.0-16.0) % Plt Count 151 L (160-400) X10*3/uL MPV 9.4 (9.4-12.4) fL Immature Gran % (Auto) 0.3 (0.0-0.4) % Neut % (Auto) 56.6 (45-73) % Lymph % (Auto) 30.9 (20-40) % [place] % (Auto) 7.5 (2-11) % Eos % (Auto) 3.7 (0-4) % Baso % (Auto) 1.0 (0-2) % Lymph # (Auto) 2.4 (1.2-4.9) X10*3/uL [place] # (Auto) 0.6 (0.1-1.2) X10*3/uL Eos # (Auto) 0.3 (0.0-0.4) X10*3/uL Baso # (Auto) 0.1 (0.0-0.2) X10*3/uL Abs Immat Gran (auto) 0.02 (0.00-0.03) X10*3/uL Absolute Neuts (auto) 4.3 (2.0-8.3) x10*3/uL Absolute Nucleated RBC 0.000 (0.0-0.012) X10*3/uL Nucleated RBC % (auto) 0.0 (0.0-0.2) /100WBC PT 10.6 L (10.9-12.4) SEC INR 0.9 (0.9-1.1) VBG pH 7.28 L (7.32-7.43) VBG pCO2 61 mmHg VBG pO2 47 mmHg VBG HCO3 29 H (22-26) mmol/L VBG O2 Saturation 66.0 % VBG Base Excess 1.4 mmol/L Sodium 143 (135-145) mmol/L Potassium 4.7 (3.3-5.1) mmol/L Chloride 107 (96-108) mmol/L Carbon Dioxide 23 (22-29) mmol/L Anion Gap 18 (12-20) BUN 19 H (9-16) mg/dL Creatinine 1.31 (0.5-1.4) mg/dL Estim Creat Clear Calc 72.4 Estimated GFR 55 Random Glucose 171 H (60-115) mg/dL Calcium 8.9 D (8.4-10.2) mg/dL Total Bilirubin 0.4 (0.0-1.0) mg/dL AST 57 H (5-37) U/L ALT 41 H (0-40) U/L Alkaline Phosphatase 160 H (39-117) U/L Troponin I High Sens 14.9 D 20.1 (<3.5-35.0) ng/L B-Natriuretic Peptide 325 H (<100) pg/mL Total Protein 8.3 H (6.5-8.0) g/dL Albumin 4.0 (3.5-5.0) g/dL Ethyl Alcohol 316 H* mg/dL Influenza Type A (PCR) NEGATIVE (Negative) Influenza Type B (PCR) NEGATIVE (Negative) RSV RNA Qual (PCR) NEGATIVE (Negative) SARS-CoV-2 RNA (RT-PCR) NEGATIVE (Negative) Independent Interpretation I performed an independent interpretation of an: EKG and Plain X-Ray Interpretation: Normal sinus rhythm heart rate 72 beats per minute normal intervals normal axis no acute ST-T changes no acute ischemia Radiology Impression Discussion of test interpretation with radiology: I have reviewed the radiologist's reading. Radiologist Impression: [id number] [place] [phone] XRay Report Signed Patient: Isael Britton MR#: [id number] : 1960 Acct:[id number] Age/Sex: 64 / M ADM Date: 07/16/24 Loc: .ED Attending Dr: Ordering Physician: Varghese Franco MD Date of Service: 07/16/24 Procedure(s): XR chest 1V Accession Number(s): [id number] cc: Physician,Unknown ; Varghese Franco MD~ CLINICAL HISTORY: cp sob 1 view chest x-ray Comparison: CR/SR - XR CHEST 1V - 08/08/23 12:45 EST Findings: No consolidation or effusion. Heart size is normal. No acute fracture. IMPRESSION: 1. No acute findings. This document has been electronically signed by: Chris Ordoñez MD on 07/16/2024 22:49:33 Critical Care Time Critical Care Time Critical Care Time: Yes Total Critical Care Time: 65 Attestation: The patient was critically ill with a high probability of imminent or life threatening deterioration. I spent greater than 70???minutes of discontinuous time evaluating the patient,delivering critical care at the bedside, discussing and evaluating pertinent data with consultants. Critical care time does not include time spent performing separately billable procedures or teaching. Total time spent performing critical care was ?65??minutes. Discharge Plan Discharge Clinical Impression: Asthma-COPD overlap syndrome, Morbid obesity, Alcohol use disorder, severe, dependence, Acute on chronic hypoxic respiratory failure Patient Disposition: Admitted As Inpatient
[2024-07-16 21:51] LABS: Basophils Absolute Auto 0.1 X10*3/uL (0.0-0.2); Eosinophils Absolute Auto 0.3 X10*3/uL (0.0-0.4); Eosinophils Percent Auto 3.7 % (0-4); Hematocrit 38.3 % (42.0-52.0); Hemoglobin 12.2 g/dl (14.0-18.0); Imm Gran Abs Auto 0.02 X10*3/uL (0.00-0.03); Imm Gran Pct Auto 0.3 % (0.0-0.4); Lymphocytes Absolute Auto 2.4 X10*3/uL (1.2-4.9); Lymphocytes Percent Auto 30.9 % (20-40); Mean Corpuscular HGB Conc 31.9 g/dl (31.0-36.0); Mean Corpuscular Hemoglobin 29.8 pg (27.0-33.0); Mean Corpuscular Volume 93.6 fL (80.0-98.0); Mean Platelet Volume 9.4 fL (9.4-12.4); Monocytes Absolute Auto 0.6 X10*3/uL (0.1-1.2); Monocytes Percent Auto 7.5 % (2-11); Neutrophils Absolute Auto 4.3 x10*3/uL (2.0-8.3); Neutrophils Percent Auto 56.6 % (45-73); Platelet Count 151 X10*3/uL (160-400); Red Blood Count 4.09 X10*6/uL (4.60-5.80); Red Cell Distribution Width 15.8 % (11.0-16.0); White Blood Count 7.6 X10*3/uL (4.8-10.8)
[2024-07-16 21:53] LABS: VBG Base Excess 1.4 mmol/L; VBG HCO3 29 mmol/L (22-26); VBG pCO2 61 mmHg; VBG pH 7.28 (7.32-7.43); VBG pO2 47 mmHg
[2024-07-16 21:55] LABS: Venous Blood Gas Refer to POC result
[2024-07-16 21:56] LABS: INTERNATIONAL NORM RATIO 0.9 (0.9-1.1); Prothrombin Time 10.6 SEC (10.9-12.4)
[2024-07-16] MEDS: Albuterol Sulfate 2.5 MG, Albuterol/Iprat 2.5/0.5MG 3 ML 3 ML INHALE (22:04)
[2024-07-16 22:07] VITALS: PULSE 70; RESP 21; O2SAT 97
[2024-07-16 22:14] VITALS: BP 165/65
[2024-07-16] MEDS: Furosemide 40 MG/4 ML VIAL IVPUSH (22:14)
[2024-07-16 22:15] LABS: Alanine Aminotransferase 41 U/L (0-40); Alkaline Phosphatase 160 U/L (39-117); Anion Gap 18 (12-20); Aspartate Amino Transferase 57 U/L (5-37); Bilirubin Total 0.4 mg/dL (0.0-1.0); Blood Urea Nitrogen 19 mg/dL (9-16); Calcium 8.9 mg/dL (8.4-10.2); Carbon Dioxide 23 mmol/L (22-29); Chloride 107 mmol/L (96-108); Creatinine Clr Calc Pharmacy 72.4; Estimated Glomerular Filt Rate 55; Ethanol 316 mg/dL; Glucose Random 171 mg/dL (60-115); Potassium 4.7 mmol/L (3.3-5.1); Sodium 143 mmol/L (135-145); Total Protein 8.3 g/dL (6.5-8.0)
[2024-07-16 22:23] LABS: Troponin-I High Sensitivity 14.9 ng/L (<3.5-35.0)
[2024-07-16 22:52] LABS: B Type Natriuretic Peptide 325 pg/mL (<100)
--- NOTE | 2024-07-16 22:59 | PC.NURSE ---
this rn assisted pt with use of urinal pt output 950ml of urine
[2024-07-16 23:37] VITALS: BP 131/87; PULSE 65; RESP 16; TEMP 36.9; O2SAT 96
[2024-07-17] VITALS (16 sets, daily range): BP systolic 124–174; BP diastolic 61–94; PULSE 52–79; RESP 14–21; TEMP 36.3–37; O2SAT 94–99; BMI 39.0
[2024-07-17 00:13] LABS: Troponin-I High Sensitivity 20.1 ng/L (<3.5-35.0)
[2024-07-17 00:23] LABS: Influenza A PCR NEGATIVE (Negative); Influenza B PCR NEGATIVE (Negative); Resp Syncy Virus RNA Qual PCR NEGATIVE (Negative); SARS COV2 PCR INHOUSE NEGATIVE (Negative)
[2024-07-17] MEDS: methylPREDNISolone Sod Succ 125 MG/2 ML VIAL IVPUSH (00:25)
--- NOTE | 2024-07-17 01:00 | PC.NURSE ---
this rn changed pt bed linens after urinary incontinence. pt also used bedside urinal output of 900ml of urine rt at bedside to place pt on bipap
--- NOTE | 2024-07-17 02:52 | PM.IMHP ---
History of Present Illness Date of Service: 07/17/24 Attending physician on admission: Samir Garcia Chief Complaint: Bilateral leg edema and Patient is a 64 year old obese male with history of alcoholic liver cirrhosis, GERD, hypertension, type 2 diabetes mellitus, asthma-COPD overlap syndrome and history of cardiac arrest who presents to the emergency room with vague symptoms. He reported having shortness of breath, vague chest pain and bilateral leg edema. When I saw him, his main complain was swelling of his legs and denied other complains. Initial blood work done revealed an elevated serum alcohol level of 316 mg/dl and mildly elevated liver enzymes and BNP. He received IV Lasix and when I saw him he was feeling better and did not appear to be in any distress. Admission was requested for further care. Review of Systems Review of Systems: Yes all other systems are reviewed and are negative [facility] Medical History Chronic idiopathic constipation GERD (gastroesophageal reflux disease) Opioid use disorder Asthma-COPD overlap syndrome Morbid obesity Chronic hypoxic respiratory failure Restrictive lung disease Obesity hypoventilation syndrome DARRIAN treated with BiPAP Chronic respiratory failure Acute respiratory failure with hypoxia History of opiate therapy Morbid obesity due to excess calories CKD (chronic kidney disease) stage 3, GFR 30-59 ml/min Liver cirrhosis DARRIAN (obstructive sleep apnea) Chronic kidney disease Congestive heart failure Diabetes Family History Mother Cancer Diabetes Surgical History No pertinent past surgical history Social History Household Members: Spouse Housing: House Do you presently have visiting nurse or other home services: Yes (comes in everyday to administer Methadone) Alcohol intake: current Alcohol intake frequency: 3 or more drinks per day Alcohol type: hard liquor Comment: restraints Patient Tobacco Use Status: Never used Tobacco Smoked in Last 30 Days: No e-Cigarette/Vaping Use: Never Used Use of substances other than those prescribed or required for medical reasons: No Substance Use Type: Heroin Advance Directives: No Advance Directives Information Provided: No service: No Current occupational status: disabled Meds Allergies Allergy/AdvReac Type Severity Reaction Status Date / Time aspirin [ASPIRIN] Allergy Unknown RASH Verified 07/16/24 21:39 ibuprofen Allergy Unknown nausea and Verified 07/16/24 21:39 vomiting Home Medications ?Medication ?Instructions ?Recorded ?Confirmed ?Last Taken ?Type thiamine HCl (vitamin B1) 100 mg 100 mg PO DAILY 06/18/21 11/12/23 08/08/23 History tablet blood sugar diagnostic (FreeStyle #10 ea 12/12/21 12/11/22 11/22/22 History Lite Strips) blood-glucose meter (FreeStyle #1 ea 12/12/21 12/11/22 11/22/22 History [place] Lite kit) furosemide 20 mg tablet 20 mg PO DAILY 12/12/21 11/12/23 08/08/23 History lancets 33 gauge (TRUEplus Lancets) #100 ea 12/12/21 12/11/22 11/22/22 History methadone 10 mg/mL oral concentrate 55 mg PO DAILY 02/20/22 11/12/23 Unknown History paroxetine HCl 20 mg tablet 1 tab PO DAILY 04/11/22 11/12/23 08/08/23 History spironolactone 25 mg tablet 1 tab PO BEDTIME 04/11/22 11/12/23 11/21/22 History Oxygen Home Use 04/22/22 12/11/22 11/22/22 History CPAP (CPAP Machine/Device) 04/25/23 Unknown History empagliflozin 25 mg tablet 25 mg PO DAILY 08/08/23 11/12/23 08/08/23 History (Jardiance) folic acid 1 mg tablet 1 mg PO DAILY 08/08/23 11/12/23 08/08/23 History ipratropium 20 mcg-albuterol 100 1 puff inhalation QID 08/08/23 11/12/23 08/08/23 History mcg/actuation mist for inhalation (Combivent Respimat) prazosin 2 mg capsule 2 mg PO BEDTIME 08/08/23 11/12/23 Unknown History losartan 25 mg tablet 25 mg PO QAM 05/28/24 Unknown History Physical Exam Vital Signs and Narrative: Vital Signs: Last Vital Signs Temp 98.5 F 07/17/24 01:10 Pulse 66 07/17/24 01:10 Resp 16 07/17/24 01:10 BP 166/94 H 07/17/24 01:10 Pulse Ox 98 07/17/24 01:10 O2 Del Method CPAP 07/17/24 01:10 O2 Flow Rate 4 07/16/24 23:37 Oxygen Flow Rate 4 07/16/24 21:33 BMI result Body Mass Index 39.0 General: Obese male in bed. Awake and alert. In no obvious respiratory distress. Psychiatric: Pleasant, well kempt, cooperative with normal thought process, speech, cognition and affect. HEENT: Normocephalic, atraumatic. No pallor or jaundice. Moist oral mucus membranes. Neck: Supple. No JVD Lungs: Clear to auscultation bilaterally. No rales, rhonchi or wheezes Heart: RRR. Normal s1/s2. No murmurs, rubs or gallops. No peripheral edema. Abdomen: Scaphoid, Soft, non-tender. Normoactive bowel sounds. No visceromegaly. Genitourinary: Deferred Back/Spine/Pelvis: Deferred Skin: Warm, dry, well perfused. Normal turgor. No mottling. Normal capillary refill (< 2 seconds). Neurologic: Awake and alert. Intact speech & cognition. Normal gait & balance. CN II-XII grossly normal. Extremities: Normal muscle bulk, tone and power. No obvious deformities. No peripheral edema. Good peripheral pulses. Results Labs 07/16/24 21:43 07/16/24 21:43 Labs: Laboratory Results - last 24 hr 07/16/24 07/16/24 07/16/24 21:43 21:47 23:41 MCV 93.6 MCH 29.8 MCHC 31.9 RDW 15.8 Plt Count 151 L MPV 9.4 Immature Gran % (Auto) 0.3 Neut % (Auto) 56.6 Lymph % (Auto) 30.9 [place] % (Auto) 7.5 Eos % (Auto) 3.7 Baso % (Auto) 1.0 Lymph # (Auto) 2.4 [place] # (Auto) 0.6 Eos # (Auto) 0.3 Baso # (Auto) 0.1 Abs Immat Gran (auto) 0.02 Absolute Neuts (auto) 4.3 Absolute Nucleated RBC 0.000 Nucleated RBC % (auto) 0.0 PT 10.6 L INR 0.9 VBG pH 7.28 L VBG pCO2 61 VBG pO2 47 VBG HCO3 29 H VBG O2 Saturation 66.0 VBG Base Excess 1.4 Anion Gap 18 Estim Creat Clear Calc 72.4 Estimated GFR 55 Random Glucose 171 H Calcium 8.9 D Total Bilirubin 0.4 AST 57 H ALT 41 H Alkaline Phosphatase 160 H Troponin I High Sens 14.9 D 20.1 B-Natriuretic Peptide 325 H Total Protein 8.3 H Albumin 4.0 Ethyl Alcohol 316 H* Influenza Type A (PCR) NEGATIVE Influenza Type B (PCR) NEGATIVE RSV RNA Qual (PCR) NEGATIVE SARS-CoV-2 RNA (RT-PCR) NEGATIVE Assessment and Plan (1) Bilateral leg edema: Status: Acute (2) Alcoholic hepatitis: Qualifiers: Ascites presence: with ascites Qualified Code(s): K70.11 - Alcoholic hepatitis with ascites Status: Acute (3) Alcohol use disorder, severe, dependence: Status: Acute (4) Asthma-COPD overlap syndrome: Status: Acute (5) GERD (gastroesophageal reflux disease): Qualifiers: Esophagitis presence: esophagitis presence not specified Qualified Code(s): K21.9 - Gastro-esophageal reflux disease without esophagitis Status: Acute (6) Morbid obesity: Status: Acute (7) Liver cirrhosis: Qualifiers: Hepatic cirrhosis type: alcoholic cirrhosis Ascites presence: without ascites Qualified Code(s): K70.30 - Alcoholic cirrhosis of liver without ascites Status: Acute (8) Shortness of breath: Status: Acute Plan 64 year old obese male with history of alcoholic liver cirrhosis, GERD, hypertension, type 2 diabetes mellitus, asthma-COPD overlap syndrome and history of cardiac arrest here with: 1. Asthma-COPD with mild exacerbation - he reported left sided chest pain and shortness of breath when he was first seen in the ED - however, when I saw him, he had received steroids and nebulizer treatments and was feeling better - continue scheduled steroids and PRN updrafts 2. Bilateral leg edema - appears mild and likely due to cirrhosis - received IV Lasix which I will continue for now - monitor I/O's, daily weights and electrolytes 3. Alcoholic liver cirrhosis - decompensated with ascites - unfortunately continues to drink beer - encourage sobriety 4. Asthma-COPD with mild exacerbation - he reported left sided chest pain and shortness of breath when he was first seen in the ED - however, when I saw him, he had received steroids and nebulizer treatments and was feeling better - continue scheduled steroids and PRN updrafts 4. Morbid obesity - BMI of 39.1 - encourage weight loss Total time managing care of this patient today: 55 minutes. Quality Stroke Does the patient have a stroke diagnosis?: No VTE Prior VTE?: No VTE Risk Level:: Medical - moderate - high VTE Device Contraindication: N/A - Device Ordered VTE Drug Contraindication: N/A - Med Ordered
[2024-07-17 06:21] LABS: MANUAL DIFF FLAG NO
[2024-07-17 06:24] LABS: Basophils Percent Auto 0.7 % (0-2); Eosinophils Percent Auto 0.2 % (0-4); Hematocrit 37.7 % (42.0-52.0); Hemoglobin 11.9 g/dl (14.0-18.0); Imm Gran Abs Auto 0.02 X10*3/uL (0.00-0.03); Imm Gran Pct Auto 0.5 % (0.0-0.4); Lymphocytes Absolute Auto 0.4 X10*3/uL (1.2-4.9); Lymphocytes Percent Auto 8.8 % (20-40); Mean Corpuscular HGB Conc 31.6 g/dl (31.0-36.0); Mean Corpuscular Hemoglobin 29.3 pg (27.0-33.0); Mean Corpuscular Volume 92.9 fL (80.0-98.0); Mean Platelet Volume 9.1 fL (9.4-12.4); Monocytes Percent Auto 0.7 % (2-11); Neutrophils Percent Auto 89.1 % (45-73); Platelet Count 125 X10*3/uL (160-400); Red Blood Count 4.06 X10*6/uL (4.60-5.80); Red Cell Distribution Width 15.9 % (11.0-16.0); White Blood Count 4.4 X10*3/uL (4.8-10.8)
[2024-07-17 06:39] LABS: Alanine Aminotransferase 36 U/L (0-40); Albumin Level 3.9 g/dL (3.5-5.0); Alkaline Phosphatase 156 U/L (39-117); Anion Gap 17 (12-20); Aspartate Amino Transferase 48 U/L (5-37); Bilirubin Total 0.5 mg/dL (0.0-1.0); Blood Urea Nitrogen 19 mg/dL (9-16); Carbon Dioxide 25 mmol/L (22-29); Chloride 107 mmol/L (96-108); Creatinine Clr Calc Pharmacy 84.7; Estimated Glomerular Filt Rate > 60; Glucose Random 206 mg/dL (60-115); Magnesium 1.8 mg/dL (1.6-2.6); Potassium 4.8 mmol/L (3.3-5.1); Sodium 144 mmol/L (135-145); Total Protein 8.2 g/dL (6.5-8.0)
[2024-07-17] MEDS: methylPREDNISolone Sod Succ 40 MG/ML VIAL IVPUSH ×2 (07:23→19:56)
[2024-07-17] MEDS: 0.9 % Sodium Chloride Flush 3 ML SYRINGE IVFLUSH ×3 (07:23→20:01)
[2024-07-17] MEDS: Albuterol/Iprat 2.5/0.5MG 3 ML AMPUL.NEB INHALE ×3 (08:11→19:58)
--- OUTSIDE RECORDS SUMMARY | 2024-07-17 08:35 | XMS_ITS | Encounter Summary ---
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 Name Role Phone Nelly Bach MD Primary Care Provider + Encounter Details Date Type Department Care Team (Latest Contact Info) Description 06/24/2024 Travel Social History Tobacco Use Types Packs/Day Years Used Date Smoking Tobacco: Never Smokeless Tobacco: Never Alcohol Use Standard Drinks/Week Comments Not Currently 0 (1 standard drink = 0.6 oz pur e alcohol) oca Alcohol Answer Date Recorded Frequency of Alcohol Consumption Not on file 08/29/2023 Average Number of Drinks Not on file 024 Frequency of Binge Drinking Not on file 08/08 Score 0 08/29/2023 Housing Stability Answer Date Recorded What is your housing situation today? I have cabrera hobbs 04/02/[address] you li ve. Do you have problems with any of the following? None of the above 04/02/2023 Food Insecurity Answer Date Recorded Within the past 12 months, y ou worried that your food would run out before you got money to buy more: Never True 04/02/2023 Within the past 12 months,th e food you bought just didn't last and you didn't have enough money to get more: Never True Transportation Answer Date Recorded In the past 12 months, has l ack of transportation kept you from medical appts, meetings, work or from getting things needed for daily living? No 08/29/2023 Utilities Answer Date Recorded In the past 12 months, has t he electric, gas, oil or water company threatened to shut off services in your home? No 04/02/2023 Depression Answer Date Recorded Patient Health Questionnaire-2 Score 0 08/29/2023 Sex and Gender Information Value Date Recorded Sex Assigned at Male 04/08/2022 10:15 AM EDT Legal Sex Male 10:15 AM EDT Gender Identity Male 04/08/2022 10:15 AM EDT Sexual Orientation Straight 04/08/2022 10 :15 AM EDT documented as of this encounter Plan of Treatment Upcoming Encounters Date Type Department Care Team (Late st Contact Info) Description 08/27/2024 11:30 AM EDT Office Visit [facility] [address] [place] [address] Nelly Bach MD [address] [place] [address] documented as of this encounter Visit Diagnoses Not on filedocumented in this encounter Care Teams [employer] Pumping [employer] Operator Relationship Specialty Start Date End Date Nelly Bach MD [address] [place] [address] PCP - General Family Medicine 06/19/18 documented as of this encounter
--- OUTSIDE RECORDS SUMMARY | 2024-07-17 08:35 | XMS_ITS | Clinical Summary ---
Author Organization [employer] Address [address] [place] [address] Care Team Providers Care Pressure Dispatcher Name Role Phone Nelly Bach MD Primary Care Provider + Allergies Active Allergy Reactions Criticality Noted Date Comments Aspirin Rash Low 08/23/2022 Ibuprofen Nausea Only,Nausea And Vomiting,Other 10/18/2014 Medications Misc. Devices (Pulse Oximeter For Finger) misc -Use daily and as needed to check O2 sats 01/31/20 22 Active methadone (Dolophine) 10 MG/5ML solution Take 55 mg by mouth Once per day. [facility] Methadone clinic Active naloxone (Narcan) 4 mg/0.1 mL nasal spray Administer 0.1 mL into affected nostril(s). 01/11/20 22 Active omeprazole (PriLOSEC) [address] capsule Take 1 capsule by mouth. Every day before a meal Active Blood Glucose Monitoring Suppl (FreeStyle Lite) device Inject under the skin if needed. Check blood sugar 2 times every day Active Blood Pressure Monitoring (Omron 3 Series BP Monitor) device USE TO CHECK BLOOD PRESSURE DAILY 01/31/20 22 Active PARoxetine (Paxil) 20 MG tabletIndicatio ns:Moderate episode of recurrent major depressive disorder (CMS/HCC) TAKE 1 TABLET BY MOUTH EVERY MORNING 30 tablet 01/04/20 23 Active Diclofenac Sodium 1 % gel Apply 2 grams if needed in the morning and at bedtime for pain 100 g 1 03/04/20 23 Active thiamine (Vitamin B-1) 100 MG tabletIndicatio ns:Alcoholism (CMS/HCC) TAKE 1 TABLET BY MOUTH EVERY MORNING 90 tablet 3 07/16/19 24 Active folic acid (Folvite) 1 MG tabletIndicatio ns:Alcoholism ([facility]) TAKE 1 TABLET BY MOUTH EVERY MORNING 90 tablet 3 07/16/19 24 Active sennosides (Senna Lax) 8.6 MG tablet Take 2 tablets (17.2 mg) by mouth Once per day. 180 tablet 3 10/03/19 24 025 Active losartan (Cozaar) 25 MG tablet Take 1 tablet (25 mg) by mouth Once per day. 90 tablet 3 01/02/20 24 025 Active prazosin (Minipress) 2 MG capsule Take 1 capsule (2 mg) by mouth at bedtime. 90 capsule 01/02/20 24 025 Active Jardiance 25 MGIndications:C ontrolled type 2 diabetes mellitus with stage 3 chronic kidney disease, without long-term current use of insulin ([facility]) TAKE 1 TABLET BY MOUTH EVERY MORNING 30 tablet 11 03/15/20 24 Active TRUEplus Lancets 33G misc TEST BLOOD SUGAR TWICE DAILY 100 each 5 03/15/20 24 Active FREESTYLE LITE test stripIndication s:Controlled type 2 diabetes mellitus with stage 3 chronic kidney disease, without long-term current use of insulin ([facility]) TEST BLOOD SUGAR TWICE DAILY IN THE MORNING AND AT BEDTIME 150 strip 5 03/15/20 24 Active furosemide (Lasix) 20 MG tabletIndicatio ns:Chronic systolic congestive heart failure ([facility]) TAKE 1 TABLET BY MOUTH EVERY MORNING 90 tablet 1 04/13/20 24 Active ipratropium-alb uterol (Combivent Respimat) 20-100 MCG/ACT inhalerIndicati ons:Chronic obstructive pulmonary disease, unspecified COPD type ([facility]) INHALE 1 PUFF BY MOUTH FOUR TIMES DAILY DURING WAKING HOURS 4 g 06/23/19 25 Active spironolactone (Aldactone) 25 MG tablet TAKE 1 TABLET BY MOUTH AT BEDTIME 90 tablet 1 07/05/19 25 Active lactulose (Chronulac) 10 GM/15ML solution TAKE 30 ML BY MOUTH TWICE DAILY 05/28/20 24 Active rosuvastatin (Crestor) 40 MG tablet Take 40 mg by mouth at bedtime. 04/12/20 24 Active spironolactone (Aldactone) 25 MG tablet TAKE 1 TABLET BY MOUTH AT BEDTIME 90 tablet 1 12/18/19 24 025 Discontinued ipratropium-alb uterol (Combivent Respimat) 20-100 MCG/ACT inhalerIndicati ons:Chronic obstructive pulmonary disease, unspecified COPD type (CMS/HCC) INHALE 1 PUFF FOUR TIMES DAILY DURING WAKING HOURS 4 g 02/03/20 24 025 Discontinued Active Problems Patient Care Coordination No te Formatting of this note migh t be different from the original. C3/CM Nevaeh Aguirre RN Problem Noted Date Diagnosed Date Gait disturbance 03/04/2023 Assessment & Plan (03/04/2023 2:33 PM EDT): Mostly limited by O2 dependence and most likely cirrhosis Will have PT evaluate and recommend ambulatory device COPD exacerbation 12/12/2022 Assessment & Plan (12/12/2022 1:05 PM EDT): Resolved s/p PRD continue combivent inhaler Pt is nonsmoker counseled avoid toxic inhaled substances Will do PFTs next appointment Continue supplemental O2 to keep O2 sat 91-93% will consider referral to pulmonology for further evaluation (used to be seen by Dr. Ridley) Moderate episode of recurrent major depressive d isorder 12/05/2022 Exercise counseling 08/28/2022 Right elbow pain 08/28/2022 Assessment & Plan (08/28/2022 12:41 PM EDT): s/p fracture healing with mild deformity pt will use tylenol or diclofenac gel PRN pain FU with me in 3 months and will evaluate referal to OT if needed Mixed stress and urge urinary incontinence 08/28 Assessment & Plan (08/28/2022 12:40 PM EDT): Residual from CVA exacerbated by use of dieuretices for CHF recommended use of pullups when going out. Use bedside commode, I will write a prescription Alcoholism 05/24/2022 Assessment & Plan (08/29/2023 11:57 AM EDT): Pt agreed to be referred to [facility] program Counseled to cut down alcohol slowly to avoid withdrawal Continue folic acid + D1 Assessment & Plan (12/12/2022 1:02 PM EDT): recent relapse last month that led to CHF his last COPD exacerbation counseled to avoid alcohol counseled to fu closely with [facility] counselor declined referral to AUD program was present and is aware of resources to reach out for treatment Assessment & Plan (05/24/2022 10:00 AM EST): Doing well, he's cutting down significantly and will fu w Dr Sarmiento today. Encouraged to start AUD program Continue B1 and Folate supplementation Chronic obstructive pulmonary disease 05/24/2022 Overview (03/08/2024): He's O2 dependant due to chronic hypercarbic respiratory failure, likely pneumonitis/? Pulm fibrosis. Fu'd by Dr Ridley. Assessment & Plan (03/08/2024 10:49 AM EDT): Stable, continue combivent prn, O2 use and encouraged to not smoke or use recerational substances. FU with Dr Ridley He agreed to have Influenza IZ today, advised to have Covid booster at his earlier convenience. 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 Patient to continue Combivent prn Use O2 at 2li on ambulation only, patient desaturated with activity. Avoid smoking Covid booster and influenza IZ today. Abdominal mass 05/06/2022 Abnormal foot pulse 05/06/2022 Acute low back pain 05/06/2022 Vrnwv-mc-cehloci renal failure 05/06/2022 Alcoholic cirrhosis 05/06/2022 Assessment & Plan (03/08/2024 10:52 AM EDT): Refer to AUD clinic again, he never showed up to previus appt 6mo ago. Advised of dangers of ETOH and drug use including cirrhosis, mood dis, neurological damage and . Refer to GI for further fu I gave him info re liver US to schedule appt. Assessment & Plan (01/02/2024 11:34 AM EDT): F/u with [facility] program. He understands importance of avoiding alcohol use. Check LFTs prior to next visit. 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 Will add Losartan to his med boxes to assure compliance. Continue Lasix 20 mg daily + Spironolactone 25 mg. F/u with me in 3 months with BMP. Advised to f/u with cardiology. Discussed about the importance of avoiding drug use. Pt will start Prazosin at bedtime (for PTSD) it may or not may not affect BP, will continue to monitor BP. Assessment & Plan (10/03/2023 10:56 AM EDT): Doesn't seem to have any acute Sx at this time, advised to get BW done today so I can adjust medications, hopefully restart lisinopril Pt will call to check on fu appointment w/ cardiology Continue spironolactone 25mg + lasix 20mg + jardiance 25mg Counseled regarding low salt diet Continue to use O2 2L NC. He was advised to pick pulling machine tender CPAP and start using it ever night to decrease morbidity and mortality Assessment & Plan (08/29/2023 11:57 AM EDT): He's O2 dependent FU w cardiology in 3 m Counseled to avoid opioid use Continue lasix 20mg + spirolactone 25mg + jardiance 25mg Check BMP and BNP and restart kalli inhibitor if indicated Fu w me in 1 m Assessment & Plan (03/04/2023 2:26 PM EDT): FU by [facility] cardiology Recent echo showed EF 66% wm abnormalities/ has diastolic dysfunction Cont lasix 20 mg per day + jardiance 25 mg BID + spironolactone QHS Avoid ETOH or drugs, continue methadone Assessment & Plan (12/12/2022 1:04 PM EDT): Improving Add Lasix 10mg qPM x 5 days and check BMP/BNP Continue Lasix 20 + spiranolactone 25mg per day confirmed with pharmacy that he is off hydralazine. May consider kalli inhibitor or ARB for HTN/CHF control FU with cardiology Assessment & Plan (08/28/2022 12:42 PM EDT): Needs tighter control of HTN and cut down on salt use. Recommended to use Furosemide early afternoon to avoid accidents during the night time no change in medicaiton. FU with cardiology Check BMP prior to next appointment Recommnended to FU with BIPAP DME supplier Dependence on supplemental oxygen 05/06/2022 Assessment & Plan (08/29/2023 11:58 AM EDT): 2/2 to CHF Continue 2 L NC Pt needs to restart using CPAP every night, he will call [employer] to deliver fixed CPAP machine Assessment & Plan (03/04/2023 2:51 PM EDT): Use 2-3 L NC FU with pulmonology to prescribe a concentrator to increase portability Will have pt evaluated by PT due to limited ambulation, he should be able to walk a wheeled walker to more easily carry his oxygen. I would prefer him to avoid wheelchair as much as possible. Assessment & Plan (12/12/2022 1:04 PM EDT): counseled to use O2 1L NC to keep O2 sat 91-93% at least, especially with activities needs a conserving device with a cylinder to for him to be able to have a better portability outside of the home Assessment & Plan (08/28/2022 12:45 PM EDT): Using O2 overnight mostly O2 sat was above 92% Recommended to follow up with DME BIPAP Disturbance in sleep behavior 05/06/2022 Dysarthria 05/06/2022 Ecchymosis 05/06/2022 Injury of kidney 05/06/2022 Memory impairment 05/06/2022 Noncompliance with treatment 05/06/2022 Primary osteoarthritis of both knees 05/06/2022 Stage 3a chronic kidney disease 05/06/2022 Assessment & Plan (03/08/2024 10:50 AM EDT): GFR improved. Tremor of both hands 05/06/2022 Vascular insufficiency 05/06/2022 Venous stasis ulcer of left calf limited to breakdown of skin with varicose veins 05/06/2022 Thoracic lymphadenopathy 08/14/2018 Gastrointestinal hemorrhage 07/09/2018 Pure hypercholesterolemia 07/09/2018 Opioid dependence 06/24/2018 Assessment & Plan (01/02/2024 11:39 AM EDT): He currently taking methadone but still using heroine 2-3 times per week. Advised to reach out to methadone counselor and adjustment of the dose. Pt has Narcan at home and is aware of risks of using substances. Pt knows how to use Narcan. Assessment & Plan (10/03/2023 11:09 AM EDT): Methadone, continues to use heroin weekly Advised to reach out to methadone program and discuss on adjusting methadone dose to be able to decrease heroin use Pt has an active prescription for naloxone Discussed w/ pt regarding risk of overdose Assessment & Plan (08/29/2023 11:58 AM EDT): Currently on methadone and still using street opioids We discussed about the risk of OD when using street opioids, he will address this with methadone program to increase methadone dose Pt has narcan at home Will repeat HIP and HCB in 6 m Assessment & Plan (12/12/2022 1:02 PM EDT): Currently on methadone 30mg, no withdrawal symptoms, has occasional cravings counseled to fu closely with [facility] methadone program and cryolite recovery operator Assessment & Plan (08/28/2022 12:44 PM EDT): Pt on methadone 40mg, doing well Pt feels safe has Naloxone nasal spray at home is knowledgeable on how to use it Assessment & Plan (05/24/2022 9:58 AM EST): Doing well on methadone Advised to stick to methadone program protocols Encouraged to remain sober. Controlled type 2 diabetes m gordon with stage 3 chronic kidney disease, without long-term current use of insulin 06/24/2018 Assessment & Plan (01/02/2024 11:35 AM EDT): Controlled. A1c is at goal. Continue on Jardiance. Counseled re more frequent low calorie/carb meals. Check fgstk once daily Encouraged physical activity as tolerated. FU in 3 months. Assessment & Plan (10/03/2023 10:57 AM EDT): Probably controlled Counseled re more frequent low calorie/carb meals. Encouraged physical activity as tolerated. Continue jardiance 25 mg and fu A1c in 2 m Assessment & Plan (08/29/2023 11:59 AM EDT): Controlled. A1c is at goal. Continue on Jardiance Counseled re more frequent low calorie/carb meals. Check fgstk daily Encouraged physical activity as tolerated. FU in 1 m Assessment & Plan (03/04/2023 2:29 PM EDT): Fairly controlled Encouraged pt to be compliant with diet Increase jardiance to 25 mg per day Fu in 3 months Assessment & Plan (12/12/2022 1:03 PM EDT): Controlled Continue Jardiance Counseled re more frequent low calorie/carb meals. Encouraged physical activity as tolerated. FU in 3 months Assessment & Plan (08/28/2022 12:46 PM EDT): Controlled. A1c is at goal. Counseled re more frequent low calorie/carb meals. Check fgstk daily Encouraged physical activity as tolerated. FU at next appointment. Assessment & Plan (05/24/2022 9:55 AM EST): Controlled. A1c is at goal. Continue on Jardiance, mostly for cardiac and renal protection. Counseled re more frequent low calorie/carb meals. Check fgstk 2x daily, educated re hypoglycemic sxs Encouraged physical activity as tolerated. FU in 3 months. Resolved Problems Problem Noted Date Diagnosed Date Resolved Date Ascites due to alcoholic cirrhosis 05/06/2022 03/08/2024 Cardiac arrest 05/06/2022 01/02/2024 Encounters Date Type Department Care Team Description 07/04/2024 Refill [facility] [address] [place] [address] Nelly Bach MD 06/24/2024 10:30 AM EST Office Visit [facility] [address] [place] [address] Ravindra, Selma, OD Type 2 diabetes mellitus without ophthalmic manifestations (CMS/HCC) (Primary Dx); Age-related nuclear cataract of both eyes; Presbyopia 06/24/2024 Travel 06/23/2024 Refill [facility] [address] [place] [address] Alisia Miles DO Chronic obstructive pulmonary disease, unspecified COPD type (CMS/HCC) 06/07/2024 Telephone [facility] [address] [place] [address] Nelly Bach MD No Show 06/04/2024 Telephone [facility] [address] [place] [address] Lisbet Mendez MA Chart prep 05/28/2024 Orders Only GENERIC EXTERNAL DATA DEPARTMENT Provider, Generic External Data 05/27/2024 Patient Outreach [facility] [address] [place] [address] Nelly Bach MD Pre-visit Planning ([facility] screening is completed) from Last 3 Months Immunizations Name Administration Dates Next Due Hep B, adult 02/19/2019,10/09/2018,08/14/2018 Influenza injectable quadriv alent preservative free 03/04/2023,05/24/2022,05/08/2021,2019,06/15/2019,06/24/2018 Influenza, seasonal, injecta ble, preservative free 03/08/2024,07/16/2014 Pfizer Covid-19 Vaccine 12+ 03/25/2024,0 07/18/2021,09/30/2020,2020 Pfizer Covid-19 Vaccine 12+ Bivalent 05/24/2022 Pfizer Covid-19 Vaccine 12+ dar-sucrose (Menjivar Cap) 07/18/2021 Pneumococcal Conjugate PCV 20 01/11/2022 Tdap 01/11/2022 Zoster, Recombinant 01/11/2022,01/31/2021 Social History Tobacco Use Types Packs/Day Years Used Date Smoking Tobacco: Never Smokeless Tobacco: Never Tobacco Cessation:Counseling Given: Not Answered Alcohol Use Standard Drinks/Week Comments Not Currently [...] Orientation Straight 04/08/2022 10 :15 AM EDT Last Filed Vital Signs Vital Sign Reading Time Taken Comments Blood Pressure 140/80 03/08/2024 10:33 AM EDT Pulse 72 03/08/2024 9:56 AM EDT Temperature 36.7 ??C (98 ??F) 03/08/2024 9:56 AM EDT Respiratory Rate 16 03/08/2024 9:56 AM EDT Oxygen Saturation 97% 01/02/2024 11:00 AM EDT Inhaled Oxygen Concentration - - Weight 105 kg (232 lb) 03/08/2024 9:56 AM EDT Height 160 cm (5' 3 ) 03/08/2024 9:56 AM EDT Body Mass Index 41.1 03/08/2024 9:56 AM EDT Plan of Treatment Upcoming Encounters Date Type Department Care Team (Late st Contact Info) Description 08/27/2024 11:30 AM EDT Office Visit [facility] [address] [place] [address] Nelly Bach MD [address] [place] [address] Health Maintenance Due Date Last Done Comments CT Colonography 1960 Colonoscopy 1960 Colorectal Cancer Screening 1960 FIT DNA/Cologuard 1960 FIT 1960 FOBT 1960 Sigmoidoscopy 1960 Hepatitis A Vaccines (1 of 2 - Risk 2-dose series) 1981 RSV Patients and Patients Aged 60 years or older (1 - Risk 60-74 years 1-dose series) 2022 Diabetes: Foot Exam 12/13/2023 12/12/2022, 12/12/2022, 12/12/2022, Additional history exists Diabetes: Hemoglobin A1C 04/03/2024 024, 08/29/2023, 03/04/2023, Additional history exists Alcohol/Substance Use Screening 08/28/2024 08/29/2023 Depression Screening 08/28/2024 08/29/2023, 08/29/19 SDOH Screening 08/28/2024 08/29/2023 Lipid Panel 05/28/2025 05/28/2024, 11/08, 10/23/2021, Additional history exists Tobacco Screening 07/12/2025 07/12/2024 Eye Exam 06/24/2026 06/24/2024, 06/09, 06/24/2024, Additional history exists DTaP/Tdap/Td Vaccines (2 - Td or Tdap) 01/12/2032 01/11/2022 Hepatitis B Vaccines Completed 02/19/2019, 10/09/2018, 08/14/2018 Pneumococcal Vaccine: 50+ Years Completed 01/11/2022 Zoster Vaccines Completed 01/11/2022, 01/31/2021 HIV Screening Completed 02/12/2024 Influenza Vaccine Completed 03/08/2024, , 05/24/2022, Additional history exists COVID-19 Vaccine Completed 03/25/2024, , 07/18/2021, Additional history exists Hepatitis C Screening Completed 05/28/2024 , 02/12/2024, 05/08/2021 HIB Vaccines Aged Out No longer eligi ble based on patient's age to complete this topic HPV Vaccines Aged Out No longer eligi ble based on patient's age to complete this topic IPV Vaccines Aged Out No longer eligi ble based on patient's age to complete this topic Meningococcal Vaccine Aged Out No hali pauly eligible based on patient's age to complete this topic RSV under 20 months Aged Out No longe r eligible based on patient's age to complete this topic Rotavirus Vaccines Aged Out No longer eligible based on patient's age to complete this topic Procedures Procedure Name Priority Date/Time Associated Diagnosis Comments CT ABDOMEN PELVIS WO CONTRAST Routine 06/10/2024 5:35 PM EST HOLD GREEN GEL Routine 05/28/2024 2:12 PM EST LIVER FIBROSIS, FIBROTEST ACTITEST PANEL Routine 05/28/2024 2:12 PM EST ACTIN (SMOOTH MUSCLE) ANTIBODY (IGG) Routine 05/28/2024 2:12 PM EST VITAMIN D 25-OH (D2 AND D3) Routine 05/28/2024 2:12 PM EST LIVER KIDNEY MICROSOME (LKM-1) AB (IGG) Routine 05/28/2024 2:12 PM EST MITOCHONDRIAL ANTIBODY WITH REFLEX TO TITER Routine 05/28/2024 2:12 PM EST HEPATITIS C VIRAL RNA, QUANTITATIVE, REAL-TIME PCR Routine 05/28/2024 2:12 PM EST TISSUE TRANSGLUTAMINASE AB, IGA Routine 05/28/2024 2:12 PM EST ALPHA FETOPROTEIN, TUMOR MARKER Routine 05/28/2024 2:12 PM EST CERULOPLASMIN Routine 05/28/2024 2:12 PM EST TSH W/REFLEX TO FT4 Routine 05/28/2024 2 :12 PM EST FERRITIN Routine 05/28/2024 2:12 PM EST LIPASE Routine 05/28/2024 2:12 PM EST GGT Routine 05/28/2024 2:12 PM EST LIPID PANEL, STANDARD Routine 05/28/2024 2:12 PM EST C-REACTIVE PROTEIN Routine 05/28/2024 2: 12 PM EST IRON AND TOTAL IRON BINDING CAPACITY Routine 05/28/2024 2:12 PM EST MAGNESIUM Routine 05/28/2024 2:12 PM EST HEPATIC FUNCTION PANEL Routine 2:12 PM EST COMPREHENSIVE METABOLIC PANEL Routine 05/28/2024 2:12 PM EST VITAMIN B12/FOLATE, SERUM PANEL Routine 05/28/2024 2:12 PM EST SED RATE BY MODIFIED WESTERGREN Routine 05/28/2024 2:12 PM EST CBC Routine 05/28/2024 2:12 PM EST HIV 1/2 ANTIGEN/ANTIBODY, FOURTH GENERATION W/RFL Routine 02/12/2024 11:07 AM EDT Alcoholic cirrhosis, unspecified whether ascites present (CMS/HCC) POCT GLYCATED HEMOGLOBIN, TOTAL Routine 01/02/2024 11:09 AM EDT Controlled type 2 diabetes mellitus with stage 3 chronic kidney disease, without long-term current use of insulin (CMS/HCC) from Last 3 Months or Most Recently Relevant to Health Maintenance Results * CT Abdomen Pelvis w/o Contrast (06/10/2024 5:35 PM EST) Anatomical Region Laterality Modality Body, Pelvis, Abdomen Computed T omography 06/10/2024 5:35 PM EST Narrative 06/10/2024 5:36 PM EST ? [facility] ?[address] ?[place] [address] ? CT Scan Report ? Signed with Addenda ? Patient: Isael Britton ?MR#: [id number] ? : 1960 ?Acct:[id number] ? Age/Sex: 63 / M ?ADM Date: 06/10/ ? Loc: HO.CT ? Attending Dr: Taryn Jerez RETAIL OPERATIONS SPECIALIST-BC ? Ordering Physician: Taryn Jerez RETAIL OPERATIONS SPECIALIST-BC ?? Date of Service: 06/10/24 ?? Procedure(s): CT abdomen pelvis wo IV con ?? Accession Number(s): [id number] ? cc: Nelly Bach MD; Taryn Jerez RETAIL OPERATIONS SPECIALIST-BC ? Report Number: ?? [id number]: Total DLP = ??717.00 mGy-cm ?ADDENDUM ?? 06/10/2024 17:35:02 ? ADDENDUM: ?? ADDENDUM: ?? Clinical question regarding possible presence of ascities. ? No ascities identified within the abdomen or pelvis. ? This document has been electronically signed by: Sergo Ortiz MD on ?? 06/14/2024 14:08:06 ? Addendum Dictated By: ?Sergo Ortiz MD ? Addendum Signed By: ? <Electronically signed by Sergo Ortiz MD in OV> ?06/14/24 1408 ?? Addendum Cosigned By: ? DD/ /03/1734 ? TD/TT: 06/14/2412/02/1407 ? CLINICAL HISTORY: R10.9 - Unspecified abdominal pain ? CT abdomen and pelvis with IV contrast. ? COMPARISON: CT abdomen and pelvis dated 08/08/23 at 13:45 EST ? FINDINGS: ?? Cardiomegaly. Aortic annular calcifications. ?? Hepatic steatosis. Nodular hepatic contour. Cholelithiasis present. ?? Noncontrast appearance of the spleen, pancreas and adrenal glands are ?? unremarkable. Small splenule present. ?? No renal or ureteral calculus. No hydronephrosis. ? Oral contrast has progressed into the proximal transverse colon. No bowel ?? obstruction. ?? Normal appendix. ?? No mesenteric or retroperitoneal lymphadenopathy. ?? Mild aortoiliac atherosclerotic vascular calcifications. ? Normal appearance of the urinary bladder. ?? No inguinal lymphadenopathy. ?? Small fat containing umbilical hernia. Mild spondylosis. No acute fracture ?? or suspicious bone lesion. ? IMPRESSION: ?? 1. No cause for patient's symptoms identified. No evidence of ?? appendicitis. No bowel obstruction. No evidence of renal obstruction. ?? 2. Cirrhotic hepatic morphology with hepatic steatosis. ? This document has been electronically signed by: Sergo Ortiz MD on ?? 06/10/2024 17:35:02 ? Dictated By: ?Sergo Ortiz MD ? Signed By: ?<Electronically signed by Sergo Ortiz MD in OV> ?06/10/24 1736 ? DD/ 1735 ? TD/TT: 06/10/245 ? Academic Adviser: ? Procedure Note Nayely, Adriano - 06/14/[address] [address] [address] Scan Report Signed with Addenda Patient: Isael Britton [facility]#: [id number] : 1960Acct:[id number] Age/Sex: 63 / MADM Date: 06/10/24 Loc: HO.CT Attending Dr: Taryn Jerez [facility] Ordering Physician: Taryn Jerez [facility] Date of Service: 06/10/24 Procedure(s): CT abdomen pelvis wo IV con Accession Number(s): [id number] cc: Nelly Bach MD; Taryn Jerez [facility] Report Number: [id number]: Total DLP = 717.00 mGy-cm ADDENDUM 06/10/2024 17:35:02 ADDENDUM: ADDENDUM: Clinical question regarding possible presence of ascities. No ascities identified within the abdomen or pelvis. This document has been electronically signed by: Sergo Ortiz MD on 06/14/2024 14:08:06 Addendum Dictated By: Sergo Ortiz MD Addendum Signed By: <Electronically signed by Sergo Ortiz MD in OV> 06/14/241407 Addendum Cosigned By: DD/ /03/1734 TD/TT: 06/14/2412/02/1407 CLINICAL HISTORY: R10.9 - Unspecified abdominal pain CT abdomen and pelvis with IV contrast. COMPARISON: CT abdomen and pelvis dated 08/08/23 at 13:45 EST FINDINGS: Cardiomegaly. Aortic annular calcifications. Hepatic steatosis. Nodular hepatic contour. Cholelithiasis present. Noncontrast appearance of the spleen, pancreas and adrenal glands are unremarkable. Small splenule present. No renal or ureteral calculus. No hydronephrosis. Oral contrast has progressed into the proximal transverse colon. No bowel obstruction. Normal appendix. No mesenteric or retroperitoneal lymphadenopathy. Mild aortoiliac atherosclerotic vascular calcifications. Normal appearance of the urinary bladder. No inguinal lymphadenopathy. Small fat containing umbilical hernia. Mild spondylosis. No acute fracture or suspicious bone lesion. IMPRESSION: 1. No cause for patient's symptoms identified. No evidence of appendicitis. No bowel obstruction. No evidence of renal obstruction. 2. Cirrhotic hepatic morphology with hepatic steatosis. This document has been electronically signed by: Sergo Ortiz MD on 06/10/2024 17:35:02 Dictated By: Sergo Ortiz MD Signed By: <Electronically signed by Sergo Ortiz MD in OV> 06/10/24 173 DD/ 34 TD/TT: 06/10/241734 Academic Adviser: us [facility] External Provider IMG CT PROCEDURES Edited Result - Final * Hold Green Gel (05/28/2024 2:12 PM EST) Hold Green Gel See Note [facility] Comment:Specimen held untest ed for 24 hours; Call to requestChemistry testing. 05/28/2024 2:12 PM EST 05/28/2024 2:12 PM EST Generic External Data Provider HISTORICAL/NON OR DERABLE LABS Final Result [facility] [address], [place] [phone] * (ABNORMAL) VITAMIN D 25-OH (D2 AND D3) (05/28/2024 2:12 PM EST) Vitamin D, 25-OH, D2 4 ng/mL [facility] Comment:This test was develo ped and its analytical performancecharacteristics have been determined by [employer], [place]. It hasnot been cleared or approved by the U.S. Food and DrugAdministration. This assay has been validated pursuantto the CLIA regulations and is used for clinicalpurposes.THIS TEST WAS PERFORMED AT:[facility] [place] [address]BPCEZMFMARIO CARRIZALES MD,PHD Vitamin D, 25-OH, D3 9 ng/mL [facility] Comment:This test was develo ped and its analytical performancecharacteristics have been determined by [employer], [place]. It hasnot been cleared or approved by the U.S. Food and DrugAdministration. This assay has been validated pursuantto the CLIA regulations and is used for clinicalpurposes. Vitamin D, 25-OH, Total 13(A) 30 - 100 ng/mL [facility] Comment:Vitamin D, 25-Hydrox y reports concentrations of twocommon forms, 25-OHD2 and 25-OHD3. 25-OHD3 indicatesboth endogenous production and supplementation.25-OHD2 is an indicator of exogenous sources such asdiet or supplementation. Therapy is based onmeasurement of Total 25-OHD, with levels <20 ng/mLindicative of Vitamin D deficiency, while levelsbetween 20 ng/mL and 30 ng/mL suggest insufficiency.Optimal levels are > or = 30 ng/mL.For additional information, please refer tohttp://education.L[employer]Friend/faq/NJV431(This link is being provided for informational/educational purposes only.) 05/28/2024 2:12 PM EST 05/28/2024 2:12 PM EST us Generic External Data Provider LAB BLOOD ORDERAB LES Final Result [facility] [address] [place] [phone] * Vitamin B12 (Cobalamin) and Folate Panel, Serum (05/28/2024 2:12 PM EST) Vitamin B12 438 200 - 900 pg/mL [facility] Comment:NORMAL 200-900 PG/ML INDETERMINATE 160-199 PG/ML DEFICIENT < 160 PG/ML Folate 18.3 > or = 4.0 ng/mL [facility] Comment:Reference Values:> o r = 4.0 ng/mL< 4.0 ng/mL suggests folate deficiency Methotrexate, aminopterin and folinic acid(leucovorin) are chemotherapeutic agents whose molecularstructures are similar to folate; therefore, the Architectfolate assay cannot be used for patients using these drugs. 05/28/2024 2:12 PM EST 05/28/2024 2:12 PM EST us Generic External Data Provider LAB BLOOD ORDERAB LES Final Result Performing Organization Address City/[facility]/ZIP Co de Phone Number [facility] [address] [place] [phone] * TSH with Reflex to Free T4 (05/28/2024 2:12 PM EST) TSH reflex Free T4 1.21 0.32 - 4.0 uIU/mL [facility] 05/28/2024 2:12 PM EST 05/28/2024 2:12 PM EST us Generic External Data Provider LAB BLOOD ORDERAB LES Final Result Performing Organization Address [facility] Co de Phone Number [facility] [address] [place] [phone] * (ABNORMAL) Liver Fibrosis (HCV), FibroTest-ActiTest Panel (05/28/2024 2:12 PM EST) Liver Fibrosis Score 0.28 [facility] Liver Fibrosis Stage F1 [facility] Liver Fibrosis Interpretation SEE NOTE [facility] Comment:minimal fibrosisFibr o Test Score (f) Metavir Score f>=0 and f<=0.21 : F0 (no fibrosis)f>0.21 and f<=0.27 : F0-F1 (no fibrosis)f>0.27 and f<=0.31 : F1 (minimal fibrosis)f>0.31 and f<=0.48 : F1-F2 (minimal fibrosis)f>0.48 and f<=0.58 : F2 (moderate fibrosis)f>0.58 and f<=0.72 : F3 (advanced fibrosis)f>0.72 and f<=0.74 : F3-F4 (advanced fibrosis)f>0.74 and f<=1.00 : F4 (severe fibrosis) Nec Inflam Act Score 0.10 [facility] Nec Inflam Act Grade A0 [facility] Nec Inflam Act Interpretation SEE NOTE [facility] Comment:no activityActiTest Score (a) Metavir Score a>=0 and a<=0.17 : A0 (no activity)a>0.17 and a<=0.29 : A0-A1 (no activity)a>0.29 and a<=0.36 : A1 (minimal activity)a>0.36 and a<=0.52 : A1-A2 (minimal activity)a>0.52 and a<=0.60 : A2 (significant activity)a>0.60 and a<=0.62 : A2-A3 (significant activity)a>0.62 and a<=1.00 : A3 (severe activity) MXS-Lpabg-1-Macroglo bulin 165 106 - 279 mg/dL [facility] FIB-Haptoglobin 154 43 - 212 mg/dL [facility] FIB-Apolipoprotein A1 243(A) 94 - 176 mg/dL [facility] FIB-Total Bilirubin 0.6 0.2 - 1.2 mg/dL [facility] FIB-GGT 805(A) 3 - 70 U/L [facility] FIB-ALT 24 9 - 46 U/L [facility] Reference ID [id number] [facility] Footnote SEE NOTE [facility] Comment: The reliability of results is dependent on compliance withthe preanalytical and analytical conditions recommended byBioPredictive. The tests have to be deferred for: acutehemolysis, acute hepatitis, acute inflammation, extrahepatic cholestasis. The advice of a specialist should besought for interpretation in chronic hemolysis and Gilbert'ssyndrome. The test interpretation is not validated in livertransplant patients. Isolated extreme values of one of thecomponents should lead to caution in interpreting theresults. In case of discordance between a biopsy result stella test, it is recommended to seek the advice of aspecialist. The causes of these discordances could be due toa flaw of the test or to a flaw in the biopsy: i.e. a liverbiopsy has a 33% variability rate for one fibrosis stage.FibroTest is interpretable for chronic hepatitis B and C,alcoholic and non alcoholic steatosis. ActiTest isinterpretable for chronic hepatitis B and C.The performance characteristics have been determined byAs[employer] [facility]. Ithas not been cleared or approved by the U.S. Food and DrugAdministration. Performance characteristics refer to theanalytical performance of the test.[employer], [employer], the associated logo, [employer] and all associated [employer] pugh are theregistered trademarks of [employer]. All third partymarks - (R) and (TM) - are the property of their respectiveowners. (C) [id number] [employer]. Allrights reserved.THIS TEST WAS PERFORMED AT:[facility]/[employer] [id number] [place] ??[phone] LEE MD,PHD,IDA 05/28/2024 2:12 PM EST 05/28/2024 2:12 PM EST Generic External Data Provider LAB BLOOD ORDERAB LES Final Result [facility] [address] [place] [phone] * Hepatitis C Viral RNA, Quantitative, Real-Time PCR (05/28/2024 2:12 PM EST) Hepatitis C Viral Load <15 NOT DETECTED NOT DETECTED IU/mL [facility] HCV Log PCR <1.18 NOT DETECTED NOT DETECTED Log IU/mL [facility] Comment:For additional infor mation, please refer tohttp://education.Tatara Systems/faq/VTV25o0(This link is being provided for informational/educational purposes only.)THIS TEST WAS PERFORMED AT:[facility] [address] [id number] HAAS MD 05/28/2024 2:12 PM EST 05/28/2024 2:12 PM EST us Generic External Data Provider LAB BLOOD ORDERAB LES Final Result Performing Organization Address [facility]/ZIP Co de Phone Number [facility] [address] [place] [phone] * Iron And Total Iron Binding Capacity (05/28/2024 2:12 PM EST) Iron 46 45 - 160 mcg/dL [facility] Total Iron Binding Capacity 291 228 - 428 mcg/dL [facility] Percent Iron Saturation 16 15 - 50 % [facility] Unsaturated Iron Binding 245 ug/dL [facility] 05/28/2024 2:12 PM EST 05/28/2024 2:12 PM EST us Generic External Data Provider LAB BLOOD ORDERAB LES Final Result Performing Organization Address [facility] Co de Phone Number [facility] [address] [place] [phone] * Actin (Smooth Muscle) Antibody (IgG) (05/28/2024 2:12 PM EST) Smooth Muscle Antibody <20 <20 U [facility] Comment:Reference Range: <20 U: Negative>or=20 U: PositiveAntibodies recognizing actin are the main componentof smooth muscle antibodies associated with auto- immune liver disease. Actin antibodies are found inapproximately 75% of patients with autoimmunehepatitis (AIH) type 1, approximately 65% of patientswith autoimmune cholangitis, approximately 30% ofpatients with primary biliary cirrhosis andapproximately 2% of healthy controls. High values areclosely correlated with AIH type 1.THIS TEST WAS PERFORMED AT:[facility]OS[address] [place] [address]WVTNETLMARIO CARRIZALES MD,PHD 05/28/2024 2:12 PM EST 05/28/2024 2:12 PM EST us Generic External Data Provider LAB BLOOD ORDERAB LES Final Result Performing Organization Address [facility]/ZIP Co de Phone Number [facility] [address] [place] [phone] * Tissue Transglutaminase Antibody, IgA (05/28/2024 2:12 PM EST) Transglutaminase IgA 2.2 U/mL [facility] Comment:Value Interpretation ----- <15.0 Antibody not detected> or = 15.0 Antibody detectedTHIS TEST WAS PERFORMED AT:[facility] [address] [id number] HAAS MD 05/28/2024 2:12 PM EST 05/28/2024 2:12 PM EST Generic External Data Provider LAB BLOOD ORDERAB LES Final Result Performing Organization Address [facility]/ZIP Co de Phone Number [facility] [address] [place] [phone] * Ceruloplasmin (05/28/2024 2:12 PM EST) Ceruloplasmin 28 14 - 30 mg/dL [facility] Comment:THIS TEST WAS PERFOR MED AT:[facility] [address] [id number] HAAS MD 05/28/2024 2:12 PM EST 05/28/2024 2:12 PM EST Generic External Data Provider LAB BLOOD ORDERAB LES Final Result Performing Organization Address [facility]/ZIP Co de Phone Number [facility] [address] [place] [phone] * Alpha-Fetoprotein, Tumor Marker (05/28/2024 2:12 PM EST) Alpha Fetoprotein 4.3 <6.1 ng/mL [facility] Comment:This test was perfor med using the Kathie Coulterchemiluminescent method. Values obtained fromdifferent assay methods cannot be usedinterchangeably. AFP levels, regardless ofvalue, should not be interpreted as absoluteevidence of the presence or absence of disease.THIS TEST WAS PERFORMED AT:[facility] [address] [address]LGHEFATILIO HAAS MD 05/28/2024 2:12 PM EST 05/28/2024 2:12 PM EST Generic External Data Provider LAB BLOOD ORDERAB LES Final Result Performing Organization Address [facility] Co de Phone Number [facility] [address] [place] [phone] * Liver Kidney Microsomal (LKM-1) Antibody??(IgG) (05/28/2024 2:12 PM EST) Liver Kidney Microsomal (LKM-1) Antibody IgG <=20.0 <=20.0 U [facility] Comment:Reference Range: <=2 0.0 Negative 20.1-24.9 Equivocal >=25.0 PositiveAnti-liver/kidney microsomal antibodies (Anti-LKM-1)were previously tested by indirect immunofluorescence(IF) using rodent liver/kidney substrate.Identification of a specific antibody target ascytochrome P450 IID6 has led to the current recombinantbased KAVON. Antibodies to this cytochrome are presentin approximately 70% of patients with autoimmunehepatitis type 2. This antibody is also present inapproximately 10% of patients with hepatitis Cinfection.THIS TEST WAS PERFORMED AT:[facility] [place] [address]LNEBAZFMARIO CARRIZALES MD,PHD 05/28/2024 2:12 PM EST 05/28/2024 2:12 PM EST Generic External Data Provider LAB BLOOD ORDERAB LES Final Result Performing Organization Address [facility] Co de Phone Number [facility] [address] [place] [phone] * Mitochondrial Antibody with Reflex to Titer (05/28/2024 2:12 PM EST) Mitochondrial Antibodies NEGATIVE NEGATIVE [facility] Comment:THIS TEST WAS PERFOR MED AT:[facility] [place] [id number] HAAS MD Mitochondrial Ab Titer TNP [facility] 05/28/2024 2:12 PM EST 05/28/2024 2:12 PM EST Generic External Data Provider LAB BLOOD ORDERAB LES Final Result Performing Organization Address [facility] Co de Phone Number [facility] [address] [place] [phone] * (ABNORMAL) Sed Rate by Modified Westergren (05/28/2024 2:12 PM EST) Pathologist [facility] Erythrocyte Sedimentation Rate 28(H) 0 - 15 MM/HR [facility] Comment:Patients with polycy themia and many hemoglobin abnormalitiesmay have depressed sed rates whereas patients with anemiamay have elevated sed rates. 05/28/2024 2:12 PM EST 05/28/2024 2:12 PM EST Generic External Data Provider LAB BLOOD ORDERAB LES Final Result Performing Organization Address [facility] Co de Phone Number [facility] [address] [place] [phone] * (ABNORMAL) CBC (05/28/2024 2:12 PM EST) Pathologist [facility] White Blood Count 9.6 4.8 - 10.8 X10*3/uL [facility] Red Blood Count 4.58(L) 4.60 - 5.80 X10*6/uL [facility] Hemoglobin 13.4(L) 14.0 - 18.0 g/dl [facility] Hematocrit 42.5 42.0 - 52.0 % [facility] Mean Corpuscular Volume 92.8 80.0 - 98.0 fL [facility] Mean Corpuscular Hemoglobin 29.3 27.0 - 33.0 pg [facility] Mean Corpuscular HGB Conc 31.5 31.0 - 36.0 g/dl [facility] Red Cell Distribution Width 15.6 11.0 - 16.0 % [facility] Platelet Count 179 160 - 400 X10*3/uL [facility] Mean Platelet Volume 10.0 9.4 - 12.4 fL [facility] NRBC Pct Auto 0.0 0.0 - 0.2 /100WBC [facility] NRBC Abs Auto 0.000 0.0 - 0.012 X10*3/uL [facility] 05/28/2024 2:12 PM EST 05/28/2024 2:12 PM EST Generic External Data Provider LAB BLOOD ORDERAB LES Final Result Performing Organization Address [facility] Co de Phone [facility] [address] [place] [phone] * (ABNORMAL) C-reactive Protein (05/28/2024 2:12 PM EST) C Reactive Protein 3.34(H) < or = 0.50 mg/dL [facility] 05/28/2024 2:12 PM EST 05/28/2024 2:12 PM EST Generic External Data Provider LAB BLOOD ORDERAB LES Final Result Performing Organization Address City/[facility] Co de Phone Number [facility] [address] [place] [phone] * Magnesium (05/28/2024 2:12 PM EST) Magnesium 2.1 1.6 - 2.6 mg/dL [facility] 05/28/2024 2:12 PM EST 05/28/2024 2:12 PM EST us Generic External Data Provider LAB BLOOD ORDERAB LES Final Result Performing Organization Address [facility]/ZIP Co de Phone Number [facility] [address] [place] [phone] * Lipase (05/28/2024 2:12 PM EST) Lipase 24 8 - 78 U/L [facility] 05/28/2024 2:12 PM EST 05/28/2024 2:12 PM EST us Generic External Data Provider LAB BLOOD ORDERAB LES Final Result Performing Organization Address [facility] Co de Phone Number [facility] [address] [place] [phone] * (ABNORMAL) Gamma Glutamyl Transferase (GGT) (05/28/2024 2:12 PM EST) Gamma Glutamyl Transpeptidase 1,005(H) 11 - 51 U/L [facility] 05/28/2024 2:12 PM EST 05/28/2024 2:12 PM EST us Generic External Data Provider LAB BLOOD ORDERAB LES Final Result Performing Organization Address [facility] Co de Phone Number [facility] [address] [place] [phone] * Ferritin (05/28/2024 2:12 PM EST) Ferritin 175 20 - 250 ng/mL [facility] 05/28/2024 2:12 PM EST 05/28/2024 2:12 PM EST us Generic External Data Provider LAB BLOOD ORDERAB LES Final Result Performing Organization Address [facility] Co de Phone Number [facility] [address] [place] [phone] * Hepatic Function Panel (05/28/2024 2:12 PM EST) Bilirubin, Direct 0.3 0.0 - 0.5 mg/dL [facility] 05/28/2024 2:12 PM EST 05/28/2024 2:12 PM EST Generic External Data Provider LAB BLOOD ORDERAB LES Final Result Performing Organization Address [facility] Co de Phone Number [facility] [address] [place] [phone] * (ABNORMAL) Lipid Panel, Standard (05/28/2024 2:12 PM EST) Triglycerides 175(H) <150 mg/dL [facility] Comment:Desirable Triglyceri de: less than 150 mg/dLBorderline High Triglyceride 150-199 mg/dLHigh Triglyceride: 200-499 mg/dLVery High Triglyceride: greater than or equal to 5OO mg/dL Cholesterol 262(H) <200 mg/dL [facility] Comment:Desirable Cholestero l: less than 200 mg/dLBorderline High Cholesterol: 200-239 mg/dLHigh Cholesterol: greater than 239 mg/dL LDL Cholesterol Calculated 141(H) <100 mg/dL [facility] Comment:Desirable LDL: less than 100 mg/dLNear Optimal/Above Optimal LDL: 110- 129 mg/dLBorderline High LDL: 130-159 mg/dLHigh LDL: 160-189 mg/dLVery High LDL: greater than or equal to 190 mg/dL HDL Cholesterol 86 >40 mg/dL [facility] Comment:Desirable HDL: great er than 40 mg/dL Note: This HDL assay may give artificially low results in patients with liver disease. 05/28/2024 2:12 PM EST 05/28/2024 2:12 PM EST Generic External Data Provider LAB BLOOD ORDERAB LES Final Result Performing Organization Address City/[facility]/ZIP Co de Phone Number [facility] [address] [place] [phone] * (ABNORMAL) Comprehensive Metabolic Panel (05/28/2024 2:12 PM EST) Sodium 140 135 - 145 mmol/L [facility] Potassium 4.8 3.3 - 5.1 mmol/L [facility] Chloride 103 96 - 108 mmol/L [facility] Carbon Dioxide 27 22 - 29 mmol/L [facility] Anion Gap 15 12 - 20 [facility] Urea Nitrogen (BUN) 19(H) 9 - 16 mg/dL [facility] Creatinine, Serum 1.51(H) 0.5 - 1.4 mg/dL [facility] Estimated Glomerular Filt Rate 47 [facility] Comment:Chronic Kidney Disea se: Estimated GFR < 60 mL/min/1.73i3Ptdyrb Kidney Disease: Estimated GFR < 15 mL/min/1.73m2 Glucose 160(H) 60 - 115 mg/dL [facility] Calcium 9.5 8.4 - 10.2 mg/dL [facility] Bilirubin, Total 0.7 0.0 - 1.0 mg/dL [facility] Aspartate Amino Transferase 36 5 - 37 U/L [facility] Alanine Aminotransferase 37 0 - 40 U/L [facility] Total Protein 8.4(H) 6.5 - 8.0 g/dL [facility] Albumin Level 4.0 3.5 - 5.0 g/dL [facility] Alkaline Phosphatase 148(H) 39 - 117 U/L [facility] 05/28/2024 2:12 PM EST 05/28/2024 2:12 PM EST us Generic External Data Provider LAB BLOOD ORDERAB LES Final Result [facility] [address] [place] [phone] * HIV-1/2 Antigen and Antibodies, Fourth Generation, with Reflexes (02/12/2024 11:07 AM EDT) HIV AB/AG Nonreactive Nonreactive [facility] Comment:HIV-1 p24 Ag and/or HIV-1/HIV-2 Ab not detected.A test result that is nonreactive does not exclude thepossibility of exposure to or infection with HIV-1 and/orHIV-2. Nonreactive results in this assay for individualswith prior exposure to HIV-1 and/or HIV-2 may be due toantigen and antibody levels that are below the limit ofdetection of this assay.The [employer] HIV Ag/Ab Combo assay result andsupplemental assay results should be interpreted inconjunction with the patient's clinical presentation,history and other laboratory results. If the results areinconsistent with clinical evidence, additional testing issuggested to confirm the result. Blood Venous blood specimen / Unknown 02/12/2024 11:07 AM EDT 02/12/2024 11:07 AM EDT Nelly Bach MD LAB BLOOD ORDERABLES Fin al Result [facility] [address] [place] [phone] * (ABNORMAL) POCT HGB A1C (01/02/2024 11:09 AM EDT) Pathologist [facility] Hemoglobin A1C 6.6(A) 4.0 - 6.0 % QC Media Lot # [id number] Lot# Expiration Date [id number] Blood 01/02/2024 11:0 9 AM EDT Nelly Bach MD POINT OF CARE TEST ENTER /EDIT ORDERABLES Final Result from Last 3 Months or Most Recently Relevant to Health Maintenance Insurance C3 Care Teams Pressure Dispatcher Relationship Specialty Start Date End Date Nelly Bach MD [address] [place] [phone] PCP - General Family Medicine 06/19/18
--- OUTSIDE RECORDS SUMMARY | 2024-07-17 08:35 | XMS_ITS | Encounter Summary ---
Author Organization [employer] Address [facility] [address] [place] [address] Care Team Providers Care Wwe Wrestler Name Role Phone Nelly Bach MD Primary Care Provider + Reason for Visit * Reason Comments Med Refill Encounter Details Date Type Department Care Team ([facility] st Contact Info) Description 06/23/2024 Refill [facility] [address] [place], [place] [phone] Alisia Miles DO [address] [place], [place] [phone] Chronic obstructive pulmonary disease, unspecified COPD type ([facility]) Social History Tobacco Use Types Packs/Day Years [...] Description 08/27/2024 11:30 AM EDT Office Visit [facility] [address] [place] [phone] Nelly Bach MD [address] [place] [phone] documented as of this encounter Visit Diagnoses Diagnosis Chronic obstructive pulmonary disease, unspecified COPD type (CMS/HCC) documented in this encounter Care Teams Wwe Wrestler Relationship Specialty Start Date End Date Nelly Bach MD [address] [place] [phone] PCP - General Family Medicine 06/19/18 documented as of this encounter
--- OUTSIDE RECORDS SUMMARY | 2024-07-17 08:35 | XMS_ITS | Encounter Summary ---
Author Organization [employer] Address [address] [place] [address] Care Team Providers Care Water Reclamation Systems Operator Name Role Phone Nelly Bach MD Primary Care Provider + Reason for Visit * Reason Comments Diabetic Eye Exam Encounter Details Date Type Department Care Team (Latest Contact Info) Description 06/24/2024 10:30 AM EST Office Visit [facility] [address] [place] [address] Ravindra, Selma, OD [address] [place] [address] Type 2 diabetes mellitus without ophthalmic manifestations (CMS/HCC) (Primary Dx); Age-related nuclear cataract of both eyes; Presbyopia Social History Tobacco Use Types Packs/Day Years [...] is your housing situation today? I have cabreraabhay hobbs 04/02/[address] you [...] AM EDT documented as of this encounter Progress Notes * Selma Waite, OD - 06/24/2024 10:30 AM EST Eye Care Progress Note Patient ID: Isael Britton is a 64 y.o. male. Chief Complaint Diabetic Eye Exam HPI Here for a diabetic eye exam. He has Type II NIDDM. His last HbA1c was 6.6% on 01/02/2024. The patient has a history of ocular hypertension that is not being treated. Today he complains of blurred vision in both eyes at distance since he broke his glasses over a year ago. He denies near vision complaints. The patient reports a history of multiple falls and head injuries. 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 His last eye exam was here on 12/18/2018. Last edited by Selma Waite, OD on 07/13/2024 4:05 PM. Current Outpatient Medications Medication Sig Dispense Refill lactulose (Chronulac) 10 GM/15ML solution TAKE 30 ML BY MOUTH TWICE DAILY rosuvastatin (Crestor) 40 MG tablet Take 40 mg by mouth at bedtime. Blood Glucose Monitoring Suppl (FreeStyle Lite) device Inject under the skin if needed. Check bloodsugar 2 times every day Blood Pressure Monitoring (Omron 3 Series BP Monitor) device USE TO CHECK BLOOD PRESSURE DAILY Diclofenac Sodium 1 % gel Apply 2 grams if needed in the morning and at bedtime for pain 100 g 1 folic acid (Folvite) 1 MG tablet TAKE 1 TABLET BY MOUTH EVERY MORNING 90 tablet 3 FREESTYLE LITE test strip TEST BLOOD SUGAR TWICE DAILY IN THE MORNING AND AT BEDTIME 150 strip 5 furosemide (Lasix) 20 MG tablet TAKE 1 TABLET BY MOUTH EVERY MORNING 90 tablet 1 ipratropium-albuterol (Combivent Respimat) 20-100 MCG/ACT inhaler INHALE 1 PUFF BY MOUTH FOUR TIMESDAILY DURING WAKING HOURS 4 g 0 Jardiance 25 MG TAKE 1 TABLET BY MOUTH EVERY MORNING 30 tablet 11 losartan (Cozaar) 25 MG tablet Take 1 tablet (25 mg) by mouth Once per day. 90 tablet 3 methadone (Dolophine) 10 MG/5ML solution Take 55 mg by mouth Once per day. [facility] Methadone clinic Misc. Devices (Pulse Oximeter For Finger) misc -Use daily and as needed to check O2 sats naloxone (Narcan) 4 mg/0.1 mL nasal spray Administer 0.1 mL into affected nostril(s). omeprazole (PriLOSEC) [address] capsule Take 1 capsule by mouth. Every day before a meal PARoxetine (Paxil) 20 MG tablet TAKE 1 TABLET BY MOUTH EVERY MORNING 30 tablet 0 prazosin (Minipress) 2 MG capsule Take 1 capsule (2 mg) by mouth at bedtime. 90 capsule 0 sennosides (Senna Lax) 8.6 MG tablet Take 2 tablets (17.2 mg) by mouth Once per day. 180 tablet 3 spironolactone (Aldactone) 25 MG tablet TAKE 1 TABLET BY MOUTH AT BEDTIME 90 tablet 1 thiamine (Vitamin B-1) 100 MG tablet TAKE 1 TABLET BY MOUTH EVERY MORNING 90 tablet 3 TRUEplus Lancets 33G [facility] TEST BLOOD SUGAR TWICE DAILY 100 each 5 No current facility-administered medications for this visit. Past Medical History: Diagnosis Date Ascites due to alcoholic cirrhosis (CMS/HCC) 05/06/2022 Diabetes mellitus (CMS/HCC) HLD (hyperlipidemia) Hypertension History reviewed. No pertinent surgical history. No family history on file. Social History Socioeconomic History Marital status: Single Spouse name: Not on file Number of children: Not on file Years of education: Not on file Highest education level: Not on file Occupational History Not on file Tobacco Use Smoking status: Never Smokeless tobacco: Never Vaping Use Vaping status: Never Used Substance and Sexual Activity Alcohol use: Not Currently Comment: oca Drug use: Not Currently Sexual activity: Not on file Other Topics Concern Not on file Social History Narrative Not on file Social Drivers of Health Food Insecurity: Low Risk (04/02/2023) Food Insecurity Within the past 12 months, you worried that your food would run out before you got money to buy more:: Never True Within the past 12 months,the food you bought just didn't last and you didn't have enough money to get more: : Never True Transportation Needs: Low Risk (08/29/2023) Transportation In the past 12 months, has lack of transportation kept you from medical appts, meetings, work or from getting things needed for daily living? : No Intimate Partner Violence: Not on file Housing Stability: Low Risk (04/02/2023) Housing Stability What is your housing situation today?: I have housing Think about the place you live. Do you have problems with any of the following? : None of the above Allergies Allergen Reactions Ibuprofen Nausea Only, Nausea And Vomiting and Other Aspirin Rash ROS Positive for: Eyes Negative for: Constitutional, Gastrointestinal, Neurological, Skin, Genitourinary, Musculoskeletal,HENT, Endocrine, Cardiovascular, Respiratory, Psychiatric, Allergic/Imm, Heme/Lymph Last edited by Selma Waite, OD on 07/13/2024 4:05 PM. Base Eye Exam Visual Acuity (Snellen - Linear) Right Left Dist cc 20/40 20/25 Dist ph sc 20/25 Correction: Glasses Last rx in [facility] ([facility] , 10:41 AM) Right Left Pressure 20 20 Pupils Pupils APD Right PERRL None Left PERRL None Visual Young (Counting fingers) Left Right Full Full Extraocular Movement Right Left Full Full Full range of motion, movements are jerky due to poor understanding of instructions Neuro/Psych Oriented x3: Yes Mood/Affect: Normal Dilation Both eyes: 1% Tropicamide @ 10:46 AM Slit Lamp and Fundus Exam External Exam Right Left External Normal Normal Slit Lamp Exam Right Left Lids/Lashes Normal Normal Conjunctiva/Sclera Pinguecula nasal & temporal Pinguecula nasal & temporal Cornea Clear Clear Anterior Chamber Deep and quiet Deep and quiet Iris Flat, no NVI Flat, no NVI Lens 1-2+ NS 1-2+ NS Fundus Exam Right Left Vitreous Clear Clear Disc [place] and Distinct, no NVD [place] and Distinct, no NVD C/D Ratio Vertical 0.40 0.40 C/D Ratio Horizontal 0.40 0.40 Macula Flat and Intact, no CSME Flat and Intact, no CSME Vessels Normal Normal Periphery No holes/breaks/tears 360 degrees, no NVE No holes/breaks/tears 360 degrees, no NVE Refraction Wearing Rx Sphere Cylinder Cat Spring Right +0.75 -0.50 080 Left +1.25 -0.75 104 Manifest Refraction Sphere Cylinder Cat Spring Dist VA Add Right +0.25 -0.75 080 20/25 +2.25 Left +1.25 -0.75 085 20/20-2 +2.25 Near VA Both: 20/20 Final Rx Sphere Cylinder Cat Spring Dist VA Add Right +0.25 -0.75 080 20/25 +2.25 Left +1.25 -0.75 085 20/20-2 +2.25 Expiration Date: 06/24/2026 Comments: Polycarbonate only Assessment/plan: Diagnoses and all orders for this visit: Type 2 diabetes mellitus without ophthalmic manifestations (CMS/[facility]) There is no diabetic retinopathy or macular edema present today in either eye. The patient was educated on the exam findings. The patient was educated to continue controlling blood glucose levels through diet, exercise and medication. The patient was educated on potential complications of diabetic retinopathy, including blindness, if left untreated. The patient was educated on the importance of an annual diabetic eye exam to monitor for diabetic retinopathy. A summary of today's dilated eye exam results will be communicated to the patient's PCP through the shared patient problem list in [facility].Will monitor in 1 year. 2. Age-related nuclear cataract of both eyes No treatment necessary at this time. Patient educated on progressive nature of cataracts and of possibly need for cataract extraction in the future. Will monitor at his next exam. 3. Presbyopia Glasses prescription updated and given. Will monitor at the patient's next full eye exam. Selma Waite, OD 07/13/2024, 4:06 PM Student Name: Nat Yan I attest that I was physically present with the optometry student. I personally saw and evaluated the patient and performed my own history and examination. I have reviewed, verified, and revised the documented findings as necessary and agree with the content and plan as written. Information Manager Source: ___ None __x_ Bilingual Staff ___ Qualified Staff Solidworks Mechanical Designer ___ Telephone Information Manager; ID# ___ Information Manager brought by patient (family member, friend, QUALITY IMPROVEMENT CONSULTANT, etc) ___ In person jewel bearing grinder ___ Ipad Information Manager; ID#: Language Spoken During Exam: Spanish documented in this encounter Plan of Treatment Upcoming Encounters Date Type Department Care Team (Late st Contact Info) Description 08/27/2024 11:30 AM EDT Office Visit [facility] [address] [place] [phone] Nelly Bach MD [address] [place] [address] [phone] documented as of this encounter Visit Diagnoses Diagnosis Type 2 diabetes mellitus without ophthalmic manifestations ([facility])- Primary Age-related nuclear cataract of both eyes Presbyopia documented in this encounter Care Teams Water Reclamation Systems Operator Relationship Specialty Start Date End Date Nelly Bach MD [address] [place] [address] [phone] PCP - General Family Medicine 06/19/18 documented as of this encounter
--- OUTSIDE RECORDS SUMMARY | 2024-07-17 08:35 | XMS_ITS | Encounter Summary ---
Author Organization [employer] Address [address] [place] [address] Care Team Providers Care Tester Regulator Name Role Phone Nelly Bach MD Primary Care Provider + Reason for Visit * Reason Comments Med Refill Encounter Details Date Type Department Care Team (Late st Contact Info) Description 07/04/2024 Refill [facility] [address] [place], [place] [phone] Nelly Bach MD [address] [place], [place] [phone] Social History Tobacco Use Types Packs/Day Years [...] Description 08/27/2024 11:30 AM EDT Office Visit [facility] [address] [place] [phone] Nelly Bach MD [address] [place] [phone] documented as of this encounter Visit Diagnoses Not on filedocumented in this encounter Care Teams Tester Regulator Relationship Specialty Start Date End Date Nelly Bach MD [address] [place] [phone] PCP - General Family Medicine 06/19/18 documented as of this encounter
--- OUTSIDE RECORDS SUMMARY | 2024-07-17 08:36 | XMS_ITS | Clinical Summary ---
Author Organization [facility] Facility Address [address] [address] Care Team Providers Care Board Saw Runner Name Role Phone Nelly Bach MD Primary Care Provider + [phone] Allergies Active Allergy Reactions Criticality Noted Date Comments Ibuprofen Other (see comments) 04/01/2022 Medications amLODIPine (NORVASC) 5 MG tablet Take 5 mg by mouth in the morning. 8 Active acamprosate (CAMPRAL) 333 MG EC tablet Take 2 tablets by mouth in the morning and 2 tablets in the evening and 2 tablets before bedtime. Active omeprazole (PriLOSEC) [address] capsule Take 40 mg by mouth 1 (one) time each day Do not crush or chew. Active simethicone (MYLICON,GAS-X) 180 MG capsule Take 180 mg by mouth every 6 (six) hours if needed for flatulence Active senna (SENOKOT) 8.6 MG tablet Take 1 tablet by mouth 1 (one) time each day Active methadone (DOLOPHINE) 10 MG tablet Take 10 mg by mouth every 6 (six) hours if needed for moderate pain Active PAROXETINE HCL PO Take 1 mg by mouth 1 (one) time each day Active thiamine (VITAMIN B-1) 100 MG tablet Take 100 mg by mouth 1 (one) time each day Active furosemide (LASIX) 20 MG tablet Take 20 mg by mouth in the morning and 20 mg in the evening. Active hydrALAZINE 25 MG tablet Take 25 mg by mouth in the morning and 25 mg in the evening and 25 mg before bedtime. Active spironolactone (ALDACTONE) 25 MG tablet Take 25 mg by mouth 1 (one) time each day Active Active Problems No known active problems Social History Tobacco Use Types Packs/Day Years Used Date Smoking Tobacco: Never Smokeless Tobacco: Never Tobacco Cessation:Counseling Given: Not Answered Alcohol Use Standard Drinks/Week Comments Not Currently 0 (1 standard drink = 0.6 oz pur e alcohol) Sex and Gender Information Value Date Recorded Sex Assigned at Not on file Legal Sex Male 4:57 PM EST Gender Identity Not on file Sexual Orientation Not on file Last Filed Vital Signs Vital Sign Reading Time Taken Comments Blood Pressure 140/84 04/01/2022 4:27 PM EDT Pulse 81 04/01/2022 4:27 PM EDT Temperature - - Respiratory Rate - - Oxygen Saturation 90% 04/01/2022 4:27 PM EDT Inhaled Oxygen Concentration - - Weight 95.6 kg (210 lb 12.8 oz) 04/01/2022 4:27 PM EDT Height - - Body Mass Index - - Plan of Treatment Health Maintenance Due Date Last Done Comments Pneumococcal Vaccine: Pediat rics (0 to 5 Years) and At-Risk Patients (6 to 64 Years) (1 of 2 - PCV) 1968 Colorectal Cancer Screening: Annual FOBT 2011 Colorectal Cancer Screening: Colonoscopy 2011 Colorectal Cancer Screening: Sigmoidoscopy 2011 Diabetes: Hemoglobin A1C 11/01/2021 Diabetes: Ophthalmology Exam 11/01/2021 Diabetes: Pedal Pulse Checked 11/01/2021 Diabetes: Sensory Foot Exam 11/01/2021 Diabetes: Visual Foot Exam 11/01/2021 Influenza Vaccine (#1) 2024 Hepatitis B Vaccine Aged Out No longe r eligible based on patient's age to complete this topic Insurance MEDICAID [place] Care Teams Board Saw Runner Relationship Specialty Start Date End Date Nelly Bach MD [address] [place] [phone] PCP - General 06/19/20
[2024-07-17 08:48] LABS: VBG Base Excess 2.3 mmol/L; VBG HCO3 28 mmol/L (22-26); VBG pCO2 51 mmHg; VBG pH 7.35 (7.32-7.43); VBG pO2 68 mmHg
[2024-07-17 08:48] LABS: Venous Blood Gas Refer to POC result
[2024-07-17] MEDS: Multivitamin TABLET 1 TAB PO (09:05)
[2024-07-17] MEDS: Folic Acid 1 MG TABLET PO (09:05)
[2024-07-17] MEDS: Enoxaparin Sodium 40 MG/0.4 ML SYRINGE SUBCUT (09:05)
[2024-07-17] MEDS: Furosemide 40 MG/4 ML VIAL IVPUSH (09:06)
[2024-07-17] MEDS: Thiamine HCL 100 MG in 0.9 % Sodium Chloride 100 ML 202 MG IV (09:06)
[2024-07-17] MEDS: Spironolactone 25 MG TABLET PO (09:06)
[2024-07-17 09:13] LABS: B Type Natriuretic Peptide 291 pg/mL (<100)
[2024-07-17] MEDS: PHENobarbitaL sodium 130 MG/ML IM ONCE 274 MG IM (09:16)
--- NOTE | 2024-07-17 10:18 | HE.PHANOTE ---
RE METHADONE Patients methadone verification form has been received. Patient is confirmed to be receiving 60 mg of methadone at [facility], last dose 07/16/24
[2024-07-17] MEDS: methADONE HCl 20 MG/2 ML ORAL.CONC 60 MG PO (10:31)
--- NOTE | 2024-07-17 11:22 | PC.NURSE ---
Condom cath placed however slid off while patient was on bed jenkins.Patient cleaned, turned, and repositioned. Patient tremulous but states he does not feel like he is withdrawing that he is always very shaky at home. Friend at bedside.
--- NOTE | 2024-07-17 11:47 | PHA.MEDREC ---
Pharmacy Consult ? Medication Reconciliation Pharmacy has completed the medication reconciliation. Richie spoke to patient to confirm medication list. Per patient, last dose of medications was 2 days ago.
--- NOTE | 2024-07-17 13:32 | PM.EVENT ---
Event Note Date of Service: 07/17/24 Event Note: Day hospitalist update S: weaned off biPAP shortness of breath improved legs swollen tremulous This history was taken in Hungarian from the patient. O: Temp Pulse Resp BP Pulse Ox O2 Del Method O2 Flow Rate 97.6 F 66 16 146/86 H 97 Nasal Cannula 4 07/17/24 12:00 07/17/24 12:00 07/17/24 12:00 07/17/24 12:00 07/17/24 12:00 07/17/24 12:00 07/17/24 12:00 Gen: in no acute distress HEENT: sclera anicteric, moist mucus membranes Neck: supple Lungs: diminished Heart: regular rate and rhythm, no murmurs Abd: soft, non-tender, non-distended Ext: 2+ leg edema Skin: warm/well-perfused Neuro: alert and oriented x3, no focal findings Psych: appropriate affect Labs: BNP 291, venous pH 7.35, venous pCO2 51 A/P: d1 for 64yo M with EtOH cirrhosis, DM2, HTN, GERD, asthma-COPD overlap, hx cardiac arrest presenting with dyspnea + edema, intoxication; initially on BiPAP for hypercarbic respiratory failure leg edema - IV furosemide + PO spironolactone - attributed to cirrhosis but albumin is normal and BNP is high; will check TTE - monitor BNP, I/O, lytes [BMP/Mg] acute hypercarbic respiratory failure due to asthma/COPD overlap with exacerbation - IV methylprednisolone, standing/prn nebs; weaned off BiPAP AUD with withdrawal syndrome - phenobarbital taper, thiamine, folate, Addiction Medicine consult cirrhosis - continue lactulose HLD - statin OUD - methadone, tox screen DM2 - empagliflozin HTN - losartan mood disorder - prazosin, paroxetine VTE ppx - enoxaparin dispo - TBD In my clinical judgment, the patient requires continued hospitalization for the following reasons: IV diuresis Time Spent With Patient Time: Total time managing care of this patient today ____ minutes.
[2024-07-17] MEDS: PHENobarbitaL sodium 130 MG/ML VIAL IM Q3Hx2 205 MG IM ×2 (13:36→16:41)
[2024-07-17 14:20] LABS: Glucose, Whole Blood 239 mg/dL (60-115)
[2024-07-17 16:24] LABS: Glucose, Whole Blood 217 mg/dL (60-115)
[2024-07-17] MEDS: Insulin Lispro 100 UNIT/ML 3 ML VIAL SUBCUT ×2 (16:47→21:27)
--- NOTE | 2024-07-17 17:14 | HO.ADDICT_ITS ---
History of Present Illness Date of Service: 07/17/2024 Chief Complaint: Shortness of Breath Reason for Consult: AUD Sources of Information: patient interviewed and chart reviewed HPI Narrative: Patient is a 64 year old Italian speaking male medically admitted with COPD exacerbation and alcohol withdrawal Patient seen in room 468. He is awake, alert, pleasant and engaged in interview. He reports that he has been drinking alcohol since he was a teenager. States that he is currently drinking a gallon of rum every 3 days in addition to 4 or 5 beers daily. He reports history of severe alcohol withdrawal sx with seizure, and several hospitalizations for comorbid conditions worsened by ongoing alcohol use. He reports most recent period of abstinence was for 2 weeks almost a year ago being discharged from [facility]. He is very aware of how alcohol is impacting his overall health, including cirrhosis of the liver, HTN and COPD. Discussed any strategies that he may have utilized in the past to either decrease or stop drinking and he says, he has only really tried some groups where people talk to each other . Denies any history of JUDI. Denies any admissions to [facility] Reports strong family history of AUD--mother who is . Patient also with dx of OUD He in engaged in treatment via [facility]--reports [facility] administers methadone dose to him daily at home Reports he has been engaged in treatment for 3 years. Current dose is 65mg (per his report) Denies any withdrawal sx, c/o abdominal discomfort (ascites) Appearing overall comfortable UDS +fentanyl, opiates and methadone Review of Systems Constitutional: Reports as per HPI and Reports no additional constitutional complaints Diagnostics Vital Signs (24Hr): Vital Signs - 24 hr 07/16/24 21:33 07/16/24 22:07 07/16/24 22:14 Temperature 98.2 F Pulse Rate 72 70 Respiratory Rate 20 21 H Blood Pressure 174/63 H 165/65 H Pulse Oximetry 96 Oxygen Delivery Method Room Air Oxygen Flow Rate 07/16/24 23:37 07/17/24 00:50 07/17/24 00:59 Temperature 98.5 F Pulse Rate 65 Respiratory Rate 16 21 H 16 Blood Pressure 131/87 Pulse Oximetry 96 Oxygen Delivery Method Nasal Cannula Oxygen Flow Rate 4 07/17/24 01:10 07/17/24 03:14 07/17/24 03:32 Temperature 98.5 F 97.3 F Pulse Rate 66 63 Respiratory Rate 16 18 14 Blood Pressure 166/94 H 141/79 H Pulse Oximetry 98 97 Oxygen Delivery Method CPAP BiPAP Oxygen Flow Rate 07/17/24 06:46 07/17/24 08:11 07/17/24 08:29 Temperature 97.5 F 98.6 F Pulse Rate 79 64 65 Respiratory Rate 16 16 16 Blood Pressure 174/83 H 174/83 H Pulse Oximetry 95 97 Oxygen Delivery Method Room Air CPAP Oxygen Flow Rate 07/17/24 09:06 07/17/24 09:06 07/17/24 10:31 Temperature Pulse Rate 68 Respiratory Rate 19 Blood Pressure 174/83 H 174/83 H 174/83 H Pulse Oximetry 94 Oxygen Delivery Method CPAP Oxygen Flow Rate 07/17/24 12:00 07/17/24 13:48 07/17/24 15:59 Temperature 97.6 F 97.9 F Pulse Rate 66 74 60 Respiratory Rate 16 18 20 Blood Pressure 146/86 H 167/72 H Pulse Oximetry 97 97 Oxygen Delivery Method Nasal Cannula Nasal Cannula Oxygen Flow Rate 4 2 BMI result Body Mass Index 39.0 Labs 07/17/24 06:09 07/17/24 06:09 Labs: Laboratory Results - last 48 hr 07/16/24 07/16/24 07/16/24 21:43 21:47 23:41 WBC 7.6 RBC 4.09 L Hgb 12.2 L Hct 38.3 L MCV 93.6 MCH 29.8 MCHC 31.9 RDW 15.8 Plt Count 151 L MPV 9.4 Immature Gran % (Auto) 0.3 Neut % (Auto) 56.6 Lymph % (Auto) 30.9 Bracken % (Auto) 7.5 Eos % (Auto) 3.7 Baso % (Auto) 1.0 Lymph # (Auto) 2.4 Bracken # (Auto) 0.6 Eos # (Auto) 0.3 Baso # (Auto) 0.1 Abs Immat Gran (auto) 0.02 Absolute Neuts (auto) 4.3 Absolute Nucleated RBC 0.000 Nucleated RBC % (auto) 0.0 PT 10.6 L INR 0.9 VBG pH 7.28 L VBG pCO2 61 VBG pO2 47 VBG HCO3 29 H VBG O2 Saturation 66.0 VBG Base Excess 1.4 Sodium 143 Potassium 4.7 Chloride 107 Carbon Dioxide 23 Anion Gap 18 BUN 19 H Creatinine 1.31 Estim Creat Clear Calc 72.4 Estimated GFR 55 POC Glucose Random Glucose 171 H Calcium 8.9 D Magnesium Total Bilirubin 0.4 AST 57 H ALT 41 H Alkaline Phosphatase 160 H Troponin I High Sens 14.9 D 20.1 B-Natriuretic Peptide 325 H Total Protein 8.3 H Albumin 4.0 Ethyl Alcohol 316 H* Influenza Type A (PCR) NEGATIVE Influenza Type B (PCR) NEGATIVE RSV RNA Qual (PCR) NEGATIVE SARS-CoV-2 RNA (RT-PCR) NEGATIVE 07/17/24 07/17/24 07/17/24 06:09 08:38 08:42 WBC 4.4 L RBC 4.06 L Hgb 11.9 L Hct 37.7 L MCV 92.9 MCH 29.3 MCHC 31.6 RDW 15.9 Plt Count 125 L MPV 9.1 L Immature Gran % (Auto) 0.5 H Neut % (Auto) 89.1 H Lymph % (Auto) 8.8 L Bracken % (Auto) 0.7 L Eos % (Auto) 0.2 Baso % (Auto) 0.7 Lymph # (Auto) 0.4 L Bracken # (Auto) 0.0 L Eos # (Auto) 0.0 Baso # (Auto) 0.0 Abs Immat Gran (auto) 0.02 Absolute Neuts (auto) 4.0 Absolute Nucleated RBC 0.000 Nucleated RBC % (auto) 0.0 PT INR VBG pH 7.35 VBG pCO2 51 VBG pO2 68 VBG HCO3 28 H VBG O2 Saturation 89.0 VBG Base Excess 2.3 Sodium 144 Potassium 4.8 Chloride 107 Carbon Dioxide 25 Anion Gap 17 BUN 19 H Creatinine 1.12 Estim Creat Clear Calc 84.7 Estimated GFR > 60 POC Glucose Random Glucose 206 H Calcium 9.0 Magnesium 1.8 Total Bilirubin 0.5 AST 48 H ALT 36 Alkaline Phosphatase 156 H Troponin I High Sens B-Natriuretic Peptide 291 H Total Protein 8.2 H Albumin 3.9 Ethyl Alcohol Influenza Type A (PCR) Influenza Type B (PCR) RSV RNA Qual (PCR) SARS-CoV-2 RNA (RT-PCR) 07/17/24 07/17/24 13:32 16:10 WBC RBC Hgb Hct MCV MCH MCHC RDW Plt Count MPV Immature Gran % (Auto) Neut % (Auto) Lymph % (Auto) Bracken % (Auto) Eos % (Auto) Baso % (Auto) Lymph # (Auto) Bracken # (Auto) Eos # (Auto) Baso # (Auto) Abs Immat Gran (auto) Absolute Neuts (auto) Absolute Nucleated RBC Nucleated RBC % (auto) PT INR VBG pH VBG pCO2 VBG pO2 VBG HCO3 VBG O2 Saturation VBG Base Excess Sodium Potassium Chloride Carbon Dioxide Anion Gap BUN Creatinine Estim Creat Clear Calc Estimated GFR POC Glucose 239 H 217 H Random Glucose Calcium Magnesium Total Bilirubin AST ALT Alkaline Phosphatase Troponin I High Sens B-Natriuretic Peptide Total Protein Albumin Ethyl Alcohol Influenza Type A (PCR) Influenza Type B (PCR) RSV RNA Qual (PCR) SARS-CoV-2 RNA (RT-PCR) Mental Status Exam Mental Status Exam Level of Consciousness: Awake, Appropriate and Alert Patient Behavior: Appropriate and Talkative Mood Description: Calm Affect Description: Calm Speech Pattern: Clear Thought Process: Intact Thought Content: positive for Intact and positive for Circumstantial Judgement: Fair Medications Medications Current Medications Acetaminophen (Acetaminophen 325 Mg Tablet) 650 mg PO Q6H PRN PRN Reason: Pain, Mild 1-3,fever,headache Albuterol Sulfate (Albuterol Sulfate (0.083%) 2.5 Mg/3 Ml Vial.Neb) 2.5 mg INHALE RQ4H PRN PRN Reason: Shortness of Breath/Wheezing Albuterol/Ipratropium (Albuterol/Iprat 2.5/0.5mg 3 Ml Ampul.Neb) 3 ml INHALE RQ6H WHILE AWAKE [facility] Last Admin: 07/17/24 13:47 Dose: 3 ml Atorvastatin Calcium (Atorvastatin Calcium 80 Mg Tablet) 80 mg PO BEDTIME [facility] Calcium Carbonate (Calcium Carbonate 750 Mg Tab.Chew) 750 mg PO Q4H PRN PRN Reason: Heartburn Dextrose (Dextrose 50 % 25 Gm/50 Ml Syringe) 25 gm IVPUSH Q15M PRN; Protocol PRN Reason: per Hypoglycemia Standing Ord. Empagliflozin (Empagliflozin 25 Mg Tablet) 25 mg PO DAILY [facility] Enoxaparin Sodium (Enoxaparin Sodium 40 Mg/0.4 Ml Syringe) 40 mg SUBCUT Q24H [facility] Last Admin: 07/17/24 09:05 Dose: 40 mg Folic Acid (Folic Acid 1 Mg Tablet) 1 mg PO DAILY [facility] Last Admin: 07/17/24 09:05 Dose: 1 mg Furosemide (Furosemide 40 Mg/4 Ml Vial) 40 mg IVPUSH DAILY [facility]; Protocol Last Admin: 07/17/24 09:06 Dose: 40 mg Glucose (Glucose Gel 15 Gm Gel..Gram.) 15 gm PO Q15M PRN; Protocol PRN Reason: per Hypoglycemia Standing Ord. Thiamine HCl 100 mg/ Sodium (Chloride) 101 mls @ 202 mls/hr IV DAILY [facility] Last Infusion: 07/17/24 10:54 Dose: Infused Insulin Human Lispro (Insulin Lispro 100 Unit/Ml 3 Ml Vial) 0 unit SUBCUT QIDACHS [facility]; Protocol Last Admin: 07/17/24 16:47 Dose: 4 unit Lactulose (Lactulose 20 Gm/30 Ml Solution) 20 gm PO BID [facility] Losartan Potassium (Losartan Potassium 25 Mg Tablet) 25 mg PO DAILY [facility]; Protocol Magnesium Hydroxide (Milk Of Magnesia 30 Ml Oral.Susp) 30 ml PO DAILY PRN PRN Reason: Constipation Melatonin (Melatonin 3 Mg Tablet) 6 mg PO BEDTIME PRN PRN Reason: Insomnia Methadone HCl (Methadone Hcl 20 Mg/2 Ml Oral.Conc) 60 mg PO DAILY@0800 [facility] Last Admin: 07/17/24 10:31 Dose: 60 mg Methylprednisolone Sodium Succinate (Methylprednisolone Sod Succ 40 Mg/Ml Vial) 40 mg IVPUSH Q12H [facility] Last Admin: 07/17/24 07:23 Dose: 40 mg Multivitamins/Vitamin C (Multivitamin Tablet) 1 tab PO DAILY [facility] Last Admin: 07/17/24 09:05 Dose: 1 tab Omeprazole (Omeprazole 40 Mg Capsule.Dr) 40 mg PO DAILY@0630 [facility] Ondansetron HCl (Ondansetron Hcl 4 Mg/2 Ml Vial) 4 mg IVPUSH Q8H PRN PRN Reason: Nausea and Vomiting Paroxetine HCl (Paroxetine Hcl 20 Mg Tablet) 20 mg PO BEDTIME [facility] Pharmacy Consult (Consult Rx Etoh Phenob Im/Po) 1 each MISCELLANE ONCE PRN; Protocol PRN Reason: Consult order Phenobarbital (Phenobarbital 15 Mg Tablet) 45 mg PO BID [facility]; Protocol Stop: 07/19/24 21:01 Phenobarbital (Phenobarbital 15 Mg Tablet) 15 mg PO BID [facility]; Protocol Stop: 07/21/24 21:01 Phenobarbital (Phenobarbital 15 Mg Tablet) 15 mg PO DAILY [facility]; Protocol Stop: 07/23/24 09:01 Polyethylene Glycol (Polyethylene Glycol 3350 17 Gm Powd.Pack) 17 gm PO DAILY PRN PRN Reason: Constipation Prazosin HCl (Prazosin Hcl 1 Mg Capsule) 4 mg PO BEDTIME [facility]; Protocol Senna (Sennosides 8.6 Mg Tablet) 17.2 mg PO BEDTIME PRN PRN Reason: Constipation Sodium Chloride (0.9 % Sodium Chloride Flush 3 Ml Syringe) 3 ml IVFLUSH QSHIFT [facility] Last Admin: 07/17/24 16:40 Dose: 3 ml Spironolactone (Spironolactone 25 Mg Tablet) 25 mg PO DAILY [facility]; Protocol Last Admin: 07/17/24 09:06 Dose: 25 mg Vitamin D (Cholecalciferol (Vitamin D3) 25 Mcg Tablet) 100 mcg PO DAILY [facility] Allergies Allergies Allergy/AdvReac Type Severity Reaction Status Date / Time aspirin [ASPIRIN] Allergy Unknown RASH Verified 07/16/24 21:39 ibuprofen Allergy Unknown nausea and Verified 07/16/24 21:39 vomiting Assessment & Plan Assessment & Plan (1) Alcohol use disorder, severe, dependence: Status: Acute Code(s): F10.20 - Alcohol dependence, uncomplicated Assessment and Plan: * phenobarb protocol in place to manage any withdrawal sx (CIWA scores have been 4 all day today) * reinforced decreasing current use, and discussed strategies to do so including JUDI (Alec). Patient verbalizing that he would like to think about it, but is interested. Will follow up in Friday if patient is still admitted * Discussed increased risk of overdose with heavy alcohol use and methadone--take home narcan at discharge * encouraged patient to discuss alcohol use with his providers at [facility] Total time managing care of this patient today _30___ minutes. [facility] Past Medical History Medical History Chronic idiopathic constipation GERD (gastroesophageal reflux disease) Opioid use disorder Asthma-COPD overlap syndrome Morbid obesity Chronic hypoxic respiratory failure Restrictive lung disease Obesity hypoventilation syndrome DARRIAN treated with BiPAP Chronic respiratory failure Acute respiratory failure with hypoxia History of opiate therapy Morbid obesity due to excess calories CKD (chronic kidney disease) stage 3, GFR 30-59 ml/min Liver cirrhosis DARRIAN (obstructive sleep apnea) Chronic kidney disease Congestive heart failure Diabetes Family History Family History Mother Cancer Diabetes Surgical History Surgical History No pertinent past surgical history Social History Social History Household Members: Spouse Housing: House Do you presently have visiting nurse or other home services: Yes Alcohol intake: current Alcohol intake frequency: 3 or more drinks per day Alcohol type: hard liquor Comment: restraints Patient Tobacco Use Status: Never used Tobacco e-Cigarette/Vaping Use: Never Used Substance Use Type: Heroin service: No Current occupational status: disabled
[2024-07-17 17:29] LABS: Amphetamine Screen Urine Not Detected (Not Detect); Barbiturates, Urine POSITIVE (Not Detect); Benzodiazepines Screen Urine Not Detected (Not Detect); Buprenorphine Scr Not Detected (Not Detect); Cannabinoid Screen Urine Not Detected (Not Detect); Cocaine Screen Urine Not Detected (Not Detect); Fentanyl, urine POSITIVE (Not Detect); Methadone Screen, Urine Positive (Not Detect); Opiate Screen Urine POSITIVE (Not Detect); Oxycodone Screen Urine Not Detected (Not Detect); Phencyclidine Screen Urine Not Detected (Not Detect)
[2024-07-17] MEDS: PARoxetine HCL 20 MG TABLET PO (19:56)
[2024-07-17] MEDS: Atorvastatin Calcium 80 MG TABLET PO (19:56)
[2024-07-17] MEDS: Lactulose 20 GM/30 ML SOLUTION PO (19:56)
[2024-07-17] MEDS: Prazosin HCL 1 MG CAPSULE 4 MG PO (19:59)
[2024-07-17 20:44] LABS: Glucose, Whole Blood 218 mg/dL (60-115)
[2024-07-18] VITALS (11 sets, daily range): BP systolic 131–181; BP diastolic 65–80; PULSE 53–82; RESP 14–20; TEMP 36.3–37.1; O2SAT 94–98
[2024-07-18] MEDS: Omeprazole 40 MG CAPSULE.DR PO (05:58)
[2024-07-18] MEDS: methylPREDNISolone Sod Succ 40 MG/ML VIAL IVPUSH (06:01)
[2024-07-18 06:45] LABS: Venous Blood Gas Refer to POC result
[2024-07-18 06:47] LABS: VBG Base Excess 7.9 mmol/L; VBG HCO3 32 mmol/L (22-26); VBG pCO2 43 mmHg; VBG pH 7.47 (7.32-7.43); VBG pO2 110 mmHg
[2024-07-18 07:07] LABS: Anion Gap 14 (12-20); Blood Urea Nitrogen 27 mg/dL (9-16); Calcium 9.1 mg/dL (8.4-10.2); Carbon Dioxide 28 mmol/L (22-29); Chloride 102 mmol/L (96-108); Creatinine Clr Calc Pharmacy 88.7; Estimated Glomerular Filt Rate > 60; Glucose Random 185 mg/dL (60-115); Magnesium 2.1 mg/dL (1.6-2.6); Sodium 139 mmol/L (135-145)
[2024-07-18 07:11] LABS: B Type Natriuretic Peptide 936 pg/mL (<100)
[2024-07-18 07:44] LABS: Glucose, Whole Blood 171 mg/dL (60-115)
[2024-07-18 07:45] LABS: Hematocrit 38.6 % (42.0-52.0); Hemoglobin 12.1 g/dl (14.0-18.0); Mean Corpuscular HGB Conc 31.3 g/dl (31.0-36.0); Mean Corpuscular Hemoglobin 29.3 pg (27.0-33.0); Mean Corpuscular Volume 93.5 fL (80.0-98.0); Mean Platelet Volume 9.1 fL (9.4-12.4); Platelet Count 117 X10*3/uL (160-400); Red Blood Count 4.13 X10*6/uL (4.60-5.80); Red Cell Distribution Width 15.6 % (11.0-16.0); White Blood Count 10.1 X10*3/uL (4.8-10.8)
[2024-07-18] MEDS: Albuterol/Iprat 2.5/0.5MG 3 ML AMPUL.NEB INHALE ×3 (08:39→20:55)
[2024-07-18] MEDS: Insulin Lispro 100 UNIT/ML 3 ML VIAL SUBCUT ×3 (08:48→22:56)
[2024-07-18] MEDS: 0.9 % Sodium Chloride Flush 3 ML SYRINGE IVFLUSH ×3 (08:49→22:56)
[2024-07-18] MEDS: methADONE HCl 20 MG/2 ML ORAL.CONC 60 MG PO (08:58)
[2024-07-18] MEDS: PHENobarbitaL 15 MG TABLET 45 MG PO ×2 (08:59→22:55)
[2024-07-18] MEDS: Multivitamin TABLET 1 TAB PO (09:01)
[2024-07-18] MEDS: Losartan Potassium 25 MG TABLET PO (09:01)
[2024-07-18] MEDS: Spironolactone 25 MG TABLET PO (09:01)
[2024-07-18] MEDS: Cholecalciferol (Vitamin D3) 25 MCG TABLET 100 MCG PO (09:01)
[2024-07-18] MEDS: predniSONE 20 MG TABLET 40 MG PO (09:01)
[2024-07-18] MEDS: Folic Acid 1 MG TABLET PO (09:01)
[2024-07-18] MEDS: Empagliflozin 25 MG TABLET PO (09:02)
[2024-07-18] MEDS: Enoxaparin Sodium 40 MG/0.4 ML SYRINGE SUBCUT (09:08)
[2024-07-18] MEDS: Furosemide 40 MG/4 ML VIAL IVPUSH (09:10)
--- NOTE | 2024-07-18 10:41 | MHC.CM.PN ---
CM MET WITH PT WITH A [facility] PT REPORTS HE LIVES WITH HIS AND [id number] HE HAS DAILY [employer] PT HAS HOME A CPAP AND HOME O2, HE IS UNSURE OF PROVIDER HE ALSO USES A WALKER FOR AMBULATION COPY OF HCP REQUESTED PCP: MAT JURADO DCP: HOME [facility]ME [facility] TRANSPORT
--- NOTE | 2024-07-18 14:52 | HO.PM.IMPN ---
Subjective Subjective Date of Service: 07/18/24 Interval History: dyspnea improving now on room air negative 2.4L thus far This history was taken in Turkish from the patient. Review of Systems Review of Systems: Yes all other systems are reviewed and are negative Physical Exam Vital Signs: Vital Signs: Last Vital Signs Temp 98.1 F 07/18/24 12:00 Pulse 82 07/18/24 12:00 Resp 20 07/18/24 12:00 BP 146/65 H 07/18/24 12:00 Pulse Ox 94 07/18/24 12:00 O2 Del Method Room Air 07/18/24 12:00 O2 Flow Rate 2 07/18/24 07:40 Oxygen Flow Rate 4 07/16/24 21:33 BMI result Body Mass Index 39.0 Gen: in no acute distress HEENT: sclera anicteric, moist mucus membranes Neck: supple Lungs: diminished Heart: regular rate and rhythm, no murmurs Abd: soft, non-tender, non-distended Ext: 2+ leg edema Skin: warm/well-perfused Neuro: alert and oriented x3, no focal findings Psych: appropriate affect Objective Data Active Medications Acetaminophen (Acetaminophen 325 Mg Tablet) 650 mg PO Q6H PRN PRN Reason: Pain, Mild 1-3,fever,headache Albuterol Sulfate (Albuterol Sulfate (0.083%) 2.5 Mg/3 Ml Vial.Neb) 2.5 mg INHALE RQ4H PRN PRN Reason: Shortness of Breath/Wheezing Albuterol/Ipratropium (Albuterol/Iprat 2.5/0.5mg 3 Ml Ampul.Neb) 3 ml INHALE RQ6H WHILE AWAKE [facility] Last Admin: 07/18/24 08:39 Dose: 3 ml Documented By: SCOT Atorvastatin Calcium (Atorvastatin Calcium 80 Mg Tablet) 80 mg PO BEDTIME [facility] Last Admin: 07/17/24 19:56 Dose: 80 mg Documented By: JEAN Calcium Carbonate (Calcium Carbonate 750 Mg Tab.Chew) 750 mg PO Q4H PRN PRN Reason: Heartburn Dextrose (Dextrose 50 % 25 Gm/50 Ml Syringe) 25 gm IVPUSH Q15M PRN; Protocol PRN Reason: per Hypoglycemia Standing Ord. Empagliflozin (Empagliflozin 25 Mg Tablet) 25 mg PO DAILY [facility] Last Admin: 07/18/24 09:02 Dose: 25 mg Documented By: JUSTIN Enoxaparin Sodium (Enoxaparin Sodium 40 Mg/0.4 Ml Syringe) 40 mg SUBCUT Q24H [facility] Last Admin: 07/18/24 09:08 Dose: 40 mg Documented By: JUSTIN Folic Acid (Folic Acid 1 Mg Tablet) 1 mg PO DAILY [facility] Last Admin: 07/18/24 09:01 Dose: 1 mg Documented By: JUSTIN Furosemide (Furosemide 40 Mg/4 Ml Vial) 40 mg IVPUSH DAILY [facility]; Protocol Last Admin: 07/18/24 09:10 Dose: 40 mg Documented By: JUSTIN Glucose (Glucose Gel 15 Gm Gel..Gram.) 15 gm PO Q15M PRN; Protocol PRN Reason: per Hypoglycemia Standing Ord. Thiamine HCl 100 mg/ Sodium (Chloride) 101 mls @ 202 mls/hr IV DAILY [facility] Last Admin: 07/18/24 10:04 Dose: Not Given Documented By: JUSTIN Non-Admin Reason: changing to PO Insulin Human Lispro (Insulin Lispro 100 Unit/Ml 3 Ml Vial) 0 unit SUBCUT QIDACHS [facility]; Protocol Last Admin: 07/18/24 13:46 Dose: Not Given Documented By: JUSTIN Non-Admin Reason: Physician Approved Lactulose (Lactulose 20 Gm/30 Ml Solution) 20 gm PO BID [facility] Last Admin: 07/18/24 10:03 Dose: Not Given Documented By: JUSTIN Non-Admin Reason: Patient Refused Losartan Potassium (Losartan Potassium 25 Mg Tablet) 25 mg PO DAILY [facility]; Protocol Last Admin: 07/18/24 09:01 Dose: 25 mg Documented By: JUSTIN Magnesium Hydroxide (Milk Of Magnesia 30 Ml Oral.Susp) 30 ml PO DAILY PRN PRN Reason: Constipation Melatonin (Melatonin 3 Mg Tablet) 6 mg PO BEDTIME PRN PRN Reason: Insomnia Methadone HCl (Methadone Hcl 20 Mg/2 Ml Oral.Conc) 60 mg PO DAILY@0800 [facility] Last Admin: 07/18/24 08:58 Dose: 60 mg Documented By: JUSTIN Co-signed By: LINDA Multivitamins/Vitamin C (Multivitamin Tablet) 1 tab PO DAILY [facility] Last Admin: 07/18/24 09:01 Dose: 1 tab Documented By: JUSTIN Omeprazole (Omeprazole 40 Mg Capsule.Dr) 40 mg PO DAILY@0630 [facility] Last Admin: 07/18/24 05:58 Dose: 40 mg Documented By: JEAN Ondansetron HCl (Ondansetron Hcl 4 Mg/2 Ml Vial) 4 mg IVPUSH Q8H PRN PRN Reason: Nausea and Vomiting Paroxetine HCl (Paroxetine Hcl 20 Mg Tablet) 20 mg PO BEDTIME [facility] Last Admin: 07/17/24 19:56 Dose: 20 mg Documented By: JEAN Pharmacy Consult (Consult Rx Etoh Phenob Im/Po) 1 each MISCELLANE ONCE PRN; Protocol PRN Reason: Consult order Phenobarbital (Phenobarbital 15 Mg Tablet) 45 mg PO BID [facility]; Protocol Stop: 07/19/24 21:01 Last Admin: 07/18/24 08:59 Dose: 45 mg Documented By: JUSTIN Phenobarbital (Phenobarbital 15 Mg Tablet) 15 mg PO BID [facility]; Protocol Stop: 07/21/24 21:01 Phenobarbital (Phenobarbital 15 Mg Tablet) 15 mg PO DAILY [facility]; Protocol Stop: 07/23/24 09:01 Polyethylene Glycol (Polyethylene Glycol 3350 17 Gm Powd.Pack) 17 gm PO DAILY PRN PRN Reason: Constipation Prazosin HCl (Prazosin Hcl 1 Mg Capsule) 4 mg PO BEDTIME [facility]; Protocol Last Admin: 07/17/24 19:59 Dose: 4 mg Documented By: JEAN Prednisone (Prednisone 20 Mg Tablet) 40 mg PO DAILY [facility] Stop: 07/20/24 09:01 Last Admin: 07/18/24 09:01 Dose: 40 mg Documented By: JUSTIN Senna (Sennosides 8.6 Mg Tablet) 17.2 mg PO BEDTIME PRN PRN Reason: Constipation Sodium Chloride (0.9 % Sodium Chloride Flush 3 Ml Syringe) 3 ml IVFLUSH QSHIFT [facility] Last Admin: 07/18/24 08:49 Dose: 3 ml Documented By: JUSTIN Spironolactone (Spironolactone 25 Mg Tablet) 25 mg PO DAILY [facility]; Protocol Last Admin: 07/18/24 09:01 Dose: 25 mg Documented By: JUSTIN Vitamin D (Cholecalciferol (Vitamin D3) 25 Mcg Tablet) 100 mcg PO DAILY [facility] Last Admin: 07/18/24 09:01 Dose: 100 mcg Documented By: JUSTIN Labs 07/18/24 07:29 07/18/24 06:36 Labs: Laboratory Results - last 24 hr 07/17/24 07/17/24 07/17/24 14:45 16:10 20:40 MCV MCH MCHC RDW Plt Count MPV Absolute Nucleated RBC Nucleated RBC % (auto) VBG pH VBG pCO2 VBG pO2 VBG HCO3 VBG O2 Saturation VBG Base Excess Anion Gap Estim Creat Clear Calc Estimated GFR POC Glucose 217 H 218 H Random Glucose Calcium Magnesium B-Natriuretic Peptide Urine Opiates Screen POSITIVE H Ur Buprenorphine Scrn Not Detected Ur Oxycodone Screen Not Detected Urine Methadone Screen Positive H Urine Fentanyl Screen POSITIVE H Ur Barbiturates Screen POSITIVE H Ur Phencyclidine Scrn Not Detected Ur Amphetamines Screen Not Detected U Benzodiazepines Scrn Not Detected Urine Cocaine Screen Not Detected U Marijuana (THC) Screen Not Detected 07/18/24 07/18/24 07/18/24 06:36 06:42 07:29 MCV 93.5 MCH 29.3 MCHC 31.3 RDW 15.6 Plt Count 117 L MPV 9.1 L Absolute Nucleated RBC 0.000 Nucleated RBC % (auto) 0.0 VBG pH 7.47 H VBG pCO2 43 VBG pO2 110 VBG HCO3 32 H VBG O2 Saturation 99.0 VBG Base Excess 7.9 Anion Gap 14 Estim Creat Clear Calc 88.7 Estimated GFR > 60 POC Glucose Random Glucose 185 H Calcium 9.1 Magnesium 2.1 B-Natriuretic Peptide 936 H Urine Opiates Screen Ur Buprenorphine Scrn Ur Oxycodone Screen Urine Methadone Screen Urine Fentanyl Screen Ur Barbiturates Screen Ur Phencyclidine Scrn Ur Amphetamines Screen U Benzodiazepines Scrn Urine Cocaine Screen U Marijuana (THC) Screen 07/18/24 07:39 MCV MCH MCHC RDW Plt Count MPV Absolute Nucleated RBC Nucleated RBC % (auto) VBG pH VBG pCO2 VBG pO2 VBG HCO3 VBG O2 Saturation VBG Base Excess Anion Gap Estim Creat Clear Calc Estimated GFR POC Glucose 171 H Random Glucose Calcium Magnesium B-Natriuretic Peptide Urine Opiates Screen Ur Buprenorphine Scrn Ur Oxycodone Screen Urine Methadone Screen Urine Fentanyl Screen Ur Barbiturates Screen Ur Phencyclidine Scrn Ur Amphetamines Screen U Benzodiazepines Scrn Urine Cocaine Screen U Marijuana (THC) Screen Assessment and Plan (1) Asthma-COPD overlap syndrome: Status: Acute Plan d2 for 64yo M with EtOH cirrhosis, DM2, HTN, GERD, asthma-COPD overlap, hx cardiac arrest presenting with dyspnea + edema, EtOH intoxication; initially on BiPAP for hypercarbic respiratory failure leg edema - continue IV furosemide + PO spironolactone - initially attributed to cirrhosis but albumin is normal and BNP is high; will check TTE to assess for heart failure - monitor BNP, I/O, lytes [BMP/Mg]. Negative 2.4L thus far acute hypercarbic respiratory failure due to asthma/COPD overlap with exacerbation - continue IV methylprednisolone, standing/prn nebs; weaned off BiPAP to room air now AUD with withdrawal syndrome - continue phenobarbital taper, thiamine, folate, Addiction Medicine consult cirrhosis - continue lactulose HLD - statin OUD - methadone, tox screen POSITIVE for fentanyl; Addiction Medicine consultation DM2 - empagliflozin HTN - losartan mood disorder - prazosin, paroxetine VTE ppx - enoxaparin dispo - PT eval in AM In my clinical judgment, the patient requires continued hospitalization for the following reasons: IV diuresis, HF workup Total time managing care of this patient today: 45 minutes. Quality Stroke Does the patient have a stroke diagnosis?: No VTE Prior VTE?: No VTE Risk Level:: Medical - moderate - high VTE Device Contraindication: N/A - Device Ordered VTE Drug Contraindication: N/A - Med Ordered
[2024-07-18 20:05] LABS: Glucose, Whole Blood 157 mg/dL (60-115)
[2024-07-18 20:05] LABS: Glucose, Whole Blood 216 mg/dL (60-115)
[2024-07-18] MEDS: Prazosin HCL 1 MG CAPSULE 4 MG PO (22:55)
[2024-07-18] MEDS: Lactulose 20 GM/30 ML SOLUTION PO (22:56)
[2024-07-18] MEDS: Atorvastatin Calcium 80 MG TABLET PO (22:56)
[2024-07-18] MEDS: PARoxetine HCL 20 MG TABLET PO (22:56)
[2024-07-19] VITALS (10 sets, daily range): BP systolic 127–160; BP diastolic 63–81; PULSE 57–93; RESP 16–20; TEMP 36.3–37; O2SAT 93–98
[2024-07-19] MEDS: Omeprazole 40 MG CAPSULE.DR PO (05:57)
--- NOTE | 2024-07-19 07:00 | CA_ITS ---
Transthoracic Echocardiogram Patient (Last, First, Middle): Isael Britton A Gender: Male Date of : 1960 Age: 64 Procedure Date: 07/19/2024 Procedure Type: Transthoracic Echocardiogram Location: [facility] [place] Height: 172.72 cm Weight: 116.12 kg BSA: 2.27 m2 Heart Rate: 66 bpm BP: 174 / 83 mmHg Treasurer: SB Referring MD: Ismael Millard MD Pensionholder Information Clerk: Isai Sampson MD Symptoms: r/o chf Study Quality: Technically Difficult, contrast ECG Rhythm: Sinus Conclusions: - 1. Technically limited study 2. Normal LV ejection fraction of 55-60% with mild LVH with grade 2 diastolic dysfunction 3. Limited evaluation of cardiac valves Findings Procedure Information Contrast agent, definity, is being given per protocol without apparent complications. The quality of the study was technically difficult. The study quality is limited by patients body habitus. Left Ventricle Normal left ventricular size and systolic function. There is mildly increased left ventricular wall thickness. The visually estimated ejection fraction is between 55-60%. Spectral Doppler is indicative of a pseudonormal filling pattern. E/E prime ratio is >15, consistent with elevated filling pressures. Evidence suggests grade II (moderate) diastolic dysfunction. Right Ventricle The right ventricle was not well visualized. Atria The left atrium was not well visualized. Interatrial shunt cannot be excluded. The right atrium was not well visualized. Aortic Valve The aortic valve was not well visualized. There is no aortic valve stenosis. There is no aortic valve regurgitation. Mitral Valve The mitral valve was not well visualized. There is trace mitral valve regurgitation. There is no mitral valve stenosis. Pulmonic Valve The pulmonic valve was not well visualized. Tricuspid Valve The tricuspid valve was not well visualized. Tricuspid regurgitation envelope is inadequate for calculation of right ventricular systolic pressure. Indeterminate right atrial pressure. Great Vessels The aorta was not well visualized. The pulmonary artery was not well visualized. Venous The inferior vena cava is mildly dilated. Pericardium/Pleural The pericardium was not well visualized. Measurements 2D Linear Measurements IVSd: 1.21 0.6-0.9/0.6-1.0 cm LA Diam: 4.30 2.7-3.8/3.0-4.0 cm LAIDs Index: 1.89 1.5-2.3 cm/m2 LVOT Diam: 2.30 3.0+(-)1.3 cm 2D Systolic Function EF 4C: 50.70 >55% EF 2C: 63.90 >55% EF BiP: 57.40 >55% Mitral Valve MV Pk E: 1.16 MV PK A: 0.67 MV Decel Time: 139.00 E/A: 1.70 E'Lateral: 6.65 E'Medial: 4.33 E/E' Med: 26.80 E/E' Lat: 17.40 PHT: 41.00 MVA PHT: 5.37 Decel [place]: 8.34 Aortic Valve AoV Pk Javi: 1.48 AoV Pk Grad: 9.00 FREDRICK: 2.60 LVOT LVOT Pk Javi: 1.03 LVOT Mn Javi: 0.63 LVOT VTI: 0.22 LVOT Pk Grad: 4.00 LVOT Mn Grad: 2.00 LVOT Diam: 2.30 LVOT Area: 4.15 Diastolic Function MV Pk E: 1.16 MV Pk A: 0.67 E/A: 1.70 E'Medial: 4.33 E/E' Med: 26.80 E' Laterial: 6.65 E/E' Lat: 17.40 Right Ventricle TAPSE (mm): 26.90 TVS' Javi: 16.10 Tricuspid Valve RA Press: 15.00 Great Vessels Aorta Sinus of Valsalva: 3.50 2.0-3.5 cm Ao Asc: 3.30 2.1-3.4 cm Pulmonary Veins Pulm Vein S/D 0.80 Pulmonary Valve PV Pk Javi: 0.96 Peak PV Grad: 4.00 Updated in Other Vendor System with Status of Final Isai Sampson MD electronically signed on 07/19/2024 11:53:58 AM with status of Final
[2024-07-19 07:05] LABS: Glucose, Whole Blood 179 mg/dL (60-115)
[2024-07-19 07:30] LABS: Anion Gap 12 (12-20); Blood Urea Nitrogen 40 mg/dL (9-16); Calcium 9.2 mg/dL (8.4-10.2); Carbon Dioxide 35 mmol/L (22-29); Chloride 99 mmol/L (96-108); Creatinine Clr Calc Pharmacy 75.3; Estimated Glomerular Filt Rate 58; Glucose Random 106 mg/dL (60-115); Magnesium 2.2 mg/dL (1.6-2.6); Potassium 4.1 mmol/L (3.3-5.1); Sodium 142 mmol/L (135-145)
[2024-07-19 07:34] LABS: B Type Natriuretic Peptide 660 pg/mL (<100)
[2024-07-19 07:48] LABS: Glucose, Whole Blood 102 mg/dL (60-115)
[2024-07-19] MEDS: Albuterol/Iprat 2.5/0.5MG 3 ML AMPUL.NEB INHALE ×3 (08:33→19:01)
[2024-07-19] MEDS: methADONE HCl 20 MG/2 ML ORAL.CONC 60 MG PO (09:33)
[2024-07-19] MEDS: Folic Acid 1 MG TABLET PO (09:35)
[2024-07-19] MEDS: Spironolactone 25 MG TABLET PO (09:35)
[2024-07-19] MEDS: Empagliflozin 25 MG TABLET PO (09:36)
[2024-07-19] MEDS: PHENobarbitaL 15 MG TABLET 45 MG PO ×2 (09:36→20:00)
[2024-07-19] MEDS: Multivitamin TABLET 1 TAB PO (09:36)
[2024-07-19] MEDS: Losartan Potassium 25 MG TABLET PO (09:37)
[2024-07-19] MEDS: Thiamine HCL 100 MG TABLET PO (09:37)
[2024-07-19] MEDS: Cholecalciferol (Vitamin D3) 25 MCG TABLET 100 MCG PO (09:37)
[2024-07-19] MEDS: predniSONE 20 MG TABLET 40 MG PO (09:37)
[2024-07-19] MEDS: Enoxaparin Sodium 40 MG/0.4 ML SYRINGE SUBCUT (09:37)
[2024-07-19] MEDS: Lactulose 20 GM/30 ML SOLUTION PO ×2 (09:37→20:00)
[2024-07-19] MEDS: Furosemide 40 MG/4 ML VIAL IVPUSH (09:37)
[2024-07-19] MEDS: 0.9 % Sodium Chloride Flush 3 ML SYRINGE IVFLUSH ×3 (09:38→23:00)
[2024-07-19 11:15] LABS: Glucose, Whole Blood 258 mg/dL (60-115)
[2024-07-19] MEDS: Insulin Lispro 100 UNIT/ML 3 ML VIAL SUBCUT ×3 (11:59→21:26)
--- NOTE | 2024-07-19 12:53 | HO.PM.IMPN ---
Subjective Subjective Date of Service: 07/19/24 Interval History: History obtained via [employer] Patient feeling better complaining of cough unable to bring up phlegm, denies chest pain, leg edema is improving, is on chronic 2 L of home oxygen. Review of Systems All other system reviewed and are negative. Physical Exam Vital Signs: Vital Signs: Last Vital Signs Temp 97.6 F 07/19/24 11:38 Pulse 64 07/19/24 11:38 Resp 20 07/19/24 11:38 BP 134/72 07/19/24 11:38 Pulse Ox 95 07/19/24 11:38 O2 Del Method Nasal Cannula 07/19/24 11:38 O2 Flow Rate 2 07/19/24 11:38 Oxygen Flow Rate 4 07/16/24 21:33 BMI result Body Mass Index 39.0 Const: Other: Gen: in no acute distress HEENT: sclera anicteric, moist mucus membranes Neck: supple Lungs: diminished, no crackles Heart: regular rate and rhythm, no murmurs Abd: soft, non-tender, non-distended Ext: Persistent mild pitting edema Skin: warm/well-perfused Neuro: alert and oriented x3, no focal findings Psych: appropriate affect Objective Data Active Medications Acetaminophen (Acetaminophen 325 Mg Tablet) 650 mg PO Q6H PRN PRN Reason: Pain, Mild 1-3,fever,headache Albuterol Sulfate (Albuterol Sulfate (0.083%) 2.5 Mg/3 Ml Vial.Neb) 2.5 mg INHALE RQ4H PRN PRN Reason: Shortness of Breath/Wheezing Albuterol/Ipratropium (Albuterol/Iprat 2.5/0.5mg 3 Ml Ampul.Neb) 3 ml INHALE RQ6H WHILE AWAKE [facility] Last Admin: 07/19/24 08:33 Dose: 3 ml Documented By: TJ Atorvastatin Calcium (Atorvastatin Calcium 80 Mg Tablet) 80 mg PO BEDTIME [facility] Last Admin: 07/18/24 22:56 Dose: 80 mg Documented By: AIDAN Calcium Carbonate (Calcium Carbonate 750 Mg Tab.Chew) 750 mg PO Q4H PRN PRN Reason: Heartburn Dextrose (Dextrose 50 % 25 Gm/50 Ml Syringe) 25 gm IVPUSH Q15M PRN; Protocol PRN Reason: per Hypoglycemia Standing Ord. Empagliflozin (Empagliflozin 25 Mg Tablet) 25 mg PO DAILY [facility] Last Admin: 07/19/24 09:36 Dose: 25 mg Documented By: GINA Enoxaparin Sodium (Enoxaparin Sodium 40 Mg/0.4 Ml Syringe) 40 mg SUBCUT Q24H [facility] Last Admin: 07/19/24 09:37 Dose: 40 mg Documented By: GINA Folic Acid (Folic Acid 1 Mg Tablet) 1 mg PO DAILY [facility] Last Admin: 07/19/24 09:35 Dose: 1 mg Documented By: GINA Furosemide (Furosemide 40 Mg/4 Ml Vial) 40 mg IVPUSH DAILY [facility]; Protocol Last Admin: 07/19/24 09:37 Dose: 40 mg Documented By: GINA Glucose (Glucose Gel 15 Gm Gel..Gram.) 15 gm PO Q15M PRN; Protocol PRN Reason: per Hypoglycemia Standing Ord. Insulin Human Lispro (Insulin Lispro 100 Unit/Ml 3 Ml Vial) 0 unit SUBCUT QIDACHS [facility]; Protocol Last Admin: 07/19/24 11:59 Dose: 6 unit Documented By: GINA Lactulose (Lactulose 20 Gm/30 Ml Solution) 20 gm PO BID [facility] Last Admin: 07/19/24 09:37 Dose: 20 gm Documented By: GINA Losartan Potassium (Losartan Potassium 25 Mg Tablet) 25 mg PO DAILY [facility]; Protocol Last Admin: 07/19/24 09:37 Dose: 25 mg Documented By: GINA Magnesium Hydroxide (Milk Of Magnesia 30 Ml Oral.Susp) 30 ml PO DAILY PRN PRN Reason: Constipation Melatonin (Melatonin 3 Mg Tablet) 6 mg PO BEDTIME PRN PRN Reason: Insomnia Methadone HCl (Methadone Hcl 20 Mg/2 Ml Oral.Conc) 60 mg PO DAILY@0800 [facility] Last Admin: 07/19/24 09:33 Dose: 60 mg Documented By: GINA Co-signed By: FELICITA Multivitamins/Vitamin C (Multivitamin Tablet) 1 tab PO DAILY [facility] Last Admin: 07/19/24 09:36 Dose: 1 tab Documented By: GINA Omeprazole (Omeprazole 40 Mg Capsule.Dr) 40 mg PO DAILY@0630 [facility] Last Admin: 07/19/24 05:57 Dose: 40 mg Documented By: HO.POTTSSU Ondansetron HCl (Ondansetron Hcl 4 Mg/2 Ml Vial) 4 mg IVPUSH Q8H PRN PRN Reason: Nausea and Vomiting Paroxetine HCl (Paroxetine Hcl 20 Mg Tablet) 20 mg PO BEDTIME [facility] Last Admin: 07/18/24 22:56 Dose: 20 mg Documented By: AIDAN Pharmacy Consult (Consult Rx Etoh Phenob Im/Po) 1 each MISCELLANE ONCE PRN; Protocol PRN Reason: Consult order Phenobarbital (Phenobarbital 15 Mg Tablet) 45 mg PO BID [facility]; Protocol Stop: 07/19/24 21:01 Last Admin: 07/19/24 09:36 Dose: 45 mg Documented By: GINA Phenobarbital (Phenobarbital 15 Mg Tablet) 15 mg PO BID [facility]; Protocol Stop: 07/21/24 21:01 Phenobarbital (Phenobarbital 15 Mg Tablet) 15 mg PO DAILY [facility]; Protocol Stop: 07/23/24 09:01 Polyethylene Glycol (Polyethylene Glycol 3350 17 Gm Powd.Pack) 17 gm PO DAILY PRN PRN Reason: Constipation Prazosin HCl (Prazosin Hcl 1 Mg Capsule) 4 mg PO BEDTIME [facility]; Protocol Last Admin: 07/18/24 22:55 Dose: 4 mg Documented By: AIDAN Prednisone (Prednisone 20 Mg Tablet) 40 mg PO DAILY [facility] Stop: 07/20/24 09:01 Last Admin: 07/19/24 09:37 Dose: 40 mg Documented By: GINA Senna (Sennosides 8.6 Mg Tablet) 17.2 mg PO BEDTIME PRN PRN Reason: Constipation Sodium Chloride (0.9 % Sodium Chloride Flush 3 Ml Syringe) 3 ml IVFLUSH QSHIFT [facility] Last Admin: 07/19/24 09:38 Dose: 3 ml Documented By: GINA Spironolactone (Spironolactone 25 Mg Tablet) 25 mg PO DAILY [facility]; Protocol Last Admin: 07/19/24 09:35 Dose: 25 mg Documented By: GINA Thiamine HCl (Thiamine Hcl 100 Mg Tablet) 100 mg PO DAILY [facility] Last Admin: 07/19/24 09:37 Dose: 100 mg Documented By: GINA Vitamin D (Cholecalciferol (Vitamin D3) 25 Mcg Tablet) 100 mcg PO DAILY [facility] Last Admin: 07/19/24 09:37 Dose: 100 mcg Documented By: GINA Labs 07/18/24 07:29 07/19/24 06:09 Labs: Laboratory Results - last 24 hr 07/18/24 07/18/24 07/18/24 10:58 16:47 21:07 Anion Gap Estim Creat Clear Calc Estimated GFR POC Glucose 216 H 157 H 179 H Random Glucose Calcium Magnesium B-Natriuretic Peptide 07/19/24 07/19/24 07/19/24 06:09 07:43 11:09 Anion Gap 12 Estim Creat Clear Calc 75.3 Estimated GFR 58 POC Glucose 102 258 H Random Glucose 106 Calcium 9.2 Magnesium 2.2 B-Natriuretic Peptide 660 H Assessment and Plan (1) Acute on chronic hypoxic respiratory failure: Status: Acute (2) Asthma-COPD overlap syndrome: Status: Acute Plan 64yo M with EtOH cirrhosis, DM2, HTN, GERD, asthma-COPD overlap, hx cardiac arrest, presenting with dyspnea + edema, EtOH intoxication; initially on BiPAP for hypercarbic respiratory failure leg edema due to acute CHF with preserved EF - on IV furosemide + PO spironolactone - initially attributed to cirrhosis but albumin is normal and BNP is high; echo showed grade 2 diastolic dysfunction, EF 55-60%, limited evaluation of cardiac valves - monitor BNP, I/O, lytes [BMP/Mg]. Negative > 2.5L - recommend fluid restriction -BNP remains elevated continue IV diuretics 1 more day and then transitioned to by mouth Lasix increase dose to 40 mg from baseline dose of 20 mg -cardiology consult acute hypercarbic respiratory failure due to asthma/COPD overlap with exacerbation - s/p IV methylprednisolone, now on prednisone 40 mg daily, standing/prn nebs; weaned off BiPAP to room air now -will add incentive spirometry AUD with withdrawal syndrome - continue phenobarbital taper, thiamine, folate, seen by Addiction Medicine patient is leaning towards using Campral cirrhosis - continue lactulose HLD - statin OUD - methadone, tox screen POSITIVE for fentanyl DM2 - elevated blood sugars likely due to steroids, continue empagliflozin and ISS HTN - losartan mood disorder - prazosin, paroxetine VTE ppx - enoxaparin dispo - PT eval in AM, recently discharged from outpatient physical In my clinical judgment, the patient requires continued hospitalization for the following reasons: IV diuresis, HF workup Quality Stroke Does the patient have a stroke diagnosis?: No VTE Prior VTE?: No VTE Risk Level:: Medical - moderate - high VTE Device Contraindication: N/A - Device Ordered VTE Drug Contraindication: N/A - Med Ordered
--- NOTE | 2024-07-19 13:43 | MHC.CM.PN ---
EMR reviewed and per MD rounds, pt is not medically cleared for discharge due to management of CHF, receiving IV diuretics.
[2024-07-19 16:26] LABS: Glucose, Whole Blood 170 mg/dL (60-115)
[2024-07-19] MEDS: Atorvastatin Calcium 80 MG TABLET PO (19:59)
[2024-07-19] MEDS: Prazosin HCL 1 MG CAPSULE 4 MG PO (19:59)
[2024-07-19] MEDS: PARoxetine HCL 20 MG TABLET PO (20:00)
[2024-07-19] MEDS: guaiFENesin LA 600 MG TAB.ER.12H PO (20:00)
[2024-07-19 21:28] LABS: Glucose, Whole Blood 175 mg/dL (60-115)
[2024-07-19] MEDS: Acamprosate Calcium 333 MG TABLET.DR 666 MG PO (21:47)
[2024-07-20] VITALS (10 sets, daily range): BP systolic 128–153; BP diastolic 61–83; PULSE 59–73; RESP 18–22; TEMP 36.1–36.9; O2SAT 92–99
[2024-07-20] MEDS: Omeprazole 40 MG CAPSULE.DR PO (05:26)
[2024-07-20 06:50] LABS: Anion Gap 12 (12-20); Blood Urea Nitrogen 41 mg/dL (9-16); Calcium 9.2 mg/dL (8.4-10.2); Carbon Dioxide 34 mmol/L (22-29); Chloride 98 mmol/L (96-108); Creatinine Clr Calc Pharmacy 74.1; Estimated Glomerular Filt Rate 57; Glucose Random 94 mg/dL (60-115); Potassium 4.3 mmol/L (3.3-5.1); Sodium 140 mmol/L (135-145)
[2024-07-20 07:09] LABS: Glucose, Whole Blood 85 mg/dL (60-115)
[2024-07-20] MEDS: Albuterol/Iprat 2.5/0.5MG 3 ML AMPUL.NEB INHALE ×3 (08:11→19:09)
[2024-07-20] MEDS: Lactulose 20 GM/30 ML SOLUTION PO ×2 (09:42→21:19)
[2024-07-20] MEDS: Enoxaparin Sodium 40 MG/0.4 ML SYRINGE SUBCUT (09:42)
[2024-07-20] MEDS: methADONE HCl 20 MG/2 ML ORAL.CONC 60 MG PO (09:42)
[2024-07-20] MEDS: Spironolactone 25 MG TABLET PO (09:43)
[2024-07-20] MEDS: Folic Acid 1 MG TABLET PO (09:43)
[2024-07-20] MEDS: Furosemide 40 MG/4 ML VIAL IVPUSH (09:43)
[2024-07-20] MEDS: PHENobarbitaL 15 MG TABLET PO ×2 (09:43→21:19)
[2024-07-20] MEDS: Losartan Potassium 25 MG TABLET PO (09:44)
[2024-07-20] MEDS: 0.9 % Sodium Chloride Flush 3 ML SYRINGE IVFLUSH ×3 (09:44→21:20)
[2024-07-20] MEDS: Cholecalciferol (Vitamin D3) 25 MCG TABLET 100 MCG PO (09:44)
[2024-07-20] MEDS: guaiFENesin LA 600 MG TAB.ER.12H PO ×2 (09:44→21:19)
[2024-07-20] MEDS: predniSONE 20 MG TABLET 40 MG PO (09:44)
[2024-07-20] MEDS: Empagliflozin 25 MG TABLET PO (09:44)
[2024-07-20] MEDS: Thiamine HCL 100 MG TABLET PO (09:44)
[2024-07-20] MEDS: Acamprosate Calcium 333 MG TABLET.DR 666 MG PO ×3 (09:44→21:19)
[2024-07-20] MEDS: Multivitamin TABLET 1 TAB PO (09:45)
[2024-07-20 11:09] LABS: Glucose, Whole Blood 126 mg/dL (60-115)
--- NOTE | 2024-07-20 11:10 | PM.CNCAR ---
History of Present Illness History of Present Illness Date of Service: 07/20/24 Requesting physician: Abbie Zhao Consult reason: congestive heart failure Chief complaint: Shortness of Breath Narrative: I was consulted to see Isael in cardiology consultation today for treatment of CHF. 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 Patient with prior history of alcohol related hepatitis/cirrhosis, morbid obesity question sleep apnea, obesity hypoventilation syndrome, not cardiac abuse, COPD, acid reflux, with prior history of cardiac arrest/asystole related to hyperkalemia and acute kidney injury. Patient came to the hospital with worsening shortness of breath and significant leg edema and was admitted for acute hypoxemic respiratory failure, on chronic oxygen therapy at home but does not use it all the time. Not sure if he uses CPAP at nighttime. History is very difficult to obtain. He said he feels a lot better and wants to go home. He has been diuresed and has negative balance of about 3.5 L. he has been receiving Lasix 40 mg IV daily in addition to spironolactone. Echocardiogram done this hospitalization overall limited study but she was grade 2 diastolic dysfunction with normal LV ejection fraction with mild LVH. Patient appears very restless and agitated although he says that he is calm. He denies any palpitations. Denies any lightheadedness, syncope. Blood pressure is optimized. Appears to be short of breath with talking rapidly. BNP on admission was in the 900 range which had improved next day to the 600 range. No repeat since then. Creatinine at 1.28 Review of Systems Constitutional: Constitutional: Reports no additional constitutional complaints Eyes: Eyes: Reports no additional eye complaints Cardiovascular: Cardiovascular: Reports Abdominal Distension (But he says that this is improved), Denies chest pain, Reports leg edema, Denies lightheadedness, Denies Loss of Consciousness, Denies palpitations and Reports dyspnea on exertion Respiratory: Respiratory: Denies cough and Reports dyspnea on exertion Musculoskeletal: Musculoskeletal: Reports no additional musculoskeletal complaints Neurologic: Reports system reviewed and no additional complaints, except as documented Endocrine: Endocrine: Denies palpitations PMFSH Past Medical History Medical History Chronic idiopathic constipation GERD (gastroesophageal reflux disease) Opioid use disorder Asthma-COPD overlap syndrome Morbid obesity Chronic hypoxic respiratory failure Restrictive lung disease Obesity hypoventilation syndrome DARRIAN treated with BiPAP Chronic respiratory failure Acute respiratory failure with hypoxia History of opiate therapy Morbid obesity due to excess calories CKD (chronic kidney disease) stage 3, GFR 30-59 ml/min Liver cirrhosis DARRIAN (obstructive sleep apnea) Chronic kidney disease Congestive heart failure Diabetes Family History Family History Mother Cancer Diabetes Surgical History Surgical History No pertinent past surgical history Social History Social History Household Members: Spouse Housing: House Do you presently have visiting nurse or other home services: Yes Alcohol intake: current Alcohol intake frequency: 3 or more drinks per day Alcohol type: hard liquor Comment: restraints Patient Tobacco Use Status: Never used Tobacco e-Cigarette/Vaping Use: Never Used Substance Use Type: Heroin service: No Current occupational status: disabled Meds Allergies Allergy/AdvReac Type Severity Reaction Status Date / Time aspirin [ASPIRIN] Allergy Unknown RASH Verified 07/16/24 21:39 ibuprofen Allergy Unknown nausea and Verified 07/16/24 21:39 vomiting Active Medications: Current Medications Acamprosate (Acamprosate Calcium 333 Mg Tablet.) 666 mg PO TID [facility] Last Admin: 07/20/24 09:44 Dose: 666 mg Acetaminophen (Acetaminophen 325 Mg Tablet) 650 mg PO Q6H PRN PRN Reason: Pain, Mild 1-3,fever,headache Albuterol Sulfate (Albuterol Sulfate (0.083%) 2.5 Mg/3 Ml Vial.Neb) 2.5 mg INHALE RQ4H PRN PRN Reason: Shortness of Breath/Wheezing Albuterol/Ipratropium (Albuterol/Iprat 2.5/0.5mg 3 Ml Ampul.Neb) 3 ml INHALE RQ6H WHILE AWAKE [facility] Last Admin: 07/20/24 08:11 Dose: 3 ml Atorvastatin Calcium (Atorvastatin Calcium 80 Mg Tablet) 80 mg PO BEDTIME [facility] Last Admin: 07/19/24 19:59 Dose: 80 mg Calcium Carbonate (Calcium Carbonate 750 Mg Tab.Chew) 750 mg PO Q4H PRN PRN Reason: Heartburn Dextrose (Dextrose 50 % 25 Gm/50 Ml Syringe) 25 gm IVPUSH Q15M PRN; Protocol PRN Reason: per Hypoglycemia Standing Ord. Empagliflozin (Empagliflozin 25 Mg Tablet) 25 mg PO DAILY [facility] Last Admin: 07/20/24 09:44 Dose: 25 mg Empagliflozin (Empagliflozin 10 Mg Tablet) 10 mg PO DAILY [facility] Enoxaparin Sodium (Enoxaparin Sodium 40 Mg/0.4 Ml Syringe) 40 mg SUBCUT Q24H [facility] Last Admin: 07/20/24 09:42 Dose: 40 mg Folic Acid (Folic Acid 1 Mg Tablet) 1 mg PO DAILY [facility] Last Admin: 07/20/24 09:43 Dose: 1 mg Furosemide (Furosemide 40 Mg/4 Ml Vial) 40 mg IVPUSH DAILY [facility]; Protocol Last Admin: 07/20/24 09:43 Dose: 40 mg Glucose (Glucose Gel 15 Gm Gel..Gram.) 15 gm PO Q15M PRN; Protocol PRN Reason: per Hypoglycemia Standing Ord. Guaifenesin (Guaifenesin La 600 Mg Tab.Er.12h) 600 mg PO BID [facility] Last Admin: 07/20/24 09:44 Dose: 600 mg Insulin Human Lispro (Insulin Lispro 100 Unit/Ml 3 Ml Vial) 0 unit SUBCUT QIDACHS [facility]; Protocol Last Admin: 07/20/24 07:11 Dose: Not Given Lactulose (Lactulose 20 Gm/30 Ml Solution) 20 gm PO BID [facility] Last Admin: 07/20/24 09:42 Dose: 20 gm Losartan Potassium (Losartan Potassium 25 Mg Tablet) 25 mg PO DAILY [facility]; Protocol Last Admin: 07/20/24 09:44 Dose: 25 mg Magnesium Hydroxide (Milk Of Magnesia 30 Ml Oral.Susp) 30 ml PO DAILY PRN PRN Reason: Constipation Melatonin (Melatonin 3 Mg Tablet) 6 mg PO BEDTIME PRN PRN Reason: Insomnia Methadone HCl (Methadone Hcl 20 Mg/2 Ml Oral.Conc) 60 mg PO DAILY@0800 [facility] Last Admin: 07/20/24 09:42 Dose: 60 mg Multivitamins/Vitamin C (Multivitamin Tablet) 1 tab PO DAILY [facility] Last Admin: 07/20/24 09:45 Dose: 1 tab Omeprazole (Omeprazole 40 Mg Capsule.Dr) 40 mg PO DAILY@0630 [facility] Last Admin: 07/20/24 05:26 Dose: 40 mg Ondansetron HCl (Ondansetron Hcl 4 Mg/2 Ml Vial) 4 mg IVPUSH Q8H PRN PRN Reason: Nausea and Vomiting Paroxetine HCl (Paroxetine Hcl 20 Mg Tablet) 20 mg PO BEDTIME [facility] Last Admin: 07/19/24 20:00 Dose: 20 mg Pharmacy Consult (Consult Rx Etoh Phenob Im/Po) 1 each MISCELLANE ONCE PRN; Protocol PRN Reason: Consult order Phenobarbital (Phenobarbital 15 Mg Tablet) 15 mg PO BID THAI; Protocol Stop: 07/21/24 21:01 Last Admin: 07/20/24 09:43 Dose: 15 mg Phenobarbital (Phenobarbital 15 Mg Tablet) 15 mg PO DAILY [facility]; Protocol Stop: 07/23/24 09:01 Polyethylene Glycol (Polyethylene Glycol 3350 17 Gm Powd.Pack) 17 gm PO DAILY PRN PRN Reason: Constipation Prazosin HCl (Prazosin Hcl 1 Mg Capsule) 4 mg PO BEDTIME [facility]; Protocol Last Admin: 07/19/24 19:59 Dose: 4 mg Senna (Sennosides 8.6 Mg Tablet) 17.2 mg PO BEDTIME PRN PRN Reason: Constipation Sodium Chloride (0.9 % Sodium Chloride Flush 3 Ml Syringe) 3 ml IVFLUSH QSHIFT [facility] Last Admin: 07/20/24 09:44 Dose: 3 ml Spironolactone (Spironolactone 25 Mg Tablet) 25 mg PO DAILY [facility]; Protocol Last Admin: 07/20/24 09:43 Dose: 25 mg Thiamine HCl (Thiamine Hcl 100 Mg Tablet) 100 mg PO DAILY [facility] Last Admin: 07/20/24 09:44 Dose: 100 mg Vitamin D (Cholecalciferol (Vitamin D3) 25 Mcg Tablet) 100 mcg PO DAILY [facility] Last Admin: 07/20/24 09:44 Dose: 100 mcg Home Medications ?Medication ?Instructions ?Recorded ?Confirmed ?Last Taken ?Type thiamine HCl (vitamin B1) 100 mg 100 mg PO DAILY 06/18/21 07/17/24 07/15/24 History tablet blood sugar diagnostic (FreeStyle #10 ea 12/12/21 12/11/22 07/15/24 History Lite Strips) blood-glucose meter (FreeStyle #1 ea 12/12/21 12/11/22 07/15/24 History [place] Lite kit) furosemide 20 mg tablet 20 mg PO DAILY 12/12/21 07/17/24 07/15/24 History lancets 33 gauge (TRUEplus Lancets) #100 ea 12/12/21 12/11/22 07/15/24 History methadone 10 mg/mL oral concentrate 60 mg PO DAILY 02/20/22 07/17/24 07/16/24 History paroxetine HCl 20 mg tablet 1 tab PO BEDTIME 04/11/22 07/17/24 07/15/24 History spironolactone 25 mg tablet 1 tab PO BEDTIME 04/11/22 07/17/24 07/15/24 History Oxygen Home Use 04/22/22 12/11/22 07/15/24 History CPAP (CPAP Machine/Device) 04/25/23 07/15/24 History empagliflozin 25 mg tablet 25 mg PO DAILY 08/08/23 07/17/24 07/15/24 History (Jardiance) folic acid 1 mg tablet 1 mg PO DAILY 08/08/23 07/17/24 07/15/24 History ipratropium 20 mcg-albuterol 100 1 puff inhalation QID 08/08/23 07/17/24 07/15/24 History mcg/actuation mist for inhalation (Combivent Respimat) prazosin 2 mg capsule 4 mg PO BEDTIME 08/08/23 07/17/24 07/15/24 History losartan 25 mg tablet 25 mg PO DAILY 05/28/24 07/17/24 07/15/24 History omeprazole 40 mg capsule,delayed 40 mg PO DAILY@0630 07/17/24 07/17/24 07/15/24 History release rosuvastatin 40 mg tablet 40 mg PO BEDTIME 07/17/24 07/17/24 07/15/24 History Physical Exam Vital Signs: Vital Signs: Last Vital Signs Temp 97.0 F 07/20/24 07:28 Pulse 73 07/20/24 08:14 Resp 20 07/20/24 08:14 BP 153/72 H 07/20/24 07:28 Pulse Ox 93 07/20/24 07:28 O2 Del Method Nasal Cannula 07/20/24 07:28 O2 Flow Rate 2 07/20/24 07:28 Oxygen Flow Rate 4 07/16/24 21:33 BMI result Body Mass Index 39.0 Const: General: cooperative, alert, awake and in distress mild and respiratory Nutritional Appearance: obese morbidly obese Orientation/consciousness: patient oriented x3 HEENT: Head: Yes normocephalic and Yes atraumatic Neck: Neck: Yes trachea midline, Yes supple and Yes other (Difficult to evaluate JVD) Resp: Effort & Inspection: decreased respiratory effort Auscultation: no crackles, no rales and diminished lung sounds Cardio: Rate: regular rate Rhythm: regular rhythm Heart sounds: S1 normal heart sound present, S2 normal heart sound present, no click, no gallops, no murmurs and no rubs GI: Auscultation: normal bowel sounds Skin: General skin exam: no rashes or lesions noted Neuro: General: patient oriented x3 and no focal motor deficits Extrem: General: No clubbing, No cyanosis and Yes edema Objective Labs and Meds 07/18/24 07:29 07/20/24 05:52 Lab results: Laboratory Results - last 24 hr 07/16/24 07/16/24 07/16/24 21:43 21:47 23:41 WBC 7.6 RBC 4.09 L Hgb 12.2 L Hct 38.3 L MCV 93.6 MCH 29.8 MCHC 31.9 RDW 15.8 Plt Count 151 L MPV 9.4 Immature Gran % (Auto) 0.3 Neut % (Auto) 56.6 Lymph % (Auto) 30.9 [place] % (Auto) 7.5 Eos % (Auto) 3.7 Baso % (Auto) 1.0 Lymph # (Auto) 2.4 [place] # (Auto) 0.6 Eos # (Auto) 0.3 Baso # (Auto) 0.1 Abs Immat Gran (auto) 0.02 Absolute Neuts (auto) 4.3 Absolute Nucleated RBC 0.000 Nucleated RBC % (auto) 0.0 Hold Purple Top PT 10.6 L INR 0.9 VBG pH 7.28 L VBG pCO2 61 VBG pO2 47 VBG HCO3 29 H VBG O2 Saturation 66.0 VBG Base Excess 1.4 Sodium 143 Potassium 4.7 Chloride 107 Carbon Dioxide 23 Anion Gap 18 BUN 19 H Creatinine 1.31 Estim Creat Clear Calc 72.4 Estimated GFR 55 POC Glucose Random Glucose 171 H Calcium 8.9 D Total Bilirubin 0.4 AST 57 H ALT 41 H Alkaline Phosphatase 160 H Troponin I High Sens 14.9 D 20.1 B-Natriuretic Peptide 325 H Total Protein 8.3 H Albumin 4.0 Ethyl Alcohol 316 H* Influenza Type A (PCR) NEGATIVE Influenza Type B (PCR) NEGATIVE RSV RNA Qual (PCR) NEGATIVE SARS-CoV-2 RNA (RT-PCR) NEGATIVE 07/19/24 07/19/24 07/19/24 11:09 16:18 21:21 WBC RBC Hgb Hct MCV MCH MCHC RDW Plt Count MPV Immature Gran % (Auto) Neut % (Auto) Lymph % (Auto) [place] % (Auto) Eos % (Auto) Baso % (Auto) Lymph # (Auto) [place] # (Auto) Eos # (Auto) Baso # (Auto) Abs Immat Gran (auto) Absolute Neuts (auto) Absolute Nucleated RBC Nucleated RBC % (auto) Hold Purple Top PT INR VBG pH VBG pCO2 VBG pO2 VBG HCO3 VBG O2 Saturation VBG Base Excess Sodium Potassium Chloride Carbon Dioxide Anion Gap BUN Creatinine Estim Creat Clear Calc Estimated GFR POC Glucose 258 H 170 H 175 H Random Glucose Calcium Total Bilirubin AST ALT Alkaline Phosphatase Troponin I High Sens B-Natriuretic Peptide Total Protein Albumin Ethyl Alcohol Influenza Type A (PCR) Influenza Type B (PCR) RSV RNA Qual (PCR) SARS-CoV-2 RNA (RT-PCR) 07/20/24 07/20/24 07/20/24 05:52 07:05 11:05 WBC RBC Hgb Hct MCV MCH MCHC RDW Plt Count MPV Immature Gran % (Auto) Neut % (Auto) Lymph % (Auto) [place] % (Auto) Eos % (Auto) Baso % (Auto) Lymph # (Auto) [place] # (Auto) Eos # (Auto) Baso # (Auto) Abs Immat Gran (auto) Absolute Neuts (auto) Absolute Nucleated RBC Nucleated RBC % (auto) Hold Purple Top SEE NOTE PT INR VBG pH VBG pCO2 VBG pO2 VBG HCO3 VBG O2 Saturation VBG Base Excess Sodium 140 Potassium 4.3 Chloride 98 Carbon Dioxide 34 H Anion Gap 12 BUN 41 H Creatinine 1.28 Estim Creat Clear Calc 74.1 Estimated GFR 57 POC Glucose 85 126 H Random Glucose 94 Calcium 9.2 Total Bilirubin AST ALT Alkaline Phosphatase Troponin I High Sens B-Natriuretic Peptide Total Protein Albumin Ethyl Alcohol Influenza Type A (PCR) Influenza Type B (PCR) RSV RNA Qual (PCR) SARS-CoV-2 RNA (RT-PCR) Assessment and Plan (1) CHF exacerbation: Status: Acute CHF predominantly right-sided contributed by both chronic cor pulmonale and obesity hypoventilation sudden probably untreated sleep apnea as well as diastolic dysfunction. Clinically still appears to be fluid overloaded although he has lot of other medical issues. I will continue with IV diuresis with Lasix. Strict intake and output chart needs to be pursued. Will recheck his BNP today. Add Jardiance 10 mg to his regimen. Continue spironolactone therapy. Continue oxygen supplementation therapy in the long run and consider oxygen desaturation study. Also require if not performed sleep apnea study as outpatient may benefit from CPAP BiPAP therapy at nighttime. Follow up with Pulmonary as outpatient. CHF education should be provided to the patient. His main current issues appear to be related to his alcohol and drug abuse. Will benefit from input from behavioral therapy about this. They are being seeing the patient. Discussed with him the importance of aggressive weight loss program and avoiding alcohol use to overall benefit his health and prevent recurrent heart failure syndrome. He showed understanding. Will follow with you Procedures Date of Service Date of Service: 07/20/24
[2024-07-20 13:04] LABS: B Type Natriuretic Peptide 177 pg/mL (<100)
--- NOTE | 2024-07-20 13:07 | MHC.CM.PN ---
Addendum entered by Nevaeh Ch RN 07/20/24 14:11: PER CARDIO PT NOT READY FOR DC AND WILL REMAIN INPT OVERNIGHT. 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
--- NOTE | 2024-07-20 16:21 | HO.PM.IMPN ---
Subjective Subjective Date of Service: 07/20/24 Interval History: Feeling better, is greater than 3.5 L negative, denies orthopnea, no PND No acute events overnight. Review of Systems All other system reviewed and are negative Physical Exam Vital Signs: Vital Signs: Last Vital Signs Temp 98.5 F 07/20/24 15:41 Pulse 68 07/20/24 15:41 Resp 20 07/20/24 15:41 BP 128/61 07/20/24 15:41 Pulse Ox 92 07/20/24 15:41 O2 Del Method Room Air 07/20/24 15:41 O2 Flow Rate 2 07/20/24 11:41 Oxygen Flow Rate 4 07/16/24 21:33 BMI result Body Mass Index 39.0 Const: Other: Gen: in no acute distress HEENT: sclera anicteric, moist mucus membranes Neck: supple, no JVD Lungs: diminished, no crackles Heart: regular rate and rhythm, no murmurs Abd: soft, non-tender, non-distended Ext: Persistent mild pitting edema Skin: warm/well-perfused Neuro: alert and oriented x3, no focal findings Psych: appropriate affect Objective Data Active Medications Acamprosate (Acamprosate Calcium 333 Mg Tablet.) 666 mg PO TID [facility] Last Admin: 07/20/24 15:07 Dose: 666 mg Documented By: KENJI Acetaminophen (Acetaminophen 325 Mg Tablet) 650 mg PO Q6H PRN PRN Reason: Pain, Mild 1-3,fever,headache Albuterol Sulfate (Albuterol Sulfate (0.083%) 2.5 Mg/3 Ml Vial.Neb) 2.5 mg INHALE RQ4H PRN PRN Reason: Shortness of Breath/Wheezing Albuterol/Ipratropium (Albuterol/Iprat 2.5/0.5mg 3 Ml Ampul.Neb) 3 ml INHALE RQ6H WHILE AWAKE [facility] Last Admin: 07/20/24 14:39 Dose: 3 ml Documented By: TRACI Atorvastatin Calcium (Atorvastatin Calcium 80 Mg Tablet) 80 mg PO BEDTIME [facility] Last Admin: 07/19/24 19:59 Dose: 80 mg Documented By: ALINA Calcium Carbonate (Calcium Carbonate 750 Mg Tab.Chew) 750 mg PO Q4H PRN PRN Reason: Heartburn Dextrose (Dextrose 50 % 25 Gm/50 Ml Syringe) 25 gm IVPUSH Q15M PRN; Protocol PRN Reason: per Hypoglycemia Standing Ord. Empagliflozin (Empagliflozin 25 Mg Tablet) 25 mg PO DAILY [facility] Last Admin: 07/20/24 09:44 Dose: 25 mg Documented By: KENJI Empagliflozin (Empagliflozin 10 Mg Tablet) 10 mg PO DAILY [facility] Last Admin: 07/20/24 12:00 Dose: Not Given Documented By: KENJI Non-Admin Reason: Hold per provider Enoxaparin Sodium (Enoxaparin Sodium 40 Mg/0.4 Ml Syringe) 40 mg SUBCUT Q24H [facility] Last Admin: 07/20/24 09:42 Dose: 40 mg Documented By: KENJI Folic Acid (Folic Acid 1 Mg Tablet) 1 mg PO DAILY [facility] Last Admin: 07/20/24 09:43 Dose: 1 mg Documented By: KENJI Furosemide (Furosemide 40 Mg/4 Ml Vial) 40 mg IVPUSH DAILY [facility]; Protocol Last Admin: 07/20/24 09:43 Dose: 40 mg Documented By: KENJI Glucose (Glucose Gel 15 Gm Gel..Gram.) 15 gm PO Q15M PRN; Protocol PRN Reason: per Hypoglycemia Standing Ord. Guaifenesin (Guaifenesin La 600 Mg Tab.Er.12h) 600 mg PO BID [facility] Last Admin: 07/20/24 09:44 Dose: 600 mg Documented By: KENJI Insulin Human Lispro (Insulin Lispro 100 Unit/Ml 3 Ml Vial) 0 unit SUBCUT QIDACHS [facility]; Protocol Last Admin: 07/20/24 11:20 Dose: Not Given Documented By: KENJI Non-Admin Reason: No Insulin Coverage Lactulose (Lactulose 20 Gm/30 Ml Solution) 20 gm PO BID [facility] Last Admin: 07/20/24 09:42 Dose: 20 gm Documented By: KENJI Losartan Potassium (Losartan Potassium 25 Mg Tablet) 25 mg PO DAILY [facility]; Protocol Last Admin: 07/20/24 09:44 Dose: 25 mg Documented By: KENJI Magnesium Hydroxide (Milk Of Magnesia 30 Ml Oral.Susp) 30 ml PO DAILY PRN PRN Reason: Constipation Melatonin (Melatonin 3 Mg Tablet) 6 mg PO BEDTIME PRN PRN Reason: Insomnia Methadone HCl (Methadone Hcl 20 Mg/2 Ml Oral.Conc) 60 mg PO DAILY@0800 [facility] Last Admin: 07/20/24 09:42 Dose: 60 mg Documented By: KENJI Co-signed By: ELIZABETH Multivitamins/Vitamin C (Multivitamin Tablet) 1 tab PO DAILY [facility] Last Admin: 07/20/24 09:45 Dose: 1 tab Documented By: KENJI Omeprazole (Omeprazole 40 Mg Capsule.Dr) 40 mg PO DAILY@0630 [facility] Last Admin: 07/20/24 05:26 Dose: 40 mg Documented By: ALINA Ondansetron HCl (Ondansetron Hcl 4 Mg/2 Ml Vial) 4 mg IVPUSH Q8H PRN PRN Reason: Nausea and Vomiting Paroxetine HCl (Paroxetine Hcl 20 Mg Tablet) 20 mg PO BEDTIME [facility] Last Admin: 07/19/24 20:00 Dose: 20 mg Documented By: ALINA Pharmacy Consult (Consult Rx Etoh Phenob Im/Po) 1 each MISCELLANE ONCE PRN; Protocol PRN Reason: Consult order Phenobarbital (Phenobarbital 15 Mg Tablet) 15 mg PO BID [facility]; Protocol Stop: 07/21/24 21:01 Last Admin: 07/20/24 09:43 Dose: 15 mg Documented By: KENJI Phenobarbital (Phenobarbital 15 Mg Tablet) 15 mg PO DAILY [facility]; Protocol Stop: 07/23/24 09:01 Polyethylene Glycol (Polyethylene Glycol 3350 17 Gm Powd.Pack) 17 gm PO DAILY PRN PRN Reason: Constipation Prazosin HCl (Prazosin Hcl 1 Mg Capsule) 4 mg PO BEDTIME [facility]; Protocol Last Admin: 07/19/24 19:59 Dose: 4 mg Documented By: ALINA Senna (Sennosides 8.6 Mg Tablet) 17.2 mg PO BEDTIME PRN PRN Reason: Constipation Sodium Chloride (0.9 % Sodium Chloride Flush 3 Ml Syringe) 3 ml IVFLUSH QSHIFT [facility] Last Admin: 07/20/24 15:07 Dose: 3 ml Documented By: KENJI Spironolactone (Spironolactone 25 Mg Tablet) 25 mg PO DAILY [facility]; Protocol Last Admin: 07/20/24 09:43 Dose: 25 mg Documented By: KENJI Thiamine HCl (Thiamine Hcl 100 Mg Tablet) 100 mg PO DAILY [facility] Last Admin: 07/20/24 09:44 Dose: 100 mg Documented By: KENJI Vitamin D (Cholecalciferol (Vitamin D3) 25 Mcg Tablet) 100 mcg PO DAILY [facility] Last Admin: 07/20/24 09:44 Dose: 100 mcg Documented By: KENJI Labs 07/18/24 07:29 07/20/24 05:52 Labs: Laboratory Results - last 24 hr 07/19/24 07/19/24 07/20/24 16:18 21:21 05:52 Hold Purple Top SEE NOTE Anion Gap 12 Estim Creat Clear Calc 74.1 Estimated GFR 57 POC Glucose 170 H 175 H Random Glucose 94 Calcium 9.2 B-Natriuretic Peptide 07/20/24 07/20/24 07/20/24 07:05 11:05 12:20 Hold Purple Top Anion Gap Estim Creat Clear Calc Estimated GFR POC Glucose 85 126 H Random Glucose Calcium B-Natriuretic Peptide 177 H Assessment and Plan (1) CHF exacerbation: Status: Acute Plan 64yo M with EtOH cirrhosis, DM2, HTN, GERD, asthma-COPD overlap, hx cardiac arrest, presenting with dyspnea + edema, EtOH intoxication; initially on BiPAP for hypercarbic respiratory failure leg edema due to acute CHF with preserved EF - on IV furosemide + PO spironolactone, greater than 3.5 L negative - initially attributed to cirrhosis but albumin is normal and BNP is high; echo showed grade 2 diastolic dysfunction, EF 55-60%, limited evaluation of cardiac valves - monitor BNP, I/O, lytes [BMP/Mg]. , recommend fluid restriction -BNP improved to 177,continue IV diuretics 1 more day and then transitioned to by mouth Lasix increase dose to 40 mg from baseline dose of 20 mg -seen by Cardiology they feel feel patient predominantly has right-sided heart failure due to chronic cor pulmonale and obesity hypoventilation probably untreated sleep apnea as well as diastolic dysfunction Will recommend outpatient sleep study acute hypercarbic respiratory failure due to asthma/COPD overlap with exacerbation - s/p IV methylprednisolone, now on prednisone 40 mg daily, standing/prn nebs; weaned off BiPAP , continue 2 L of baseline oxygen -will add incentive spirometry AUD with withdrawal syndrome - continue phenobarbital taper, thiamine, folate, seen by Addiction Medicine started on Campral cirrhosis - continue lactulose HLD - statin OUD - methadone, tox screen POSITIVE for fentanyl DM2 - elevated blood sugars likely due to steroids, continue empagliflozin and ISS HTN - losartan mood disorder - prazosin, paroxetine VTE ppx - enoxaparin dispo - PT recommend home with services. In my clinical judgment, the patient requires continued hospitalization for the following reasons: IV diuresis, HF workup Quality Stroke Does the patient have a stroke diagnosis?: No VTE Prior VTE?: No VTE Risk Level:: Medical - moderate - high VTE Device Contraindication: N/A - Device Ordered VTE Drug Contraindication: N/A - Med Ordered
[2024-07-20 16:35] LABS: Glucose, Whole Blood 215 mg/dL (60-115)
[2024-07-20] MEDS: Insulin Lispro 100 UNIT/ML 3 ML VIAL SUBCUT ×2 (16:46→21:19)
[2024-07-20 20:48] LABS: Glucose, Whole Blood 174 mg/dL (60-115)
[2024-07-20] MEDS: PARoxetine HCL 20 MG TABLET PO (21:19)
[2024-07-20] MEDS: Prazosin HCL 1 MG CAPSULE 4 MG PO (21:19)
[2024-07-20] MEDS: Atorvastatin Calcium 80 MG TABLET PO (21:19)
[2024-07-21 03:51] VITALS: BP 156/83; PULSE 61; RESP 18; TEMP 36.3; O2SAT 96
[2024-07-21] MEDS: Omeprazole 40 MG CAPSULE.DR PO (06:18)
[2024-07-21 07:03] VITALS: BP 105/61; PULSE 63; RESP 17; TEMP 36.6; O2SAT 93
[2024-07-21 07:05] LABS: Glucose, Whole Blood 96 mg/dL (60-115)
[2024-07-21] MEDS: Thiamine HCL 100 MG TABLET PO (08:08)
[2024-07-21] MEDS: Spironolactone 25 MG TABLET PO (08:08)
[2024-07-21] MEDS: Empagliflozin 25 MG TABLET PO (08:08)
[2024-07-21] MEDS: Folic Acid 1 MG TABLET PO (08:08)
[2024-07-21] MEDS: Acamprosate Calcium 333 MG TABLET.DR 666 MG PO (08:08)
[2024-07-21] MEDS: guaiFENesin LA 600 MG TAB.ER.12H PO (08:08)
[2024-07-21] MEDS: Losartan Potassium 25 MG TABLET PO (08:09)
[2024-07-21] MEDS: Cholecalciferol (Vitamin D3) 25 MCG TABLET 100 MCG PO (08:09)
[2024-07-21] MEDS: Enoxaparin Sodium 40 MG/0.4 ML SYRINGE SUBCUT (08:09)
[2024-07-21] MEDS: PHENobarbitaL 15 MG TABLET PO (08:09)
[2024-07-21] MEDS: Multivitamin TABLET 1 TAB PO (08:09)
[2024-07-21] MEDS: Furosemide 40 MG/4 ML VIAL IVPUSH (08:09)
[2024-07-21] MEDS: Lactulose 20 GM/30 ML SOLUTION PO (08:10)
[2024-07-21] MEDS: methADONE HCl 20 MG/2 ML ORAL.CONC 60 MG PO (08:10)
[2024-07-21] MEDS: Albuterol/Iprat 2.5/0.5MG 3 ML AMPUL.NEB INHALE (08:11)
[2024-07-21 08:12] VITALS: PULSE 84; RESP 20; O2SAT 93
[2024-07-21] MEDS: 0.9 % Sodium Chloride Flush 3 ML SYRINGE IVFLUSH (08:13)
[2024-07-21 10:00] LABS: Anion Gap 13 (12-20); Blood Urea Nitrogen 37 mg/dL (9-16); Calcium 9.6 mg/dL (8.4-10.2); Carbon Dioxide 32 mmol/L (22-29); Chloride 99 mmol/L (96-108); Creatinine Clr Calc Pharmacy 68.3; Estimated Glomerular Filt Rate 52; Glucose Random 163 mg/dL (60-115); Potassium 4.1 mmol/L (3.3-5.1); Sodium 140 mmol/L (135-145)
--- NOTE | 2024-07-21 10:23 | PM.PNCARD ---
Subjective Subjective Date of Service: 07/21/24 Principal diagnosis: CHF Interval history: Patient says he feels better. He has leg edema has improved. His abdominal distention improved. His breathing is stable, still using oxygen though. Appears somewhat anxious. Review of Systems Constitutional: Reports no additional constitutional complaints Cardiovascular: Denies Abdominal Distension, Denies chest pain, Denies leg edema, Denies lightheadedness, Denies Loss of Consciousness, Denies palpitations and Reports dyspnea on exertion Respiratory: Reports dyspnea on exertion Reports system reviewed and no additional complaints, except as documented Psychiatric: Reports no additional psychiatric complaints Endocrine: Denies palpitations Physical Exam Vital Signs: Last Vital Signs Temp 97.8 F 07/21/24 07:03 Pulse 84 07/21/24 08:12 Resp 20 07/21/24 08:12 BP 105/61 07/21/24 07:03 Pulse Ox 93 07/21/24 07:03 O2 Del Method Room Air 07/21/24 07:03 O2 Flow Rate 2 07/20/24 11:41 Oxygen Flow Rate 4 07/16/24 21:33 BMI result Body Mass Index 39.0 Const General: cooperative, alert, awake and in distress mild and respiratory Nutritional Appearance: obese morbidly obese Orientation/consciousness: patient oriented x3 HEENT Head: Yes normocephalic and Yes atraumatic Neck Neck: Yes trachea midline, Yes supple and Yes no JVD Resp Effort & Inspection: decreased respiratory effort Auscultation: no crackles, no rales and diminished lung sounds Cardio Jugular venous distension: no JVD Rate: regular rate Rhythm: regular rhythm Heart sounds: S1 normal heart sound present, S2 normal heart sound present, no click, no gallops, no murmurs and no rubs GI Auscultation: normal bowel sounds Skin General skin exam: no rashes or lesions noted Neuro General: patient oriented x3 and no focal motor deficits Extrem General: No clubbing, No cyanosis and No edema Objective Labs and Meds 07/18/24 07:29 07/21/24 09:25 Lab results: Laboratory Results - last 24 hr 07/20/24 07/20/24 07/20/24 11:05 12:20 16:31 Sodium Potassium Chloride Carbon Dioxide Anion Gap BUN Creatinine Estim Creat Clear Calc Estimated GFR POC Glucose 126 H 215 H Random Glucose Calcium B-Natriuretic Peptide 177 H 07/20/24 07/21/24 07/21/24 20:37 07:01 09:25 Sodium 140 Potassium 4.1 Chloride 99 Carbon Dioxide 32 H Anion Gap 13 BUN 37 H Creatinine 1.39 Estim Creat Clear Calc 68.3 Estimated GFR 52 POC Glucose 174 H 96 Random Glucose 163 H Calcium 9.6 B-Natriuretic Peptide Progress Note: A&P Assessment and plan (1) CHF exacerbation: Status: Acute Assessment and Plan: CHF exacerbation predominantly right-sided with lot of comorbidities including morbid obesity, LV diastolic dysfunction, most likely Pickwickian syndrome with chronic cor pulmonale as well as possibly untreated sleep apnea. Patient was oxygen dependent at home. Continue with oxygen therapy. Switch to oral diuretics with bumetanide 1 mg daily. Continue spironolactone and Jardiance. Complete cessation of alcohol and drug use was discussed with him. He promises that he would try to avoided. Blood pressure is on low side will avoid losartan therapy at this point time. From cardiac perspective can be discharged home. Time Spent With Patient Time: Total time managing care of this patient today ____ minutes. Progress Note: Quality Stroke Does the patient have a stroke diagnosis?: No Procedures Date of Service Date of Service: 07/21/24
[2024-07-21 11:03] LABS: Glucose, Whole Blood 132 mg/dL (60-115)
[2024-07-21 11:04] VITALS: BP 116/73; PULSE 66; RESP 18; TEMP 36.3; O2SAT 95
--- NOTE | 2024-07-21 11:36 | MHC.RECOVRN ---
Met with pt, along with staff interpreter, in 468 to follow up and provide support. Pt awake, alert, easily engages in conversation, sitting in chair. Pt reports feeling much better, slight tremor, otherwise no signs of withdrawal. Pt plans to continue Campral and follow up with OTP. Pt denies questions or concerns for t/w.
--- NOTE | 2024-07-21 14:08 | PM.DS ---
DS: Providers Provider Date of Service: 07/21/24 Date of admission: 07/17/24 02:41 Date of discharge: 07/21/24 Primary care physician: Nelly Bach MD Consults: 07/17/24 08:30 Addiction Medicine Routine Consulting Provider: Addiction Covering Reason for consultation: etoh 07/19/24 13:13 Consult to Cardiology Routine Consulting Provider: [facility] Reason for consultation: diastolic chf Has provider been notified: No DS: Diagnosis Discharge Diagnosis (1) CHF exacerbation: Status: Acute DS: Summary Hospital Course Hospital Course: History of presenting illness Date of Service: 07/17/24 Attending physician on admission: Samir Garcia Chief Complaint: Bilateral leg edema and Patient is a 64 year old obese male with history of alcoholic liver cirrhosis, GERD, hypertension, type 2 diabetes mellitus, asthma-COPD overlap syndrome and history of cardiac arrest who presents to the emergency room with vague symptoms. He reported having shortness of breath, vague chest pain and bilateral leg edema. When I saw him, his main complain was swelling of his legs and denied other complains. Initial blood work done revealed an elevated serum alcohol level of 316 mg/dl and mildly elevated liver enzymes and BNP. He received IV Lasix and when I saw him he was feeling better and did not appear to be in any distress. Admission was requested for further care. Hospital course: 64yo M with EtOH cirrhosis, DM2, HTN, GERD, asthma-COPD overlap, hx cardiac arrest, presenting with dyspnea + edema, EtOH intoxication; initially on BiPAP for hypercarbic respiratory failure admitted for following medical issues Acute CHF with preserved EF treated with IV Lasix, by mouth spironolactone responded well to above treatment greater than 3.5 L negative BNP improved to 177,echo showed grade 2 diastolic dysfunction, EF 55-60%, limited evaluation of cardiac valves , seen by curatorial specialist they felt patient predominantly has right-sided heart failure due to chronic cor pulmonale and obesity hypoventilation probably untreated sleep apnea, recommend outpatient sleep study, recommend fluid intake 1.5 L and strongly recommend to abstain from alcohol, will discharge on Bumex 1 mg daily recommend to continue Jardiance and spironolactone. And DC Lasix acute hypercarbic respiratory failure due to asthma/COPD overlap with exacerbation treated with IV steroids weaned of BiPAP continue 2 L of baseline oxygen. AUD with withdrawal syndrome treated with phenobarb protocol, thiamine folic acid seen by Addiction Team started on Campral Cirrhosis - continue lactulose. HLD - continue statin Opiate use disorder recommend to continue methadone, noted to have toxic screen positive for fentanyl seen by Addiction Team strongly recommend to abstain illicit drug use. DM2-continue empagliflozin and follow diabetic diet HTN stable blood pressure continue losartan mood disorder- continue prazosin, paroxetine. Time Attestation Discharge Coordination Time (in mins): 40 Quality: Safe Use of Opioids Does Pt have an Active Cancer Diagnosis on the Problem List?: No Quality: Stroke Does the patient have a stroke diagnosis?: No Physical Exam Vital Signs: Vital Signs: Last Vital Signs Temp 97.4 F 07/21/24 11:04 Pulse 66 07/21/24 11:04 Resp 18 07/21/24 11:04 BP 116/73 07/21/24 11:04 Pulse Ox 95 07/21/24 11:04 O2 Del Method Room Air 07/21/24 11:04 O2 Flow Rate 2 07/20/24 11:41 Oxygen Flow Rate 4 07/16/24 21:33 BMI result Body Mass Index 39.0 Const: Other: Gen: in no acute distress HEENT: sclera anicteric, moist mucus membranes Neck: supple, no JVD Lungs: diminished, no crackles Heart: regular rate and rhythm, no murmurs Abd: soft, non-tender, non-distended Ext: No pitting edema Skin: warm/well-perfused Neuro: alert and oriented x3, hand tremors Psych: appropriate affect DS: Data Data Completed and Pending Completed studies during hospitalization [Text1]: Procedures Assistance with Respiratory Ventilation, Less than 24 Consecutive Hours, Continuous Positive Airway Pressure (08/08/23) Detoxification Services for Substance Abuse Treatment (08/08/23) Insertion of Endotracheal Airway into Trachea, Via Natural or Artificial Opening (09/28/21) Insertion of Infusion Device into Superior Vena Cava, Percutaneous Approach (09/28/21) Insertion of Monitoring Device into Upper Artery, Percutaneous Approach (09/28/21) Introduction of Vasopressor into Peripheral Vein, Percutaneous Approach (09/28/21) Monitoring of Arterial Pressure, Peripheral, Percutaneous Approach (09/28/21) Monitoring of Arterial Pulse, Peripheral, Percutaneous Approach (09/28/21) Performance of Cardiac Output, Single, Manual (09/28/21) Respiratory Ventilation, Greater than 96 Consecutive Hours (09/28/21) Ultrasonography of Superior Vena Cava, Guidance (09/28/21) Labs on day of discharge: Laboratory Results - last 24 hr 07/20/24 07/20/24 07/21/24 16:31 20:37 07:01 Sodium Potassium Chloride Carbon Dioxide Anion Gap BUN Creatinine Estim Creat Clear Calc Estimated GFR POC Glucose 215 H 174 H 96 Random Glucose Calcium 07/21/24 07/21/24 09:25 10:58 Sodium 140 Potassium 4.1 Chloride 99 Carbon Dioxide 32 H Anion Gap 13 BUN 37 H Creatinine 1.39 Estim Creat Clear Calc 68.3 Estimated GFR 52 POC Glucose 132 H Random Glucose 163 H Calcium 9.6 Discharge Plan Discharge Anticipated Discharge Date/Time: 07/21/24 14:04 Patient Disposition: Home Health Service Discharge Diagnosis: Acute CHF with preserved EF Acute hypercarbic respiratory failure Alcohol use disorder with withdrawal Opiate use disorder Referrals: Nelly Bach MD [Primary Care Provider] - 1 Week Discharge Medications: New acamprosate 333 mg Tablet,Delayed Release (Dr/Ec) 666 mg PO TID Qty: 180 0RF bumetanide 1 mg Tablet 1 mg PO DAILY Qty: 30 0RF Protocol: Hold for SBP< HOLD for SBP < : 90 Continued cholecalciferol (vitamin D3) 50 mcg (2,000 unit) capsule 100 mcg PO DAILY Qty: 180 3RF spironolactone 25 mg tablet 1 tab PO BEDTIME paroxetine HCl 20 mg tablet 1 tab PO BEDTIME rosuvastatin 40 mg tablet 40 mg PO BEDTIME omeprazole 40 mg capsule,delayed release(DR/EC) 40 mg PO DAILY@0630 prazosin 2 mg capsule 4 mg PO BEDTIME Combivent Respimat 20-100 mcg/actuation mist 1 puff INHALATION QID Rx Instructions: WHILE AWAKE folic acid 1 mg Tablet 1 mg PO DAILY Jardiance 25 mg tablet 25 mg PO DAILY thiamine HCl (vitamin B1) 100 mg tablet 100 mg PO DAILY (DME) Oxygen Home Use Kit See Rx Instructions .Route Rx Instructions: As directed (DME) blood-glucose meter [FreeStyle [place]ston Lite] Kit See Rx Instructions Not Applicable BID Qty: 1 Rx Instructions: As directed (DME) FreeStyle Lite Strips Strip See Rx Instructions Not Applicable BID Qty: 10 Rx Instructions: As directed (DME) lancets [TRUEplus Lancets] 33 gauge misc See Rx Instructions Not Applicable BID Qty: 100 Rx Instructions: As directed methadone 10 mg/mL concentrate 60 mg PO DAILY Rx Instructions: Per PT's Daughter - fills at [facility] losartan 25 mg tablet 25 mg PO DAILY lactulose 10 gram/15 mL solution 20 g PO BID Qty: 473 2RF (DME) CPAP Machine/Device Device See Rx Instructions .ROUTE Rx Instructions: As directed Discontinued furosemide 20 mg tablet 20 mg PO DAILY Discharge Orders: Discharge Order (Routine); Ordered 07/21/24 Ordered By: Abbie Zhao Diet: Diabetic diet Activity on Discharge: As tolerated Stand Alone Forms: Patient Portal Discharge page Print Language: Sami Care Plan Goals: Strongly recommend to abstain from alcohol started on Campral 3 times a day [facility] services for medical management and teaching for CHF/physical therapy Discontinue Lasix Take Bumex 1 mg daily Continue 2 L of home oxygen. Health Concerns: Continue all home medications Plan of Treatment: Outpatient follow-up with Cardiology call for appointment Outpatient follow-up with primary care physician call for appointment Assessment: As above
--- NOTE | 2024-07-21 14:16 | P.F2F_ITS ---
Service Date Service Date: 07/21/24 Encounter Date of encounter: 07/21/24 Reasons for Services Signs and symptoms assessed: Shortness of breath/tremors/CHF Reason for prison: CV/CP assess and/or care, diabetic teaching and medication management Reason for physical therapy: home safety and mobility Homebound: Leaving the home is medically contraindicated at this time without the asist of a device and/or another person due th the listed conditions above and below. Reason homebound: weakness related to hospital stay Certification: Based on the above findings, I certify that this patient is confined to the home and needs intermittent prison care, physical therapy and/or speech therapy, or continues to need occupational therapy. The patient is under my care, and I have initiated the establishment of the plan of care. The patient will be followed by a physician who will periodically review the plan of care. Time Spent With Patient Time: Total time managing care of this patient today ____ minutes.
--- NOTE | 2024-07-21 15:13 | MHC.CM.PN ---
Pt is medically cleared for discharge home with new [facility] services, and resumption of [facility] services. Pts Uncle will be transporting him home today.
== END 2024-07-21 15:00 | disposition home health service (06) | DRG 194 ==
LOC: HO.ED 22:24 → HO.EDOVER 07-17 07:09 → HO.IMC 07-17 10:52
PROVIDERS: Family Medicine; Admitting Provider Internal Medicine; Emergency Provider Internal Medicine; PCP Internal Medicine; Visit Provider Hospitalist
DX: I13.0 Hypertensive heart and chronic kidney disease with heart failure and stage 1 through stage 4 chronic kidney disease, or unspecified chronic kidney disease (principal); J96.02 Acute respiratory failure with hypercapnia; I27.81 Cor pulmonale (chronic); J44.1 Chronic obstructive pulmonary disease with (acute) exacerbation; E66.2 Morbid (severe) obesity with alveolar hypoventilation; J45.901 Unspecified asthma with (acute) exacerbation; K70.31 Alcoholic cirrhosis of liver with ascites; E11.22 Type 2 diabetes mellitus with diabetic chronic kidney disease; F39 Unspecified mood [affective] disorder; Z99.81 Dependence on supplemental oxygen; K70.30 Alcoholic cirrhosis of liver without ascites; K21.9 Gastro-esophageal reflux disease without esophagitis; N18.30 Chronic kidney disease, stage 3 unspecified; I50.31 Acute diastolic (congestive) heart failure; F10.239 Alcohol dependence with withdrawal, unspecified; Y90.8 Blood alcohol level of 240 mg/100 ml or more; Z68.39 Body mass index [BMI] 39.0-39.9, adult; E78.5 Hyperlipidemia, unspecified; I50.811 Acute right heart failure; F11.20 Opioid dependence, uncomplicated; Z71.41 Alcohol abuse counseling and surveillance of alcoholic; Z20.822 Contact with and (suspected) exposure to COVID-19; Z79.899 Other long term (current) drug therapy
CPT/HCPCS: 0241U; 36415; 71045; 76705; 80048; 80053; 80307; 82803; 82947; 83735; 83880; 84484; 85025; 85027; 85610; 93005; 93306; 94640; 94660; 97162; 99285; J1650; J1940; J2560; J2919; J3411; Q9957; S9485

== ENCOUNTER → 2024-07-16 21:25 | Outpatient (BNV) | payer MEDICAID, SELFPAY | PROVIDERS: Admitting Provider Internal Medicine; Emergency Provider Internal Medicine; Visit Provider Internal Medicine Cardiovascular Disease | DX: R94.31 Abnormal electrocardiogram [ECG] [EKG] (principal); R07.9 Chest pain, unspecified | CPT/HCPCS: 93010 ==

== ENCOUNTER → 2024-07-16 21:39 | Outpatient (BNV) | payer MEDICAID, SELFPAY | PROVIDERS: Emergency Provider Internal Medicine; Visit Provider Radiology Diagnostic Radiology | DX: R07.9 Chest pain, unspecified (principal); R06.02 Shortness of breath | CPT/HCPCS: 71045 ==

== ENCOUNTER 2024-07-17 02:41 | Outpatient (BNV) | payer MEDICAID, SELFPAY | END 2024-07-17 08:51 | PROVIDERS: Admitting Provider Internal Medicine; Emergency Provider Internal Medicine; Visit Provider Radiology Diagnostic Radiology | DX: R18.8 Other ascites (principal) | CPT/HCPCS: 76705 ==

== ENCOUNTER 2024-07-17 02:41 | Outpatient (BNV) | payer MEDICAID, SELFPAY | END 2024-07-19 07:00 | PROVIDERS: Admitting Provider Internal Medicine; Emergency Provider Internal Medicine; Visit Provider Internal Medicine Cardiovascular Disease | DX: I51.89 Other ill-defined heart diseases (principal) | CPT/HCPCS: 93306 ==

== ENCOUNTER → 2024-07-17 02:41 | Outpatient (BNV) | payer MEDICAID, SELFPAY | PROVIDERS: Admitting Provider Internal Medicine; Emergency Provider Internal Medicine; Visit Provider Internal Medicine | DX: I50.9 Heart failure, unspecified (principal) | CPT/HCPCS: 99222; 99232; 99233; 99239; 99499; G0180 ==

== ENCOUNTER → 2024-07-17 02:41 | Outpatient (BNV) | payer MEDICAID, SELFPAY | PROVIDERS: Admitting Provider Internal Medicine; Emergency Provider Internal Medicine; PCP Internal Medicine; Visit Provider Internal Medicine Cardiovascular Disease | DX: I50.9 Heart failure, unspecified (principal) | CPT/HCPCS: 99222 ==

== ENCOUNTER → 2024-07-17 02:41 | Outpatient (BNV) | payer MEDICAID, SELFPAY | PROVIDERS: Admitting Provider Internal Medicine; Emergency Provider Internal Medicine; Visit Provider Nurse Practitioner Psychiatric/Mental Health | DX: F10.20 Alcohol dependence, uncomplicated (principal) | CPT/HCPCS: 99222 ==

== ENCOUNTER 2024-08-16 09:25 | Outpatient (AMB) | payer MEDICAID, SELFPAY ==
--- NOTE | 2024-08-16 09:28 | MHC.OFFVIS ---
Vital Signs 08/16/24 09:31 Height 5 ft 8 in Weight 237 lb 10.533 oz BMI 36.1 BP 140/64 H Blood Pressure Location Lt brachial Position Sitting Pulse 67 Pulse Source Monitor Intake Visit Reasons: r/s 05/24/24 6 mos followup Intake Note: r/s 6 mth f/up Manager Channel Required: No Accompanied by: Self / Same As Patient Allergies aspirin [ASPIRIN] Allergy (Unknown, Verified 07/16/24 21:39) RASH ibuprofen Allergy (Unknown, Verified 07/16/24 21:39) nausea and vomiting Medication List - Last Reconciled 08/16/24 by Andrea Nina MD acamprosate 666 mg (2 x 333 mg) PO TID blood sugar diagnostic (FreeStyle Lite Strips) As directed blood-glucose meter (FreeStyle [place] Lite kit) As directed bumetanide 1 mg See Protocol PO DAILY cholecalciferol (vitamin D3) 100 mcg (2 x 50 mcg (2,000 unit)) PO DAILY CPAP (CPAP Machine/Device) As directed empagliflozin (Jardiance) 25 mg PO DAILY folic acid 1 mg PO DAILY ipratropium-albuterol 20-100 mcg/actuation (Combivent Respimat) 1 puff inhalation QID lactulose 20 grams (30 mL) PO BID lancets (TRUEplus Lancets) As directed losartan 25 mg PO DAILY methadone 60 mg PO DAILY omeprazole 40 mg PO DAILY@0630 Oxygen Home Use As directed paroxetine HCl 1 tab PO BEDTIME prazosin 4 mg PO BEDTIME rosuvastatin 40 mg PO BEDTIME spironolactone 1 tab PO BEDTIME thiamine HCl (vitamin B1) 100 mg PO DAILY HPI Comments Details: 64-year-old gentleman who is here for follow-up. 06/05/22: He was seen the hospital for asymptomatic sinus bradycardia. He was on carvedilol 3.125 mg twice a day which he was advised to continue given the lack of symptoms. He also had cardiac arrest previously in the setting of hyperkalemia. Overall he has been doing well. He had stroke before and has some speech issues. He is taking his medications regularly. He has been experiencing lightheadedness and dizziness at nighttime. These episodes happen when he stands up and he feels lightheaded. He is describing that these symptoms are quite frequently. Denying any chest pain or shortness of breath otherwise. He is saying he drinks a lot of water. Given his postural dizziness he was advised to stop the hydralazine. 12/11/22: He returns for follow-up. Blood pressure is good 120/70. Previously complained of dizziness and he was advised to stop the hydralazine but it appears he is still taking the hydralazine. He is drinking 3 beers per day. He is saying that he was in the hospital with leg infection and was given antibiotics. He has bilateral lower extremity edema at this point. He is due to sees primary care physician tomorrow and also seeing nephrology next week. He is denying any orthopnea or PND. He is saying he is using his CPAP any sleeping. Blood pressure control is good. 11/12/23: He is here for follow-up. Blood pressure he is mildly elevated. He has visiting nurse who checks his blood pressure daily and he has saying that the blood pressure has been fine. Denying significant shortness of breath or chest pain. He has sleep apnea and wears a mask at night. 08/16/2024: Here for follow-up. Previously we checked his lipid panel showing total cholesterol 262, triglyceride 175, LDL 141 and HDL 86. He has been started on rosuvastatin 40 mg daily. He was admitted at [facility] in 07/29/2024 with congestive heart failure. This was felt to be right more than left-sided heart failure. There is some background of alcohol use. Echocardiography done during hospitalization showed EF 55-60% with grade 2 diastolic dysfunction and elevated filling pressures. Right ventricle was not well visualized. He had hypercarbic respiratory failure during the same hospitalization and required BiPAP. He was discharged on Bumex 1 mg daily and acamprosate 333 mg 2 tablets 3 times a day. He is saying he has decreased alcohol significantly but still continues to drink. He is saying his swelling is significantly improved at this point. He is still has some peripheral edema. Blood pressure is mildly elevated. He has not been using his CPAP regularly and we will be seeing pulmonology in follow-up soon. [facility] Medical History Chronic idiopathic constipation GERD (gastroesophageal reflux disease) Opioid use disorder Asthma-COPD overlap syndrome Morbid obesity Chronic hypoxic respiratory failure Restrictive lung disease Obesity hypoventilation syndrome DARRIAN treated with BiPAP Chronic respiratory failure Acute respiratory failure with hypoxia History of opiate therapy Morbid obesity due to excess calories CKD (chronic kidney disease) stage 3, GFR 30-59 ml/min Liver cirrhosis DARRIAN (obstructive sleep apnea) Chronic kidney disease Congestive heart failure Diabetes Surgical History No pertinent past surgical history Family History Mother Cancer Diabetes Social History Household Members: Spouse Housing: House Do you presently have visiting nurse or other home services: Yes Alcohol intake: current Alcohol intake frequency: 3 or more drinks per day Alcohol type: hard liquor Comment: restraints Patient Tobacco Use Status: Never used Tobacco e-Cigarette/Vaping Use: Never Used Substance Use Type: Heroin service: No Current occupational status: disabled Review of Systems Const Denies chills, Denies fatigue, Denies fever(s), Denies frequent falls, Denies weakness, Denies weight gain and Denies weight loss ENT Denies dizziness Card Denies chest pain, Denies leg edema, Denies lightheadedness, Denies palpitations, Denies dyspnea and Denies dyspnea on exertion Resp Denies cough, Denies dyspnea and Denies dyspnea on exertion GI Denies hematochezia Musc Denies abnormal gait, Denies muscle weakness, Denies numbness, Denies radiating pain into limb and Denies tingling Neuro Denies abnormal gait, Denies dizziness, Denies frequent falls, Denies numbness, Denies tingling and Denies weakness Endo Denies fatigue and Denies palpitations Physical Exam Vital Signs: Last Vital Signs Pulse 67 08/16/24 09:31 BP 140/64 H 08/16/24 09:31 BMI result Body Mass Index 36.1 GENERAL APPEARANCE: in no acute distress, pleasant. NECK: no carotid bruit, no obvious jugular venous distention. SKIN: no suspicious lesions, warm and dry. HEART: no murmurs, regular rate and rhythm. LUNGS: clear to auscultation bilaterally. ABDOMEN: soft, nontender. EXTREMITIES: 1 to 2+ edema. PERIPHERAL PULSES: equal. NEUROLOGIC: No gross deficits, AAO X 3. Expressive aphasia. Office Procedures EKG Details: Sinus rhythm 67 beats per minute, nonspecific T-wave changes, QTC 445 milliseconds. [id number], Complete Assessment & Plan Assessment & Plan (1) Chronic diastolic heart failure: Code(s): I50.32 - Chronic diastolic (congestive) heart failure Category: Medical (2) Alcohol use disorder, severe, dependence: Code(s): F10.20 - Alcohol dependence, uncomplicated Category: Medical Plan 64 year gentleman here for follow-up. He has background history of cardiac arrest with asystole in 10/26/2021 in the setting of hyperkalemia and kidney injury. Subsequently was bradycardic and had some conduction issues which improved after potassium improved. He was seen in the office and was doing okay in November of 2023. 07/29/2024 he got admitted to [facility] with congestive heart failure right more than left-sided. He has known history of alcohol use and cirrhosis. He was diuresed and eventually discharged home. He also had hypercapnic respiratory failure. Overall volume status appears to be okay. He has chronic lower extremity edema which is persistent but he was describing more anasarca during his hospitalization which definitely has improved. Blood pressure is elevated and I have advised him that he needs to quit alcohol completely. Increasing losartan to 25 mg twice a day. He will see us back in 4 months. Thank you for allowing me to participate in the care of your patient. Please feel free to contact me if you have any questions. Medications: Changed From losartan 25 mg PO DAILY To losartan 25 mg PO BID 120 tabs 4RF Coding Level of Care Code Est Pt Level 4 (82419) Diagnoses Chronic diastolic heart failure I50.32 Alcohol use disorder, severe, dependence F10.20 CPT Codes EKG - CPT: 33005-Nmfpocexcloalacba, Complete ([id number])
[2024-08-16 09:31] VITALS: BP 140/64; PULSE 67; BMI 36.1
--- OUTSIDE RECORDS SUMMARY | 2024-08-16 10:11 | XMS_ITS | Clinical Summary ---
Author Organization [facility] Address [address] [place] [address] Care Team Providers Care Customer Operations Intern Name Role Phone Yair Crenshaw MD Primary Care Provider Source Comments PLEASE NOTE, if this patient is a minor, it may be UNLAWFUL to discuss sensitive information that is contained in these records (such as FAMILY PLANNING, MENTAL HEALTH or SUBSTANCE ABUSE) with the minor patient's parent or other person without the patient's specific authorization.[facility] Allergies No known active allergies Medications aspirin [address] 81 mg into mouth, chew and swallow once daily. Active omeprazole (PRILOSEC) 20 mg tabletIndicatio ns:heartburn Take 20 mg by mouth once daily. Indications: Heartburn Active Active Problems Problem Noted Date Diagnosed Date Hypercholesteremia 07/21/2013 Cardiomegaly 07/21/2013 Chest pain syndrome 07/21/2013 Alcoholism ([facility]) 07/21/2013 Social History Tobacco Use Types Packs/Day Years Used Date Smoking Tobacco: Never Assessed Sex and Gender Information Value Date Recorded Sex Assigned at Not on file Legal Sex Male 6:42 AM PST Gender Identity Not on file Sexual Orientation Not on file Last Filed Vital Signs Vital Sign Reading Time Taken Comments Blood Pressure 124/88 07/21/2013 4:21 PM EST Pulse 60 07/21/2013 4:21 PM EST Temperature 36.9 ??C (98.4 ??F) 07/21/2013 4:21 PM ES T Respiratory Rate 16 07/21/2013 4:21 PM EST Oxygen Saturation - - Inhaled Oxygen Concentration - - Weight - - Height - - Body Mass Index - - Plan of Treatment Not on file Insurance [facility] Member Subscriber Plan / Payer (Ef fective 2013-Present) Name:Isael Britton Relation to Subscriber:Self Name:Isael Britton Payer ID:[id number] Group ID:Not on file Type:[place]emnimaryan Address: [address] [place], [place] [id number] Care Teams Customer Operations Intern Relationship Specialty Start Date End Date Yair Crenshaw MD [id number] [place] [phone] PCP - General Internal Medicine 07/21/13
--- OUTSIDE RECORDS SUMMARY | 2024-08-16 10:12 | XMS_ITS | Encounter Summary ---
Author Organization [employer] Address [address] [place] [address] Care Team Providers Care Coal Or Ore Controller Name Role Phone Nelly Bach MD Primary Care Provider + Encounter Details Date Type Department Care Team (Latest Contact Info) Description 08/12/2024 Outside Procedure [facility] OPTOMETRY [address] [place] [address] Ravindra, Selma, OD [address] [place], [place] [phone] Presbyopia (Primary Dx) Social History Tobacco Use Types Packs/Day Years [...] of this encounter Progress Notes * Selma Waite OD - 08/12/2024 12:17 PM EST MH glasses were dispensed, 2 of 2. documented in this encounter Plan of Treatment Upcoming Encounters Date Type Department Care Team (Late st Contact Info) Description 08/27/2024 11:30 AM EDT Office Visit [facility] MEDICINE [address] [place] [phone] Nelly Bach MD [address] [place] [phone] documented as of this encounter Visit Diagnoses Diagnosis Presbyopia- Primary documented in this encounter Care Teams Coal Or Ore Controller Relationship Specialty Start Date End Date Nelly Bach MD [address] [place] [phone] PCP - General Family Medicine 06/19/18 documented as of this encounter
--- OUTSIDE RECORDS SUMMARY | 2024-08-16 10:12 | XMS_ITS | Encounter Summary ---
Author Organization [employer] Address [address] [place] [address] Care Team Providers Care Machine Burrer Name Role Phone Nelly Bach MD Primary Care Provider + Reason for Visit * Reason Onset Date Comments [employer] 08/09/2024 U nderwear, protective Prevail Encounter Details Date Type Department Care Team (Late st Contact Info) Description 08/09/2024 Telephone [facility] MEDICINE [address] [place] [address] Nelly Bach MD [address] [place] [address] [employer] (Underwear, protective Prevail) Social History Tobacco Use Types Packs/Day Years [...] AM EDT documented as of this encounter Miscellaneous Notes * Telephone Encounter - Farzana Mclaughlin MA - 08/12/2024 8:41 AM EST Form has been signed by the PCP and faxed to [employer]. Form has been sent in for scanning. * Telephone Encounter - Farzana Mclaughlin MA - 08/09/2024 3:10 PM EST Received medical necessity form from [employer] for Underwear, protective Prevail. Form has been filled out and placed on PCP desk for signature. documented in this encounter Plan of Treatment Upcoming Encounters Date Type Department Care Team (Late st Contact Info) Description 08/27/2024 11:30 AM EDT Office Visit [facility] MEDICINE [address] [place] [address] Nelly Bach MD [address] [place] [address] documented as of this encounter Visit Diagnoses Not on filedocumented in this encounter Care Teams Machine Burrer Relationship Specialty Start Date End Date Nelly Bach MD [address] [place] [address] PCP - General Family Medicine 06/19/18 documented as of this encounter
--- OUTSIDE RECORDS SUMMARY | 2024-08-16 10:12 | XMS_ITS | Encounter Summary ---
Author Organization [employer] Address [address] [place] [address] Care Team Providers Care Material Handling Equipment Stevedore Name Role Phone Nelly Bach MD Primary Care Provider + Encounter Details Date Type Department Care Team (Late st Contact Info) Description 08/11/2024 10:15 AM EST Office Visit [facility] OPTOMETRY [address] [place], [place] [phone] Ravindra, Selma, OD [address] [place], [place] [phone] Regular astigmatism of both eyes (Primary Dx) Social History Tobacco Use Types [...] Progress Notes * Selma Waite OD - 08/11/2024 10:15 AM EST MH glasses were dispensed, 1 of 2. documented in this encounter Plan of Treatment Upcoming Encounters Date Type Department Care Team (Late st Contact Info) Description 08/27/2024 11:30 AM EDT Office Visit [facility] MEDICINE [address] [place] [phone] Nelly Bach MD [address] [place] [phone] documented as of this encounter Visit Diagnoses Diagnosis Regular astigmatism of both eyes- Primary documented in this encounter Care Teams Material Handling Equipment Stevedore Relationship Specialty Start Date End Date Nelly Bach MD [address] [place] [phone] PCP - General Family Medicine 06/19/18 documented as of this encounter
--- OUTSIDE RECORDS SUMMARY | 2024-08-16 10:12 | XMS_ITS | Encounter Summary ---
Author Organization [employer] Address [address] [place] [address] Care Team Providers Care Delivery Aide Name Role Phone Nelly Bach MD Primary Care Provider + Reason for Visit * Reason Comments Transition Of Care (Tcm) HDF unscheduled Encounter Details Date Type Department Care Team ([facility] st Contact Info) Description 07/22/2024 Patient Outreach [facility] MEDICINE [address] [place] [address] Nelly Bach MD [address] [place] [address] Transition Of Care (Tcm) (HDF unscheduled) Social History Tobacco Use Types Packs/Day Years [...] as of this encounter Miscellaneous Notes * Significant Event - Cherise Sommers - 07/22/2024 8:47 AM EST 07/22/24 0845 Hospital Discharges and Admission for [facility] Type of Visit Hospital Admission Date of Admission/Visit 07/17/24 Date of Discharge 07/21/24 [facility] Diagnosis Shortness Of Breath Disposition Discharged Home Follow-Up Actions Follow-Up Needed Provider appointment Follow-Up Outcome Spoke to Patient Initial Contact Date 07/22/24 MERI Luong placed outbound call to patient for HDF outreach. Patient's name and were confirmed. Patient educated on the importance of follow up with provider following inpatient admission. Patientoffered an HDF appt. Patient declined an appointment. [facility]. Patient educated on extended clinic hours on Mondays and Wednesdays, and Walk-In Urgent Care Located in [facility] of [facility]. Patient provided with after-hours line for [facility], , which offer night time triage service and option to transfer to probation supervisor provider if needed. [facility] discharge summary has been scanned into chart ready for review documented in this encounter Plan of Treatment Upcoming Encounters Date Type Department Care Team (Late st Contact Info) Description 08/27/2024 11:30 AM EDT Office Visit [facility] MEDICINE [address] [place] [address] Nelly Bach MD [address] [place] [address] documented as of this encounter Visit Diagnoses Not on filedocumented in this encounter Care Teams Delivery Aide Relationship Specialty Start Date End Date Nelly Bach MD [address] [place] [address] PCP - General Family Medicine 06/19/18 documented as of this encounter
--- OUTSIDE RECORDS SUMMARY | 2024-08-16 10:12 | XMS_ITS | Clinical Summary ---
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 Devices (Pulse Oximeter For Finger) misc -Use daily and as needed to check O2 sats 01/31/20 22 Active methadone (Dolophine) 10 MG/5ML solution Take 55 mg by mouth Once per day. [facility] Methadone clinic Active naloxone (Narcan) 4 mg/0.1 [...] pain 100 g 1 03/04/20 23 Active sennosides (Senna Lax) 8.6 MG tablet [...] disease, without long-term current use of insulin ([facility]) TAKE 1 TABLET BY MOUTH EVERY MORNING 30 tablet 11 03/15/20 24 Active TRUEplus Lancets 33G misc TEST BLOOD SUGAR TWICE DAILY 100 each 5 03/15/20 24 Active FREESTYLE LITE test stripIndication s:Controlled type 2 diabetes mellitus with stage 3 chronic kidney disease, without long-term current use of insulin ([facility]) TEST BLOOD SUGAR TWICE DAILY IN THE MORNING AND AT BEDTIME 150 strip 5 03/15/20 24 Active furosemide (Lasix) 20 MG tabletIndicatio ns:Chronic systolic congestive heart failure ([facility]) TAKE 1 TABLET BY MOUTH EVERY MORNING 90 tablet 1 04/13/20 24 Active ipratropium-alb uterol (Combivent Respimat) 20-100 MCG/ACT inhalerIndicati ons:Chronic obstructive pulmonary disease, unspecified COPD type ([facility]) INHALE 1 PUFF BY MOUTH FOUR [...] by mouth at bedtime. 04/12/20 24 Active thiamine (Vitamin B-1) 100 MG tabletIndicatio ns:Alcoholism ([facility]) TAKE 1 TABLET BY MOUTH EVERY MORNING 90 tablet 3 07/28/19 25 Active folic acid (Folvite) 1 MG tabletIndicatio ns:Alcoholism ([facility]/HCC) TAKE 1 TABLET BY MOUTH EVERY MORNING 90 tablet 3 07/28/19 25 Active thiamine (Vitamin B-1) 100 MG tabletIndicatio ns:Alcoholism (CMS/HCC) TAKE 1 TABLET BY MOUTH EVERY MORNING 90 tablet 3 07/16/19 24 025 Discontinued folic acid (Folvite) 1 MG tabletIndicatio ns:Alcoholism (CMS/HCC) TAKE 1 TABLET BY MOUTH EVERY MORNING 90 tablet 3 07/16/19 24 025 Discontinued Active Problems Patient Care [...] EDT): Pt agreed to be referred to [facility] program Counseled to cut down alcohol slowly to avoid withdrawal Continue folic acid + D1 Assessment & Plan (12/12/2022 1:02 PM EDT): recent relapse last month that led to CHF his last COPD exacerbation counseled to avoid alcohol counseled to fu closely with [facility] counselor declined referral to [facility] program was [...] + O2 2 L NC supplementation 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 He [...] O2 2L NC. He was advised to picker operator CPAP and start using it ever night [...] Plan (03/04/2023 2:26 PM EDT): FU by [facility] cardiology Recent echo showed EF 66% wm [...] using CPAP every night, he will call [employer] to deliver fixed CPAP machine Assessment & [...] occasional cravings counseled to fu closely with [facility] methadone program and assistant coach Assessment & Plan (08/28/2022 12:44 PM EDT): [...] Encounters Date Type Department Care Team Description 08/12/2024 Outside Procedure [facility] [address] [place] [address] Selma Waite, OD Presbyopia (Primary Dx) 08/11/2024 10:15 AM EST Office Visit [facility] [address] [place] [address] Selma Waite, OD Regular astigmatism of both eyes (Primary Dx) 08/09/2024 Telephone [facility] [address] [place] [address] Nelly Bach MD [facility] (Underwear, protective Prevail) 07/28/2024 Refill [facility] [address] [facility] [place] [address] Nelly Bach MD Alcoholism ([facility]) 07/22/2024 Patient Outreach [facility] [address] [facility] [place] [address] Nelly Bach MD Transition Of Care (Tcm) (HDF unscheduled) 07/04/2024 Refill [facility] [address] [place] [address] Nelly Bach MD 06/24/2024 10:30 AM EST Office Visit [facility] [address] [place] [address] Ravindra, Selma, OD Type 2 diabetes mellitus without ophthalmic manifestations ([facility]/HCC) (Primary Dx); Age-related nuclear cataract of both eyes; Presbyopia 06/24/2024 Travel 06/23/2024 Refill [facility] [address] [place] [address] Alisia Miles DO Chronic obstructive pulmonary disease, unspecified COPD type (CMS/HCC) 06/07/2024 Telephone [facility] [address] [place] [address] Nelly Bach MD No Show 06/04/2024 Telephone [facility] [address] [place] [address] Lisbet Mendez MA Chart prep 05/28/2024 Orders Only GENERIC EXTERNAL DATA DEPARTMENT Provider, Generic External Data 05/27/2024 Patient Outreach [facility] [address] [place], [place] [phone] Nelly Bach MD Pre-visit Planning ([facility] screening is completed) from Last 3 Months [...] t he electric, gas, oil or water [employer] threatened to shut off services in your [...] Description 08/27/2024 11:30 AM EDT Office Visit [facility] [address] [place] [address] Nelly Bach MD [address] [place] [address] Health Maintenance Due Date Last Done Comments [...] 12/12/2022, Additional history exists Diabetes: Hemoglobin A1C 07/04/2024 024, 08/29/2023, 03/04/2023, Additional history exists Alcohol/Substance Use Screening 08/28/2024 08/29/2023 Depression Screening 08/28/2024 08/29/2023, 08/29/19 24 SDOH Screening 08/28/2024 08/29/2023 Lipid Panel 05/28/2025 [...] EST Narrative 06/10/2024 5:36 PM EST ? [facility] ?[address] ?[place] [address] ? CT Scan Report ? Signed with Addenda ? Patient: Isael Britton ?MR#: [id number] ? : 1960 ?Acct:[id number] ? Age/Sex: 63 / M ?ADM Date: 06/10/24 ? Loc: HO.CT ? Attending Dr: Taryn Jerez [employer] ? Ordering Physician: Taryn Jerez [employer] ?? Date of Service: 06/10/24 ?? Procedure(s): CT abdomen pelvis wo IV con ?? Accession Number(s): [id number] ? cc: Nelly Bach MD; Taryn Jerez [employer] ? Report Number: ?? [id number]: Total DLP = ??717.00 mGy-cm ?ADDENDUM ?? [...] signed by Sergo Ortiz MD in OV> ?06/14/241407 ?? Addendum Cosigned By: ? DD/ /03/1734 [...] ?06/10/24 1736 ? DD/ 1735 ? TD/TT: 06/10/24 1735 ? Racing Secretary: ? Procedure Note Dongabrielter, Image - 06/14/[address] [place] [address] [address] Scan Report Signed with Addenda Patient: Isael Britton AMR#: [id number] : 1960Acct:[id number] Age/Sex: 63 / MADM Date: 06/10/24 Loc: HO.CT Attending Dr: Taryn Jerez [facility]- Ordering Physician: Taryn Jerez [facility]- Date of Service: 06/10/24 Procedure(s): CT abdomen pelvis wo IV con Accession Number(s): [id number] cc: Nelly Bach MD; Taryn Jerez [facility]- Report Number: [id number]: Total DLP = 717.00 mGy-cm ADDENDUM 06/10/2024 [...] signed by Sergo Ortiz MD in OV> 06/10/241735 DD/ 34 TD/TT: 06/10/241734 Racing Secretary: [facility] External Provider IMG CT PROCEDURES Edited Result - Final * Hold Green Gel (05/28/2024 2:12 PM EST) Hold Green Gel See Note [facility] Comment:Specimen held untest ed for 24 hours; Call to requestChemistry testing. 05/28/2024 2:12 PM EST 05/28/2024 2:12 PM EST Generic External Data Provider HISTORICAL/NON OR DERABLE LABS Final Result [facility] [address] [place] [address] [phone] * (ABNORMAL) VITAMIN D 25-OH (D2 AND D3) (05/28/2024 2:12 PM EST) Vitamin D, 25-OH, D2 4 ng/mL [facility] Comment:This test was develo ped and its analytical performancecharacteristics have been determined by [employer] [place], [place]. It hasnot been cleared or approved by the .. Food and DrugAdministration. This assay has been validated pursuantto the CLIA regulations and is used for clinicalpurposes.THIS TEST WAS PERFORMED AT:[employer] [id number] [place] [address]HRGCBNIMARIO CARRIZALES MD,PHD Vitamin D, 25-OH, D3 9 ng/mL [facility] Comment:This test was develo ped and its analytical performancecharacteristics have been determined by [employer] [place], [place]. It hasnot been cleared or approved by the U.S. Food and DrugAdministration. This assay has been validated pursuantto the CLIA regulations and is used for clinicalpurposes. Vitamin D, 25-OH, Total 13(A) 30 - 100 ng/mL [facility] Comment:Vitamin D, 25-Hydrox y reports [...] = 30 ng/mL.For additional information, please refer tohttp://education.[employer]/faq/DBL045(This link is being provided for informational/educational purposes only.) 05/28/2024 2:12 PM EST 05/28/2024 2:12 PM EST us Generic External Data Provider LAB BLOOD ORDERAB LES Final Result Performing Organization Address City/[facility]/ZIP Co de Phone Number [facility] [address] [place] [phone] * Vitamin B12 (Cobalamin) and Folate Panel, Serum (05/28/2024 2:12 PM EST) Vitamin B12 438 200 - 900 pg/mL [facility] Comment:NORMAL 200-900 PG/ML INDETERMINATE 160-199 PG/ML DEFICIENT < 160 PG/ML Folate 18.3 > or = 4.0 ng/mL [facility] Comment:Reference Values:> o r = 4.0 ng/mL< 4.0 ng/mL suggests folate deficiency Methotrexate, aminopterin and folinic acid(leucovorin) are chemotherapeutic agents whose molecularstructures are similar to folate; therefore, the Architectfolate assay cannot be used for patients using these drugs. 05/28/2024 2:12 PM EST 05/28/2024 2:12 PM EST Generic External Data Provider LAB BLOOD ORDERAB LES Final Result Performing Organization Address [facility] Co de Phone Number [facility] [address] [place] [phone] * TSH with Reflex to Free T4 (05/28/2024 2:12 PM EST) TSH reflex Free T4 1.21 0.32 - 4.0 uIU/mL [facility] 05/28/2024 2:12 PM EST 05/28/2024 2:12 PM EST Generic External Data Provider LAB BLOOD ORDERAB LES Final Result Performing Organization Address City/[facility] Co de Phone Number [facility] [address] [place] [phone] * (ABNORMAL) Liver Fibrosis (HCV), FibroTest-ActiTest Panel (05/28/2024 2:12 PM EST) Liver Fibrosis Score 0.28 [facility] Liver Fibrosis Stage F1 [facility] Liver Fibrosis Interpretation SEE NOTE [facility] Comment:minimal fibrosisFibr o Test Score [...] (severe fibrosis) Nec Inflam Act Score 0.10 [facility] Nec Inflam Act Grade A0 [facility] Nec Inflam Act Interpretation SEE NOTE [facility] Comment:no activityActiTest Score (a) Metavir Score a>=0 and a<=0.17 : A0 (no activity)a>0.17 and a<=0.29 : A0-A1 (no activity)a>0.29 and a<=0.36 : A1 (minimal activity)a>0.36 and a<=0.52 : A1-A2 (minimal activity)a>0.52 and a<=0.60 : A2 (significant activity)a>0.60 and a<=0.62 : A2-A3 (significant activity)a>0.62 and a<=1.00 : A3 (severe activity) BQH-Azkuo-6-Macroglo bulin 165 106 - 279 mg/dL [facility] FIB-Haptoglobin 154 43 - 212 mg/dL [facility] FIB-Apolipoprotein A1 243(A) 94 - 176 mg/dL [facility] FIB-Total Bilirubin 0.6 0.2 - 1.2 mg/dL [facility] FIB-GGT 805(A) 3 - 70 U/L [facility] FIB-ALT 24 9 - 46 U/L [facility] Reference ID [id number] [facility] Footnote SEE NOTE [facility] Comment: The reliability of results [...] and C.The performance characteristics have been determined by[facility]. Ithas not been cleared or approved by the U.S. Food and DrugAdministration. Performance characteristics refer to theanalytical performance of the test.[employer], [employer], the associated logo, [employer] and all associated [employer] pugh are theregistered trademarks of [employer]. All third partymarks - (R) and (TM) - are the property of their respectiveowners. (C) [id number] [employer]orporated. Allrights reserved.THIS TEST WAS PERFORMED AT:[employer] [id number] [facility] [place] ??[address]BAVTOEDITH LEE MD,PHD,IDA 05/28/2024 2:12 PM EST 05/28/2024 2:12 PM EST us Generic External Data Provider LAB BLOOD ORDERAB LES Final Result [facility] [address] [place] [phone] * Hepatitis C Viral RNA, Quantitative, Real-Time PCR (05/28/2024 2:12 PM EST) Pathologist [facility] Hepatitis C Viral Load <15 NOT DETECTED NOT DETECTED IU/mL [facility] HCV Log PCR <1.18 NOT DETECTED NOT DETECTED Log IU/mL [facility] Comment:For additional infor ramiro, please refer tohttp://education.curated.by/faq/GNL07b2(This link is being provided for informational/educational purposes only.)THIS TEST WAS PERFORMED AT:[employer] [place] [phone] HAAS MD 05/28/2024 2:12 PM EST 05/28/2024 2:12 PM EST us Generic External Data Provider LAB BLOOD ORDERAB LES Final Result Performing Organization Address City/[facility]/ZIP Co de Phone Number [facility] [address] [place] [phone] * Iron And Total Iron Binding Capacity (05/28/2024 2:12 PM EST) [facility] Iron 46 45 - 160 mcg/dL [facility] Total Iron Binding Capacity 291 228 - 428 mcg/dL [facility] Percent Iron Saturation 16 15 - 50 % [facility] Unsaturated Iron Binding 245 ug/dL [facility] 05/28/2024 2:12 PM EST 05/28/2024 2:12 PM EST us Generic External Data Provider LAB BLOOD ORDERAB LES Final Result Performing Organization Address [facility] Co de Phone Number [facility] [address] [place] [phone] * Actin (Smooth Muscle) Antibody (IgG) (05/28/2024 2:12 PM EST) [facility] Smooth Muscle Antibody <20 <20 U [facility] Comment:Reference Range: <20 U: Negative>or=20 [...] with AIH type 1.THIS TEST WAS PERFORMED AT:[employer]/[facility] [place] [address]TSCJTLSMARIO CARRIZALES MD,PHD 05/28/2024 2:12 PM EST 05/28/2024 2:12 PM EST Generic External Data Provider LAB BLOOD ORDERAB LES Final Result Performing Organization Address [facility] Co de Phone Number [facility] [address] [place] [address] [phone] * Tissue Transglutaminase Antibody, IgA (05/28/2024 2:12 PM EST) Transglutaminase IgA 2.2 U/mL [facility] Comment:Value Interpretation ----- <15.0 Antibody not detected> or = 15.0 Antibody detectedTHIS TEST WAS PERFORMED AT:[employer] [address] [address]CJIZDATILIO HAAS MD 05/28/2024 2:12 PM EST 05/28/2024 2:12 PM EST Generic External Data Provider LAB BLOOD ORDERAB LES Final Result Performing Organization Address [facility] Co de Phone Number [facility] [address] [place] [address] [phone] * Ceruloplasmin (05/28/2024 2:12 PM EST) Ceruloplasmin 28 14 - 30 mg/dL [facility] Comment:THIS TEST WAS PERFOR MED AT:[employer] [address] [address]MEMGBATILIO HAAS MD 05/28/2024 2:1 2 PM EST 05/28/2024 2:12 PM EST Generic External Data Provider LAB BLOOD ORDERAB LES Final Result Performing Organization Address [facility] de Phone Number [facility] [address] [place] [phone] * Alpha-Fetoprotein, Tumor Marker (05/28/2024 2:12 PM EST) Alpha Fetoprotein 4.3 <6.1 ng/mL [facility] Comment:This test was perfor med using the Kathie Coulterchemiluminescent method. Values obtained fromdifferent assay methods cannot be usedinterchangeably. AFP levels, regardless ofvalue, should not be interpreted as absoluteevidence of the presence or absence of disease.THIS TEST WAS PERFORMED AT:[employer] [address] [address]VMSWCATILIO HAAS MD 05/28/2024 2:12 PM EST 05/28/2024 2:12 PM EST Generic External Data Provider LAB BLOOD ORDERAB LES Final Result Performing Organization Address [facility] Number [facility] [address] [place] [phone] * Liver Kidney Microsomal (LKM-1) Antibody??(IgG) (05/28/2024 2:12 PM EST) Liver Kidney Microsomal (LKM-1) Antibody IgG <=20.0 <=20.0 U [facility] Comment:Reference Range: <=2 0.0 Negative [...] patients with hepatitis Cinfection.THIS TEST WAS PERFORMED AT:[employer]/[facility] [id number] [place] [address]FEGMCBUMARIO CARRIZALES MD,PHD 05/28/2024 2:12 PM EST 05/28/2024 2:12 PM EST Generic External Data Provider LAB BLOOD ORDERAB LES Final Result Performing Organization Address [facility] Co de Phone Number [facility] [address] [place] [address] [phone] * Mitochondrial Antibody with Reflex to Titer (05/28/2024 2:12 PM EST) Pathologist [facility] Mitochondrial Antibodies NEGATIVE NEGATIVE [facility] Comment:THIS TEST WAS PERFOR MED AT:[employer] [address] [address]SUPQPATILIO HAAS MD Mitochondrial Ab Titer TNP [facility] 05/28/2024 2:12 PM EST 05/28/2024 2:12 PM EST Generic External Data Provider LAB BLOOD ORDERAB LES Final Result Performing Organization Address [facility] Co de Phone Number [facility] [address] [place] [phone] * (ABNORMAL) Sed Rate by Modified Radharen (05/28/2024 2:12 PM EST) Pathologist [facility] Erythrocyte Sedimentation Rate 28(H) 0 - 15 MM/HR [facility] Comment:Patients with polycy themia and many hemoglobin abnormalitiesmay have depressed sed rates whereas patients with anemiamay have elevated sed rates. 05/28/2024 2:12 PM EST 05/28/2024 2:12 PM EST us Generic External Data Provider LAB BLOOD ORDERAB LES Final Result Performing Organization Address City/[facility]/ZIP Co de Phone Number [facility] [address] [place] [phone] * (ABNORMAL) CBC (05/28/2024 2:12 PM EST) White Blood Count 9.6 4.8 - 10.8 X10*3/uL [facility] Red Blood Count 4.58(L) 4.60 - 5.80 X10*6/uL [facility] Hemoglobin 13.4(L) 14.0 - 18.0 g/dl [facility] Hematocrit 42.5 42.0 - 52.0 % [facility] Mean Corpuscular Volume 92.8 80.0 - 98.0 fL [facility] Mean Corpuscular Hemoglobin 29.3 27.0 - 33.0 pg [facility] Mean Corpuscular HGB Conc 31.5 31.0 - 36.0 g/dl [facility] Red Cell Distribution Width 15.6 11.0 - 16.0 % [facility] Platelet Count 179 160 - 400 X10*3/uL [facility] Mean Platelet Volume 10.0 9.4 - 12.4 fL [facility] NRBC Pct Auto 0.0 0.0 - 0.2 /100WBC [facility] NRBC Abs Auto 0.000 0.0 - 0.012 X10*3/uL [facility] 05/28/2024 2:12 PM EST 05/28/2024 2:12 PM EST us Generic External Data Provider LAB BLOOD ORDERAB LES Final Result Performing Organization Address City/[facility]/ZIP Co de Phone Number [facility] [address] [place] [phone] * (ABNORMAL) C-reactive Protein (05/28/2024 2:12 PM EST) C Reactive Protein 3.34(H) < or = 0.50 mg/dL [facility] 05/28/2024 2:12 PM EST 05/28/2024 2:12 PM EST Generic External Data Provider LAB BLOOD ORDERAB LES Final Result Performing Organization Address [facility] Phone Number [facility] [address] [place] [phone] * Magnesium (05/28/2024 2:12 PM EST) [facility] Magnesium 2.1 1.6 - 2.6 mg/dL [facility] 05/28/2024 2:12 PM EST 05/28/2024 2:12 PM EST Generic External Data Provider LAB BLOOD ORDERAB LES Final Result Performing Organization Address [facility] Phone Number [facility] [address] [place] [phone] * Lipase (05/28/2024 2:12 PM EST) Pathologist [facility] Lipase 24 8 - 78 U/L [facility] 05/28/2024 2:12 PM EST 05/28/2024 2:12 PM EST Generic External Data Provider LAB BLOOD ORDERAB LES Final Result Performing Organization Address [facility] Phone Number [facility] [address] [place] [phone] * (ABNORMAL) Gamma Glutamyl Transferase (GGT) (05/28/2024 2:12 PM EST) [facility] Gamma Glutamyl Transpeptidase 1,005(H) 11 - 51 U/L [facility] 05/28/2024 2:12 PM EST 05/28/2024 2:12 PM EST us Generic External Data Provider LAB BLOOD ORDERAB LES Final Result Performing Organization Address [facility]/ZIP Co de Phone Number [facility] [address] [place] [phone] * Ferritin (05/28/2024 2:12 PM EST) Ferritin 175 20 - 250 ng/mL [facility] 05/28/2024 2:12 PM EST 05/28/2024 2:12 PM EST Generic External Data Provider LAB BLOOD ORDERAB LES Final Result Performing Organization Address [facility] Co ne Phone Number [facility] [address] [place] [phone] * Hepatic Function Panel (05/28/2024 2:12 PM EST) Bilirubin, Direct 0.3 0.0 - 0.5 mg/dL [facility] 05/28/2024 2:12 PM EST 05/28/2024 2:12 PM EST Generic External Data Provider LAB BLOOD ORDERAB LES Final Result Performing Organization Address [facility] Co de Phone Number [facility] [address] [place] [phone] * (ABNORMAL) Lipid Panel, Standard (05/28/2024 2:12 PM EST) Triglycerides 175(H) <150 mg/dL [facility] Comment:Desirable Triglyceri de: less than 150 mg/dLBorderline High Triglyceride 150-199 mg/dLHigh Triglyceride: 200-499 mg/dLVery High Triglyceride: greater than or equal to 5OO mg/dL Cholesterol 262(H) <200 mg/dL [facility] Comment:Desirable Cholestero l: less than 200 mg/dLBorderline High Cholesterol: 200-239 mg/dLHigh Cholesterol: greater than 239 mg/dL LDL Cholesterol Calculated 141(H) <100 mg/dL [facility] Comment:Desirable LDL: less than 100 mg/dLNear Optimal/Above Optimal LDL: 110- 129 mg/dLBorderline High LDL: 130-159 mg/dLHigh LDL: 160-189 mg/dLVery High LDL: greater than or equal to 190 mg/dL HDL Cholesterol 86 >40 mg/dL [facility] Comment:Desirable HDL: great er than 40 mg/dL Note: This HDL assay may give artificially low results in patients with liver disease. 05/28/2024 2:12 PM EST 05/28/2024 2:12 PM EST us Generic External Data Provider LAB BLOOD ORDERAB LES Final Result [facility] [address] [place] [phone] [phone] * (ABNORMAL) Comprehensive Metabolic Panel (05/28/2024 2:12 PM EST) Sodium 140 135 - 145 mmol/L [facility] Potassium 4.8 3.3 - 5.1 mmol/L [facility] Chloride 103 96 - 108 mmol/L [facility] Carbon Dioxide 27 22 - 29 mmol/L [facility] Anion Gap 15 12 - 20 [facility] Urea Nitrogen (BUN) 19(H) 9 - 16 mg/dL [facility] Creatinine, Serum 1.51(H) 0.5 - 1.4 mg/dL [facility] Estimated Glomerular Filt Rate 47 [facility] Comment:Chronic Kidney Disea se: Estimated GFR < 60 mL/min/1.45w7Xpygto Kidney Disease: Estimated GFR < 15 mL/min/1.73m2 Glucose 160(H) 60 - 115 mg/dL [facility] Calcium 9.5 8.4 - 10.2 mg/dL [facility] Bilirubin, Total 0.7 0.0 - 1.0 mg/dL [facility] Aspartate Amino Transferase 36 5 - 37 U/L [facility] Alanine Aminotransferase 37 0 - 40 U/L [facility] Total Protein 8.4(H) 6.5 - 8.0 g/dL [facility] Albumin Level 4.0 3.5 - 5.0 g/dL [facility] Alkaline Phosphatase 148(H) 39 - 117 U/L [facility] 05/28/2024 2:12 PM EST 05/28/2024 2:12 PM EST us Generic External Data Provider LAB BLOOD ORDERAB LES Final Result Performing Organization Address [facility]/ZIP Co de Phone Number [facility] [address] [place] [address] [phone] * HIV-1/2 Antigen and Antibodies, Fourth Generation, with Reflexes (02/12/2024 11:07 AM EDT) HIV AB/AG Nonreactive Nonreactive [facility] Comment:HIV-1 p24 Ag and/or HIV-1/HIV-2 Ab not detected.A test result that is nonreactive does not exclude thepossibility of exposure to or infection with HIV-1 and/orHIV-2. Nonreactive results in this assay for individualswith prior exposure to HIV-1 and/or HIV-2 may be due toantigen and antibody levels that are below the limit ofdetection of this assay.The [employer] HIV Ag/Ab Combo assay result andsupplemental assay results should be interpreted inconjunction with the patient's clinical presentation,history and other laboratory results. If the results areinconsistent with clinical evidence, additional testing issuggested to confirm the result. Blood Venous blood specimen / Unknown 02/12/2024 11:07 AM EDT 02/12/2024 11:07 AM EDT us Nelly Bach MD LAB BLOOD ORDERABLES Fin al Result Performing Organization Address [facility]/ZIP Co de Phone Number [facility] [address] [place] [address] [phone] * (ABNORMAL) POCT HGB A1C (01/02/2024 11:09 AM EDT) Hemoglobin A1C 6.6(A) 4.0 - 6.0 % QC Media Lot # [id number] Lot# Expiration Date [id number] Blood 01/02/2024 11:0 9 AM EDT Nelly Bach MD POINT OF CARE TEST ENTER /EDIT ORDERABLES Final Result from Last 3 Months or Most Recently Relevant to Health Maintenance Insurance [place] [facility] * Guarantor: Isael Britton Account Type Relation to Patient Date of Phone Billing Address Personal/Family Self [place], [place] Care Teams Household 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
--- OUTSIDE RECORDS SUMMARY | 2024-08-16 10:12 | XMS_ITS | Encounter Summary ---
Author Organization [employer] Address [address] [place] [address] Care Team Providers Care Tool Room Attendant Name Role Phone Nelly Bach MD Primary Care Provider + Reason for Visit * Reason Comments Med Refill Encounter Details Date Type Department Care Team ([facility] st Contact Info) Description 07/28/2024 Refill [facility] [address] [place], [place] [phone] Nelly Bach MD [address] [place], [place] [phone] Alcoholism ([facility]) Social History Tobacco Use Types [...] Description 08/27/2024 11:30 AM EDT Office Visit [facility] [address] [place] [address] Nelly Bach MD [address] [place] [address] documented as of this encounter Visit Diagnoses Diagnosis Alcoholism (CMS/HCC) Other and unspecified alcohol dependence, unspecified drinking behavior documented in this encounter Care Teams Tool Room Attendant Relationship Specialty Start Date End Date Nelly Bach MD [address] [place] [address] [phone] PCP - General Family Medicine 06/19/18 documented as of this encounter
--- OUTSIDE RECORDS SUMMARY | 2024-08-16 10:12 | XMS_ITS | Clinical Summary ---
Author Organization [facility] Address [address] [address] Care Team Providers Care Curtain Supervisor Name Role Phone Nelly Bach MD Primary Care Provider + [phone] Allergies Active Allergy Reactions Criticality Noted Date [...] age to complete this topic Insurance [place] Care Teams Curtain Supervisor Relationship Specialty Start Date End Date Nelly Bach MD [address] [place] [phone] PCP - General 06/19/20
== END 2024-08-16 10:19 | disposition home or self-care (01) ==
PROVIDERS: PCP Internal Medicine; Visit Provider Internal Medicine Cardiovascular Disease
DX: I50.32 Chronic diastolic (congestive) heart failure (principal); F10.20 Alcohol dependence, uncomplicated
CPT/HCPCS: 93010; 99214

== ENCOUNTER → 2024-08-16 09:25 | Outpatient (BNVA) | payer MEDICAID, SELFPAY | PROVIDERS: PCP Internal Medicine; Visit Provider Internal Medicine Cardiovascular Disease | DX: I50.32 Chronic diastolic (congestive) heart failure (principal); F10.20 Alcohol dependence, uncomplicated | CPT/HCPCS: 93005; 99212 ==

== ENCOUNTER 2024-08-27 11:53 | Outpatient (REF) | payer MEDICAID, SELFPAY ==
[2024-08-27 13:58] LABS: Anion Gap 12 (12-20); Blood Urea Nitrogen 26 mg/dL (9-16); Calcium 9.1 mg/dL (8.4-10.2); Carbon Dioxide 28 mmol/L (22-29); Chloride 106 mmol/L (96-108); Estimated Glomerular Filt Rate > 60; Glucose Random 155 mg/dL (60-115); Potassium 4.8 mmol/L (3.3-5.1); Sodium 141 mmol/L (135-145)
== END 2024-08-27 11:54 | disposition home or self-care (01) ==
LOC: HO.HHCL 11:53
PROVIDERS: Visit Provider Internal Medicine
DX: I50.32 Chronic diastolic (congestive) heart failure (principal)
CPT/HCPCS: 36415; 80048

== ENCOUNTER 2024-09-22 09:54 | Outpatient (AMB) | payer MEDICAID, SELFPAY ==
--- NOTE | 2024-09-22 09:59 | A.OFFVIS_ITS ---
Vital Signs 09/22/24 10:00 Height 5 ft 8 in BP 150/88 H Blood Pressure Location Lt brachial Position Sitting Pulse 63 Pulse Source Pulse Oximeter Pulse Oximetry (%) 93 Oxygen Delivery Method Nasal Cannula Intake Visit Reasons: Asthma/COPD Allergies aspirin [ASPIRIN] Allergy (Unknown, Verified 09/22/24 10:03) RASH ibuprofen Allergy (Unknown, Verified 09/22/24 10:03) nausea and vomiting HPI Comments Details: The patient is a 64 year-old gentleman with multiple comorbidities in cardiovascular risk factors who presents with worsening dyspnea on exertion. He has been noticing his breathing has been getting worse now for several months. it is mainly with activity. He denies any shortness of breath while lying flat. The patient has gained weight. He has also noticed lower extremity edema. He has been on diuretics. He does have significant daytime drowsiness. Patient has an Columbia score of 12/24. He naps in the afternoon every day. Patient also gets headaches in the morning. Apparently he was approved for sleep study but he failed to get the equipment due to the pandemic. At this point will really or the sleep study in view of his cardiovascular risk factors in his significant symptoms and findings. In addition to that the patient will have to get a pulmonary function study and chest x-ray to further address the shortness of breath. Will provide with a short-acting beta agonist as a trial to see if he gets any relief after using it. The patient is also plan to undergo a colonoscopy. Will have him undergo pulmonary function studies and follow-up with me 1st and then will give him the likely okay to wait for with the colonoscopy. 09/01/2023 the patient is here for a pulmonary follow-up visit. The patient overall has been doing fair. She continues use the oxygen with good effect. He has been on 2 L. He did try the pulse and does not seem to keep his oxygen within the normal ranges. Therefore will go ahead and keep him on the continues oxygen for now. He does have a small trial and is easy for him to carry the oxygen with. The patient currently is sleeping with oxygen. He did have a blood gas done back in beginning of August demonstrating a chronic hypercarbic respiratory failure with a pCO2 of 61 mmHg. He had been on BiPAP but the BiPAP was difficult for him to using it not seem to be effective for him. Therefore I am going to talk to the DME company to see about getting him a noninvasive ventilator. The patient does have a poor prognosis with this chronic hypercarbic respiratory failure and has a high risk for admissions to the hospital. Therefore, a noninvasive ventilator would allow him to have better gas exchange improve his prognosis and decrease hospitalizations. Will work with a local [employer] company in order to get him started on a astral noninvasive ventilator this time. The patient will continue to use his respiratory therapy for his obstructive airway disease. He also continues on his diuretics and his volume status is stable at this time. 02/05/2024 the patient is here for a pulmonary follow-up visit. The patient is feeling fairly well from a respiratory status. Does feel weak. He does have a wheelchair right now. The patient has been using noninvasive ventilator every night. The astral NIV has been very affecting beneficial for him. He does use it every night. He does have some myoclonus today some difficulty walking. Therefore will recheck his blood gas to make sure that his CO2 is within normal range. The patient also will continue with his nocturnal oxygen. The oxygen has been affecting beneficial. He is to continue every night. Patient also continue with cardioprotective medications. He does have some lower extremity edema and needs to continue diuresis as tolerated. 03/05/2024 the patient is here for a pulmonary follow-up visit. Overall he is doing okay. He continues use the noninvasive ventilator with good effect. The astral has been very affecting beneficial. He does use it every night. Does use a fullface mask. He is complaining about the oxygen concentrator. They Jaylen coming out warm and is bothering him. For now going to have him stop the oxygen altogether and just continue with the noninvasive ventilator. Will request [employer] to perform an overnight oximetry to see if he still needs the oxygen. He would like to streamline to 1 company. He rather use [employer]. Therefore will have him return the oxygen that he has [employer] this time. Will perform the overnight oximetry. If he does need oxygen will go ahead and request additional therapy. During the visit we did have go for 6 minute walk test the patient did not need oxygen supplementation with activity which is reassuring. We can reassess that further when he comes back in the next several months. The patient is to follow-up in 4-6 months at this time. 09/22/2024 the patient is here for a pulmonary follow-up visit. Overall he is doing okay although he is very short of breath with activity. His noninvasive ventilator was taken away because he was not using it apparently as much as he should have. Now right now he does not have anything at home except an old concentrator that is not clear who provide that for him. The patient is sleeping better he did have a blood gas at some point in early 2024 demonstrating improvement in his in his pCO2 altogether which is reassuring. During the visit we did go for a walking oximetry the patient did desaturate down to 86% with activity on room air. I did place him on 2 L pulse and then had to increase it to 3 L pulse to maintain a pulse ox of 92% with activity which she tolerated well. Therefore, going to request the [employer] company, [employer] provide him with a portable oxygen concentrator for better portability outside of the home specially with his walker and he has a hard time using the oxygen tanks in the 1st place. And he will have a concentrator for the home so he can continue using the oxygen. Once he status with the oxygen at nighttime we can go ahead and request a overnight oximetry to make sure that he is getting adequate oxygenation on the 2 L continuous at nighttime. The patient will return in 4 months. If he has any issues prior to this will call for an earlier assessment. [facility] Medical History Chronic idiopathic constipation GERD (gastroesophageal reflux disease) Opioid use disorder Asthma-COPD overlap syndrome Morbid obesity Chronic hypoxic respiratory failure Restrictive lung disease Obesity hypoventilation syndrome DARRIAN treated with BiPAP Chronic respiratory failure Acute respiratory failure with hypoxia History of opiate therapy Morbid obesity due to excess calories CKD (chronic kidney disease) stage 3, GFR 30-59 ml/min Liver cirrhosis DARRIAN (obstructive sleep apnea) Chronic kidney disease Congestive heart failure Diabetes Surgical History No pertinent past surgical history Family History Mother Cancer Diabetes Social History Household Members: Spouse Housing: House Do you presently have visiting nurse or other home services: Yes Alcohol intake: current Alcohol intake frequency: 3 or more drinks per day Alcohol type: hard liquor Comment: restraints Patient Tobacco Use Status: Never used Tobacco e-Cigarette/Vaping Use: Never Used Substance Use Type: Heroin service: No Current occupational status: disabled Review of Systems Const Denies chills, Denies fatigue, Denies fever(s), Denies weight gain and Denies weight loss ENT Denies dizziness Card Denies chest pain, Denies leg edema, Denies lightheadedness, Denies palpitations, Denies dyspnea on exertion, Denies orthopnea and Denies other Resp Denies cough and Denies dyspnea on exertion GI Denies hematochezia and Denies change in stool character Musc Denies abnormal gait, Denies muscle weakness, Denies numbness, Denies radiating pain into limb and Denies tingling Neuro Denies abnormal gait, Denies dizziness, Denies numbness and Denies tingling Endo Denies fatigue and Denies palpitations Physical Exam Vital Signs: Last Vital Signs Pulse 63 09/22/24 10:00 BP 150/88 H 09/22/24 10:00 Pulse Ox 93 09/22/24 10:00 Oxygen Delivery Method Nasal Cannula 09/22/24 10:00 Office Procedures 6 Minute Walk Time:: 18:49 SPO2 % at rest: 94 Pulse at rest: 79 SPO2 % during excercise: 86 Pulse during excercise: 99 Distance in yards walked: 150 Gregory Score: 5 Supplemental Oxygen: The patient desaturated to 86% with activity on RA, then placed on 2L/pulse and increased to 3L/pulse to keep pox 92% with activity 12101 - 6 Minute Walk Assessment & Plan Assessment & Plan (1) Dyspnea: Code(s): R06.00 - Dyspnea, unspecified Category: Medical Qualifiers: Dyspnea type: dyspnea on exertion Qualified Code(s): R06.00 - Dyspnea, unspecified (2) Asthma-COPD overlap syndrome: Code(s): J44.89 - Other specified chronic obstructive pulmonary disease Category: Medical Plan No longer on NIV start POC 3L/pulse with activity and 2l/min while sleeping. The POC will provided better and safer portability as the patient does rely on a walker and also has learning disability that can impair the use of the oxygen tanks Will need an overnight oximetry on 2L/min in the near future Continue with diuresis as tolerated follow-up in 4 months Coding Level of Care Code Est Pt Level 4 (92493) Complex EM visit Add On G2211 Diagnoses Dyspnea on exertion R06.00 Dyspnea type: dyspnea on exertion Asthma-COPD overlap syndrome J44.89 CPT Codes Coding ([id number]) Time Spent (min) 18
[2024-09-22 10:00] VITALS: BP 150/88; PULSE 63; O2SAT 93
--- OUTSIDE RECORDS SUMMARY | 2024-09-22 11:15 | XMS_ITS | Clinical Summary ---
Author Organization [employer] Address [address] [place] [address] Care Team Providers Care Bellmaker Name Role Phone Nelly Bach MD Primary Care Provider + Allergies Active Allergy Reactions Criticality Noted Date Comments Aspirin Rash Low 08/23/2022 Ibuprofen Nausea Only,Nausea And Vomiting,Other 10/18/2014 Medications Misc. Devices (Pulse Oximeter For Finger) misc -Use daily and as needed to check O2 sats 01/31/20 22 Active methadone (Dolophine) 10 MG/5ML solution Take 55 mg by mouth Once per day. [facility] Methadone clinic Active naloxone (Narcan) 4 mg/0.1 [...] 01/31/20 22 Active PARoxetine (Paxil) 20 MG tabletIndicati ons:Moderate episode of recurrent major depressive disorder (CMS/HCC) TAKE 1 TABLET BY MOUTH EVERY MORNING 30 tablet 01/04/20 23 Active sennosides (Senna Lax) 8.6 MG [...] capsule 01/02/20 24 025 Active Jardiance 25 MGIndications: Controlled type 2 diabetes mellitus with stage 3 chronic kidney disease, without long-term current use of insulin ([facility]) TAKE 1 TABLET BY MOUTH EVERY MORNING 30 tablet 11 03/15/20 24 Active TRUEplus Lancets 33G misc TEST BLOOD SUGAR TWICE DAILY 100 each 5 03/15/20 24 Active FREESTYLE LITE test stripIndicatio ns:Controlled type 2 diabetes mellitus with stage 3 chronic kidney disease, without long-term current use of insulin ([facility]) TEST BLOOD SUGAR TWICE DAILY IN THE MORNING AND AT BEDTIME 150 strip 5 03/15/20 24 Active spironolactone (Aldactone) 25 MG tablet TAKE 1 TABLET BY MOUTH AT BEDTIME 90 tablet 1 07/05/19 25 Active rosuvastatin (Crestor) 40 MG tablet Take 40 mg by mouth at bedtime. 04/12/20 24 Active thiamine (Vitamin B-1) 100 MG tabletIndicati ons:Alcoholism ([facility]) TAKE 1 TABLET BY MOUTH EVERY MORNING 90 tablet 3 07/28/19 25 Active folic acid (Folvite) 1 MG tabletIndicati ons:Alcoholism ([facility]) TAKE 1 TABLET BY MOUTH EVERY MORNING 90 tablet 3 07/28/19 25 Active lactulose (Chronulac) 10 GM/15ML solution Take 15 mL (10 g) by mouth 3 times daily. Hold if more than 4 BM per day 4050 mL 3 08/28/19 25 026 Active ipratropium-al buterol (Combivent Respimat) 20-100 MCG/ACT inhalerIndicat ions:Chronic obstructive pulmonary disease, unspecified COPD type ([facility]) INHALE 1 PUFF BY MOUTH FOUR TIMES DAILY DURING WAKING HOURS 4 g 08/28/19 25 Active bumetanide (Bumex) 1 MG tablet Take 1 tablet (1 mg) by mouth Once per day. 90 tablet 3 08/28/19 25 Active Diclofenac Sodium 1 % gel Apply 2 grams if needed in the morning and at bedtime for pain 100 g 1 08/28/19 25 Active Blood Pressure Monitoring (Blood Pressure Cuff) misc Use daily as prescribed 1 each 08/28/19 25 Active acamprosate (Campral) 333 MG EC tablet Take 2 tablets (666 mg) by mouth 3 times daily. 180 tablet 3 08/31/19 25 Active Diclofenac Sodium 1 % gel Apply 2 grams if needed in the morning and at bedtime for pain 100 g 1 03/04/20 23 025 Discontinued(Re order (will not trigger notification to Pharmacy)) furosemide (Lasix) 20 MG tabletIndicati ons:Chronic systolic congestive heart failure (CMS/HCC) TAKE 1 TABLET BY MOUTH EVERY MORNING 90 tablet 1 04/13/20 24 025 Discontinued(St op taking at discharge) ipratropium-al buterol (Combivent Respimat) 20-100 MCG/ACT inhalerIndicat ions:Chronic obstructive pulmonary disease, unspecified COPD type (CMS/HCC) INHALE 1 PUFF BY MOUTH FOUR TIMES DAILY DURING WAKING HOURS 4 g 06/23/19 25 025 Discontinued(Re order (will not trigger notification to Pharmacy)) lactulose (Chronulac) 10 GM/15ML solution TAKE 30 ML BY MOUTH TWICE DAILY 05/28/20 24 025 Discontinued(Re order (will not trigger notification to Pharmacy)) acamprosate (Campral) 333 MG EC tablet Take 666 mg by mouth 3 times daily. 07/21/19 25 025 Discontinued(Re order (will not trigger notification to Pharmacy)) bumetanide (Bumex) 1 MG tablet Take 1 mg by mouth Once per day. 07/21/19 25 025 Discontinued(Re order (will not trigger notification to Pharmacy)) Active Problems Patient Care Coordination No te Formatting of this note migh t be different from the original. C3/CM Nevaeh Aguirre RN Problem Noted Date Diagnosed Date Elevated BP without diagnosis of hypertension Assessment & Plan (09/01/2024 7:44 PM EDT): Patient currently fluid overload due to not taking diuretics as prescribed from HD[facility] Restart Bumex and continue spironolactone plus losartan for CHF. DC Lasix and check labs now and within 1 to 2 weeks Gait disturbance 03/04/2023 Assessment & Plan (03/04/2023 2:33 PM EDT): Mostly limited by O2 dependence and most likely cirrhosis Will have PT evaluate and recommend ambulatory device Moderate episode of recurrent major depressive d [...] avoid alcohol counseled to fu closely with [facility] counselor declined referral to AUD program was [...] Fu'd by Dr Ridley. Assessment & Plan (08/27/2024 2:27 PM EDT): No recent exacerbation, he is a non smoker now. Use Combivent PRN only. Assessment & Plan (03/08/2024 10:49 AM EDT): Stable, continue combivent prn, O2 use and encouraged to not smoke or use recerational substances. FU with Dr Ridley He agreed to have Influenza IZ today, advised to have Covid booster at his earlier convenience. 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 Patient was admitted at [facility] on 07/2024 with CHF exacerbation/alcohol intoxication. He was diurized with Lasix and Spironolactone. Patient was discharged on Jardiance and to continue home oxygen. Assessment & Plan (03/08/2024 10:52 AM EDT): [...] EDT): F/u with [facility] program. He understands importance of avoiding alcohol use. Check LFTs prior to next visit. 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 Order BMP today and adjust medications. DC Lasix and continue Bumex and Spironolactone, I will adjust the medications according to BMP results. Continue Losartan and FU with Cardiology next month. Discussed the importance of avoiding drug use. Advised regarding a low sodium diet. FU with me in 1 month. Assessment & Plan (01/02/2024 11:41 AM EDT): [...] O2 2L NC. He was advised to burr picker CPAP and start using it ever night [...] Plan (03/04/2023 2:26 PM EDT): FU by [facility] cardiology Recent echo showed EF 66% wm [...] 07/09/2018 Opioid dependence 06/24/2018 Assessment & Plan (08/27/2024 2:25 PM EDT): He is currently taking Methadone and reportedly is not using heroin since hospital discharge last month. Advised to avoid recreational substances and continue methadone program. 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 A1c is at goal. Continue on Jardiance. Counseled re more frequent low calorie/carb meals. Check fgstk once daily Encouraged physical activity as tolerated. FU in 3 months. Assessment & Plan (01/02/2024 11:35 AM EDT): [...] Problem Noted Date Diagnosed Date Resolved Date COPD exacerbation 12/12/2022 08/27/2024 Assessment & Plan (12/12/2022 1:05 PM EDT): Resolved s/p PRD continue combivent inhaler Pt is nonsmoker counseled avoid toxic inhaled substances Will do PFTs next appointment Continue supplemental O2 to keep O2 sat 91-93% will consider referral to pulmonology for further evaluation (used to be seen by Dr. Ridley) Ascites due to alcoholic cirrhosis 05/06/2022 03/08/2024 Aspiration pneumonia due to regurgitated food 05/06/2008/27/2024 Cardiac arrest 05/06/2022 01/02/2024 Encounters Date Type Department Care Team Description 09/21/2024 Telephone [facility] [address] [place] [address] Nelly Bach MD Call Back Request (/) 08/30/2024 Refill [facility] [address] [place] [address] Nelly Bach MD 08/27/2024 11:30 AM EDT Office Visit [facility] [address] [place] [address] Nelly Bach MD Controlled type 2 diabetes mellitus with stage 3 chronic kidney disease, without long-term current use of insulin (CMS/HCC) (Primary Dx); Chronic diastolic heart failure (CMS/HCC); Alcoholic cirrhosis of liver without ascites (CMS/HCC); Uncomplicated opioid dependence (CMS/HCC); Pulmonary emphysema, unspecified emphysema type (CMS/HCC); Chronic obstructive pulmonary disease, unspecified COPD type (CMS/HCC); Elevated BP without diagnosis of hypertension 08/27/2024 Travel 08/20/2024 Patient Outreach [facility] [address] [place] [address] Nelly Bach MD Pre-visit Planning (SDOH will need to be completed in office. ) 08/20/2024 Population Health Risk Score [facility] () Department [address] [place] [phone] Provider, Population Health Generic 08/12/2024 Outside Procedure [facility] [address] [place] [address] Elias Waiten, OD Presbyopia (Primary Dx) 08/11/2024 10:15 AM EST Office Visit [facility] [address] [place] [address] Elias Waiten, OD Regular astigmatism of both eyes (Primary Dx) 08/09/2024 Telephone [facility] [address], [place] [phone] Nelly Bach MD [employer] (Underwear, protective Prevail) 07/28/2024 Refill [facility] [address], [place] [phone] Nelly Bach MD Alcoholism (CMS/HCC) 07/22/2024 Patient Outreach [facility] [address] [place] [address] Nelly Bach MD Transition Of Care (Tcm) (HDF unscheduled) 07/04/2024 Refill [facility] [address] [place] [address] Nelly Bach MD 06/24/2024 10:30 AM EST Office Visit [facility] [address] [place], [place] [phone] Ravindra, Selma, OD Type 2 diabetes mellitus without ophthalmic manifestations (CMS/HCC) (Primary Dx); Age-related nuclear cataract of both eyes; Presbyopia 06/24/2024 Travel from Last 3 Months Immunizations Name Administration [...] Sign Reading Time Taken Comments Blood Pressure 152/84 08/27/2024 11:02 AM EDT pt did not take BP med today Pulse 80 08/27/2024 11:02 AM EDT Temperature 35.9 ??C (96.7 ??F) 08/27/2024 1 1:02 AM EDT Respiratory Rate 20 08/27/2024 11:0 2 AM EDT Oxygen Saturation 85% 08/27/2024 11: 02 AM EDT pt is on 2 liter nasal canula oxygen Inhaled Oxygen Concentration - - Weight 113 kg (248 lb 6.4 oz) 08/27/2024 11:02 AM EDT Height 160 cm (5' 3 ) 08/27/2024 11:02 AM EDT Body Mass Index 44 08/27/2024 11:02 AM EDT Plan of Treatment Upcoming Encounters Date Type Department Care Team (Late st Contact Info) Description 09/28/2024 3:15 PM EDT Office Visit [facility] [address] [place] [address] Nelly Bach MD [address] [place] [address] Health Maintenance Due Date Last Done Comments CT Colonography 1962 Colonoscopy 1962 Colorectal Cancer Screening 1962 FIT DNA/Cologuard 1962 FIT 1962 FOBT 1962 Sigmoidoscopy 1962 Alcohol/Substance Use Screening 1974 Hepatitis A Vaccines (1 of 2 - Risk 2-dose series) 1981 RSV Patients and Patients Aged 60 years or older (1 - Risk 60-74 years 1-dose series) 2022 Diabetes: Foot Exam 12/13/2023 12/12/2022, 12/12/2022, 12/12/2022, Additional history exists Depression Screening 08/28/2024 08/29/2023, 08/29/19 SDOH Screening 08/28/2024 08/29/2023 Diabetes: Hemoglobin A1C 11/27/2024 025, 01/02/2024, 08/29/2023, Additional history exists Lipid Panel 05/28/2025 05/28/2024, 11/08, 10/23/2021, Additional history exists Tobacco Screening 08/27/2025 08/27/2024 Eye Exam 06/24/2026 06/24/2024, 06/09, 06/24/2024, Additional [...] Procedure Name Priority Date/Time Associated Diagnosis Comments BASIC METABOLIC PANEL Routine 08/27/2024 11:55 AM EDT Chronic diastolic heart failure (CMS/HCC) POCT GLYCATED HEMOGLOBIN, TOTAL Routine 08/27/2024 11:11 AM EDT Controlled type 2 diabetes mellitus with stage 3 chronic kidney disease, without long-term current use of insulin (CMS/HCC) POCT GLUCOSE Routine 08/27/2024 11:04 AM EDT Controlled type 2 diabetes mellitus with stage 3 chronic kidney disease, without long-term current use of insulin (CMS/HCC) HEPATITIS C VIRAL RNA, QUANTITATIVE, REAL-TIME PCR Routine 05/28/2024 2:12 PM EST LIPID PANEL, STANDARD Routine 05/28/2024 2:12 PM EST HIV 1/2 ANTIGEN/ANTIBODY, FOURTH GENERATION W/RFL Routine 02/12/2024 11:07 AM EDT Alcoholic cirrhosis, unspecified whether ascites present (CMS/HCC) from Last 3 Months or Most Recently Relevant to Health Maintenance Results * (ABNORMAL) Basic Metabolic Panel (08/27/2024 11:55 AM EDT) Sodium 141 135 - 145 mmol/L [facility] Potassium 4.8 3.3 - 5.1 mmol/L [facility] Chloride 106 96 - 108 mmol/L [facility] Carbon Dioxide 28 22 - 29 mmol/L [facility] Anion Gap 12 - 20 [facility] Urea Nitrogen (BUN) 26(H) 9 - 16 mg/dL [facility] Creatinine, Serum 1.13 0.5 - 1.4 mg/dL [facility] Estimated Glomerular Filt Rate >60 [facility] Comment:Chronic Kidney Disea se: Estimated GFR < 60 mL/min/[id number] Kidney Disease: Estimated GFR < 15 mL/min/1.73m2 Glucose 155(H) 60 - 115 mg/dL [facility] Calcium 9.1 8.4 - 10.2 mg/dL [facility] Blood Venous blood specimen / Unknown 08/27/2024 11:55 AM EDT 08/27/2024 1:22 PM EDT Nelly Bach MD LAB BLOOD ORDERABLES Fin al Result Performing Organization Address City/State/[facility] Co de Phone Number [facility] [address] [place] [phone] * (ABNORMAL) POCT HGB A1C (08/27/2024 11:11 AM EDT) Pathologist [facility] Hemoglobin A1C 7.0(A) 4.0 - 6.0 % Blood 08/27/2024 11:1 1 AM EDT Nelly Bach MD POINT OF CARE TEST ENTER /EDIT ORDERABLES Final Result * POCT Glucose (08/27/2024 11:04 AM EDT) Glucose Blood, POC 177 60 - 200 mg/dL Blood Capillary blood specimen / Unknown 08/27/2024 11:04 AM EDT Nelly Bach MD POINT OF CARE TE ST ENTER/EDIT ORDERABLES Edited Result - Final * Hepatitis C Viral RNA, Quantitative, Real-Time PCR (05/28/2024 2:12 PM EST) Hepatitis C Viral Load <15 NOT DETECTED NOT DETECTED IU/mL [facility] HCV Log PCR <1.18 NOT DETECTED NOT DETECTED Log IU/mL [facility] Comment:For additional infor ramiro, please refer tohttp://education.Kiio/faq/NLD27a1(This link is being provided for informational/educational purposes only.)THIS TEST WAS PERFORMED AT:[email or web address] [place] [phone] HAAS MD 05/28/2024 2:12 PM EST 05/28/2024 2:12 PM EST us Generic External Data Provider LAB BLOOD ORDERAB LES Final Result [facility] [address] [place] [phone] * (ABNORMAL) Lipid Panel, Standard (05/28/2024 2:12 PM EST) Triglycerides 175(H) <150 mg/dL [facility] Comment:Desirable Triglyceri de: less than 150 mg/dLBorderline High Triglyceride 150-199 mg/dLHigh Triglyceride: 200-499 mg/dLVery High Triglyceride: greater than or equal to 5OO mg/dL Cholesterol 262(H) <200 mg/dL [facility] Comment:Desirable Cholestero l: less than 200 mg/dLBorderline High Cholesterol: 200-239 mg/dLHigh Cholesterol: greater than 239 mg/dL LDL Cholesterol Calculated 141(H) <100 mg/dL [facility] Comment:Desirable LDL: less than 100 mg/dLNear Optimal/Above Optimal LDL: 110- 129 mg/dLBorderline High LDL: 130-159 mg/dLHigh LDL: 160-189 mg/dLVery High LDL: greater than or equal to 190 mg/dL HDL Cholesterol 86 >40 mg/dL [facility] Comment:Desirable HDL: great er than 40 mg/dL Note: This HDL assay may give artificially low results in patients with liver disease. 05/28/2024 2:12 PM EST 05/28/2024 2:12 PM EST us Generic External Data Provider LAB BLOOD ORDERAB LES Final Result Performing Organization Address [facility] Co de Phone Number [facility] [address] [place] [phone] * HIV-1/2 Antigen and Antibodies, Fourth Generation, with Reflexes (02/12/2024 11:07 AM EDT) HIV AB/AG Nonreactive Nonreactive [facility] Comment:HIV-1 p24 Ag and/or HIV-1/HIV-2 Ab not detected.A test result that is nonreactive does not exclude thepossibility of exposure to or infection with HIV-1 and/orHIV-2. Nonreactive results in this assay for individualswith prior exposure to HIV-1 and/or HIV-2 may be due toantigen and antibody levels that are below the limit ofdetection of this assay.The [employer] HIV Ag/Ab Combo assay result andsupplemental assay results should be interpreted inconjunction with the patient's clinical presentation,history and other laboratory results. If the results areinconsistent with clinical evidence, additional testing issuggested to confirm the result. Blood Venous blood specimen / Unknown 02/12/2024 11:07 AM EDT 02/12/2024 11:07 AM EDT us Nelly Bach MD LAB BLOOD ORDERABLES Fin al Result Performing Organization Address City/[facility]/ZIP Co de Phone Number [facility] [address] [place] [phone] from Last 3 Months or Most Recently Relevant to Health Maintenance Insurance [facility] C3 Care Teams Bellmaker Relationship Specialty Start Date End Date Nelly Bach MD [address] [place] [phone] PCP - General Family Medicine 06/19/18
--- OUTSIDE RECORDS SUMMARY | 2024-09-22 11:15 | XMS_ITS | Clinical Summary ---
Author Organization [facility] Address [address] [place] [address] Care Team Providers Care Academic Vice President Name Role Phone Yair Crenshaw MD Primary Care Provider [phone] Source Comments PLEASE NOTE, if this patient [...] Chest pain syndrome 07/21/2013 Alcoholism ([facility]) 07/21/2013 Social History Tobacco Use Types [...] Plan of Treatment Not on file Insurance [facility]) Member Subscriber Plan / Payer (Ef fective 2013-Present) Name:Isael Britton Relation to Subscriber:Self Name:Isael Britton Payer ID:[id number] Group ID:Not on file Type:Indemnimaryan Address: [address] [place], [place] [phone] Care Teams Academic Vice President Relationship Specialty Start Date End Date Yair Crenshaw MD [phone] [place] [phone] PCP - General Internal Medicine 07/21/13
--- OUTSIDE RECORDS SUMMARY | 2024-09-22 11:15 | XMS_ITS | Encounter Summary ---
Author Organization [employer] Address [address] [place] [address] Care Team Providers Care Vp Treasurer Name Role Phone Nelly Bach MD Primary Care Provider + Reason for Visit * Reason Onset Date Comments Call Back Request 09/21/2024 Encounter Details Date Type Department Care Team ([facility] st Contact Info) Description 09/21/2024 Telephone [facility] [address] [place], [place] [phone] Nelly Bach MD [address] [place], [place] [phone] Call Back Request (/) Social History Tobacco Use Types Packs/Day Years [...] encounter Miscellaneous Notes * Telephone Encounter - Lynn Weber RN - 09/21/2024 3:23 PM EDT [facility]. Receives O2 rxs from [facility], prescribed by pulmonology. TC placed to [facility] and explained the situation, they report they service [place] for pick ups on Wednesdays and will goto his home tomorrow for retrieval. * Telephone Encounter - Nelly Bach MD - 09/21/2024 2:12 PM EDT TC from RN at [facility] reviewed. Agree with adult protection services evaluation. AP/Please call DME Oxygen provider to check re status of O2 tanks retrieval below. * Telephone Encounter - Lynn Weber RN - 09/21/2024 12:44 PM EDT TC returned to Nidhi, nurse at [facility]. Nidhi reports she received an anonymous complaint of hoarding/ animal hoarding so went in for a home inspection. Nidhi reports there were numerous violations that have been reported to the loader operator of the property. Nidhi reports pt.'s legs were very edematous and there were 13 empty oxygen tanks waiting for pickle pumper . Nidhi reports there is a concern for psittacosis infection from the bird feces, there were over 20 birds including chickens, as well as rabbits, dogs, and cats in the apartment. As well as cigarette smokers that live there with the supplemental O2. Nidhi reports pt. Reports he has a TELECOMMUNICATIONS FIELD ENGINEER that comes in from [facility] but could not verify this. Noted there is a signed evaluation for TELECOMMUNICATIONS FIELD ENGINEER services from August. Nidhi reports she is filling out an adult protective services form but wanted to make PCP aware for upcoming follow-up next week. * Telephone Encounter - Braydon Campbell - 09/21/2024 12:12 PM EDT Tc from Nidhi with the [facility] requesting call mayo regarding some concerns that she has about the pt. Contact Nidhi at [phone] documented in this encounter Plan of Treatment Upcoming Encounters Date Type Department Care Team (Late st Contact Info) Description 09/28/2024 3:15 PM EDT Office Visit [facility] [address] [place] [phone] Nelly Bach MD [address] [place] [phone] documented as of this encounter Visit Diagnoses Not on filedocumented in this encounter Care Teams Vp Treasurer Relationship Specialty Start Date End Date Nelly Bach MD [address] [place] [phone] PCP - General Family Medicine 06/19/18 documented as of this encounter
--- OUTSIDE RECORDS SUMMARY | 2024-09-22 11:16 | XMS_ITS | Clinical Summary ---
Author Organization [facility] Address [address] [address] Care Team Providers Care Campus President Name Role Phone Nelly Bach MD Primary Care Provider + [phone] Allergies Active Allergy Reactions Criticality Noted Date [...] Due Date Last Done Comments Pneumococcal Vaccine: 50+ Ye ars (1 of 2 - PCV) 1981 Colorectal Cancer Screening: Annual FOBT 2011 Colorectal Cancer Screening: Colonoscopy 2011 Colorectal Cancer Screening: Sigmoidoscopy 2011 Diabetes: Hemoglobin A1C 11/01/2021 Diabetes: Ophthalmology Exam 11/01/2021 Diabetes: Pedal Pulse Checked 11/01/2021 Diabetes: Sensory Foot Exam 11/01/2021 Diabetes: Visual Foot Exam 11/01/2021 Influenza Vaccine (Season Ended) 2025 Hepatitis B Vaccine Aged Out No longe r eligible based on patient's age to complete this topic Insurance Medicaid [place] Care Teams Campus President Relationship Specialty Start Date End Date Nelly Bach MD [address] [place] [phone] PCP - General 06/19/20
[2024-09-22 18:50] VITALS: PULSE 79; O2SAT 94
== END 2024-09-22 10:29 | disposition home or self-care (01) ==
PROVIDERS: PCP Internal Medicine; Visit Provider Hospitalist
DX: R06.00 Dyspnea, unspecified (principal); J44.89 Other specified chronic obstructive pulmonary disease
CPT/HCPCS: 94618; 99214

== ENCOUNTER → 2024-09-22 09:54 | Outpatient (BNVA) | payer MEDICAID, SELFPAY | PROVIDERS: PCP Internal Medicine; Visit Provider Hospitalist | DX: J44.89 Other specified chronic obstructive pulmonary disease (principal); R06.00 Dyspnea, unspecified | CPT/HCPCS: 94618; 99212 ==

== ENCOUNTER 2024-10-19 16:30 | Emergency (ER) | payer MEDICAID, SELFPAY ==
--- NOTE | ~2024-10-19 | XR_ITS ---
CLINICAL HISTORY: fluid overload Chest Radiograph Comparison: 07/16/24 Findings: Cardiomegaly. Normal mediastinal contours. No pneumothorax. Interstitial prominence. Small bilateral pleural effusions. Normal upper abdomen. No acute fracture. Impression: Suspect mild pulmonary edema. This document has been electronically signed by: Jennifer De Los Santos MD on 10/19/2024 18:03:26
[2024-10-19 16:39] VITALS: BP 186/102; PULSE 70; O2SAT 96
[2024-10-19 16:44] VITALS: BP 156/74; PULSE 68; RESP 16; TEMP 36.9; O2SAT 96; BMI 43.7
--- OUTSIDE RECORDS SUMMARY | 2024-10-19 17:09 | XMS_ITS | Clinical Summary ---
Author Organization [facility] Address [address] [place] [address] Care Team Providers Care Health And Safety Tech Name Role Phone Yair Crenshaw MD Primary Care Provider [phone] Source Comments PLEASE NOTE, if this patient [...] Cardiomegaly 07/21/2013 Chest pain syndrome 07/21/2013 Alcoholism ([facility]) 07/21/2013 Social History Tobacco Use Types [...] Plan of Treatment Not on file Insurance [facility] ([facility]) Member Subscriber Plan / Payer (Ef fective 2013-Present) Name:Isael Britton Relation to Subscriber:Self Name:Isael Britton Payer ID:[id number] Group ID:Not on file Type:Indemnimaryan Address: [address] [place], [place] [id number] Care Teams Health And Safety Tech Relationship Specialty Start Date End Date Yair Crenshaw MD [id number] [place] [address] PCP - General Internal Medicine 07/21/13
--- OUTSIDE RECORDS SUMMARY | 2024-10-19 17:09 | XMS_ITS | Clinical Summary ---
Author Organization [facility] Facility Address [address] [address] Care Team Providers Care Forensic Engineer Name Role Phone Nelly Bach MD Primary Care Provider [phone] Allergies Active Allergy Reactions Criticality Noted Date [...] Insurance Medicaid [place] Care Teams Forensic Engineer Relationship Specialty Start Date End Date Nelly Bach MD [address] [place] [id number] PCP - General 06/19/20
--- NOTE | 2024-10-19 17:30 | ECG_ITS ---
Test Reason : sob Blood Pressure : */* mmHG Vent. Rate : 61 BPM Atrial Rate : 61 BPM P-R Int : 176 ms QRS Dur : 92 ms QT Int : 426 ms P-R-T Axes : 12 -8 11 degrees QTcB Int : 428 ms Normal sinus rhythm Normal ECG When compared with ECG of 16-Jul-2024 21:25, No significant change was found Referred By: Generic ED Physician Electronically Signed By: DAVID HOWELL MD
--- NOTE | 2024-10-19 17:51 | ED.GENADULT ---
HPI - General Adult General Chief complaint: Extremity Injury, Lower Stated complaint: leg swelling Time Seen by Provider: 10/19/24 17:39 Source: patient Mode of arrival: ambulatory Limitations: no limitations and other History of Present Illness ED Provider: Dr. Cabral HPI narrative: 64-year-old male past medical history CHF chronic shortness alcohol abuse admits to drinking too much like anemia constipation GERD asthma morbid obesitypresents emergency department stating that he has water in his legs. In triage he initially complained of a fall 3 days ago and worsening pain he has no cocaine to 1 leg. he states he does take a water pill and has been compliant with it. He denies any chest pain cough it states he does have chronic shortness of breath. of note he has a very limited historian while he is Ecuadorean-speaking I was able to speak to him and fluent Ecuadorean and he would say stiff like I have too much water or just the word water multiple times. Related Data Home Medications ?Medication ?Instructions ?Recorded ?Confirmed thiamine HCl (vitamin B1) 100 mg 100 mg PO DAILY 06/18/21 07/17/24 tablet blood sugar diagnostic (FreeStyle #10 ea 12/12/21 12/11/22 Lite Strips) blood-glucose meter (FreeStyle #1 ea 12/12/21 12/11/22 Lookout Lite kit) lancets 33 gauge (TRUEplus Lancets) #100 ea 12/12/21 12/11/22 methadone 10 mg/mL oral concentrate 60 mg PO DAILY 02/20/22 07/17/24 paroxetine HCl 20 mg tablet 1 tab PO BEDTIME 04/11/22 07/17/24 spironolactone 25 mg tablet 1 tab PO BEDTIME 04/11/22 07/17/24 Oxygen Home Use 04/22/22 12/11/22 CPAP (CPAP Machine/Device) 04/25/23 empagliflozin 25 mg tablet 25 mg PO DAILY 08/08/23 07/17/24 (Jardiance) folic acid 1 mg tablet 1 mg PO DAILY 08/08/23 07/17/24 ipratropium 20 mcg-albuterol 100 1 puff inhalation QID 08/08/23 07/17/24 mcg/actuation mist for inhalation (Combivent Respimat) prazosin 2 mg capsule 4 mg PO BEDTIME 08/08/23 07/17/24 Previous Rx's ?Medication ?Instructions ?Recorded lactulose 10 gram/15 mL oral 20 g (30 mL) PO BID #473 mL 05/28/24 solution cholecalciferol (vitamin D3) 50 100 mcg (2 x 50 mcg (2,000 unit)) 06/04/24 mcg (2,000 unit) capsule PO DAILY #180 caps acamprosate 333 mg tablet,delayed 666 mg (2 x 333 mg) PO TID #180 07/21/24 release tabs bumetanide 1 mg tablet 1 mg PO DAILY #30 tabs 07/21/24 rosuvastatin 40 mg tablet 40 mg PO BEDTIME #90 tabs 07/28/24 losartan 25 mg tablet 25 mg PO BID #120 tabs 08/16/24 omeprazole 40 mg capsule,delayed 40 mg PO DAILY@0630 #30 caps 09/20/24 release Allergies Allergy/AdvReac Type Severity Reaction Status Date / Time aspirin [ASPIRIN] Allergy Unknown RASH Verified 10/19/24 16:49 ibuprofen Allergy Unknown nausea and Verified 10/19/24 16:49 vomiting Review of Systems Review of Systems: Review of systems: General: Patient denies any fever chills recent illness or falls Musculoskeletal: Denies back pain or body aches or other injuries HEENT: denies headache, runny nose, ear pain Respiratory: shortness of breath, no cough Cardiovascular: no chest pain or palpitations : denies dysuria, frequency Abdomen: no nausea vomiting denies abdominal pain Extremities: One to 2+ chronic appearing swelling to bilateral legs, no pain Skin: no diaphoresis Yes all other systems are reviewed and are negative PMFSH Past Medical History Medical History Chronic idiopathic constipation GERD (gastroesophageal reflux disease) Opioid use disorder Asthma-COPD overlap syndrome Morbid obesity Chronic hypoxic respiratory failure Restrictive lung disease Obesity hypoventilation syndrome DARRIAN treated with BiPAP Chronic respiratory failure Acute respiratory failure with hypoxia History of opiate therapy Morbid obesity due to excess calories CKD (chronic kidney disease) stage 3, GFR 30-59 ml/min Liver cirrhosis DARRIAN (obstructive sleep apnea) Chronic kidney disease Congestive heart failure Diabetes Surgical History No pertinent past surgical history Family History Family History Mother Cancer Diabetes Social History Social History Household Members: Spouse Housing: House Do you presently have visiting nurse or other home services: Yes Alcohol intake: current Alcohol intake frequency: 3 or more drinks per day Alcohol type: hard liquor Comment: restraints Patient Tobacco Use Status: Never used Tobacco Smoked in Last 30 Days: No e-Cigarette/Vaping Use: Never Used Use of substances other than those prescribed or required for medical reasons: No Substance Use Type: Heroin Advance Directives: No Advance Directives Information Provided: No Do you have a plan to hurt others: No Plan service: No Current occupational status: disabled Physical Exam ED Vital Signs: Vital Signs - 24 hr 10/19/24 16:44 Temperature 98.4 F Pulse Rate 68 Respiratory Rate 16 Blood Pressure 156/74 H Pulse Oximetry 96 Oxygen Delivery Method Nasal Cannula BMI result Body Mass Index 43.7 General: Well-appearing well-nourished in no signs of distress HEENT: Normocephalic atraumatic Neck: No signs of JVD, no masses no tenderness or lymphadenopathy Cardiovascular: Regular rate and rhythm Respiratory: Clear to auscultation bilaterally Abdomen: Soft nontender no masses Extremities: Normal pedal pulses 1 to 2+ edema bilaterally no tenderness to palpation redness without induration chronic in appearance Skin: Dry warm no rashes Back: No tenderness full ROM Course Reevaluation(s) Reevaluation #1: patient with mild CHF and mild hyperammonemia I discussed with the patient felt safe going home or whether he feels like he could be admitted think he does not meet admission criteria but it is probably close to what he has at baseline I will give him a dose of his Bumex as well as some his lactulose at this point he is now clinically sober patient is okay with the plan to go home I did offer admission and give him strict return precautions Medications Administered Discontinued Medications Generic Name Dose Route Start Last Admin Trade Name Freq PRN Reason Stop Dose Admin Lactulose 20 gm 10/19/24 18:29 10/19/24 18:47 Lactulose 20 Gm/30 Ml Solution PO 10/19/24 18:30 20 gm ONCE ONE Administration Medical Decision Making Medical Decision Making [facility] Narrative: I will give the patient for x-ray and labs and reassess including BMP and alcohol level LFTs Differential Diagnosis Differential Diagnoses: The differential diagnosis associated with the presentation includes concern for CHF exacerbation respiratory failure weakness worsening edema alcohol abuse dehydration electrolyte abnormality Admission/Observation Consideration of admission/observation: Escalation of care including admission/observation considered Lab Data MDM Lab Attestation statement: I reviewed the patient's lab results. 10/19/24 17:53 10/19/24 17:53 Labs: Lab Results 10/19/24 10/19/24 10/19/24 Range/Units 17:53 17:56 18:12 WBC 6.9 (4.8-10.8) X10*3/uL RBC 3.96 L (4.60-5.80) X10*6/uL Hgb 12.0 L (14.0-18.0) g/dl Hct 38.1 L (42.0-52.0) % MCV 96.2 (80.0-98.0) fL MCH 30.3 (27.0-33.0) pg MCHC 31.5 (31.0-36.0) g/dl RDW 16.3 H (11.0-16.0) % Plt Count 126 L (160-400) X10*3/uL MPV 8.7 L (9.4-12.4) fL Immature Gran % (Auto) 0.4 (0.0-0.4) % Neut % (Auto) 67.9 (45-73) % Lymph % (Auto) 18.1 L (20-40) % [place] % (Auto) 10.4 (2-11) % Eos % (Auto) 2.5 (0-4) % Baso % (Auto) 0.7 (0-2) % Lymph # (Auto) 1.3 (1.2-4.9) X10*3/uL [place] # (Auto) 0.7 (0.1-1.2) X10*3/uL Eos # (Auto) 0.2 (0.0-0.4) X10*3/uL Baso # (Auto) 0.1 (0.0-0.2) X10*3/uL Abs Immat Gran (auto) 0.03 (0.00-0.03) X10*3/uL Absolute Neuts (auto) 4.7 (2.0-8.3) x10*3/uL Absolute Nucleated RBC 0.000 (0.0-0.012) X10*3/uL Nucleated RBC % (auto) 0.0 (0.0-0.2) /100WBC PT 11.2 (10.9-12.4) SEC INR 1.0 (0.9-1.1) VBG pH 7.31 L (7.32-7.43) VBG pCO2 62 mmHg VBG pO2 72 mmHg VBG HCO3 32 H (22-26) mmol/L VBG O2 Saturation 90.0 % VBG Base Excess 4.4 mmol/L Sodium 142 (135-145) mmol/L Potassium 4.6 (3.3-5.1) mmol/L Chloride 104 (96-108) mmol/L Carbon Dioxide 28 (22-29) mmol/L Anion Gap 15 (12-20) BUN 16 (9-16) mg/dL Creatinine 0.99 (0.5-1.4) mg/dL Estim Creat Clear Calc 89.4 Estimated GFR > 60 Random Glucose 144 H (60-115) mg/dL Calcium 8.8 (8.4-10.2) mg/dL Magnesium 1.9 (1.6-2.6) mg/dL Total Bilirubin 0.5 (0.0-1.0) mg/dL AST 53 H (5-37) U/L Alkaline Phosphatase 189 H (39-117) U/L Ammonia 65 H (13-55) umol/L B-Natriuretic Peptide 673 H (<100) pg/mL Total Protein 7.3 (6.5-8.0) g/dL Albumin 3.6 (3.5-5.0) g/dL Ethyl Alcohol mg/dL 10/19/24 Range/Units 18:13 WBC (4.8-10.8) X10*3/uL RBC (4.60-5.80) X10*6/uL Hgb (14.0-18.0) g/dl Hct (42.0-52.0) % MCV (80.0-98.0) fL MCH (27.0-33.0) pg MCHC (31.0-36.0) g/dl RDW (11.0-16.0) % Plt Count (160-400) X10*3/uL MPV (9.4-12.4) fL Immature Gran % (Auto) (0.0-0.4) % Neut % (Auto) (45-73) % Lymph % (Auto) (20-40) % [place] % (Auto) (2-11) % Eos % (Auto) (0-4) % Baso % (Auto) (0-2) % Lymph # (Auto) (1.2-4.9) X10*3/uL [place] # (Auto) (0.1-1.2) X10*3/uL Eos # (Auto) (0.0-0.4) X10*3/uL Baso # (Auto) (0.0-0.2) X10*3/uL Abs Immat Gran (auto) (0.00-0.03) X10*3/uL Absolute Neuts (auto) (2.0-8.3) x10*3/uL Absolute Nucleated RBC (0.0-0.012) X10*3/uL Nucleated RBC % (auto) (0.0-0.2) /100WBC PT (10.9-12.4) SEC INR (0.9-1.1) VBG pH (7.32-7.43) VBG pCO2 mmHg VBG pO2 mmHg VBG HCO3 (22-26) mmol/L VBG O2 Saturation % VBG Base Excess mmol/L Sodium (135-145) mmol/L Potassium (3.3-5.1) mmol/L Chloride (96-108) mmol/L Carbon Dioxide (22-29) mmol/L Anion Gap (12-20) BUN (9-16) mg/dL Creatinine (0.5-1.4) mg/dL Estim Creat Clear Calc Estimated GFR Random Glucose (60-115) mg/dL Calcium (8.4-10.2) mg/dL Magnesium (1.6-2.6) mg/dL Total Bilirubin (0.0-1.0) mg/dL AST (5-37) U/L Alkaline Phosphatase (39-117) U/L Ammonia (13-55) umol/L B-Natriuretic Peptide (<100) pg/mL Total Protein (6.5-8.0) g/dL Albumin (3.5-5.0) g/dL Ethyl Alcohol 137 mg/dL ABG Data ABG Results: venous blood gas Independent Interpretation I performed an independent interpretation of an: EKG and Plain X-Ray External Record Review External record reviewed: Inpatient record and Office record Critical Care Time Critical Care Time Critical Care Time: Yes Total Critical Care Time: 35 Attestation: Patient arrived with liver failure and fluid overload. I did review his previous records offered admission and ultimately was able to send back home Discharge Plan Discharge Clinical Impression: Dizziness, Morbid obesity, Alcohol use disorder, severe, dependence, Asthma-COPD overlap syndrome, CHF exacerbation Liver cirrhosis Qualifiers: Hepatic cirrhosis type: alcoholic cirrhosis Ascites presence: without ascites Qualified Code(s): K70.30 - Alcoholic cirrhosis of liver without ascites Patient Disposition: Home, Self-Care Instructions: Abuse of Alcohol (DC), Fluid Restriction (DC), Heart Failure (DC), Cirrhosis of the Liver (ED) Additional Instructions: You were seen in the ER for fluid overload and complications with drinking YOu had Xr and labs done which did show mild fluid overload alcohol intoxication and elevated ammonia You were offered to be admitted to the hospital and decided you wanted to go home. If you change your mind please return to the ER. YOu need to follow up with your doctor. If you have any other concerns please return to theER. Prescriptions: No Action cholecalciferol (vitamin D3) 50 mcg (2,000 unit) capsule 100 mcg PO DAILY Qty: 180 3RF rosuvastatin 40 mg tablet 40 mg PO BEDTIME Qty: 90 3RF omeprazole 40 mg capsule,delayed release(DR/EC) 40 mg PO DAILY@0630 Qty: 30 1RF spironolactone 25 mg tablet 1 tab PO BEDTIME paroxetine HCl 20 mg tablet 1 tab PO BEDTIME acamprosate 333 mg Tablet,Delayed Release (Dr/Ec) 666 mg PO TID Qty: 180 0RF bumetanide 1 mg Tablet 1 mg PO DAILY Qty: 30 0RF Protocol: Hold for SBP< HOLD for SBP < : 90 prazosin 2 mg capsule 4 mg PO BEDTIME Combivent Respimat 20-100 mcg/actuation mist 1 puff INHALATION QID Rx Instructions: WHILE AWAKE folic acid 1 mg Tablet 1 mg PO DAILY Jardiance 25 mg tablet 25 mg PO DAILY thiamine HCl (vitamin B1) 100 mg tablet 100 mg PO DAILY (DME) Oxygen Home Use Kit See Rx Instructions .Route Rx Instructions: As directed (DME) blood-glucose meter [FreeStyle Lookout Lite] Kit See Rx Instructions Not Applicable BID Qty: 1 Rx Instructions: As directed (DME) FreeStyle Lite Strips Strip See Rx Instructions Not Applicable BID Qty: 10 Rx Instructions: As directed (DME) lancets [TRUEplus Lancets] 33 gauge misc See Rx Instructions Not Applicable BID Qty: 100 Rx Instructions: As directed methadone 10 mg/mL concentrate 60 mg PO DAILY Rx Instructions: Per PT's Daughter - fills at [facility] [place] lactulose 10 gram/15 mL solution 20 g PO BID Qty: 473 2RF (DME) CPAP Machine/Device Device See Rx Instructions .Route Rx Instructions: As directed losartan 25 mg tablet 25 mg PO BID Qty: 120 4RF Print Language: Ecuadorean
[2024-10-19 17:57] LABS: MANUAL DIFF FLAG NO
[2024-10-19 18:00] LABS: VBG Base Excess 4.4 mmol/L; VBG HCO3 32 mmol/L (22-26); VBG pCO2 62 mmHg; VBG pH 7.31 (7.32-7.43); VBG pO2 72 mmHg
[2024-10-19 18:05] LABS: Basophils Absolute Auto 0.1 X10*3/uL (0.0-0.2); Basophils Percent Auto 0.7 % (0-2); Eosinophils Absolute Auto 0.2 X10*3/uL (0.0-0.4); Eosinophils Percent Auto 2.5 % (0-4); Hematocrit 38.1 % (42.0-52.0); Imm Gran Abs Auto 0.03 X10*3/uL (0.00-0.03); Imm Gran Pct Auto 0.4 % (0.0-0.4); Lymphocytes Absolute Auto 1.3 X10*3/uL (1.2-4.9); Lymphocytes Percent Auto 18.1 % (20-40); Mean Corpuscular HGB Conc 31.5 g/dl (31.0-36.0); Mean Corpuscular Hemoglobin 30.3 pg (27.0-33.0); Mean Corpuscular Volume 96.2 fL (80.0-98.0); Mean Platelet Volume 8.7 fL (9.4-12.4); Monocytes Absolute Auto 0.7 X10*3/uL (0.1-1.2); Monocytes Percent Auto 10.4 % (2-11); Neutrophils Absolute Auto 4.7 x10*3/uL (2.0-8.3); Neutrophils Percent Auto 67.9 % (45-73); Platelet Count 126 X10*3/uL (160-400); Red Blood Count 3.96 X10*6/uL (4.60-5.80); Red Cell Distribution Width 16.3 % (11.0-16.0); White Blood Count 6.9 X10*3/uL (4.8-10.8)
[2024-10-19 18:06] LABS: Prothrombin Time 11.2 SEC (10.9-12.4)
[2024-10-19 18:21] LABS: B Type Natriuretic Peptide 673 pg/mL (<100)
[2024-10-19 18:22] LABS: Albumin Level 3.6 g/dL (3.5-5.0); Alkaline Phosphatase 189 U/L (39-117); Anion Gap 15 (12-20); Aspartate Amino Transferase 53 U/L (5-37); Bilirubin Total 0.5 mg/dL (0.0-1.0); Blood Urea Nitrogen 16 mg/dL (9-16); Calcium 8.8 mg/dL (8.4-10.2); Carbon Dioxide 28 mmol/L (22-29); Chloride 104 mmol/L (96-108); Creatinine Clr Calc Pharmacy 89.4; Estimated Glomerular Filt Rate > 60; Glucose Random 144 mg/dL (60-115); Magnesium 1.9 mg/dL (1.6-2.6); Potassium 4.6 mmol/L (3.3-5.1); Sodium 142 mmol/L (135-145); Total Protein 7.3 g/dL (6.5-8.0)
[2024-10-19 18:23] LABS: Venous Blood Gas Refer to POC result
[2024-10-19 18:24] LABS: Ammonia 65 umol/L (13-55)
[2024-10-19 18:29] LABS: Ethanol 137 mg/dL
[2024-10-19] MEDS: Lactulose 20 GM/30 ML SOLUTION PO (18:47)
[2024-10-19] MEDS: Bumetanide 1 MG TABLET PO (18:52)
[2024-10-19 19:09] LABS: Alanine Aminotransferase 37 U/L (0-40)
--- NOTE | 2024-10-19 19:12 | PC.NURSE ---
Attempted to call patient's x 2, pt left voicemail x 2. Will attempted again in 15 minutes.
[2024-10-19 20:41] VITALS: BP 165/83; PULSE 65; RESP 18; TEMP 37.3; O2SAT 98
[2024-10-19 20:56] VITALS: BP 165/83; PULSE 65; RESP 18; TEMP 37.3; O2SAT 98
== END 2024-10-19 20:58 | disposition home or self-care (01) ==
PROVIDERS: Emergency Provider Student in an Organized Health Care Education/Training Program; PCP Internal Medicine
DX: F10.20 Alcohol dependence, uncomplicated (principal); K70.30 Alcoholic cirrhosis of liver without ascites; Y90.6 Blood alcohol level of 120-199 mg/100 ml; R42 Dizziness and giddiness; J44.89 Other specified chronic obstructive pulmonary disease; I50.9 Heart failure, unspecified; R60.0 Localized edema; E72.20 Disorder of urea cycle metabolism, unspecified; R06.02 Shortness of breath; M79.89 Other specified soft tissue disorders; E66.01 Morbid (severe) obesity due to excess calories; Z68.41 Body mass index [BMI] 40.0-44.9, adult; Z79.899 Other long term (current) drug therapy
CPT/HCPCS: 36415; 71045; 80053; 80307; 82140; 82803; 83735; 83880; 85025; 85610; 93005; 99283; 99284

== ENCOUNTER → 2024-10-19 17:30 | Outpatient (BNV) | payer MEDICAID, SELFPAY | PROVIDERS: Emergency Provider Student in an Organized Health Care Education/Training Program; PCP Internal Medicine; Visit Provider Internal Medicine Cardiovascular Disease | DX: R06.02 Shortness of breath (principal) | CPT/HCPCS: 93010 ==

== ENCOUNTER → 2024-10-19 17:42 | Outpatient (BNV) | payer MEDICAID, SELFPAY | PROVIDERS: Emergency Provider Student in an Organized Health Care Education/Training Program; PCP Internal Medicine; Visit Provider Radiology Diagnostic Radiology | DX: E87.70 Fluid overload, unspecified (principal) | CPT/HCPCS: 71045 ==

== ENCOUNTER 2024-11-14 14:24 | Inpatient (IN) | payer MEDICAID, SELFPAY ==
--- NOTE | 2024-11-14 | ECG_ITS ---
Test Reason : SOB Blood Pressure : */* mmHG Vent. Rate : 68 BPM Atrial Rate : 68 BPM P-R Int : 194 ms QRS Dur : 84 ms QT Int : 408 ms P-R-T Axes : -13 -9 8 degrees QTcB Int : 433 ms Normal sinus rhythm Normal ECG When compared with ECG of 19-Oct-2024 17:41, No significant change was found Referred By: Generic ED Physician Electronically Signed By: DAVID HOWELL MD
--- NOTE | ~2024-11-14 | XR_ITS ---
CLINICAL HISTORY: dyspnea, anasarca 1 view chest x-ray Comparison: CR - XR CHEST 1V - 10/19/24 17:49 EDT Findings: Mild interstitial prominence. No effusion. No pneumothorax. Cardiac and mediastinal contours are prominent but stable. No acute fracture. IMPRESSION: Mild persistent interstitial prominence, slightly improved from prior. This document has been electronically signed by: Gianfranco Estrada MD on 11/14/2024 16:43:15
--- NOTE | ~2024-11-14 | US_ITS ---
EXAMINATION: US ABDOMEN LIMITED CLINICAL INFORMATION: Ascites check.. COMPARISON: July 2024 TECHNIQUE: Limited examination. Real-time ultrasound of the upper and lower quadrants of the abdomen using a curvilinear transducer. FINDINGS: No gross free fluid in the included peritoneal cavity. US/US abdomen limited IMPRESSION: No ascites. Negative exam. Electronically signed by: Julius Breen MD 11/17/2024 01:01 PM EDT
--- NOTE | ~2024-11-14 | CT_ITS ---
EXAMINATION: CT HEAD WITHOUT CONTRAST CLINICAL INFORMATION: Confusion COMPARISON: August 08, 2023 TECHNIQUE: Contiguous axial imaging was performed from the skull base to vertex without intravenous administration of contrast. This CT examination was performed using dose optimization techniques as appropriate, variously including the following: *Automated exposure control *Adjustment of mA and/or kV according to patient size (this includes techniques or standardized protocols for targeted exams where dose is matched to indication/reason for exam; i.e. extremities or head) *Use of iterative reconstruction technique DLP: 1003 mGY*cm FINDINGS: There is no acute ischemic change. There is no intracranial hemorrhage. There is no mass-effect or midline shift. There is mild volume loss. Basal cisterns and ventricles are within normal limits for age/cerebral volume. Orbits are symmetrical and unremarkable. Paranasal sinuses are clear. Trace mastoid air cell effusions are stable. There are no bony abnormalities. CT/CT head/brain wo IV con IMPRESSION: No acute intracranial abnormality. Electronically signed by: Josue Dick MD 11/19/2024 02:47 PM EDT
[2024-11-14 14:33] VITALS: BP 129/62; BP 152/78; PULSE 70; PULSE 75; RESP 18; TEMP 36.9; O2SAT 88; O2SAT 96; BMI 41.8
--- OUTSIDE RECORDS SUMMARY | 2024-11-14 14:57 | XMS_ITS | Clinical Summary ---
Author Organization [facility] Address [address] [place] [address] Care Team Providers Care Production Team Member Name Role Phone Yair Crenshaw MD Primary Care Provider [phone] Source Comments PLEASE NOTE, if this patient [...] Cardiomegaly 07/21/2013 Chest pain syndrome 07/21/2013 Alcoholism ([facility]) 07/21/2013 Social History Tobacco Use Types Packs/Day [...] Plan of Treatment Not on file Insurance [facility] ([facility]) Member Subscriber Plan / Payer (Ef fective 2013-Present) Name:Isael Britton Relation to Subscriber:Self Name:Isael Britton Payer ID:[id number] Group ID:Not on file Type:Indemnimaryan Address: [address] [place], [place] [id number] Care Teams Production Team Member Relationship Specialty Start Date End Date Yair Crenshaw MD [address] [place] [address] PCP - General Internal Medicine 07/21/13
[2024-11-14 15:18] LABS: Basophils Absolute Auto 0.1 X10*3/uL (0.0-0.2); Basophils Percent Auto 0.8 % (0-2); Eosinophils Absolute Auto 0.1 X10*3/uL (0.0-0.4); Eosinophils Percent Auto 0.6 % (0-4); Hematocrit 38.1 % (42.0-52.0); Hemoglobin 11.9 g/dl (14.0-18.0); Imm Gran Abs Auto 0.04 X10*3/uL (0.00-0.03); Imm Gran Pct Auto 0.5 % (0.0-0.4); Lymphocytes Percent Auto 12.7 % (20-40); MANUAL DIFF FLAG NO; Mean Corpuscular HGB Conc 31.2 g/dl (31.0-36.0); Mean Corpuscular Hemoglobin 29.7 pg (27.0-33.0); Mean Platelet Volume 9.4 fL (9.4-12.4); Monocytes Absolute Auto 0.7 X10*3/uL (0.1-1.2); Monocytes Percent Auto 8.4 % (2-11); Platelet Count 139 X10*3/uL (160-400); Red Blood Count 4.01 X10*6/uL (4.60-5.80); Red Cell Distribution Width 16.3 % (11.0-16.0); White Blood Count 7.9 X10*3/uL (4.8-10.8)
[2024-11-14 15:43] LABS: B Type Natriuretic Peptide 1030 pg/mL (<100)
[2024-11-14 15:44] LABS: Alanine Aminotransferase 29 U/L (0-40); Albumin Level 3.7 g/dL (3.5-5.0); Anion Gap 17 (12-20); Aspartate Amino Transferase 42 U/L (5-37); Bilirubin Total 0.7 mg/dL (0.0-1.0); Blood Urea Nitrogen 21 mg/dL (9-16); C Reactive Protein 2.72 mg/dL (< or = 0.50); Calcium 8.7 mg/dL (8.4-10.2); Carbon Dioxide 29 mmol/L (22-29); Chloride 100 mmol/L (96-108); Creatinine Clr Calc Pharmacy 78.1; Estimated Glomerular Filt Rate > 60; Glucose Random 197 mg/dL (60-115); Magnesium 2.1 mg/dL (1.6-2.6); Potassium 4.8 mmol/L (3.3-5.1); Sodium 141 mmol/L (135-145); Total Protein 7.5 g/dL (6.5-8.0)
[2024-11-14 15:46] LABS: Troponin-I High Sensitivity 21.8 ng/L (<3.5-35.0)
--- NOTE | 2024-11-14 15:58 | ED_ITS ---
HPI - General Adult General Chief complaint: General Medical Stated complaint: bilateral lower extremity edema Time Seen by Provider: 11/14/24 15:58 History of Present Illness ED Provider: Zhao HEATH narrative: The patient is a 64-year-old male with a history of alcoholic liver cirrhosis, congestive heart failure, hypertension, diabetes, hypertension, and asthma/COPD. He is on home oxygen at 2 L. The patient says that he has had increasing worsening swelling of his arms and legs over the last 3 weeks. He has also had some worsening shortness of breath when he lays down. He has no chest pain or pleuritic pain. He has had no fever, sweats, chills. No cough or sputum. He lives with his daughter. Today his daughter called an ambulance and he was brought to the hospital. Related Data Home Medications ?Medication ?Instructions ?Recorded ?Confirmed thiamine HCl (vitamin B1) 100 mg 100 mg PO DAILY 06/18/21 11/14/24 tablet blood sugar diagnostic (FreeStyle #10 ea 12/12/21 12/11/22 Lite Strips) blood-glucose meter (FreeStyle #1 ea 12/12/21 12/11/22 [place] Lite kit) lancets 33 gauge (TRUEplus Lancets) #100 ea 12/12/21 12/11/22 methadone 10 mg/mL oral concentrate 60 mg PO DAILY 02/20/22 11/15/24 Oxygen Home Use 04/22/22 12/11/22 CPAP (CPAP Machine/Device) 04/25/23 empagliflozin 25 mg tablet 25 mg PO DAILY 08/08/23 11/14/24 (Jardiance) folic acid 1 mg tablet 1 mg PO DAILY 08/08/23 11/14/24 ipratropium 20 mcg-albuterol 100 1 puff inhalation TID 08/08/23 11/14/24 mcg/actuation mist for inhalation (Combivent Respimat) prazosin 2 mg capsule 2 mg PO BEDTIME 08/08/23 11/14/24 diclofenac sodium 1 % topical gel 2 g topical BID PRN pain 11/14/24 11/14/24 lactulose 10 gram/15 mL oral 15 ml PO BID 11/14/24 11/14/24 solution losartan 25 mg tablet 25 mg PO DAILY 11/14/24 11/14/24 nystatin 100,000 unit/gram topical 1 appl topical BID 11/14/24 11/14/24 powder ([facility]) sennosides 8.6 mg tablet (senna) 17.2 mg PO BEDTIME 11/14/24 11/14/24 spironolactone 25 mg tablet 25 mg PO BEDTIME 11/14/24 11/15/24 Previous Rx's ?Medication ?Instructions ?Recorded cholecalciferol (vitamin D3) 50 100 mcg (2 x 50 mcg (2,000 unit)) 06/04/24 mcg (2,000 unit) capsule PO DAILY #180 caps acamprosate 333 mg tablet,delayed 666 mg (2 x 333 mg) PO TID #180 07/21/24 release tabs bumetanide 1 mg tablet 1 mg PO DAILY #30 tabs 07/21/24 rosuvastatin 40 mg tablet 40 mg PO BEDTIME #90 tabs 07/28/24 Allergies Allergy/AdvReac Type Severity Reaction Status Date / Time aspirin [ASPIRIN] Allergy Unknown RASH Verified 11/14/24 14:36 ibuprofen Allergy Unknown nausea and Verified 11/14/24 14:36 vomiting Review of Systems 2 Review of Systems: Yes all other systems are reviewed and are negative [facility] Past Medical History Medical History Chronic idiopathic constipation GERD (gastroesophageal reflux disease) Opioid use disorder Asthma-COPD overlap syndrome Morbid obesity Chronic hypoxic respiratory failure Restrictive lung disease Obesity hypoventilation syndrome DARRIAN treated with BiPAP Chronic respiratory failure Acute respiratory failure with hypoxia History of opiate therapy Morbid obesity due to excess calories CKD (chronic kidney disease) stage 3, GFR 30-59 ml/min Liver cirrhosis DARRIAN (obstructive sleep apnea) Chronic kidney disease Congestive heart failure Diabetes Surgical History No pertinent past surgical history Family History Family History Mother Cancer Diabetes Social History Social History Household Members: Unknown / Unable to assess Housing: House Do you presently have visiting nurse or other home services: Yes Alcohol intake: current Alcohol intake frequency: a few times a week Alcohol type: hard liquor Comment: restraints Patient Tobacco Use Status: Never used Tobacco Smoked in Last 30 Days: No e-Cigarette/Vaping Use: Never Used Use of substances other than those prescribed or required for medical reasons: Yes Substance Use Type: Heroin Currently Displaying Signs/Symptoms of Drug Intoxication Withdrawal: No Advance Directives: No Advance Directives Information Provided: Yes Do you have a plan to hurt others: No Plan service: No Current occupational status: disabled Physical Exam ED Vital Signs: Vital Signs - 24 hr 11/14/24 14:33 11/14/24 16:04 11/14/24 17:35 Temperature 98.4 F 97.5 F Pulse Rate 70 62 Respiratory Rate 18 17 Blood Pressure 129/62 130/65 153/72 H Pulse Oximetry 96 96 Oxygen Delivery Method Nasal Cannula Nasal Cannula Oxygen Flow Rate 3 BMI result Body Mass Index 41.8 Const Other: The patient is a very large 64-year-old male. He is awake and alert. He seems chronically ill. He was maintaining decent oxygen saturations with nasal oxygen. He looks quite chronically ill and he looks somewhat it acutely unwell as well. HENMT Other: Face is symmetrical, mucous membranes moist Eyes Other: pupils are round equal, conjunctivae are clear Neck Other: the patient had a very thick neck and I could not evaluate the presence or absence of JVD. Resp Other: Breath sounds were fairly clear. No increased work of breathing. However if he moves around on the stretcher he looks short of breath. Cardio Rate: regular rate Rhythm: regular rhythm Heart sounds: S1 normal heart sound present and S2 normal heart sound present GI Other: Abdomen is soft and nontender Skin Other: the patient's skin is very edematous both in his arms in his legs. The legs are extremely edematous and somewhat tense. There is dependent rubor in both legs involving both the lower and the upper legs. Neuro Other: The patient is awake and alert. He does not seem frankly encephalopathic. Cranial nerves are intact. He seemed somewhat tremulous with movements. He seems generally deconditioned. No focal findings. He is able to move all 4 extremities symmetrically although he was not able to stand. Extrem Other: The patient has a edema of both the arms and the legs. The leg edema is quite impressive. He is tensely edematous in both the lower and upper legs with dependent rubor. Medications Administered Generic Name Dose Route Start Last Admin Trade Name Freq PRN Reason Stop Dose Admin Albuterol/Ipratropium 3 ml 11/14/24 21:00 11/15/24 07:54 Albuterol/Iprat 2.5/0.5mg 3 Ml Ampul.Neb INHALE 3 ml TID THAI Administration Atorvastatin Calcium 80 mg 11/14/24 21:00 11/14/24 23:12 Atorvastatin Calcium 80 Mg Tablet PO 80 mg BEDTIME THAI Administration Empagliflozin 25 mg 11/15/24 09:00 11/15/24 09:03 Empagliflozin 25 Mg Tablet PO 25 mg DAILY THAI Administration Enoxaparin Sodium 40 mg 11/14/24 19:30 11/14/24 23:12 Enoxaparin Sodium 40 Mg/0.4 Ml Syringe SUBCUT 40 mg Q24H THAI Administration Famotidine 20 mg 11/14/24 21:00 11/15/24 09:02 Famotidine 20 Mg Tablet PO 20 mg BID THAI Administration Folic Acid 1 mg 11/15/24 09:00 11/15/24 09:03 Folic Acid 1 Mg Tablet PO 1 mg DAILY THAI Administration Furosemide 40 mg 11/15/24 09:00 11/15/24 09:02 Furosemide 40 Mg/4 Ml Vial IVPUSH 40 mg BID@0900,1800 THAI Administration Protocol Lactulose 10 gm 11/14/24 21:00 11/15/24 09:03 Lactulose 20 Gm/30 Ml Solution PO 10 gm BID THAI Administration Losartan Potassium 25 mg 11/15/24 09:00 11/15/24 09:02 Losartan Potassium 25 Mg Tablet PO 25 mg DAILY THAI Administration Protocol Multivitamins/Vitamin C 1 tab 11/15/24 09:00 11/15/24 09:03 Multivitamin Tablet PO 11/18/24 08:59 1 tab DAILY THAI Administration Prazosin HCl 2 mg 11/14/24 21:00 11/14/24 23:12 Prazosin Hcl 1 Mg Capsule PO 2 mg BEDTIME THAI Administration Protocol Senna 17.2 mg 11/14/24 21:00 11/14/24 23:12 Sennosides 8.6 Mg Tablet PO 17.2 mg BEDTIME THAI Administration Sodium Chloride 3 ml 11/15/24 00:00 11/15/24 09:04 0.9 % Sodium Chloride Flush 3 Ml Syringe IVFLUSH 3 ml QSHIFT THAI Administration Thiamine HCl 100 mg 11/15/24 09:00 11/15/24 09:03 Thiamine Hcl 100 Mg Tablet PO 100 mg DAILY THAI Administration Vitamin D 100 mcg 11/15/24 09:00 11/15/24 09:03 Cholecalciferol (Vitamin D3) 25 Mcg Tablet PO 100 mcg DAILY THAI Administration Discontinued Medications Generic Name Dose Route Start Last Admin Trade Name Daily PRN Reason Stop Dose Admin Acamprosate 666 mg 11/14/24 21:00 11/14/24 23:11 Acamprosate Calcium 333 Mg Tablet. PO 666 mg TID THAI Administration Bumetanide 2 mg 11/14/24 17:21 11/14/24 17:35 Bumetanide 1 Mg/4 Ml Vial IVPUSH 11/14/24 17:22 2 mg ONCE ONE Administration Protocol Lorazepam 2 mg 11/14/24 19:05 11/14/24 19:23 Lorazepam 1 Mg Tablet PO 11/14/24 19:06 2 mg ONCE ONE Administration Lorazepam 1 mg 11/14/24 21:15 11/15/24 09:17 Lorazepam 1 Mg Tablet PO 11/18/24 21:14 Not Given Q4H THAI Taper Medical Decision Making Medical Decision Making [facility] Narrative: The patient is a 64-year-old male with a history of alcoholic liver disease. He is an alcoholic who still drinks although he denies it. He has a history of heart failure and significant edema. He presents today with a anasarca. He is also intoxicated with an alcohol level of 175. I think fluid overload is his primary Acute problem although his drinking is clearly not helping him and he is probably somewhat noncompliant. He was given 2 mg of IV bumetanide. He will be admitted to the hospitalist service for further care. I believe he is having an acute exacerbation of his chronic congestive heart failure. Lab Data 11/14/24 15:09 11/15/24 07:23 Labs: Lab Results 11/14/24 11/14/24 11/14/24 Range/Units 15:09 16:42 16:48 WBC 7.9 (4.8-10.8) X10*3/uL RBC 4.01 L (4.60-5.80) X10*6/uL Hgb 11.9 L (14.0-18.0) g/dl Hct 38.1 L (42.0-52.0) % MCV 95.0 (80.0-98.0) fL MCH 29.7 (27.0-33.0) pg MCHC 31.2 (31.0-36.0) g/dl RDW 16.3 H (11.0-16.0) % Plt Count 139 L (160-400) X10*3/uL MPV 9.4 (9.4-12.4) fL Immature Gran % (Auto) 0.5 H (0.0-0.4) % Neut % (Auto) 77.0 H (45-73) % Lymph % (Auto) 12.7 L (20-40) % [place] % (Auto) 8.4 (2-11) % Eos % (Auto) 0.6 (0-4) % Baso % (Auto) 0.8 (0-2) % Lymph # (Auto) 1.0 L (1.2-4.9) X10*3/uL [place] # (Auto) 0.7 (0.1-1.2) X10*3/uL Eos # (Auto) 0.1 (0.0-0.4) X10*3/uL Baso # (Auto) 0.1 (0.0-0.2) X10*3/uL Abs Immat Gran (auto) 0.04 H (0.00-0.03) X10*3/uL Absolute Neuts (auto) 6.0 (2.0-8.3) x10*3/uL Absolute Nucleated RBC 0.000 (0.0-0.012) X10*3/uL Nucleated RBC % (auto) 0.0 (0.0-0.2) /100WBC ESR 23 H (0-15) MM/HR PT 11.9 (10.9-12.4) SEC INR 1.0 (0.9-1.1) VBG pH 7.34 (7.32-7.43) VBG pCO2 57 mmHg VBG pO2 85 mmHg VBG HCO3 31 H (22-26) mmol/L VBG O2 Saturation 94.0 % VBG Base Excess 4.5 mmol/L Sodium 141 (135-145) mmol/L Potassium 4.8 (3.3-5.1) mmol/L Chloride 100 (96-108) mmol/L Carbon Dioxide 29 (22-29) mmol/L Anion Gap 17 (12-20) BUN 21 H (9-16) mg/dL Creatinine 1.22 (0.5-1.4) mg/dL Estim Creat Clear Calc 78.1 Estimated GFR > 60 Random Glucose 197 H (60-115) mg/dL Calcium 8.7 (8.4-10.2) mg/dL Magnesium 2.1 (1.6-2.6) mg/dL Total Bilirubin 0.7 (0.0-1.0) mg/dL AST 42 H (5-37) U/L ALT 29 (0-40) U/L Alkaline Phosphatase 167 H (39-117) U/L Ammonia 65 H (13-55) umol/L Troponin I High Sens 21.8 24.9 (<3.5-35.0) ng/L C-Reactive Protein 2.72 H (< or = 0.50) mg/dL B-Natriuretic Peptide 1030 H (<100) pg/mL Total Protein 7.5 (6.5-8.0) g/dL Albumin 3.7 (3.5-5.0) g/dL Ethyl Alcohol 172 mg/dL Influenza Type A (PCR) NEGATIVE (Negative) Influenza Type B (PCR) NEGATIVE (Negative) RSV RNA Qual (PCR) NEGATIVE (Negative) SARS-CoV-2 RNA (RT-PCR) NEGATIVE (Negative) Critical Care Time Critical Care Time Critical Care Time: Yes Total Critical Care Time: 35 Attestation: The patient was critically ill with a high probability of imminent or life- threatening deterioration. I spent greater than 30 minutes of discontinuous time evaluating the patient, delivering critical care at the bedside, discussing evaluating data with consultants. Critical care time does not include time spent performing separately billable procedures or teaching. Time spent performing critical care with 35 minutes. Discharge Plan Discharge Clinical Impression: Anasarca, Congestive heart failure, Alcohol intoxication Patient Disposition: Admitted As Inpatient Interventions: Admission Worksheet (ED) Last Done: 11/14/24 20:21 Discharge Date/Time: 11/14/24 21:30
[2024-11-14 16:00] LABS: Erythrocyte Sedimentation Rate 23 MM/HR (0-15)
[2024-11-14 16:04] VITALS: BP 130/65; PULSE 62; RESP 17; TEMP 36.4; O2SAT 96
[2024-11-14 16:15] LABS: Alkaline Phosphatase 167 U/L (39-117)
[2024-11-14 16:37] LABS: Ethanol 172 mg/dL
--- NOTE | 2024-11-14 16:48 | PC.NURSE ---
18gIV placed in the right AC - labs obtained/sent to lab.
[2024-11-14 16:50] LABS: Venous Blood Gas Refer to POC result
[2024-11-14 16:51] LABS: VBG Base Excess 4.5 mmol/L; VBG HCO3 31 mmol/L (22-26); VBG pCO2 57 mmHg; VBG pH 7.34 (7.32-7.43); VBG pO2 85 mmHg
[2024-11-14 16:56] LABS: Prothrombin Time 11.9 SEC (10.9-12.4)
[2024-11-14 17:06] LABS: Ammonia 65 umol/L (13-55)
[2024-11-14 17:20] LABS: Troponin-I High Sensitivity 24.9 ng/L (<3.5-35.0)
[2024-11-14 17:33] LABS: Influenza A PCR NEGATIVE (Negative); Influenza B PCR NEGATIVE (Negative); Resp Syncy Virus RNA Qual PCR NEGATIVE (Negative); SARS COV2 PCR INHOUSE NEGATIVE (Negative)
[2024-11-14 17:35] VITALS: BP 153/72
[2024-11-14] MEDS: Bumetanide 1 MG/4 ML VIAL 2 MG IVPUSH (17:35)
--- NOTE | 2024-11-14 17:36 | PC.NURSE ---
2:1 assist needed to get OOB. pt verbalizing he wanted to ambulate to restroom but d/t unsteady gait, bedside commode utilized. pt unable to have BM. 800ml of clear, pale yellow, non-foul smelling urine noted to urinal/emptied. pt assisted back into bed. repositioned to comfort. medication administered per provider order. vital signs remain stable/up to date. on 3L via NC. no sob/wob noted at this time. respirations even/unlabored. pending admission. plan of care ongoing. call castillo placed within reach.
--- NOTE | 2024-11-14 17:50 | PC.NURSE ---
message left at [facility] requesting that methadone dose of 65 mg be confirmed. Pt states he received dose this am.
--- NOTE | 2024-11-14 17:52 | PC.NURSE ---
male sheliawick applied d/t pt being a high fall risk/having an unsteady gait.
--- NOTE | 2024-11-14 18:08 | P.HPHOSP_ITS ---
History of Present Illness Date of Service: 11/14/24 Attending physician on admission: Ismael Millard Chief Complaint: Leg and hand swelling Pt is a 64-year-old male with a PMH significant for alcoholic liver cirrhosis, HFpEF, hx of cardiac arrest,?xrt-[id number]-[id number] type 2 diabetes, asthma/COPD overlap syndrome on 2L home O2, polysubstance abuse including alcohol and heroin, who presents to the ED with?increased swelling in lower legs, thighs, and abdomen x3 weeks. Pt also has been experiencing increased SOB, ALONZO orthopnea, and difficulty walking. States he has gained around 40 lb in the past month. Pt most recently admitted to the hospital for CHF exacerbation in July of this year where furosemide was switched to bumetanide at time of discharge. Pt reports he takes his home medications ?sometimes? without further elaboration. Family at bedside seem to indicate pt rarely takes home medications. Presents today due to worsening symptoms and continued lower extremity discomfort and difficulty walking. Pt also has a long hx of substance abuse, including daily alcohol ingestion of 4 beers and 5+ nips daily. Denies hx of alcohol withdrawal. Denies increased anxiety, diaphoresis, headache, nausea, vomiting, or auditory/visual/tactile disturbances. Denies chest pain/pressure, palpitations. In the ED pt's vitals were stable and WNL, satting at 96% on 3L O2. Labs were significant for ethyl alcohol 172, ammonia 65, CRP 2.72, ESR 23, and BNP 1030, otherwise grossly unremarkable and around baseline for pt. No leukocytosis. Stable normocytic anemia of of 11.9/38.1. No significant electrolyte abnormalities. Renal function baseline. AST mildly elevated at 42, alk-phos 167, similar to prior. Tested negative for flu, COVID, RSV. CXR showed mild persistent interstitial prominence, slightly improved from prior. EKG demonstrated normal sinus rhythm without evidence of significant ST elevations or depressions. Pt was treated in the ED with bumetanide 2 mg IV. Pt is admitted to the hospital for treatment and further evaluation of CHF exacerbation likely secondary to medication noncompliance and in the setting of continued daily alcohol use. Review of Systems 2 Review of Systems: Negative except for that which is stated in the HPI. [facility] Medical History Chronic idiopathic constipation GERD (gastroesophageal reflux disease) Opioid use disorder Asthma-COPD overlap syndrome Morbid obesity Chronic hypoxic respiratory failure Restrictive lung disease Obesity hypoventilation syndrome DARRIAN treated with BiPAP Chronic respiratory failure Acute respiratory failure with hypoxia History of opiate therapy Morbid obesity due to excess calories CKD (chronic kidney disease) stage 3, GFR 30-59 ml/min Liver cirrhosis DARRIAN (obstructive sleep apnea) Chronic kidney disease Congestive heart failure Diabetes Family History Mother Cancer Diabetes Surgical History No pertinent past surgical history Social History Household Members: Spouse Housing: House Do you presently have visiting nurse or other home services: Yes Alcohol intake: current Alcohol intake frequency: a few times a week Alcohol type: hard liquor Comment: restraints Patient Tobacco Use Status: Never used Tobacco Smoked in Last 30 Days: No e-Cigarette/Vaping Use: Never Used Use of substances other than those prescribed or required for medical reasons: Yes Substance Use Type: Heroin Advance Directives: No Advance Directives Information Provided: Yes Do you have a plan to hurt others: No Plan service: No Current occupational status: disabled Meds Allergies Allergy/AdvReac Type Severity Reaction Status Date / Time aspirin [ASPIRIN] Allergy Unknown RASH Verified 11/14/24 14:36 ibuprofen Allergy Unknown nausea and Verified 11/14/24 14:36 vomiting Home Medications ?Medication ?Instructions ?Recorded ?Confirmed ?Last Taken ?Type thiamine HCl (vitamin B1) 100 mg 100 mg PO DAILY 06/18/21 11/14/24 07/15/24 History tablet blood sugar diagnostic (FreeStyle #10 ea 12/12/21 12/11/22 07/15/24 History Lite Strips) blood-glucose meter (FreeStyle #1 ea 12/12/21 12/11/22 07/15/24 History [place] Lite kit) lancets 33 gauge (TRUEplus Lancets) #100 ea 12/12/21 12/11/22 07/15/24 History methadone 10 mg/mL oral concentrate 65 mg PO DAILY 02/20/22 07/17/24 11/14/24 History Oxygen Home Use 04/22/22 12/11/22 07/15/24 History CPAP (CPAP Machine/Device) 04/25/23 07/15/24 History empagliflozin 25 mg tablet 25 mg PO DAILY 08/08/23 11/14/24 07/15/24 History (Jardiance) folic acid 1 mg tablet 1 mg PO DAILY 08/08/23 11/14/24 07/15/24 History ipratropium 20 mcg-albuterol 100 1 puff inhalation TID 08/08/23 11/14/24 07/15/24 History mcg/actuation mist for inhalation (Combivent Respimat) prazosin 2 mg capsule 2 mg PO BEDTIME 08/08/23 11/14/24 07/15/24 History diclofenac sodium 1 % topical gel 2 g topical BID PRN pain 11/14/24 11/14/24 Unknown History lactulose 10 gram/15 mL oral 15 ml PO BID 11/14/24 11/14/24 Unknown History solution losartan 25 mg tablet 25 mg PO DAILY 11/14/24 11/14/24 Unknown History nystatin 100,000 unit/gram topical 1 appl topical BID 11/14/24 11/14/24 Unknown History powder ([facility]) sennosides 8.6 mg tablet (senna) 17.2 mg PO BEDTIME 11/14/24 11/14/24 Unknown History spironolactone 25 mg tablet 25 mg PO BEDTIME 11/14/24 Unknown History Physical Exam 2 Vital Signs and Narrative: Vital Signs: Last Vital Signs Temp 97.5 F 11/14/24 16:04 Pulse 62 11/14/24 16:04 Resp 17 11/14/24 16:04 BP 153/72 H 11/14/24 17:35 Pulse Ox 96 11/14/24 16:04 O2 Del Method Nasal Cannula 11/14/24 16:04 O2 Flow Rate 3 11/14/24 16:04 Oxygen Flow Rate 3 11/14/24 14:33 BMI result Body Mass Index 41.8 General: AOx3, no acute distress Resp: CTA bilaterally CVS: S1, S2, RRR, though difficult to auscultate due to body habitus GI: +BS, NT, firm with some distention Skin: Warm, dry Neuro: Cranial nerves II-XII grossly intact bilaterally. Motor grossly intact bilaterally Extremities: 2+ bilateral pitting edema of lower extremities bilaterally Psych: Appropriate affect Results Labs 11/14/24 15:09 11/14/24 15:09 Labs: Laboratory Results - last 24 hr 11/14/24 11/14/24 11/14/24 15:09 16:42 16:48 MCV 95.0 MCH 29.7 MCHC 31.2 RDW 16.3 H Plt Count 139 L MPV 9.4 Immature Gran % (Auto) 0.5 H Neut % (Auto) 77.0 H Lymph % (Auto) 12.7 L [place] % (Auto) 8.4 Eos % (Auto) 0.6 Baso % (Auto) 0.8 Lymph # (Auto) 1.0 L [place] # (Auto) 0.7 Eos # (Auto) 0.1 Baso # (Auto) 0.1 Abs Immat Gran (auto) 0.04 H Absolute Neuts (auto) 6.0 Absolute Nucleated RBC 0.000 Nucleated RBC % (auto) 0.0 ESR 23 H PT 11.9 INR 1.0 VBG pH 7.34 VBG pCO2 57 VBG pO2 85 VBG HCO3 31 H VBG O2 Saturation 94.0 VBG Base Excess 4.5 Anion Gap 17 Estim Creat Clear Calc 78.1 Estimated GFR > 60 Random Glucose 197 H Calcium 8.7 Magnesium 2.1 Total Bilirubin 0.7 AST 42 H ALT 29 Alkaline Phosphatase 167 H Ammonia 65 H Troponin I High Sens 21.8 24.9 C-Reactive Protein 2.72 H B-Natriuretic Peptide 1030 H Total Protein 7.5 Albumin 3.7 Ethyl Alcohol 172 Influenza Type A (PCR) NEGATIVE Influenza Type B (PCR) NEGATIVE RSV RNA Qual (PCR) NEGATIVE SARS-CoV-2 RNA (RT-PCR) NEGATIVE Assessment and Plan (1) CHF exacerbation: Status: Acute (2) Alcohol use disorder, severe, dependence: Status: Acute Plan Pt is a 64-year-old male with a PMH significant for alcoholic liver cirrhosis, HFpEF, hx of cardiac arrest,?[id number]-[id number] type 2 diabetes, asthma/COPD overlap syndrome on 2L home O2, polysubstance abuse including alcohol and heroin, who presents to the ED with?increased swelling in lower legs, thighs, and abdomen x3 weeks. Acute HFpEF exacerbation Pt with SOB, ALONZO, anasarca, LLE, reported 40lb weight gain, elevated BNP Likely secondary to medication noncompliance Will treat with Bumex 1 mg IV daily for now Folic acid, thiamine, Daily multivitamin, famotidine Monitor I/O, BMP, daily weights Monitor on telemetry Alcohol use disorder Drinks 4 beers and 5+ nips daily Ethyl alcohol level 172 at time of presentation Monitor on CIWA Will treat with Ativan protocol for now Continue acamprosate Addiction medicine consult Asthma/COPD overlap syndrome Not in acute exacerbation Pt chronically on 2 L home O2 Continue home inhalers HLD Statin Alcoholic cirrhosis Ammonia mildly elevated at 65, similar to previous Continue lactulose Polysubstance use disorder Continue methadone once verified Quality Stroke Does the patient have a stroke diagnosis?: No VTE Prior VTE?: No VTE Risk Level:: Medical - moderate - high VTE Device Contraindication: Treatment Not Indicated VTE Drug Contraindication: N/A - Med Ordered
[2024-11-14 18:28] VITALS: BP 124/72; PULSE 64; RESP 14; TEMP 36.4; O2SAT 95
--- NOTE | 2024-11-14 18:48 | PHA.MEDREC ---
Addendum entered by Jenny Enriquez RPh 11/15/24 08:44: Med rec was reviewed by [facility]. Addendum entered by Jenny Enriquez [facility] 11/15/24 08:38: Called and spoke to pharmacist Moni at [facility]. Per Moni, the order for spironolactone is still active and there's no note from prescriber's side about discontinuing the med so it is left in med list. Original Note: Pharmacy Consult ? Medication Reconciliation Pharmacy has completed the medication reconciliation. Spoke with patients to confirm medications. She confirmed losartan he takes once daily and prazosin 2 mg every night. Patient reports he he uses combivent TID and lactulose BID. Patient says he takes 65 mg of methadone daily, last taken this morning and he gets it from [facility]. and patient were unsure if he is still taking spironolactone. Will have am med rec [facility] follow up with [facility] and update med list. Patient reports he took his medications this morning.
[2024-11-14] MEDS: LORazepam 1 MG TABLET 2 MG PO (19:23)
--- NOTE | 2024-11-14 19:32 | PC.NURSE ---
assisted onto bedpan. continent of moderate amount of soft, formed stool.
[2024-11-14 20:27] VITALS: BP 142/76; PULSE 61; RESP 20; O2SAT 93
[2024-11-14 21:41] VITALS: BMI 40.5
[2024-11-14 22:00] VITALS: BP 170/81; PULSE 74; RESP 16; TEMP 36.8; O2SAT 94
[2024-11-14] MEDS: Acamprosate Calcium 333 MG TABLET.DR 666 MG PO (23:11)
[2024-11-14] MEDS: Lactulose 20 GM/30 ML SOLUTION 10 GM PO (23:12)
[2024-11-14] MEDS: Atorvastatin Calcium 80 MG TABLET PO (23:12)
[2024-11-14] MEDS: Famotidine 20 MG TABLET PO (23:12)
[2024-11-14] MEDS: Sennosides 8.6 MG TABLET 17.2 MG PO (23:12)
[2024-11-14] MEDS: Prazosin HCL 1 MG CAPSULE 2 MG PO (23:12)
[2024-11-14] MEDS: Enoxaparin Sodium 40 MG/0.4 ML SYRINGE SUBCUT (23:12)
[2024-11-14] MEDS: LORazepam 1 MG TABLET PO (23:14)
[2024-11-14] MEDS: 0.9 % Sodium Chloride Flush 3 ML SYRINGE IVFLUSH (23:14)
[2024-11-15] VITALS (10 sets, daily range): BP systolic 124–175; BP diastolic 60–84; PULSE 61–85; RESP 16–21; TEMP 36.5–37.2; O2SAT 86–97; BMI 40.3
[2024-11-15] MEDS: LORazepam 1 MG TABLET PO (06:25)
[2024-11-15] MEDS: Albuterol/Iprat 2.5/0.5MG 3 ML AMPUL.NEB INHALE ×3 (07:54→20:34)
[2024-11-15 08:08] LABS: Anion Gap 13 (12-20); Blood Urea Nitrogen 22 mg/dL (9-16); Calcium 8.9 mg/dL (8.4-10.2); Carbon Dioxide 31 mmol/L (22-29); Chloride 99 mmol/L (96-108); Creatinine Clr Calc Pharmacy 85.8; Estimated Glomerular Filt Rate > 60; Glucose Random 102 mg/dL (60-115); Potassium 4.8 mmol/L (3.3-5.1); Sodium 138 mmol/L (135-145)
[2024-11-15] MEDS: Famotidine 20 MG TABLET PO ×2 (09:02→20:56)
[2024-11-15] MEDS: Furosemide 40 MG/4 ML VIAL IVPUSH ×2 (09:02→17:02)
[2024-11-15] MEDS: Losartan Potassium 25 MG TABLET PO (09:02)
[2024-11-15] MEDS: Empagliflozin 25 MG TABLET PO (09:03)
[2024-11-15] MEDS: Multivitamin TABLET 1 TAB PO (09:03)
[2024-11-15] MEDS: Thiamine HCL 100 MG TABLET PO (09:03)
[2024-11-15] MEDS: Folic Acid 1 MG TABLET PO (09:03)
[2024-11-15] MEDS: Lactulose 20 GM/30 ML SOLUTION 10 GM PO ×2 (09:03→20:56)
[2024-11-15] MEDS: Cholecalciferol (Vitamin D3) 25 MCG TABLET 100 MCG PO (09:03)
[2024-11-15] MEDS: 0.9 % Sodium Chloride Flush 3 ML SYRINGE IVFLUSH ×3 (09:04→21:05)
--- NOTE | 2024-11-15 09:24 | HE.PHANOTE ---
RE METHADONE Pharmacy has received patients methadone form, patient is confirmed to be getting 60 mg of methadone from [facility] [phone], last dose was 11/11 with clinic but was given 19 take home bottles. Patient took last take home bottle yesterday 11/14 per RN
--- NOTE | 2024-11-15 09:33 | P.PNIM_ITS ---
Subjective Subjective Date of Service: 11/15/24 Interval History: Feeling better, is greater than 3.5 L negative, denies orthopnea, no PND No acute events overnight. Review of Systems All other system reviewed and are negative Physical Exam 2 Vital Signs: Vital Signs: Last Vital Signs Temp 97.9 F 11/15/24 07:50 Pulse 79 11/15/24 07:54 Resp 18 11/15/24 07:54 BP 165/83 H 11/15/24 07:50 Pulse Ox 93 11/15/24 07:50 O2 Del Method Nasal Cannula 11/15/24 03:58 O2 Flow Rate 3 11/15/24 03:58 Oxygen Flow Rate 3 11/14/24 14:33 BMI result Body Mass Index 40.3 Appearing in no acute distress lung sounds are clear to auscultation heart regular rate rhythm, clear S1, S2 positive bowel sounds, abdomen is soft, nontender neuro patient is alert x3, no focal deficits Objective Data Active Medications Acetaminophen (Acetaminophen 325 Mg Tablet) 650 mg PO Q6H PRN PRN Reason: Pain, Mild 1-3,fever,headache Albuterol/Ipratropium (Albuterol/Iprat 2.5/0.5mg 3 Ml Ampul.Neb) 3 ml INHALE TID [facility] Last Admin: 11/15/24 07:54 Dose: 3 ml Documented By: KATELIN Atorvastatin Calcium (Atorvastatin Calcium 80 Mg Tablet) 80 mg PO BEDTIME [facility] Last Admin: 11/14/24 23:12 Dose: 80 mg Documented By: MAXIMUS Calcium Carbonate (Calcium Carbonate 750 Mg Tab.Chew) 750 mg PO Q4H PRN PRN Reason: Heartburn Empagliflozin (Empagliflozin 25 Mg Tablet) 25 mg PO DAILY [facility] Last Admin: 11/15/24 09:03 Dose: 25 mg Documented By: GINA Enoxaparin Sodium (Enoxaparin Sodium 40 Mg/0.4 Ml Syringe) 40 mg SUBCUT Q24H [facility] Last Admin: 11/14/24 23:12 Dose: 40 mg Documented By: MAXIMUS Famotidine (Famotidine 20 Mg Tablet) 20 mg PO BID [facility] Last Admin: 11/15/24 09:02 Dose: 20 mg Documented By: GINA Folic Acid (Folic Acid 1 Mg Tablet) 1 mg PO DAILY [facility] Last Admin: 11/15/24 09:03 Dose: 1 mg Documented By: GINA Furosemide (Furosemide 40 Mg/4 Ml Vial) 40 mg IVPUSH BID@0900,1800 [facility]; Protocol Last Admin: 11/15/24 09:02 Dose: 40 mg Documented By: GINA Lactulose (Lactulose 20 Gm/30 Ml Solution) 10 gm PO BID [facility] Last Admin: 11/15/24 09:03 Dose: 10 gm Documented By: GINA Lorazepam (Lorazepam 1 Mg Tablet) 1 mg PO Q4H PRN PRN Reason: Breakthrough alcohol withdrawa Stop: 11/18/24 19:04 Lorazepam (Lorazepam 1 Mg Tablet) 1 mg PO Q4H [facility]; Taper Stop: 11/18/24 21:14 Last Admin: 11/15/24 09:17 Dose: Not Given Documented By: GINA Non-Admin Reason: pt lethargic, Cherise G[employer] WORKER aware and okayed Losartan Potassium (Losartan Potassium 25 Mg Tablet) 25 mg PO DAILY [facility]; Protocol Last Admin: 11/15/24 09:02 Dose: 25 mg Documented By: GINA Magnesium Hydroxide (Milk Of Magnesia 30 Ml Oral.Susp) 30 ml PO DAILY PRN PRN Reason: Constipation Melatonin (Melatonin 3 Mg Tablet) 6 mg PO BEDTIME PRN PRN Reason: Insomnia Multivitamins/Vitamin C (Multivitamin Tablet) 1 tab PO DAILY [facility] Stop: 11/18/24 08:59 Last Admin: 11/15/24 09:03 Dose: 1 tab Documented By: GINA Prazosin HCl (Prazosin Hcl 1 Mg Capsule) 2 mg PO BEDTIME [facility]; Protocol Last Admin: 11/14/24 23:12 Dose: 2 mg Documented By: MAXIMUS Senna (Sennosides 8.6 Mg Tablet) 17.2 mg PO BEDTIME [facility] Last Admin: 11/14/24 23:12 Dose: 17.2 mg Documented By: MAXIMUS Sodium Chloride (0.9 % Sodium Chloride Flush 3 Ml Syringe) [facility] Last Admin: 11/15/24 09:04 Dose: 3 ml Documented By: GINA Thiamine HCl (Thiamine Hcl 100 Mg Tablet) 100 mg PO DAILY [facility] Last Admin: 11/15/24 09:03 Dose: 100 mg Documented By: GINA Vitamin D (Cholecalciferol (Vitamin D3) 25 Mcg Tablet) 100 mcg PO DAILY [facility] Last Admin: 11/15/24 09:03 Dose: 100 mcg Documented By: GINA Labs 11/14/24 15:09 11/15/24 07:23 Labs: Laboratory Results - last 24 hr 11/14/24 11/14/24 11/14/24 15:09 16:42 16:48 MCV 95.0 MCH 29.7 MCHC 31.2 RDW 16.3 H Plt Count 139 L MPV 9.4 Immature Gran % (Auto) 0.5 H Neut % (Auto) 77.0 H Lymph % (Auto) 12.7 L [place] % (Auto) 8.4 Eos % (Auto) 0.6 Baso % (Auto) 0.8 Lymph # (Auto) 1.0 L [place] # (Auto) 0.7 Eos # (Auto) 0.1 Baso # (Auto) 0.1 Abs Immat Gran (auto) 0.04 H Absolute Neuts (auto) 6.0 Absolute Nucleated RBC 0.000 Nucleated RBC % (auto) 0.0 ESR 23 H PT 11.9 INR 1.0 VBG pH 7.34 VBG pCO2 57 VBG pO2 85 VBG HCO3 31 H VBG O2 Saturation 94.0 VBG Base Excess 4.5 Anion Gap 17 Estim Creat Clear Calc 78.1 Estimated GFR > 60 Random Glucose 197 H Calcium 8.7 Magnesium 2.1 Total Bilirubin 0.7 AST 42 H ALT 29 Alkaline Phosphatase 167 H Ammonia 65 H Troponin I High Sens 21.8 24.9 C-Reactive Protein 2.72 H B-Natriuretic Peptide 1030 H Total Protein 7.5 Albumin 3.7 Ethyl Alcohol 172 Influenza Type A (PCR) NEGATIVE Influenza Type B (PCR) NEGATIVE RSV RNA Qual (PCR) NEGATIVE SARS-CoV-2 RNA (RT-PCR) NEGATIVE 11/15/24 07:23 MCV MCH MCHC RDW Plt Count MPV Immature Gran % (Auto) Neut % (Auto) Lymph % (Auto) [place] % (Auto) Eos % (Auto) Baso % (Auto) Lymph # (Auto) [place] # (Auto) Eos # (Auto) Baso # (Auto) Abs Immat Gran (auto) Absolute Neuts (auto) Absolute Nucleated RBC Nucleated RBC % (auto) ESR PT INR VBG pH VBG pCO2 VBG pO2 VBG HCO3 VBG O2 Saturation VBG Base Excess Anion Gap 13 Estim Creat Clear Calc 85.8 Estimated GFR > 60 Random Glucose 102 Calcium 8.9 Magnesium Total Bilirubin AST ALT Alkaline Phosphatase Ammonia Troponin I High Sens C-Reactive Protein B-Natriuretic Peptide Total Protein Albumin Ethyl Alcohol Influenza Type A (PCR) Influenza Type B (PCR) RSV RNA Qual (PCR) SARS-CoV-2 RNA (RT-PCR) Assessment and Plan (1) CHF exacerbation: Status: Acute Plan 64-year-old male with a PMH significant for alcoholic liver cirrhosis, HFpEF, hx of cardiac arrest,?spl-[id number]-[id number] type 2 diabetes, asthma/COPD overlap syndrome on 2L home O2, polysubstance abuse including alcohol and heroin, who presents to the ED with?increased swelling in lower legs, thighs, and abdomen x3 weeks. Acute HFpEF exacerbation Pt with SOB, ALONZO, anasarca, LLE, reported 40lb weight gain, elevated BNP Likely secondary to medication noncompliance Will treat with Bumex 1 mg IV daily for now Folic acid, thiamine, Daily multivitamin, famotidine Monitor I/O, BMP, daily weights Monitor on telemetry -9.6 L Alcohol use disorder Drinks 4 beers and 5+ nips daily Ethyl alcohol level 172 at time of presentation Monitor on CIWA Will treat with pheobarbitol if pt shows signs of withdrawal Addiction medicine consult Asthma/COPD overlap syndrome Not in acute exacerbation Pt chronically on 2 L home O2 Continue home inhalers HLD Statin Alcoholic cirrhosis Ammonia mildly elevated at 65, similar to previous Continue lactulose Polysubstance use disorder Continue methadone once verified DARRIAN cpap as needed and bedtime DVT prophylaxis with Lovenox Full code Quality Stroke Does the patient have a stroke diagnosis?: No VTE Prior VTE?: No VTE Risk Level:: Medical - moderate - high VTE Device Contraindication: Treatment Not Indicated VTE Drug Contraindication: N/A - Med Ordered
--- NOTE | 2024-11-15 09:45 | MHC.RECOVRN ---
Methadone verification: I placed a call to [facility] to verify pt's methadone dosing. Spoke wtarline Abraham LPN who reports that pt received last dose in clinic on 11/11/24 at 6:54AM at 60mg and received #14 take home doses at 60mg each. Pt was to return to clinic on 11/25 for further dosing. Jarad informed me that when pt's returns to clinic he should bring all unused doses due to hospitalization. T/W will communicate this to pt. Med req sheet forwarded to pharmacy.
--- NOTE | 2024-11-15 13:14 | MHC.RECOVRN ---
T/W attempted to meet with pt. in following referral received for AUD. Assistance received from park interpreter Ernesto Amezcua. Pt stated he was feeling better. Pt has not yet received his daily methadone dose. He denied any W/D from not receiving methadone yet but presented as very withdrawn. When asked if he was sleepy he said it was because I have not yet received my methadone . T/W spoke with nurse Buchanan and she messaged provider requesting methadone. T/W will return to complete full eval with pt. once he is feeling better and has received his methadone. Report given to Shania Mulligan NP T/W available as needed.
[2024-11-15] MEDS: methADONE HCl 20 MG/2 ML ORAL.CONC 60 MG PO (15:06)
--- NOTE | 2024-11-15 16:05 | MHC.CM.PN ---
CM MET WITH PT WITH A BILLING MANAGER PT REPORTS HE LIVES WITH HIS AND BROTHER IN LAW HE HAS A DIRECTOR EXPORT FOR 1-2 HOURS DAILY HE USES A CPAP, O2 (DOES NOT KNOW COMPANY), AND A WALKER COPY OF HCP REQUESTED PCP: MAT JURADO DCP: HOME RESUME DIRECTOR EXPORT PT STATES HE MAY NEED AN AMBULANCE DEPENDING ON HOW HE IS FEELING, IF WELL ENOUGH, WILL TRANSPORT
[2024-11-15] MEDS: Enoxaparin Sodium 40 MG/0.4 ML SYRINGE SUBCUT (18:37)
[2024-11-15] MEDS: Prazosin HCL 1 MG CAPSULE 2 MG PO (20:55)
[2024-11-15] MEDS: Sennosides 8.6 MG TABLET 17.2 MG PO (20:56)
[2024-11-15] MEDS: Atorvastatin Calcium 80 MG TABLET PO (20:56)
[2024-11-16] VITALS (13 sets, daily range): BP systolic 138–174; BP diastolic 67–94; PULSE 65–80; RESP 16–22; TEMP 36.2–36.6; O2SAT 84–98; BMI 40.3
[2024-11-16] MEDS: Albuterol/Iprat 2.5/0.5MG 3 ML AMPUL.NEB INHALE ×3 (07:30→20:18)
[2024-11-16 07:37] LABS: Anion Gap 14 (12-20); Blood Urea Nitrogen 23 mg/dL (9-16); Calcium 9.2 mg/dL (8.4-10.2); Carbon Dioxide 33 mmol/L (22-29); Chloride 95 mmol/L (96-108); Creatinine Clr Calc Pharmacy 87.3; Estimated Glomerular Filt Rate > 60; Glucose Random 96 mg/dL (60-115); Potassium 4.4 mmol/L (3.3-5.1); Sodium 138 mmol/L (135-145)
[2024-11-16] MEDS: Losartan Potassium 25 MG TABLET PO (10:22)
[2024-11-16] MEDS: Multivitamin TABLET 1 TAB PO (10:22)
[2024-11-16] MEDS: Empagliflozin 25 MG TABLET PO (10:23)
[2024-11-16] MEDS: Famotidine 20 MG TABLET PO ×2 (10:23→20:25)
[2024-11-16] MEDS: Furosemide 40 MG/4 ML VIAL IVPUSH ×2 (10:23→16:39)
[2024-11-16] MEDS: Cholecalciferol (Vitamin D3) 25 MCG TABLET 100 MCG PO (10:23)
[2024-11-16] MEDS: Folic Acid 1 MG TABLET PO (10:23)
[2024-11-16] MEDS: methADONE HCl 20 MG/2 ML ORAL.CONC 60 MG PO (10:23)
[2024-11-16] MEDS: Lactulose 20 GM/30 ML SOLUTION 10 GM PO ×2 (10:24→20:25)
[2024-11-16] MEDS: Thiamine HCL 100 MG TABLET PO (10:24)
[2024-11-16] MEDS: 0.9 % Sodium Chloride Flush 3 ML SYRINGE IVFLUSH ×3 (10:24→20:26)
--- NOTE | 2024-11-16 10:56 | P.EN_ITS ---
Event Note Date of Service: 11/16/24 Event Note: Addiction consult placed for patient realted AUD Patient seen by rn international Already engaged in treatment for both OUD and AUD methadone and acamprosate continued Please see RN evaluation dated 11/15/24 for additional details No follow up indicated at this time Time Spent With Patient Time: Total time managing care of this patient today ____ minutes.
--- NOTE | 2024-11-16 11:24 | HO.PM.IMPN ---
Subjective Subjective Date of Service: 11/16/24 Interval History: Feeling better, is greater than 3.5 L negative, denies orthopnea, no PND No acute events overnight. still shaky Review of Systems All other system reviewed and are negative Physical Exam Vital Signs: Vital Signs: Last Vital Signs Temp 97.2 F 11/16/24 11:08 Pulse 65 11/16/24 11:08 Resp 18 11/16/24 11:08 BP 138/67 11/16/24 11:08 Pulse Ox 97 11/16/24 11:08 O2 Del Method Nasal Cannula 11/16/24 11:08 O2 Flow Rate 2 11/16/24 11:08 Oxygen Flow Rate 3 11/14/24 14:33 BMI result Body Mass Index 40.3 Appearing in no acute distress lung sounds are clear to auscultation heart regular rate rhythm, clear S1, S2 positive bowel sounds, abdomen is soft, nontender neuro patient is alert x3, no focal deficits, tremors Objective Data Active Medications Acetaminophen (Acetaminophen 325 Mg Tablet) 650 mg PO Q6H PRN PRN Reason: Pain, Mild 1-3,fever,headache Albuterol/Ipratropium (Albuterol/Iprat 2.5/0.5mg 3 Ml Ampul.Neb) 3 ml INHALE TID [facility] Last Admin: 11/16/24 07:30 Dose: 3 ml Documented By: JEAN Atorvastatin Calcium (Atorvastatin Calcium 80 Mg Tablet) 80 mg PO BEDTIME [facility] Last Admin: 11/15/24 20:56 Dose: 80 mg Documented By: AKSHAT-JOZEB Calcium Carbonate (Calcium Carbonate 750 Mg Tab.Chew) 750 mg PO Q4H PRN PRN Reason: Heartburn Empagliflozin (Empagliflozin 25 Mg Tablet) 25 mg PO DAILY [facility] Last Admin: 11/16/24 10:23 Dose: 25 mg Documented By: GINA Enoxaparin Sodium (Enoxaparin Sodium 40 Mg/0.4 Ml Syringe) 40 mg SUBCUT Q24H [facility] Last Admin: 11/15/24 18:37 Dose: 40 mg Documented By: GINA Famotidine (Famotidine 20 Mg Tablet) 20 mg PO BID [facility] Last Admin: 11/16/24 10:23 Dose: 20 mg Documented By: GINA Folic Acid (Folic Acid 1 Mg Tablet) 1 mg PO DAILY [facility] Last Admin: 11/16/24 10:23 Dose: 1 mg Documented By: GINA Furosemide (Furosemide 40 Mg/4 Ml Vial) 40 mg IVPUSH BID@0900,1800 [facility]; Protocol Last Admin: 11/16/24 10:23 Dose: 40 mg Documented By: GINA Lactulose (Lactulose 20 Gm/30 Ml Solution) 10 gm PO BID [facility] Last Admin: 11/16/24 10:24 Dose: 10 gm Documented By: GINA Lorazepam (Lorazepam 1 Mg Tablet) 1 mg PO Q4H PRN PRN Reason: Breakthrough alcohol withdrawa Stop: 11/18/24 19:04 Losartan Potassium (Losartan Potassium 25 Mg Tablet) 25 mg PO DAILY [facility]; Protocol Last Admin: 11/16/24 10:22 Dose: 25 mg Documented By: GINA Magnesium Hydroxide (Milk Of Magnesia 30 Ml Oral.Susp) 30 ml PO DAILY PRN PRN Reason: Constipation Melatonin (Melatonin 3 Mg Tablet) 6 mg PO BEDTIME PRN PRN Reason: Insomnia Methadone HCl (Methadone Hcl 20 Mg/2 Ml Oral.Conc) 60 mg PO DAILY@0800 [facility] Last Admin: 11/16/24 10:23 Dose: 60 mg Documented By: GNIA Co-signed By: TESHA Multivitamins/Vitamin C (Multivitamin Tablet) 1 tab PO DAILY [facility] Stop: 11/18/24 08:59 Last Admin: 11/16/24 10:22 Dose: 1 tab Documented By: GINA Pharmacy Consult (Consult Rx Etoh Phenob Po Only) 1 each MISCELLANE ONCE PRN; Protocol PRN Reason: Consult order Prazosin HCl (Prazosin Hcl 1 Mg Capsule) 2 mg PO BEDTIME [facility]; Protocol Last Admin: 11/15/24 20:55 Dose: 2 mg Documented By: MAXIMUS Senna (Sennosides 8.6 Mg Tablet) 17.2 mg PO BEDTIME [facility] Last Admin: 11/15/24 20:56 Dose: 17.2 mg Documented By: MAXIMUS Sodium Chloride (0.9 % Sodium Chloride Flush 3 Ml Syringe) 3 ml IVFLUSH QSHIFT [facility] Last Admin: 11/16/24 10:24 Dose: 3 ml Documented By: GINA Thiamine HCl (Thiamine Hcl 100 Mg Tablet) 100 mg PO DAILY [facility] Last Admin: 11/16/24 10:24 Dose: 100 mg Documented By: GINA Vitamin D (Cholecalciferol (Vitamin D3) 25 Mcg Tablet) 100 mcg PO DAILY [facility] Last Admin: 11/16/24 10:23 Dose: 100 mcg Documented By: GINA Labs 11/14/24 15:09 11/16/24 06:31 Labs: Laboratory Results - last 24 hr 11/16/24 06:31 Anion Gap 14 Estim Creat Clear Calc 87.3 Estimated GFR > 60 Random Glucose 96 Calcium 9.2 Assessment and Plan (1) CHF exacerbation: Status: Acute Plan 64-year-old male with a PMH significant for alcoholic liver cirrhosis, HFpEF, hx of cardiac arrest,?dtf-[id number]-eelxxamkk type 2 diabetes, asthma/COPD overlap syndrome on 2L home O2, polysubstance abuse including alcohol and heroin, who presents to the ED with?increased swelling in lower legs, thighs, and abdomen x3 weeks. Acute HFpEF exacerbation Pt with SOB, ALONZO, anasarca, LLE, reported 40lb weight gain, elevated BNP Likely secondary to medication noncompliance IV lasix Monitor I/O, BMP, daily weights Monitor on telemetry -3.3L Alcohol use disorder Drinks 4 beers and 5+ nips daily Ethyl alcohol level 172 at time of presentation Monitor on CIWA pheobarbitol Addiction medicine consult Asthma/COPD overlap syndrome Not in acute exacerbation Pt chronically on 2 L home O2 Continue home inhalers HLD Statin Alcoholic cirrhosis Ammonia mildly elevated at 65, similar to previous Continue lactulose Polysubstance use disorder Continue methadone DARRIAN cpap as needed and bedtime DVT prophylaxis with Lovenox Full code Quality Stroke Does the patient have a stroke diagnosis?: No VTE Prior VTE?: No VTE Risk Level:: Medical - moderate - high VTE Device Contraindication: Treatment Not Indicated VTE Drug Contraindication: N/A - Med Ordered
[2024-11-16] MEDS: PHENobarbitaL 30 MG TABLET 270 MG PO (14:08)
--- NOTE | 2024-11-16 15:51 | P.CDIM_ITS ---
PROVIDER RESPONSE TEXT: To clarify, the appropriate diagnosis supported by the clinical indicators: Obesity Due to excess calories QUERY TEXT: PHYSICIAN'S DOCUMENTATION REQUEST Date of Query: 11/16/2024 02:14 PM EDT Patient Name: Isael Britton Admit Date: 11/14/2024 Dear Cherise Ridley CHOIR MEMBER, A review of the medical record indicates additional documentation may be needed. Please review below and update the documentation accordingly. Clinical Indicators: Height: ( ) 5'7 Weight: ( ) 116.6 kg BMI: ( ) 40.3 Other Clinical Notes Supporting Significance of the BMI: No Nutritional Assessment done If possible, please provide an associated diagnosis related to the abnormal BMI, such as: Overweight Obesity Due to excess calories Obesity Drug induced Obesity Due to other cause Specify the other cause Severe or Morbid Obesity With alveolar hypoventilation Severe or Morbid Obesity Without alveolar hypoventilation BMI is not significant Other (explain) Clinically unable to determine (explain) Thank you, Nena Alvarado RN Use of terms such as suspected, likely, concern for, or probable (associated with a specific diagnosi s that is being evaluated, monitored, or treated as if it exists) are acceptable and can be coded in the inpatient se tting, when documented at the time of discharge. Please use your independent medical judgment in providing your response. THIS QUERY IS PART OF THE PERMANENT MEDICAL RECORD
[2024-11-16] MEDS: PHENobarbitaL 30 MG TABLET 210 MG PO ×2 (16:38→18:44)
[2024-11-16] MEDS: Enoxaparin Sodium 40 MG/0.4 ML SYRINGE SUBCUT (18:44)
[2024-11-16] MEDS: PHENobarbitaL sodium 130 MG/ML VIAL IM (20:06)
[2024-11-16] MEDS: Atorvastatin Calcium 80 MG TABLET PO (20:25)
[2024-11-16] MEDS: Prazosin HCL 1 MG CAPSULE 2 MG PO (20:25)
[2024-11-16] MEDS: Sennosides 8.6 MG TABLET 17.2 MG PO (20:25)
[2024-11-16] MEDS: diazePAM 10 MG/2 ML CARTRIDGE IVPUSH ×3 (20:26→21:42)
--- NOTE | 2024-11-16 20:29 | PC.NURSE ---
Addendum entered by Janett Buchanan RN 11/16/24 21:45: MD to bedside. Pt condition unchanged. MD advised additional doses of IVP valium and IM phenobarbital, administered. Breathing remains even and unlabored without distress, spo2 mid 90's since administration. Labs ordered, phlebotomy requested to bedside. Addendum entered by Janett Buchanan RN 11/16/24 21:19: 21:00: Patient again with severe agitation and restlessness, attempting to hit and kick staff to get OOB, stating he needs to go home and drink. Pt was unable to redirect despite staff x3 at bedside. Security called to bedside. MD notified and orders for another 10mg IV valium. MD requested to bedside. 1:! Haitian speaking sitter continues at bedside. Original Note: Assumed care of this patient at 19:00. Patient A&Ox3, restless/agitated, pulling at nc/o2/tele monitoring. Pt disoriented to place, and exit seeking, stating with aerial photograph interpreter at bedside he wanted to go home for an hour or two for a drink . Difficult to redirect initially, requiring weigher and charger and security to bedside to assist with redirecting. Patient was agreeable to transferring back to bed from the chair with 2-3+ assist. CIWA scoring 16. Covering Dr. Pastor notified. orders for IM phenobarbital and IV valium. Pt verbalized understanding that he was agreeable to medications after redirecting with sign language interpreter present. VSS. Patient remains on continuous spo2 monitoring and tele. 1:1 sitter obtained and at bedside to assist with maintaining safety. Bed alarm/high fall measures in place. Plan of care continues.
[2024-11-16] MEDS: PHENobarbitaL sodium 130 MG/ML VIAL 260 MG IM (21:42)
[2024-11-16 22:02] LABS: VBG Base Excess 18.2 mmol/L; VBG HCO3 43 mmol/L (22-26); VBG pCO2 50 mmHg; VBG pH 7.54 (7.32-7.43); VBG pO2 83 mmHg
[2024-11-16 22:04] LABS: Venous Blood Gas Refer to POC result
[2024-11-16 22:08] LABS: Basophils Percent Auto 0.4 % (0-2); Imm Gran Abs Auto 0.02 X10*3/uL (0.00-0.03); Imm Gran Pct Auto 0.3 % (0.0-0.4); MANUAL DIFF FLAG SCAN; PLT CLUMP 1; Red Cell Distribution Width 15.9 % (11.0-16.0); SCAN SMEAR FLAG 1
[2024-11-16 22:10] LABS: Eosinophils Absolute Auto 0.1 X10*3/uL (0.0-0.4); Eosinophils Percent Auto 1.5 % (0-4); Hematocrit 38.2 % (42.0-52.0); Hemoglobin 12.2 g/dl (14.0-18.0); Lymphocytes Absolute Auto 1.1 X10*3/uL (1.2-4.9); Lymphocytes Percent Auto 14.6 % (20-40); Mean Corpuscular HGB Conc 31.9 g/dl (31.0-36.0); Mean Corpuscular Hemoglobin 29.6 pg (27.0-33.0); Mean Corpuscular Volume 92.7 fL (80.0-98.0); Mean Platelet Volume 9.7 fL (9.4-12.4); Monocytes Absolute Auto 0.7 X10*3/uL (0.1-1.2); Monocytes Percent Auto 9.6 % (2-11); Neutrophils Absolute Auto 5.4 x10*3/uL (2.0-8.3); Neutrophils Percent Auto 73.6 % (45-73); Red Blood Count 4.12 X10*6/uL (4.60-5.80)
[2024-11-16 22:17] LABS: Alanine Aminotransferase 64 U/L (0-40); Albumin Level 3.8 g/dL (3.5-5.0); Alkaline Phosphatase 173 U/L (39-117); Anion Gap 12 (12-20); Aspartate Amino Transferase 102 U/L (5-37); Bilirubin Total 1.8 mg/dL (0.0-1.0); Blood Urea Nitrogen 21 mg/dL (9-16); Calcium 9.6 mg/dL (8.4-10.2); Carbon Dioxide 39 mmol/L (22-29); Chloride 92 mmol/L (96-108); Creatinine Clr Calc Pharmacy 72.4; Estimated Glomerular Filt Rate 56; Glucose Random 134 mg/dL (60-115); Magnesium 1.6 mg/dL (1.6-2.6); Potassium 3.6 mmol/L (3.3-5.1); Sodium 139 mmol/L (135-145); Total Protein 8.1 g/dL (6.5-8.0)
[2024-11-16 22:38] LABS: Platelet Count 139 X10*3/uL (160-400); White Blood Count 7.5 X10*3/uL (4.8-10.8)
[2024-11-16 22:39] LABS: SLIDE REVIEW VERIFIED
[2024-11-17] VITALS (9 sets, daily range): BP systolic 114–135; BP diastolic 63–91; PULSE 56–76; RESP 16–20; TEMP 36.3–37.2; O2SAT 90–100; BMI 39.9
[2024-11-17 07:08] LABS: Anion Gap 15 (12-20); Blood Urea Nitrogen 24 mg/dL (9-16); Calcium 9.5 mg/dL (8.4-10.2); Carbon Dioxide 38 mmol/L (22-29); Chloride 91 mmol/L (96-108); Creatinine Clr Calc Pharmacy 78.1; Estimated Glomerular Filt Rate > 60; Glucose Random 100 mg/dL (60-115); Potassium 3.5 mmol/L (3.3-5.1); Sodium 140 mmol/L (135-145)
[2024-11-17] MEDS: Albuterol/Iprat 2.5/0.5MG 3 ML AMPUL.NEB INHALE ×3 (07:48→19:21)
--- NOTE | 2024-11-17 09:45 | HO.PM.IMPN ---
Subjective Subjective Date of Service: 11/17/24 Interval History: Follow up ETOH, CHF encephalopathic overnight required a sitter Review of Systems All other system reviewed and are negative Physical Exam Vital Signs: Vital Signs: Last Vital Signs Temp 97.4 F 11/17/24 07:04 Pulse 56 11/17/24 07:49 Resp 20 11/17/24 07:49 BP 135/91 H 11/17/24 07:04 Pulse Ox 100 11/17/24 07:04 O2 Del Method Nasal Cannula 11/17/24 07:04 O2 Flow Rate 2 11/17/24 07:04 Oxygen Flow Rate 3 11/14/24 14:33 BMI result Body Mass Index 39.9 Appearing in no acute distress lung sounds are clear to auscultation heart regular rate rhythm, clear S1, S2 positive bowel sounds, abdomen is soft, nontender neuro patient is sleeping Objective Data Active Medications Acetaminophen (Acetaminophen 325 Mg Tablet) 650 mg PO Q6H PRN PRN Reason: Pain, Mild 1-3,fever,headache Albuterol/Ipratropium (Albuterol/Iprat 2.5/0.5mg 3 Ml Ampul.Neb) 3 ml INHALE TID [facility] Last Admin: 11/17/24 07:48 Dose: 3 ml Documented By: KATELIN Atorvastatin Calcium (Atorvastatin Calcium 80 Mg Tablet) 80 mg PO BEDTIME [facility] Last Admin: 11/16/24 20:25 Dose: 80 mg Documented By: SALLY Calcium Carbonate (Calcium Carbonate 750 Mg Tab.Chew) 750 mg PO Q4H PRN PRN Reason: Heartburn Empagliflozin (Empagliflozin 25 Mg Tablet) 25 mg PO DAILY [facility] Last Admin: 11/16/24 10:23 Dose: 25 mg Documented By: GINA Enoxaparin Sodium (Enoxaparin Sodium 40 Mg/0.4 Ml Syringe) 40 mg SUBCUT Q24H [facility] Last Admin: 11/16/24 18:44 Dose: 40 mg Documented By: MIGUEL ÁNGEL Famotidine (Famotidine 20 Mg Tablet) 20 mg PO BID [facility] Last Admin: 11/16/24 20:25 Dose: 20 mg Documented By: SALLY Folic Acid (Folic Acid 1 Mg Tablet) 1 mg PO DAILY [facility] Last Admin: 11/16/24 10:23 Dose: 1 mg Documented By: GINA Furosemide (Furosemide 40 Mg/4 Ml Vial) 40 mg IVPUSH BID@0900,1800 [facility]; Protocol Last Admin: 11/16/24 16:39 Dose: 40 mg Documented By: MIGUEL ÁNGEL Lactulose (Lactulose 20 Gm/30 Ml Solution) 10 gm PO BID [facility] Last Admin: 11/16/24 20:25 Dose: 10 gm Documented By: SALLY Lorazepam (Lorazepam 1 Mg Tablet) 1 mg PO Q4H PRN PRN Reason: Breakthrough alcohol withdrawa Stop: 11/18/24 19:04 Losartan Potassium (Losartan Potassium 25 Mg Tablet) 25 mg PO DAILY [facility]; Protocol Last Admin: 11/16/24 10:22 Dose: 25 mg Documented By: GINA Magnesium Hydroxide (Milk Of Magnesia 30 Ml Oral.Susp) 30 ml PO DAILY PRN PRN Reason: Constipation Melatonin (Melatonin 3 Mg Tablet) 6 mg PO BEDTIME PRN PRN Reason: Insomnia Methadone HCl (Methadone Hcl 20 Mg/2 Ml Oral.Conc) 60 mg PO DAILY@0800 [facility] Last Admin: 11/16/24 10:23 Dose: 60 mg Documented By: GINA Co-signed By: TESHA Multivitamins/Vitamin C (Multivitamin Tablet) 1 tab PO DAILY [facility] Stop: 11/18/24 08:59 Last Admin: 11/16/24 10:22 Dose: 1 tab Documented By: GINA Pharmacy Consult (Consult Rx Etoh Phenob Po Only) 1 each MISCELLANE ONCE PRN; Protocol PRN Reason: Consult order Phenobarbital (Phenobarbital 15 Mg Tablet) 45 mg PO BID [facility]; Protocol Stop: 11/18/24 21:01 Phenobarbital (Phenobarbital 30 Mg Tablet) 30 mg PO BID [facility]; Protocol Stop: 11/20/24 21:01 Phenobarbital (Phenobarbital 30 Mg Tablet) 30 mg PO DAILY [facility] Stop: 11/22/24 09:01 Prazosin HCl (Prazosin Hcl 1 Mg Capsule) 2 mg PO BEDTIME [facility]; Protocol Last Admin: 11/16/24 20:25 Dose: 2 mg Documented By: SALLY Senna (Sennosides 8.6 Mg Tablet) 17.2 mg PO BEDTIME [facility] Last Admin: 11/16/24 20:25 Dose: 17.2 mg Documented By: SALLY Sodium Chloride (0.9 % Sodium Chloride Flush 3 Ml Syringe) 3 ml IVFLUSH QSHIFT [facility] Last Admin: 11/16/24 20:26 Dose: 3 ml Documented By: SALLY Thiamine HCl (Thiamine Hcl 100 Mg Tablet) 100 mg PO DAILY [facility] Last Admin: 11/16/24 10:24 Dose: 100 mg Documented By: GINA Vitamin D (Cholecalciferol (Vitamin D3) 25 Mcg Tablet) 100 mcg PO DAILY [facility] Last Admin: 11/16/24 10:23 Dose: 100 mcg Documented By: GINA Labs 11/16/24 21:53 11/17/24 10:12 Labs: Laboratory Results - last 24 hr 11/16/24 11/16/24 11/17/24 21:53 21:59 06:41 MCV 92.7 MCH 29.6 MCHC 31.9 RDW 15.9 Plt Count 139 L MPV 9.7 Immature Gran % (Auto) 0.3 Neut % (Auto) 73.6 H Lymph % (Auto) 14.6 L [place] % (Auto) 9.6 Eos % (Auto) 1.5 Baso % (Auto) 0.4 Lymph # (Auto) 1.1 L [place] # (Auto) 0.7 Eos # (Auto) 0.1 Baso # (Auto) 0.0 Abs Immat Gran (auto) 0.02 Absolute Neuts (auto) 5.4 Absolute Nucleated RBC 0.000 Nucleated RBC % (auto) 0.0 Smear Tech's Comments VERIFIED VBG pH 7.54 H VBG pCO2 50 VBG pO2 83 VBG HCO3 43 H VBG O2 Saturation 98.0 VBG Base Excess 18.2 Anion Gap 12 15 Estim Creat Clear Calc 72.4 78.1 Estimated GFR 56 > 60 Random Glucose 134 H 100 Calcium 9.6 9.5 Magnesium 1.6 Total Bilirubin 1.8 H AST 102 H ALT 64 H Alkaline Phosphatase 173 H Total Creatine Kinase 152 Total Protein 8.1 H Albumin 3.8 Assessment and Plan (1) CHF exacerbation: Status: Acute Plan 64-year-old male with a PMH significant for alcoholic liver cirrhosis, HFpEF, hx of cardiac arrest,?spv-yfrjhde-tgtalpboo type 2 diabetes, asthma/COPD overlap syndrome on 2L home O2, polysubstance abuse including alcohol and heroin, who presents to the ED with?increased swelling in lower legs, thighs, and abdomen x3 weeks. Encephalopathy Overnight required a sitter and Valium Possibly related to alcohol withdrawal, on phenobarbital protocol now check ammonia Alcohol use disorder Drinks 4 beers and 5+ nips daily Ethyl alcohol level 172 at time of presentation Monitor on CIWA Phenobarbital protocol Addiction medicine following Acute HFpEF exacerbation Pt with SOB, ALONZO, anasarca, LLE, reported 40lb weight gain, elevated BNP Likely secondary to medication noncompliance IV lasix Monitor I/O, BMP, daily weights Monitor on telemetry -6.8L, down 6 kg Asthma/COPD overlap syndrome Not in acute exacerbation Pt chronically on 2 L home O2 Continue home inhalers HLD Statin Alcoholic cirrhosis Ammonia mildly elevated at 65, similar to previous Continue lactulose Polysubstance use disorder Continue methadone DARRIAN cpap as needed and bedtime DVT prophylaxis with Lovenox Full code Quality Stroke Does the patient have a stroke diagnosis?: No VTE Prior VTE?: No VTE Risk Level:: Medical - moderate - high VTE Device Contraindication: Treatment Not Indicated VTE Drug Contraindication: N/A - Med Ordered
[2024-11-17 10:32] LABS: Anion Gap 11 (12-20); Blood Urea Nitrogen 24 mg/dL (9-16); Calcium 9.5 mg/dL (8.4-10.2); Carbon Dioxide 38 mmol/L (22-29); Chloride 92 mmol/L (96-108); Creatinine Clr Calc Pharmacy 80.8; Estimated Glomerular Filt Rate > 60; Glucose Random 95 mg/dL (60-115); Potassium 3.8 mmol/L (3.3-5.1); Sodium 137 mmol/L (135-145)
[2024-11-17] MEDS: Cholecalciferol (Vitamin D3) 25 MCG TABLET 100 MCG PO (10:42)
[2024-11-17] MEDS: Famotidine 20 MG TABLET PO ×2 (10:44→22:28)
[2024-11-17] MEDS: methADONE HCl 20 MG/2 ML ORAL.CONC 60 MG PO (10:44)
[2024-11-17] MEDS: Losartan Potassium 25 MG TABLET PO (10:44)
[2024-11-17] MEDS: Empagliflozin 25 MG TABLET PO (10:45)
[2024-11-17] MEDS: Furosemide 40 MG/4 ML VIAL IVPUSH ×2 (10:45→18:32)
[2024-11-17] MEDS: Folic Acid 1 MG TABLET PO (10:45)
[2024-11-17] MEDS: Multivitamin TABLET 1 TAB PO (10:45)
[2024-11-17] MEDS: Lactulose 20 GM/30 ML SOLUTION 10 GM PO ×2 (10:45→22:27)
[2024-11-17] MEDS: PHENobarbitaL 15 MG TABLET 45 MG PO (10:45)
[2024-11-17] MEDS: Thiamine HCL 100 MG TABLET PO (10:45)
[2024-11-17 10:57] LABS: B Type Natriuretic Peptide 454 pg/mL (<100)
[2024-11-17] MEDS: 0.9 % Sodium Chloride Flush 3 ML SYRINGE IVFLUSH ×3 (11:03→22:28)
[2024-11-17 11:40] LABS: Ammonia 47 umol/L (13-55)
[2024-11-17] MEDS: Enoxaparin Sodium 40 MG/0.4 ML SYRINGE SUBCUT (18:31)
[2024-11-17] MEDS: Atorvastatin Calcium 80 MG TABLET PO (22:26)
[2024-11-17] MEDS: Melatonin 3 MG TABLET 6 MG PO (22:28)
[2024-11-18] VITALS (10 sets, daily range): BP systolic 111–145; BP diastolic 57–82; PULSE 58–67; RESP 16–20; TEMP 36.1–36.6; O2SAT 93–95; BMI 38.3
[2024-11-18] MEDS: Albuterol/Iprat 2.5/0.5MG 3 ML AMPUL.NEB INHALE ×3 (07:26→19:16)
[2024-11-18] MEDS: Lactulose 20 GM/30 ML SOLUTION 10 GM PO ×2 (09:21→20:03)
[2024-11-18] MEDS: Famotidine 20 MG TABLET PO ×2 (09:22→20:02)
[2024-11-18] MEDS: Thiamine HCL 100 MG TABLET PO (09:22)
[2024-11-18] MEDS: Furosemide 40 MG/4 ML VIAL IVPUSH (09:22)
[2024-11-18] MEDS: Losartan Potassium 25 MG TABLET PO (09:22)
[2024-11-18] MEDS: Cholecalciferol (Vitamin D3) 25 MCG TABLET 100 MCG PO (09:22)
[2024-11-18] MEDS: Empagliflozin 25 MG TABLET PO (09:23)
[2024-11-18] MEDS: 0.9 % Sodium Chloride Flush 3 ML SYRINGE IVFLUSH ×3 (09:23→20:03)
[2024-11-18] MEDS: methADONE HCl 20 MG/2 ML ORAL.CONC 60 MG PO (09:23)
[2024-11-18] MEDS: Folic Acid 1 MG TABLET PO (09:23)
[2024-11-18 09:54] LABS: Alanine Aminotransferase 54 U/L (0-40); Albumin Level 3.4 g/dL (3.5-5.0); Alkaline Phosphatase 152 U/L (39-117); Anion Gap 12 (12-20); Aspartate Amino Transferase 73 U/L (5-37); Bilirubin Direct 0.7 mg/dL (0.0-0.5); Bilirubin Total 1.3 mg/dL (0.0-1.0); Blood Urea Nitrogen 30 mg/dL (9-16); Calcium 9.2 mg/dL (8.4-10.2); Carbon Dioxide 39 mmol/L (22-29); Chloride 90 mmol/L (96-108); Creatinine Clr Calc Pharmacy 66.4; Estimated Glomerular Filt Rate 53; Glucose Random 178 mg/dL (60-115); Potassium 3.7 mmol/L (3.3-5.1); Sodium 137 mmol/L (135-145); Total Protein 7.5 g/dL (6.5-8.0)
[2024-11-18 10:00] LABS: B Type Natriuretic Peptide 189 pg/mL (<100)
--- NOTE | 2024-11-18 10:49 | MHC.CM.PN ---
Per ROUNDS discussion, Patient is not yet medically cleared for dc (still being diuresed); PT is recommending STR and CM will continue to follow.
--- NOTE | 2024-11-18 12:17 | P.PNIM_ITS ---
Subjective Subjective Date of Service: 11/18/24 Interval History: Seen and examined this morning Follow-up for CHF exacerbation, encephalopathy, alcohol withdrawal patient awake, alert and less confused today- alert to person, place and knows why he is in the hospital Reports improvement in breathing Review of Systems Review of Systems: Yes all other systems are reviewed and are negative Constitutional Constitutional: Denies chills and Denies fever(s) Cardiovascular Cardiovascular: Denies chest pain and Denies dyspnea Respiratory Respiratory: Denies cough and Denies dyspnea Gastrointestinal Gastrointestinal: Denies abdominal pain, Denies nausea and Denies vomiting Physical Exam 2 Vital Signs: Vital Signs: Last Vital Signs Temp 97.3 F 11/18/24 11:47 Pulse 60 11/18/24 11:47 Resp 18 11/18/24 11:47 BP 120/57 L 11/18/24 11:47 Pulse Ox 93 11/18/24 11:47 O2 Del Method Nasal Cannula 11/18/24 11:47 O2 Flow Rate 2 11/18/24 11:47 Oxygen Flow Rate 3 11/14/24 14:33 BMI result Body Mass Index 38.3 Const: General: cooperative, comfortable, no acute distress, alert and awake Nutritional Appearance: obese Orientation/consciousness: oriented to person and oriented to place Resp: Effort & Inspection: normal respiratory effort, able to speak in complete sentences, no respiratory distress and no use of accessory muscles Cardio: Other: difficult to assess JVD due to body habitus/neck Neuro: General: oriented to person, oriented to place, moves all extremities and CN's II-XI intact bilaterally Extrem: Other: trace leg edema Objective Data Active Medications Acetaminophen (Acetaminophen 325 Mg Tablet) 650 mg PO Q6H PRN PRN Reason: Pain, Mild 1-3,fever,headache Albuterol/Ipratropium (Albuterol/Iprat 2.5/0.5mg 3 Ml Ampul.Neb) 3 ml INHALE TID [facility] Last Admin: 11/18/24 07:26 Dose: 3 ml Documented By: JEAN Atorvastatin Calcium (Atorvastatin Calcium 80 Mg Tablet) 80 mg PO BEDTIME [facility] Last Admin: 11/17/24 22:26 Dose: 80 mg Documented By: KAYLIE Bumetanide (Bumetanide 1 Mg Tablet) 1 mg PO DAILY [facility]; Protocol Calcium Carbonate (Calcium Carbonate 750 Mg Tab.Chew) 750 mg PO Q4H PRN PRN Reason: Heartburn Empagliflozin (Empagliflozin 25 Mg Tablet) 25 mg PO DAILY [facility] Last Admin: 11/18/24 09:23 Dose: 25 mg Documented By: VINOD Enoxaparin Sodium (Enoxaparin Sodium 40 Mg/0.4 Ml Syringe) 40 mg SUBCUT Q24H [facility] Last Admin: 11/17/24 18:31 Dose: 40 mg Documented By: MIGUEL ÁNGEL Famotidine (Famotidine 20 Mg Tablet) 20 mg PO BID [facility] Last Admin: 11/18/24 09:22 Dose: 20 mg Documented By: VINOD Folic Acid (Folic Acid 1 Mg Tablet) 1 mg PO DAILY [facility] Last Admin: 11/18/24 09:23 Dose: 1 mg Documented By: VINOD Lactulose (Lactulose 20 Gm/30 Ml Solution) 10 gm PO BID [facility] Last Admin: 11/18/24 09:21 Dose: 10 gm Documented By: VINOD Lorazepam (Lorazepam 1 Mg Tablet) 1 mg PO Q4H PRN PRN Reason: Breakthrough alcohol withdrawa Stop: 11/18/24 19:04 Losartan Potassium (Losartan Potassium 25 Mg Tablet) 25 mg PO DAILY [facility]; Protocol Last Admin: 11/18/24 09:22 Dose: 25 mg Documented By: VINOD Magnesium Hydroxide (Milk Of Magnesia 30 Ml Oral.Susp) 30 ml PO DAILY PRN PRN Reason: Constipation Melatonin (Melatonin 3 Mg Tablet) 6 mg PO BEDTIME PRN PRN Reason: Insomnia Last Admin: 11/17/24 22:28 Dose: 6 mg Documented By: KAYLIE Methadone HCl (Methadone Hcl 20 Mg/2 Ml Oral.Conc) 60 mg PO DAILY@0800 [facility] Last Admin: 11/18/24 09:23 Dose: 60 mg Documented By: VINOD Co-signed By: DEJON Pharmacy Consult (Consult Rx Etoh Phenob Po Only) 1 each MISCELLANE ONCE PRN; Protocol PRN Reason: Consult order Phenobarbital (Phenobarbital 15 Mg Tablet) 45 mg PO BID [facility]; Protocol Last Admin: 11/17/24 10:45 Dose: 45 mg Documented By: MIGUEL ÁNGEL Phenobarbital (Phenobarbital 30 Mg Tablet) 30 mg PO BID [facility]; Protocol Stop: 11/20/24 21:01 Phenobarbital (Phenobarbital 30 Mg Tablet) 30 mg PO DAILY [facility] Stop: 11/22/24 09:01 Prazosin HCl (Prazosin Hcl 1 Mg Capsule) 2 mg PO BEDTIME [facility]; Protocol Last Admin: 11/16/24 20:25 Dose: 2 mg Documented By: SALLY Senna (Sennosides 8.6 Mg Tablet) 17.2 mg PO BEDTIME [facility] Last Admin: 11/17/24 22:28 Dose: Not Given Documented By: KAYLIE Non-Admin Reason: Patient Refused Sodium Chloride (0.9 % Sodium Chloride Flush 3 Ml Syringe) 3 ml IVFLUSH QSHIFT [facility] Last Admin: 11/18/24 09:23 Dose: 3 ml Documented By: VINOD Thiamine HCl (Thiamine Hcl 100 Mg Tablet) 100 mg PO DAILY [facility] Last Admin: 11/18/24 09:22 Dose: 100 mg Documented By: VINOD Vitamin D (Cholecalciferol (Vitamin D3) 25 Mcg Tablet) 100 mcg PO DAILY [facility] Last Admin: 11/18/24 09:22 Dose: 100 mcg Documented By: VINOD Labs 11/16/24 21:53 11/18/24 09:23 Labs: Laboratory Results - last 24 hr 11/18/24 09:23 Anion Gap 12 Estim Creat Clear Calc 66.4 Estimated GFR 53 Random Glucose 178 H Calcium 9.2 Total Bilirubin 1.3 H Direct Bilirubin 0.7 H AST 73 H ALT 54 H Alkaline Phosphatase 152 H B-Natriuretic Peptide 189 H Total Protein 7.5 Albumin 3.4 L Assessment and Plan (1) Alcohol intoxication: Status: Acute (2) Congestive heart failure: Status: Acute Plan 64-year-old male with a PMH significant for alcoholic liver cirrhosis, HFpEF, hx of cardiac arrest,?qyc-lqskvzk-hdoqsyfok type 2 diabetes, asthma/COPD overlap syndrome on 2L home O2, polysubstance abuse including alcohol and heroin, who presents to the ED with?increased swelling in lower legs, thighs, and abdomen x3 weeks. acute toxic metabolic Encephalopathy Possibly related to alcohol withdrawal. improving. patient awake/alert this am, less confused ammonia wnl Alcohol use disorder Drinks 4 beers and 5+ nips daily Ethyl alcohol level 172 at time of presentation [facility] low Phenobarbital protocol Addiction medicine following - receiving acamprosate scripts from [facility] which he will continue upon discharge. Continue thiamine, folic acid supplementation Acute HFpEF exacerbation Pt with SOB, ALONZO, anasarca, LLE, reported 40lb weight gain, elevated BNP Likely secondary to medication noncompliance treated with IV lasix, BNP trending down, sob resolved. - nearly 9L resume baseline bumex Monitor I/O, BMP, daily weights Importance of medication compliance was discussed in detail with pt and significant other at bedside Asthma/COPD overlap syndrome Not in acute exacerbation Pt chronically on 2 L home O2 Continue home inhalers HLD Statin Alcoholic cirrhosis elevated LFTs, chronically elevated - trending down; no abdominal pain Ammonia mildly elevated at 65, similar to previous Continue lactulose Polysubstance use disorder Continue methadone DARRIAN cpap as needed and bedtime DVT prophylaxis with Lovenox Full code PT evaluation pending Quality Stroke Does the patient have a stroke diagnosis?: No VTE Prior VTE?: No VTE Risk Level:: Medical - moderate - high VTE Device Contraindication: Treatment Not Indicated VTE Drug Contraindication: N/A - Med Ordered
[2024-11-18] MEDS: Sennosides 8.6 MG TABLET 17.2 MG PO (20:02)
[2024-11-18] MEDS: Enoxaparin Sodium 40 MG/0.4 ML SYRINGE SUBCUT (20:03)
[2024-11-18] MEDS: Atorvastatin Calcium 80 MG TABLET PO (20:03)
[2024-11-19] VITALS (10 sets, daily range): BP systolic 119–152; BP diastolic 64–90; PULSE 59–65; RESP 16–24; TEMP 36.2–36.9; O2SAT 92–96; BMI 38.7; BMI 36.5
[2024-11-19 07:07] LABS: Anion Gap 13 (12-20); Blood Urea Nitrogen 27 mg/dL (9-16); Calcium 9.5 mg/dL (8.4-10.2); Carbon Dioxide 38 mmol/L (22-29); Chloride 92 mmol/L (96-108); Creatinine Clr Calc Pharmacy 69.3; Estimated Glomerular Filt Rate 55; Glucose Random 85 mg/dL (60-115); Potassium 4.1 mmol/L (3.3-5.1); Sodium 139 mmol/L (135-145)
[2024-11-19] MEDS: Albuterol/Iprat 2.5/0.5MG 3 ML AMPUL.NEB INHALE ×3 (07:43→20:02)
[2024-11-19 08:15] LABS: Alanine Aminotransferase 45 U/L (0-40); Albumin Level 3.5 g/dL (3.5-5.0); Alkaline Phosphatase 161 U/L (39-117); Aspartate Amino Transferase 65 U/L (5-37); Bilirubin Direct 0.5 mg/dL (0.0-0.5); Total Protein 7.7 g/dL (6.5-8.0)
[2024-11-19] MEDS: 0.9 % Sodium Chloride Flush 3 ML SYRINGE IVFLUSH ×2 (09:32→18:39)
[2024-11-19] MEDS: methADONE HCl 20 MG/2 ML ORAL.CONC 60 MG PO (09:33)
[2024-11-19] MEDS: Lactulose 20 GM/30 ML SOLUTION 10 GM PO (09:33)
[2024-11-19] MEDS: PHENobarbitaL 30 MG TABLET PO (09:33)
[2024-11-19] MEDS: Losartan Potassium 25 MG TABLET PO (09:33)
[2024-11-19] MEDS: Folic Acid 1 MG TABLET PO (09:33)
[2024-11-19] MEDS: Thiamine HCL 100 MG TABLET PO (09:34)
[2024-11-19] MEDS: Cholecalciferol (Vitamin D3) 25 MCG TABLET 100 MCG PO (09:34)
[2024-11-19] MEDS: Empagliflozin 25 MG TABLET PO (09:34)
[2024-11-19] MEDS: Famotidine 20 MG TABLET PO ×2 (09:34→21:17)
[2024-11-19] MEDS: Bumetanide 1 MG TABLET PO (09:34)
[2024-11-19] MEDS: Thiamine HCL 200 MG in 0.9 % Sodium Chloride 100 ML 204 MG IV ×2 (09:35→20:55)
--- NOTE | 2024-11-19 10:30 | MHC.CM.PN ---
PT is recommending STR; there are 3 SNFs in the [place] area who are following and have been updated today, but no bed offers. Patient will need Methadone Guest Dosing at time of dc.CM will continue to follow.
[2024-11-19 11:30] LABS: Ammonia 52 umol/L (13-55)
--- NOTE | 2024-11-19 11:37 | P.PNIM_ITS ---
Subjective Subjective Date of Service: 11/19/24 Interval History: seen and examined this morning follow up for CHF, etoh withdrawal, respiratory failure History obtained with the assistance of a health care / medical job titles pt feels nice wants to go home denies sob alert and oriented to place and time, unable to recall month or year Review of Systems All other system reviewed and are negative Review of Systems: Yes all other systems are reviewed and are negative Constitutional Constitutional: Denies chills and Denies fever(s) Cardiovascular Cardiovascular: Denies chest pain, Denies palpitations and Denies dyspnea Respiratory Respiratory: Denies cough and Denies dyspnea Gastrointestinal Gastrointestinal: Denies abdominal pain, Denies nausea and Denies vomiting Endocrine Endocrine: Denies palpitations Physical Exam 2 Vital Signs: Vital Signs: Last Vital Signs Temp 98.5 F 11/19/24 11:18 Pulse 63 11/19/24 11:18 Resp 20 11/19/24 11:18 BP 140/74 H 11/19/24 11:18 Pulse Ox 96 11/19/24 11:18 O2 Del Method Nasal Cannula 11/19/24 11:18 O2 Flow Rate 2 11/19/24 11:18 Oxygen Flow Rate 3 11/14/24 14:33 BMI result Body Mass Index 36.5 Const: General: cooperative, comfortable, no acute distress, alert and awake Nutritional Appearance: obese Orientation/consciousness: oriented to person and oriented to place Resp: Effort & Inspection: normal respiratory effort, able to speak in complete sentences, no respiratory distress and no use of accessory muscles Cardio: Other: difficult to assess JVD due to body habitus/neck Neuro: Other: + asterixis General: oriented to person, oriented to place, moves all extremities and CN's II-XI intact bilaterally Extrem: Other: trace leg edema Objective Data Active Medications Acetaminophen (Acetaminophen 325 Mg Tablet) 650 mg PO Q6H PRN PRN Reason: Pain, Mild 1-3,fever,headache Albuterol/Ipratropium (Albuterol/Iprat 2.5/0.5mg 3 Ml Ampul.Neb) 3 ml INHALE TID [facility] Last Admin: 11/19/24 07:43 Dose: 3 ml Documented By: ZAHEER Atorvastatin Calcium (Atorvastatin Calcium 80 Mg Tablet) 80 mg PO BEDTIME [facility] Last Admin: 11/18/24 20:03 Dose: 80 mg Documented By: HO.FOGARTB Bumetanide (Bumetanide 1 Mg Tablet) 1 mg PO DAILY [facility]; Protocol Last Admin: 11/19/24 09:34 Dose: 1 mg Documented By: VINOD Calcium Carbonate (Calcium Carbonate 750 Mg Tab.Chew) 750 mg PO Q4H PRN PRN Reason: Heartburn Empagliflozin (Empagliflozin 25 Mg Tablet) 25 mg PO DAILY [facility] Last Admin: 11/19/24 09:34 Dose: 25 mg Documented By: VINOD Enoxaparin Sodium (Enoxaparin Sodium 40 Mg/0.4 Ml Syringe) 40 mg SUBCUT Q24H [facility] Last Admin: 11/18/24 20:03 Dose: 40 mg Documented By: LAURY Famotidine (Famotidine 20 Mg Tablet) 20 mg PO BID [facility] Last Admin: 11/19/24 09:34 Dose: 20 mg Documented By: VINOD Folic Acid (Folic Acid 1 Mg Tablet) 1 mg PO DAILY [facility] Last Admin: 11/19/24 09:33 Dose: 1 mg Documented By: VINOD Thiamine HCl 200 mg/ Sodium (Chloride) 102 mls @ 204 mls/hr IV Q12H [facility] Last Admin: 11/19/24 09:35 Dose: 204 mls/hr Documented By: VINOD Lactulose (Lactulose 20 Gm/30 Ml Solution) 10 gm PO BID [facility] Last Admin: 11/19/24 09:33 Dose: 10 gm Documented By: VINOD Losartan Potassium (Losartan Potassium 25 Mg Tablet) 25 mg PO DAILY [facility]; Protocol Last Admin: 11/19/24 09:33 Dose: 25 mg Documented By: VINOD Magnesium Hydroxide (Milk Of Magnesia 30 Ml Oral.Susp) 30 ml PO DAILY PRN PRN Reason: Constipation Melatonin (Melatonin 3 Mg Tablet) 6 mg PO BEDTIME PRN PRN Reason: Insomnia Last Admin: 11/17/24 22:28 Dose: 6 mg Documented By: KAYLIE Methadone HCl (Methadone Hcl 20 Mg/2 Ml Oral.Conc) 60 mg PO DAILY@0800 [facility] Last Admin: 11/19/24 09:33 Dose: 60 mg Documented By: VINOD Co-signed By: KAREEN Pharmacy Consult (Consult Rx Etoh Phenob Po Only) 1 each MISCELLANE ONCE PRN; Protocol PRN Reason: Consult order Phenobarbital (Phenobarbital 15 Mg Tablet) 45 mg PO BID [facility]; Protocol Last Admin: 11/17/24 10:45 Dose: 45 mg Documented By: MIGUEL ÁNGEL Phenobarbital (Phenobarbital 30 Mg Tablet) 30 mg PO BID [facility]; Protocol Stop: 11/20/24 21:01 Last Admin: 11/19/24 09:33 Dose: 30 mg Documented By: VINOD Phenobarbital (Phenobarbital 30 Mg Tablet) 30 mg PO DAILY [facility] Stop: 11/22/24 09:01 Prazosin HCl (Prazosin Hcl 1 Mg Capsule) 2 mg PO BEDTIME [facility]; Protocol Last Admin: 11/16/24 20:25 Dose: 2 mg Documented By: SALLY Senna (Sennosides 8.6 Mg Tablet) 17.2 mg PO BEDTIME [facility] Last Admin: 11/18/24 20:02 Dose: 17.2 mg Documented By: MELYSSAARTCece Sodium Chloride (0.9 % Sodium Chloride Flush 3 Ml Syringe) 3 ml IVFLUSH QSHIFT [facility] Last Admin: 11/19/24 09:32 Dose: 3 ml Documented By: VINOD Thiamine HCl (Thiamine Hcl 100 Mg Tablet) 100 mg PO DAILY [facility] Last Admin: 11/19/24 09:34 Dose: 100 mg Documented By: VINOD Vitamin D (Cholecalciferol (Vitamin D3) 25 Mcg Tablet) 100 mcg PO DAILY [facility] Last Admin: 11/19/24 09:34 Dose: 100 mcg Documented By: VINOD Labs 11/16/24 21:53 11/19/24 06:37 Labs: Laboratory Results - last 24 hr 11/19/24 11/19/24 06:37 11:05 Hold Purple Top SEE NOTE Anion Gap 13 Estim Creat Clear Calc 69.3 Estimated GFR 55 Random Glucose 85 Calcium 9.5 Total Bilirubin 1.0 Direct Bilirubin 0.5 AST 65 H ALT 45 H Alkaline Phosphatase 161 H Ammonia 52 Total Protein 7.7 Albumin 3.5 Assessment and Plan (1) Congestive heart failure: Status: Acute (2) Liver cirrhosis: Status: Acute (3) Encephalopathy: Status: Acute Plan 64-year-old male with a PMH significant for alcoholic liver cirrhosis, HFpEF, hx of cardiac arrest,?byu-dqvqjio-bmuinwyuq type 2 diabetes, asthma/COPD overlap syndrome on 2L home O2, polysubstance abuse including alcohol and heroin, who presents to the ED with?increased swelling in lower legs, thighs, and abdomen x3 weeks. acute toxic metabolic Encephalopathy may be multifactorial due to hepatic encephalopathy and possibly due to etoh withdrawal awake, alert but remains confused ammonia 52 but asterisks on exam, no BM yesterday; will increase dose of lactulose TSH wnl. b12/folate pending; brain CT pending Alcohol use disorder Drinks 4 beers and 5+ nips daily Ethyl alcohol level 172 at time of presentation Phenobarbital protocol initially started but was stopped due to oversedation CIWA remains low Addiction medicine following - receiving acamprosate scripts from [facility] which he will continue upon discharge. Continue thiamine, folic acid supplementation (empiric IV thiamine due to confusion) Acute HFpEF exacerbation Pt with SOB, ALONZO, anasarca, LLE, reported 40lb weight gain, elevated BNP secondary to medication noncompliance treated with IV lasix, BNP trending down, sob resolved. - nearly 9L resume baseline bumex resume spironolcatone Monitor I/O, BMP, daily weights Importance of medication compliance was discussed in detail with pt and significant other at bedside Asthma/COPD overlap syndrome Not in acute exacerbation. no wheezing on exam Pt chronically on 2 L home O2 Continue home inhalers HLD Statin Alcoholic liver cirrhosis with thrombocytopenia elevated LFTs, chronically elevated - trending down; no abdominal pain Continue lactulose no ascites Polysubstance use disorder addiction med following - Continue methadone DARRIAN cpap as needed and bedtime DVT prophylaxis with Lovenox Full code PT evaluation pending Quality Stroke Does the patient have a stroke diagnosis?: No VTE Prior VTE?: No VTE Risk Level:: Medical - moderate - high VTE Device Contraindication: Treatment Not Indicated VTE Drug Contraindication: N/A - Med Ordered
[2024-11-19 11:56] LABS: TSH reflex Free T4 0.83 uIU/mL (0.32-4.0)
[2024-11-19 12:10] LABS: Folate 14.7 ng/mL (> or = 4.0); Vitamin B12 604 pg/mL (200-900)
[2024-11-19] MEDS: Lactulose 20 GM/30 ML SOLUTION PO ×3 (12:30→20:55)
--- NOTE | 2024-11-19 13:16 | MHC.CM.PN ---
CM attempted to speak with Patient and also spoke with [facility] @ listed #, with the assist of a Telephonic Chair Inspector. CM explained that PT is recommending STR and there are 2 accepting facilities in [place];Patient/family prefer that Patient returns home and resumes his home services. PA is aware; Patient is not yet medically cleared for dc. CM will follow.
[2024-11-19] MEDS: Sennosides 8.6 MG TABLET 17.2 MG PO (20:54)
[2024-11-19] MEDS: Spironolactone 25 MG TABLET PO (20:55)
[2024-11-19] MEDS: Enoxaparin Sodium 40 MG/0.4 ML SYRINGE SUBCUT (20:56)
[2024-11-19] MEDS: Atorvastatin Calcium 80 MG TABLET PO (20:57)
[2024-11-19 21:46] LABS: Glucose, Whole Blood 154 mg/dL (60-115)
[2024-11-20] MEDS: 0.9 % Sodium Chloride Flush 3 ML SYRINGE IVFLUSH ×2 (03:03→08:49)
[2024-11-20 03:42] VITALS: BP 156/67; PULSE 71; RESP 20; TEMP 36.4; O2SAT 93
[2024-11-20 05:31] VITALS: BMI 39.3
[2024-11-20 07:22] VITALS: BP 136/73; PULSE 55; RESP 14; TEMP 36.2; O2SAT 94
[2024-11-20 07:47] LABS: Anion Gap 8 (12-20); Blood Urea Nitrogen 29 mg/dL (9-16); Calcium 9.1 mg/dL (8.4-10.2); Carbon Dioxide 39 mmol/L (22-29); Chloride 97 mmol/L (96-108); Creatinine Clr Calc Pharmacy 66.4; Estimated Glomerular Filt Rate 52; Glucose Random 119 mg/dL (60-115); Sodium 140 mmol/L (135-145)
[2024-11-20] MEDS: Albuterol/Iprat 2.5/0.5MG 3 ML AMPUL.NEB INHALE (08:16)
[2024-11-20 08:17] VITALS: PULSE 56; RESP 17; O2SAT 95
[2024-11-20] MEDS: methADONE HCl 20 MG/2 ML ORAL.CONC 60 MG PO (08:39)
[2024-11-20] MEDS: Cholecalciferol (Vitamin D3) 25 MCG TABLET 100 MCG PO (08:40)
[2024-11-20] MEDS: Lactulose 20 GM/30 ML SOLUTION PO (08:40)
[2024-11-20] MEDS: Folic Acid 1 MG TABLET PO (08:40)
[2024-11-20] MEDS: Bumetanide 1 MG TABLET PO (08:40)
[2024-11-20] MEDS: Famotidine 20 MG TABLET PO (08:40)
[2024-11-20] MEDS: Losartan Potassium 25 MG TABLET PO (08:41)
[2024-11-20] MEDS: Thiamine HCL 200 MG in 0.9 % Sodium Chloride 100 ML 204 MG IV (08:50)
[2024-11-20] MEDS: Empagliflozin 25 MG TABLET PO (09:00)
[2024-11-20 11:14] VITALS: BP 148/79; PULSE 57; RESP 20; TEMP 36.3; O2SAT 92
--- NOTE | 2024-11-20 12:27 | P.PNIM_ITS ---
Subjective Subjective Date of Service: 11/20/24 Physical Exam 2 Vital Signs: Vital Signs: Last Vital Signs Temp 97.4 F 11/20/24 11:14 Pulse 57 11/20/24 11:14 Resp 20 11/20/24 11:14 BP 148/79 H 11/20/24 11:14 Pulse Ox 92 11/20/24 11:14 O2 Del Method Nasal Cannula 11/20/24 11:14 O2 Flow Rate 2 11/20/24 11:14 Oxygen Flow Rate 3 11/14/24 14:33 BMI result Body Mass Index 39.3 Objective Data Active Medications Acetaminophen (Acetaminophen 325 Mg Tablet) 650 mg PO Q6H PRN PRN Reason: Pain, Mild 1-3,fever,headache Albuterol/Ipratropium (Albuterol/Iprat 2.5/0.5mg 3 Ml Ampul.Neb) 3 ml INHALE TID [facility] Last Admin: 11/20/24 08:16 Dose: 3 ml Documented By: SCOT Atorvastatin Calcium (Atorvastatin Calcium 80 Mg Tablet) 80 mg PO BEDTIME [facility] Last Admin: 11/19/24 20:57 Dose: 80 mg Documented By: KARINA Bumetanide (Bumetanide 1 Mg Tablet) 1 mg PO DAILY [facility]; Protocol Last Admin: 11/20/24 08:40 Dose: 1 mg Documented By: MARE Calcium Carbonate (Calcium Carbonate 750 Mg Tab.Chew) 750 mg PO Q4H PRN PRN Reason: Heartburn Empagliflozin (Empagliflozin 25 Mg Tablet) 25 mg PO DAILY [facility] Last Admin: 11/20/24 09:00 Dose: 25 mg Documented By: MARE Enoxaparin Sodium (Enoxaparin Sodium 40 Mg/0.4 Ml Syringe) 40 mg SUBCUT Q24H [facility] Last Admin: 11/19/24 20:56 Dose: 40 mg Documented By: KARINA Famotidine (Famotidine 20 Mg Tablet) 20 mg PO BID [facility] Last Admin: 11/20/24 08:40 Dose: 20 mg Documented By: MARE Folic Acid (Folic Acid 1 Mg Tablet) 1 mg PO DAILY [facility] Last Admin: 11/20/24 08:40 Dose: 1 mg Documented By: MARE Thiamine HCl 200 mg/ Sodium (Chloride) 102 mls @ 204 mls/hr IV Q12H [facility] Last Infusion: 11/20/24 11:45 Dose: Infused Documented By: MARE Lactulose (Lactulose 20 Gm/30 Ml Solution) 20 gm PO TID [facility] Last Admin: 11/20/24 08:40 Dose: 20 gm Documented By: MARE Losartan Potassium (Losartan Potassium 25 Mg Tablet) 25 mg PO DAILY [facility]; Protocol Last Admin: 11/20/24 08:41 Dose: 25 mg Documented By: MARE Magnesium Hydroxide (Milk Of Magnesia 30 Ml Oral.Susp) 30 ml PO DAILY PRN PRN Reason: Constipation Melatonin (Melatonin 3 Mg Tablet) 6 mg PO BEDTIME PRN PRN Reason: Insomnia Last Admin: 11/17/24 22:28 Dose: 6 mg Documented By: KAYLIE Methadone HCl (Methadone Hcl 20 Mg/2 Ml Oral.Conc) 60 mg PO DAILY@0800 [facility] Last Admin: 11/20/24 08:39 Dose: 60 mg Documented By: MARE Co-signed By: SULMA Pharmacy Consult (Consult Rx Etoh Phenob Po Only) 1 each MISCELLANE ONCE PRN; Protocol PRN Reason: Consult order Prazosin HCl (Prazosin Hcl 1 Mg Capsule) 2 mg PO BEDTIME [facility]; Protocol Last Admin: 11/16/24 20:25 Dose: 2 mg Documented By: SALLY Senna (Sennosides 8.6 Mg Tablet) 17.2 mg PO BEDTIME [facility] Last Admin: 11/19/24 20:54 Dose: 17.2 mg Documented By: KARINA Sodium Chloride (0.9 % Sodium Chloride Flush 3 Ml Syringe) 3 ml IVFLUSH QSHIFT [facility] Last Admin: 11/20/24 08:49 Dose: 3 ml Documented By: MARE Spironolactone (Spironolactone 25 Mg Tablet) 25 mg PO BEDTIME [facility]; Protocol Last Admin: 11/19/24 20:55 Dose: 25 mg Documented By: KARINA Thiamine HCl (Thiamine Hcl 100 Mg Tablet) 100 mg PO DAILY [facility] Last Admin: 11/19/24 09:34 Dose: 100 mg Documented By: VINOD Vitamin D (Cholecalciferol (Vitamin D3) 25 Mcg Tablet) 100 mcg PO DAILY [facility] Last Admin: 11/20/24 08:40 Dose: 100 mcg Documented By: MARE Labs 11/16/24 21:53 11/20/24 07:17 Labs: Laboratory Results - last 24 hr 11/19/24 11/20/24 21:42 07:17 Anion Gap 8 L Estim Creat Clear Calc 66.4 Estimated GFR 52 POC Glucose 154 H Random Glucose 119 H Calcium 9.1 Assessment and Plan (1) Congestive heart failure: Status: Acute (2) Liver cirrhosis: Status: Acute (3) Encephalopathy: Status: Acute Plan 64-year-old male with a PMH significant for alcoholic liver cirrhosis, HFpEF, hx of cardiac arrest,?fau-evgzodf-nsteabvmg type 2 diabetes, asthma/COPD overlap syndrome on 2L home O2, polysubstance abuse including alcohol and heroin, who presents to the ED with?increased swelling in lower legs, thighs, and abdomen x3 weeks. acute toxic metabolic Encephalopathy may be multifactorial due to hepatic encephalopathy and possibly due to etoh withdrawal awake, alert but remains confused ammonia 52 but asterisks on exam, no BM yesterday; will increase dose of lactulose TSH wnl. b12/folate pending; brain CT pending Alcohol use disorder Drinks 4 beers and 5+ nips daily Ethyl alcohol level 172 at time of presentation Phenobarbital protocol initially started but was stopped due to oversedation CIWA remains low Addiction medicine following - receiving acamprosate scripts from [facility] which he will continue upon discharge. Continue thiamine, folic acid supplementation (empiric IV thiamine due to confusion) Acute HFpEF exacerbation Pt with SOB, ALONZO, anasarca, LLE, reported 40lb weight gain, elevated BNP secondary to medication noncompliance treated with IV lasix, BNP trending down, sob resolved. - nearly 9L resume baseline bumex resume spironolcatone Monitor I/O, BMP, daily weights Importance of medication compliance was discussed in detail with pt and significant other at bedside Asthma/COPD overlap syndrome Not in acute exacerbation. no wheezing on exam Pt chronically on 2 L home O2 Continue home inhalers HLD Statin Alcoholic liver cirrhosis with thrombocytopenia elevated LFTs, chronically elevated - trending down; no abdominal pain Continue lactulose no ascites Polysubstance use disorder addiction med following - Continue methadone DARRIAN cpap as needed and bedtime DVT prophylaxis with Lovenox Full code PT evaluation pending Quality Stroke Does the patient have a stroke diagnosis?: No VTE Prior VTE?: No VTE Risk Level:: Medical - moderate - high VTE Device Contraindication: Treatment Not Indicated VTE Drug Contraindication: N/A - Med Ordered
--- NOTE | 2024-11-20 13:07 | P.DS_ITS ---
DS: Providers Provider Date of Service: 11/20/24 Date of admission: 11/14/24 17:44 Date of discharge: 11/20/24 Primary care physician: Nelly Bach MD Consults: 11/14/24 19:08 Addiction Medicine Provider Routine Consulting Provider: Addiction Covering Reason for consultation: Alcohol use disorder DS: Diagnosis Discharge Diagnosis (1) Congestive heart failure: Status: Acute (2) Liver cirrhosis: Status: Acute (3) Encephalopathy: Status: Acute DS: Summary Hospital Course Hospital Course: admission hpi Chief Complaint: Leg and hand swelling Pt is a 64-year-old male with a PMH significant for alcoholic liver cirrhosis, HFpEF, hx of cardiac arrest,?tcv-xbvhtsn-wmnrgeaqe type 2 diabetes, asthma/COPD overlap syndrome on 2L home O2, polysubstance abuse including alcohol and heroin, who presents to the ED with?increased swelling in lower legs, thighs, and abdomen x3 weeks. Pt also has been experiencing increased SOB, ALONZO orthopnea, and difficulty walking. States he has gained around 40 lb in the past month. Pt most recently admitted to the hospital for CHF exacerbation in July of this year where furosemide was switched to bumetanide at time of discharge. Pt reports he takes his home medications ?sometimes? without further elaboration. Family at bedside seem to indicate pt rarely takes home medications. Presents today due to worsening symptoms and continued lower extremity discomfort and difficulty walking. Pt also has a long hx of substance abuse, including daily alcohol ingestion of 4 beers and 5+ nips daily. Denies hx of alcohol withdrawal. Denies increased anxiety, diaphoresis, headache, nausea, vomiting, or auditory/visual/tactile disturbances. Denies chest pain/pressure, palpitations. In the ED pt's vitals were stable and WNL, satting at 96% on 3L O2. Labs were significant for ethyl alcohol 172, ammonia 65, CRP 2.72, ESR 23, and BNP 1030, otherwise grossly unremarkable and around baseline for pt. No leukocytosis. Stable normocytic anemia of of 11.9/38.1. No significant electrolyte abnormalities. Renal function baseline. AST mildly elevated at 42, alk-phos 167, similar to prior. Tested negative for flu, COVID, RSV. CXR showed mild persistent interstitial prominence, slightly improved from prior. EKG demonstrated normal sinus rhythm without evidence of significant ST elevations or depressions. Pt was treated in the ED with bumetanide 2 mg IV. Pt is admitted to the hospital for treatment and further evaluation of CHF exacerbation likely secondary to medication noncompliance and in the setting of continued daily alcohol use. hospital 64-year-old male with a PMH significant for alcoholic liver cirrhosis, HFpEF, hx of cardiac arrest,?whz-icqzbti-lzlkpbyrq type 2 diabetes, asthma/COPD overlap syndrome on 2L home O2, polysubstance abuse including alcohol and heroin, who presents to the ED with?increased swelling in lower legs, thighs, and abdomen x3 weeks. acute toxic metabolic Encephalopathy may be multifactorial due to hepatic encephalopathy and possibly due to etoh withdrawal awake, alert but remains confused ammonia 52 but asterisks on exam, no BM yesterday; will increase dose of lactulose TSH wnl. b12/folate pending; brain CT pending Alcohol use disorder Drinks 4 beers and 5+ nips daily Ethyl alcohol level 172 at time of presentation Phenobarbital protocol initially started but was stopped due to oversedation CIWA remains low Addiction medicine following - receiving acamprosate scripts from [facility] which he will continue upon discharge. Continue thiamine, folic acid supplementation (empiric IV thiamine due to confusion) Acute HFpEF exacerbation Pt with SOB, ALONZO, anasarca, LLE, reported 40lb weight gain, elevated BNP secondary to medication noncompliance treated with IV lasix, BNP trending down, sob resolved. - nearly 9L resume baseline bumex resume spironolcatone Monitor I/O, BMP, daily weights Importance of medication compliance was discussed in detail with pt and significant other at bedside Asthma/COPD overlap syndrome Not in acute exacerbation. no wheezing on exam Pt chronically on 2 L home O2 Continue home inhalers HLD Statin Alcoholic liver cirrhosis with thrombocytopenia elevated LFTs, chronically elevated - trending down; no abdominal pain Continue lactulose no ascites Polysubstance use disorder addiction med following - Continue methadone DARRIAN cpap as needed and bedtime Time Attestation Discharge Coordination Time (in mins): 45 Quality: Safe Use of Opioids Does Pt have an Active Cancer Diagnosis on the Problem List?: No Quality: Stroke Does the patient have a stroke diagnosis?: No Physical Exam Vital Signs: Vital Signs: Last Vital Signs Temp 97.4 F 11/20/24 11:14 Pulse 57 11/20/24 11:14 Resp 20 11/20/24 11:14 BP 148/79 H 06/14/25 11:14 Pulse Ox 92 11/20/24 11:14 O2 Del Method Nasal Cannula 11/20/24 11:14 O2 Flow Rate 2 11/20/24 11:14 Oxygen Flow Rate 3 11/14/24 14:33 BMI result Body Mass Index 39.3 Const: General: cooperative, comfortable, no acute distress, alert and awake Nutritional Appearance: obese Orientation/consciousness: oriented to person and oriented to place Resp: Effort & Inspection: normal respiratory effort, able to speak in complete sentences, no respiratory distress and no use of accessory muscles Cardio: Other: difficult to assess JVD due to body habitus/neck Neuro: Other: + asterixis General: oriented to person, oriented to place, moves all extremities and CN's II-XI intact bilaterally Extrem: Other: trace leg edema DS: Data Data Completed and Pending Completed studies during hospitalization [Text1]: Procedures Assistance with Respiratory Ventilation, Less than 24 Consecutive Hours, Continuous Positive Airway Pressure (07/17/24) Detoxification Services for Substance Abuse Treatment (07/17/24) Insertion of Endotracheal Airway into Trachea, Via Natural or Artificial Opening (09/28/21) Insertion of Infusion Device into Superior Vena Cava, Percutaneous Approach (09/28/21) Insertion of Monitoring Device into Upper Artery, Percutaneous Approach (09/28/21) Introduction of Vasopressor into Peripheral Vein, Percutaneous Approach (09/28/21) Monitoring of Arterial Pressure, Peripheral, Percutaneous Approach (09/28/21) Monitoring of Arterial Pulse, Peripheral, Percutaneous Approach (09/28/21) Performance of Cardiac Output, Single, Manual (09/28/21) Respiratory Ventilation, Greater than 96 Consecutive Hours (09/28/21) Ultrasonography of Superior Vena Cava, Guidance (09/28/21) Labs on day of discharge: Laboratory Results - last 24 hr 11/19/24 11/20/24 21:42 07:17 Sodium 140 Potassium 4.0 Chloride 97 Carbon Dioxide 39 H Anion Gap 8 L BUN 29 H Creatinine 1.39 Estim Creat Clear Calc 66.4 Estimated GFR 52 POC Glucose 154 H Random Glucose 119 H Calcium 9.1 Discharge Plan Discharge Anticipated Discharge Date/Time: 11/20/24 13:14 Patient Disposition: Home Health Service Discharge Diagnosis: CHF Referrals: [facility] [Other] - 1 Week Referral Note: [facility] [Provider Group] - 1 Day Referral Note: continue to attend methadone appointments beginning the morning after discharge. Bring all unused home methadone doses, sealed, to first clinic visit. Nelly Bach MD [Primary Care Provider, Internal Medicine] - 1 Week Referral Note: continue to obtain Acamprosate with this doctor Discharge Medications: Continued cholecalciferol (vitamin D3) 50 mcg (2,000 unit) capsule 100 mcg PO DAILY Qty: 180 3RF rosuvastatin 40 mg tablet 40 mg PO BEDTIME Qty: 90 3RF acamprosate 333 mg Tablet,Delayed Release (Dr/Ec) 666 mg PO TID Qty: 180 0RF bumetanide 1 mg Tablet 1 mg PO DAILY Qty: 30 0RF Protocol: Hold for SBP< HOLD for SBP < : 90 prazosin 2 mg capsule 2 mg PO BEDTIME Combivent Respimat 20-100 mcg/actuation mist 1 puff INHALATION TID Rx Instructions: WHILE AWAKE folic acid 1 mg Tablet 1 mg PO DAILY Jardiance 25 mg tablet 25 mg PO DAILY sennosides [senna] 8.6 mg tablet 17.2 mg PO BEDTIME nystatin [Nyamyc] 100,000 unit/gram powder 1 appl topical BID diclofenac sodium 1 % gel 2 g topical BID PRN (Reason: pain) losartan 25 mg tablet 25 mg PO DAILY spironolactone 25 mg tablet 25 mg PO BEDTIME thiamine HCl (vitamin B1) 100 mg tablet 100 mg PO DAILY (DME) Oxygen Home Use Kit See Rx Instructions .Route Rx Instructions: As directed (DME) blood-glucose meter [FreeStyle [place] Lite] Kit See Rx Instructions Not Applicable BID Qty: 1 Rx Instructions: As directed (DME) FreeStyle Lite Strips Strip See Rx Instructions Not Applicable BID Qty: 10 Rx Instructions: As directed (DME) lancets [TRUEplus Lancets] 33 gauge misc See Rx Instructions Not Applicable BID Qty: 100 Rx Instructions: As directed methadone 10 mg/mL concentrate 60 mg PO DAILY Rx Instructions: [facility] (DME) CPAP Machine/Device Device See Rx Instructions .Route Rx Instructions: As directed Changed lactulose 10 gram/15 mL solution 20 ml PO TID Qty: 3000 0RF Discharge Orders: Discharge Order (Routine); Ordered 11/20/24 Ordered By: Christian Mlapah Diet: Advance to usual diet Activity on Discharge: As tolerated Stand Alone Forms: Patient Portal Discharge page Print Language: Senegalese Care Plan Goals: recovery from heart failure and encephalopathy Health Concerns: heart failure cirrhosis of liver encephalpathy Plan of Treatment: take all your medication as directedm, follow up with your doctor in a week do not drink more than 1200 ML of water day lactulose dose in increased to 30 ML 3 times a day Assessment: See abov Patient Instructions: Lactulose (By mouth) (Moni Ordonez, Blanca, Betty, Katia) Discharge Date/Time: 11/20/24 18:00
--- NOTE | 2024-11-20 14:22 | MHC.CM.PN ---
PT MEDICALLY CLEARED FOR DC HOME W/[facility] DAILY/METHADONE AND [facility]ICAL EDUCATION SPECIALIST HRS, PER [facility] PT'S WILL TRANSPORT.
--- NOTE | 2024-11-20 14:39 | W.MHC.F2F ---
Service Date Service Date: 11/20/24 Encounter Date of encounter: 11/20/24 Reasons for Services Signs and symptoms assessed: weakness, Reason for retirement: medication treatment and teach disease management Reason for physical therapy: therapeutic exercises, gait/transfer training and energy conservation Homebound: Leaving the home is medically contraindicated at this time without the asist of a device and/or another person due th the listed conditions above and below. Reason homebound: fall risk related to blood pressure changes and weakness related to hospital stay Homebound supporting statement: homebound due to chf, metabolic encephalopathy, deconditioned and therefore needs the assistance of another person Certification: Based on the above findings, I certify that this patient is confined to the home and needs intermittent retirement care, physical therapy and/or speech therapy, or continues to need occupational therapy. The patient is under my care, and I have initiated the establishment of the plan of care. The patient will be followed by a physician who will periodically review the plan of care. Time Spent With Patient Time: Total time managing care of this patient today ____ minutes.
== END 2024-11-20 18:00 | disposition home health service (06) | DRG 194 ==
LOC: HO.ED 17:39 → HO.EDOVER 18:06 → HO.IMC 19:42
PROVIDERS: Nurse Practitioner Acute Care; Physician Assistant Medical; Student in an Organized Health Care Education/Training Program; Admitting Provider Student in an Organized Health Care Education/Training Program; Emergency Provider Emergency Medicine; PCP Internal Medicine; Visit Provider Internal Medicine
DX: I13.0 Hypertensive heart and chronic kidney disease with heart failure and stage 1 through stage 4 chronic kidney disease, or unspecified chronic kidney disease (principal); G92.8 Other toxic encephalopathy; K76.82 Hepatic encephalopathy; K70.30 Alcoholic cirrhosis of liver without ascites; D69.59 Other secondary thrombocytopenia; Z99.81 Dependence on supplemental oxygen; E66.09 Other obesity due to excess calories; E78.5 Hyperlipidemia, unspecified; F10.229 Alcohol dependence with intoxication, unspecified; F11.20 Opioid dependence, uncomplicated; I50.33 Acute on chronic diastolic (congestive) heart failure; F19.10 Other psychoactive substance abuse, uncomplicated; J44.9 Chronic obstructive pulmonary disease, unspecified; F10.239 Alcohol dependence with withdrawal, unspecified; G47.33 Obstructive sleep apnea (adult) (pediatric); Y90.6 Blood alcohol level of 120-199 mg/100 ml; N18.30 Chronic kidney disease, stage 3 unspecified; Z68.39 Body mass index [BMI] 39.0-39.9, adult; Z20.822 Contact with and (suspected) exposure to COVID-19; Z91.148 Patient's other noncompliance with medication regimen for other reason; Z79.899 Other long term (current) drug therapy
CPT/HCPCS: 0241U; 36415; 70450; 71045; 76705; 80048; 80053; 80076; 80307; 82140; 82550; 82607; 82746; 82803; 82947; 83735; 83880; 84443; 84484; 85025; 85610; 85652; 86140; 93005; 94640; 94660; 97110; 97162; 97530; 99285; J1650; J1938; J1939; J2560; J3360; J3411; S9485

== ENCOUNTER → 2024-11-14 14:50 | Outpatient (BNV) | payer MEDICAID, SELFPAY | PROVIDERS: Admitting Provider Student in an Organized Health Care Education/Training Program; Emergency Provider Emergency Medicine; PCP Internal Medicine; Visit Provider Internal Medicine Cardiovascular Disease | DX: R06.02 Shortness of breath (principal) | CPT/HCPCS: 93010 ==

== ENCOUNTER → 2024-11-14 16:19 | Outpatient (BNV) | payer MEDICAID, SELFPAY | PROVIDERS: Emergency Provider Emergency Medicine; PCP Internal Medicine; Visit Provider Radiology Vascular & Interventional Radiology | DX: J84.9 Interstitial pulmonary disease, unspecified (principal) | CPT/HCPCS: 71045 ==

== ENCOUNTER 2024-11-14 17:44 | Outpatient (BNV) | payer MEDICAID, SELFPAY | END 2024-11-17 10:59 | PROVIDERS: Admitting Provider Student in an Organized Health Care Education/Training Program; Emergency Provider Emergency Medicine; PCP Internal Medicine; Visit Provider Radiology Diagnostic Radiology | DX: R18.8 Other ascites (principal) | CPT/HCPCS: 76705 ==

== ENCOUNTER 2024-11-14 17:44 | Outpatient (BNV) | payer MEDICAID, SELFPAY | END 2024-11-19 13:46 | PROVIDERS: Admitting Provider Student in an Organized Health Care Education/Training Program; Emergency Provider Emergency Medicine; PCP Internal Medicine; Visit Provider Radiology Diagnostic Radiology | DX: R41.0 Disorientation, unspecified (principal) | CPT/HCPCS: 70450 ==

== ENCOUNTER → 2024-11-14 17:44 | Outpatient (BNV) | payer MEDICAID, SELFPAY | PROVIDERS: Admitting Provider Student in an Organized Health Care Education/Training Program; Emergency Provider Emergency Medicine; PCP Internal Medicine; Visit Provider Nurse Practitioner Acute Care | DX: I50.9 Heart failure, unspecified (principal) | CPT/HCPCS: 99232; 99233 ==

== ENCOUNTER → 2024-11-14 17:44 | Outpatient (BNV) | payer OTHER, SELFPAY | PROVIDERS: Admitting Provider Student in an Organized Health Care Education/Training Program; Emergency Provider Emergency Medicine; PCP Internal Medicine; Visit Provider Nurse Practitioner Psychiatric/Mental Health | DX: F10.91 Alcohol use, unspecified, in remission (principal) | CPT/HCPCS: 99499 ==

== ENCOUNTER 2024-11-23 09:04 | Outpatient (AMB) | payer MEDICAID, SELFPAY ==
[2024-11-23 09:16] VITALS: BP 100/60; PULSE 62; BMI 37.2
--- NOTE | 2024-11-23 09:16 | MHC.OFFVIS ---
Vital Signs 11/23/24 09:16 Height 5 ft 7 in Weight 237 lb 10.533 oz BMI 37.2 BP 100/60 Blood Pressure Location Lt brachial Position Sitting Pulse 62 Pulse Source Monitor Intake Visit Reasons: 3 mth f/up KM Hydramatic Mechanic Required: Yes Hydramatic Mechanic Language: Intermodal Customer Service Services: Hydramatic Mechanic Present Hydramatic Mechanic Name: voice mclaughlin [id number] Swing Type Lathe Operator: Swing Type Lathe Operator Present Allergies aspirin [ASPIRIN] Allergy (Unknown, Verified 11/23/24 09:21) RASH ibuprofen Allergy (Unknown, Verified 11/23/24 09:21) nausea and vomiting Medication List - Last Reconciled 11/23/24 by JUDY Licona acamprosate 666 mg (2 x 333 mg) PO TID blood sugar diagnostic (FreeStyle Lite Strips) As directed blood-glucose meter (FreeStyle [place] Lite kit) As directed bumetanide 1 mg See Protocol PO DAILY cholecalciferol (vitamin D3) 100 mcg (2 x 50 mcg (2,000 unit)) PO DAILY CPAP (CPAP Machine/Device) As directed diclofenac sodium 1% 2 grams topical BID PRN empagliflozin (Jardiance) 25 mg PO DAILY folic acid 1 mg PO DAILY ipratropium-albuterol 20-100 mcg/actuation (Combivent Respimat) 1 puff inhalation TID lactulose 20 mL PO TID lancets (TRUEplus Lancets) As directed losartan 25 mg PO DAILY methadone 60 mg PO DAILY nystatin (Nyamyc) 1 appl topical BID Oxygen Home Use As directed prazosin 2 mg PO BEDTIME rosuvastatin 40 mg PO BEDTIME sennosides (senna) 17.2 mg PO BEDTIME spironolactone 25 mg PO BEDTIME thiamine HCl (vitamin B1) 100 mg PO DAILY HPI HPI 3 mth f/up KM: Details: Isael is a 64-year-old male presenting for management of Congestive Heart Failure. He has a history of cardiac arrest due to hyperkalemia-associated asystole and kidney injury on October 26, 2021. He also has hypertension, Type 2 Diabetes Mellitus, Obesity, Alcohol abuse, and Asthma/COPD overlap syndrome with oxygen dependency. Recently, he developed worsening dyspnea and gained 40 pounds prompting [facility] [place] Treated for CHF exacerbation, with diuresis of 9 liters of fluid. He was discharged on bumex 1 mg daily and continued on spironolactone and jardiance. He currently reports feeling good and breathing at his usual baseline. He occasionally coughs, sleeps with a large pillow which is his normal. He is currently pleased with how his legs are looking as the edema is much improved. He denies chest pains, palpitations or lightheadedness. He continues drink 1 alcoholic beverage per day, even though it causes some stomache discomfort. [facility] Medical History Chronic idiopathic constipation GERD (gastroesophageal reflux disease) Opioid use disorder Asthma-COPD overlap syndrome Morbid obesity Chronic hypoxic respiratory failure Restrictive lung disease Obesity hypoventilation syndrome DARRIAN treated with BiPAP Chronic respiratory failure Acute respiratory failure with hypoxia History of opiate therapy Morbid obesity due to excess calories CKD (chronic kidney disease) stage 3, GFR 30-59 ml/min Liver cirrhosis DARRIAN (obstructive sleep apnea) Chronic kidney disease Congestive heart failure Diabetes Surgical History No pertinent past surgical history Family History Mother Cancer Diabetes Social History Household Members: Unknown / Unable to assess Housing: House Do you presently have visiting nurse or other home services: Yes Alcohol intake: current Alcohol intake frequency: a few times a week Alcohol type: hard liquor Comment: 1:1 sitter at bedside for safety Patient Tobacco Use Status: Never used Tobacco e-Cigarette/Vaping Use: Never Used Substance Use Type: Heroin service: No Current occupational status: disabled Review of Systems Const All systems reviewed & are unremarkable except as noted in HPI and below ENT Denies dizziness Card Denies chest pain, Denies chest pain at rest, Denies chest pain with activity, Denies rapid heart rate, Denies pedal edema, Denies edema, Denies leg edema, Denies lightheadedness, Denies palpitations, Reports dyspnea, Reports dyspnea on exertion and Denies orthopnea Resp Details: wears O2 Denies cough, Reports dyspnea and Reports dyspnea on exertion GI Denies hematochezia and Denies change in stool character Musc Reports abnormal gait (uses walker), Denies limited range of motion, Denies muscle cramps, Denies muscle weakness, Denies numbness, Denies radiating pain into limb, Denies stiffness and Denies tingling Neuro Reports abnormal gait (uses walker), Denies dizziness, Denies numbness and Denies tingling Endo Denies palpitations Physical Exam Vital Signs: Last Vital Signs Pulse 62 11/23/24 09:16 BP 100/60 11/23/24 09:16 BMI result Body Mass Index 37.2 Const General: cooperative, healthy appearing, comfortable and no acute distress Orientation/consciousness: patient oriented x3 Neck Neck: Yes normal visual inspection Resp Other: lung sounds distant Effort & Inspection: normal respiratory effort Auscultation: clear to auscultation bilaterally, no rales, no rhonchi and no wheezes Cardio Other: heart tones distant Jugular venous distension: no JVD Rate: regular rate Rhythm: regular rhythm Heart sounds: no murmurs and no rubs Neuro General: patient oriented x3 Extrem Other: mild tight bilateral LE edema Psych Appearance: grossly normal Mental Status: mental status grossly normal Speech and movement: Normal speech and movement present Office Procedures EKG Details: Today, read by me, normal sinus rhythm, rate 62, QTC 448 millisecond [id number], Complete Assessment & Plan Assessment & Plan (1) Congestive heart failure: Code(s): I50.9 - Heart failure, unspecified Category: Medical Plan: History of diastolic heart failure with recent exacerbation treated with diuresis. He is now on Bumex, spironolactone, Jardiance. On exam today he does not appear grossly fluid overloaded though obesity makes this assessment more challenging. He does have some mild lower leg edema. Discussed signs and symptoms of heart failure with him. Recommended daily weight monitoring. Spent time reviewing fluid restriction, low-salt diet, current med management. Informed him that he can take an additional Bumex if needed for worsening symptoms however no more than 1 time per week. I gave him a pair of compression stockings from our office stock. Instructed on reduction in alcohol intake. Cardiology follow-up 4-6 weeks, sooner if needed to reassess status of Congestive heart failure. (2) Chronic diastolic heart failure: Code(s): I50.32 - Chronic diastolic (congestive) heart failure Category: Medical Plan: As above (3) Asthma-COPD overlap syndrome: Code(s): J44.89 - Other specified chronic obstructive pulmonary disease Category: Medical Plan: History of asthma/COPD overlap syndrome, oxygen dependent. Breathing seems unlabored at this time. Continue to follow with pulmonology. (4) Alcohol use disorder, severe, dependence: Code(s): F10.20 - Alcohol dependence, uncomplicated Category: Medical Plan: He currently admits to drinking 1 alcoholic beverage per day. This is a reduction from prior reports. Recommended full cessation. (5) Essential hypertension: Code(s): I10 - Essential (primary) hypertension Category: Medical Plan: Blood pressure goal less than 130/80. Current blood pressure low normal at 100/60, asymptomatic. No med changes made at this time. (6) Cardiac arrest: Code(s): I46.9 - Cardiac arrest, cause unspecified Category: Medical Plan: History of cardiac arrest with asystole 10/26/21 in the setting of hyperkalemia and ZANE. (7) Hospital discharge follow-up: Code(s): Z09 - Encounter for follow-up examination after completed treatment for conditions other than malignant neoplasm Category: Medical Plan: Discharge summary reviewed Plan Today, I discussed with the patient the management of his Congestive Heart Failure, primarily focusing on diuretics like Bumetanide and Spironolactone, fluid restriction, and sodium control. We reviewed the risks and benefits of adjusting diuretic use according to fluid retention status. I provided guidance on limiting alcohol consumption due to its impact on his heart condition. The patient was informed about using compression stockings and monitoring weight to assess fluid status. The need for follow-up to evaluate treatment effectiveness was emphasized, and consent was obtained for the outlined plan. Patient Instructions: - Take Bumex 1 mg daily and Spironolactone 25 mg daily, Jardiance as prescribed. - Limit fluid intake to six 8-ounce glasses per day. - Reduce sodium in your diet. - Monitor for increased swelling or weight gain, and take one extra Bumex if needed. - Wear compression stockings to help with leg swelling. - Limit alcohol to minimize heart and kidney strain. - Schedule a follow-up visit in one month to assess fluid balance and treatment response. Patient was informed and verbally consented to the use of an ambient scribe for clinic note documentation during this visit. Visit time spent on chart review, interview, assessment, orders, documentation. Coding Level of Care Code Est Pt Level 4 (65020) Complex EM visit Add On G2211 Diagnoses Congestive heart failure I50.9 Chronic diastolic heart failure I50.32 Asthma-COPD overlap syndrome J44.89 Alcohol use disorder, severe, dependence F10.20 Essential hypertension I10 Cardiac arrest I46.9 Hospital discharge follow-up Z09 CPT Codes EKG - CPT: 38511-[id number], Complete ([id number]) Time Spent (min) 32
--- OUTSIDE RECORDS SUMMARY | 2024-11-23 09:40 | XMS_ITS | Clinical Summary ---
Author Organization [facility] Address [address] [place] [address] Care Team Providers Care Jute Bag Sewer Name Role Phone Yair Crenshaw MD Primary Care Provider [phone] Source Comments PLEASE NOTE, if this patient [...] Cardiomegaly 07/21/2013 Chest pain syndrome 07/21/2013 Alcoholism ([facility]) 07/21/2013 Social History Tobacco Use Types [...] Plan of Treatment Not on file Insurance [facility] ([facility]) Member Subscriber Plan / Payer (Ef fective 2013-Present) Name:Isael Britton Relation to Subscriber:Self Name:Isael Britton Payer ID:[id number] Group ID:Not on file Type:Indemnimaryan Address: [address] [place], [place] [id number] Care Teams Jute Bag Sewer Relationship Specialty Start Date End Date Yair Crenshaw MD [address] [place] [address] PCP - General Internal Medicine 07/21/13
== END 2024-11-23 10:00 | disposition home or self-care (01) ==
LOC: HO.HCS 09:05
PROVIDERS: PCP Internal Medicine; Visit Provider Nurse Practitioner Family
DX: I50.9 Heart failure, unspecified (principal); I50.32 Chronic diastolic (congestive) heart failure; J44.89 Other specified chronic obstructive pulmonary disease; F10.20 Alcohol dependence, uncomplicated; I10 Essential (primary) hypertension; I46.9 Cardiac arrest, cause unspecified; Z09 Encounter for follow-up examination after completed treatment for conditions other than malignant neoplasm
CPT/HCPCS: 93010; 99214

== ENCOUNTER → 2024-11-23 09:04 | Outpatient (BNVA) | payer MEDICAID, SELFPAY | PROVIDERS: PCP Internal Medicine; Visit Provider Nurse Practitioner Family | DX: I50.9 Heart failure, unspecified (principal); I50.32 Chronic diastolic (congestive) heart failure; J44.89 Other specified chronic obstructive pulmonary disease; F10.20 Alcohol dependence, uncomplicated; I10 Essential (primary) hypertension; I46.9 Cardiac arrest, cause unspecified; Z09 Encounter for follow-up examination after completed treatment for conditions other than malignant neoplasm | CPT/HCPCS: 93005; 99212 ==

== ENCOUNTER 2025-01-21 12:21 | Outpatient (AMB) | payer MEDICAID, SELFPAY ==
--- OUTSIDE RECORDS SUMMARY | 2025-01-21 12:23 | XMS_ITS | Clinical Summary ---
Author Organization [facility] Facility Address [address] [address] Care Team Providers Care Proof Press Operator Name Role Phone Nelly Bach MD Primary Care Provider [phone] Allergies Active Allergy Reactions Criticality Noted Date [...] Visual Foot Exam 11/01/2021 Influenza Vaccine (#1) 2025 Hepatitis B Vaccine Aged Out No longe r eligible based on patient's age to complete this topic Insurance [place] Care Teams Proof Press Operator Relationship Specialty Start Date End Date Nelly Bach MD [address] [place] [address] PCP - General 06/19/20
--- OUTSIDE RECORDS SUMMARY | 2025-01-21 12:23 | XMS_ITS | Clinical Summary ---
Author Organization [facility] Address [address] [place] [address] Care Team Providers Care Glacing Machine Tender Name Role Phone Yair Crenshaw MD Primary Care Provider [phone] Source Comments PLEASE NOTE, if this patient [...] Cardiomegaly 07/21/2013 Chest pain syndrome 07/21/2013 Alcoholism ([facility]) 07/21/2013 Social History Tobacco Use Types [...] 60 07/21/2013 4:21 PM EST Temperature 36.9 C (98.4 F) 07/21/2013 4:21 PM EST Respiratory Rate 16 07/21/2013 4:21 PM EST Oxygen Saturation - - Inhaled Oxygen Concentration - - Weight - - Height - - Body Mass Index - - Plan of Treatment Not on file Insurance [facility] ([facility]) Member Subscriber Plan / Payer (Ef fective 2013-Present) Name:Isael Britton Relation to Subscriber:Self Name:Isael Britton Payer ID:[id number] Group ID:Not on file Type:Indemnimaryan Address: [address] [place] [id number] Care Teams Glacing Machine Tender Relationship Specialty Start Date End Date Yair Crenshaw MD [address] [place] [address] PCP - General Internal Medicine 07/21/13
--- OUTSIDE RECORDS SUMMARY | 2025-01-21 12:24 | XMS_ITS | Encounter Summary ---
Author Organization [facility] Address [address] [place] [phone] Phone Care Team Providers Care Drywall Applicator Name Role Phone Unknown, Unknown Primary Care Provider Leroy Ace MD Primary Care Provide r Encounter Details Date Type Department Care Team (Late st Contact Info) Description 01/03/2018 Procedure Pass [facility], Ct Scan - [address] [address] Social History Tobacco Use Types Packs/Day Years Used Date Smoking Tobacco: Former Smokeless Tobacco: Never Alcohol Use Standard Drinks/Week Comments Yes 0 (1 standard drink = 0.6 oz pure alcohol) 3 small bottles of coy, more whiskey daily Sex and Gender Information Value Date Recorded Sex Assigned at Male 01/03/2018 3:28 PM EDT Legal Sex Male 3:03 PM EDT Gender Identity Male 01/03/2018 3:28 PM EDT Sexual Orientation Not on file Occupation Industry Job Start Date Job End Date unemployed Not on file Not on file Not on file documented as of this encounter Plan of Treatment Not on file documented as of this encounter Visit Diagnoses Not on filedocumented in this encounter Care Teams Drywall Applicator Relationship Specialty Start Date End Date Unknown, Unknown, PCP - General 01/03/18 01/05/18 Leroy Bynum MD [address] [place] [address] PCP - General Internal Medicine 01/06/18 documented as of this encounter Additional Source Comments The information contained in this document represents components of the legal health record. It is not the complete legal health record.[facility]
[2025-01-21 13:23] VITALS: BP 150/72; PULSE 86; BMI 38.3
--- NOTE | 2025-01-21 13:23 | MHC.OFFVIS ---
Vital Signs 01/21/25 13:23 Height 5 ft 7 in Weight 244 lb 4.355 oz BMI 38.3 BP 150/72 H Blood Pressure Location Rt brachial Position Sitting Pulse 86 Pulse Source Pulse Oximeter Intake Visit Reasons: 6 wk f/up Bridge Crane Operator Required: Yes Bridge Crane Operator Language: Education Assistant Name: voice correa [id number] Manager Continuous Improvement: Manager Continuous Improvement Present Allergies aspirin (ASPIRIN) Allergy (Unknown, Verified 01/21/25 13:27) RASH ibuprofen Allergy (Unknown, Verified 01/21/25 13:27) nausea and vomiting Medication List - Last Reconciled 01/21/25 by JUDY Licona blood sugar diagnostic (FreeStyle Lite Strips) As directed blood-glucose meter (FreeStyle [place] Lite kit) As directed bumetanide 1 mg See Protocol PO DAILY cholecalciferol (vitamin D3) 100 mcg (2 x 50 mcg (2,000 unit)) PO DAILY CPAP (CPAP Machine/Device) As directed diclofenac sodium 1% 2 grams topical BID PRN empagliflozin (Jardiance) 25 mg PO DAILY folic acid 1 mg PO DAILY ipratropium-albuterol 20-100 mcg/actuation (Combivent Respimat) 1 puff inhalation TID lactulose 20 mL PO TID lancets (TRUEplus Lancets) As directed losartan 25 mg PO DAILY methadone 60 mg PO DAILY nystatin (Nyamyc) 1 appl topical BID omeprazole 40 mg PO DAILY Oxygen Home Use As directed rosuvastatin 40 mg PO BEDTIME sennosides (senna) 17.2 mg PO BEDTIME spironolactone 25 mg PO BEDTIME thiamine HCl (vitamin B1) 100 mg PO DAILY HPI HPI 6 wk f/up: Details: Isael is a 64-year-old male with past medical history of hypertension, diabetes, alcohol abuse, asthma/COPD overlap syndrome with oxygen dependency, Congestive heart failure, prior cardiac arrest in the setting of hyperkalemia and ZANE who presents for follow-up. Today he reports he has been doing well since his last visit in November. He has chronic shortness of breath but states his breathing has been stable. He wears his oxygen continually. No chest discomfort at rest or with activity. No heart palpitations, lightheadedness, presyncope, syncope. No PND, orthopnea. He does have bilateral leg edema which he says is unchanged. He admits to overeating and believes he has gained weight. He is mostly sedentary. Significant other present. Uses a pill pack for his medication and reports compliance. Does not follow a low-salt diet. Eats ramen noodles daily. He is drinking 2 beers daily. [facility] Medical History Congestive heart failure Chronic idiopathic constipation GERD (gastroesophageal reflux disease) Opioid use disorder Asthma-COPD overlap syndrome Morbid obesity Chronic hypoxic respiratory failure Restrictive lung disease Obesity hypoventilation syndrome DARRIAN treated with BiPAP Chronic respiratory failure Acute respiratory failure with hypoxia History of opiate therapy Morbid obesity due to excess calories CKD (chronic kidney disease) stage 3, GFR 30-59 ml/min Liver cirrhosis DARRIAN (obstructive sleep apnea) Chronic kidney disease Congestive heart failure Diabetes Surgical History No pertinent past surgical history Family History Mother Cancer Diabetes Social History Household Members: Unknown / Unable to assess Housing: House Do you presently have visiting nurse or other home services: Yes Alcohol intake: current Alcohol intake frequency: a few times a week Alcohol type: hard liquor Comment: 1:1 sitter at bedside for safety Patient Tobacco Use Status: Never used Tobacco e-Cigarette/Vaping Use: Never Used Substance Use Type: Heroin service: No Current occupational status: disabled Review of Systems Const All systems reviewed & are unremarkable except as noted in HPI and below ENT Denies dizziness Card Denies chest pain, Denies chest pain at rest, Denies chest pain with activity, Denies rapid heart rate, Reports pedal edema, Denies edema, Reports leg edema, Denies lightheadedness, Denies palpitations, Reports dyspnea, Reports dyspnea on exertion and Denies orthopnea Resp Denies cough, Reports dyspnea and Reports dyspnea on exertion GI Denies hematochezia and Denies change in stool character Musc Denies abnormal gait, Denies limited range of motion, Denies muscle cramps, Denies muscle weakness, Denies numbness, Denies radiating pain into limb, Denies stiffness and Denies tingling Neuro Denies abnormal gait, Denies dizziness, Denies numbness and Denies tingling Endo Denies palpitations Physical Exam Vital Signs: Last Vital Signs Pulse 86 01/21/25 13:23 BP 150/72 H 01/21/25 13:23 BMI result Body Mass Index 38.3 Const General: cooperative, healthy appearing, comfortable and no acute distress Orientation/consciousness: patient oriented x3 Neck Neck: Yes normal visual inspection Resp Other: lung sounds distant Effort & Inspection: normal respiratory effort Auscultation: clear to auscultation bilaterally, no rales, no rhonchi and no wheezes Cardio Other: heart tones distant Jugular venous distension: no JVD Rate: regular rate Rhythm: regular rhythm Heart sounds: no murmurs and no rubs Neuro General: patient oriented x3 Extrem Other: mild tight bilateral LE edema Psych Appearance: grossly normal Mental Status: mental status grossly normal Speech and movement: Normal speech and movement present Assessment & Plan Assessment & Plan (1) Congestive heart failure: Code(s): I50.9 - Heart failure, unspecified Category: Medical Plan: History of diastolic heart failure with [facility] admission with Congestive heart failure exacerbation, treated with diuresis. Echocardiogram 07/17/2024 showed EF 55-60%, mild LVH, grade 2 diastolic dysfunction. He is now on Bumex, spironolactone, Jardiance. On exam today he does not appear grossly fluid overloaded though obesity makes this assessment more challenging. He does have tight bilateral lower leg edema. Discussed signs and symptoms of heart failure with him. Discussed absolute need to cut back salt in his diet. Reviewed daily weight monitoring and the benefits of reducing his food intake and losing weight. Wear compression stockings during the day. Was given a pair from our [facility] last visit. Instructed on reduction in alcohol intake. His blood pressure is elevated so losartan dose will be increased to 50 mg daily. Continue same Bumex, Aldactone and Jardiance. Will use caution with med titration as he has history of ZANE and hyperkalemia with cardiac arrest. Cardiology follow-up 6 weeks, sooner if needed to reassess status of Congestive heart failure. (2) Chronic diastolic heart failure: Code(s): I50.32 - Chronic diastolic (congestive) heart failure Category: Medical Plan: As above (3) Asthma-COPD overlap syndrome: Code(s): J44.89 - Other specified chronic obstructive pulmonary disease Category: Medical Plan: History of asthma/COPD overlap syndrome, oxygen dependent. Breathing seems unlabored at this time. Continue to follow with pulmonology. (4) Alcohol use disorder, severe, dependence: Code(s): F10.20 - Alcohol dependence, uncomplicated Category: Medical Plan: He currently admits to drinking 2 alcoholic beverage per day. Recommended full cessation. (5) Essential hypertension: Code(s): I10 - Essential (primary) hypertension Category: Medical Plan: Blood pressure goal less than 130/80. Blood pressure elevated at 150/72, recheck done by me 158/82. Will be increasing losartan dose. Continue Aldactone, Bumex. (6) Cardiac arrest: Code(s): I46.9 - Cardiac arrest, cause unspecified Category: Medical Plan: History of cardiac arrest with asystole 10/26/21 in the setting of hyperkalemia and ZANE. Plan I discussed with the patient the importance of reducing salt intake to manage his hypertension and peripheral edema. We agreed to increase his losartan dosage to 50 mg and to monitor his blood pressure at home. I advised him to avoid high-salt foods and scheduled a follow-up in 4-6 wk to assess progress. Medications: New losartan dose increased add to next pill pack 50 mg PO DAILY 30 tabs 5RF Patient Instructions: - Reduce salt intake significantly. - Increase losartan dosage to 50 mg. - Monitor blood pressure daily at home. - Avoid high-salt foods, such as cup noodles. - Follow up in one month. Patient was informed and verbally consented to the use of an ambient scribe for clinic note documentation during this visit. Visit time spent on chart review, interview, assessment, orders, documentation. Coding Level of Care Code Est Pt Level 4 (01012) Complex EM visit Add On G2211 Diagnoses Congestive heart failure I50.9 Chronic diastolic heart failure I50.32 Asthma-COPD overlap syndrome J44.89 Alcohol use disorder, severe, dependence F10.20 Essential hypertension I10 Cardiac arrest I46.9 Time Spent (min) 28
== END 2025-01-21 13:55 | disposition home or self-care (01) ==
PROVIDERS: PCP Internal Medicine; Visit Provider Nurse Practitioner Family
DX: I50.9 Heart failure, unspecified (principal); I50.32 Chronic diastolic (congestive) heart failure; J44.89 Other specified chronic obstructive pulmonary disease; F10.20 Alcohol dependence, uncomplicated; I10 Essential (primary) hypertension; I46.9 Cardiac arrest, cause unspecified
CPT/HCPCS: 99214

== ENCOUNTER → 2025-01-21 12:21 | Outpatient (BNVA) | payer MEDICAID, SELFPAY | PROVIDERS: PCP Internal Medicine; Visit Provider Nurse Practitioner Family | DX: I50.32 Chronic diastolic (congestive) heart failure (principal); J44.89 Other specified chronic obstructive pulmonary disease; F10.20 Alcohol dependence, uncomplicated; I10 Essential (primary) hypertension; I46.9 Cardiac arrest, cause unspecified | CPT/HCPCS: 99212 ==

== ENCOUNTER 2025-01-31 11:19 | Outpatient (AMB) | payer MEDICAID, SELFPAY ==
--- NOTE | 2025-01-31 11:23 | A.OFFVIS_ITS ---
Vital Signs 01/31/25 11:31 Height 5 ft 7 in Weight 244 lb BMI 38.2 BP 128/70 Blood Pressure Location Rt brachial Position Sitting Pulse 78 Pulse Source Pulse Oximeter Pulse Oximetry (%) 93 Oxygen Delivery Method Nasal Cannula Oxygen Flow Rate 2 Intake Visit Reasons: Cirrhosis of liver Intake Note: Est pt for mgmt of GERD + cirrhosis. All labs done. CC: Pt denies any GI changes or new sx since last visit. Equipment Technician Required: Yes Equipment Technician Services: Equipment Technician Present Equipment Technician Name: Philip [id number] Information Interpreted: clinical only Accompanied by: Other Relationship Allergies aspirin (ASPIRIN) Allergy (Unknown, Verified 01/31/25 11:24) RASH ibuprofen Allergy (Unknown, Verified 01/31/25 11:24) nausea and vomiting HPI HPI Cirrhosis of liver: Details: LAST VISIT Alcohol use disorder, severe, dependence Polysubstance abuse Liver cirrhosis GERD (gastroesophageal reflux disease) Chronic idiopathic constipation Postprandial abdominal bloating Plan CT scan to check for any abdominal hernia. On exam unable to distinguish if there is a hernia or not as patient's abdomen is very tight and large. No tenderness on exam. Decreased bowel sounds. Script for lactulose to be taken twice a day continue with senna. Patient is on methadone and is more constipated than usual. Workup for any autoimmune disorders that might be causing transaminitis although patient does admit that he has been drinking every day. Last night he had a hole L of Bacardi rum. Will check hep C viral load. Patient admits to using drugs last year, however patient denies injecting. Patient states that he was snorting heroin. Long discussion with patient and his significant other about stopping alcohol and following up with provider at addiction medicine. He used to see Shania Martino and has not followed up with her for some time. He will follow-up in our office in 4 weeks. Patient was encouraged to go to ED if he will become short of breath, increased edema in his feet, chest pain, upper or lower GI bleed symptoms for becomes jaundice. Both patient and his significant other are agreeable to plan of care and verbalizes understanding of instructions. They were given the opportunity to ask questions and all questions answered. ? Thank you for allowing me to participate in his care Orders Ceruloplasmin Today R79.89 Hepatitis C Viral Load Today Z86.19 Smooth Muscle Antibody Today R79.89 IRON PROFILE Today D64.9 Liver Fibrosis Pnl Today K76.0 Erythrocyte Sedimentation Rate Today R79.89 Liver Kidney Microsomal Ab Today Z86.19 Mitochondrial Antibody Today R79.89 Ferritin Today R74.8 Vitamin D 25-OH (D2 and D3) Today E55.9 Magnesium Today N18.9 Lipid Panel Today I25.10 Liver Panel Today R74.01 Alpha Fetoprotein Today R79.89 C Reactive Protein Today K58.9 Transglutaminase IgA Today R10.9 Complete Blood Count no Diff Today K21.9 Comprehensive Met. Panel Today K21.9 Lipase Today R10.9 TSH reflex Free T4 Today K59.00 Vitamin B12 and Folate Today R19.7 Gamma Glutamyl Transpeptidase Today R74.8 CT abdomen pelvis w IV con Today K43.9, K74.60, M62.08, R10.9 New lactulose 20 grams (30 mL) PO BID 473 mL 2RF K59.09 TODAY'S VISIT Patient is here today for follow-up. Patient was admitted in November for shortness of breath and edema. Chronic EtOH use. P admits that he drinks 2 beer and 2 nips of hard liquor a day. Patient reports that he is no longer smoking. Patient denies using any drugs other than his prescribed medications. Patient is on continues oxygen. Sees cardiology and pulmonology. Discussed with patient lab results as well as CT scan results. Patient denies melena, hematochezia, unintentional weight loss or ribbon like stools. Patient denies any dyspepsia, dysphagia or odynophagia. Denies melena, hematochezia, unintentional weight loss or ribbon like stools. Patient denies any acid reflux on omeprazole. Reports that he is moving his bowels well. However he is taking lactulose twice daily. He reports that his stools are mostly soft. Sometimes 3-4 bowel movements a day. Patient denies feeling constipated. He feels like he empties his bowels [facility] Medical History Congestive heart failure Chronic idiopathic constipation GERD (gastroesophageal reflux disease) Opioid use disorder Asthma-COPD overlap syndrome Morbid obesity Chronic hypoxic respiratory failure Restrictive lung disease Obesity hypoventilation syndrome DARRIAN treated with BiPAP Chronic respiratory failure Acute respiratory failure with hypoxia History of opiate therapy Morbid obesity due to excess calories CKD (chronic kidney disease) stage 3, GFR 30-59 ml/min Liver cirrhosis DARRIAN (obstructive sleep apnea) Chronic kidney disease Congestive heart failure Diabetes Surgical History No pertinent past surgical history Family History Mother Cancer Diabetes Social History Household Members: Unknown / Unable to assess Housing: House Do you presently have visiting nurse or other home services: Yes Alcohol intake: current Alcohol intake frequency: a few times a week Alcohol type: hard liquor Comment: 1:1 sitter at bedside for safety Patient Tobacco Use Status: Never used Tobacco e-Cigarette/Vaping Use: Never Used Substance Use Type: Heroin service: No Current occupational status: disabled Review of Systems Const Denies weight gain and Denies weight loss ENT Reports no additional complaints, Denies dysphagia and Denies odynophagia Card Reports no additional complaints Resp Reports no additional complaints GI Denies abdominal pain, Denies belching, Denies melena, Denies bloating, Denies change in bowel habits, Denies dysphagia, Denies excessive flatus, Denies dyspepsia, Denies heartburn, Denies diarrhea, Denies loose stools, Denies nausea, Denies odynophagia and Denies vomiting Reports no additional complaints Musc Reports no additional complaints Neuro Reports no additional complaints Psych Reports no additional complaints Endo Reports no additional complaints Physical Exam Vital Signs: Last Vital Signs Pulse 78 01/31/25 11:31 BP 128/70 01/31/25 11:31 Pulse Ox 93 01/31/25 11:31 Oxygen Delivery Method Nasal Cannula 01/31/25 11:31 Oxygen Flow Rate 2 01/31/25 11:31 BMI result Body Mass Index 38.2 Const General: no acute distress Nutritional Appearance: obese Orientation/consciousness: patient oriented x3 Resp Effort & Inspection: normal respiratory effort, able to speak in complete sentences, no tracheal deviation and symmetric chest movement Auscultation: clear to auscultation bilaterally Cardio Rate: regular rate GI Inspection: Yes normal to inspection and Yes distended Palpation (GI): Soft to palpation, Firmness to palpation present (GI), nontender and No hepatosplenomegaly present Auscultation: normal bowel sounds General: Yes no CVA tenderness Back/Spine/Pelvis Back: no CVA tenderness Skin General skin exam: elasticity normal, turgor normal and dry skin Neuro General: patient oriented x3 Psych Appearance: grossly normal Mental Status: mental status grossly normal Results Reviewed Results Reviewed: Laboratory Tests 05/28/24 14:12 Magnesium 2.1 Iron 46 Ferritin 175 Total Bilirubin 0.7 Direct Bilirubin 0.3 AST 36 ALT 37 Alkaline Phosphatase 148 H Liver Fibrosis Stage F1 25-OH Vitamin D Total [address] SCAN OF ABDOMEN AND PELVIS JUNE OF 2024 FINDINGS: Cardiomegaly. Aortic annular calcifications. Hepatic steatosis. Nodular hepatic contour. Cholelithiasis present. Noncontrast appearance of the spleen, pancreas and adrenal glands are unremarkable. Small splenule present. No renal or ureteral calculus. No hydronephrosis. Oral contrast has progressed into the proximal transverse colon. No bowel obstruction. Normal appendix. No mesenteric or retroperitoneal lymphadenopathy. Mild aortoiliac atherosclerotic vascular calcifications. Normal appearance of the urinary bladder. No inguinal lymphadenopathy. Small fat containing umbilical hernia. Mild spondylosis. No acute fracture or suspicious bone lesion. IMPRESSION: 1. No cause for patient's symptoms identified. No evidence of appendicitis. No bowel obstruction. No evidence of renal obstruction. 2. Cirrhotic hepatic morphology with hepatic steatosis. Assessment & Plan Assessment & Plan (1) GERD (gastroesophageal reflux disease): Code(s): K21.9 - Gastro-esophageal reflux disease without esophagitis Category: Medical Qualifiers: Esophagitis presence: esophagitis presence not specified Qualified Code(s): K21.9 - Gastro-esophageal reflux disease without esophagitis (2) Alcoholic hepatitis: Code(s): K70.10 - Alcoholic hepatitis without ascites Category: Medical Qualifiers: Ascites presence: with ascites Qualified Code(s): K70.11 - Alcoholic hepatitis with ascites (3) Chronic idiopathic constipation: Code(s): K59.04 - Chronic idiopathic constipation Category: Medical (4) Liver cirrhosis: Code(s): K74.60 - Unspecified cirrhosis of liver Category: Medical Qualifiers: Hepatic cirrhosis type: alcoholic cirrhosis Ascites presence: without ascites Qualified Code(s): K70.30 - Alcoholic cirrhosis of liver without ascites (5) Alcohol use disorder, severe, dependence: Code(s): F10.20 - Alcohol dependence, uncomplicated Category: Medical (6) Postprandial abdominal bloating: Code(s): R14.0 - Abdominal distension (gaseous) Plan Patient will continue taking omeprazole daily. Avoid dietary triggers and late night snacking. Patient was encouraged to stop drinking alcohol. Low-fat, low- salt, low carb and high-protein diet recommended. Will check liver fibrosis, lipase, liver panel. Patient was encouraged to take Citrucel daily to help him bulk stool. Continue lactulose. Will send Cologuard and if positive will ask for risk stratification from Cardiology and from pulmonology before sending him for procedure. Patient will follow-up in 6 months, sooner on as needed basis. He is agreeable to this plan and verbalizes understanding of instructions. He was given the opportunity to ask questions and all questions answered. Thank you for allowing me to participate in his care Orders: Orders Liver Fibrosis Pnl Today K76.0 - Fatty (change of) liver, not elsewhere classified US abdomen comp w elastography Today R79.89 - Other specified abnormal findings of blood chemistry Lipase Today R10.9 - Unspecified abdominal pain Liver Panel Today R74.01 - Elevation of levels of liver transaminase levels Medications: New methylcellulose (laxative) (Citrucel) take it with full glass of water 500 mg PO DAILY 90 tabs 2RF K59.00 - Constipation, unspecified Coding Level of Care Code Est Pt Level 4 (23214) Complex EM visit Add On G2211 Diagnoses Gastroesophageal reflux disease, unspecified whether esophagitis present K21.9 Esophagitis presence: esophagitis presence not specified Alcoholic hepatitis with ascites K70.11 Ascites presence: with ascites Chronic idiopathic constipation K59.04 Alcoholic cirrhosis of liver without ascites K70.30 Hepatic cirrhosis type: alcoholic cirrhosis Ascites presence: without ascites Alcohol use disorder, severe, dependence F10.20 Postprandial abdominal bloating R14.0 Time Spent (min) 40 Comment 25 minutes spent with patient and additional 15 minutes spent reviewing his records
[2025-01-31 11:31] VITALS: BP 128/70; PULSE 78; O2SAT 93; BMI 38.2
--- OUTSIDE RECORDS SUMMARY | 2025-01-31 12:45 | XMS_ITS | Clinical Summary ---
Author Organization [facility] Address [address] [place] [address] Care Team Providers Care Procurement Specialist Name Role Phone Yair Crenshaw MD Primary [...] Cardiomegaly 07/21/2013 Chest pain syndrome 07/21/2013 Alcoholism ([facility]) 07/21/2013 Social History Tobacco Use Types [...] of Treatment Not on file Insurance [employer] ([facility]) Member Subscriber Plan / Payer (Ef fective 2013-Present) Name:Isael Britton Relation to Subscriber:Self Name:Iseal Britton Payer ID:[id number] Group ID:Not on file Type:Indemnimaryan Address: [address] [place] [id number] Care Teams Procurement Specialist Relationship Specialty Start Date End Date Yair Crenshaw MD [address] [place] [address] PCP - General Internal Medicine 07/21/13
--- OUTSIDE RECORDS SUMMARY | 2025-01-31 12:45 | XMS_ITS | Clinical Summary ---
Author Organization [facility] Facility Address [address] [address] Care Team Providers Care Log Hooker Name Role Phone Nelly Bach MD Primary Care Provider + [phone] Allergies Active Allergy Reactions Criticality Noted Date [...] Insurance Medicaid [place] Care Teams Log Hooker Relationship Specialty Start Date End Date Nelly Bach MD [address] [place] [address] PCP - General 06/19/20
--- OUTSIDE RECORDS SUMMARY | 2025-01-31 12:45 | XMS_ITS | Encounter Summary ---
Author Organization [facility] Address [address] [place] [phone] Phone Care Team Providers Care Car Body Inspector Name Role Phone Unknown, Unknown Primary Care Provider Leroy Ace MD Primary Care Provide r Encounter Details Date Type Department Care Team (Late st Contact Info) Description 01/03/2018 Procedure Pass [facility], Ct Scan - [address] [address] Social History Tobacco Use Types Packs/Day Years [...] on filedocumented in this encounter Care Teams Car Body Inspector Relationship Specialty Start Date End Date Unknown, Unknown, PCP - General 01/03/18 01/05/18 Leroy Bynum MD [address] [place] [address] PCP - General Internal Medicine 01/06/18 documented as of this encounter Additional Source Comments The information contained in this document represents components of the legal health record. It is not the complete legal health record.[facility]
== END 2025-01-31 11:51 | disposition home or self-care (01) ==
LOC: HO.HGI 11:19
PROVIDERS: PCP Internal Medicine; Visit Provider Nurse Practitioner Family
DX: K21.9 Gastro-esophageal reflux disease without esophagitis (principal); K70.11 Alcoholic hepatitis with ascites; K59.04 Chronic idiopathic constipation; K70.30 Alcoholic cirrhosis of liver without ascites; F10.20 Alcohol dependence, uncomplicated; R14.0 Abdominal distension (gaseous)
CPT/HCPCS: 99214

== ENCOUNTER → 2025-01-31 11:19 | Outpatient (BNVA) | payer MEDICAID, SELFPAY | PROVIDERS: PCP Internal Medicine; Visit Provider Nurse Practitioner Family | DX: K21.9 Gastro-esophageal reflux disease without esophagitis (principal); K70.11 Alcoholic hepatitis with ascites; K70.30 Alcoholic cirrhosis of liver without ascites; F10.20 Alcohol dependence, uncomplicated; R14.0 Abdominal distension (gaseous) | CPT/HCPCS: 99212 ==

== ENCOUNTER 2025-03-11 13:47 | Outpatient (AMB) | payer MEDICAID, SELFPAY ==
--- OUTSIDE RECORDS SUMMARY | 2025-03-11 13:58 | XMS_ITS | Clinical Summary ---
Author Organization [facility] Address [address] [place] [address] Care Team Providers Care Position Classification Manager Name Role Phone Yair Crenshaw MD Primary Care Provider [phone] Source Comments PLEASE NOTE, if this patient [...] Cardiomegaly 07/21/2013 Chest pain syndrome 07/21/2013 Alcoholism 07/21/2013 Social History Tobacco Use Types Packs/Day [...] Plan of Treatment Not on file Insurance [facility] ([facility]) Member Subscriber Plan / Payer (Ef fective 2013-Present) Name:Isael Britton Relation to Subscriber:Self Name:Isael Britton Payer ID:[id number] Group ID:Not on file Type:Indemnity Address: [address] [place] [id number] Care Teams Position Classification Manager Relationship Specialty Start Date End Date Yair Crenshaw MD [address] [place] [address] PCP - General Internal Medicine 07/21/13
--- OUTSIDE RECORDS SUMMARY | 2025-03-11 13:58 | XMS_ITS | Clinical Summary ---
Author Organization [facility] Facility Address [address] [address] Care Team Providers Care Risk Assessor Name Role Phone Nelly Bach MD Primary Care Provider + [phone] Allergies Active Allergy Reactions Criticality Noted Date [...] Insurance [place] Care Teams Risk Assessor Relationship Specialty Start Date End Date Nelly Bach MD [address] [place] [id number] PCP - General 06/19/20
--- OUTSIDE RECORDS SUMMARY | 2025-03-11 13:58 | XMS_ITS | Clinical Summary ---
Author Organization [facility] Address [address] [place] [phone] Phone Care Team Providers Care Fabric Inspector Name Role Phone Leroy Bynum MD Primary Care Provide r Allergies No known active allergies Medications amLODIPine (NORVASC) 5 MG tablet Take 1 tablet (5 mg total) by mouth daily. 30 tablet 01/07/2018 Active carvedilol (COREG) 3.125 MG tablet Take 1 tablet (3.125 mg total) by mouth 2 (two) times a day with meals. 60 tablet 01/06/2018 Active lisinopril (PRINIVIL,ZESTRI L) 20 MG tablet Take 1 tablet (20 mg total) by mouth daily. 30 tablet 01/07/2018 Active furosemide (LASIX) 40 MG tablet Take 1 tablet (40 mg total) by mouth daily. 30 tablet 01/07/2018 Active metFORMIN (GLUCOPHAGE) 500 MG tablet Take 1 tablet (500 mg total) by mouth daily with breakfast. 30 tablet 01/06/2018 Active thiamine (VITAMIN B-1) 100 mg Tab tablet Take 1 tablet (100 mg total) by mouth daily. 30 tablet 01/07/2018 Active potassium chloride SA (K-DUR,KLOR-CON) 10 MEQ ER tablet Take 1 tablet (10 mEq total) by mouth 2 (two) times a day. 30 tablet 01/06/2018 Active Active Problems Problem Noted Date Diagnosed Date Hilar lymphadenopathy 01/05/2018 Assessment & Plan (01/06/2018 10:13 AM EDT): This is of unclear etiology. The degree of mediastinal and hilar lymphadenopathy is quite extensive, measuring up to 2.4 cm. There is also, to a milder degree, abdominal l lymphadenopathy suggesting a possible systemic process. The differential diagnosis would include entities such as sarcoidosis, lymphoma, or infections. Given the disseminated nature and size of his lymphadenopathy, I doubt heart failure is the sole culprit. Therefore, I would not recommend biopsy, which preferably would be performed either via EBUS or mediastinoscopy in order to obtain adequate tissue sampling and architecture. This was discussed with Dr. Kirkland, and I have a call out to Dr. Germain of thoracic surgery to help facilitate scheduling an outpatient appointment for further evaluation in that context. Given the absence of B symptoms and significant improvement in his dyspnea with diuresis as well as resolution of his hypoxemia, I do not believe biopsy his hospital stay needs to be prolonged for the sole purpose of obtaining such a biopsy. If the biopsy reveals noncaseating granulomas consistent with sarcoidosis, I would be happy to see him in our outpatient pulmonary office to initiate further workup, evaluate for possible extra-pulmonary involvement, and pursue baseline pulmonary function testing. His negative HIV is reassuring. Further laboratory testing could be performed as an outpatient, pending biopsy results. Assessment & Plan (01/05/2018 5:11 PM EDT): - CTA showed mediastinal and hilar lymphadenopathy - etiology unclear - will ask for pulm consult Chest pain on breathing 01/04/2018 Assessment & Plan (01/05/2018 5:10 PM EDT): Patient presented with pruritic chest pain for past week. - CTA negative for PE, troponins negative, chest pain seems improved Acute diastolic heart failure 01/03/2018 Assessment & Plan (01/05/2018 5:05 PM EDT): - echo nl EF, mild MR, moderate diastolic dysfunction, severe pulm htn - cont IV diuresis, close monitoring of renal function and electrolytes - appears is down 9 lbs - decreased beta phillip dose b/c bradycardia, lisinopril increased as per Dr. Benton's recs Hypertension 01/03/2018 Assessment & Plan (01/05/2018 5:06 PM EDT): - cont nitro paste for now - decreased beta phillip, increased JAIRO, still on IV diuretic Alcohol abuse 01/03/2018 Assessment & Plan (01/04/2018 2:27 AM EDT): At risk for withdrawal given reported history; phenobarb protocol at 10 mg/kg with level in a.m. No benzos while on phenobarb. Continue CIWA scoring. Thiamine, folic acid, MVI. No overt s+s of ETOH wd at this time. Assessment & Plan (01/05/2018 5:07 PM EDT): - cont phenobarb protocol for acute withdrawal, symptoms and WERNER scores seem controlled Scores 2 in am 0 in afternoon Heroin abuse 01/03/2018 Assessment & Plan (01/05/2018 5:08 PM EDT): - cont monitoring for symptoms of withdrawal - is using IV morphine only minimally Diabetes 01/03/2018 Assessment & Plan (01/05/2018 5:10 PM EDT): - increase insulin sliding scale - consider metformin as outpatient (holding inpatient due to IV contrast). Family History Medical History Relation Comments Coronary artery disease Father Lung disease Neg Hx Relation Status Comments Brother 1 Alive Brother 2 Alive Brother 3 Alive Brother 4 Alive Father Sister Alive Social History Tobacco Use Types Packs/Day Years Used Date Smoking Tobacco: Former Smokeless Tobacco: Never Alcohol Use Standard Drinks/Week Comments Yes 0 (1 standard drink = 0.6 oz pure alcohol) 3 small bottles of coy, more whiskey daily Education Answer Date Recorded Are you interested in more education? Not on louise e 10/04/2022 Are you concerned about learning? Not on file 10/04/2022 No 10/04/2022 No 10/04/2022 Digital Access Answer Date Recorded No 11/02/2022 No 11/02/2022 No 11/02/2022 Reliable internet access at home? Not on file 11/02/2022 Device with a working camera? Not on file Sex and Gender Information Value Date Recorded Sex Assigned at Male 01/03/2018 3:28 PM EDT Legal Sex Male 3:03 PM EDT Gender Identity Male 01/03/2018 3:28 PM EDT Sexual Orientation Not on file Occupation Industry Job Start Date Job End Date unemployed Not on file Not on file Not on file Last Filed Vital Signs Vital Sign Reading Time Taken Comments Blood Pressure 165/101 01/06/2018 11:27 AM EDT Pulse 70 01/06/2018 11:27 AM EDT Temperature 36.8 C (98.2 F) 01/06/2018 11:27 AM EDT Respiratory Rate 16 01/06/2018 11:2 7 AM EDT Oxygen Saturation 92% 01/06/2018 11: 27 AM EDT Inhaled Oxygen Concentration - - Weight 92.4 kg (203 lb 12.8 oz) 01/06/2018 6:00 AM EDT Height 165.1 cm (5' 5 ) 01/03/2018 3:27 PM EDT Body Mass Index 33.91 01/03/2018 3:27 PM EDT Plan of Treatment Health Maintenance Due Date Last Done Comments Adult Td,Tdap Booster 1962 BLOOD PRESSURE 1962 DEPRESSION SCREENING 1974 SMOKING Hx and SMOKELESS TOBACCO SCREENING 1975 LIPID PANEL 1980 PNEUMOCOCCAL VACCINES (50+ years) (1 of 2 - PCV) 1981 COLOGUARD 2007 COLONOSCOPY 2007 COLORECTAL CANCER SCREENING 2007 FIT TEST 2007 FOBT 2007 SIGMOIDOSCOPY 2007 VIRTUAL COLONOSCOPY 2007 ZOSTER VACCINES (1 of 2) 2012 DIABETIC EYE EXAM 01/03/2018 CREATININE LEVEL 01/06/2019 01/06/2018, , 01/04/2018, Additional history exists POTASSIUM LEVEL 01/06/2019 01/06/2018, 12/09, 01/04/2018, Additional history exists RSV VACCINE (1 - Risk 60-74 years 1-dose series) 2022 HEMOGLOBIN A1C 09/02/2023 03/04/2023, 08/08, 05/24/2022 INFLUENZA VACCINE (#1) 2025 0, 06/15/2019, 07/16/2014 COVID-19 VACCINE (3 - 2024- season) 2025 09/30/2020, 09/09/2020 HEPATITIS C SCREENING Completed 01/04/2018 HIV ONE-TIME SCREENING (18-65 YEARS) Completed 01/04/2018 HIB VACCINES Aged Out No longer eligi ble based on patient's age to complete this topic MENINGOCOCCAL VACCINES (ACWY) Aged Out No longer eligible based on patient's age to complete this topic MENINGOCOCCAL VACCINES (B) Aged Out N o longer eligible based on patient's age to complete this topic Medical Devices Not on file Procedures Procedure Name Priority Date/Time Associated Diagnosis Comments COMPREHENSIVE METABOLIC PANEL Routine 01/06/2018 5:00 AM EDT HEPATITIS C ANTIBODY, QUALITATIVE Routine 01/04/2018 3:08 PM EDT from Last 3 Months or Most Recently Relevant to Health Maintenance Results * (ABNORMAL) Comprehensive metabolic panel (01/06/2018 5:00 AM EDT) SODIUM 134 133 - 146 mmol/L [facility] POTASSIUM 3.2(L) 3.3 - 5.1 mmol/L [facility] CHLORIDE 87(L) 96 - 108 mmol/L [facility] CO2 33 21 - 35 mmol/L [facility] BUN 16 6 - 19 mg/dL [facility] CREATININE 0.80 0.5 - 1.5 mg/dL [facility] GLUCOSE 150(H) 70 - 99 mg/dL [facility] ALBUMIN 3.6(L) 3.9 - 4.8 g/dL [facility] TOTAL PROTEIN 9.2(H) 6.5 - 8.0 g/dL [facility] CALCIUM 9.8 8.4 - 10.3 mg/dL [facility] ALKALINE PHOSPHATASE 146(H) 39 - 117 U/L [facility] TOTAL BILIRUBIN 2.0(H) 0.0 - 1.2 mg/dL [facility] AST 30 0 - 37 U/L [facility] ALT 16 0 - 40 U/L [facility] GLOBULIN 5.6(H) 1 - 4.8 g/dL [facility] EGFR 101 >59 mL/min/1.7 3m2 [facility] Comment:If patient is black, multiply result by 1.159. Estimated glomerular filtration rate calculated using the CKD-EPI equation. ANION GAP 17 10 - 20 mmol/L [facility] Blood 01/06/2018 5:00 AM EDT 01/06/2018 5:40 AM EDT us Arlene Kirkland MD LAB BLOOD ORDERABLES Final Result Performing Organization Address City/[facility]/ZIP Co de Phone Number [address] [phone] * Hepatitis C antibody, qualitative (01/04/2018 3:08 PM EDT) HCV Negative Negative [facility] Comment: This is a screening test and should be confirmed with molecular testing Blood 01/04/2018 3:08 PM EDT 01/04/2018 3:51 PM EDT us Fidel Minor MD LAB BLOOD ORDERABLES Final Resu lt Performing Organization Address City/[facility]/ZIP Co de Phone Number [address] [address] from Last 3 Months or Most Recently Relevant to Health Maintenance Insurance [facility] C3 ACO Advance Directives For more information, please contact: [phone] (9AM - 5PM [facility], Friday-Friday) Documents on File Type Date Recorded Patient Socket Welder Helper Expl anation Healthcare Proxy 01/07/2018 12:08 PM * Full Code (Confirmed) (Latest Code Status on File) Date Activated Date Inactivated Comments 01/03/2018 8:53 PM 01/06/2018 5:16 PM Question Answer Comments Code Status Confirmed With: Patient Healthcare Agents on File Name Relationship Healthcare Agent [facility] Communication Ibis Loza .Primary Health Care Agent (Proxy form on file) Care Teams Fabric Inspector Relationship Specialty Start Date End Date Leroy Bynum MD [address] [place] [address] [phone] [phone] [email or web address] PCP - General Internal Medicine 01/06/18 Additional Source Comments The information contained in this document represents components of the legal health record. It is not the complete legal health record.[facility]
--- OUTSIDE RECORDS SUMMARY | 2025-03-11 13:58 | XMS_ITS | Encounter Summary ---
Author Organization [facility] Address [address] [place] [phone] Phone Care Team Providers Care Beauty Culturist Name Role Phone Unknown, Unknown Primary Care Provider Leroy Ace MD Primary Care Provide r Encounter Details Date Type Department Care Team (Late st Contact Info) Description 01/04/2018 Procedure [address] [facility], Ct Scan - [address] [address] Social History Tobacco Use Types Packs/Day Years [...] on filedocumented in this encounter Care Teams Beauty Culturist Relationship Specialty Start Date End Date Unknown, Unknown, PCP - General 01/03/18 01/05/18 Leroy Bynum MD [address] [place] [address] PCP - General Internal Medicine 01/06/18 documented as of this encounter Additional Source Comments The information contained in this document represents components of the legal health record. It is not the complete legal health record.[facility]
--- OUTSIDE RECORDS SUMMARY | 2025-03-11 13:58 | XMS_ITS | Encounter Summary ---
Author Organization [facility] Address [address] [place] [phone] Phone Care Team Providers Care Electric Drill Operator Name Role Phone Unknown, Unknown Primary Care Provider Leroy Ace MD Primary Care Provide r Encounter Details Date Type Department Care Team (Late st Contact Info) Description 01/03/2018 Procedure Pass [facility], Ct Scan - [address] [address] Social History Tobacco Use Types Packs/Day Years [...] on filedocumented in this encounter Care Teams Electric Drill Operator Relationship Specialty Start Date End Date Unknown, Unknown, PCP - General 01/03/18 01/05/18 Leroy Bynum MD [address] [facility] [address] [place] [address] PCP - General Internal Medicine 01/06/18 documented as of this encounter Additional Source Comments The information contained in this document represents components of the legal health record. It is not the complete legal health record.[facility]
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
[2025-03-11 14:21] VITALS: BP 122/66; PULSE 59; BMI 38.2
== END 2025-03-11 15:10 | disposition home or self-care (01) ==
PROVIDERS: PCP Internal Medicine; Visit Provider Nurse Practitioner Family
DX: I50.9 Heart failure, unspecified (principal); I50.32 Chronic diastolic (congestive) heart failure; J44.89 Other specified chronic obstructive pulmonary disease; F10.20 Alcohol dependence, uncomplicated; I10 Essential (primary) hypertension; I46.9 Cardiac arrest, cause unspecified
CPT/HCPCS: 99214

== ENCOUNTER → 2025-03-11 13:47 | Outpatient (BNVA) | payer MEDICAID, SELFPAY | PROVIDERS: PCP Internal Medicine; Visit Provider Nurse Practitioner Family | DX: I50.32 Chronic diastolic (congestive) heart failure (principal); F10.20 Alcohol dependence, uncomplicated; I10 Essential (primary) hypertension; I46.9 Cardiac arrest, cause unspecified; J44.89 Other specified chronic obstructive pulmonary disease; I50.9 Heart failure, unspecified | CPT/HCPCS: 99212 ==

== ENCOUNTER 2025-03-28 10:41 | Outpatient (REF) | payer MEDICAID, SELFPAY ==
[2025-03-28 12:01] LABS: NT Pro B Type Natriuretic Pept 762.9 pg/mL (<300)
[2025-03-28 12:06] LABS: Alanine Aminotransferase 55 U/L (0-40); Albumin Level 3.6 g/dL (3.5-5.0); Alkaline Phosphatase 207 U/L (39-117); Anion Gap 14 (12-20); Aspartate Amino Transferase 70 U/L (5-37); Blood Urea Nitrogen 30 mg/dL (9-16); Calcium 9.1 mg/dL (8.4-10.2); Carbon Dioxide 31 mmol/L (22-29); Chloride 97 mmol/L (96-108); Estimated Glomerular Filt Rate 44; Lipase 23 U/L (8-78); Potassium 4.4 mmol/L (3.3-5.1); Sodium 138 mmol/L (135-145); Total Protein 7.9 g/dL (6.5-8.0)
[2025-03-31 17:47] LABS: FIB-ALT 43 U/L (9-46); FIB-Alpha-2-Macroglobulin 129 mg/dL (106-279); FIB-Apolipoprotein A1 177 mg/dL (94-176); FIB-GGT 1366 U/L (3-70); FIB-Haptoglobin 176 mg/dL (43-212); FIB-Total Bilirubin 1.2 mg/dL (0.2-1.2); Liver Fibrosis Score 0.51; Liver Fibrosis Stage F2; Nec Inflam Act Grade A1; Nec Inflam Act Score 0.30
== END 2025-03-28 10:42 | disposition home or self-care (01) ==
LOC: HO.LAB 10:41
PROVIDERS: Nurse Practitioner Family; PCP Internal Medicine; Visit Provider Nurse Practitioner Family
DX: I50.32 Chronic diastolic (congestive) heart failure (principal); K76.0 Fatty (change of) liver, not elsewhere classified; R74.01 Elevation of levels of liver transaminase levels; Z11.59 Encounter for screening for other viral diseases; R10.9 Unspecified abdominal pain
CPT/HCPCS: 36415; 80048; 80076; 81596; 83690; 83880